=== PATIENT | female | born 1930 | race Caucasian/White ===

== ENCOUNTER 2016-07-14 20:04 | Emergency (ER) | payer OTHER, MEDICARE ==
[~2016-07-14 20:04] MED LIST: ADVIL PM CAPLE1 EACH PO; AMLODIPINE BESY10 M1 PO; ASPIR 8181 MG PO; ATORVASTATIN CA80 M1 PO; CARDIZEM60 MG PO; CARVEDILOL3.125 MG PO; COREG 6.256.25 MG PO; COREG6.25 M1 PO; COZAAR 50MG TAB50 MG PO; DIOVAN 160 MG160 MG PO; FLU VACCINE 0.0.5 ML IM; GABAPENTIN100 M2 PO; HYDRALAZINE HCL25 M1 PO; HYDROCHLOROTHIA25 M1 PO; HYDRODIURIL 2525 MG PO; JANUMET 1000 MG1 TAB PO; JANUMET 50-1,01 EACH PO; JANUMET XR 10001 TE1 PO; LEG CRAMPS PM PO; LEVEMIR FL100 UNIT/1 SC; LEVEMIR FLEX100 U/ML SC; LEVEMIR100 U/ML SC; LEVEMIR100 UNIT/1 SC; LYRICA75 M1 PO; LYRICA75 MG PO; METFORMIN ER500 MG PO; METOPROLOL SUCC25 M1 PO; NEURONTIN100 MG PO; NIFEDIPINE ER30 M2 PO; NIFEDIPINE ER30 MG PO; NORVASC 5MG TAB5 MG PO; NOVOLIN R100 UNIT/1 SC; PLAVIX75 M1 PO; PROCARDIA XL30 MG PO; VICODIN 300 MG-1 TAB PO
[2016-07-14] MEDS ORDERED: LOSARTAN POTASS50 M1 PO (20:13)
[2016-07-14] MEDS ORDERED: AMITIZA8 MC1 PO (20:24)
[2016-07-14] MEDS ORDERED: TAMSULOSIN HCL0.4 M1 PO (20:26)
[2016-07-14] MEDS ORDERED: ELIQUIS2.5 M1 PO (20:26)
[2016-07-14] MEDS ORDERED: ATORVASTATIN CA80 M1 PO (20:27)
[2016-07-14] MEDS ORDERED: HYDRALAZINE HCL50 M1 PO (20:27)
[2016-07-14] MEDS ORDERED: GABAPENTIN100 M2 PO (20:27)
[2016-07-14] MEDS ORDERED: LABETALOL HCL200 M1 PO (20:28)
[2016-07-14] MEDS ORDERED: CHOLESTYRAMINE P4 GM PO (20:29)
[2016-07-14] MEDS ORDERED: PERIOGARD473 ML PO (20:30)
[2016-07-14] MEDS ORDERED: NOVOLOG FL100 UNIT/1 SC (20:30)
[2016-07-14] MEDS ORDERED: LO-DOSE ASPIRIN81 MG PO (20:31)
[2016-07-14] MEDS ORDERED: PREVACID30 M2 PO (20:31)
[2016-07-14] MEDS ORDERED: MULTI-DAY VITA1 EACH PO (20:31)
[2016-07-14 20:32] LABS: ABSOLUTE BASOPHIL COUNT 0 /CUMM (0.0-0.2); ABSOLUTE EOSINOPHIL COUNT 0.4 /CUMM (0.0-0.7); ABSOLUTE GRANULOCYTE CT 4.3 /CUMM (1.4-6.5); ABSOLUTE LYMPH COUNT 2.6 /CUMM (1.2-3.4); ABSOLUTE MONOCYTE COUNT 0.7 /CUMM (0.10-0.60); BASOPHIL % 0.5 % (0.0-2.0); EOSINOPHIL % 4.8 % (0-5); GRANULOCYTE % 53.6 % (42.2-75.2); HEMATOCRIT 27.8 % (37-47); MEAN CORPUSCULAR HGB 29.4 PG (27.0-31.0); MEAN CORPUSCULAR HGB CONC 33.4 G/DL (33.0-37.0); MEAN CORPUSCULAR VOLUME 87.9 FL (81.0-99.0); MEAN PLATELET VOLUME 10.2 FL (7.4-10.4); PLATELET COUNT 230 /CUMM (130-400); RBC DISTRIBUTION WIDTH 15.2 % (11.5-14.5); RED BLOOD CELL CT 3.16 /CUMM (4.20-5.40); WHITE BLOOD CELL COUNT 8.1 /CUMM (4.8-10.8)
[2016-07-14] MEDS ORDERED: MAGNESIUM250 M2 PO (20:32)
[2016-07-14] MEDS ORDERED: GAS-X125 MG PO (20:32)
[2016-07-14] MEDS ORDERED: LEVEMIR FL100 UNIT/1 SC (20:33)
[2016-07-14] MEDS ORDERED: IRON325 M3 PO (20:33)
[2016-07-14 20:40] LABS: PTT 32 SEC (25-37)
--- NOTE | 2016-07-14 20:44 | ED GENERAL ADULT ---
History of Present Illness General Chief Complaint: Altered Mental Status Stated Complaint: BIBA FOR AMS Source: patient, family, old records Exam Limitations: language barrier Vital Signs & Intake/Output Vital Signs & Intake/Output Vital Signs Date Time Temp Pulse Resp B/P B/P Pulse O2 O2 Flow FiO2 Mean Ox Delivery Rate 07/14 2233 97.9 78 18 170/73 96 Room Air 07/14 2030 97 Room Air 07/14 2004 97.6 61 18 135/63 96 Room Air Allergies Coded Allergies: NO KNOWN ALLERGIES (05/29/15) Reconcile Medications Apixaban (Eliquis) 2.5 MG TABLET 0.5 TAB PO BID BLOOD THINNER (Reported) Aspirin (Lo-Dose Aspirin EC) 81 MG TABLET.DR 1 TAB PO DAILY HEART/BLOOD ( Reported) Atorvastatin Calcium 80 MG TABLET 1 TAB PO DAILY CHOLESTEROL (Reported) Bisacodyl (Dulcolax) 10 MG SUPP.RECT 1 SUP RC DAILY PRN STOOL SOFTENER Chlorhexidine Gluconate (Periogard) 0.12 % MOUTHWASH 15 ML PO TID GUMS ( Reported) Cholestyramine (With Sugar) (Cholestyramine Packet) 4 GRAM POWD.PACK 1 PAC PO DAILY UNKNOWN (Reported) Ferrous Sulfate (IRON) 325 MG (65 MG IRON) TABLET 1 TAB PO DAILY SUPPLEMENT ( Reported) Gabapentin 100 MG CAPSULE 2 CAP PO DAILY UNKNOWN (Reported) Hydralazine HCl 50 MG TABLET 1 TAB PO Q8H HEART/BP (Reported) Insulin Aspart, Recombinant (Novolog Flexpen) 100 UNIT/ML INSULN.PEN DM ( Reported) Insulin Detemir (Levemir Flextouch) 100 UNIT/ML (3 ML) INSULN.PEN 20 UNITS SC DAILY DM (Reported) Labetalol HCl 200 MG TABLET 1 TAB PO BID HEART/BP (Reported) Lansoprazole (Prevacid) 30 MG TAB.RAP.DR 1 TAB PO DAILY GI (Reported) Losartan Potassium 50 MG TABLET 1 TAB PO BID HEART/BP (Reported) Lubiprostone (Amitiza) 8 MCG CAPSULE 1 CAP PO BID GI (Reported) Magnesium Oxide (Magnesium) 250 MG TABLET 1 TAB PO BID SUPPLEMENT (Reported) Multivitamin (Multi-Day Vitamins) 1 EACH TABLET 1 TAB PO DAILY SUPPLEMENT ( Reported) Peg 3350/Na Sulf,Bicarb,Cl/KCl (Golytely Packet) 227.1-21.5 POWD.PACK 1 PAC G TUBE ONCE PRN CONSTIPATION MIX WITH 6-8 OZ OF WATER Simethicone (Gas-X) 125 MG CAPSULE 1 CAP PO 4XDAILY GAS (Reported) Tamsulosin HCl 0.4 MG CAP.ER.24H 1 CAP PO DAILY (Reported) Triage Note: BIBA FROM HOME FOR INCREASED LETHARGY AND ?AMS. FAMILY REPORTS TO EMS DECREASED PO INTAKE AND DIARRHEA X3-4 DAYS. FAMILY ALSO STATES PT IS MORE SLOW TO RESPOND THAN USUAL. ALERT, ABLE TO ANSWER QUESTIONS AND FOLLOW COMMANDS. COMPLETE L SIDED PARALYSIS S/P CVA. DENIES PAIN. Triage Nurses Notes Reviewed? 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 Family also state the patient's head generalized weakness and malaise and mumbling of words and confusion. Patient's had decreased by mouth intake. Patient does have a G- tube for feeding due to the past history of stroke. Denies any fevers chills chest pain cough shortness of breath (EDY WANG) Past History Travel History Traveled to [place] past 21 day No Medical History Any Pertinent Medical History? see below for history Neurological: CVA EENT: cataracts, epistaxis Cardiovascular: AFIB, hypertension, hyperlipidemia, varicose veins Respiratory: pulmonary embolism, pulmonary edema Gastrointestinal: ACID REFLUX Hepatic: NONE Renal: RENAL ARTERY STENOSIS Musculoskeletal: chronic back pain, disk herniation, osteoarthritis, Back surgery Psychiatric: NONE Endocrine: DM Blood Disorders: NONE Cancer(s): NONE RN PHYSICIAN OFFICE/Reproductive: fibroid, UTERINE FIBROIDS History of MRSA: No History of VRE: No History of CDIFF: No Surgical History Surgical History: BACK SURGERY Psychosocial History Who do you live with Daughter Services at Home None What is your primary language Lithuanian Tobacco Use: Cognitive Impairment Family History Family History, If Any: BROTHER (unknown). MOTHER ( unknown medical hx). . Hx Contributory? No (EDY WANG) Review of Systems Review of Systems Constitutional: Reports: see HPI, malaise, weakness. Denies: chills, fever. EENTM: Reports: no symptoms. Respiratory: Reports: no symptoms. Cardiovascular: Reports: no symptoms. GI: Reports: see HPI. Genitourinary: Reports: no symptoms. Musculoskeletal: Reports: no symptoms. Skin: Reports: no symptoms. Neurological/Psychological: Reports: no symptoms. Hematologic/Endocrine: Reports: no symptoms. Immunologic/Allergic: Reports: no symptoms. All Other Systems: Reviewed and Negative (EDY WANG) Physical Exam Physical Exam General Appearance: no apparent distress, alert, awake, comfortable Head: atraumatic Eyes: Bilateral: normal appearance, PERRL, EOMI. Ears, Nose, Throat: normal pharynx, normal ENT inspection, hearing grossly normal Neck: normal inspection Respiratory: normal breath sounds, chest non-tender, no respiratory distress Cardiovascular: regular rate/rhythm Peripheral Pulses: 2+ radial (R), 2+ radial (L) Gastrointestinal: soft, G-TUBE PLACEMENT NOTED NORMAL INSPECTION GENERALIZED POINT TENDERNESS NOTED Extremities: normal inspection, normal capillary refill, no edema Skin: intact, normal color, warm/dry Comments: Left upper and lower extremity noted paralysis Right upper extremity and lower extremity myotome's intact Core Measures ACS in differential dx? No CVA/TIA Diagnosis: No Severe Sepsis Present: No Septic Shock Present: No (EDY WANG) Progress Differential Diagnoses I considered the following diagnoses in my evaluation of the patient: [Sepsis, UTI, pneumonia, TIA, CVA, dehydration, electrolyte abnormality,RETA fecal impaction, constipation, obstruction of bowel] Plan of Care: Orders Procedure Date/time Status CULTURE,STOOL 07/14 2045 Active C.DIFFICILE 07/14 2045 Active CULTURE,URINE 07/14 2042 Active Add-on Test (ER Only) 07/14 2040 Active Straight Cath 07/14 2040 Active BLOOD CULTURE 07/15 2039 Active LIPASE 07/15 2019 Complete LACTIC ACID 07/15 2019 Complete AMYLASE 07/15 2019 Complete BLOOD CULTURE 07/14 2018 Active URINALYSIS 07/14 2018 Complete TROPONIN LEVEL 07/14 2018 Complete PARTIAL THROMBOPLASTIN TIME 07/14 2018 Complete PROTHROMBIN TIME 07/14 2018 Complete COMPREHENSIVE METABOLIC PANEL 07/14 2018 Complete CBC WITHOUT DIFFERENTIAL 07/14 2018 Complete EKG 07/14 2014 Active Laboratory Tests 07/14/162114: Urine Color YEL, Urine Clarity CLEAR, Urine pH 5.5, Ur Specific [place] 1.025, Urine Protein NEG, Urine Ketones NEG, Urine Nitrite NEG, Urine Bilirubin NEG, Urine Urobilinogen 0.2, Ur Leukocyte Esterase NEG, Ur Microscopic EXAM NOT REQUIRED, Urine Hemoglobin NEG, Urine Glucose NEG 07/14/162019: Anion Gap 13, Estimated GFR 59 L, BUN/Creatinine Ratio 35.6 H, Glucose 130 H, Lactic Acid 1.3, Calcium 9.6, Total Bilirubin 1.0, AST 35, ALT 38, Alkaline Phosphatase 179 H, Troponin I < 0.01, Total Protein 6.3, Albumin 3.4 L, Globulin 2.9, Albumin/Globulin Ratio 1.2, Amylase 68, Lipase 71, PT 14.0 H, INR 1.34 H, APTT 32, CBC w Diff NO MAN DIFF REQ, RBC 3.16 L, MCV 87.9, MCH 29.4, RDW 15.2 H, MPV 10.2, Gran % 53.6, Lymphocytes % 32.5, Monocytes % 8.6, Eosinophils % 4.8, Basophils % 0.5, Absolute Granulocytes 4.3, Absolute Lymphocytes 2.6, Absolute Monocytes 0.7 H, Absolute Eosinophils 0.4, Absolute Basophils 0, PUBS MCHC 33.4 Microbiology 07/14 2205 BLOOD: Blood Culture - RECD 07/14 2114 URINE ROUT: Urine Culture - RECD 07/14 2114 STOOL: Clostridium difficile Toxin A & B - RECD 07/14 2114 STOOL: Stool Culture - RECD 07/15 2019 BLOOD: Blood Culture - RECD Patient on this examination does follow all commands Patient does know moderate Mongolian and does cooperate Patient was afebrile blood work was unremarkable urine unremarkable blood cultures pending urine culture pending CT scan of chest was unremarkable however CT scan of abdomen shows consideration of fecal impaction. Lying patient left lateral upon digital rectal exam performed by me I was unable to palpate impaction patient also had a side lying Fleet enema placed with no significant bowel movements produced. Bowel is brown in nature negative fecal occult I discussed disposition and plan with family members in which they state that since patient has had a stroke she has not left the residence except via ambulance. Patient does have home care and visiting nurses however when discussing with patient plan of following up that they were unable to follow-up in outpatient service for fecal impaction that I advised patient to return to emergency room if symptoms worsen and if no improvement on Friday to return to emergency room if patient still had presenting complaints as today. Discussed patient with Dr. Felipe who also agrees. Patient will be transported via [facility]. I advice family member and caregiver to begin stool softener and laxative to improve symptoms At this time patient's only option for follow-up is to return to the emergency room if she continues to have symptoms (NICK HUGHES,EDY) Diagnostic Imaging: Viewed by Me: CT Scan. Radiology Impression: SEE COMMENTS Initial ED EKG: sINUS ARRHYTHMIA NOTED AT 61 BPM WITH FIRST-DEGREE av BLOCK Prior EKG: unchanged Comments: PATIENT: CHAMP COBIAN PRESENT AGE: 85 PATIENT ACCOUNT NO: [id number] : 29 LOCATION: ER ORDERING PHYSICIAN: EDY HUGHES SERVICE DATE: 07/14/16 EXAM TYPE: CAT - CT ABD & PELVIS W/O IV CONTRAS; CT CHEST WO IV CONTRAST EXAMINATION: CT CHEST WITHOUT CONTRAST CT ABDOMEN AND PELVIS WITHOUT CONTRAST CLINICAL INFORMATION: Abdominal pain. Malaise. Altered mental status. COMPARISON: CT chest 10/24/2015. CT scan abdomen and pelvis 05/29/2015. TECHNIQUE: Axial images obtained through the chest, abdomen and pelvis without oral or intravenous contrast. DLP: 1162.24 mGy-cm. FINDINGS: CT CHEST: Lungs: The lungs are clear with no evidence of inflammation or nodules. Mediastinum: No mediastinal mass. No significant lymphadenopathy. Small shotty subcentimeter lymph nodes in the mediastinum. There is vascular calcifications of the aorta and coronary arteries. No pericardial effusion. Pleura: There is no pleural effusion. No pleural mass or thickening. Axilla: No lymphadenopathy. CT ABDOMEN AND PELVIS: LIVER, GALLBLADDER, AND BILIARY TREE: The liver is normal in size, shape, and attenuation. No focal hepatic lesion or biliary ductal dilatation is present. The gallbladder is unremarkable with no evidence of radiopaque gallstones, gallbladder wall thickening, or obvious pericholecystic inflammatory changes. PANCREAS: No acute change of the pancreas. No mass. No pancreatic duct dilatation. SPLEEN: Spleen normal in size and contour. No focal lesion. ADRENAL GLANDS: Adrenal glands are normal in size. No focal mass. KIDNEYS AND URETERS: Pedunculated cyst at the mid posterior pole of the left kidney measuring 1.5 cm. Cortical cyst in the midpole of right kidney measuring 1.3 cm. No renal or ureteral calculi. No hydronephrosis. BLADDER: Unremarkable. GASTROINTESTINAL TRACT: Percutaneous gastrotomy catheter in place. There is thickening of the wall of the distal rectum sigmoid measuring 1 cm. Stool is impacted in the rectum sigmoid. There is edema in the surrounding soft tissues extending into the presacral fat. Findings are that of fecal impaction with stercoral colitis. Moderate amount of scattered stool through the remainder of the colon. There is diverticulosis of colon but no diverticulitis. The appendix is not seen. No inflammation of the right lower quadrant mesentery. The small bowel loops are normal. MESENTERY: No free air or free fluid. Edema in the presacral space around the rectum sigmoid related to stercoral colitis. ABDOMINAL WALL: No significant hernia is appreciated. LYMPH NODES: Normal. VASCULAR: Atherosclerotic vascular calcifications of the aorta and major branch vessels of the aorta. PELVIC VISCERA: Uterus is anteverted. Calcified fibroid in the left fundal region. No adnexal abnormality. OSSEOUS STRUCTURES: Multilevel degenerative change of the spine with endplate spurs and facet joint arthrosis. IMPRESSION: CT CHEST: No acute change. CT SCAN ABDOMEN AND PELVIS: Fecal impaction in rectum and sigmoid with bowel wall thickening and surrounding edema in the rectum sigmoid consistent with stercoral colitis. DICTATED BY: ANNA PAGAN MD DATE/TIME DICTATED:07/14/162140 REBAR WORKER:ZOHREH DATE/TIME TRANSCRIBED:07/14/162140 PATIENT: CHAMP COBIAN PRESENT AGE: 85 PATIENT ACCOUNT NO: [id number] : 29 LOCATION: [facility] ORDERING PHYSICIAN: EDY HUGHES SERVICE DATE: 07/14/16 EXAM TYPE: CAT - CT HEAD WO IV CONTRAST EXAMINATION: CT HEAD WITHOUT CONTRAST CLINICAL INFORMATION: History of right CVA COMPARISON: CT of head 12/31/2015 TECHNIQUE: Contiguous axial imaging was performed from the skull base to vertex without intravenous administration of contrast. DLP: 743.8 mGy-cm FINDINGS: There is focal encephalomalacia in the right parietal lobe from old MCA infarct stable since prior exam. There is no evidence of acute intracranial hemorrhage or acute territorial infarction. No abnormal mass effect or midline shift is seen. Francis to white matter differentiation is well preserved. No extra-axial fluid collections are identified. There is atrophy with prominence of the ventricles and the sulci and hypodensity of the periventricular white matter due to chronic small vessel ischemic disease. There is vascular calcifications of the internal carotid arteries bilaterally. The osseous structures and soft tissues are normal. The mastoid air cells and visualized portions of the paranasal sinuses are well aerated. IMPRESSION: 1. No acute intracranial pathology. 2. Old right MCA territory infarct stable since prior CAT scan of 2015 (EDY WANG) Departure Departure Disposition: HOME OR SELF CARE Condition: Stable Clinical Impression Primary Impression: Fecal impaction Referrals: TYLOR ARORA,RAMBO David (PCP/Family) Additional Instructions: As discussed begin the prescription of the DOCULSATE for stool softener and a prescription of GoLYTELY for constipation. If symptoms worsen return to emergency room. If no better on Friday return to emergency room Prescriptions waiting at [facility] Continue home medications Departure Forms: Customer Survey General Discharge Information Prescriptions: Current Visit Scripts Bisacodyl (Dulcolax) 1 SUP RC DAILY PRN STOOL SOFTENER #10 SUP Peg 3350/Na Sulf,Bicarb,Cl/KCl (Golytely Packet) 1 PAC G TUBE ONCE PRN CONSTIPATION #1 PAC Ref 1 MIX WITH 6-8 OZ OF WATER (EDY WANG) PA/REAL ESTATE SPECIALIST Co-Sign Statement Statement: ED Attending supervision documentation- [] I saw and evaluated the patient. I have also reviewed all the pertinent lab results and diagnostic results. I agree with the findings and the plan of care as documented in the PA's/REAL ESTATE SPECIALIST's documentation. [x] I have reviewed the ED Record and agree with the PA's/REAL ESTATE SPECIALIST's documentation. [] Additions or exceptions (if any) to the PAs/REAL ESTATE SPECIALIST's note and plan are summarized below: [] (CARROLL ARORA,LEONOR Sanabria) Critical Care Note Critical Care Note Critical Care Time: non-applicable (EDY WANG)
--- NOTE | 2016-07-14 21:44 | CT SCAN REPORT ---
EXAMINATION: CT HEAD WITHOUT CONTRAST CLINICAL INFORMATION: History of right CVA COMPARISON: CT of head 12/31/2015 TECHNIQUE: Contiguous axial imaging was performed from the skull base to vertex without intravenous administration of contrast. DLP: 743.8 mGy-cm FINDINGS: There is focal encephalomalacia in the right parietal lobe from old MCA infarct stable since prior exam. There is no evidence of acute intracranial hemorrhage or acute territorial infarction. No abnormal mass effect or midline shift is seen. Francis to white matter differentiation is well preserved. No extra-axial fluid collections are identified. There is atrophy with prominence of the ventricles and the sulci and hypodensity of the periventricular white matter due to chronic small vessel ischemic disease. There is vascular calcifications of the internal carotid arteries bilaterally. The osseous structures and soft tissues are normal. The mastoid air cells and visualized portions of the paranasal sinuses are well aerated. IMPRESSION: 1. No acute intracranial pathology. 2. Old right MCA territory infarct stable since prior CAT scan of 2015
--- NOTE | 2016-07-14 22:07 | CT SCAN REPORT ---
EXAMINATION: CT CHEST WITHOUT CONTRAST CT ABDOMEN AND PELVIS WITHOUT CONTRAST CLINICAL INFORMATION: Abdominal pain. Malaise. Altered mental status. COMPARISON: CT chest 10/24/2015. CT scan abdomen and pelvis 05/29/2015. TECHNIQUE: Axial images obtained through the chest, abdomen and pelvis without oral or intravenous contrast. DLP: 1162.24 mGy-cm. FINDINGS: CT CHEST: Lungs: The lungs are clear with no evidence of inflammation or nodules. Mediastinum: No mediastinal mass. No significant lymphadenopathy. Small shotty subcentimeter lymph nodes in the mediastinum. There is vascular calcifications of the aorta and coronary arteries. No pericardial effusion. Pleura: There is no pleural effusion. No pleural mass or thickening. Axilla: No lymphadenopathy. CT ABDOMEN AND PELVIS: LIVER, GALLBLADDER, AND BILIARY TREE: The liver is normal in size, shape, and attenuation. No focal hepatic lesion or biliary ductal dilatation is present. The gallbladder is unremarkable with no evidence of radiopaque gallstones, gallbladder wall thickening, or obvious pericholecystic inflammatory changes. PANCREAS: No acute change of the pancreas. No mass. No pancreatic duct dilatation. SPLEEN: Spleen normal in size and contour. No focal lesion. ADRENAL GLANDS: Adrenal glands are normal in size. No focal mass. KIDNEYS AND URETERS: Pedunculated cyst at the mid posterior pole of the left kidney measuring 1.5 cm. Cortical cyst in the midpole of right kidney measuring 1.3 cm. No renal or ureteral calculi. No hydronephrosis. BLADDER: Unremarkable. GASTROINTESTINAL TRACT: Percutaneous gastrotomy catheter in place. There is thickening of the wall of the distal rectum sigmoid measuring 1 cm. Stool is impacted in the rectum sigmoid. There is edema in the surrounding soft tissues extending into the presacral fat. Findings are that of fecal impaction with stercoral colitis. Moderate amount of scattered stool through the remainder of the colon. There is diverticulosis of colon but no diverticulitis. The appendix is not seen. No inflammation of the right lower quadrant mesentery. The small bowel loops are normal. MESENTERY: No free air or free fluid. Edema in the presacral space around the rectum sigmoid related to stercoral colitis. ABDOMINAL WALL: No significant hernia is appreciated. LYMPH NODES: Normal. VASCULAR: Atherosclerotic vascular calcifications of the aorta and major branch vessels of the aorta. PELVIC VISCERA: Uterus is anteverted. Calcified fibroid in the left fundal region. No adnexal abnormality. OSSEOUS STRUCTURES: Multilevel degenerative change of the spine with endplate spurs and facet joint arthrosis. IMPRESSION: CT CHEST: No acute change. CT SCAN ABDOMEN AND PELVIS: Fecal impaction in rectum and sigmoid with bowel wall thickening and surrounding edema in the rectum sigmoid consistent with stercoral colitis.
[2016-07-14 22:34] VITALS: BP 170/73
[2016-07-14] MEDS ORDERED: DULCOLAX10 M1 RC (23:25)
[2016-07-14] MEDS ORDERED: GOLYTELY PACKE1 EACH G TUBE (23:25)
== END 2016-07-14 23:33 ==
LOC: ERH 20:04
PROVIDERS: Emergency Medicine
DX: K56.41 Fecal impaction (principal); R19.7 Diarrhea, unspecified; R53.1 Weakness; I10 Essential (primary) hypertension; I48.91 Unspecified atrial fibrillation; E11.9 Type 2 diabetes mellitus without complications; Z79.4 Long term (current) use of insulin
CPT/HCPCS: 74176; 81003; 87040; 87045; 87086; 87147; 93005; 93010

== ENCOUNTER 2016-07-19 11:53 | Inpatient (IN) | payer OTHER, MEDICARE ==
[~2016-07-19] VITALS: Ht 157.5 cm; Wt 74.6 kg
[~2016-07-19 11:53] MED LIST changes: +AMITIZA8 MC1 PO; +CHOLESTYRAMINE P4 GM PO; +DULCOLAX10 M1 RC; +ELIQUIS2.5 M1 PO; +GAS-X125 MG PO; +GOLYTELY PACKE1 EACH G TUBE; +HYDRALAZINE HCL50 M1 PO; +IRON325 M3 PO; +LABETALOL HCL200 M1 PO; +LO-DOSE ASPIRIN81 MG PO; +LOSARTAN POTASS50 M1 PO; +MAGNESIUM250 M2 PO; +MULTI-DAY VITA1 EACH PO; +NOVOLOG FL100 UNIT/1 SC; +PERIOGARD473 ML PO; +PREVACID30 M2 PO; +TAMSULOSIN HCL0.4 M1 PO
--- NOTE | 2016-07-19 12:01 | ED AMS/SEIZURE/WEAK/DIZZY ---
History of Present Illness General Chief Complaint: Altered Mental Status Stated Complaint: HYPOGLYCEMIA Source: patient, old records, [employer] Exam Limitations: clinical condition Vital Signs & Intake/Output Vital Signs & Intake/Output Vital Signs Date Time Temp Pulse Resp B/P B/P Pulse O2 O2 Flow FiO2 Mean Ox Delivery Rate 07/19 1400 96.0 59 16 157/67 99 Nasal 2.0L Cannula 07/19 1300 98 Nasal 2.0L Cannula 07/19 1204 97.0 65 20 135/62 97 Room Air Allergies Coded Allergies: NO KNOWN ALLERGIES (05/29/15) Reconcile Medications Apixaban (Eliquis) 5 MG TABLET 5 MG PO BID a fib Aspirin (Lo-Dose Aspirin EC) 81 MG TABLET.DR 1 TAB PO MoTuFr HEART/BLOOD ( Reported) Atorvastatin Calcium 80 MG TABLET 1 TAB PO 1700 HLD (Reported) Chlorhexidine Gluconate (Periogard) 0.12 % MOUTHWASH 15 ML PO MoWeFr GUMS ( Reported) Ferrous Sulfate (IRON) 325 MG (65 MG IRON) TABLET 1 TAB PO DAILY SUPPLEMENT ( Reported) Gabapentin 100 MG CAPSULE 2 CAP PO BID NEUROPATHIC PAIN (Reported) Hydralazine HCl 25 MG TABLET 100 MG PO BID high blood pressure Insulin Aspart (Novolog) 100 UNIT/ML VIAL 0 UNITS SC TIDAC diabetes 80 - 150 0 units 151 - 200 1 unit 201 - 250 2 units 251 - 300 3 units 301 - 350 4 units 351 - 400 6 units > 400 8 units and call Insulin Detemir (Levemir) 100 UNIT/ML VIAL 10 UNITS SC AT BEDTIME diabetes Insulin Detemir (Levemir) 100 UNIT/ML VIAL 10 UNITS SC BID DIABETES Labetalol HCl 100 MG TABLET 50 MG PO BID a fib Lansoprazole (Prevacid) 30 MG TAB.RAP.DR 1 TAB PO DAILY GI (Reported) Losartan Potassium 50 MG TABLET 1 TAB PO BID HEART/BP (Reported) Multivitamin (Multi-Day Vitamins) 1 EACH TABLET 1 TAB PO DAILY SUPPLEMENT ( Reported) Tamsulosin HCl 0.4 MG CAP.ER.24H 1 CAP PO AT BEDTIME (Reported) Triage Nurses Notes Reviewed? yes Onset: Abrupt Timing: single episode today Injury Environment: home Severity: moderate, severe No Modifying Factors: none Associated Symptoms: UNRESPONSIVE HPI: This is an 85-year-old female with history of stroke on Eliquis with left-sided paralysis who presents via EMS from home for chief complaint of unresponsive episode. According to family member and the aid she appeared to have some respiratory distress as she was sleeping. They state that her face got very red. He found her to be hypoglycemic and hypotensive in the field. She was given glucose and IV fluids. Patient arrives awake but lethargic. She appears pale. Patient was seen here on Friday for abdominal pain and she was determined to have fecal impaction and sent home with [employer]. They were unable to get preauthorization for the sairaly so she has been getting lactulose for the last couple days. She's been having good bowel movements with that. No vomiting. She's had some diminished oral intake. She did have some scrambled eggs this morning. Heart rate found to be in the 40s on the monitor. No history of bradycardia. History of A. fib in the past. She is currently on labetalol. No recent changes to her beta blockers. Past History Travel History Traveled to [place] past 21 day No Medical History Any Pertinent Medical History? 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 MOTHER ( unknown medical hx). . Hx Contributory? No Review of Systems Review of Systems Constitutional: Reports: see HPI (PER FAMILY). EENTM: Reports: no symptoms. Respiratory: Denies: short of breath. Cardiovascular: Denies: chest pain. GI: Reports: constipation. Denies: vomiting. Genitourinary: Denies: frequency. Musculoskeletal: Reports: no symptoms. Skin: Reports: no symptoms. Neurological/Psychological: Reports: see HPI (UNRESPONSIVE EPISODE). Hematologic/Endocrine: Denies: bleeding. Immunologic/Allergic: Reports: no symptoms. All Other Systems: Reviewed and Negative Physical Exam Physical Exam General Appearance: alert, awake, mild distress, thin Head: atraumatic, normal appearance Eyes: Bilateral: PERRL, EOMI. Ears, Nose, Throat: normal pharynx Neck: normal inspection, supple, full range of motion Cardiovascular: bradycardia Peripheral Pulses: 2+ radial (R), 2+ radial (L) Gastrointestinal: soft, non-tender Extremities: normal range of motion Neurologic/Psych: awake, oriented x 3 Skin: warm/dry, pallor Core Measures ACS in differential dx? Yes ASA ordered for poss ACS? No-ACS ruled out CVA/TIA Diagnosis: No Severe Sepsis Present: No Septic Shock Present: No Progress Differential Diagnosis: arrythmia, anemia, electrolyte imbalance, sepsis, cva/ tia, MEDICATION SIDE EFFECT, SICK SINUS Plan of Care: Orders Procedure Date/time Status Vital Signs 07/19 143 Active Code Status 07/19 1434 Active Patient Data 07/19 1412 Active Admit to inpatient 07/19 1334 Active Add-on Test (ER Only) 07/19 1321 Active Add-on Test (ER Only) 07/19 1316 Active EKG 07/19 1312 Active Add-on Test (ER Only) 07/19 1228 Active Straight Cath 07/19 1228 Active URINE DRUGS OF ABUSE 07/19 1228 Active URINALYSIS 07/19 1228 Active TROPONIN LEVEL 07/19 1208 Complete PROTHROMBIN TIME 07/19 1208 Complete MAGNESIUM 07/19 1208 Complete LACTIC ACID 07/19 1208 Complete COMPREHENSIVE METABOLIC PANEL 07/19 1204 Complete CBC WITHOUT DIFFERENTIAL 07/19 1204 Complete EKG 07/19 1204 Active Current Medications Sig/Renee Start time Last Medication Dose Stop Time Status Admin Amiodarone HCl/ 150 MG ONCE ONE 07/19 1330 CAN Dextrose 07/19 1339 (Nexterone) N/A 1 UNIT (No Carrier) Magnesium Sulfate 1 GM ONCE ONE 07/19 1330 AC (Mag Sulfate in D5) 07/19 1729 Dextrose/Water 100 ML (D5W) Laboratory Tests 07/19/16 1208: Anion Gap 11, Estimated GFR 59 L, BUN/Creatinine Ratio 22.2, Glucose 145 H, Lactic Acid 0.9, Calcium 8.8, Magnesium 1.9, Total Bilirubin 0.8, AST 36, ALT 51 , Alkaline Phosphatase 194 H, Troponin I < 0.01, Total Protein 5.2 L, Albumin 2.7 L, Globulin 2.5, Albumin/Globulin Ratio 1.1, PT 13.1 H, INR 1.25 H, CBC w Diff NO MAN DIFF REQ, RBC 2.76 L, MCV 87.9, MCH 28.8, RDW 15.0 H, MPV 10.4, Gran % 62.8, Lymphocytes % 25.0, Monocytes % 8.8, Eosinophils % 3.1, Basophils % 0.3, Absolute Granulocytes 3.8, Absolute Lymphocytes 1.5, Absolute Monocytes 0.5 , Absolute Eosinophils 0.2, Absolute Basophils 0, PUBS MCHC 32.8 L EKG, TELE MONITOR, XRAY, LABS ORDERED. PATIETN BRADYCARDIC IN HIGH 40'S. NO HISTORY OF BRADYCARDIA PER FAMILY AT BEDSIDE. PATIENT DOES NOT CONTRIBUTE MUCH TO HISTORY TAKING. - LOW K. IV POTASSIUM ORDERED. D/W DR BOLAND. POSSIBLE NON SUSTAINED VTACH ON MONITOR. COPY OF TRACING ON MONITOR REVIEWED WITH DR. BOLAND. FEELS LIKELY DUE TO ARTIFACT RATHER THAN TRUE DYSRHYTHMMIA. ADVISES AGAINST IV AMIODARONE. PATIENT TO REMAIN ON TELE MONITOR. PACER PADS PLACED. WILL BE ADMITTED TO TELEMETRY UNDER HOSPITALIST SERVICE. DAUGHTER JORDAN: [phone] (IN [place]) (AJ ARORA,DG) Diagnostic Imaging: Viewed by Me: Radiology Read. Discussed w/RAD: Radiology Read. Initial ED EKG: SINUS BRADYCARDIA Rhythm Strip: sinus bradycardia, atrial fibrillation Comments: PATIENT: CHAMP COBIAN PRESENT AGE: 85 PATIENT ACCOUNT NO: [id number] : 29 LOCATION: [facility] ORDERING PHYSICIAN: DG ROCHA MD SERVICE DATE: 07/19/16 EXAM TYPE: RAD - XRY-PORTABLE CHEST XRAY EXAMINATION: XR PORTABLE CHEST CLINICAL INFORMATION: Altered mental status. Evaluate for pneumonia. COMPARISON: Chest x-ray most recent prior dated 01/09/2016. TECHNIQUE: Portable frontal view of the chest was obtained. FINDINGS: Mild cardiomegaly. Central pulmonary vascular congestion. Hazy prominence of the interstitial markings slightly increased over the interval suspicious for mild interstitial edema. Differential possibility includes viral type pneumonia in the appropriate clinical setting. No gross pleural effusion. IMPRESSION: Mild vascular congestion. Mild pulmonary edema or community-acquired/viral pneumonia in the appropriate clinical setting. DICTATED BY: MICHAEL BURKS MD DATE/TIME DICTATED:07/19/161325 ETL CONSULTANT:ZOHREH DATE/TIME TRANSCRIBED:07/19/161325 CONFIDENTIAL, DO NOT COPY WITHOUT APPROPRIATE AUTHORIZATION. <Electronically signed in Other Vendor System> SIGNED BY: MICHAEL BURKS MD 07/19/16 1333 Departure Departure Time of Disposition: 1330 Disposition: STILL A PATIENT Condition: Stable Clinical Impression Primary Impression: Bradycardia Secondary Impressions: CHF (congestive heart failure), Hypokalemia, Non- sustained ventricular tachycardia, Sick sinus syndrome Referrals: TYLOR ARORA,RAMBO David (PCP/Family) Departure Forms: Customer Survey General Discharge Information Prescriptions: Current Visit Scripts Apixaban (Eliquis) 5 MG PO BID #30 Hydralazine HCl 100 MG PO BID #60 Labetalol HCl 50 MG PO BID #60 Insulin Detemir (Levemir) 10 UNITS SC AT BEDTIME 30 Days Insulin Aspart (Novolog) 0 UNITS SC TIDAC 30 Days 80 - 150 0 units 151 - 200 1 unit 201 - 250 2 units 251 - 300 3 units 301 - 350 4 units 351 - 400 6 units > 400 8 units and call Insulin Detemir (Levemir) 10 UNITS SC BID #10 ML Admission Note Spoke With: MANI MONIQUE MD Documentation of Exam: Documentation of any treatments & extenuating circumstances including Concerns Regarding Discharge (functional status, medication knowledge or non-compliance, living conditions, etc.) that warrant an admission rather than observation: [ TELE MONITOR, PACER PADS, CARDIOLOGY EVALUATION DR BOLAND (CONSULTED), HOLD BETA CBLOCKERS, MONITOR RENAL FUNCTION/ELECTROLYTES, ECHOCARDIOGRAM]
--- NOTE | 2016-07-19 12:13 | NUR ---
PT BIBA FOR AN UNRESPONSIVE EPISODE AND LOW BLOOD SUGAR. PER EMS ON ARRIVAL PT HAD AGONAL RESPIRATIONS AND WAS UNRESPONSIVE. PT WAS FOUND TO HAVE A BS OF 41. PT WAS GIVEN AN AMP OF D50 WITH GOOD RESPONSE. PT ARRIVES IN ER ALERT AND ANSWERING QUESTIONS. PT BS ON ARRIVAL IS 167. PT DENIES ANY COMPLAINTS. PT REORIENTED TO WHY SHE ARRIVED IN ER. PT STATES SHE HAS BEEN TAKING HER MEDICATION CORRECTLY. PT HAS A HX OF CVA
--- NOTE | 2016-07-19 12:14 | NUR ---
LABS DRAWN AND SENT
[2016-07-19 12:24] LABS: ABSOLUTE BASOPHIL COUNT 0 /CUMM (0.0-0.2); ABSOLUTE EOSINOPHIL COUNT 0.2 /CUMM (0.0-0.7); ABSOLUTE GRANULOCYTE CT 3.8 /CUMM (1.4-6.5); ABSOLUTE LYMPH COUNT 1.5 /CUMM (1.2-3.4); ABSOLUTE MONOCYTE COUNT 0.5 /CUMM (0.10-0.60); BASOPHIL % 0.3 % (0.0-2.0); EOSINOPHIL % 3.1 % (0-5); GRANULOCYTE % 62.8 % (42.2-75.2); HEMATOCRIT 24.3 % (37-47); MEAN CORPUSCULAR HGB 28.8 PG (27.0-31.0); MEAN CORPUSCULAR HGB CONC 32.8 G/DL (33.0-37.0); MEAN CORPUSCULAR VOLUME 87.9 FL (81.0-99.0); MEAN PLATELET VOLUME 10.4 FL (7.4-10.4); PLATELET COUNT 209 /CUMM (130-400); RED BLOOD CELL CT 2.76 /CUMM (4.20-5.40)
--- NOTE | 2016-07-19 12:31 | NUR ---
PT CLEANED AND CHANGED AND FAMILY AT BEDSIDE DR ROCHA ALSO AT BEDSIDE FOR EVALUATION
--- NOTE | 2016-07-19 13:28 | NUR ---
EVENT STRIP AT 1310 SHOWED A RUN OF VTACH DR ROCHA AWARE AND PACER PADS PLACED ON PT AND EKG DONE STAT
--- NOTE | 2016-07-19 13:33 | RADIOLOGY REPORT ---
EXAMINATION: XR PORTABLE CHEST CLINICAL INFORMATION: Altered mental status. Evaluate for pneumonia. COMPARISON: Chest x-ray most recent prior dated 01/09/2016. TECHNIQUE: Portable frontal view of the chest was obtained. FINDINGS: Mild cardiomegaly. Central pulmonary vascular congestion. Hazy prominence of the interstitial markings slightly increased over the interval suspicious for mild interstitial edema. Differential possibility includes viral type pneumonia in the appropriate clinical setting. No gross pleural effusion. IMPRESSION: Mild vascular congestion. Mild pulmonary edema or community-acquired/viral pneumonia in the appropriate clinical setting.
[2016-07-19 13:54] LABS: PT 13.1 SEC (9.4-12.5)
--- NOTE | 2016-07-19 14:54 | History & Physical ---
FOUZIAJuanaElySKYEASHVIN 07/19/16 1454: General Information and HPI MD Statement: I have seen and personally examined CHAMP LANDAVERDE and documented this H&P. The patient is a 85 year old F who presented with a patient stated chief complaint of unresponsive episode. Source of Information: family, old records, EMS Exam Limitations: clinical condition, poor historian History of Present Illness: Ms Landaverde is an 85-year-old woman who was known to be in her usual state of health until the last 2 weeks. 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 She was brought to [facility] after found to be unresponsive by her soaker meat this a.m. As per the patient's family, Ms. Landaverde was more lethargic and had decreased by mouth intake in the last 2 weeks. She was recently seen in [facility] 1 week ago for a chief concern of abdominal discomfort, secondary to fecal impaction. After the patient had a nap late morning today, she was found to have had difficulty breathing, diaphoretic and was unresponsive subsequently. Blood glucose reading at that time was less than 50 mg/dl. She regained consciousness after she received dextrose IV. She also complained of chest discomfort, with no radiation. Details of chest discomfort could not be obtained from the patient. As per the family, Ms. Landaverde did not have any shortness of breath, cough, fever, abdominal pain, lucia/brbpr, change in urinary habits, palpitations, pedal edema or chest pain recently. Mostly bedbound, and is being taken care of by the family actively. Report medication compliance. Sees primary care physician regularly, and was not seen by a heavy equipment rental manager lately. 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 MOTHER ( unknown medical hx). . Psychosocial History Who Do You Live With? child Services at Home: None Primary Language: Slovenian Functional Ability ADLs Needs Assist: dressing, eating, toileting, bathing. Ambulation: cane, walker IADLs Needs Assist: shopping, housework, finances, food prep, telephone, transportation, medication admin. Review of Systems Review of Systems Constitutional: Reports: see HPI. Denies: chills, fever. EENTM: Denies: blurred vision. Cardiovascular: Reports: chest pain. Denies: edema, orthopena. Respiratory: Denies: cough. GI: Reports: constipation, diarrhea. Denies: abdominal pain, melena. Genitourinary: Denies: dysuria, hematuria. Musculoskeletal: Denies: back pain. Skin: Denies: cysts, dryness. Neurological/Psychological: Denies: anxiety, pre-existing deficit. Hematologic/Endocrine: Denies: bruising. Exam & Diagnostic Data Last 24 Hrs of Vital Signs/I&O Vital Signs Date Time Temp Pulse Resp B/P B/P Pulse O2 O2 Flow FiO2 Mean Ox Delivery Rate 07/19 1944 98.6 68 20 142/60 99 Nasal 2.0L Cannula 07/19 1744 98.4 56 15 164/69 97 Nasal 2.0L Cannula 07/19 1538 97.7 64 15 167/71 98 Nasal 2.0L Cannula 07/19 1400 96.0 59 16 157/67 99 Nasal 2.0L Cannula 07/19 1300 98 Nasal 2.0L Cannula 07/19 1204 97.0 65 20 135/62 97 Room Air Intake & Output 07/19 1600 05 0800 07/19 0000 Intake Total Output Total Balance Patient 180 lb Weight Weight Estimated Measurement Method Physical Exam General Appearance No Acute Distress, AAO x1 Skin No Rashes, No Breakdown Skin Temp/Moisture Exam: Warm/Dry Sepsis Skin Exam (color): Normal for Ethnicity HEENT Atraumatic, PERRLA, EOMI Neck Supple, No JVD, No thryomegaly, +2 Carotid Pulse wo Bruit Lymphatic Cervical nl Cardiovascular Regular Rate, Normal S1, Normal S2 Lungs Normal Air Movement Abdomen Normal Bowel Sounds, Soft, No Tenderness Neurological Reflexes 2+, strengh 2/5 left upper and lower extremity strength 4/ 5 right upper and lower extremity, cranial nerves could not be tested cerebellar tests could not be tested. Extremities No Clubbing, No Cyanosis, No Edema Vascular Pulses Symmetrical Sepsis Peripheral Pulse Location: Dorsalis Pedis Sepsis Peripheral Pulse Exam: Normal Body Front and Back (Adult) 1) left sided weakness Last 24 Hrs of Labs/Klaus: Laboratory Tests 07/19/16 1746: Troponin I < 0.01 07/19/16 1208: Anion Gap 11, Estimated GFR 59 L, BUN/Creatinine Ratio 22.2, Glucose 145 H, Lactic Acid 0.9, Calcium 8.8, Magnesium 1.9, Total Bilirubin 0.8, AST 36, ALT 51 , Alkaline Phosphatase 194 H, Troponin I < 0.01, Total Protein 5.2 L, Albumin 2.7 L, Globulin 2.5, Albumin/Globulin Ratio 1.1, PT 13.1 H, INR 1.25 H, CBC w Diff NO MAN DIFF REQ, RBC 2.76 L, MCV 87.9, MCH 28.8, RDW 15.0 H, MPV 10.4, Gran % 62.8, Lymphocytes % 25.0, Monocytes % 8.8, Eosinophils % 3.1, Basophils % 0.3, Absolute Granulocytes 3.8, Absolute Lymphocytes 1.5, Absolute Monocytes 0.5 , Absolute Eosinophils 0.2, Absolute Basophils 0, PUBS MCHC 32.8 L Diagnostic Data EKG Results NSR, bradycardia CXR Results Mild vascular congestion. Mild pulmonary edema or community-acquired/viral pneumonia in the appropriate clinical setting. Assessment/Plan Assessment: She is an older lady with a past history of CVA, atrial fibrillation, uncontrolled hypertension, he is being evaluated for an unresponsive episode likely due to hypoglycemia. At the time of admission, vitals-temperature 97.0, pulse rate 65, respiratory rate 20, blood pressure 135/62, 97% on room air. Lab findings indicated WBC 6.0 , hemoglobin 8.0 (baseline 9.3 on 06/27/2016), platelets 209, normal electrolytes sodium 139, potassium 3.4, bicarbonate 21, BUN 20, serum creatinine 0.9. Normal AST, ALT. Alkaline phosphatase 194 (slightly elevated), albumin 2.7 (low-likely from nutrition). Urinalysis pending. Chest x-ray revealed mild vascular congestion. No signs of any infiltrate or consolidation was found. Differential diagnosis: 1. Hypoglycemic episode 2. Syncope- likely cardiac Below is the problem list and plan: #1 unresponsiveness-monitor closely on telemetry. Likely because of hypoglycemic episode. Patient was found to be on 20 units of long-acting insulin, and insulin sliding scale as per home medication list. Discontinue long-acting insulin, and continue short-acting till the proper dosage could be calculated. Check HbA1c. Cardiac cause cannot be ruled out completely. Neuro checks, swallow evaluation to be done. Abnormal CT scan findings s/o air in the cavernous sinus. Discussed about the significance of lea in the venous systema nd possible complications w/ Dr. Mckinney(neurosurgery). Recheck CT scan head w/o contrast in the am to ascertain the resolution. #2 atrial fibrillation-currently in normal sinus rhythm. Found to bradycardic. Check thyroid function test. Monitor the patient closely. Continue anticoagulation at this time. Hold beta blockers. Continue alternate medications for blood pressure control such as hydralazine and losartan. Dr. Anthony advising. #3 hypertension-continue antihypertensives, except labetalol. Monitor closely. If the patient becomes hypertensive, may require evaluation of worsening renal artery stenosis. #4 history of CHF-diastolic dysfunction- check echocardiogram. Patient currently on ARB #5 anemia-hemoglobin 8.0. No history of melena. Check stool guaiac, and iron studies. As Ranked By This Provider Problem List: 1. CHF (congestive heart failure) 2. Sinus bradycardia Core Measures/Miscellaneous Acute Coronary Syndrome ACS Diagnosis: No Cerebrovascular Accident CVA/TIA Diagnosis: No Congestive Heart Failure CHF Diagnosis: No Venous Thromboembolism VTE Risk Factors: Acute medical illness, Age > 40 No [facility] VTE prophylaxis d/t: No contraindications No VTE Pharm Prophylaxis d/t: No contraindications VTE Diagnosis: No VTE Type: NONE VTE Confirmed by (Test): NONE Severe Sepsis Severe Sepsis Present: No Septic Shock Septic Shock Present: No Miscellaneous Documentation Attending Case Discussed With: MANI MONIQUE MD Primary Care Physician: RAMBO SNIDER MD Patient sees these Specialists none Level of Patient Care: Telemetry ENID MAURICIO MD 07/19/16 1528: General Information and HPI Allergies/Medications Home Med list Apixaban (Eliquis) 2.5 MG TABLET 0.5 TAB PO BID BLOOD THINNER (Reported) Aspirin (Lo-Dose Aspirin EC) 81 MG TABLET.DR 1 TAB PO MoTuFr HEART/BLOOD ( Reported) Atorvastatin Calcium 80 MG TABLET 1 TAB PO 1700 HLD (Reported) Chlorhexidine Gluconate (Periogard) 0.12 % MOUTHWASH 15 ML PO MoWeFr GUMS ( Reported) Ferrous Sulfate (IRON) 325 MG (65 MG IRON) TABLET 1 TAB PO DAILY SUPPLEMENT ( Reported) Gabapentin 100 MG CAPSULE 2 CAP PO BID NEUROPATHIC PAIN (Reported) Hydralazine HCl 50 MG TABLET 1 TAB PO BID HEART/BP (Reported) Insulin Aspart, Recombinant (Novolog Flexpen) 100 UNIT/ML INSULN.PEN DM ( Reported) Insulin Detemir (Levemir Flextouch) 100 UNIT/ML (3 ML) INSULN.PEN 20 UNITS SC DAILY DM (Reported) Labetalol HCl 200 MG TABLET 1 TAB PO BID HEART/BP (Reported) Lansoprazole (Prevacid) 30 MG TAB.RAP.DR 1 TAB PO DAILY GI (Reported) Losartan Potassium 50 MG TABLET 1 TAB PO BID HEART/BP (Reported) Multivitamin (Multi-Day Vitamins) 1 EACH TABLET 1 TAB PO DAILY SUPPLEMENT ( Reported) Tamsulosin HCl 0.4 MG CAP.ER.24H 1 CAP PO AT BEDTIME (Reported) Resident Review Statement Resident Statement: examined this patient, discussed with graphics intern, agreed with graphics intern, discussed with family, reviewed EMR data (avail), reviewed images, amended to note Other Findings: This is 85-year-old Hungarian female with past medical history of hypertension, hyperlipidemia, renal artery stenosis, insulin-dependent diabetes, paroxysmal A. fib on Eliquis, who had stroke in December 2015 with residual left-sided paralysis S/P PEG tube placement who completed rehabilitation and was recently evaluated in ER a week ago for poor by mouth intake and declining mental status found to have significant fecal impaction require manual disimpaction and was discharged on bowel regimen, who was brought in by family for EMS after patient found unresponsive, diaphoretic. Family was at bedside who provided all the information. Daughter is POA who was at bedside. As per the daughter and patient's soaker meat patient has been declining for past 2 weeks and hasn't been eating much and noted more lethargic. She also has persistent diarrhea. This morning she was lying in bed and taking her nap when her soaker meat noted her being diaphoretic with significant sweating facial flushing, and then she tried to wake her up she noted unresponsive even to painful stimuli. EMS was called and on arrival her blood sugar noted 45 and given 1 amp of dextrose and fluid with significant improvement in mental status. Patient was brought in to ER, and she was found bradycardic up to 40s, and on electronic device monitor there was an event which thought to be torsade (although on detailed review of that event looks like artifact). Patient has significant left-sided weakness. As per the family patient has been eating by mouth and PEG tube was recently used just for medication. Patient also reports mild epigastric/substernal chest pain but denies any shortness of breath, nausea, vomiting, fever, chills, cough. Her vitals on admission were T 97, HR 65, RR 20, BP 135/62, O2 sat 97% on 2 L nasal cannula On physical exam patient is alert oriented 2, able to respond to all the questions appropriately, HEENT PERRLA EOMI, neck supple, no JVD, heart S1-S2 with mild systolic murmur, lungs clear on auscultation, abdomen soft nontender nondistended noted PEG tube in placement without surrounding erythema, no peripheral edema, noted left upper and lower extremity PARESIS, able to move right upper extremity, speech clear. Chest x-ray noted with mild vascular congestion with mild pulmonary edema. Assessment and plan: Patient likely developed diaphoresis in setting of hypoglycemia as patient hasn't been eating appropriately and has been getting usual daily insulin. Her bradycardia could be also contributing to her symptoms but as per the family patient had persistent heart rate in 60s at home. On telemetry bradycardia looks like sinus bradycardia with first-degree AV block. 1. Syncope Likely related with hypoglycemia but cardiac etiology especially high degree AV block needs to be ruled out Admit to telemetry. Monitor for any high degree AV block Cardiology consult Hold labetalol Decrease insulin regimen Monitor blood sugar closely 2. Chest pain Due to patient's history of hyperlipidemia and stroke, patient has high risk factor and underlying ACS needs to be ruled out. First set of troponin noted negative - Monitor serial troponin and EKG - alarm security or surveillance monitor - Continue aspirin 3. Hypertension - Continue home dose losartan and hydralazine - Hold labetalol due to bradycardia 4. Insulin-dependent diabetes/ hypoglycemia in setting of poor by mouth intake - Patient is nothing by mouth due to aspiration precaution - Start Novolin sliding scale npo - Start Levemir 10 units (half dose of home requirement of 20 units) due to concern of hypoglycemia - Monitor fingersticks - If needed consider endocrinology consult 5. History of TIA - Continue aspirin and statin 6. Anemia - Check iron study - Stool guaiac - Monitor H&H 7 Paroxysmal A. fib Currently in normal sinus rhythm - Continue Eliquis - Rate controlled, monitor on telemetry 8. DVT prophylaxis On Eliquis 9. Full code MANI MONIQUE MD 07/20/16 1933: Attending MD Review Statement Attending Statement Attending MD Statement: examined this patient, discuss w/resident/PA/GLASS FITTER, agreed w/resident/PA/GLASS FITTER, reviewed EMR data (avail) Attending Assessment/Plan: 85F PMH HTN, paroxysmal atrial flutter, renal artery stenosis, history of CVA admitted for altered mental status, bradycardia, hypoglycemia, and hypertensive urgency. Family noticed patient became confused and then unresponsive. Fingerstick checked by EMS was 40. Patient was diaphoretic and flushed at that time. Improved with D50 infusion. Bradycardic 40-60 on admission, no evidence of arrythmia. 1. Symptomatic bradycardia 2. Hypoglycemia 3. Hypertensive urgency 4. Renal artery stenosis 5. Paroxysmal atrial flutter Plan - Admit to telemetry - Serial enzyme/EKG - Cardiology consult - Sliding scale insulin - Monitor fingersticks - Hold b-rajiv for now - Increase Hydralazine dose per cardiology - Continue home medications - Continue Eliquis
--- NOTE | 2016-07-19 15:00 | NUR ---
PT MEDICATED PER EMAR WITH POTASSIUM AND MAG
--- NOTE | 2016-07-19 15:21 | NUR ---
SPOKE WITH TRISH FROM LAB, UA WILL BE RUN SINCE URINE TRIO SENT TO LAB PREVIOUSLY.
--- NOTE | 2016-07-19 15:23 | PN- Student ---
Subjective Subjective: CC: AMS, hypoglycemia, difficultly breathing, abd pain Source: medical record, family members, pt unable to give clear history HPI: Pt is an 85yo female with complicated PMH significant for persistent afib on Eliquis, HTN, insulin dependent diabetes, and L-side paralysis s/p CVA (2015) BIBA from home after an episode of AMS, labored breathing, diaphoresis, and hypoglycemia. Pt was seen in the ED with , granddaughter, and cousin at the bedside. Pt remained asleep for much of the encounter, and history was obtained from the family. Pt has been cared for at home by family and home services since CVA. Per family, pt has been in her usual state of health until they noticed a decline in the last two weeks. Pt has been less responsive, decreased PO intake, and sometimes refuses to take medications requiring them to use the PEG tube which was placed in December 2015. Pt was seen in the ED at Friday (07/14/16), evaluated for AMS, fecal impaction, and sent home with Anil. Today, family reports she was alert and responsive this morning, and ate 1.5 eggs before taking a nap. She was asleep for an hour when at 11am her cousin heard her labored breathing and found her asleep, sweating all over her body, and having difficulty breathing. EMS responded to the home and reported blood glucose 41, agonal breathing, and unresponsiveness. D50 and IV fluids administered in the field with good response. Family reports pt's fasting glucose was 94 this morning. Pt endorses chest pain and abdominal pain. ECG in the ED significant for afib, new onset bradycardia, and posssible episode of VT thought most likely to be artifact. Per family, no OP Cardiology, and pt has not seen PCP since before CVA. Pt admitted to telemetry for monitoring and further assessment. When seen again in the ED, pt complained of abdominal pain for the past couple of months. States pain is constant, "sometimes better, sometimes worse." Nothing makes it better. Taking "all the pills" makes it worse. H/H trending down from December 2015. Pt denies colonoscopy. Allergies: NKDA HOME MEDICATIONS: Apixaban (Eliquis) 2.5 MG TABLET 0.5 TAB PO BID BLOOD THINNER (Reported) Aspirin (Lo-Dose Aspirin EC) 81 MG TABLET.DR 1 TAB PO MoTuFr HEART/BLOOD ( Reported) Atorvastatin Calcium 80 MG TABLET 1 TAB PO DAILY CHOLESTEROL (Reported) Chlorhexidine Gluconate (Periogard) 0.12 % MOUTHWASH 15 ML PO MoWeFr GUMS ( Reported) Ferrous Sulfate (IRON) 325 MG (65 MG IRON) TABLET 1 TAB PO DAILY SUPPLEMENT ( Reported) Gabapentin 100 MG CAPSULE 2 CAP PO BID UNKNOWN (Reported) Hydralazine HCl 50 MG TABLET 1 TAB PO BID HEART/BP (Reported) Insulin Aspart, Recombinant (Novolog Flexpen) 100 UNIT/ML INSULN.PEN DM ( Reported) Insulin Detemir (Levemir Flextouch) 100 UNIT/ML (3 ML) INSULN.PEN 20 UNITS SC DAILY DM (Reported) Labetalol HCl 200 MG TABLET 1 TAB PO BID HEART/BP (Reported) Lansoprazole (Prevacid) 30 MG TAB.RAP.DR 1 TAB PO DAILY GI (Reported) Losartan Potassium 50 MG TABLET 1 TAB PO BID HEART/BP (Reported) Lubiprostone (Amitiza) 8 MCG CAPSULE 1 CAP PO BID GI (Reported) Magnesium Oxide (Magnesium) 250 MG TABLET 1 TAB PO BID SUPPLEMENT (Reported) Multivitamin (Multi-Day Vitamins) 1 EACH TABLET 1 TAB PO DAILY SUPPLEMENT ( Reported) Tamsulosin HCl 0.4 MG CAP.ER.24H 1 CAP PO DAILY (Reported) ED Medications Sig/Renee Start time Last Medication Dose Stop Time Status Admin Ferrous Sulfate 325 MG DAILY 07/20 1000 AC (Feosol) Multivitamins 1 TAB DAILY 07/20 1000 AC Therapeutic (Theragran-M Vitamins Tabs) Apixaban 1.25 MG BID 07/19 2199 AC (Eliquis) Gabapentin 200 MG BID 07/19 2199 AC (Neurontin) Hydralazine HCl 50 MG BID 07/19 2199 AC (Apresoline) Insulin Detemir 10 UNITS AT BEDTIME 07/19 2199 AC (Levemir) Losartan Potassium 50 MG BID 07/19 2199 AC (Cozaar) Tamsulosin HCl 0.4 MG AT BEDTIME 07/19 220 AC (Flomax) Insulin Human Regular 0 Q6 05 1800 AC (NovoLIN R) Atorvastatin Calcium 80 MG 1700 07/19 1700 AC (Lipitor) Aspirin Buffered 81 MG MoTuFr 07/19 1530 UNVr (Ecotrin) Chlorhexidine 15 ML MoWeFr 07/19 1530 AC Gluconate (Peridex 0.12% Oral Rinse) Dextrose/Sodium 1,000 ML SEE RATE 07/19 1515 AC Chloride (D5W-1/2 Normal Saline 1000ML) Amiodarone HCl/ 150 MG ONCE ONE 07/19 1330 CAN Dextrose 07/19 1339 (Nexterone) N/A 1 UNIT (No Carrier) Magnesium Sulfate 1 GM ONCE ONE 07/19 1330 AC 07/19 (Mag Sulfate in D5) 07/19 1729 1459 Dextrose/Water 100 ML (D5W) Medical History Neurological: CVA (12/2015) EENT: cataracts (no surgery), epistaxis Cardiovascular: AFIB, hypertension, hyperlipidemia, varicose veins Respiratory: pulmonary embolism, pulmonary edema Gastrointestinal: ACID REFLUX Hepatic: NONE Renal: RENAL ARTERY STENOSIS Musculoskeletal: chronic back pain, disk herniation, osteoarthritis, Back surgery Psychiatric: NONE Endocrine: DM Blood Disorders: NONE Cancer(s): NONE 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 Services at Home cousin testboard operator, senior medical director, visiting nurse, PT in home What is your primary language Belarusian, ESL Family History Family History, If Any: BROTHER (unknown). MOTHER ( unknown medical hx). . ROS: not able to obtain from patient Objective Objective: Physical Exam: Vital Signs Date Time Temp Pulse Resp B/P B/P Pulse O2 O2 Flow FiO2 Mean Ox Delivery Rate 07/19 1538 97.7 64 15 167/71 98 Nasal 2.0L Cannula 07/19 1400 96.0 59 16 157/67 99 Nasal 2.0L Cannula 07/19 1300 98 Nasal 2.0L Cannula 07/19 1204 97.0 65 20 135/62 97 Room Air Gen: elderly female resting in bed CV: S1S2, RRR, no murmur appreciated Lungs: exam limited to anterior lung guzman, CTABL Abd: ND, +bowel sounds, pt states tender to palpation but incongruent with exam Skin: warm, dry, well-perfused Neuro: AAO Psych: tearful Ext: no peripheral edema Results Results: Laboratory Tests 07/19/16 1208: Anion Gap 11, Estimated GFR 59 L, BUN/Creatinine Ratio 22.2, Glucose 145 H, Lactic Acid 0.9, Calcium 8.8, Magnesium 1.9, Total Bilirubin 0.8, AST 36, ALT 51 , Alkaline Phosphatase 194 H, Troponin I < 0.01, Total Protein 5.2 L, Albumin 2.7 L, Globulin 2.5, Albumin/Globulin Ratio 1.1, PT 13.1 H, INR 1.25 H, CBC w Diff NO MAN DIFF REQ, RBC 2.76 L, MCV 87.9, MCH 28.8, RDW 15.0 H, MPV 10.4, Gran % 62.8, Lymphocytes % 25.0, Monocytes % 8.8, Eosinophils % 3.1, Basophils % 0.3, Absolute Granulocytes 3.8, Absolute Lymphocytes 1.5, Absolute Monocytes 0.5 , Absolute Eosinophils 0.2, Absolute Basophils 0, PUBS MCHC 32.8 L DIAGNOSTIC IMAGING EXAM TYPE: RAD - XRY-PORTABLE CHEST XRAY FINDINGS: Mild cardiomegaly. Central pulmonary vascular congestion. Hazy prominence of the interstitial markings slightly increased over the interval suspicious for mild interstitial edema. Differential possibility includes viral type pneumonia in the appropriate clinical setting. No gross pleural effusion. IMPRESSION: Mild vascular congestion. Mild pulmonary edema or community-acquired/viral pneumonia in the appropriate clinical setting. Assessment/Plan Assessment: Pt is an 85yo female with complicated PMH significant for persistent afib on Eliquis, HTN, insulin dependent diabetes, and L-side paralysis s/p CVA (12/2015) BIBA from home after an episode of AMS, labored breathing, diaphoresis, and hypoglycemia. In the field, her blood glucose was 41. D50 and IV fluids administered in the field. Blood glucose 167 on arrival to ED. Pt's episode of hypoglycemia likely due to current insulin regimen in the setting of decreased PO intake. Per family, she has not seen her PCP since before her CVA. She does see Dr. Valenzuela for DM management. It is not clear how often her diabetes regimen is being adjusted. Per the family, she is taking detemir, a long acting insulin when her blood glucose rises to 160, but how often it is administered is also not clear. In the ED, pt was found to have afib, sinus bradycardia on ECG with epidode on tracing suggestive of possible VT, but likely artifact due to tremor. She was also hypertensive to 167/71 in ED. In the ED, pt was treated with KCl, Mag sulfate, and dextrose, and iron. Pt also has low Hg/Hct on this admission which has been steadily decreasing since her IP stay for CVA in December. Pt admitted to telemetry for monitoring of afib, sinus bradycardia, blood sugars, HTN, and further evaluation. Plan: Endo: -followed OP by Dr. Valenzuela -contact Dr. Valenzuela for IP consultation -monitor blood sugars -adjust insulin regimen Cardiac/GI: -Cardiology consultation -Monitory on telemetry for afib, new onset bradycardia, possible VT, HTN -Consider pacemaker -continue medications including Eliquis and BB -continue on iron -monitor H/H -stool guaiac -consider sigmoidoscopy f/u to CT imaging 07/14/16 Other considerations: -Diet as tolerated - encourage PO intake -monitor for swallowing issues -bowel regimen for chronic constipation -continue home medications -PCP: Kim Will MD
--- NOTE | 2016-07-19 15:38 | Admission Certification ---
Admission Certification Certification Statement - As attending physician, I certify that at the time of - admission, based on clinical presentation, severity of - symptoms, need for further diagnostic testing and - therapeutic interventions, and risk of adverse outcomes - without in-hospital treatment, in my clinical assessment, - this patient requires an acute hospital stay for a minimum - of two nights or longer. I have also considered psychsocial - factors such as support system, advanced age, financial - issues, cognitive issues, and failed out-patient treatments, - past re-admission history, safety of patient, and lack of - compliance as applicable. Specific rationale supporting this admission is: Altered mental status with bradycardia and hypoglycemia
--- NOTE | 2016-07-19 15:49 | NUR ---
PT ATTEMPTED TO VOID ON BEDPAN BUT WAS UNSUCCESSFUL. PT CHANGED INTO HOSPITAL GOWN.
--- NOTE | 2016-07-19 16:00 | NUR ---
PT'S FAMILY REPORTS SHE "SOMETIMES EATS THROUGH HER MOUTH BUT THE LAST FOUR-FIVE DAYS SHE'S BEEN USING THE G-TUBE."
--- NOTE | 2016-07-19 16:06 | NUR ---
SPOKE WITH PHARMACY ABOUT PO MEDS BEING CHANGED TO PEG TUBE
--- NOTE | 2016-07-19 16:24 | NUR ---
[facility] AT BEDSIDE FOR MICHAEL
--- NOTE | 2016-07-19 16:39 | NUR ---
AWAITING [facility] TO COLLABERATE WITH PROVIDERS IN TERMS OF PT TAKING MEDS PO OR THROUGH THE PEG TUBE.
--- NOTE | 2016-07-19 16:43 | NUR ---
SPOKE WITH PRATIBHA FROM [facility] WHO REPORTS PATIENT CAN HAVE PUREE AND HONEY FOR COMFORT WHEN PT WANTS IT, AND MEDS CAN BE TAKEN WITH APPLESAUCE LONG THEY ARE CRUSHED. BOTH THIS RN AND PRATIBHA FROM [facility] PAGED #[phone] AND #[phone] WITHOUT RETURN OF PHONE CALLS.
--- NOTE | 2016-07-19 16:49 | NUR ---
[facility]NA PAGED AT #[phone]
--- NOTE | 2016-07-19 16:53 | NUR ---
DR. BOLAND AT BEDSIDE FOR EVAL. POTASSIUM IV COMPLETED AND DISCONNECTED.
--- NOTE | 2016-07-19 16:57 | NUR ---
PHARM CALLED FOR MEDS.
--- NOTE | 2016-07-19 17:18 | NUR ---
[facility] ASSIGNMENT [id number]
--- NOTE | 2016-07-19 17:43 | NUR ---
PT MEDICATED WITH MEDS PER EMAR. TOLERATED WELL CRUSHED UP IN APPLESAUCE. MST AT BEDSIDE FOR REPEAT EKG AND TROP.
--- NOTE | 2016-07-19 17:52 | NUR ---
PT MEDICATED WITH INSULIN PER EMAR.
--- NOTE | 2016-07-19 18:21 | NUR ---
NURSE TO CALL BACK FOR REPORT.
--- NOTE | 2016-07-19 18:42 | NUR ---
REPORT GIVEN TO MIAH SALAZAR.
--- NOTE | 2016-07-19 19:06 | Cons- Cardiology ---
General Information and HPI Consulting Request Date of Consult: 07/19/16 Requested By: MANI MONIQUE MD History of Present Illness: Elaina is an 85 year old female with a history of severe and poorly controlled hypertension, dyslipidemia and renal artery stenosis. She also carries a history of paroxysmal atrial flutter. This past December Elaina suffered a stroke with left sided paralysis. She had some trouble swallowing and therefore has G-tube although lately her swallowing has improved. Most recently she was evaluated in the ER for a fecal impaction. Elaina came to the ER today after an episode of unresponsivement, diaphoresis in the setting of hypoglycemia with a blood glucose of 41 and bradycardia with heart rate in the 40's. Her family was also concerned because the patient did not appear to be breathing and was short of breath. There was a tracing obtained in the ER that was suspicious for VT although on further review it appeared to be artifact. The patient is also anemic. This patient cannot offer a cogent history at this time but she denies chest discomfort, shortness of breath , lightheadedness or palpitations. To review the patient's past history, this patient had a previous episode of hypertensive encephalopathy. Her medications were subsequently adjusted and she was discharged in stable condition. At that time, we strongly recommended more aggressive management of the patient's renal artery stenosis which was noted on her MRA. It should be recalled that in August of 2009, the patient was found to have newly discovered atrial fibrillation with an increased heart rate. At that time, she was anticoagulated, but thereafter, was lost to followup. This patient has undergone a MRA which showed severe focal stenosis of the right renal artery. It was strongly recommended she followup with a renal angiogram. However, the patient opted not to have this procedure, and apparently saw a physician in [place], who said it was not necessary. The patient has remained hypertensive. She did get a followup ultrasound; however, the ultrasound stated the proximal and mid-renal arteries were not visualized bilaterally, although there was normal flow in the intrarenal arteries. It was recommended that a MRA or CT angiogram of the renal arteries be obtained, which was not pursued. This patient had prior complaints of a moderate chest pressure radiating up to the base of her neck and shoulder. It was somewhat typical and exacerbated by movement of her arm. There was no exacerbation with eating or breathing. There was no associated nausea, vomiting, diaphoresis, palpitations or shortness of breath, although she did have some dizziness. In consideration of these symptoms, I did recommend, in the past, cardiac catheterization for an unequivocal diagnosis although this was not pursued by the patient. On previous admissions, the patient was noted to have bilateral pleural effusions and pulmonary vascular congestion consistent with congestive heart failure, which I thought was related to her severe hypertension. An echocardiogram showed mild to moderate left ventricular hypertrophy with a normal EF greater than 65% with impaired LV relaxation. The left atrium was mild to moderately dilated. In terms of cardiac valves, there was some thickening of the mitral valve with mild mitral regurgitation. The tricuspid valve demonstrates mild regurgitation. The aortic valve has some thickening and very mildly aortic stenosis and trace aortic insufficiency. Allergies/Medications Allergies: Coded Allergies: NO KNOWN ALLERGIES (05/29/15) Home Med List: Apixaban (Eliquis) 2.5 MG TABLET 0.5 TAB PO BID BLOOD THINNER (Reported) Aspirin (Lo-Dose Aspirin EC) 81 MG TABLET.DR 1 TAB PO MoTuFr HEART/BLOOD ( Reported) Atorvastatin Calcium 80 MG TABLET 1 TAB PO 1700 HLD (Reported) Chlorhexidine Gluconate (Periogard) 0.12 % MOUTHWASH 15 ML PO MoWeFr GUMS ( Reported) Ferrous Sulfate (IRON) 325 MG (65 MG IRON) TABLET 1 TAB PO DAILY SUPPLEMENT ( Reported) Gabapentin 100 MG CAPSULE 2 CAP PO BID NEUROPATHIC PAIN (Reported) Hydralazine HCl 50 MG TABLET 1 TAB PO BID HEART/BP (Reported) Insulin Aspart, Recombinant (Novolog Flexpen) 100 UNIT/ML INSULN.PEN DM ( Reported) Insulin Detemir (Levemir Flextouch) 100 UNIT/ML (3 ML) INSULN.PEN 20 UNITS SC DAILY DM (Reported) Labetalol HCl 200 MG TABLET 1 TAB PO BID HEART/BP (Reported) Lansoprazole (Prevacid) 30 MG TAB.RAP.DR 1 TAB PO DAILY GI (Reported) Losartan Potassium 50 MG TABLET 1 TAB PO BID HEART/BP (Reported) Multivitamin (Multi-Day Vitamins) 1 EACH TABLET 1 TAB PO DAILY SUPPLEMENT ( Reported) Tamsulosin HCl 0.4 MG CAP.ER.24H 1 CAP PO AT BEDTIME (Reported) Past History Travel History Traveled to [place] past 21 day No Medical History Neurological: CVA EENT: cataracts, epistaxis Cardiovascular: AFIB, hypertension, hyperlipidemia, varicose veins Respiratory: pulmonary embolism, pulmonary edema Gastrointestinal: ACID REFLUX Hepatic: NONE Renal: RENAL ARTERY STENOSIS Musculoskeletal: chronic back pain, disk herniation, osteoarthritis, Back surgery Psychiatric: NONE Endocrine: DM Blood Disorders: NONE Cancer(s): NONE 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 MOTHER ( unknown medical hx). . Psychosocial History Who Do You Live With? child Services at Home: None Primary Language: Egyptian Functional Ability ADLs Needs Assist: dressing, eating, toileting, bathing. Ambulation: cane, walker IADLs Needs Assist: shopping, housework, finances, food prep, telephone, transportation, medication admin. Exam & Diagnostic Data Vital Signs and I&O Vital Signs Date Time Temp Pulse Resp B/P B/P Pulse O2 O2 Flow FiO2 Mean Ox Delivery Rate 07/19 1744 98.4 56 15 164/69 97 Nasal 2.0L Cannula 07/19 1538 97.7 64 15 167/71 98 Nasal 2.0L Cannula 07/19 1400 96.0 59 16 157/67 99 Nasal 2.0L Cannula 07/19 1300 98 Nasal 2.0L Cannula 07/19 1204 97.0 65 20 135/62 97 Room Air Intake & Output 07/19 1600 07/19 0800 07/19 0000 07/18 1600 07/18 0800 07/18 0000 Intake Total Output Total Balance Patient 180 lb Weight Weight Estimated Measurement Method Physical Exam: General: WD/ obese female in NAD; awake and confused HEENT: NC/AT, PERRL, EOMI, clear oropharynx Neck: no JVD, no carotid bruit Heart: RRR with 2/6 systolic murmur Lungs: clear bilaterally Abdomen: soft, obese, NT, +ve bowel sounds Extremities: no edema Neuro: no movement on left side Assessment/Plan Assessment/Plan * This patient has some tremors that resulted in artifact that was suggestive of VT. This is not true ventricular tachycardia but she should be monitored on telemetry. The patient has also been bradycardic. As such, a TSH and free T4 should be obtained. I would restart Labetolol tomorrow at 100mg BID and continue to monitor for symptomatic bradycardia. Increase Hydralazine to 75mg BID and increase as necessary for blood pressure control. If her BP remains elevated then adding Nifedipine 30mg daily is reasonable. * Obtain an echocardiogram * Replete potassium. Consult Acknowledgment - Thank you for your consult request.
[2016-07-19 19:44] VITALS: BP 142/60
[2016-07-20 00:20] VITALS: BP 140/58
[2016-07-20 07:56] VITALS: BP 128/60
[2016-07-20 08:59] LABS: ABSOLUTE BASOPHIL COUNT 0 /CUMM (0.0-0.2); ABSOLUTE EOSINOPHIL COUNT 0.3 /CUMM (0.0-0.7); ABSOLUTE GRANULOCYTE CT 3.6 /CUMM (1.4-6.5); ABSOLUTE LYMPH COUNT 2.3 /CUMM (1.2-3.4); ABSOLUTE MONOCYTE COUNT 0.6 /CUMM (0.10-0.60); BASOPHIL % 0.6 % (0.0-2.0); GRANULOCYTE % 52.7 % (42.2-75.2); HEMATOCRIT 24.3 % (37-47); MEAN CORPUSCULAR HGB 29.5 PG (27.0-31.0); MEAN CORPUSCULAR HGB CONC 33.6 G/DL (33.0-37.0); MEAN CORPUSCULAR VOLUME 87.8 FL (81.0-99.0); MEAN PLATELET VOLUME 10.7 FL (7.4-10.4); PLATELET COUNT 219 /CUMM (130-400); RBC DISTRIBUTION WIDTH 15.5 % (11.5-14.5); RED BLOOD CELL CT 2.77 /CUMM (4.20-5.40); WHITE BLOOD CELL COUNT 6.9 /CUMM (4.8-10.8)
--- NOTE | 2016-07-20 09:00 | PN- Housestaff ---
See Addendum Subjective Follow-up For: syncope 2/2 Bradycardia ( high degree AV block) and or arrhythmia (possible VT) -Hx of HTN Complaints: disoriated X3 No meaningful communication ROS is limited Tele-Events Since Last Visit: Normal sinus rhythm first-degree AV block 66-79 Subjective: Patient was visited and examined this morning. She is disoriented and confused to person place and time. My interview with the patient considering her mentation is very limited. Review of Systems Constitutional: Reports: see HPI. EENTM: Reports: see HPI. Cardiovascular: Reports: see HPI. Respiratory: Reports: see HPI. Gastrointestinal: Reports: see HPI. Objective Last 24 Hrs of Vital Signs/I&O Vital Signs Date Time Temp Pulse Resp B/P B/P Pulse O2 O2 Flow FiO2 Mean Ox Delivery Rate 07/20 0756 98.6 81 16 128/60 95 Room Air 07/20 0020 98.8 85 20 140/58 95 Room Air 07/20 0000 Room Air 07/19 2135 66 152/66 07/19 2135 66 152/60 07/19 2135 66 152/66 05 1944 98.6 68 20 142/60 99 Nasal 2.0L Cannula 07/19 1744 98.4 56 15 164/69 97 Nasal 2.0L Cannula 07/19 1538 97.7 64 15 167/71 98 Nasal 2.0L Cannula 07/19 1400 96.0 59 16 157/67 99 Nasal 2.0L Cannula 07/19 1300 98 Nasal 2.0L Cannula 07/19 1204 97.0 65 20 135/62 97 Room Air Intake & Output 07/20 1600 06 0800 / 0000 Intake Total 0 170 Output Total Balance 0 170 Intake, IV 0 20 Intake, Oral 0 150 Number 0 0 Bowel Movements Patient 165 lb 165 lb Weight Weight Yesica Lift Measurement Method Physical Exam General Appearance: Disoriented and confused X3, arousible with shaking and painful stimuli Skin: No Rashes, No Breakdown, No Significant Lesion HEENT: Atraumatic, PERRLA, EOMI, Mucous Membr. moist/pink Neck: No JVD, No thryomegaly, +2 Carotid Pulse wo Bruit Cardiovascular: Normal S1, Normal S2, No Murmurs Lungs: Clear to Auscultation, Normal Air Movement Abdomen: Soft, No Tenderness Extremities: No Edema Current Medications: Current Medications Sig/Renee Start time Last Medication Dose Route Stop Time Status Admin Amiodarone HCl/ 150 MG ONCE ONE 07/19 1330 CAN Dextrose IV 07/19 1339 N/A 1 UNIT Apixaban 1.25 MG BID 07/19 2200 AC 07/19 PO 2127 Aspirin 0 .STK-MED ONE 07/19 1702 DC PO Aspirin 81 MG ONCE ONE 07/19 1700 DC 07/19 PO 07/19 1701 1742 Aspirin Buffered 81 MG MoTuFr 07/19 1530 DC PO Atorvastatin Calcium 80 MG 1700 07/19 1700 AC 07/19 PO 1742 Chlorhexidine 15 ML MoWeFr 07/19 1530 AC 07/19 Gluconate PO 1742 Dextrose/Sodium 1,000 ML SEE RATE 07/19 1515 AC Chloride IV Ferrous Sulfate 325 MG DAILY 07/20 1000 AC PO Gabapentin 200 MG BID 07/19 2200 AC 07/19 PO 2127 Hydralazine HCl 75 MG BID 07/20 1000 AC PO Hydralazine HCl 50 MG BID 07/19 220 DC 07/19 PO 2135 Insulin Detemir 10 UNITS AT BEDTIME 07/19 2200 AC SC Insulin Detemir 5 UNITS ONCE ONE 07/19 2200 DC 07/19 SC 07/19 220 2228 Insulin Human Regular 0 Q6 07/19 1800 AC 07/20 SC 0635 Labetalol HCl 100 MG BID 07/20 1000 AC PO Losartan Potassium 50 MG BID 07/19 2200 AC 07/19 PO 2135 Magnesium Sulfate 1 GM ONCE ONE 07/19 1330 DC 07/19 Dextrose/Water 100 ML IV 07/19 1729 1459 Multivitamins 1 TAB DAILY 07/20 1000 AC Therapeutic PO Potassium Chloride 40 MEQ ONCE ONE 07/20 0600 DC 07/20 PO 07/20 0601 0635 Potassium Chloride 10 MEQ ONCE ONE 07/19 1330 DC 05 IV 07/19 1331 1459 Tamsulosin HCl 0.4 MG AT BEDTIME 07/19 2200 AC 07/19 PO 2135 Last 24 Hrs of Lab/Klaus Results Last 24 Hrs of Labs/Mics: Laboratory Tests 07/20/16 0635: Anion Gap 11, Estimated GFR 59 L, BUN/Creatinine Ratio 21.1, TSH 1.930, Free T4 1.29, CBC w Diff Pending, WBC Pending, RBC Pending, Hgb Pending, Hct Pending, MCV Pending, MCH Pending, RDW Pending, Plt Count Pending, MPV Pending, PUBS MCHC Pending 07/20/16 0100: Troponin I < 0.01 07/19/16 1746: Troponin I < 0.01 07/19/16 1228: Methadone Screen Cancelled, Barbiturate Screen Cancelled, Ur Phencyclidine Scrn Cancelled, Amphetamines Screen Cancelled, U Benzodiazepines Scrn Cancelled, Urine Cocaine Screen Cancelled, Urine Cannabis Screen Cancelled 07/19/16 1208: Anion Gap 11, Estimated GFR 59 L, BUN/Creatinine Ratio 22.2, Glucose 145 H, Lactic Acid 0.9, Calcium 8.8, Magnesium 1.9, Total Bilirubin 0.8, AST 36, ALT 51 , Alkaline Phosphatase 194 H, Troponin I < 0.01, Total Protein 5.2 L, Albumin 2.7 L, Globulin 2.5, Albumin/Globulin Ratio 1.1, PT 13.1 H, INR 1.25 H, CBC w Diff NO MAN DIFF REQ, RBC 2.76 L, MCV 87.9, MCH 28.8, RDW 15.0 H, MPV 10.4, Gran % 62.8, Lymphocytes % 25.0, Monocytes % 8.8, Eosinophils % 3.1, Basophils % 0.3, Absolute Granulocytes 3.8, Absolute Lymphocytes 1.5, Absolute Monocytes 0.5 , Absolute Eosinophils 0.2, Absolute Basophils 0, PUBS MCHC 32.8 L Assessment/Plan Assessment: 85-year-old woman with significant past medical history and multiple comorbidities was admitted a syncopal episode. CBC for today is pending Biochemistry: Potassium 3.9 the remainder of the by chemistries normal List of active problems 1. Syncope: First-degree AV block and history of chronic atrial fibrillation. Syncopal episodes may be related to beta blockers or hypoglycemia due to insulin or arrhythmia. #1 follow cardiology recommendation for syncopal question regarding possible high degree AV block or medication side effect or arrhythmia #2 follow echo results 2. Chest pain: 3 sets of troponin were negative no EKG changes suggestive of myocardial ischemia. Continue atorvastatin, continue labetalol 3. Hypertension - Continue home dose losartan and hydralazine 4. Insulin-dependent diabetes/ hypoglycemia in setting of poor by mouth intake - Patient is nothing by mouth due to aspiration precaution - Start Novolin sliding scale npo - Start Levemir 10 units (half dose of home requirement of 20 units) due to concern of 5. History of TIA - Patient is not on aspirin ??? -Continue statins 6. Anemia - Check iron study - Stool guaiac - Monitor H&H 7 Paroxysmal A. fib Currently in normal sinus rhythm - Continue Eliquis - Rate controlled, monitor on telemetry 8. DVT prophylaxis On Eliquis 9. Full code Problem List: 1. Atrial fibrillation 2. DVT prophylaxis 3. Full code status 4. Chronic lower back pain Pain Ratin Pain Location: na Pain Goal: Pain 4 or less Pain Plan: Tylenol 650 Tomorrow's Labs & Rationales: CBC and BEP DVT/Prophylaxis: mechanical, pharmacological
[2016-07-20 15:30] VITALS: BP 132/62
--- NOTE | 2016-07-20 15:53 | PN- Cardiology ---
Subjective Subjective: The patient remains mildly confused. No chest pain. No shortness of breath. No palpitations. Objective Vital Signs and I&Os Vital Signs Date Time Temp Pulse Resp B/P B/P Pulse O2 O2 Flow FiO2 Mean Ox Delivery Rate 07/20 1107 81 128/60 / 1106 81 128/60 07/20 1106 81 128/60 / 0756 98.6 81 16 128/60 95 Room Air 07/20 0020 98.8 85 20 140/58 95 Room Air 07/20 0000 Room Air 07/19 213 66 152/66 07/19 213 66 152/60 07/19 213 66 152/66 07/19 1944 98.6 68 20 142/60 99 Nasal 2.0L Cannula 07/19 174 98.4 56 15 164/69 97 Nasal 2.0L Cannula Intake & Output 07/20 1600 07/20 0800 07/20 0000 07/19 1600 07/19 0807/19 0000 Intake Total 0 170 Output Total Balance 0 170 Intake, IV 0 20 Intake, Oral 0 150 Number 0 0 Bowel Movements Patient 165 lb 165 lb 180 lb Weight Weight Yesica Lift Estimated Measurement Method Physical Exam: Gen: NAD HEENT: normal Lungs: clear to auscultation, normal resp. effort Heart: RRR, S1, S2, 2/6 systolic murmur Abdomen: Soft, nontender, no masses Extremities: No clubbing, cyanosis, or edema. Neuro: Alert and oriented x 3, cranial nerves intact Current Medications: Current Medications Sig/Renee Start time Last Medication Dose Route Stop Time Status Admin Apixaban 1.25 MG BID 07/19 2199 AC 07/20 PO 1107 Aspirin 0 .STK-MED ONE 07/19 1701 DC PO Aspirin 81 MG ONCE ONE 07/19 1699 DC 07/19 PO 07/19 1701 1742 Aspirin Buffered 81 MG MoTuFr 07/19 153 DC PO Atorvastatin Calcium 80 MG 1700 07/19 170 AC 07/19 PO 174 Chlorhexidine 15 ML MoWeFr 07/19 153 AC 07/19 Gluconate PO 1742 Dextrose/Sodium 1,000 ML SEE RATE 07/19 1515 AC Chloride IV Ferrous Sulfate 325 MG DAILY 07/20 1000 AC 07/20 PO 1106 Gabapentin 200 MG BID 07/19 220 AC 07/20 PO 1106 Hydralazine HCl 75 MG BID 07/20 1000 AC 07/20 PO 1106 Hydralazine HCl 50 MG BID 07/19 2199 DC 07/19 PO 2135 Insulin Detemir 10 UNITS AT BEDTIME 07/19 2199 AC SC Insulin Detemir 5 UNITS ONCE ONE 07/19 2199 DC 07/19 SC 07/19 220 2228 Insulin Human Regular 0 Q6 07/19 1800 AC 07/20 SC 1346 Labetalol HCl 100 MG BID 07/20 1000 AC 07/20 PO 1107 Losartan Potassium 50 MG BID 07/19 2200 AC 07/20 PO 1106 Magnesium Sulfate 1 GM ONCE ONE 07/19 1330 DC 07/19 Dextrose/Water 100 ML IV 07/19 1729 1459 Multivitamins 1 TAB DAILY 07/20 1000 AC 07/20 Therapeutic PO 1107 Potassium Chloride 40 MEQ ONCE ONE 07/20 0600 DC 07/20 PO 07/20 0601 0635 Tamsulosin HCl 0.4 MG AT BEDTIME 07/19 2199 AC 07/19 PO 2135 Results Last 48 Hrs of Labs/Mics: Laboratory Tests 07/20/16 0635: Anion Gap 11, Estimated GFR 59 L, BUN/Creatinine Ratio 21.1, TSH 1.930, Free T4 1.29, CBC w Diff NO MAN DIFF REQ, RBC 2.77 L, MCV 87.8, MCH 29.5, RDW 15.5 H, MPV 10.7 H, Gran % 52.7, Lymphocytes % 33.1, Monocytes % 8.6, Eosinophils % 5.0 , Basophils % 0.6, Absolute Granulocytes 3.6, Absolute Lymphocytes 2.3, Absolute Monocytes 0.6, Absolute Eosinophils 0.3, Absolute Basophils 0, PUBS MCHC 33.6 07/20/16 0100: Troponin I < 0.01 07/19/16 1746: Troponin I < 0.01 07/19/16 1228: Methadone Screen Cancelled, Barbiturate Screen Cancelled, Ur Phencyclidine Scrn Cancelled, Amphetamines Screen Cancelled, U Benzodiazepines Scrn Cancelled, Urine Cocaine Screen Cancelled, Urine Cannabis Screen Cancelled, Urine Color Cancelled, Urine Clarity Cancelled, Urine pH Cancelled, Ur Specific [place] Cancelled, Urine Protein Cancelled, Urine Ketones Cancelled, Urine Nitrite Cancelled, Urine Bilirubin Cancelled, Urine Urobilinogen Cancelled, Ur Leukocyte Esterase Cancelled, Ur Microscopic Cancelled, Urine Hemoglobin Cancelled, Urine Glucose Cancelled 07/19/16 1208: Anion Gap 11, Estimated GFR 59 L, BUN/Creatinine Ratio 22.2, Glucose 145 H, Lactic Acid 0.9, Calcium 8.8, Magnesium 1.9, Total Bilirubin 0.8, AST 36, ALT 51 , Alkaline Phosphatase 194 H, Troponin I < 0.01, Total Protein 5.2 L, Albumin 2.7 L, Globulin 2.5, Albumin/Globulin Ratio 1.1, PT 13.1 H, INR 1.25 H, CBC w Diff NO MAN DIFF REQ, RBC 2.76 L, MCV 87.9, MCH 28.8, RDW 15.0 H, MPV 10.4, Gran % 62.8, Lymphocytes % 25.0, Monocytes % 8.8, Eosinophils % 3.1, Basophils % 0.3, Absolute Granulocytes 3.8, Absolute Lymphocytes 1.5, Absolute Monocytes 0.5 , Absolute Eosinophils 0.2, Absolute Basophils 0, PUBS MCHC 32.8 L Assessment/Plan Assessment/Plan Assessment: 1. Hypertension 2. Paroxysmal atrial flutter 3. History of CVA 4. Syncope 5. Bradycardia, improved with decrease in the labetalol dose Plan: * Eliquis appears to be dosed incorrectly. The correct dose of Eliquis given the patient's age, weight, and renal function is 5 mg twice a day. * Continue other cardiac medications. * Monitor on telemetry. If evidence of bradycardia, then labetalol dose should be decreased further. Continue telemetry? Yes
[2016-07-21 00:52] VITALS: BP 120/54
[2016-07-21 07:59] VITALS: BP 160/78
--- NOTE | 2016-07-21 08:44 | PN- Housestaff ---
Subjective Follow-up For: 1. Syncope 2. Symptomatic bradycardia 3. Hypoglycemia 4. Hypertensive urgency 5. Renal artery stenosis 6. Paroxysmal atrial flutter Tele-Events Since Last Visit: NSR, 1st degree Av Block, HR between 64 to 72, 49 @ 4:38 am Subjective: The patient stated she feels okay but is not ready to be discharged yet. She slept well, denies chest pain, fever, SOB, N/V/D, palpitations. Her heart rate dropped to 49 at 4:38 am but she comfortably sleeping at that time and did not experience any symptoms. She had a regular nowel movement today. Review of Systems Constitutional: Reports: see HPI. Cardiovascular: Reports: no symptoms. Respiratory: Reports: no symptoms. Gastrointestinal: Reports: no symptoms. Objective Last 24 Hrs of Vital Signs/I&O Vital Signs Date Time Temp Pulse Resp B/P B/P Pulse O2 O2 Flow FiO2 Mean Ox Delivery Rate 07/21 1051 61 160/78 / 1050 61 160/78 / 1050 61 160/78 / 0759 97.7 61 14 160/78 97 Room Air / 0300 98.0 / 0052 99.6 68 20 120/54 96 Room Air 05/06 2143 72 122/68 05/06 2143 72 122/68 05/06 2142 72 122/68 05/06 1530 99.1 72 18 132/62 95 Room Air Intake & Output / 1600 05/07 0800 05/ 0000 Intake Total 340 600 Output Total Balance 340 600 Intake, IV 100 Intake, Oral 240 600 Number 1 Bowel Movements Physical Exam General Appearance: Alert, Oriented X3, Cooperative, No Acute Distress Neck: No JVD Cardiovascular: Regular Rate, Normal S1, Normal S2, No Murmurs Lungs: Clear to Auscultation, Normal Air Movement Abdomen: Normal Bowel Sounds, Soft, No Tenderness, No Hepatospenomegaly Extremities: No Edema, Normal Pulses Assessment/Plan Assessment: 85 year old woman, with a PMH of HTN, paroxysmal atrial flutter, renal artery stenosis, history of CVA admitted for altered mental status, bradycardia, hypoglycemia, and hypertensive urgency. Family noticed patient became confused and then unresponsive. Fingerstick checked by EMS was 40. Patient was diaphoretic and flushed at that time. Improved with D50 infusion. Bradycardic 40-60 on admission, no evidence of arrythmia. Assesment and Plan: 1. Symptomatic Bradycardia/Syncope: - The patient had symptomatic bradycardia leading to syncope and unresponsiveness. - No arrythmia, likely secondary to beta blockers. - The dose of labetalol has been reduced to 100 BID, will reduce further to 50 mg BID per cardiology today due to episode of cindy in 40s at night. 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 She already has visiting nurses twice a week but wanted to talk to a care co- ordinator before discharge and wanted to make sure she has care after discharge. 2. Chest pain: - 3 sets of troponin were negative no EKG changes. - Continue atorvastatin, continue labetalol but at a lower dose 3. Hypertensive Urgency: - The patient has a history of HTN. BP has been high - Will continue losartan - Increasing hydralazine to 100 mg BID per cardio 4. Insulin-dependent diabetes/ hypoglycemia in setting of poor by mouth intake - presented with hypoglycemia, now blood sugars are better controlled, [phone] - ISS - Levemir 10 at bedtime 5. Paroxysmal A. fib - Currently in normal sinus rhythm - Continue Eliquis - Labetalol 6. DVT prophylaxis On Eliquis 7. Full code Problem List: 1. Sinus bradycardia 2. Hypertensive emergency 3. PAROXYSMAL ATRIAL FIBRILLATION Pain Ratin Pain Location: None Pain Goal: Remain pain free Pain Plan: PRN Tylenol Tomorrow's Labs & Rationales: None DVT/Prophylaxis: pharmacological Consulting Request: Consulting Specialty: Cardiology Consulting Physician: Dr. Bradford Reason for Consult: Bradycardia
[2016-07-21 09:30] LABS: ABSOLUTE BASOPHIL COUNT 0 /CUMM (0.0-0.2); ABSOLUTE EOSINOPHIL COUNT 0.3 /CUMM (0.0-0.7); ABSOLUTE GRANULOCYTE CT 4.5 /CUMM (1.4-6.5); ABSOLUTE LYMPH COUNT 2.2 /CUMM (1.2-3.4); ABSOLUTE MONOCYTE COUNT 0.8 /CUMM (0.10-0.60); BASOPHIL % 0.5 % (0.0-2.0); EOSINOPHIL % 3.5 % (0-5); GRANULOCYTE % 57.5 % (42.2-75.2); MEAN CORPUSCULAR HGB 29.7 PG (27.0-31.0); MEAN CORPUSCULAR HGB CONC 33.4 G/DL (33.0-37.0); MEAN CORPUSCULAR VOLUME 88.8 FL (81.0-99.0); MEAN PLATELET VOLUME 10.4 FL (7.4-10.4); PLATELET COUNT 229 /CUMM (130-400); RED BLOOD CELL CT 2.93 /CUMM (4.20-5.40); WHITE BLOOD CELL COUNT 7.8 /CUMM (4.8-10.8)
--- NOTE | 2016-07-21 12:14 | PN- Cardiology ---
Subjective Subjective: The patient is awake and comfortable. Telemetry monitoring reveals sinus bradycardia, with heart rate briefly dropping into the high 40s. No chest pain. No palpitations. No shortness of breath. Objective Vital Signs and I&Os Vital Signs Date Time Temp Pulse Resp B/P B/P Pulse O2 O2 Flow FiO2 Mean Ox Delivery Rate 07/21 1051 61 160/78 05/ 1050 61 160/78 / 1050 61 160/78 / 0759 97.7 61 14 160/78 97 Room Air 07/21 0300 98.0 / 0052 99.6 68 20 120/54 96 Room Air / 2143 72 122/68 05/ 2143 72 122/68 05/ 2142 72 122/68 / 1530 99.1 72 18 132/62 95 Room Air Intake & Output 07/21 1600 07/21 0800 05/ 0000 / 1600 07/20 0800 05/ 0000 Intake Total 340 600 580 0 170 Output Total Balance 340 600 580 0 170 Intake, IV 100 100 0 20 Intake, Oral 240 600 480 0 150 Number 1 0 0 Bowel Movements Patient 165 lb 165 lb Weight Weight Yesica Lift Measurement Method Physical Exam: Gen: NAD HEENT: normal Lungs: clear to auscultation, normal resp. effort Heart: RRR, S1, S2, 2/6 systolic murmur Abdomen: Soft, nontender, no masses Extremities: No clubbing, cyanosis, or edema. Neuro: Alert and oriented x 3, cranial nerves intact Current Medications: Current Medications Sig/Renee Start time Last Medication Dose Route Stop Time Status Admin Acetaminophen 1,000 MG Q6P PRN 07/20 1915 AC 07/20 N/A 1 UNIT IV 2256 Acetaminophen 650 MG Q6 PRN 07/20 1615 AC 05/ PO 1738 Apixaban 5 MG BID 07/20 2200 AC 07/21 PO 1050 Apixaban 1.25 MG BID 07/19 2200 DC 07/20 PO 1107 Atorvastatin Calcium 80 MG 1700 07/19 1700 AC 05/ PO 1738 Chlorhexidine 15 ML MoWeFr 07/19 1530 AC 05 Gluconate PO 1742 Dextrose/Sodium 1,000 ML SEE RATE 07/19 1515 AC Chloride IV Ferrous Sulfate 325 MG DAILY 07/20 1000 AC 07/21 PO 1050 Gabapentin 200 MG BID 07/19 220 AC 07/21 PO 1050 Hydralazine HCl 75 MG BID 07/20 1000 AC 07/21 PO 1050 Insulin Aspart 2 UNITS ONCE ONE 07/21 0230 DC 07/21 SC 07/21 0231 0331 Insulin Aspart 2 UNITS ONCE ONE 07/20 2300 DC 07/20 SC 07/20 2301 2256 Insulin Aspart 0 TIDAC 07/20 1700 AC 07/20 SC 1737 Insulin Detemir 10 UNITS AT BEDTIME 07/19 220 AC 07/20 SC 2144 Insulin Human Regular 0 Q6 07/19 1800 DC 07/20 DC 1346 Labetalol HCl 100 MG BID 07/20 1000 AC 07/21 PO 1051 Losartan Potassium 50 MG BID 07/19 2199 AC 07/21 PO 1050 Multivitamins 1 TAB DAILY 07/20 1000 AC 07/21 Therapeutic PO 1051 Tamsulosin HCl 0.4 MG AT BEDTIME 07/19 2199 AC 07/20 PO 2143 Results Last 48 Hrs of Labs/Mics: Laboratory Tests 07/21/16 0810: Anion Gap 9, Estimated GFR 59 L, BUN/Creatinine Ratio 21.1, CBC w Diff NO MAN DIFF REQ, RBC 2.93 L, MCV 88.8, MCH 29.7, RDW 16.0 H, MPV 10.4, Gran % 57.5, Lymphocytes % 28.4, Monocytes % 10.1 H, Eosinophils % 3.5, Basophils % 0.5, Absolute Granulocytes 4.5, Absolute Lymphocytes 2.2, Absolute Monocytes 0.8 H, Absolute Eosinophils 0.3, Absolute Basophils 0, PUBS MCHC 33.4 07/20/16 0635: Anion Gap 11, Estimated GFR 59 L, BUN/Creatinine Ratio 21.1, TSH 1.930, Free T4 1.29, CBC w Diff NO MAN DIFF REQ, RBC 2.77 L, MCV 87.8, MCH 29.5, RDW 15.5 H, MPV 10.7 H, Gran % 52.7, Lymphocytes % 33.1, Monocytes % 8.6, Eosinophils % 5.0 , Basophils % 0.6, Absolute Granulocytes 3.6, Absolute Lymphocytes 2.3, Absolute Monocytes 0.6, Absolute Eosinophils 0.3, Absolute Basophils 0, PUBS MCHC 33.6 07/20/16 0100: Troponin I < 0.01 07/19/16 1746: Troponin I < 0.01 07/19/16 1228: Methadone Screen Cancelled, Barbiturate Screen Cancelled, Ur Phencyclidine Scrn Cancelled, Amphetamines Screen Cancelled, U Benzodiazepines Scrn Cancelled, Urine Cocaine Screen Cancelled, Urine Cannabis Screen Cancelled, Urine Color Cancelled, Urine Clarity Cancelled, Urine pH Cancelled, Ur Specific [place] Cancelled, Urine Protein Cancelled, Urine Ketones Cancelled, Urine Nitrite Cancelled, Urine Bilirubin Cancelled, Urine Urobilinogen Cancelled, Ur Leukocyte Esterase Cancelled, Ur Microscopic Cancelled, Urine Hemoglobin Cancelled, Urine Glucose Cancelled Assessment/Plan Assessment/Plan Assessment: 1. Hypertension 2. Paroxysmal atrial flutter 3. History of CVA 4. Syncope 5. Sinus bradycardia Plan: * Decrease metoprolol to 50 mrd by mouth twice a day given sinus bradycardia * Increase hydralazine to 100 mg twice a day for blood pressure control * Continue Eliquis * Okay for discharge from cardiac standpoint. * Follow up with Dr. Anthony in one week. Continue telemetry? Yes
--- NOTE | 2016-07-21 12:23 | RADIOLOGY REPORT ---
EXAMINATION: CR LEFT FOREARM. CR LEFT HUMERUS. CR RIGHT TIBIA AND FIBULA. CLINICAL INFORMATION: Pain in the left forearm, left humerus and right tibia and fibula. History of fall. COMPARISON: The right tibia and fibula films dated 06/14/2014. TECHNIQUE: 2 views of the left forearm. FINDINGS: Left forearm: Diffuse osteopenia. No acute fracture or dislocation. Evaluation mildly limited by overlying IV catheter and tubing. Mild degenerative changes seen at the elbow joint and wrist joint. Mild dorsal soft tissue swelling over the distal forearm and wrist. Left humerus: Diffuse osteopenia. No acute fracture or dislocation. Glenohumeral joint intact. Moderate degenerative change at the nonbursal surface of the acromioclavicular joint. Mild enthesopathic changes seen at the medial epicondyle of the distal humerus. Right tibia and fibula: Diffuse osteopenia. Soft tissue swelling seen over the medial aspect of the proximal tibia. No definite acute fracture or dislocation seen. No knee joint effusion noted. Moderate degenerative change of the patellofemoral compartment and mild degenerative change in the medial femoral compartment seen. IMPRESSION: 1. Marked osteopenia. This limits the assessment of the evaluation for subtle fractures. 2. No definite acute fracture seen involving the left forearm, left humerus, right tibia and fibula. However, close clinical correlation is requested. If clinical suspicion remains high or if patient's symptoms persist, repeat radiographs should be obtained to assess for subtle healing changes at sites of occult fractures.
[2016-07-21 15:57] VITALS: BP 148/72
[2016-07-21] MEDS ORDERED: ELIQUIS5 M1 PO (16:55)
[2016-07-21] MEDS ORDERED: LABETALOL HCL100 M1 PO (16:55)
[2016-07-21] MEDS ORDERED: HYDRALAZINE HCL25 M1 PO (16:55)
[2016-07-21] MEDS ORDERED: LEVEMIR100 UNIT/1 SC (16:55)
[2016-07-21] MEDS ORDERED: NOVOLOG100 UNIT/2 SC (16:59)
[2016-07-21 23:51] VITALS: BP 132/60
[2016-07-22 08:03] VITALS: BP 134/60
[2016-07-22 08:05] LABS: ABSOLUTE BASOPHIL COUNT 0 /CUMM (0.0-0.2); ABSOLUTE EOSINOPHIL COUNT 0.3 /CUMM (0.0-0.7); ABSOLUTE GRANULOCYTE CT 3.7 /CUMM (1.4-6.5); ABSOLUTE LYMPH COUNT 2.2 /CUMM (1.2-3.4); ABSOLUTE MONOCYTE COUNT 0.7 /CUMM (0.10-0.60); BASOPHIL % 0.5 % (0.0-2.0); EOSINOPHIL % 3.7 % (0-5); GRANULOCYTE % 53.6 % (42.2-75.2); HEMATOCRIT 23.7 % (37-47); MEAN CORPUSCULAR HGB 29.3 PG (27.0-31.0); MEAN CORPUSCULAR VOLUME 88.9 FL (81.0-99.0); MEAN PLATELET VOLUME 10.1 FL (7.4-10.4); PLATELET COUNT 232 /CUMM (130-400); RBC DISTRIBUTION WIDTH 15.7 % (11.5-14.5); RED BLOOD CELL CT 2.67 /CUMM (4.20-5.40); WHITE BLOOD CELL COUNT 6.9 /CUMM (4.8-10.8)
--- NOTE | 2016-07-22 08:14 | PN- Housestaff ---
Subjective Follow-up For: - altered mental status Complaints: no complaints Tele-Events Since Last Visit: nsr, first deg HB, AR 0.24, HR 72-80, multiple PVCs. Subjective: Pt was comfortbale. No chest pain, shorntess of breath. was tearful that she is bed bound most of time. Vitals stable. Remained afebrile. Review of Systems Constitutional: Reports: see HPI. Objective Last 24 Hrs of Vital Signs/I&O Vital Signs Date Time Temp Pulse Resp B/P B/P Pulse O2 O2 Flow FiO2 Mean Ox Delivery Rate 07/22 802 98.7 73 20 134/60 98 Room Air 07/21 2351 99.1 76 20 132/60 97 Room Air 07/21 2120 90 20 156/82 05 2120 90 20 156/82 07/21 2119 90 20 156/82 07/21 2119 90 20 156/82 07/21 1557 99.2 78 16 148/72 98 Room Air 07/21 1051 61 160/78 07/21 1050 61 160/78 07 1050 61 160/78 Intake & Output 07/22 1600 07/22 0800 07/22 0000 Intake Total Output Total Balance Number 2 Bowel Movements Physical Exam General Appearance: No Acute Distress Other Physical Findings: General Appearance No Acute Distress, AAO x3 Skin No Rashes, No Breakdown Skin Temp/Moisture Exam: Warm/Dry Sepsis Skin Exam (color): Normal for Ethnicity HEENT Atraumatic, PERRLA, EOMI Neck Supple, No JVD, No thryomegaly, +2 Carotid Pulse wo Bruit Lymphatic Cervical nl Cardiovascular Regular Rate, Normal S1, Normal S2 Lungs Normal Air Movement Abdomen Normal Bowel Sounds, Soft, No Tenderness Neurological Reflexes 2+, strengh 2/5 left upper and lower extremity strength 4/ 5 right upper and lower extremity, cranial nerves could not be tested cerebellar tests could not be tested. Extremities No Clubbing, No Cyanosis, No Edema Vascular Pulses Symmetrical Current Medications: Current Medications Sig/Renee Start time Last Medication Dose Route Stop Time Status Admin Acetaminophen 1,000 MG Q6P PRN 05/ 1915 AC 05/06 N/A 1 UNIT IV 2256 Acetaminophen 650 MG Q6 PRN / 1615 AC 05/06 PO 1738 Apixaban 5 MG BID 07/20 220 AC 05/ PO 211 Atorvastatin Calcium 80 MG 1700 07/19 1700 AC 07/21 PO 1702 Chlorhexidine 15 ML MoWeFr 07/19 1530 AC 07/19 Gluconate PO 1742 Dextrose/Sodium 1,000 ML SEE RATE 07/19 1515 AC Chloride IV Ferrous Sulfate 325 MG DAILY 07/20 1000 AC 07/21 PO 1050 Gabapentin 200 MG BID 07/19 220 AC 07/21 PO 211 Hydralazine HCl 100 MG BID 07/21 220 AC 07/21 PO 2120 Hydralazine HCl 75 MG BID 07/20 1000 DC 07/21 PO 1050 Insulin Aspart 0 TIDAC 07/20 170 AC 07/21 SC 170 Insulin Detemir 10 UNITS AT BEDTIME 07/19 2199 AC 07/21 SC 211 Labetalol HCl 50 MG BID 07/21 2199 AC 07/21 PO 211 Labetalol HCl 100 MG BID 07/20 1000 DC 07/21 PO 105 Losartan Potassium 50 MG BID 07/19 2199 AC 07/21 PO 212 Multivitamins 1 TAB DAILY 07/20 1000 AC 07/21 Therapeutic PO 105 Tamsulosin HCl 0.4 MG AT BEDTIME 07/19 2199 AC 07/21 PO 2118 Last 24 Hrs of Lab/Klaus Results Last 24 Hrs of Labs/Mics: Laboratory Tests 07/22/16 06: Sodium Pending, Potassium Pending, Chloride Pending, Carbon Dioxide Pending, Anion Gap Pending, BUN Pending, Creatinine Pending, BUN/Creatinine Ratio Pending , Magnesium Pending, CBC w Diff NO MAN DIFF REQ, RBC 2.67 L, MCV 88.9, MCH 29.3 , RDW 15.7 H, MPV 10.1, Gran % 53.6, Lymphocytes % 32.5, Monocytes % 9.7 H, Eosinophils % 3.7, Basophils % 0.5, Absolute Granulocytes 3.7, Absolute Lymphocytes 2.2, Absolute Monocytes 0.7 H, Absolute Eosinophils 0.3, Absolute Basophils 0, PUBS MCHC 33.0 Assessment/Plan Assessment: 85 year old woman, with a PMH of HTN, paroxysmal atrial flutter, renal artery stenosis, history of CVA admitted for altered mental status, bradycardia, hypoglycemia, and hypertensive urgency. Family noticed patient became confused and then unresponsive. Fingerstick checked by EMS was 40. Patient was diaphoretic and flushed at that time. Improved with D50 infusion. Bradycardic 40-60 on admission, no evidence of arrythmia. Assesment and Plan: 1. Symptomatic Bradycardia/Syncope: - The patient had symptomatic bradycardia leading to syncope and unresponsiveness. - No arrythmia, likely secondary to beta blockers. - The dose of labetalol has been reduced to 100 BID, will reduce further to 50 mg BID per cardiology today due to episode of cindy. Titrate up, if needed. -The patient and her family were not comfortable with her getting discharged today with the changes in the medications that were made today, as there will be no longer be close monitring for her plus it is very hard for her to follow up with doctors due to her residual left sided weakness econdary to stroke. She already has visiting nurses twice a week but wanted to talk to a care co- ordinator before discharge and wanted to make sure she has care after discharge. 2. Chest pain: - 3 sets of troponin were negative no EKG changes. - Continue atorvastatin, continue labetalol but at a lower dose 3. Hypertensive Urgency: - The patient has a history of HTN. BP has been high - Will continue losartan - Increasing hydralazine to 100 mg BID per cardio 4. Insulin-dependent diabetes/ hypoglycemia in setting of poor by mouth intake - presented with hypoglycemia, now blood sugars are better controlled. - ISS - Levemir 10 at bedtime 5. Paroxysmal A. fib - Currently in normal sinus rhythm - Continue Eliquis - Labetalol 6. DVT prophylaxis On Eliquis 7. Full code Problem List: 1. Atrial fibrillation 2. Benign hypertension 3. Diabetes mellitus type 2 4. Dyslipidemia 5. Sinus bradycardia Pain Ratin Pain Location: all over the body. Pain Goal: Pain 4 or less Pain Plan: gabapentin Tomorrow's Labs & Rationales: cbc bep Consulting Request: Consulting Specialty: Cardiology Consulting Physician: Dr. Bradford Reason for Consult: Bradycardia
--- NOTE | 2016-07-22 08:25 | ECHOCARDIOGRAM REPORT ---
CHAMP COBIAN Age: 85 : 1930 Gender: F Exam Date: 07/21/2016 09:41 Exam Location: [address] Ht (in): 62 Wt (lb): 164 BSA: 1.83 BP: 120 / 54 Ordering Physician: JOSE LUIS CALDWELL MD Referring Physician: Michael Anthony MD, PhD Technologist: Cammie Mendes [facility] Room Number: 185-02 Indications: VENTRICULAR TACHYCARDIA Rhythm: Sinus Technical Quality: good FINDINGS Left Ventricle Normal left ventricular size with moderate left ventricular hypertrophy. Normal systolic function with no obvious regional wall motion abnormalities. Diastolic filling pattern is consistent with impaired LV relaxation. The ejection fraction is visually estimated at 85%. Right Ventricle The right ventricle is normal in size and function. Right Atrium The right atrium is normal in size. Left Atrium The left atrium is mildly enlarged. The interatrial septum is intact. Mitral Valve The mitral valve is normal in structure and function. There is no mitral regurgitation. Aortic Valve Structurally normal aortic valve without significant sclerosis or stenosis. There is no aortic regurgitation. Tricuspid Valve The tricuspid valve is normal in structure and function. There is trace tricuspid regurgitation. Pulmonary artery systolic pressure is normal. Pulmonic Valve Structurally normal pulmonic valve. There is no pulmonic regurgitation. Pericardium Normal pericardium without effusion. No pleural effusion. Great Vessels Normal aortic root dimension. The aortic arch and great vessels are well seen and are normal. CONCLUSIONS 1. Hyperdynamic EF of 85% with impaired LV relaxation. 2. Moderate left ventricular hypertrophy. 3. Mild left atrial enlargement. 4. Trace tricuspid regurgitation. Michael Anthony M.D. (Electronically Signed) Final Date: 22 Jul 2016 08:24 MEASUREMENTS (Male / Female) Normal Values 2D ECHO LV Diastolic Diameter PLAX 4.2 cm 4.2 - 5.9 / 3.9 - 5.3 cm LV Systolic Diameter PLAX 1.9 cm 2.1 - 4.0 cm LV Fractional Shortening PLAX 54.8 % 25 - 46 % LV Ejection Fraction 2D Teich 85.8 % IVS Diastolic Thickness 1.5 cm LVPW Diastolic Thickness 1.4 cm LV Relative Wall Thickness 0.7 RV Internal Dim ED PLAX 3.3 cm 1.9 - 3.8 cm LVOT Diameter 1.8 cm Aortic Root Diameter 2.4 cm LA Systolic Diameter LX 4.3 cm 3.0 - 4.0 / 2.7 - 3.8 cm LA Volume 40.0 cm 18 - 58 / 22 - 52 cm Ascending Aorta Diameter 3.0 cm DOPPLER AV Peak Velocity 136.0 cm/s AV Peak Gradient 7.4 mmHg AV Mean Velocity 91.2 cm/s AV Mean Gradient 4.0 mmHg AV Velocity Time Integral 34.6 cm LVOT Peak Velocity 123.0 cm/s LVOT Peak Gradient 6.1 mmHg LVOT Mean Velocity 78.5 cm/s LVOT Mean Gradient 3.0 mmHg LVOT Velocity Time Integral 26.2 cm LVOT Stroke Volume 66.7 cm AV Area Cont Eq vti 1.9 cm AV Area Cont Eq pk 2.3 cm MV Peak Velocity 125.0 cm/s MV Peak Gradient 6.3 mmHg MV Mean Velocity 72.9 cm/s MV Mean Gradient 2.0 mmHg Mitral E Point Velocity 83.9 cm/s Mitral A Point Velocity 87.9 cm/s Mitral E to A Ratio 1.0 MV PHT Velocity 105.0 cm/s MV Deceleration [place] 507.0 cm/s MV Pressure Half Time 62.1 ms MV Area PHT 3.5 cm MV Deceleration Time 240.0 ms TR Peak Velocity 200.0 cm/s TR Peak Gradient 16.0 mmHg Right Atrial Pressure 5.0 mmHg Pulmonary Artery Systolic Pressu 21.0 mmHg Right Ventricular Systolic Press 21.0 mmHg PV Peak Velocity 142.0 cm/s PV Peak Gradient 8.1 mmHg PV Mean Velocity 98.1 cm/s PV Mean Gradient 4.0 mmHg PV Velocity Time Integral 35.2 cm LV E' Lateral Velocity 6.9 cm/s Mitral E to LV E' Lateral Ratio 12.2 LV E' Septal Velocity 4.5 cm/s Mitral E to LV E' Septal Ratio 18.6
--- NOTE | 2016-07-22 10:25 | PN- Cardiology ---
Subjective Subjective: * No complaints * sinus rhythm with no evidence of bradycardia Objective Vital Signs and I&Os Vital Signs Date Time Temp Pulse Resp B/P B/P Pulse O2 O2 Flow FiO2 Mean Ox Delivery Rate 07/22 802 98.7 73 20 134/60 98 Room Air 07/21 2351 99.1 76 20 132/60 97 Room Air 07/21 2120 90 20 156/82 07/21 2120 90 20 156/82 07/21 2119 90 20 156/82 07/21 2119 90 20 156/82 07/21 1557 99.2 78 16 148/72 98 Room Air 07/21 1051 61 160/78 07/21 1050 61 160/78 07/21 1050 61 160/78 Intake & Output 07/22 1600 07/22 0800 07/22 0000 07/21 1600 07/21 0800 07/21 0000 Intake Total 480 340 600 Output Total Balance 480 340 600 Intake, IV 100 Intake, Oral 480 240 600 Number 2 1 Bowel Movements Physical Exam: General: WD/ obese female in NAD; awake and responsive Neck: no JVD, no carotid bruit Heart: RRR with 2/6 systolic murmur Lungs: clear bilaterally Extremities: no edema Neuro: no movement on left side Assessment/Plan Assessment/Plan * Blood pressures were up yesterday. Agree with monitoring for another day to determine if the increase in hydralazine will compensate for a low dose of Labetolol. I suspect she will need at least 100mg BID of this Labetolol but we can monitor of 50mg BID for now. Continue telemetry? Yes
--- NOTE | 2016-07-22 14:56 | NUR ---
Pt. intially c/o bone pain and then c/o headache. Pt. could not state a specific number of pain but did look to be in acute disctress via FLACC. BP 144/72, and patient repositioned. Once patient was repositioned she stated that she "felt better." Will continue to monitor. Primary nurse to be made aware. No need to contact physician at this exact time, but will advise primary nurse to do so if patient continues to c/o pain.
[2016-07-22 15:30] VITALS: BP 142/80
--- NOTE | 2016-07-22 17:42 | PN- Att Addend ---
Attending MD Review Statement Attending Statement Attending MD Statement: examined this patient, discuss w/resident/PA/INTERIOR PLANT CARETAKER, agreed w/resident/PA/INTERIOR PLANT CARETAKER, reviewed EMR data (avail), discussed w/nursing, discussed w/ case mgmt Attending Assessment/Plan: Laboratory Tests 07/22/16 0627: Anion Gap 9, Estimated GFR 59 L, BUN/Creatinine Ratio 17.8, Magnesium 1.9, Iron 30 L, TIBC 230 L, Ferritin 113.0, CBC w Diff NO MAN DIFF REQ, RBC 2.67 L, MCV 88.9, MCH 29.3, RDW 15.7 H, MPV 10.1, Gran % 53.6, Lymphocytes % 32.5, Monocytes % 9.7 H, Eosinophils % 3.7, Basophils % 0.5, Absolute Granulocytes 3.7, Absolute Lymphocytes 2.2, Absolute Monocytes 0.7 H, Absolute Eosinophils 0.3, Absolute Basophils 0, PUBS MCHC 33.0 Vital Signs Date Time Temp Pulse Resp B/P B/P Pulse O2 O2 Flow FiO2 Mean Ox Delivery Rate 07/228 134/60 07/22 1127 134/60 07/22 1127 134/60 07/22 0803 98.7 73 20 134/60 98 Room Air 07/21 2351 99.1 76 20 132/60 97 Room Air 07/21 2120 90 20 156/82 07/21 2120 90 20 156/82 07/21 211 90 20 156/82 07/21 2118 90 20 / Patient seen and examined at bedside. Discussed with patient the care plan. Patient with prior history of CVA recently with the left-sided weakness and mostly bedbound secondary to that. Patient was very tearful today when I talked with her secondary to her recent CVA and inability to move around. Patient admitted with unresponsive episode on this admission and was found by emergency medical services to have low blood sugar. Also found to have some bradycardia on satellite project site monitor on admission. Her hemoglobin was also found to be low today which is actually close to her baseline. We will repeat the hemoglobin tomorrow morning and see if it is stable. If dropping further we will transfuse her 1 unit packed RBC. Also patient appears to be depressed so we will start her on low-dose of antidepressants and have her follow-up with psychiatry as an outpatient.
[2016-07-23 01:00] VITALS: BP 148/72
--- NOTE | 2016-07-23 06:39 | Discharge Summary ---
Visit Information Visit Dates Admission Date: 07/19/16 Discharge Date: 07/23/16 Hospital Course Course Attending Physician: KANDICE DE LA GARZA MD Primary Care Physician: RAMBO SNIDER MD Consulting Request: Consulting Specialty: Cardiology Consulting Physician: Dr. Bradford Reason for Consult: Bradycardia Hospital Course: Ms Landaverde is an 85-year-old woman who has a past medical history of paroxysmal atrial fibrillation (dx 2009 and on NOAC), uncontrolled hypertension likely secondary to renal artery stenosis, CVA (dx'ed 12/2015) which resulted in left sided paralysis w/ residual weakness who was evalutated for an unresponsive event as witnessed by her order processor on the day of admission. After the patient had a nap late morning today, she was found to have had difficulty breathing, diaphoretic and was unresponsive subsequently. Blood glucose reading at that time was less than 50 mg/dl. At the time of admission, vitals-temperature 97.0, pulse rate 65, respiratory rate 20, blood pressure 135/62, 97% on room air. Lab findings indicated WBC 6.0 , hemoglobin 8.0 (baseline 9.3 on 06/27/2016), platelets 209, normal electrolytes sodium 139, potassium 3.4, bicarbonate 21, BUN 20, serum creatinine 0.9. Normal AST, ALT. Alkaline phosphatase 194 (slightly elevated), albumin 2.7 (low-likely from nutrition). MCV 88.9, Fe 30, TIBC 230, Ferritin 113. Chest x-ray revealed mild vascular congestion. No signs of any infiltrate or consolidation was found. Differential diagnosis: 1. Hypoglycemic episode 2. Syncope- likely cardiac Below is the problem list and plan: #1 unresponsiveness-pt was monitored closely on telemetry. The period of unresponsiveness was largely attributed to hypoglycemia, as there was no other clear etiology that was found. Patient was found to be taking 20 units of long- acting insulin at home, and insulin sliding scale which was adjusted accordingly. HbA1c pending.. Cardiac was not ruled out completely, but pt did not havy telemetry events, nor any other findings directly s/o of a vavlular cause(echo finding below). However, pt was found to have bradycardiac during the initial part of the stay in the hospital. #2 atrial fibrillation- found to be in normal sinus rhythm. Found to bradycardic at the time of admission. thyroid function test was wnl. Beta blockers were intially held, but were titrated as the blood pressure allowed. Also continued on alternate medications for blood pressure control such as hydralazine and losartan. Dr. Anthony was consuted for advice. #4 history of CHF-diastolic dysfunction. Echocardiogram revealed diastolic filling pattern is consistent with impaired LV relaxation. The ejection fraction is visually estimated at 85%. #5 anemia-hemoglobin 8.0.(baseline >9) No history of melena. Further investigation as an outpatient. Likely anemia of chronic disease. Allergies: Coded Allergies: NO KNOWN ALLERGIES (05/29/15) Pertinent Lab Results: RAD - XRY-PORTABLE CHEST XRAY Mild vascular congestion. Mild pulmonary edema or community-acquired/viral pneumonia in the appropriate clinical setting. ECHOCARDIOGRAM Michael Anthony M.D. 1. Hyperdynamic EF of 85% with impaired LV relaxation. 2. Moderate left ventricular hypertrophy. 3. Mild left atrial enlargement. 4. Trace tricuspid regurgitation. Disposition Summary Disposition Principal Diagnosis: Hypoglyemia Additional Diagnosis: Bradycardia Discharge Disposition: home or self care Discharge Instructions General Discharge Information Code Status: Full Code Patient's Diet: heart healthy diet Patient's Activity: as tolerated Follow-Up Instructions/Appts: 1. Please follow up with your pcp within one week 2. Please follow up with your industrial locomotive operator within one week. Medications at Discharge Discharge Medications: Stop taking the following medications: Apixaban (Eliquis) 2.5 MG TABLET ORAL TWICE DAILY Qty = 30 Hydralazine HCl (Hydralazine HCl) 50 MG TABLET ORAL TWICE DAILY Qty = 30 Labetalol HCl (Labetalol HCl) 200 MG TABLET ORAL TWICE DAILY Qty = 30 Insulin Aspart, Recombinant (Novolog Flexpen) 100 UNIT/ML INSULN.PEN Inject into fatty tissue BEFORE MEALS AND AT BEDTIME Qty = 15 Insulin Detemir (Levemir Flextouch) 100 UNIT/ML (3 ML) INSULN.PEN Inject into fatty tissue DAILY Qty = 15 Continue taking these medications: Losartan Potassium (Losartan Potassium) 50 MG TABLET 1 Tablet ORAL TWICE DAILY Qty = 60 Comments: GIVEN 07/23/16 @ 10 AM Tamsulosin HCl (Tamsulosin HCl) 0.4 MG CAP.ER.24H 1 Capsule ORAL AT BEDTIME Qty = 30 Comments: GIVEN 07/22/16 @ 10:45 PM Gabapentin (Gabapentin) 100 MG CAPSULE 2 Capsule ORAL TWICE DAILY Qty = 60 Comments: GIVEN 07/23/16 @ 10 AM Atorvastatin Calcium (Atorvastatin Calcium) 80 MG TABLET 1 Tablet ORAL 5 PM Qty = 30 Comments: Last Taken: 07/23/16 Time: 6 PM Chlorhexidine Gluconate (Periogard) 0.12 % MOUTHWASH 15 Milliliters ORAL MoWeFr Qty = 473 Comments: GIVEN 07/19/16 @ 5:45 PM Aspirin (Lo-Dose Aspirin EC) 81 MG TABLET.DR 1 Tablet ORAL MoTuFr Comments: GIVEN 07/19/16 @ 5:45 PM Lansoprazole (Prevacid) 30 MG TAB.RAP.DR 1 Tablet ORAL DAILY Qty = 30 Comments: NOT GIVEN Multivitamin (Multi-Day Vitamins) 1 EACH TABLET 1 Tablet ORAL DAILY Comments: GIVEN 07/23/16 @ 10 AM Ferrous Sulfate (IRON) 325 MG (65 MG IRON) TABLET 1 Tablet ORAL DAILY Comments: GIVEN 07/23/16 @ 10 AM Insulin Detemir (Levemir) 100 UNIT/ML VIAL 10 Units Inject into fatty tissue TWICE DAILY Qty = 10 Comments: GIVEN 07/22/16 @ 10:45 PM This prescription has been renewed Start taking the following new medications: Apixaban (Eliquis) 5 MG TABLET 5 Milligram ORAL TWICE DAILY Qty = 30 No Refills Comments: GIVEN 07/23/16 @ 10 AM Hydralazine HCl (Hydralazine HCl) 25 MG TABLET 100 Milligram ORAL TWICE DAILY Qty = 60 No Refills Comments: GIVEN 07/23/16 @ 10 AM Labetalol HCl (Labetalol HCl) 100 MG TABLET 50 Milligram ORAL TWICE DAILY Qty = 60 No Refills Comments: GIVEN 07/23/16 @ 10 AM Insulin Detemir (Levemir) 100 UNIT/ML VIAL 10 Units Inject into fatty tissue AT BEDTIME Days = 30 No Refills Insulin Aspart (Novolog) 100 UNIT/ML VIAL 0 Units Inject into fatty tissue 3 TIMES DAILY BEFORE MEALS Days = 30 No Refills Instructions: 80 - 150 0 units 151 - 200 1 unit 201 - 250 2 units 251 - 300 3 units 301 - 350 4 units 351 - 400 6 units > 400 8 units and call MD Comments: GIVEN 07/23/16 @ 6 PM Copies To: TYLOR ARORA,RAMBO David Attending MD Review Statement Documenting Attending: OHLLI ARORA,KANDICE
[2016-07-23 08:23] VITALS: BP 132/60
[2016-07-23 08:24] LABS: ABSOLUTE BASOPHIL COUNT 0 /CUMM (0.0-0.2); ABSOLUTE EOSINOPHIL COUNT 0.3 /CUMM (0.0-0.7); ABSOLUTE GRANULOCYTE CT 3.9 /CUMM (1.4-6.5); ABSOLUTE LYMPH COUNT 2.4 /CUMM (1.2-3.4); ABSOLUTE MONOCYTE COUNT 0.7 /CUMM (0.10-0.60); BASOPHIL % 0.5 % (0.0-2.0); EOSINOPHIL % 3.6 % (0-5); GRANULOCYTE % 53.7 % (42.2-75.2); HEMATOCRIT 23.1 % (37-47); MEAN CORPUSCULAR HGB 29.8 PG (27.0-31.0); MEAN CORPUSCULAR HGB CONC 33.6 G/DL (33.0-37.0); MEAN CORPUSCULAR VOLUME 88.8 FL (81.0-99.0); MEAN PLATELET VOLUME 9.9 FL (7.4-10.4); PLATELET COUNT 220 /CUMM (130-400); WHITE BLOOD CELL COUNT 7.3 /CUMM (4.8-10.8)
--- NOTE | 2016-07-23 08:45 | NUR ---
Physical Therapy. PT consult received and chart reviewed. 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 Pt is not appropriate for acute PT at this time. PT will not follow.
--- NOTE | 2016-07-23 09:54 | PN- Housestaff ---
ANSHU ARORA,JORDAN 07/23/16 0953: Subjective Follow-up For: SYNCOPE Subjective: Seen and examined at bedside. Does not endorse any acute complaint include dizzines,chestpain/palpitation,shortness of breath. No acute o/n event reported by nursing staff. Review of Systems Constitutional: Reports: no symptoms. Objective Last 24 Hrs of Vital Signs/I&O Vital Signs Date Time Temp Pulse Resp B/P B/P Pulse O2 O2 Flow FiO2 Mean Ox Delivery Rate 07/23 1600 Room Air 07/23 1530 99.3 81 16 116/60 94 Room Air 07/23 0951 132/60 07/23 0951 132/60 07/23 0951 132/60 07/23 0823 98.9 76 18 132/60 96 Room Air Intake & Output 07/24 0800 07/24 0000 07/23 1600 Intake Total 120 720 Output Total Balance 120 720 Intake, Oral 120 720 Physical Exam General Appearance: Alert, Oriented X3, Cooperative Other Physical Findings: General Appearance Alert, Oriented X3, Cooperative, No Acute Distress Skin No Rashes, No Breakdown, No Significant Lesion Skin Temp/Moisture Exam: Warm/Dry Sepsis Skin Exam (color): Normal for Ethnicity HEENT Atraumatic, PERRLA, EOMI Neck Supple, No JVD, No thryomegaly, +2 Carotid Pulse wo Bruit Lymphatic Cervical nl Cardiovascular Regular Rate, Normal S1, Normal S2 Lungs Normal Air Movement, wheezing b/l Abdomen Normal Bowel Sounds, Soft, No Tenderness, No Hepatospenomegaly Neurological Normal Speech, Strength at 5/5 X4 Ext, Normal Tone, Sensation Intact, Cranial Nerves 3-12 NL, Reflexes 2+ Extremities No Clubbing, No Cyanosis, Normal Pulses, pedal edema Vascular Pulses Symmetrical Current Medications: Current Medications Sig/Renee Start time Last Medication Dose Route Stop Time Status Admin Acetaminophen 1,000 MG Q6P PRN 07/20 1915 DCD 07/22 N/A 1 UNIT IV 1128 Acetaminophen 650 MG Q6 PRN 07/20 1615 DCD 07/22 PO 1859 Apixaban 5 MG BID 07/20 2200 DCD 07/23 PO 0951 Atorvastatin Calcium 80 MG 1700 07/19 1700 DCD 05 PO 1804 Chlorhexidine 15 ML MoWeFr 07/19 1530 DCD 05 Gluconate PO 1742 Dextrose/Sodium 1,000 ML SEE RATE 07/19 1515 DCD Chloride IV Ferrous Sulfate 325 MG DAILY 07/20 1000 DCD 07/23 PO 0951 Gabapentin 200 MG BID 07/19 2200 DCD 07/23 PO 0951 Hydralazine HCl 100 MG BID 07/21 2200 DCD 07/23 PO 0951 Insulin Aspart 0 TIDAC 07/20 1700 DCD 07/23 SC 1801 Insulin Detemir 10 UNITS AT BEDTIME 07/19 2200 DCD 07/22 SC 2245 Labetalol HCl 50 MG BID 07/21 2200 DCD 07/23 PO 0951 Losartan Potassium 50 MG BID 07/19 2200 DCD 07/23 PO 0951 Multivitamins 1 TAB DAILY 07/20 1000 DCD 07/23 Therapeutic PO 0951 Patient Medication 1 ED .STK-MED ONE 07/23 1401 DC Teaching ED 07/23 1402 Tamsulosin HCl 0.4 MG AT BEDTIME 07/190 DCD 07/22 PO 2246 Assessment/Plan Assessment: 85 year old woman, with a PMH of HTN, paroxysmal atrial flutter, renal artery stenosis, history of CVA admitted for altered mental status, bradycardia, hypoglycemia, and hypertensive urgency. Family noticed patient became confused and then unresponsive. Fingerstick checked by EMS was 40. Patient was diaphoretic and flushed at that time. Improved with D50 infusion. Bradycardic 40-60 on admission, no evidence of arrythmia. Assesment and Plan: Pt is stable for discharge today. 1. Symptomatic Bradycardia/Syncope: - The patient had symptomatic bradycardia leading to syncope and unresponsiveness. - No arrythmia, likely secondary to beta blockers. - The dose of labetalol has been firther reduced to 50 mg BID per cardiology today due to episode of cindy. This dose has patient rate controlled. -The patient and her family were not comfortable with her getting discharged today with the changes in the medications that were made today, as there will be no longer be close monitring for her plus it is very hard for her to follow up with doctors due to her residual left sided weakness econdary to stroke. She already has visiting nurses twice a week but wanted to talk to a care co- ordinator before discharge and wanted to make sure she has care after discharge. 2. Chest pain: ACS ruled out. - Continue atorvastatin, continue labetalol but at a lower dose 3. Hypertension - The patient has a history of HTN. - Will continue losartan - Increased hydralazine to 100 mg BID per cardio 4. Insulin-dependent diabetes/ hypoglycemia in setting of poor by mouth intake - presented with hypoglycemia, now blood sugars are better controlled. - ISS - Levemir dose increased to 10 bid 5. Paroxysmal A. fib - Currently in normal sinus rhythm - Continue Eliquis - Labetalol 6. DVT prophylaxis On Eliquis 7. Full code Problem List: 1. Atrial fibrillation 2. Benign hypertension Pain Ratin Pain Location: none Pain Goal: Remain pain free Pain Plan: per pain pathway Tomorrow's Labs & Rationales: none-discharge Consulting Request: Consulting Specialty: Cardiology Consulting Physician: Dr. Bradford Reason for Consult: Bradycardia HOLLI ARORA,[facility] 07/23/16 1531: Attending MD Review Statement Attending Statement Attending MD Statement: examined this patient, discuss w/resident/PA/DIRECTOR PRODUCT MANAGEMENT, agreed w/resident/PA/DIRECTOR PRODUCT MANAGEMENT, reviewed EMR data (avail), discussed with nursing, discussed with case mgmt, reviewed images, amended to note Attending Assessment/Plan: Patient seen and examined, did complain of some pain in her bilateral lower extremities which she states that has been present after her stroke secondary to the neuropathy. She said that kind pain medication helping. Heart rate is at the table so is the H&H. Patient does another bed available at rehabilitation today and she will be discharged to rehabilitation. She will follow-up with pcp , cardiology as outpatient.
[2016-07-23] MEDS ORDERED: LEVEMIR100 UNIT/1 SC (11:09)
--- NOTE | 2016-07-23 11:17 | Patient Discharge Instructions ---
Discharge Instructions General Discharge Information You were seen/treated for: SYNCOPE Special Instructions: Please seek medical attention if you develop increased dizziness Please follow up with your primary care physician within 1 week Please follow up with your retail presentation specialist within 1 week Acute Coronary Syndrome Inclusion Criteria At DC or during hospital stay patient has or had the following: ACS DIAGNOSIS No Discharge Core Measures Meds if any: Prescribed or Continued at Discharge Meds if any: NOT Prescribed or Continued at Discharge Congestive Heart Failure Inclusion Criteria At DC or during hospital stay patient has or had the following: CHF DIAGNOSIS No Discharge Core Measures Meds if any: Prescribed or Continued at Discharge Meds if any: NOT Prescribed or Continued at Discharge Cerebrovascular accident Inclusion Criteria At DC or during hospital stay patient has or had the following: CVA/TIA Diagnosis No Discharge Core Measures Meds if any: Prescribed or Continued at Discharge Meds if any: NOT Prescribed or Continued at Discharge Venous thromboembolism Inclusion Criteria VTE Diagnosis No VTE Type NONE VTE Confirmed by (Test) NONE Discharge Core Measures - Per Current guidelines, there needs to be overlap - treatment for the first 5 days of Warfarin therapy. - If discharged on Warfarin prior to 5 days of - overlap therapy, the patient will need to be - assessed for post discharge needs including - *Post discharge parental anticoagulation - *Warfarin and/or parental anticoagulation education - *Follow up date to check INR post discharge At least 5 days overlap therapy as Inpatient No Meds if any: Prescribed or Continued at Discharge Note: Overlap Therapy is Warfarin and Anticoagulant Meds if any: NOT Prescribed or Continued at Discharge
--- NOTE | 2016-07-23 13:37 | NUR ---
SPEECH THERAPY: PER MST AND RN, PT HAS BEEN TOLERATING PUREE DIET AND HONEY THICK LIQUIDS W/ NO COUGHING/DIFFICULTIES. MST STATES PT WAS EXPRESSING DISLIKE FOR PUREE DIET, BUT ATE 100% OF MEAL. PT CURRENTLY TOLERATING PO INTAKE ORALLY, WITH NO TUBE FEEDS. ST CONTACTED NURSING MANUAL LATHE MACHINIST, [place], AT [facility]. SHE STATES THAT PT WAS TOLERATING MECHANICALLY ALTERED DIET WITH EXTRA GRAVY AND NECTAR THICK LIQUIDS. ST ATTEMPTED TO SEE PT FOR DIET TOLERANCE/ADVANCEMENT, HOWEVER, PT HAD JUST FINISHED 100% OF LUNCH TRAY AND WAS SLEEPING AT BEDSIDE. ST CONTINUE TO FOLLOW FOR DIET TOLERANCE/ADVANCEMENT. D/W RN.
[2016-07-23 15:30] VITALS: BP 116/60
--- NOTE | 2016-07-23 16:26 | PN- Cardiology ---
Subjective Subjective: * No complaints. * sinus rhythm Objective Vital Signs and I&Os Vital Signs Date Time Temp Pulse Resp B/P B/P Pulse O2 O2 Flow FiO2 Mean Ox Delivery Rate 07/23 950 132/60 07/23 0851 132/60 07/23 950 132/60 07/23 822 98.9 76 18 132/60 96 Room Air 07/23 0100 98.1 78 18 148/72 96 Room Air 07/23 0000 Room Air 07/22 2247 81 142/80 07/22 224 81 142/80 07/22 2246 81 142/80 07/22 2245 81 142/80 Intake & Output 07/23 1600 07/23 0000 07/22 1600 07/22 0000 Intake Total 400 200 480 Output Total Balance 400 200 480 Intake, Oral 400 200 480 Number 2 Bowel Movements Physical Exam: General: WD/ obese female in NAD; awake and responsive Neck: no JVD, no carotid bruit Heart: RRR with 2/6 systolic murmur Lungs: clear bilaterally Extremities: no edema Neuro: no movement on left side Assessment/Plan Assessment/Plan * Blood pressures appear well controlled today on her current drug regimen. No changes for now. Okay for discharge from a cardiac standpoint with follow up in the office in one to two weeks. Continue telemetry? Yes
== END 2016-07-23 18:29 | disposition home health service (06) | DRG 638 ==
LOC: ERH 11:53 → 1NO 13:34 → ERHI 13:34 → ENRESERV 17:11 → 1NO 19:07
PROVIDERS: Dermatology; Emergency Medicine; Internal Medicine; Internal Medicine Endocrinology, Diabetes & Metabolism; ADMIT Internal Medicine
DX: E11.649 Type 2 diabetes mellitus with hypoglycemia without coma (principal); I69.854 Hemiplegia and hemiparesis following other cerebrovascular disease affecting left non-dominant side; R00.1 Bradycardia, unspecified; I11.0 Hypertensive heart disease with heart failure; I50.32 Chronic diastolic (congestive) heart failure; I48.0 Paroxysmal atrial fibrillation; I48.2 Chronic atrial fibrillation; Z93.1 Gastrostomy status; D64.9 Anemia, unspecified; I70.1 Atherosclerosis of renal artery; I16.1 Hypertensive emergency; R41.82 Altered mental status, unspecified; I44.0 Atrioventricular block, first degree; E78.5 Hyperlipidemia, unspecified; K21.9 Gastro-esophageal reflux disease without esophagitis; Z79.4 Long term (current) use of insulin; Z79.01 Long term (current) use of anticoagulants
CPT/HCPCS: 1NSP; 36415; 73060-LT; 73090-LT; 73590-RT; 80307; 82436; 93005; 93010; 93306; J0131; J3490

== ENCOUNTER 2016-08-24 20:39 | Inpatient (IN) | payer OTHER, MEDICARE ==
[~2016-08-24] VITALS: Ht 157.5 cm; Wt 79.6 kg
[~2016-08-24 20:39] MED LIST changes: +ELIQUIS5 M1 PO; +LABETALOL HCL100 M1 PO; +NOVOLOG100 UNIT/2 SC
--- NOTE | 2016-08-24 20:56 | NUR ---
PT BIBA FROM HOME AFTER INCREASED LETHARGY AND GENERAL MALAISE AND BODY ACHES. PT'S DAUGHTER REPORTS PT HAS HAD NO PO INTAKE SINCE 08/14, AND HAS TAKEN ALL NOURISHMENT AND FLUIDS THROUGH G-TUBE. PT ARRIVES LETHARGIC BUT APPROPRIATELY RESPONSIVE, TEARFUL AT TIMES. DAUGHTER IS AT BEDSIDE.
--- NOTE | 2016-08-24 20:56 | NUR ---
PT DAUGHTER ADDITIONALLY REPORTS THAT PT HAS HAD DIARRHEA SINCE 08/14, AND THAT BM IS DARK AND FOUL-SMELLING
--- NOTE | 2016-08-24 21:19 | NUR ---
DR GANDHI IN WITH PATIENT
--- NOTE | 2016-08-24 21:33 | ED GI/GU/ABDOMINAL COMPLAINT ---
History of Present Illness General Chief Complaint: General Adult Stated Complaint: INCREASED LETHRAGY X 2 WEEKS,DECRAESE IN PO INTAKE Source: patient, family, old records, EMS Exam Limitations: poor historian Vital Signs & Intake/Output Vital Signs & Intake/Output Vital Signs Date Time Temp Pulse Resp B/P B/P Pulse O2 O2 Flow FiO2 Mean Ox Delivery Rate 08/26 2256 72 210/88 08/26 2255 72 210/88 08/26 2255 72 21008/26 2030 96 Room Air 08/26 0400 95 Room Air 08/26 0000 98.0 71 20 170/80 95 Room Air 08/26 0000 93 Room Air ED Intake and Output 08/26 0000 08/25 1200 Intake Total 2174 564 Output Total 570 490 Balance 1604 74 Intake, Blood 700 Product Intake, IV 874 564 Intake, Oral 0 Intake, Tube 600 Irrigant Number 0 Bowel Movements Output, Urine 570 490 Patient 165 lb Weight Weight Bed scale Measurement Method Allergies Coded Allergies: NO KNOWN ALLERGIES (05/29/15) Reconcile Medications Apixaban (Eliquis) 5 MG TABLET 5 MG PO BID a fib Aspirin (Lo-Dose Aspirin EC) 81 MG TABLET. 1 TAB PO MoTuFr HEART/BLOOD ( Reported) Atorvastatin Calcium 80 MG TABLET 1 TAB PO 1700 HLD (Reported) Chlorhexidine Gluconate (Periogard) 0.12 % MOUTHWASH 15 ML PO MoWeFr GUMS ( Reported) Ferrous Sulfate (IRON) 325 MG (65 MG IRON) TABLET 1 TAB PO DAILY SUPPLEMENT ( Reported) Gabapentin 100 MG CAPSULE 2 CAP PO BID NEUROPATHIC PAIN (Reported) Hydralazine HCl 25 MG TABLET 100 MG PO BID high blood pressure Insulin Aspart (Novolog) 100 UNIT/ML VIAL 0 UNITS SC TIDAC diabetes 80 - 150 0 units 151 - 200 1 unit 201 - 250 2 units 251 - 300 3 units 301 - 350 4 units 351 - 400 6 units > 400 8 units and call Insulin Detemir (Levemir) 100 UNIT/ML VIAL 10 UNITS SC AT BEDTIME diabetes Insulin Detemir (Levemir) 100 UNIT/ML VIAL 10 UNITS SC BID DIABETES Lansoprazole (Prevacid) 30 MG TAB.RAP.DR 1 TAB PO DAILY GI (Reported) Losartan Potassium 50 MG TABLET 1 TAB PO BID HEART/BP (Reported) Multivitamin (Multi-Day Vitamins) 1 EACH TABLET 1 TAB PO DAILY SUPPLEMENT ( Reported) Tamsulosin HCl 0.4 MG CAP.ER.24H 1 CAP PO AT BEDTIME (Reported) Triage Note: PT BIBA FROM HOME AFTER INCREASED LETHARGY AND GENERAL MALAISE AND BODY ACHES. PT'S DAUGHTER REPORTS PT HAS HAD NO PO INTAKE SINCE 08/14, AND HAS TAKEN ALL NOURISHMENT AND FLUIDS THROUGH G-TUBE. PT ARRIVES LETHARGIC BUT APPROPRIATELY RESPONSIVE, TEARFUL AT TIMES. DAUGHTER IS AT BEDSIDE. Triage Nurses Notes Reviewed? yes ? N Is pt currently ? No HPI: Patient presents for evaluation of decreased PO intake headaches abdominal pain and black diarrhea. It is somewhat unclear how long symptoms have been present but the majority have been noted for about 10 days. The patient's daughter states she just returned from a trip to [place] and began noticing the patient's deterioration in condition when she returned. He is being cared for by her and other family members in the meantime. Patient was recently admitted to the [facility] in July for an episode of unresponsiveness. She has not been reevaluated by her primary care physician since then. She is status post debilitating stroke with left sided paralysis and has had a gastrostomy tube placed as a result. Prior to the daughter's trip to [place] the patient seemed to be doing quite well with a good appetite. Past History Travel History Traveled to [place] past 21 day No Medical History Any Pertinent Medical History? 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 MOTHER ( unknown medical hx). . Hx Contributory? No Review of Systems Review of Systems Constitutional: Reports: no symptoms. EENTM: Reports: no symptoms. Respiratory: Reports: no symptoms. Cardiovascular: Reports: no symptoms. GI: Reports: see HPI. Genitourinary: Reports: no symptoms. Musculoskeletal: Reports: no symptoms. Skin: Reports: no symptoms. Neurological/Psychological: Reports: headache. Hematologic/Endocrine: Reports: no symptoms. Immunologic/Allergic: Reports: no symptoms. All Other Systems: Reviewed and Negative Physical Exam Physical Exam Gastrointestinal: see below Comments: Gen.: Well-nourished, well-developed, no acute respiratory distress. Head: Normocephalic, atraumatic. Eyes: Normal inspection bilaterally Ears: Normal inspection bilaterally Nose: Normal inspection Throat/mouth : Moist mucosa Neck: Supple, full range of motion, no goiter Heart: Regular rate and rhythm, no murmurs rubs or gallops Lungs: Clear to auscultation bilaterally with normal air entry Chest: Nontender Back: Normal range of motion Abdomen: Soft, mild diffuse tenderness without rebound or guarding, nondistended , normal bowel sounds, melena present on rectal inspection Extremities: Paralysis of the left upper and lower extremities with no spontaneous movements, equal radial pulses, no cyanosis clubbing or edema Neurologic: Cranial nerves grossly intact, speech is clear Skin: warm and dry, normal color Psychiatric: Calm, cooperative, no apparent delusions or hallucinations Core Measures ACS in differential dx? No Severe Sepsis Present: No Septic Shock Present: No Progress Differential Diagnosis: colitis, GI bleed Plan of Care: Orders Procedure Date/time Status CBC WITHOUT DIFFERENTIAL 08/27 1000 Active ICU LAB BUNDLE 08/27 0500 Active CBC WITHOUT DIFFERENTIAL 08/27 0200 Active CBC WITHOUT DIFFERENTIAL 08/26 1800 Complete PATHOLOGY SPECIMEN 08/26 1520 Active Arredondo, Insertion/Removal/Asses 08/26 0703 Active Arredondo, Insertion/Removal/Asses 08/26 0536 Complete GAMMA GLUTAMYL TRANSFERASE 08/26 0444 Complete SWALLOW EVALUATION 08/26 UNK Active Transfer patient to 08/26 UNK Active Lab Add-on Test 08/26 UNK Active Restraint- Medical 08/26 UNK Complete Nursing Misc 08/26 UNK Active MISSING MEDICATION FORM 08/26 UNK Active EKG 08/26 UNK Active NUTRITIONAL CONSULT 08/26 UNK Active Current Medications Sig/Renee Start time Last Medication Dose Stop Time Status Admin Acetaminophen 650 MG Q6 PRN 08/26 2300 UNVr 08/26 (Tylenol) 2255 Docusate Sodium 100 MG BID 08/26 2200 AC 08/26 (Colace) 2256 Carvedilol 12.5 MG BID 08/26 1455 AC 08/26 (Coreg) 2255 Glycerin 2 SPRAY Q2P PRN 08/26 1045 AC 08/26 ([place] [facility] 1525 Mouth Bracey) Hydralazine HCl 100 MG BID 08/26 1018 AC 08/26 (Apresoline) 2256 Losartan Potassium 50 MG BID 08/26 1000 AC 08/26 (Cozaar) 2255 Pantoprazole Sodium 40 MG DAILY 08/26 1000 AC 08/26 (Protonix) 0939 Metoprolol Tartrate 5 MG ONCE ONE 08/26 0930 CAN (Lopressor) 08/26 0931 Dextrose/Sodium 1,000 ML ONCE ONE 08/26 0900 AC 08/26 Chloride 08/27 0459 0900 (D5-Normal Saline) Insulin Human Regular 0 Q6 08/25 0600 AC 08/26 (NovoLIN R) 1200 Laboratory Tests 08/26/162024: CBC w Diff NO MAN DIFF REQ, RBC 3.16 L, MCV 90.6, MCH 29.8, RDW 15.1 H, MPV 10.3, Gran % 78.8 H, Lymphocytes % 15.7 L, Monocytes % 3.4, Eosinophils % 2.0, Basophils % 0.1, Absolute Granulocytes 9.2 H, Absolute Lymphocytes 1.8, Absolute Monocytes 0.4, Absolute Eosinophils 0.2, Absolute Basophils 0, PUBS MCHC 32.9 L 08/26/16 0600: CBC w Diff Cancelled, WBC Cancelled, RBC Cancelled, Hgb Cancelled, Hct Cancelled , MCV Cancelled, MCH Cancelled, RDW Cancelled, Plt Count Cancelled, MPV Cancelled, PUBS MCHC Cancelled 08/26/16 0444: Anion Gap 10, Estimated GFR > 60, Glucose 74, Calcium 9.1, Phosphorus 3.3, Magnesium 2.0, Total Bilirubin 1.8 H, GGT 169 H, AST 29, ALT 41, Albumin 2.9 L, CBC w Diff NO MAN DIFF REQ, RBC 3.16 L, MCV 90.3, MCH 30.2, RDW 14.9 H, MPV 9.7, Gran % 69.3, Lymphocytes % 21.6, Monocytes % 6.8, Eosinophils % 2.1, Basophils % 0.2, Absolute Granulocytes 7.6 H, Absolute Lymphocytes 2.4, Absolute Monocytes 0.7 H, Absolute Eosinophils 0.2, Absolute Basophils 0, PUBS MCHC 33.5 Initial ED EKG: NSR, rate (63), 1ST HB Prior EKG: unchanged Comments: case d/w dr dsouza and dr valles. Dr. Belcher prefers patient to be in the intensive care unit for monitoring and subsequent endoscopy. He recommends Protonix 40 mg IV twice a day and nothing by mouth after midnight. Departure Departure Disposition: STILL A PATIENT Condition: Stable Clinical Impression Primary Impression: Upper GI bleed Referrals: TYLOR ARORA,RAMBO David (PCP/Family) Departure Forms: Customer Survey General Discharge Information Admission Note Spoke With: BECKI ARORA,[facility] Documentation of Exam: Documentation of any treatments & extenuating circumstances including Concerns Regarding Discharge (functional status, medication knowledge or non-compliance, living conditions, etc.) that warrant an admission rather than observation: Patient has what appears to be an upper GI bleeding as reflected by melena, abdominal pain and increasing lethargy. She is also on an anticoagulant for history of atrial fibrillation placing her at very high risk of worsening bleeding, worsening anemia, dyspnea, chest pain and hypotension. Given this patient's advanced age and multiple medical comorbidities I feel she is at high risk of mortality. I do not feel she is capable of outpatient management and would likely return in worse clinical condition. I feel she requires hospitalization for close clinical monitoring of vital signs H&H and physical examination. GI consultation should be obtained for the possibility of pain and endoscopy. Patient should be transfused as indicated based on H&H or signs and symptoms. She should also be treated with a proton pump inhibitor and investigative for H pylori. I feel she will require a multiple day hospitalization. Critical Care Note Critical Care Note Critical Care Time: 30-74 min
--- NOTE | 2016-08-24 21:44 | NUR ---
PT WITH SMALL AMOUNT DARK LOOSE STOOL, GUIAC POSITIVE
[2016-08-24 22:27] LABS: ABSOLUTE BASOPHIL COUNT 0 /CUMM (0.0-0.2); ABSOLUTE EOSINOPHIL COUNT 0.3 /CUMM (0.0-0.7); ABSOLUTE GRANULOCYTE CT 5.7 /CUMM (1.4-6.5); ABSOLUTE LYMPH COUNT 2.6 /CUMM (1.2-3.4); ABSOLUTE MONOCYTE COUNT 0.7 /CUMM (0.10-0.60); BASOPHIL % 0.4 % (0.0-2.0); EOSINOPHIL % 3.7 % (0-5); MEAN CORPUSCULAR HGB 29.8 PG (27.0-31.0); MEAN CORPUSCULAR HGB CONC 33.5 G/DL (33.0-37.0); MEAN PLATELET VOLUME 10.5 FL (7.4-10.4); RBC DISTRIBUTION WIDTH 14.3 % (11.5-14.5); RED BLOOD CELL CT 2.58 /CUMM (4.20-5.40); WHITE BLOOD CELL COUNT 9.3 /CUMM (4.8-10.8)
[2016-08-24 22:30] LABS: PLATELET COUNT 273 /CUMM (130-400)
[2016-08-24 22:36] LABS: PT 19.6 SEC (9.4-12.5); PTT 34 SEC (25-37)
--- NOTE | 2016-08-24 23:37 | NUR ---
ASSUMED CARE OF THIS PATIENT. INTRODUCED SELF TO PT AND DAUGHTER WHO HAS MANY QUESTIONS REGARDING CARE. EDUCATED ON PROCESS AND PLAN FOR MONITORING OF VITAL SIGNS AND BLOODWORK LEVELS TO DETERMINE CLINICAL INDICATION FOR FURTHER INTERVENTIONS SUCH BLOOD TRANSFUSION. D51/2NS GTT TO #20RF AT 150ML/HOUR PER ORDER. PT REMAINS NORMOTENSIVE, NORMAL SINUS RATE 60'S WITHOUT ECTOPY. REMAINS AAOX3, ABLE TO ANSWER QUESTIONS, THOUGH HAS SLOW ARTICULATION OF THOUGHT. ABO CONFIRMATION DRAWN BY MST PATRIA
--- NOTE | 2016-08-25 00:34 | NUR ---
PT'S ASSIGNMENT 104
--- NOTE | 2016-08-25 00:34 | NUR ---
PT INCONTINENT OF URINE AND SMALL AMOUNT OF LOOSE DARK STOOL. PERICARE PROVIDED AND SKIN APPEARS SLIGHTLY RED BUT INTACT. 16FR METERED JAIME INSERTED FOR INPUT/OUTPUT MONITORING AND 175ML CLEAR YELLOW OUTPUT NOTED ON INSERTION. PT REMAINS STABLE, MENTATING APPROPRIATELY, AND TO CT VIA STRETCHER FOR CT ABD
--- NOTE | 2016-08-25 00:48 | NUR ---
LAB REPORTED TO MARIE PA THAT AN ANTIBODY WAS DETECTED DURING TYPE/SC/CROSSMATCH AND BLOOD TRANSFUSION MAY BE DELAYED. LAB WILL INFORM RN WHEN IT WILL BE READY
--- NOTE | 2016-08-25 00:52 | Admission Certification ---
Admission Certification Certification Statement - As attending physician, I certify that at the time of - admission, based on clinical presentation, severity of - symptoms, need for further diagnostic testing and - therapeutic interventions, and risk of adverse outcomes - without in-hospital treatment, in my clinical assessment, - this patient requires an acute hospital stay for a minimum - of two nights or longer. I have also considered psychsocial - factors such as support system, advanced age, financial - issues, cognitive issues, and failed out-patient treatments, - past re-admission history, safety of patient, and lack of - compliance as applicable. Specific rationale supporting this admission is: Acute blood loss anemia, upper GI bleed requiring ICU level of care.
--- NOTE | 2016-08-25 00:59 | NUR ---
URINE TRIO SENT FROM JAIME
--- NOTE | 2016-08-25 01:06 | NUR ---
REPORT GIVEN TO RECEIVING RN
--- NOTE | 2016-08-25 01:30 | NUR ---
85 YEAR OLD PATIENT ADMITTED TO 104 VIA STRETCHER FROM ER.ALERT AND CONVERSING FREEELY. ORIENTED TO PERSON AND PLACE,UNABLE TO TELL THE DATE. PUPILS EQUAL. PARALYSIS L ARM AND LEG FROM PREVIOUS CVA. MOVES R ARM FREELY,R LEG WEAKLY. MONITOR SINUS RHYTHM WITH 1ST DEGREE BLOCK AT RATE OF 63. WN=494/60. IVF OF D51/2 NS INFUSING AT 150 ML/HR. IVF CHANGED TO NS AT 75 ML/HR.PT HAS PRE-HOSPITAL PEG TUBE.PT STATES SHE DOES EAT,BUT ON INITIAL NOTE FROM ER PATIENT HAD BEEN GETTING HER NUTRITION FROM PEG TUBE.CLEANSED OF SMALL SMEAR OF BLACK STOOL.JAIME CATHETER DRAINING CLEAR YELLOW URINE.H/H FROM ER 7.7 AND 23.LAB WILL NOTIFY WHEN BLOOD IS READY FOR TRANSFUSION. NOTIFIED OF DELAY DUE TO ANTIBOTIES.
--- NOTE | 2016-08-25 01:49 | CT SCAN REPORT ---
EXAMINATION: CT ABDOMEN AND PELVIS WITHOUT CONTRAST CLINICAL INFORMATION: Persistent black tarry diarrhea COMPARISON: 05/29/2015 TECHNIQUE: Multidetector volumetric imaging was performed from the superior aspect of the liver through the pubic symphysis. Sagittal and coronal reformatted images were obtained on the technologist's workstation. DLP: 992.93 mGy-cm FINDINGS: LUNG BASES: The visualized lung bases are unremarkable. LIVER, GALLBLADDER, AND BILIARY TREE: The liver is normal in size, shape, and attenuation. Tiny right hepatic lobe calcification is noted. No biliary ductal dilatation is present. The gallbladder is unremarkable with no evidence of radiopaque gallstones, gallbladder wall thickening, or obvious pericholecystic inflammatory changes. PANCREAS: Partial fatty atrophy is noted. SPLEEN: Unremarkable. ADRENAL GLANDS: Unremarkable. KIDNEYS AND URETERS: The kidneys are normal in size, shape, and attenuation. There is redemonstration of small bilateral hypoattenuating renal lesions, favoring cysts. No hydronephrosis, hydroureter, or calculi seen. No perinephric stranding. BLADDER: Decompressed with a Arredondo catheter. GASTROINTESTINAL TRACT: A percutaneous gastrostomy tube is present. No evidence of bowel obstruction. The rectum is dilated and filled with stool. Associated rectal wall thickening is present with surrounding stranding; overall appearance is suspicious for stercoral colitis. There is moderate stool within the remainder of the colon. Scattered colonic diverticulosis is present without convincing evidence for diverticulitis. The appendix is not well seen and may be collapsed. No free fluid or free air is seen. ABDOMINAL WALL: No significant hernia is appreciated. LYMPH NODES: Normal. VASCULAR: There is atherosclerotic calcification along the aorta and iliac arteries. PELVIC VISCERA: The uterine fundus is enlarged, and the portion contains coarse calcifications. Appearance favors underlying fibroids. OSSEOUS STRUCTURES: Neck or degenerative IMPRESSION: 1. Dilated rectum containing stool with associated wall thickening and surrounding stranding. Overall appearance is suspicious for stercoral colitis. 2. Scattered colonic diverticulosis. 3. Partially calcified uterine fibroids.
--- NOTE | 2016-08-25 02:10 | History & Physical ---
RUBEN STEELE 08/25/16 0157: General Information and HPI MD Statement: I have seen and personally examined CHAMP LANDAVERDE and documented this H&P. The patient is a 85 year old F who presented with a patient's daughter stated chief complaint of decreased oral intake and lethargy. Source of Information: patient, family Exam Limitations: patient's age, clinical condition, confusion, poor historian History of Present Illness: Ms. Landaverde is a 85-year-old woman with past medical history significant for poorly controlled hypertension, dyslipidemia, renal artery stenosis and paroxysmal atrial flutter on Eliquis. In December 2015, patient suffered a stroke with left-sided paralysis, following which she developed difficulty swallowing and hence G-tube was placed. Following that, reportedly patient's swallowing improved and her G-tube use was minimal. Patient then had multiple admissions to [facility] ED, once for fecal impaction and another time for an episode of unresponsiveness. Today, the patient was brought into the ED by her daughter after she found her not having enough oral intake, developing persistent diarrhea which she reported as dark and loose. She reported no fevers or chills. History of ulcers and gastritis, EGD 01/05/16. No recent NSAID intake, although the patient has been complaining of headache for last 2 days. The patient continues to be on Eliquis for her paroxysmal atrial flutter. Of note, patient' s dose of Eliquis was decreased to 2.5 mg twice a day following an episode of vaginal bleeding earlier this year. The dose was readjusted to 5 minutes twice a day during the last admission reportedly. No lightheadedness or dizziness. The patient's primarily bedbound and minimally mobile. No chest pain, shortness of breath or palpitations. Patient's daughter reports well controlled blood pressure readings at home, ranging 130 to 140 systolic and 60-70 diastolic. Reports good compliance. Poor oral intake and lethargy for last several days. Patient lives at home and is taken care by a 24 hour clinical nursing professor. Allergies/Medications Allergies: Coded Allergies: NO KNOWN ALLERGIES (05/29/15) Home Med list Apixaban (Eliquis) 5 MG TABLET 5 MG PO BID a fib Aspirin (Lo-Dose Aspirin EC) 81 MG TABLET. 1 TAB PO MoTuFr HEART/BLOOD ( Reported) Atorvastatin Calcium 80 MG TABLET 1 TAB PO 1700 HLD (Reported) Chlorhexidine Gluconate (Periogard) 0.12 % MOUTHWASH 15 ML PO MoWeFr GUMS ( Reported) Ferrous Sulfate (IRON) 325 MG (65 MG IRON) TABLET 1 TAB PO DAILY SUPPLEMENT ( Reported) Gabapentin 100 MG CAPSULE 2 CAP PO BID NEUROPATHIC PAIN (Reported) Hydralazine HCl 25 MG TABLET 100 MG PO BID high blood pressure Insulin Aspart (Novolog) 100 UNIT/ML VIAL 0 UNITS SC TIDAC diabetes 80 - 150 0 units 151 - 200 1 unit 201 - 250 2 units 251 - 300 3 units 301 - 350 4 units 351 - 400 6 units > 400 8 units and call Insulin Detemir (Levemir) 100 UNIT/ML VIAL 10 UNITS SC AT BEDTIME diabetes Insulin Detemir (Levemir) 100 UNIT/ML VIAL 10 UNITS SC BID DIABETES Lansoprazole (Prevacid) 30 MG TAB.RAP.DR 1 TAB PO DAILY GI (Reported) Losartan Potassium 50 MG TABLET 1 TAB PO BID HEART/BP (Reported) Multivitamin (Multi-Day Vitamins) 1 EACH TABLET 1 TAB PO DAILY SUPPLEMENT ( Reported) Tamsulosin HCl 0.4 MG CAP.ER.24H 1 CAP PO AT BEDTIME (Reported) Past History Travel History Traveled to [place] past 21 day No Medical History Neurological: CVA EENT: cataracts, epistaxis Cardiovascular: AFIB, hypertension, hyperlipidemia, varicose veins Respiratory: pulmonary embolism, pulmonary edema Gastrointestinal: ACID REFLUX Hepatic: NONE Renal: RENAL ARTERY STENOSIS Musculoskeletal: chronic back pain, disk herniation, osteoarthritis, Back surgery Psychiatric: NONE Endocrine: DM Blood Disorders: NONE Cancer(s): NONE ECONOMICS LECTURER/Reproductive: fibroid, UTERINE FIBROIDS History of MRSA: No History of VRE: No History of CDIFF: No Surgical History Surgical History: BACK SURGERY Past Family/Social History Family History Relations & Conditions if any BROTHER (unknown). MOTHER ( unknown medical hx). . Psychosocial History Who Do You Live With? child Services at Home: Home Health Aide, Nursing Primary Language: Georgian ETOH Use: denies use Illicit Drug Use: denies illicit drug use Functional Ability ADLs Needs Assist: dressing, eating, toileting, bathing. Ambulation: cane, walker IADLs Needs Assist: shopping, housework, finances, food prep, telephone, transportation, medication admin. Review of Systems Review of Systems Constitutional: Reports: see HPI. Exam & Diagnostic Data Last 24 Hrs of Vital Signs/I&O Vital Signs Date Time Temp Pulse Resp B/P B/P Pulse O2 O2 Flow FiO2 Mean Ox Delivery Rate 08/25 0033 97.8 66 16 162/66 96 Room Air 08/24 2334 97.2 68 16 145/65 95 Room Air 08/24 2111 99 Room Air 08/24 2046 96.9 63 16 147/66 99 Room Air Intake & Output 08/25 0800 08/25 0000 08/24 1600 Intake Total 150 250 Output Total 175 Balance -25 250 Intake, IV 150 250 Output, Urine 175 Patient 180 lb Weight Physical Exam General Appearance Alert, Cooperative, No Acute Distress HEENT Atraumatic, PERRLA, mucous membranes dry. Neck Supple, No JVD Cardiovascular Regular Rate, Normal S1, Normal S2 Lungs Clear to Auscultation, Normal Air Movement Abdomen Normal Bowel Sounds, Soft, tenderness to deep palpation right lower quadrant. Extremities No Clubbing, No Cyanosis, No Edema Last 24 Hrs of Labs/Klaus: Laboratory Tests 08/25/1657: Urine Color YEL, Urine Clarity CLEAR, Urine pH 6.0, Ur Specific [place] <= 1.005 , Urine Protein NEG, Urine Ketones NEG, Urine Nitrite NEG, Urine Bilirubin NEG, Urine Urobilinogen 0.2, Ur Leukocyte Esterase NEG, Ur Microscopic EXAM NOT REQUIRED, Urine Hemoglobin NEG, Urine Glucose NEG 08/24/16 2210: Anion Gap 11, Estimated GFR 59 L, BUN/Creatinine Ratio 42.2 H, Glucose 75, Calcium 9.7, Total Bilirubin 0.6, AST 30, ALT 42, Alkaline Phosphatase 229 H, Total Protein 6.2 L, Albumin 3.3 L, Globulin 2.9, Albumin/Globulin Ratio 1.1, PT 19.6 H, INR 1.88 H, APTT 34, CBC w Diff NO MAN DIFF REQ, RBC 2.58 L, MCV 89.0, MCH 29.8, RDW 14.3, MPV 10.5 H, Gran % 61.0, Lymphocytes % 27.9, Monocytes % 7.0, Eosinophils % 3.7, Basophils % 0.4, Absolute Granulocytes 5.7, Absolute Lymphocytes 2.6, Absolute Monocytes 0.7 H, Absolute Eosinophils 0.3, Absolute Basophils 0, PUBS MCHC 33.5 Microbiology 08/25 57 URINE ROUT: Urine Culture - RECD 08/25 44 UPPER RESP: Surveillance Culture - ORD 08/25 44 GI: Surveillance Culture - ORD Diagnostic Data Other Results CT abdomen pelvis IMPRESSION: 1. Dilated rectum containing stool with associated wall thickening and surrounding stranding. Overall appearance is suspicious for stercoral colitis. 2. Scattered colonic diverticulosis. 3. Partially calcified uterine fibroids. Assessment/Plan Assessment: 85-year-old woman with past medical history of atrial flutter on anticoagulation with Eliquis presents to [facility] ED with decreased oral intake, worsening lethargy in the setting of persistent black tarry stools of one-week duration. H&H 7.7 and 23, BUN 38. Previous EGD, 01/05/16: * Esophagitis * Erosive gastritis with shallow antral ulcerations * Placement of gastrostomy tube Current admission: Luther-Blatchford score = 11, high risk category needs ICU admission and tranfusion/endoscopy. Rockall score: Intermediate risk. 1. Acute blood loss anemia: Possible upper GI bleed. Hold Eliquis and aspirin. Type and screen. 2 large-bore IVs. Monitor hemodynamics closely. PRBC 1 keep hemoglobin greater than 8. Nothing by mouth, possible upper endoscopic in a.m.. IV Protonix twice a day. GI consult. Hold antihypertensives. *The effect of Eliquis will be present for at least a day after discontinuation. However, discontinuing in the absence of adequate alternative anticoagulation after day will increase the risk of thrombotic events. Notify cardiology while holding Eliquis. 2. Lethargy: Infection unlikely, given absence of fever and leukocytosis. Her lethargy likely represents fluid depletion in the setting of persistent diarrhea and secondary to acute blood loss anemia. Careful hydration normal saline, given impaired LV relaxation and left ventricular hypertrophy. PRBC 1, goal hematocrit 24%. 3. History of Hypertension: Hold all hypertensives. 4. Diabetes mellitus: Accu-Cheks every 6 hours when nothing by mouth. Novolin R nothing by mouth scale while nothing by mouth. Resume Levemir and insulin at home doses went on diet. Full code. Mechanical VTE prophylaxis. Nothing by mouth. As Ranked By This Provider Problem List: 1. Abdominal pain Core Measures/Miscellaneous Acute Coronary Syndrome ACS Diagnosis: No Cerebrovascular Accident CVA/TIA Diagnosis: No Congestive Heart Failure CHF Diagnosis: No VTE (View Protocol) VTE Risk Factors: Acute medical illness, Age > 40, Immobility, paresis [facility] d/t: No contraindications No VTE Pharm Prophylaxis d/t: No contraindications VTE Diagnosis: No VTE Type: NONE VTE Confirmed by (Test): NONE Sepsis (View Protocol) Severe Sepsis Present: No Septic Shock Septic Shock Present: No Miscellaneous Documentation Attending [facility] Primary Care Physician: RAMBO SNIDER MD Patient sees these Specialists Dr. Anthony Level of Patient Care: Telemetry LYNN CONNELL MD 08/25/16 0358: Attending MD Review Statement Attending Statement Attending MD Statement: examined this patient, discuss w/resident/PA/OIL BAY TECHNICIAN, agreed w/resident/PA/OIL BAY TECHNICIAN, discussed with family Attending Assessment/Plan: 85 yo F with h/o paroxysmal atrial flutter on eliquis, HTN, ENEDINA, CVA with residual left sided weakness and dysphagia s/p G-tube but now able to tolerate PO, recently admitted July 2016 for unresponsiveness 2/2 hypoglycemia, is brought in by daughter for c/o poor PO intake, right sided abdominal discomfort and black/dark loose stools. Daughter thought the stools are dark due to iron supplementation. Daughter was away at [place] and returned August 14 and has noticed significant decline in patient's condition since. Last EGD (Dec 2015): esophagitis, erosive gastritis with shallow antral ulcerations, G-tube was placed. Not sure if she has had a colonoscopy. No excessive NSAID use. Patient denies heartburn, nausea, vomiting or BRBPR/hematochezia. She denies CP, palpitations, lightheadedness or dyspnea. VSS. Exam: AAO, dry mucous membranes, Abdo: soft, RLQ tenderness, BS+, G-tube site C/D/I. Rectal exam: melena as per ER physician. Labs: H/H 7.7/23 (-02/10- 35), INR 1.88, bicarb 21, BUN 38, UA clear. 1. Acute blood loss anemia, possible UGIB. ICU admit, vitals Q1, type and crossmatch, transfuse 2 units PRBC, guaiac all stools, hold aspirin and eliquis, IV PPI 40 mg BID, GI consult (Dr. Harris aware), NPO, IV fluids, possible EGD in AM. Avoid NSAIDs. Check CBC BID. Keep Hb > 8.0. Please check an EKG and troponin. Inform Cardiology service since we are holding off Eliquis. Patient's daughter was concerned about bowel obstruction and wished to obtain a CT abdomen. CT shows dilated rectum with associated wall thicking and stranding likely stercoral colitis, scattered diverticulosis, no bowel obstruction. 2. HTN. Resume BP meds as tolerated in AM. DVT ppx Alps. Full code. Please note, we ordered PRBC for the patient, but she has not received it yet, as type and crossmatch is pending due to antibody reaction. TTS > 55 mins
[2016-08-25 05:30] LABS: ABSOLUTE BASOPHIL COUNT 0 /CUMM (0.0-0.2); ABSOLUTE EOSINOPHIL COUNT 0.3 /CUMM (0.0-0.7); ABSOLUTE GRANULOCYTE CT 4.4 /CUMM (1.4-6.5); ABSOLUTE LYMPH COUNT 2.8 /CUMM (1.2-3.4); ABSOLUTE MONOCYTE COUNT 0.6 /CUMM (0.10-0.60); BASOPHIL % 0.6 % (0.0-2.0); EOSINOPHIL % 4.1 % (0-5); GRANULOCYTE % 53.3 % (42.2-75.2); HEMATOCRIT 20.7 % (37-47); MEAN CORPUSCULAR HGB 29.9 PG (27.0-31.0); MEAN CORPUSCULAR HGB CONC 33.3 G/DL (33.0-37.0); MEAN CORPUSCULAR VOLUME 89.9 FL (81.0-99.0); MEAN PLATELET VOLUME 10.2 FL (7.4-10.4); PLATELET COUNT 222 /CUMM (130-400); RBC DISTRIBUTION WIDTH 14.7 % (11.5-14.5); RED BLOOD CELL CT 2.31 /CUMM (4.20-5.40); WHITE BLOOD CELL COUNT 8.2 /CUMM (4.8-10.8)
[2016-08-25 08:00] VITALS: BP 118/50
--- NOTE | 2016-08-25 08:24 | Cons- CRCU ---
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 Reported to have improvement in her dysphagia requiring minimal use of the PEG tube ( No active bleeding or drainage from the PEG tube reported). Last EGD done in 01/05/2016 for PEG tube placement, was only remarkable for esophagitis, and erosive gastritis with shallow antral ulcerations. Pt daughter also reports that her apixaban dose was previously decreased to 2.5 twice a day due to vaginal bleed that was thought to be secondary to uterine fibroids. The dose was later increased back to 5 mg twice a day. Allergies/Medications Allergies: Coded Allergies: NO KNOWN ALLERGIES (05/29/15) Home Med List: Apixaban (Eliquis) 5 MG TABLET 5 MG PO BID a fib Aspirin (Lo-Dose Aspirin EC) 81 MG TABLET. 1 TAB PO MoTuFr HEART/BLOOD ( Reported) Atorvastatin Calcium 80 MG TABLET 1 TAB PO 1700 HLD (Reported) Chlorhexidine Gluconate (Periogard) 0.12 % MOUTHWASH 15 ML PO MoWeFr GUMS ( Reported) Ferrous Sulfate (IRON) 325 MG (65 MG IRON) TABLET 1 TAB PO DAILY SUPPLEMENT ( Reported) Gabapentin 100 MG CAPSULE 2 CAP PO BID NEUROPATHIC PAIN (Reported) Hydralazine HCl 25 MG TABLET 100 MG PO BID high blood pressure Insulin Aspart (Novolog) 100 UNIT/ML VIAL 0 UNITS SC TIDAC diabetes 80 - 150 0 units 151 - 200 1 unit 201 - 250 2 units 251 - 300 3 units 301 - 350 4 units 351 - 400 6 units > 400 8 units and call Insulin Detemir (Levemir) 100 UNIT/ML VIAL 10 UNITS SC AT BEDTIME diabetes Insulin Detemir (Levemir) 100 UNIT/ML VIAL 10 UNITS SC BID DIABETES Lansoprazole (Prevacid) 30 MG TAB.RAP.DR 1 TAB PO DAILY GI (Reported) Losartan Potassium 50 MG TABLET 1 TAB PO BID HEART/BP (Reported) Multivitamin (Multi-Day Vitamins) 1 EACH TABLET 1 TAB PO DAILY SUPPLEMENT ( Reported) Tamsulosin HCl 0.4 MG CAP.ER.24H 1 CAP PO AT BEDTIME (Reported) Current Medications: Current Medications Sig/Renee Start time Last Medication Dose Route Stop Time Status Admin Dextrose/Sodium 1,000 ML Q6H 08/24 2315 DC 08/24 Chloride IV 2330 Insulin Human Regular 0 Q6 08/25 0600 AC 08/25 SC 0617 Pantoprazole Sodium 40 MG BID 08/25 1000 AC 08/25 IV 0852 Pantoprazole Sodium 0 .STK-MED ONE 08/24 2202 DC IV Pantoprazole Sodium 40 MG ONCE ONE 08/24 2145 DC 08/24 Dextrose/Water 100 ML IV 08/24 2214 2210 Potassium Chloride 10 MEQ Q1H 08/25 0945 DC 08/25 IV 08/25 1146 1109 Sodium Chloride 1,000 ML .[id number] 08/25 0030 AC 08/25 IV 08/26 1629 0245 Review of Systems Review of Systems Constitutional: Reports: weakness. EENTM: Reports: no symptoms. Cardiovascular: Reports: no symptoms. Respiratory: Reports: no symptoms. GI: Reports: diarrhea, bloody stool. Genitourinary: Reports: no symptoms. Musculoskeletal: Reports: no symptoms. Skin: Reports: no symptoms. Neurological/Psychological: Denies: anxiety, confusion, depressed. Hematologic/Endocrine: Reports: no symptoms. 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 MOTHER ( unknown medical hx). . Psychosocial History Where Do You Live? Home Who Do You Live With? child Services at Home: Home Health Aide, Nursing Primary Language: Croatian Smoking Status: Never Smoked ETOH Use: denies use Illicit Drug Use: denies illicit drug use Functional Ability ADLs Needs Assist: dressing, eating, toileting, bathing. Ambulation: cane, walker IADLs Needs Assist: shopping, housework, finances, food prep, telephone, transportation, medication admin. Exam & Diagnostic Data Last 24 Hrs of Vital Signs/I&O Vital Signs Date Time Temp Pulse Resp B/P B/P Pulse O2 O2 Flow FiO2 Mean Ox Delivery Rate 08/25 08 97.5 57 20 118/50 98 Room Air 08/25 0400 96 Room Air 08/25 0300 99 Room Air 08/25 0033 97.8 66 16 162/66 96 Room Air 08/24 2334 97.2 68 16 145/65 95 Room Air 08/24 2111 99 Room Air 08/24 2046 96.9 63 16 147/66 99 Room Air Intake & Output 08/25 1600 08/25 0800 08/25 0000 Intake Total 564 250 Output Total 490 Balance 74 250 Intake, IV 564 250 Output, Urine 490 Patient 74.843 kg 81.647 kg Weight Weight Bed scale Measurement Method Physical Exam General Appearance: alert, awake, orineted to place and person Other Physical Findings: HEENT Atraumatic, PERRLA, mucous membranes dry. Neck Supple, No JVD Cardiovascular Regular Rate, Normal S1, Normal S2 Lungs Clear to Auscultation, Normal Air Movement Abdomen Normal Bowel Sounds, Soft, tenderness to deep palpation right lower quadrant. Extremities No Clubbing, No Cyanosis, No Edema Last 48 Hrs of Labs/Klaus: Laboratory Tests 08/25/16 0600: Sodium Cancelled, Potassium Cancelled, Chloride Cancelled, Carbon Dioxide Cancelled, Anion Gap Cancelled, BUN Cancelled, Creatinine Cancelled, Glucose Cancelled, Calcium Cancelled, Phosphorus Cancelled, Magnesium Cancelled, Total Bilirubin Cancelled, AST Cancelled, ALT Cancelled, Albumin Cancelled 08/25/16 0500: Anion Gap 7, Estimated GFR 59 L, Glucose 145 H, Calcium 8.9, Phosphorus 3.7, Magnesium 2.0, Total Bilirubin 0.6, AST 25, ALT 36, Troponin I < 0.01, Albumin 2.6 L, CBC w Diff NO MAN DIFF REQ, RBC 2.31 L, MCV 89.9, MCH 29.9, RDW 14.7 H , MPV 10.2, Gran % 53.3, Lymphocytes % 34.7, Monocytes % 7.3, Eosinophils % 4.1, Basophils % 0.6, Absolute Granulocytes 4.4, Absolute Lymphocytes 2.8, Absolute Monocytes 0.6, Absolute Eosinophils 0.3, Absolute Basophils 0, PUBS MCHC 33.3 08/25/16 0058: Urine Color YEL, Urine Clarity CLEAR, Urine pH 6.0, Ur Specific [place] <= 1.005 , Urine Protein NEG, Urine Ketones NEG, Urine Nitrite NEG, Urine Bilirubin NEG, Urine Urobilinogen 0.2, Ur Leukocyte Esterase NEG, Ur Microscopic EXAM NOT REQUIRED, Urine Hemoglobin NEG, Urine Glucose NEG 08/24/16 2210: Anion Gap 11, Estimated GFR 59 L, BUN/Creatinine Ratio 42.2 H, Glucose 75, Calcium 9.7, Total Bilirubin 0.6, AST 30, ALT 42, Alkaline Phosphatase 229 H, Troponin I < 0.01, Total Protein 6.2 L, Albumin 3.3 L, Globulin 2.9, Albumin/ Globulin Ratio 1.1, PT 19.6 H, INR 1.88 H, APTT 34, CBC w Diff NO MAN DIFF REQ , RBC 2.58 L, MCV 89.0, MCH 29.8, RDW 14.3, MPV 10.5 H, Gran % 61.0, Lymphocytes % 27.9, Monocytes % 7.0, Eosinophils % 3.7, Basophils % 0.4, Absolute Granulocytes 5.7, Absolute Lymphocytes 2.6, Absolute Monocytes 0.7 H, Absolute Eosinophils 0.3, Absolute Basophils 0, PUBS MCHC 33.5 Diagnostic Data EKG Results sinus cindy with 1st degree heart block Assessment/Plan Impression/Plan: This is an 85-year-old lady on apixaban for PAF, aspirin therapy, poorly controlled HTN, renal stenosis presents with a 7-10 history of black stools/with some diarrhea,lethargy, and is found to have a hemoglobin of 6.9 and a Hct of 20.7. Impression * Acute on chronic symptomatic anemia. Most probably secondary to acute blood loss as patient is reported to have episodes of black tarry stool, and ED staff reports episode of melena. Blatchford-Glascow score=11, candidate for upper endoscopy. Aspirin use, episodes of black tarry stool /melena and an elevated BUN is suggestive of upper GI bleed which is precipatated by apixaban use. Patient has history of chronic anemia , most likely secondary to chronic disease anemia as evident by low iron levels, normal ferritin levels decreased total iron binding capacity. * History of hypertension * History of paroxysmal A. fib with a recent right MCA stroke in 2016. Patient has a [id number] of 8 with a 15.2% risk of stroke/TIA, requiring anticoagulation. However, her HASBLED score is 5 with a 9-12.5 % risk of bleed/ per 100 patients. * 1st degree heart block * History of right MCA residual left-sided paralysis and oropharyngeal dysphagia * History of diabetes mellitus Plan Will continue with ICU placement Continue IV NS hydration to keep MAP>65 Status post 1 unit of PRBC, second unit being transfused Will obtain CBC post transfusion with a goal of hemoglobin above 8. Will hold off Apixaban and ASA Will keep nothing by mouth pending upper endoscopy Will maintain potassium levels and magnesium levels above 4 and 2 respectively. Will await cardiology reccomendation on risk/benefit assement of anticoagulation Problem List: 1. Acute blood loss anemia Consult Acknowledgment - Thank you for your consult request. 1. Acute blood loss anemia Consult Acknowledgment - Thank you for your consult request.
--- NOTE | 2016-08-25 09:48 | Cons- Gastroenterology ---
General Information and HPI Consulting Request Date of Consult: 08/25/16 Requested By: BECKI ARORA,SARAH Reason for Consult: I was notified by the ER on behalf of the hospitalist service, 08/24/16 at 11:01 p.m., of a request for an a.m. GI consult, to assess melena & anemia in an elderly female, without active hematemesis (*Eliquis on board, elevated BUN:Cr ratio, PEG contents- clear). Source of Information: family (pt's dtr, Nhi Landaverde call), old records Exam Limitations: clinical condition (post CVA), confusion, poor historian, language barrier, physical impairment History of Present Illness: 85-year-old woman with past medical history significant for poorly controlled hypertension, DM, CVA, dyslipidemia, osteopenia, DJD, chronic back pain, right renal artery stenosis, remote PE, chronic anemia, and paroxysmal atrial flutter, on Eliquis. 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 01/05/16: *EGD with PEG placement (Cook 20 Romanian), per Dr. Rebekah Blue. She had a shallow ulceration in the distal esophagus, erythema at the GE junction, no evident hiatal hernia, linear erythema and erosions in the gastric body, and several shallow ulcerations in the antrum, along with distal antral edema and slight narrowing, with patent pylorus. Duodenum was normal. No biopsies were obtained then. The patient had never been seen as an outpatient by GI. Following the PEG, the patient's swallowing reportedly improved, and her G-tube use was minimal. She has since had multiple admissions to [facility] ED, once for fecal impaction & stercoral colitis, and another time for an episode of unresponsiveness. She has diverticulosis coli & uterine fibroid on imaging studies. There is no mention of any colonoscopy in the [facility] computer & the patient's daughter, Nhi Landaverde (contacted by phone), stated that she never had one. The patient was brought to the [facility] ER 08/24/16, arriving 8:39 p.m., BIBA from home after she was found by her daughter with decreased po intake, lethargy, & loose dark stools, diarrhea, described as melena, OB+, by Dr. Padilla, of the ER. Upon arrival, BP 147/66, P 63, T 96.9, R 16, O2 sat RA 99%. She received IVF & IV Protonix in the ER & remained normotensive. She currently is on Protonix 40 mg IV BID. In addition to the Eliquis, she was on ASA 81 mg daily, without any NSAIDS. *The PEG tubing had clear return, without blood or coffee grounds, however no bile was seen (*does not exclude a bleeding source in the pyloric channel or duodenum ). Of note, patient's dose of Eliquis was decreased to 2.5 mg twice a day following an episode of vaginal bleeding earlier this year. The dose was reportedly readjusted to 5 minutes twice a day during her last admission. There were no definite fevers or chills. The patient lives at home and is taken care of by a 24-hour licensed nursing assistant. The patient's daughter reports well controlled blood pressure readings at home, ranging 130 to 140 systolic and 60-70 diastolic. Apparently, the patient has a history of GERD, but it is difficult to get any further menaingful history from the patient, post CVA. The patient was admitted to the ICU. She is recieving her 2nd unit PRBC on 08/25/16. *The ER was initially told that the patient last took her Eliquis 10 a.m. on Friday, 08/24, but the patient's daughter, Nhi Landaverde, just told me that her last dose of Eliquis was given at 5 p.m. on 08/24/16. The patient's daughter told me that after the CVA, the patient reverted to speaking Hong Konger, but previously spoke Kenyan. *Please note, 07/23/16: WBC 7.3, H/H 7.7/23.1, MCV 88.8, RDW 16, PLT 220, BUN/Cr 18/0.9, GFR 59 08/24/16: WBC 9.3, H/H 7.7/23, MCV 89, RDW 14.3, PLT 273, PT 19.6. INR 1.88, PTT 34 (? utility on Eliquis), glucose 75, *BUN/Cr 38/0.9, GFR 59, Na 140, K 3.9, HCO3 21, AG 11, Ca 9.7. albumin 3.3, globulin 2.9, TBil 0.6, *alk phos 229 (* chronic & intermittent, dating back to 06/01/08), AST 30, ALT 42, troponin < 0.1. 08/25/16: WBC 8.2, H/H 6.9/20.7, PLT 222; glucose 145, BUN/Cr 33/0.9, GFR 59, Na 140, K 3.6, HCO3 22, AG 7, Mg 2.0, Ca 8.9, PO4 3.7, albumin 2.6, TBil 0.6, AST 25, ALT 36 08/25/16: U/A- clear, yellow, < 1.005, 6.0, micro-negative; neg nitrite, neg esterase. 08/25/16: EKG- NSR @ 63, 1st degree AV block with IA .248 (*Hx PAF with CM: afib with stable VR at the time of the 08/25/16: GI consult). 08/25/16: CT ABDOMEN AND PELVIS WITHOUT CONTRAST- 1. Dilated rectum containing stool with associated wall thickening and surrounding stranding. Overall appearance is suspicious for stercoral colitis. 2. Scattered colonic diverticulosis. 3. Partially calcified uterine fibroids. 4. PEG. Allergies/Medications Allergies: Coded Allergies: NO KNOWN ALLERGIES (05/29/15) Home Med List: Apixaban (Eliquis) 5 MG TABLET 5 MG PO BID a fib Aspirin (Lo-Dose Aspirin EC) 81 MG TABLET. 1 TAB PO MoTuFr HEART/BLOOD ( Reported) Atorvastatin Calcium 80 MG TABLET 1 TAB PO 1700 HLD (Reported) Chlorhexidine Gluconate (Periogard) 0.12 % MOUTHWASH 15 ML PO MoWeFr GUMS ( Reported) Ferrous Sulfate (IRON) 325 MG (65 MG IRON) TABLET 1 TAB PO DAILY SUPPLEMENT ( Reported) Gabapentin 100 MG CAPSULE 2 CAP PO BID NEUROPATHIC PAIN (Reported) Hydralazine HCl 25 MG TABLET 100 MG PO BID high blood pressure Insulin Aspart (Novolog) 100 UNIT/ML VIAL 0 UNITS SC TIDAC diabetes 80 - 150 0 units 151 - 200 1 unit 201 - 250 2 units 251 - 300 3 units 301 - 350 4 units 351 - 400 6 units > 400 8 units and call Insulin Detemir (Levemir) 100 UNIT/ML VIAL 10 UNITS SC AT BEDTIME diabetes Insulin Detemir (Levemir) 100 UNIT/ML VIAL 10 UNITS SC BID DIABETES Lansoprazole (Prevacid) 30 MG TAB.RAP.DR 1 TAB PO DAILY GI (Reported) Losartan Potassium 50 MG TABLET 1 TAB PO BID HEART/BP (Reported) Multivitamin (Multi-Day Vitamins) 1 EACH TABLET 1 TAB PO DAILY SUPPLEMENT ( Reported) Tamsulosin HCl 0.4 MG CAP.ER.24H 1 CAP PO AT BEDTIME (Reported) Current Medications: Current Medications Sig/Renee Start time Last Medication Dose Route Stop Time Status Admin Dextrose/Sodium 1,000 ML Q6H 08/24 2315 DC 08/24 Chloride IV 2330 Insulin Human Regular 0 Q6 08/25 0600 AC 08/25 SC 1227 Pantoprazole Sodium 40 MG BID 08/25 1000 AC 08/25 IV 0852 Pantoprazole Sodium 0 .STK-MED ONE 08/24 2202 DC IV Pantoprazole Sodium 40 MG ONCE ONE 08/24 2145 DC 08/24 Dextrose/Water 100 ML IV 08/24 2214 2210 Potassium Chloride 10 MEQ Q1H 08/25 0945 DC 08/25 IV 08/25 1146 1210 Sodium Chloride 1,000 ML .[id number] 08/25 0030 AC 08/25 IV 08/26 1629 0245 Past History Travel History Traveled to [place] past 21 day No Medical History Blood Transfusion Hx: No (not prior to this admission) Neurological: NONE (R MCA with L ben), CVA EENT: cataracts, epistaxis Cardiovascular: AFIB, hypertension, hyperlipidemia, varicose veins Respiratory: pulmonary embolism (remote), pulmonary edema Gastrointestinal: ACID REFLUX Hepatic: NONE Renal: RIGHT RENAL ARTERY STENOSIS Musculoskeletal: chronic back pain, disk herniation, osteoarthritis, Back surgery, osteopenia Psychiatric: depression (post CVA) Endocrine: DM Blood Disorders: anemia, PE (remotely- details unknown) Cancer(s): NONE 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 MOTHER (MVA). , Age 30-40; Cause: MVA (motor vehicle accident). FATHER, , Age 30-40; Cause: MVA (motor vehicle accident). Psychosocial History Where Do You Live? Home Who Do You Live With? spouse ( & dtr), child Services at Home: Home Health Aide, Nursing Primary Language: Kenyan, Hong Konger Smoking Status: Never Smoked ETOH Use: denies use Illicit Drug Use: denies illicit drug use Living Will? no Power of Robotic Technician/HCP? no (but & dtr are closest ) Other Social History: . Lives with and daughter, Nhi Landaverde, although the daughter often is out of the country for extended periods of time. She has a 24-hour health aide. 1 child (dtr- Nhi). No cigarettes, drugs, or alcohol. Born in [facility]. Lives in the [place] for the past 64 years. Completely dependent on others for care, post CVA. 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 Functional Ability ADLs Needs Assist: dressing, eating, toileting, bathing. Ambulation: cane, walker IADLs Needs Assist: shopping, housework, finances, food prep, telephone, transportation, medication admin. 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 Review of Systems Constitutional: Reports: weakness. EENTM: Denies: no symptoms (unobtainable). Cardiovascular: Denies: no symptoms (unobtainable). Respiratory: Denies: no symptoms (unobtainable). GI: Reports: diarrhea, melena. Genitourinary: Denies: no symptoms (unobtainable). Musculoskeletal: Reports: back pain (chronic). Denies: no symptoms (unobtainable). Skin: Denies: no symptoms (unobtainable). Neurological/Psychological: Reports: depressed (post CVA), weakness. Hematologic/Endocrine: Denies: no symptoms (unobtainable). Immunologic/Allergic: Denies: no symptoms (unobtainable). All Other Systems: Reviewed and Negative (otherwise unobtainable) Exam & Diagnostic Data Vital Signs and I&O Vital Signs Date Time Temp Pulse Resp B/P B/P Pulse O2 O2 Flow FiO2 Mean Ox Delivery Rate 08/25 0800 97.5 57 20 118/50 98 Room Air 08/25 0400 96 Room Air 08/25 0300 99 Room Air 08/25 0033 97.8 66 16 162/66 96 Room Air 08/24 2334 97.2 68 16 145/65 95 Room Air 08/24 2111 99 Room Air 08/24 2046 96.9 63 16 147/66 99 Room Air Intake & Output 08/25 1600 08/25 0400 08/24 1600 08/24 0400 08/23 1600 08/23 0400 Intake Total 414 400 Output Total 315 175 Balance 99 225 Intake, IV 414 400 Output, Urine 315 175 Patient 165 lb Weight Weight Bed scale Measurement Method Physical Exam: Well-developed, slightly malnourished, elderly female, in no apparent distress. The patient was trying to talk, but it was very difficult for her to communicate , post CVA (? Hong Konger). Sclera anicteric. Conjunctiva pale. Oropharynx clear. Dry mucus membranes. There is no adenopathy, thyromegaly, or JVD. No peripheral stigmata of inflammatory bowel disease or chronic liver disease on exam. No spiders on the anterior chest wall. No CVA tenderness. Breast & pelvic exams: API. Lungs: clear to A&P. Heart exam: irregularly irregular rate rhythm, S1 and S2, without any murmur. Abdominal exam: normal bowel sounds, soft belly, nontender, without guarding or rebound. PEG site in upper abdomen to the left of the midline, clean without pus or fasciitis. PEG tubing with clear return (no blood or bile). No mass. No organomegaly. No fluid shift. No pulsatile mass. Digital rectal exam: per Dr. Padilla, of [facility] 08/24/16: melena, OB+ stool. Extremities: without C, C, or E. No palpable cords. Distal pulses 1+ bilaterally. DTRs 2+ on right, 3+ on left. Post right MCA CVA with left hemiplegia (LUE flaccid) & mild right gaze preference. Motor intact on right. Somewhat alert, but difficult to assess orientation. Gag reflex present, but slightly diminished. Results Pertinent Lab Results: Laboratory Tests 08/25 08/25 0600 0500 Chemistry Sodium (137 - 145 mmol/L) Cancelled 140 Potassium (3.5 - 5.1 mmol/L) Cancelled 3.6 Chloride (98 - 107 mmol/L) Cancelled 112 H Carbon Dioxide (22 - 30 mmol/L) Cancelled 22 Anion Gap (5 - 16) Cancelled 7 BUN (7 - 17 mg/dL) Cancelled 33 H Creatinine (0.5 - 1.0 mg/dL) Cancelled 0.9 Estimated GFR (>60 ml/min) 59 L Glucose (65 - 99 mg/dL) Cancelled 145 H Calcium (8.4 - 10.2 mg/dL) Cancelled 8.9 Phosphorus (2.5 - 4.5 mg/dL) Cancelled 3.7 Magnesium (1.6 - 2.3 mg/dL) Cancelled 2.0 Total Bilirubin (0.2 - 1.3 mg/dL) Cancelled 0.6 AST (14 - 36 U/L) Cancelled 25 ALT (9 - 52 U/L) Cancelled 36 Troponin I (< 0.11 ng/ml) < 0.01 Albumin (3.5 - 5.0 g/dL) Cancelled 2.6 L Hematology CBC w Diff NO MAN DIFF REQ WBC (4.8 - 10.8 /CUMM) 8.2 RBC (4.20 - 5.40 /CUMM) 2.31 L Hgb (12.0 - 16.0 G/DL) 6.9 *L Hct (37 - 47 %) 20.7 L MCV (81.0 - 99.0 FL) 89.9 MCH (27.0 - 31.0 PG) 29.9 RDW (11.5 - 14.5 %) 14.7 H Plt Count (130 - 400 /CUMM) 222 MPV (7.4 - 10.4 FL) 10.2 Gran % (42.2 - 75.2 %) 53.3 Lymphocytes % (20.5 - 51.1 %) 34.7 Monocytes % (1.7 - 9.3 %) 7.3 Eosinophils % (0 - 5 %) 4.1 Basophils % (0.0 - 2.0 %) 0.6 Absolute Granulocytes (1.4 - 6.5 /CUMM) 4.4 Absolute Lymphocytes (1.2 - 3.4 /CUMM) 2.8 Absolute Monocytes (0.10 - 0.60 /CUMM) 0.6 Absolute Eosinophils (0.0 - 0.7 /CUMM) 0.3 Absolute Basophils (0.0 - 0.2 /CUMM) 0 PUBS MCHC (33.0 - 37.0 G/DL) 33.3 08/25 08/24 0058 2210 Chemistry Sodium (137 - 145 mmol/L) 140 Potassium (3.5 - 5.1 mmol/L) 3.9 Chloride (98 - 107 mmol/L) 108 H Carbon Dioxide (22 - 30 mmol/L) 21 L Anion Gap (5 - 16) 11 BUN (7 - 17 mg/dL) 38 H Creatinine (0.5 - 1.0 mg/dL) 0.9 Estimated GFR (>60 ml/min) 59 L BUN/Creatinine Ratio (7 - 25 %) 42.2 H Glucose (65 - 99 mg/dL) 75 Calcium (8.4 - 10.2 mg/dL) 9.7 Total Bilirubin (0.2 - 1.3 mg/dL) 0.6 AST (14 - 36 U/L) 30 ALT (9 - 52 U/L) 42 Alkaline Phosphatase (<127 U/L) 229 H Troponin I (< 0.11 ng/ml) < 0.01 Total Protein (6.3 - 8.2 g/dL) 6.2 L Albumin (3.5 - 5.0 g/dL) 3.3 L Globulin (1.9 - 4.2 gm/dL) 2.9 Albumin/Globulin Ratio (1.1 - 2.2 %) 1.1 Coagulation PT (9.4 - 12.5 SEC) 19.6 H INR (0.90 - 1.19) 1.88 H APTT (25 - 37 SEC) 34 Hematology CBC w Diff NO MAN DIFF REQ WBC (4.8 - 10.8 /CUMM) 9.3 RBC (4.20 - 5.40 /CUMM) 2.58 L Hgb (12.0 - 16.0 G/DL) 7.7 L Hct (37 - 47 %) 23.0 L MCV (81.0 - 99.0 FL) 89.0 MCH (27.0 - 31.0 PG) 29.8 RDW (11.5 - 14.5 %) 14.3 Plt Count (130 - 400 /CUMM) 273 MPV (7.4 - 10.4 FL) 10.5 H Gran % (42.2 - 75.2 %) 61.0 Lymphocytes % (20.5 - 51.1 %) 27.9 Monocytes % (1.7 - 9.3 %) 7.0 Eosinophils % (0 - 5 %) 3.7 Basophils % (0.0 - 2.0 %) 0.4 Absolute Granulocytes (1.4 - 6.5 /CUMM) 5.7 Absolute Lymphocytes (1.2 - 3.4 /CUMM) 2.6 Absolute Monocytes (0.10 - 0.60 /CUMM) 0.7 H Absolute Eosinophils (0.0 - 0.7 /CUMM) 0.3 Absolute Basophils (0.0 - 0.2 /CUMM) 0 PUBS MCHC (33.0 - 37.0 G/DL) 33.5 Urines Urine Color (YEL,AMB,STR) YEL Urine Clarity (CLEAR) CLEAR Urine pH (5.0 - 8.0) 6.0 Ur Specific [place] (1.001 - 1.035) <= 1.005 Urine Protein (NEG,<30 MG/DL) NEG Urine Ketones (NEG) NEG Urine Nitrite (NEG) NEG Urine Bilirubin (NEG) NEG Urine Urobilinogen (0.1 - 1.0 EU/dl) 0.2 Ur Leukocyte Esterase (NEG) NEG Ur Microscopic EXAM NOT REQUIRED Urine Hemoglobin (NEG) NEG Urine Glucose (N MG/DL) NEG Imaging/Other Studies: 08/25/16: EKG- NSR @ 63, 1st degree AV block with IA .248 (Hx PAF with CM: afib with stable VR at the time of the initial GI consult). 08/25/16: CT ABDOMEN AND PELVIS WITHOUT CONTRAST- 1. Dilated rectum containing stool with associated wall thickening and surrounding stranding. Overall appearance is suspicious for stercoral colitis. 2. Scattered colonic diverticulosis. 3. Partially calcified uterine fibroids. 4. PEG. Assessment/Plan Assessment/Recommendations: 85-year-old woman with past medical history significant for poorly controlled hypertension, DM, CVA, dyslipidemia, osteopenia, DJD, chronic back pain, right renal artery stenosis, remote PE, chronic anemia, and paroxysmal atrial flutter, on Eliquis. 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 01/05/16: *EGD with PEG placement (Cook 20 Romanian), per Dr. Rebekah Blue. She had a shallow ulceration in the distal esophagus, erythema at the GE junction, no evident hiatal hernia, linear erythema and erosions in the gastric body, and several shallow ulcerations in the antrum, along with distal antral edema and slight narrowing, with patent pylorus. Duodenum was normal. No biopsies were obtained then. The patient had never been seen as an outpatient by GI. Following the PEG, the patient's swallowing reportedly improved, and her G-tube use was minimal. She has since had multiple admissions to [facility] ED, once for fecal impaction & stercoral colitis, and another time for an episode of unresponsiveness. She has diverticulosis coli & uterine fibroid on imaging studies. There is no mention of any colonoscopy in the [facility] computer & the patient's daughter, Nhi Landaverde (contacted by phone), stated that she never had one. There is no family history of any definite GI or liver issues. The patient was brought to the [facility] ER 08/24/16, arriving 8:39 p.m.RISHI from home after she was found by her daughter with decreased po intake, lethargy, & loose dark stools, diarrhea, described as melena, OB+, by Dr. Padilla, of the ER. Upon arrival, BP 147/66, P 63, T 96.9, R 16, O2 sat RA 99%. She received IVF & IV Protonix in the ER & remained normotensive. She currently is on Protonix 40 mg IV BID. In addition to the Eliquis, she was on ASA 81 mg daily, without any NSAIDS. There were no reported recent antibiotics. *The PEG tubing had clear return, without blood or coffee grounds, however no bile was seen (*does not exclude a bleeding source in the pyloric channel or duodenum). Of note, patient's dose of Eliquis was decreased to 2.5 mg twice a day following an episode of vaginal bleeding earlier this year. The dose was reportedly readjusted to 5 minutes twice a day during her last admission. There were no definite fevers or chills. The patient lives at home and is taken care of by a 24-hour licensed nursing assistant. The patient's daughter reports well controlled blood pressure readings at home, ranging 130 to 140 systolic and 60-70 diastolic. Apparently, the patient has a history of GERD, but it is difficult to get any further menaingful history from the patient, post CVA. The patient was admitted to the ICU. She is recieving her 2nd unit PRBC on 08/25/16. *The ER was initially told that the patient last took her Eliquis 10 a.m. on 08/24/16, but the patient's daughter, Nhi Landaverde, just told me that her last dose of Eliquis was given at 5 p.m. on 08/24. The patient's daughter told me that after the CVA, the patient reverted to speaking Hong Konger, but previously spoke Kenyan. *Please note, 07/23/16: WBC 7.3, H/H 7.7/23.1, MCV 88.8, RDW 16, PLT 220, BUN/Cr 18/0.9, GFR 59 08/24/16: WBC 9.3, H/H 7.7/23, MCV 89, RDW 14.3, PLT 273, PT 19.6. INR 1.88, PTT 34 (? utility on Eliquis), glucose 75, *BUN/Cr 38/0.9, GFR 59, Na 140, K 3.9, HCO3 21, AG 11, Ca 9.7. albumin 3.3, globulin 2.9, TBil 0.6, *alk phos 229 (* chronic & intermittent, dating back to 06/01/08), AST 30, ALT 42, troponin < 0.1. 08/25/16: WBC 8.2, H/H 6.9/20.7, PLT 222; glucose 145, BUN/Cr 33/0.9, GFR 59, Na 140, K 3.6, HCO3 22, AG 7, Mg 2.0, Ca 8.9, PO4 3.7, albumin 2.6, TBil 0.6, AST 25, ALT 36 08/25/16: U/A- clear, yellow, < 1.005, 6.0, micro-negative; neg nitrite, neg esterase. 08/25/16: EKG- NSR @ 63, 1st degree AV block with IA .248 (*Hx PAF with CM: afib with stable VR at the time of the 08/25/16: GI consult). 08/25/16: CT ABDOMEN AND PELVIS WITHOUT CONTRAST- 1. Dilated rectum containing stool with associated wall thickening and surrounding stranding. Overall appearance is suspicious for stercoral colitis. 2. Scattered colonic diverticulosis. 3. Partially calcified uterine fibroids. 4. PEG. *The patient has numerous comorbidities, as above. The ability to obtain a history from the patient is limited. Her extensive records were reviewed. She had scattered erosions on the 01/05/2016: EGD with PEG. There currently is debate as to when the patient last took Eliquis- either at 10 a.m. or at 5 p.m. on 08/24/16. In any event, a small amount of it is still on board. She has relatively normal GFR. She also was on baby aspirin. She has never had a colonoscopy. There was evidence of fecal impaction/stercoral colitis on admission CT (unsure as to why obtained). Digital rectal exam was as per Dr. Padilla, of the [facility] on the p.m. of , revealing OB-positive melena. No masses were appreciated. Most likely, the above is an UGI bleed, with elevated BUN:Cr ratio, despite clear return from the PEG tube. However, the fact that there was no bile could imply a channel ulcer or duodenal ulcer, with an UGI bleeding site beyond the pylorus. A colonic/ lower small bowel etiology for the bleed (i.e.- beyond the Ligament of Treitz), seems much less likely, clinically. No diarrhea has been observed as an inpatient. Most likely, the patient is having spurious loose stools around the fecal impaction. Incidentally, an elevated alkaline phosphatase was noted, which dates back to 06/01/08. SUGGEST: Eliquis & ASA on hold for now, weighing the current risk:benefit ratio of ongoing GI bleed with CVA (patient's daughter, Nhi Iglesias aware). Advise cardiology consult for eventual A/C & ASA recommendations, depending on EGD results. NPO for EGD later today (Eliquis still somewhat on board, but Hgb dropping). T & C 2 u PRBC. Check CBC Q 8h for now. Supplemental O2. Transfuse to Hgb > 7 (chronic anemia, without documented ASHD, albeit s/p CVA). IV Protonix 40 mg BID for now (will increase IV Protonix to continuous drip, if therapeutics needed at EGD). Strict I/O's. Check stool for C. difficile, C&S, Shiga toxin. Bowel regimen for fecal impaction (i.e.- Colace & alternating tap H20 enemas with Fleets enemas, every other day). Check 5'NTD regarding elevated alk phos (? bone vs. liver). Witnessed telephone informed consent for EGD was obtained from the patient's daughter, Nhi Landaverde, at [phone], after careful examination of the risks and benefits, including the need for potential intubation. My office number was left for Michelle, at the bedside. *Assuming an upper GI bleeding source is found, based on patient's advanced age and numerous comorbidities, I would not entertain a baseline colonoscopy, unless it would change clinical management. Eventual resumption of tube feeds/po intake (may need swallow evaluation), after workup of GI bleed is completed. The above findings and recommendations were discussed with the medical house staff. Further recommendations to follow, depending on clinical course. 1 hour of ICU care was spent on the patient. Problem List: 1. Anemia 2. GI bleed 3. Melena 4. Malnutrition 5. Elevated alkaline phosphatase level 6. Dysphagia 7. Fecal impaction 8. S/P percutaneous endoscopic gastrostomy (PEG) tube placement 9. PAROXYSMAL ATRIAL FIBRILLATION Copies To: TYLOR ARORA,RAMBO David; BECKI ARORA,SARAH; KRYSTIAN ARORA PhD,PJ Raymond Consult Acknowledgment - Thank you for your consult request.
--- NOTE | 2016-08-25 14:22 | PN- Att Addend ---
Attending Addendum Attending Brief Note 85-year-old female with past medical history significant for paroxysmal A. fib on Eliquis, hypertension, COPD a with left-sided residual weakness, dysphagia status post G-tube, has been admitted with poor poor oral intake, abdominal pain and black tarry loose stools. Patient had her last oral daily in December 2015 with diagnosis of esophagitis, erosive gastritis and shallow antral ulcerations. An admission his aspirin and Eliquis has been held, started on IV PPI twice a day, nothing by mouth, IV fluids and GI consult. Patient also had a CT scan of her abdomen that shows dilated rectum with associated wall thickening and stranding likely stercoral colitis, scattered diverticulosis with no bowel obstruction. GI consult awaited for possible upper GI endoscopy, and while we'll transfuse PRBC 2 units and will continue on IV normal saline to keep up with the blood pressure. Please follow-up posttransfusion CBC. Continue to hold his anticoagulants and aspirin. Will consider a cardiology consult for continued anticoagulation therapy.
[2016-08-25 16:00] VITALS: BP 204/90
--- NOTE | 2016-08-25 18:44 | Proc Note Endoscopy ---
See Addendum Endoscopy Procedure Medical History: unchanged Mental Status: confused (hx CVA) Heart/Lung Eval Prior to Sedation: within normal limits (xc PAF) Candidate for Sedation? Yes Procedure Date: 08/25/16 Procedure Type: EGD [employer] Architect: HOLLY MURILLO MD ASA Classification: IV (IV-E) Indications: (*Please refer to my GI consult from earlier today). 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 However, no bile (rule out channel ulcer and/or DU). The patient has required blood transfusions. Instrument: diagnostic gastroscope Meds Received: MAC Patient's Tolerance: good Complications: none Extent Reached: second part of duodenum Procedure: Upper endoscopy to the second portion of the duodenum, was performed with the Olympus high definition videoendoscope, after obtaining witnessed telephone informed consent from the patient's daughter, Nhi Landaverde, with the youth nutritional monitor and pulse oximeter, with the assistance of Dr. Garner, of [facility]. A mouthpiece was placed in the usual fashion to protect the patient's teeth. The patient was placed in the left lateral decubitus position and sedated by [facility]. At this point , the endoscope was advanced from the mouth into the esophagus, using direct visualization technique. I did not get a good look at the vocal cords. The esophageal mucosa appeared normal. There were no esophageal rings, webs, lesions, strictures, or ulcers. There was no monilia or vesicles. There was no esophageal ribbing. The Z line was well demarcated at 38 cm. There was no hiatal hernia pouch. No significant esophageal inflammation was seen. There were no ectopic islands, nor gross Keen's esophagus. There were no esophageal or gastric varices, nor any Anne Rivas tear. The chinchilla of the stomach distended normally with air insufflation. Direct and retroflexed views of the stomach were performed. There was nothing endoscopically to suggest gastroparesis or portal gastropathy. The mucosa of the gastric cardia, fundus, lesser curvature, incisura, body, and antrum appeared normal, without any gastric ulcers or gastric lesions, aside from the internal bumper of the PEG, located in the gastric body. The pylorus was patent, without any gastric outlet obstruction or channel ulcer. The duodenal bulb and duodenal sweep appeared normal, including the ampulla, without any duodenal ulcers, distal ulcerations, or angiodysplasias. The folds of the second portion of the duodenum were normal in caliber, without any flattening, nodularity, scalloping, or mosaic pattern. * Random biopsies were deferred, as Johannyqudeisy was still on board. No active upper GI bleeding was seen. The patient tolerated the procedure well. Documenting photographs were obtained, and placed inside the patient's chart. Impression: 1. Normal esophagus with Z line at 38 cm. 2. Internal bumper of PEG seen in gastric body. 3. Otherwise, normal upper endoscopy to the second portion of the duodenum. [*In retrospect, the elevated BUN:Cr ratio was probably from dehydration, rather than UGI bleed]. Recommendations: Eliquis & ASA on hold for now, weighing the current risk:benefit ratio of ongoing GI bleed with CVA (patient's daughter, Nhi Iglesias aware). Advise cardiology consult for eventual A/C & ASA recommendations, depending on upcoming colonoscopy results ( 08/25/16: EGD without active bleeding). T & C 2 u PRBC. Check CBC Q 8h for now. Supplemental O2. Transfuse to Hgb > 7 (chronic anemia, without documented ASHD, albeit s/p CVA). Can decrease IV Protonix to 40 mg daily for now (stress ulcer prophylaxis). Strict I/O's. Check stool for C. difficile, C&S, Shiga toxin. Bowel regimen for fecal impaction (i.e.- Colace & alternating tap H20 enemas with Fleets enemas, every other day). *Check 5'NTD regarding elevated alk phos (? bone vs. liver). I left a message with the patient's daughter, Nhi Landaverde, at , completely. She later showed up in the ICU. Informed consent for colonoscopy was obtained from Nhi after careful explanation of the risks and benefits. *If colonoscopy is negative, the patient may need outpatient PillCam. Eventual resumption of tube feeds/po intake (*may need swallow evaluation &/or nutrition consult for TF suggestions), after workup of GI bleed is completed. The above findings and recommendations were discussed with the medical house staff. Further recommendations to follow, depending on clinical course. CC: TYLOR ARORA,RAMBO David; BECKI ARORA,DILMA BLOAND MD PhD,PJ Raymond
--- NOTE | 2016-08-25 18:50 | NUR ---
EGD DONE AT THE BEDSIDE. POST PROCEDURE REPORT RECEIVED FROM GI RN. PT DROWSY AND TEARFUL POST PROCEDURE. FAMILY IS NOT PRESENT AND DR. GUEVARA HAS ATTEMPTED UNSUCCESSFULLY TO REACH DAUGHTER BY PHONE. MONITOR NSR, B/P 170/90, JAIME PATENT, ABDOMEN SOFTLY DISTENDED. O2 SAT ON ROOM AIR 95-96. DENIES PAIN.
--- NOTE | 2016-08-25 18:53 | NUR ---
CBC ORDERED FOR 1830 HAS BEEN SENT AND RECEIVED.
[2016-08-25 19:56] LABS: ABSOLUTE BASOPHIL COUNT 0 /CUMM (0.0-0.2); ABSOLUTE EOSINOPHIL COUNT 0.3 /CUMM (0.0-0.7); ABSOLUTE GRANULOCYTE CT 6.3 /CUMM (1.4-6.5); ABSOLUTE LYMPH COUNT 2.1 /CUMM (1.2-3.4); ABSOLUTE MONOCYTE COUNT 0.5 /CUMM (0.10-0.60); BASOPHIL % 0.4 % (0.0-2.0); EOSINOPHIL % 3.2 % (0-5); GRANULOCYTE % 68.3 % (42.2-75.2); MEAN CORPUSCULAR HGB 30.4 PG (27.0-31.0); MEAN CORPUSCULAR HGB CONC 33.5 G/DL (33.0-37.0); MEAN CORPUSCULAR VOLUME 90.6 FL (81.0-99.0); MEAN PLATELET VOLUME 10.7 FL (7.4-10.4); PLATELET COUNT 229 /CUMM (130-400); RBC DISTRIBUTION WIDTH 14.4 % (11.5-14.5); WHITE BLOOD CELL COUNT 9.2 /CUMM (4.8-10.8)
[2016-08-25 20:19] LABS: RED BLOOD CELL CT 3.15 /CUMM (4.20-5.40)
[2016-08-25 20:20] LABS: HEMATOCRIT 28.5 % (37-47)
--- NOTE | 2016-08-25 21:23 | NUR ---
PATIENT ALERT,DAUGHTER AT BEDSIDE. MONITOR SINUS RHYTHM AT RATE OF 68. TS=366/70. LUNG SOUNDS CLEAR.SAT=95% 0N ROOM AIR.PT TO HAVE COLOLONOSCOPY IN AM. FLEETS ENEMA GIVEN ORDERED.SPECIMENS OF DARK BROWN-BLACK STOOL SENT TO LAB FOR CULTURE AND C DIFF.GOLYTELY STARTED VIA G TUBE.
[2016-08-26] VITALS: BP 170/80
--- NOTE | 2016-08-26 05:00 | NUR ---
NALINI COMPLETED. PATIENT HAS HAD NUMEROUS LIQUID BLACK STOOLS.
[2016-08-26 05:12] LABS: ABSOLUTE BASOPHIL COUNT 0 /CUMM (0.0-0.2); ABSOLUTE EOSINOPHIL COUNT 0.2 /CUMM (0.0-0.7); ABSOLUTE GRANULOCYTE CT 7.6 /CUMM (1.4-6.5); ABSOLUTE LYMPH COUNT 2.4 /CUMM (1.2-3.4); ABSOLUTE MONOCYTE COUNT 0.7 /CUMM (0.10-0.60); BASOPHIL % 0.2 % (0.0-2.0); EOSINOPHIL % 2.1 % (0-5); GRANULOCYTE % 69.3 % (42.2-75.2); HEMATOCRIT 28.6 % (37-47); MEAN CORPUSCULAR HGB 30.2 PG (27.0-31.0); MEAN CORPUSCULAR HGB CONC 33.5 G/DL (33.0-37.0); MEAN CORPUSCULAR VOLUME 90.3 FL (81.0-99.0); MEAN PLATELET VOLUME 9.7 FL (7.4-10.4); PLATELET COUNT 241 /CUMM (130-400); RBC DISTRIBUTION WIDTH 14.9 % (11.5-14.5); RED BLOOD CELL CT 3.16 /CUMM (4.20-5.40); WHITE BLOOD CELL COUNT 10.9 /CUMM (4.8-10.8)
--- NOTE | 2016-08-26 06:59 | PN- Gastroenterology ---
Assessment/Plan Assessment/Recommendations: 85-year-old woman with past medical history significant for poorly controlled hypertension, DM, CVA, dyslipidemia, osteopenia, DJD, chronic back pain, right renal artery stenosis, remote PE, chronic anemia, and paroxysmal atrial flutter, on Eliquis. 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 01/05/16: *EGD with PEG placement (Cook [address] [place]), per Dr. Rebekah Blue. She had a shallow ulceration in the distal esophagus, erythema at the GE junction, no evident hiatal hernia, linear erythema and erosions in the gastric body, and several shallow ulcerations in the antrum, along with distal antral edema and slight narrowing, with patent pylorus. Duodenum was normal. No biopsies were obtained then. The patient had never been seen as an outpatient by GI. Following the PEG, the patient's swallowing reportedly improved, and her G-tube use was minimal. She has since had multiple admissions to [facility] ED, once for fecal impaction & stercoral colitis, and another time for an episode of unresponsiveness. She has diverticulosis coli & uterine fibroid on imaging studies. There is no mention of any colonoscopy in the [place] computer & the patient's daughter, Nhi Landaverde (contacted by phone), stated that she never had one. There is no family history of any definite GI or liver issues. The patient was brought to the [place] ER 08/24/16, arriving 8:39 p.m., BIBA from home after she was found by her daughter with decreased po intake, lethargy, & loose dark stools, diarrhea, described as melena, OB+, by Dr. Padilla, of the ER. Upon arrival, BP 147/66, P 63, T 96.9, R 16, O2 sat RA 99%. She received IVF & IV Protonix in the ER & remained normotensive. She currently is on Protonix 40 mg IV BID. In addition to the Eliquis, she was on ASA 81 mg daily, without any NSAIDS. There were no reported recent antibiotics. *The PEG tubing had clear return, without blood or coffee grounds, however no bile was seen (*does not exclude a bleeding source in the pyloric channel or duodenum). Of note, patient's dose of Eliquis was decreased to 2.5 mg twice a day following an episode of vaginal bleeding earlier this year. The dose was reportedly readjusted to 5 minutes twice a day during her last admission. There were no definite fevers or chills. The patient lives at home and is taken care of by a 24-hour instructor of nursing. The patient's daughter reports well controlled blood pressure readings at home, ranging 130 to 140 systolic and 60-70 diastolic. Apparently, the patient has a history of GERD, but it is difficult to get any further menaingful history from the patient, post CVA. The patient was admitted to the ICU. She is recieving her 2nd unit PRBC on 08/25/16. *The ER was initially told that the patient last took her Eliquis 10 a.m. on 08/24/16, but the patient's daughter, Nhi Landaverde, just told me that her last dose of Eliquis was given at 5 p.m. on 08/24. The patient's daughter told me that after the CVA, the patient reverted to speaking Fijian, but previously spoke Australian. 08/06/13: Hep Bs Ag, Hep C Ab, & HIV- all negative. *Please note, 07/23/16: WBC 7.3, H/H 7.7/23.1, MCV 88.8, RDW 16, PLT 220, BUN/Cr 18/0.9, GFR 59 08/24/16: WBC 9.3, H/H 7.7/23, MCV 89, RDW 14.3, PLT 273, PT 19.6. INR 1.88, PTT 34 (? utility on Eliquis), glucose 75, *BUN/Cr 38/0.9, GFR 59, Na 140, K 3.9, HCO3 21, AG 11, Ca 9.7. albumin 3.3, globulin 2.9, TBil 0.6, *alk phos 229 (* chronic & intermittent, dating back to 06/01/08), AST 30, ALT 42, troponin < 0.1. 08/25/16: WBC 8.2, H/H 6.9/20.7, PLT 222; glucose 145, BUN/Cr 33/0.9, GFR 59, Na 140, K 3.6, HCO3 22, AG 7, Mg 2.0, Ca 8.9, PO4 3.7, albumin 2.6, TBil 0.6, AST 25, ALT 36 08/25/16: U/A- clear, yellow, < 1.005, 6.0, micro-negative; neg nitrite, neg esterase. 08/25/16: EKG- NSR @ 63, 1st degree AV block with OR .248 (*Hx PAF with CM: afib with stable VR at the time of the 08/25/16: GI consult). 08/25/16: CT ABDOMEN AND PELVIS WITHOUT CONTRAST- 1. Dilated rectum containing stool with associated wall thickening and surrounding stranding. Overall appearance is suspicious for stercoral colitis. 2. Scattered colonic diverticulosis. 3. Partially calcified uterine fibroids. 4. PEG. *The patient has numerous comorbidities, as above. The ability to obtain a history from the patient is limited. Her extensive records were reviewed. She had scattered erosions on the 01/05/2016: EGD with PEG. There currently is debate as to when the patient last took Eliquis- either at 10 a.m. or at 5 p.m. on 08/24/16. In any event, a small amount of it is still on board. She has relatively normal GFR. She also was on baby aspirin. She has never had a colonoscopy. There was evidence of fecal impaction/stercoral colitis on admission CT (unsure as to why obtained). Digital rectal exam was as per Dr. Padilla, of the [place] ER on the p.m. of , revealing OB-positive melena. No masses were appreciated. Most likely, the above is an UGI bleed, with elevated BUN:Cr ratio, despite clear return from the PEG tube. However, the fact that there was no bile could imply a channel ulcer or duodenal ulcer, with an UGI bleeding site beyond the pylorus. A colonic/ lower small bowel etiology for the bleed (i.e.- beyond the Ligament of Treitz), seems much less likely, clinically. No diarrhea has been observed as an inpatient. Most likely, the patient is having spurious loose stools around the fecal impaction. *Incidentally, an elevated alkaline phosphatase was noted, which dates back to 06/01/08. 08/25/16: EGD to D2- 1. Normal esophagus with Z line at 38 cm. 2. Internal bumper of PEG seen in gastric body. 3. Otherwise, normal upper endoscopy to the second portion of the duodenum. [*In retrospect, the elevated BUN:Cr ratio was probably from dehydration, rather than UGI bleed]. *As of 08/26/16, the patient remained hemodynamically stable (actually HTN) & afebrile in the ICU. She has received a total of 2 units PRBC to date this admission, with 08/26/2016: Hgb 9.6 The patient had 1 gallon of GoLYTELY via PEG, plus enemas, with black liquid effluent per rectum. She is more alert, conversing in some Australian alternating with Fijian. She is still a little confused with some aphasia post CVA, & is not that accurate a historian. She denied any chest pain or shortness of breath. *Eliquis & ASA remain on hold. She is on prophylactic Protonix 40 mg daily for stress ulcer prophylaxis, 2016: EGD- without active bleeding. She is NPO for colonoscopy later today. *SUGGEST: *Eliquis & ASA remain on hold for now, weighing the current risk:benefit ratio of ongoing GI bleed with CVA (patient's daughter, Nhi Iglesias aware). Advise cardiology consult for eventual A/C & ASA recommendations, depending on upcoming colonoscopy results (08/25/16: *EGD to D2- without active bleeding). T & C 2 u PRBC. Check CBC Q 8h for now. Supplemental O2. Transfuse to Hgb > 7 (chronic anemia, without documented ASHD, albeit s/p CVA). Can decrease IV Protonix to 40 mg daily for now (stress ulcer prophylaxis). Strict I/O's. Check stool for C. difficile, C&S, Shiga toxin. Bowel regimen for fecal impaction (i.e.- Colace & alternating tap H20 enemas with Fleets enemas, every other day). *Check 5'NTD regarding elevated alk phos (? bone vs. liver) & fractionate bilirubin. If indirect hyperbilirubinemia, consider getting haptoglobin (doubt hemolysis). NPO for colonoscopy later today, 08/26/16. Informed consent for colonoscopy was obtained from Nhi after careful explanation of the risks and benefits. Perhaps the patient is oozing from her fecal impaction/stercoral colits, but this should not give melena. *If colonoscopy is negative, the patient may need outpatient PillCam. Eventual resumption of tube feeds/po intake (*may need swallow evaluation &/or nutrition consult for TF suggestions), after workup of GI bleed is completed. DVT prophylaxis with mechanical ALPS & treatment of HTN, etc, as per ICU/medical teams. If colonoscopy stable, consider transfer to telemetry. The above findings and recommendations were again discussed with the medical house staff. Further recommendations to follow, depending on clinical course. 1/2 hour of ICU care was spent on the patient. Problem List: 1. Anemia 2. GI bleed 3. Melena 4. Malnutrition 5. Elevated alkaline phosphatase level 6. Dysphagia 7. Fecal impaction 8. S/P percutaneous endoscopic gastrostomy (PEG) tube placement 9. PAROXYSMAL ATRIAL FIBRILLATION Subjective Subjective: *As of 08/26/16, the patient remained hemodynamically stable (actually HTN) & afebrile in the ICU. She has received a total of 2 units PRBC to date this admission, with 08/26/2016: Hgb 9.6 The patient had 1 gallon of GoLYTELY via PEG, plus enemas, with black liquid effluent per rectum. She is more alert, conversing in some Australian alternating with Fijian. She is still a little confused with some aphasia post CVA, & is not that accurate a historian. She denied any chest pain or shortness of breath. Eliquis & ASA remain on hold. She is on prophylactic Protonix 40 mg daily for stress ulcer prophylaxis, 08/25/2016 : EGD- without active bleeding. She is NPO for colonoscopy later today. 08/25/16: EGD to D2- 1. Normal esophagus with Z line at 38 cm. 2. Internal bumper of PEG seen in gastric body. 3. Otherwise, normal upper endoscopy to the second portion of the duodenum. [*In retrospect, the elevated BUN:Cr ratio was probably from dehydration, rather than UGI bleed]. Review of Systems: Full 14 point ROS currently unobtainable from patient (except for what was in computer), due to clinical status. Review of Systems Constitutional: Reports: weakness. EENTM: Denies: no symptoms (unobtainable). Cardiovascular: Denies: no symptoms (unobtainable). Respiratory: Denies: CP or SOB GI: Reports: ? diarrhea vs. spurious loose stool around ? fecal impaction- got enemas, melena. Genitourinary: Denies: no symptoms (unobtainable). Musculoskeletal: Reports: back pain (chronic). Denies: no symptoms (unobtainable). Skin: Denies: no symptoms (unobtainable). Neurological/Psychological: Reports: depressed (post CVA with L ben), weakness. Hematologic/Endocrine: Denies: no symptoms (unobtainable). Immunologic/Allergic: Denies: no symptoms (unobtainable). All Other Systems: Reviewed and Negative (otherwise unobtainable) Objective Vital Signs and I&Os Vital Signs Date Time Temp Pulse Resp B/P B/P Pulse O2 O2 Flow FiO2 Mean Ox Delivery Rate 08/26 0400 95 Room Air 08/26 0000 98.0 71 20 170/80 95 Room Air 08/26 0000 93 Room Air 08/25 2000 95 Room Air 08/25 1600 99.1 62 26 204/90 96 Room Air 08/25 0800 97.5 57 20 118/50 98 Room Air Intake & Output 08/26 1600 08/26 0400 08/25 1600 08/25 0400 08/24 1600 08/24 0400 Intake Total 2400 964 1624 400 Output Total 550 320 565 175 Balance 2175 622 8692 225 Intake, Blood 700 Product Intake, IV 364 924 400 Intake, Oral 0 Intake, Tube 2400 600 Irrigant Number 6 0 Bowel Movements Output, Urine 550 320 565 175 Patient 165 lb Weight Weight Bed scale Measurement Method Physical Exam: Well-developed, slightly malnourished, elderly female, in no apparent distress. The patient was speaking better & more alert, but it was somewhat difficult for her to communicate, post CVA (Australian alternating with Fijian). Sclera anicteric. Conjunctiva pink. Oropharynx clear. Dry mucus membranes. There is no adenopathy, thyromegaly, or JVD. No peripheral stigmata of inflammatory bowel disease or chronic liver disease on exam. No spiders on the anterior chest wall. No CVA tenderness. Breast & pelvic exams: API. Lungs: clear to A&P. Heart exam: currently regular rate rhythmn (hx PAF; CM- currently NSR), S1 and S2, without any murmur. Abdominal exam: normal bowel sounds, soft belly, nontender, without guarding or rebound. PEG site in upper abdomen to the left of the midline, clean without pus or fasciitis. PEG tubing with clear return (no blood or bile). No mass. No organomegaly. No fluid shift. No pulsatile mass. Digital rectal exam: per Dr. Padilla, of [facility] 08/24/16: melena, OB+ stool. Extremities: without C, C, or E. No palpable cords. Distal pulses 1+ bilaterally. DTRs 2+ on right, 3+ on left. Post right MCA CVA with left hemiplegia (LUE flaccid). Motor intact on right. Somewhat alert, but difficult to assess orientation. Gag reflex present, but minimally diminished. Current Medications: Current Medications Sig/Renee Start time Last Medication Dose Route Stop Time Status Admin Insulin Human Regular 0 Q6 08/25 0600 AC 08/26 SC 0626 Lorazepam 2 MG .STK-MED ONE 08/25 1644 DC IM 08/25 1645 Pantoprazole Sodium 40 MG DAILY 08/26 1000 AC IV Pantoprazole Sodium 40 MG BID 08/25 1000 DC 08/25 IV 0852 Polyethylene Glycol 1 GAL ONE TIME ONE 08/25 1945 DC 08/25 PO 08/25 1946 2134 Polyethylene Glycol 1 GAL ONE TIME ONE 08/25 1930 CAN PO 08/25 1931 Potassium Chloride 10 MEQ Q1H 08/26 0715 AC IV 08/26 0816 Potassium Chloride 10 MEQ Q1H 08/25 0945 DC 08/25 IV 08/25 1146 1210 Sodium Chloride 1,000 ML .[id number] 08/25 0030 AC 08/25 IV 08/26 1629 2042 Sodium Phosphate 1 UNIT ONCE ONE 08/25 2014 DC 08/25 OR 08/25 Results Pertinent Lab Results: Laboratory Tests 08/26 08/26 0600 0444 Chemistry Sodium (137 - 145 mmol/L) 144 Potassium (3.5 - 5.1 mmol/L) 3.8 Chloride (98 - 107 mmol/L) 114 H Carbon Dioxide (22 - 30 mmol/L) 21 L Anion Gap (5 - 16) 10 BUN (7 - 17 mg/dL) 22 H Creatinine (0.5 - 1.0 mg/dL) 0.8 Estimated GFR (>60 ml/min) > 60 Glucose (65 - 99 mg/dL) 74 Calcium (8.4 - 10.2 mg/dL) 9.1 Phosphorus (2.5 - 4.5 mg/dL) 3.3 Magnesium (1.6 - 2.3 mg/dL) 2.0 Total Bilirubin (0.2 - 1.3 mg/dL) 1.8 H AST (14 - 36 U/L) 29 ALT (9 - 52 U/L) 41 Albumin (3.5 - 5.0 g/dL) 2.9 L Hematology CBC w Diff Cancelled NO MAN DIFF REQ WBC (4.8 - 10.8 /CUMM) Cancelled 10.9 H RBC (4.20 - 5.40 /CUMM) Cancelled 3.16 L Hgb (12.0 - 16.0 G/DL) Cancelled 9.6 L Hct (37 - 47 %) Cancelled 28.6 L MCV (81.0 - 99.0 FL) Cancelled 90.3 MCH (27.0 - 31.0 PG) Cancelled 30.2 RDW (11.5 - 14.5 %) Cancelled 14.9 H Plt Count (130 - 400 /CUMM) Cancelled 241 MPV (7.4 - 10.4 FL) Cancelled 9.7 Gran % (42.2 - 75.2 %) 69.3 Lymphocytes % (20.5 - 51.1 %) 21.6 Monocytes % (1.7 - 9.3 %) 6.8 Eosinophils % (0 - 5 %) 2.1 Basophils % (0.0 - 2.0 %) 0.2 Absolute Granulocytes (1.4 - 6.5 /CUMM) 7.6 H Absolute Lymphocytes (1.2 - 3.4 /CUMM) 2.4 Absolute Monocytes (0.10 - 0.60 /CUMM) 0.7 H Absolute Eosinophils (0.0 - 0.7 /CUMM) 0.2 Absolute Basophils (0.0 - 0.2 /CUMM) 0 PUBS MCHC (33.0 - 37.0 G/DL) Cancelled 33.5 08/25 08/25 08/25 1835 1456 0600 Chemistry Sodium Cancelled Potassium Cancelled Chloride Cancelled Carbon Dioxide Cancelled Anion Gap Cancelled BUN Cancelled Creatinine Cancelled Glucose Cancelled Calcium Cancelled Phosphorus Cancelled Magnesium Cancelled Total Bilirubin Cancelled AST Cancelled ALT Cancelled Albumin Cancelled Hematology CBC w Diff NO MAN DIFF REQ Cancelled WBC (4.8 - 10.8 /CUMM) 9.2 Cancelled RBC (4.20 - 5.40 /CUMM) 3.15 L Cancelled Hgb (12.0 - 16.0 G/DL) 9.6 L Cancelled Hct (37 - 47 %) 28.5 L Cancelled MCV (81.0 - 99.0 FL) 90.6 Cancelled MCH (27.0 - 31.0 PG) 30.4 Cancelled RDW (11.5 - 14.5 %) 14.4 Cancelled Plt Count (130 - 400 /CUMM) 229 Cancelled MPV (7.4 - 10.4 FL) 10.7 H Cancelled Gran % (42.2 - 75.2 %) 68.3 Lymphocytes % (20.5 - 51.1 %) 22.7 Monocytes % (1.7 - 9.3 %) 5.4 Eosinophils % (0 - 5 %) 3.2 Basophils % (0.0 - 2.0 %) 0.4 Absolute Granulocytes (1.4 - 6.5 /CUMM) 6.3 Absolute Lymphocytes (1.2 - 3.4 /CUMM) 2.1 Absolute Monocytes (0.10 - 0.60 /CUMM) 0.5 Absolute Eosinophils (0.0 - 0.7 /CUMM) 0.3 Absolute Basophils (0.0 - 0.2 /CUMM) 0 PUBS MCHC (33.0 - 37.0 G/DL) 33.5 Cancelled 08/25 08/25 0500 0058 Chemistry Sodium (137 - 145 mmol/L) 140 Potassium (3.5 - 5.1 mmol/L) 3.6 Chloride (98 - 107 mmol/L) 112 H Carbon Dioxide (22 - 30 mmol/L) 22 Anion Gap (5 - 16) 7 BUN (7 - 17 mg/dL) 33 H Creatinine (0.5 - 1.0 mg/dL) 0.9 Estimated GFR (>60 ml/min) 59 L Glucose (65 - 99 mg/dL) 145 H Calcium (8.4 - 10.2 mg/dL) 8.9 Phosphorus (2.5 - 4.5 mg/dL) 3.7 Magnesium (1.6 - 2.3 mg/dL) 2.0 Total Bilirubin (0.2 - 1.3 mg/dL) 0.6 AST (14 - 36 U/L) 25 ALT (9 - 52 U/L) 36 Troponin I (< 0.11 ng/ml) < 0.01 Albumin (3.5 - 5.0 g/dL) 2.6 L Hematology CBC w Diff NO MAN DIFF REQ WBC (4.8 - 10.8 /CUMM) 8.2 RBC (4.20 - 5.40 /CUMM) 2.31 L Hgb (12.0 - 16.0 G/DL) 6.9 *L Hct (37 - 47 %) 20.7 L MCV (81.0 - 99.0 FL) 89.9 MCH (27.0 - 31.0 PG) 29.9 RDW (11.5 - 14.5 %) 14.7 H Plt Count (130 - 400 /CUMM) 222 MPV (7.4 - 10.4 FL) 10.2 Gran % (42.2 - 75.2 %) 53.3 Lymphocytes % (20.5 - 51.1 %) 34.7 Monocytes % (1.7 - 9.3 %) 7.3 Eosinophils % (0 - 5 %) 4.1 Basophils % (0.0 - 2.0 %) 0.6 Absolute Granulocytes (1.4 - 6.5 /CUMM) 4.4 Absolute Lymphocytes (1.2 - 3.4 /CUMM) 2.8 Absolute Monocytes (0.10 - 0.60 /CUMM) 0.6 Absolute Eosinophils (0.0 - 0.7 /CUMM) 0.3 Absolute Basophils (0.0 - 0.2 /CUMM) 0 PUBS MCHC (33.0 - 37.0 G/DL) 33.3 Urines Urine Color (YEL,AMB,STR) YEL Urine Clarity (CLEAR) CLEAR Urine pH (5.0 - 8.0) 6.0 Ur Specific [place] (1.001 - 1.035) <= 1.005 Urine Protein (NEG,<30 MG/DL) NEG Urine Ketones (NEG) NEG Urine Nitrite (NEG) NEG Urine Bilirubin (NEG) NEG Urine Urobilinogen (0.1 - 1.0 EU/dl) 0.2 Ur Leukocyte Esterase (NEG) NEG Ur Microscopic EXAM NOT REQUIRED Urine Hemoglobin (NEG) NEG Urine Glucose (N MG/DL) NEG 08/24 2210 Chemistry Sodium (137 - 145 mmol/L) 140 Potassium (3.5 - 5.1 mmol/L) 3.9 Chloride (98 - 107 mmol/L) 108 H Carbon Dioxide (22 - 30 mmol/L) 21 L Anion Gap (5 - 16) 11 BUN (7 - 17 mg/dL) 38 H Creatinine (0.5 - 1.0 mg/dL) 0.9 Estimated GFR (>60 ml/min) 59 L BUN/Creatinine Ratio (7 - 25 %) 42.2 H Glucose (65 - 99 mg/dL) 75 Calcium (8.4 - 10.2 mg/dL) 9.7 Total Bilirubin (0.2 - 1.3 mg/dL) 0.6 AST (14 - 36 U/L) 30 ALT (9 - 52 U/L) 42 Alkaline Phosphatase (<127 U/L) 229 H Troponin I (< 0.11 ng/ml) < 0.01 Total Protein (6.3 - 8.2 g/dL) 6.2 L Albumin (3.5 - 5.0 g/dL) 3.3 L Globulin (1.9 - 4.2 gm/dL) 2.9 Albumin/Globulin Ratio (1.1 - 2.2 %) 1.1 Coagulation PT (9.4 - 12.5 SEC) 19.6 H INR (0.90 - 1.19) 1.88 H APTT (25 - 37 SEC) 34 Hematology CBC w Diff NO MAN DIFF REQ WBC (4.8 - 10.8 /CUMM) 9.3 RBC (4.20 - 5.40 /CUMM) 2.58 L Hgb (12.0 - 16.0 G/DL) 7.7 L Hct (37 - 47 %) 23.0 L MCV (81.0 - 99.0 FL) 89.0 MCH (27.0 - 31.0 PG) 29.8 RDW (11.5 - 14.5 %) 14.3 Plt Count (130 - 400 /CUMM) 273 MPV (7.4 - 10.4 FL) 10.5 H Gran % (42.2 - 75.2 %) 61.0 Lymphocytes % (20.5 - 51.1 %) 27.9 Monocytes % (1.7 - 9.3 %) 7.0 Eosinophils % (0 - 5 %) 3.7 Basophils % (0.0 - 2.0 %) 0.4 Absolute Granulocytes (1.4 - 6.5 /CUMM) 5.7 Absolute Lymphocytes (1.2 - 3.4 /CUMM) 2.6 Absolute Monocytes (0.10 - 0.60 /CUMM) 0.7 H Absolute Eosinophils (0.0 - 0.7 /CUMM) 0.3 Absolute Basophils (0.0 - 0.2 /CUMM) 0 PUBS MCHC (33.0 - 37.0 G/DL) 33.5 Imaging/Other Studies: 08/25/16: EKG- NSR @ 63, 1st degree AV block with OR .248 (Hx PAF with CM: afib with stable VR at the time of the initial 08/25/16: GI consult). 08/25/16: CT ABDOMEN AND PELVIS WITHOUT CONTRAST- 1. Dilated rectum containing stool with associated wall thickening and surrounding stranding. Overall appearance is suspicious for stercoral colitis. 2. Scattered colonic diverticulosis. 3. Partially calcified uterine fibroids. 4. PEG. 08/25/16: EGD to D2- 1. Normal esophagus with Z line at 38 cm. 2. Internal bumper of PEG seen in gastric body. 3. Otherwise, normal upper endoscopy to the second portion of the duodenum. [*In retrospect, the elevated BUN:Cr ratio was probably from dehydration, rather than UGI bleed].
--- NOTE | 2016-08-26 07:06 | PN- Resident CRCU ---
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 24 Hour Events: Patient is seen and examined at bedside. She appears confused and states that she is at a basement and out of the hospital, she does seem to have intermittent episodes of confusion. Patient received bowel prep of GoLYTELY last night via NG tube and Fleet enema. Scheduled to have a colonoscopy, upper endoscopy yesterday with no remarkable findings. Does not endorse any acute complaints and no nursing overnight events or telemetry events reported. Objective Vital Signs & I&O Last 8 Hrs of Vitals and I&O: Laboratory Tests 08/26/16 0600: CBC w Diff Cancelled, WBC Cancelled, RBC Cancelled, Hgb Cancelled, Hct Cancelled , MCV Cancelled, MCH Cancelled, RDW Cancelled, Plt Count Cancelled, MPV Cancelled, PUBS MCHC Cancelled 08/26/16 0444: Anion Gap 10, Estimated GFR > 60, Glucose 74, Calcium 9.1, Phosphorus 3.3, Magnesium 2.0, Total Bilirubin 1.8 H, GGT Pending, AST 29, ALT 41, Albumin 2.9 L, CBC w Diff NO MAN DIFF REQ, RBC 3.16 L, MCV 90.3, MCH 30.2, RDW 14.9 H, MPV 9.7, Gran % 69.3, Lymphocytes % 21.6, Monocytes % 6.8, Eosinophils % 2.1, Basophils % 0.2, Absolute Granulocytes 7.6 H, Absolute Lymphocytes 2.4, Absolute Monocytes 0.7 H, Absolute Eosinophils 0.2, Absolute Basophils 0, PUBS MCHC 33.5 08/25/16 1835: CBC w Diff NO MAN DIFF REQ, RBC 3.15 L, MCV 90.6, MCH 30.4, RDW 14.4, MPV 10.7 H, Gran % 68.3, Lymphocytes % 22.7, Monocytes % 5.4, Eosinophils % 3.2, Basophils % 0.4, Absolute Granulocytes 6.3, Absolute Lymphocytes 2.1, Absolute Monocytes 0.5, Absolute Eosinophils 0.3, Absolute Basophils 0, PUBS MCHC 33.5 08/25/16 1456: CBC w Diff Cancelled, WBC Cancelled, RBC Cancelled, Hgb Cancelled, Hct Cancelled , MCV Cancelled, MCH Cancelled, RDW Cancelled, Plt Count Cancelled, MPV Cancelled, PUBS MCHC Cancelled Vital Signs Date Time Temp Pulse Resp B/P B/P Pulse O2 O2 Flow FiO2 Mean Ox Delivery Rate 08/26 0400 95 Room Air 08/26 0000 98.0 71 20 170/80 95 Room Air 08/26 0000 93 Room Air 08/25 2000 95 Room Air 08/25 1600 99.1 62 26 204/90 96 Room Air Intake & Output 08/26 1600 08/26 0800 08/26 0000 Intake Total 2400 964 Output Total 550 320 Balance 1850 644 Intake, IV 364 Intake, Tube 2400 600 Irrigant Number 6 Bowel Movements Output, Urine 550 320 Exam General Appearance: alert, awake, oriented to person but not place and time Head: atraumatic, normal appearance Ears, Nose, Throat: normal pharynx, normal ENT inspection Neck: normal inspection, supple, full range of motion Respiratory: normal breath sounds, chest non-tender Cardiovascular: irregular rythm Gastrointestinal: normal bowel sounds, soft, non-tender Extremities: normal inspection, normal capillary refill, normal range of motion, no edema Current Medications: Current Medications Sig/Renee Start time Last Medication Dose Route Stop Time Status Admin Acetaminophen 650 MG Q6 PRN 08/26 2300 AC 08/27 PO 0759 Carvedilol 12.5 MG BID 08/26 1455 AC 08/27 PO 0825 Chlorhexidine 1 GM .STK-MED ONE 08/26 1515 DC Gluconate TOP 08/26 1516 Dextrose/Sodium 1,000 ML ONCE ONE 08/26 0900 DC 08/26 Chloride IV 08/27 0459 0900 Docusate Sodium 100 MG BID 08/26 2200 AC 08/26 PO 2256 Docusate Sodium 100 MG BID 08/26 1501 DC 08/26 PO 1626 Glycerin 2 SPRAY Q2P PRN 08/26 1045 AC 08/26 PO 1525 Hydralazine HCl 100 MG BID 08/26 1018 AC 08/27 PO 0825 Hydralazine HCl 5 MG ONCE ONE 08/26 0930 DC 08/26 IV 08/26 0931 0930 Insulin Human Regular 0 Q6 08/25 0600 AC 08/27 SC 0602 Lorazepam 1 MG ONCE PRN 08/26 0845 DC IV 08/26 1445 Losartan Potassium 50 MG BID 08/26 1000 AC 08/27 PO 0826 Magnesium Sulfate 1 GM ONCE ONE 08/27 0700 AC Dextrose/Water 100 ML IV 08/27 1059 Metoprolol Tartrate 5 MG ONCE ONE 08/26 0930 CAN IV 08/26 0931 Pantoprazole Sodium 40 MG DAILY 08/26 1000 AC 08/27 IV 0819 Potassium Chloride 10 MEQ Q1H 08/27 0715 DC 08/27 IV 08/27 0816 0818 Sodium Chloride 1,000 ML .[id number] 08/25 0030 DC 08/25 IV 08/26 1629 2042 Impression/Plan Impression/Problem List Impression: This is an 85-year-old lady on apixaban for PAF, aspirin therapy, poorly controlled HTN, renal stenosis presents with a 7-10 history of black stools/with some diarrhea,lethargy, and is found to have a hemoglobin of 6.9 and a Hct of 20.7. Impression * Acute on chronic symptomatic anemia. s/p 2 units PRBC with today's Hgb 9.6. Most probably secondary to acute blood loss as patient is reported to have episodes of black tarry stool, and ED staff reports episode of melena. Aspirin use, episodes of black tarry stool /melena and an elevated BUN is suggestive of upper GI bleed which is precipatated by apixaban use, however EGD was unremarkable. Schedule for colonoscopy today, and if negative, patient might need outpatient Pill CAM study. Patient has history of chronic anemia , most likely secondary to chronic disease anemia as evident by low iron levels, normal ferritin levels decreased total iron binding capacity. * History of hypertension, BP elevated but asymptomatic. Given Hydarlazine 5mg and restarted cozaar 50 mg bid for now and will add home oral hydralazine if BP still persistent.. * History of paroxysmal A. fib with a recent right MCA stroke in 2016. Patient has a [id number] of 8 with a 15.2% risk of stroke/TIA, requiring anticoagulation. However, her HASBLED score is 5 with a 9-12.5 % risk of bleed/ per 100 patients. * 1st degree heart block * History of right MCA residual left-sided paralysis and oropharyngeal dysphagia * History of diabetes mellitus * Elevated alk phosphate Plan NPO awaiting colonoscopy Will hold off Apixaban and ASA pending GI clearance Will maintain potassium levels and magnesium levels above 4 and 2 respectively. Will await cardiology reccomendation on risk/benefit assement of anticoagulation Will obtain formal swallow eval once done with colonoscopy Problem List: 1. Elevated alkaline phosphatase level 2. Melena 3. GI bleed 4. Acute blood loss anemia Pain Ratin Tomorrow's Labs & Rationales: ICU BUNDLE CBC Plan DVT/Prophylaxis: mechanical JOSEROBERT 08/26/16 1020: Attending MD Review Statement Attending Sign Off Attending Cosign Statement: I have: examined this patient, reviewed avalbl EMR data, personally reviewd images, discussd w/resident/PA/SOUND PERSON, discussed mgmt plan w/kathie, discussed mgmt plan w/CM, discussed mgmt plan w/pt, agreed w/resident/PA/SOUND PERSON. Other Findings: "85-year-old female with past medical history significant for paroxysmal A. fib on Eliquis, hypertension, COPD a with left-sided residual weakness, dysphagia status post G-tube, has been admitted with poor poor oral intake, abdominal pain and black tarry loose stools. Patient had her last oral daily in December 2015 with diagnosis of esophagitis, erosive gastritis and shallow antral ulcerations. An admission his aspirin and Eliquis has been held, started on IV PPI twice a day, nothing by mouth, IV fluids and GI consult." Patient also had a CT scan of her abdomen that shows dilated rectum with associated wall thickening and stranding likely stercoral colitis, scattered diverticulosis with no bowel obstruction. ASSESSMENT 1. GI bleed 2. Negative EGD 3. H/O CVA 4. AFIB on eliquis 5. acute blood loss anemia 6. dysphagia s/p PEG 7. diverticulosis 8. hypertension uncontrolled. 9. Melena. PLAN GI consulted possible colonoscopy today, patient prep, and s/p transfused PRBC 2 units. Continue to hold his anticoagulants and aspirin resume as per cards. post transfusion cbc stable. follow GI and cards, gi/dvt prophyalxis
--- NOTE | 2016-08-26 10:02 | NUR ---
SPEECH THERAPY: SWALLOW EVALUATION ORDERS RECEIVED, CHART REVIEWED. PT CURRENTLY NPO FOR COLONOSCOPY TO BE SCHEDULED LATER TODAY. ST CONTINUE TO FOLLOW FOR SWALLOW EVALUATION. D/W RN AND .
--- NOTE | 2016-08-26 13:28 | Proc Note Colonoscopy ---
Colonoscopy Procedure Medical History: unchanged Mental Status: confused (hx CVA) Heart/Lung Eval Prior to Sedation: within normal limits (xc PAF) Candidate for Sedation? Yes Date of Last Colonoscopy: Never Procedure Date: 08/26/16 Procedure Type: colonoscopy w/biopsy Traffic Control Signaler: HOLLY MURILLO MD ASA Classification: III Indications: (*Please refer to my GI consult from 08/25/16). INDX: 85 y/o female with numerous co-morbidities (i.e.- poorly controlled HTN, DM, right MCA CVA with left-sided paralysis & dysphagia post 01/05/16: *PEG, dyslipidemia, osteopenia, DJD, chronic back pain, right renal artery stenosis, remote PE, chronic anemia, paroxysmal atrial flutter, *on outpatient Eliquis & ASA 81 mg daily), admitted 08/24/2016, with *subacute on chronic anemia and melena, with elevated BUN:Cr ratio, albeit with clear return from PEG tube. However, no bile was seen via PEG (rule out channel ulcer and/or DU). The patient has required 2u PRBC to date. There is no family history of GI Ca, GI disease, or inherited liver disease. The patient has never had a baseline colonoscopy, which is being done, as 08/25/16: EGD was negative for bleeding. 08/25/16: EGD to D2- 1. Normal esophagus with Z line at 38 cm. 2. Internal bumper of PEG seen in gastric body. 3. Otherwise, normal upper endoscopy to the second portion of the duodenum. [*In retrospect, the elevated BUN:Cr ratio was probably from dehydration, rather than UGI bleed]. Instrument (Colonoscope): single channel Meds Received: MAC Patient's Tolerance: good Complications: none Extent Reached: terminal ileum Prep: poor Procedure: Baseline colonoscopy to the terminal ileum with biopsies, was performed with the Olympus high-definition videocolonoscope, after obtaining informed consent from the patient's dauughterNhi, with the cardiac rehabilitation specialist and pulse oximeter, after 1 gallon of GoLytely via PEG, plus enemas, with the assistance of Dr. Gottlieb, of [facility]. The prep was poor, predominantly in the rectosigmoid region, which had solid stool. The patient was in the left lateral decubitus position throughout the procedure. Direct views of the rectum failed to reveal any external hemorrhoids, fissures or perianal disease. Digital rectal exam was unremarkable, without any masses, aside from the stool, which was partially disimpacted digitally. Sphincter tone was normal. I did not attempt to retroflex in the rectum, due to the stool, & therefore it is difficult to adequately comment on the rectum The colonic mucosa was otherwise carefully inspected as best as possible, within the limits of the prep, both upon insertion and upon withdrawal of the colonoscope. Withdrawal time was certainly adequate. The prep improved above the rectum. Although there was some scattered stool throughout, I was able to clear the vast majority of it above the rectum, via a combination of water jet and disposable brush. The visibility in the right colon was improved. There was moderate pandiverticulosis coli, left side greater than right, from the sigmoid to the cecum. The cecum, base of the appendix, and ileocecal valve were all identified. The last 2 cm of the terminal ileum were entered, and appeared normal. Confirmatory photographs were obtained. Findings of note included a thickened fold in the distal transverse colon at 70 cm, which was equivocal by NBI. As Eliquis was still on board to a small extent, along with the fact that the prep was poor, a decision was made to only biopsy this: (Specimen A). It was otherwise left intact. The biopsy site was irrigated with the water jet, observed for several minutes postoperatively, and was stable, without any significant bleeding. A decision regarding this will be made after reviewing the pathology. However, the patient will have to be restudied anyway, after an extended cleaned out, along with maintenance enemas. Within the limits of the prep, aside from the thickened fold in the distal transverse colon at 70 cm, and the inability to adequately visualize the rectum due to retained solid stool, the colonic mucosa otherwise appeared intact and within normal limits to the terminal ileum, without any additional mucosal abnormalities, polyps, lesions, gross colitis, ileitis, or angiodysplasias. No active lower GI bleeding was seen. The patient tolerated the procedure well. Documenting photographs were obtained and placed inside the patient's chart. *At the conclusion of the procedure, while the patient was in the recovery room of the GI Suite, the cardiac rehabilitation specialist showed either SVT @ 230 vs. artifact, as the patient was anxious and shaking. It was hard to get a history from the patient, but there was no definite chest pain or shortness of breath. Her blood pressure remained stable throughout, without any hypotension. I contacted the ICU, as well as Dr. Anthony, was saw the patient in the GI suite. He felt that the rhythm strip was consistent with artifact rather than SVT, & then she went back into her baseline aflutter. Dr. Anthony gave her Lopressor 5 mg IV and she was transferred back to the ICU. Impression: 1. Pandiverticulosis coli, left sided greater than right, from the sigmoid colon to the cecum. 2. *Poor prep, especially in the rectum, which contained solid stool, prohibiting retroflexion. The prep improved proximal to this, and the majority of the proximal stool was washed and suctioned clear, using the water jet and disposable brush. Additionally, the patient was manually disimpacted. The colonoscope was advanced to the terminal ileum, however I cannot comment on the last 10 cm of the rectum, due to poor visibility. 3. Thickened fold in distal transverse colon at 70 cm, equivocal by NBI, biopsied: (Specimen A), but otherwise left intact, as Eliquis was still on board to a small extent, along with the fact that the prep was poor. Recommendations: Await biopsies of thickened fold in distal transverse colon at 70 cm: (Specimen A). The patient's daughter, Nhi Landaverde, was contacted at postoperatively, & the above findings and events were discussed with her, as well as with Dr. Anthony & the ICU team. Nhi was told to contact me within the next 2 weeks regarding the colon biopsy results. *She was also made aware that today's colonoscopy was not sufficient to definitively rule out a colon lesion. The patient will stay in the ICU for further monitoring of her artifact > SVT & paroxysmal aflutter, as per cardiology. As per my discussion with Dr. Anthony, I will defer to him regarding resumption of anticoagulation therapy and /or aspirin (previously on Eliquis & ASA 81 mg daily). T & C 2 u PRBC. Check CBC Q 8h for now. Supplemental O2. Transfuse to Hgb > 7 (chronic anemia, without documented ASHD, albeit s/p CVA). Continue Protonix 40 mg daily purely for stress ulcer prophylaxis, as 08/25/16: EGD was negative. Strict I/O's. Check stool for C. difficile, C&S, Shiga toxin, although I feel the so-called "diarrhea" is probably overflow incontinence around the fecal impaction. *Bowel regimen for fecal impaction (i.e.- Colace & alternating tap H20 enemas with Fleets enemas, every other day). *Check 5'NTD regarding elevated alk phos (? bone vs. liver), and fractionate bilirubin. [*Note- 08/26/16: *elevated GGT 169; 08/06/13: Hep Bs Ag, Hep C Ab, & HIV- all negative. Her ferritin was normal. * Patient should have additional liver serologies sent- (i.e. BLANCA, AMA, etc). If there is evidence of indirect hyperbilirubinemia, consider checking haptoglobin (doubt hemolysis). *Once the patient is cleared by cardiology, I would advise a repeat attempt at outpatient colonoscopy after an extended 2 day prep via the PEG (possibly wth 2 gallons of GoLytely), after she has been on an enema regimen to clear her rectum for at least 2 weeks. Additionally, the thickened fold in the in the distal transverse colon at 70 cm which was biopsied but otherwise left intact: (Specimen A), may have to be readdressed, depending on the pathology results. Perhaps the patient is oozing from her fecal impaction/ stercoral colits, but this should not give melena. If the follow-up colonoscopy after an extended prep is unrevealing, the patient may need an outpatient PillCam, to complete her workup. May resume tube feeds/po intake (*may need swallow evaluation &/or nutrition consult for TF suggestions), as the rest of the GI workup will be completed as an outpatient. DVT prophylaxis with mechanical ALPS & treatment of HTN, etc, as per ICU/medical teams. *Further inpatient GI follow up as needed. The patient's daughter, Nhi Landaverde, has my office number. ADDENDUM: 08/27/2016- A. THICKENED FOLD, DISTAL TRANSVERSE COLON AT 70 CM, MULTIPLE BIOPSIES, BUT OTHERWISE LEFT INTACT, DUE TO POOR PREP & ELIQUIS STILL ON BOARD: TUBULAR ADENOMA. NEGATIVE FOR INVASIVE CARCINOMA. Dictated by: YOUSIF ANDERSON MD I called the pt's dtr, Nhi Landaverde, at [phone], regarding the adenomatous fold on baseline colonoscopy to TI (otherwise left intact in the distal transverse colon at 70 cm, as poor prep & Eliquis still on board). I also mentioned the +GGT regarding the chronic alk phos elevation. *She was also again made aware that the 08/26/16: colonoscopy was not sufficient to definitively rule out a colon lesion. The patient will stay in the ICU for further monitoring of her artifact > SVT & paroxysmal aflutter, as per cardiology. As per my discussion with Dr. Anthony, I will defer to him regarding resumption of anticoagulation therapy and /or aspirin (previously on Eliquis & ASA 81 mg daily). T & C 2 u PRBC. Check CBC Q 8h for now. Supplemental O2. Transfuse to Hgb > 7 (chronic anemia, without documented ASHD, albeit s/p CVA). Continue Protonix 40 mg daily purely for stress ulcer prophylaxis, as 08/25/16: EGD was negative. Strict I/O's. Check stool for C. difficile, C&S, Shiga toxin, although I feel the so-called "diarrhea" is probably overflow incontinence around the fecal impaction. *Bowel regimen for fecal impaction (i.e.- Colace & alternating tap H20 enemas with Fleets enemas, every other day). *Check 5'NTD regarding elevated alk phos (? bone vs. liver), and fractionate bilirubin. [*Note- 08/26/16: *elevated GGT 169; 08/06/13: Hep Bs Ag, Hep C Ab, & HIV- all negative. Her ferritin was normal. * Patient should have additional liver serologies sent- (i.e. BLANCA, AMA, etc). If there is evidence of indirect hyperbilirubinemia, consider checking haptoglobin (doubt hemolysis). *Once the patient is cleared by cardiology, I would advise a repeat attempt at outpatient colonoscopy after an extended 2 day prep via the PEG (possibly wth 2 gallons of GoLytely), after she has been on an enema regimen to clear her rectum for at least 2 weeks. *The thickened fold in the in the distal transverse colon at 70 cm which was biopsied but otherwise left intact: ( Specimen A), will have to be readdressed & removed as an outpatient. Perhaps the patient is oozing from her fecal impaction/stercoral colits, but this should not give melena. *If the follow-up outpatient colonoscopy after an extended prep is otherwise unrevealing, the patient may need an outpatient PillCam, to complete her workup. May resume tube feeds/po intake (*may need swallow evaluation &/or nutrition consult for TF suggestions), as the rest of the GI workup will be completed as an outpatient. DVT prophylaxis with mechanical ALPS & treatment of HTN, etc, as per ICU/medical teams. *Further inpatient GI follow up as needed. The patient's daughter, Nhi Landaverde, has my office number. *As of 08/27/16, I left it with the pt's dtr, Nhi Landaverde, to contact my office after the pt is discharged, to coordinate the above repeat outpatient colonoscopy with an extended prep via the PEG, with cleansing enemas (after Eliquis is held preop by Dr. Anthony, of cardiology), & liver serologies, re: elevated alk phos/+GGT. Followup Colonscopy Screen In: in 2-3 weeks after an extended 2 day bowel prep & enema regimen CC: TYLOR ARORA,RAMBO David; BECKI ARORA,SARAH; KRYSTIAN ARORA PhD,PJ Raymond
--- NOTE | 2016-08-26 14:00 | Cons- Cardiology ---
General Information and HPI Consulting Request Date of Consult: 08/26/16 Requested By: BECKI ARORA,SARAH History of Present Illness: Elaina is an 85-year-old female with a history of severe and poorly controlled hypertension, dyslipidemia and renal artery stenosis. She also carries a history of paroxysmal atrial flutter. More recently Elaina suffered a stroke. Elaina was most recently admitted to [facility] for evaluation of bleeding and has undergone an endoscopy and colonoscopy with biopsy. She was noted post procedure to have what appeared to be an SVT although on further review it was artifact related to a tremor. The patient denies any chest discomfort, shortness of breath, lightheadedness or palpitations. This patient is a very difficult historian. Elaina has a long history of non-compliance with both medications and hospital follow up. Elaina's daughter felt that her mother's blood pressure is well controlled with the exception of our office measurements and was very cautious about following my recommendations for drug therapy due to concern of side effects. This was expecially true for Norvas. To review the patient's past history, this patient had a previous episode of hypertensive encephalopathy. Her medications were subsequently adjusted and she was discharged in stable condition. At that time, we strongly recommended more aggressive management of the patient's renal artery stenosis which was noted on her MRA. It should be recalled that in August of 2009, the patient was found to have newly discovered atrial fibrillation with an increased heart rate. At that time, she was anticoagulated, but thereafter, was lost to followup. This patient has undergone a MRA which showed severe focal stenosis of the right renal artery. It was strongly recommended she followup with a renal angiogram. However, the patient opted not to have this procedure, and apparently saw a physician in [place], who said it was not necessary. The patient has remained hypertensive. She did get a followup ultrasound; however, the ultrasound stated the proximal and mid-renal arteries were not visualized bilaterally, although there was normal flow in the intrarenal arteries. It was recommended that a MRA or CT angiogram of the renal arteries be obtained, which was not pursued. This patient has also had moderate complaints of chest pressure radiating up to the base of her neck and shoulder. It was somewhat typical and exacerbated by movement of her arm. There was no exacerbation with eating or breathing. There is no associated nausea, vomiting, diaphoresis, palpitations or shortness of breath, although she did have some dizziness. In consideration of these symptoms, I did recommend, in the past, cardiac catheterization for an unequivocal diagnosis although this was not pursued by the patient. On previous admissions, the patient was noted to have bilateral pleural effusions and pulmonary vascular congestion consistent with congestive heart failure, which I thought was related to her severe hypertension. An echocardiogram showed mild to moderate left ventricular hypertrophy with a normal EF greater than 65% with impaired LV relaxation. The left atrium was mild to moderately dilated. In terms of cardiac valves, there was some thickening of the mitral valve with mild mitral regurgitation. The tricuspid valve demonstrates mild regurgitation. The aortic valve has some thickening and very mildly aortic stenosis and trace aortic insufficiency Allergies/Medications Allergies: Coded Allergies: NO KNOWN ALLERGIES (05/29/15) Home Med List: Apixaban (Eliquis) 5 MG TABLET 5 MG PO BID a fib Aspirin (Lo-Dose Aspirin EC) 81 MG TABLET.DR 1 TAB PO MoTuFr HEART/BLOOD ( Reported) Atorvastatin Calcium 80 MG TABLET 1 TAB PO 1700 HLD (Reported) Chlorhexidine Gluconate (Periogard) 0.12 % MOUTHWASH 15 ML PO MoWeFr GUMS ( Reported) Ferrous Sulfate (IRON) 325 MG (65 MG IRON) TABLET 1 TAB PO DAILY SUPPLEMENT ( Reported) Gabapentin 100 MG CAPSULE 2 CAP PO BID NEUROPATHIC PAIN (Reported) Hydralazine HCl 25 MG TABLET 100 MG PO BID high blood pressure Insulin Aspart (Novolog) 100 UNIT/ML VIAL 0 UNITS SC TIDAC diabetes 80 - 150 0 units 151 - 200 1 unit 201 - 250 2 units 251 - 300 3 units 301 - 350 4 units 351 - 400 6 units > 400 8 units and call Insulin Detemir (Levemir) 100 UNIT/ML VIAL 10 UNITS SC AT BEDTIME diabetes Insulin Detemir (Levemir) 100 UNIT/ML VIAL 10 UNITS SC BID DIABETES Lansoprazole (Prevacid) 30 MG TAB.RAP.DR 1 TAB PO DAILY GI (Reported) Losartan Potassium 50 MG TABLET 1 TAB PO BID HEART/BP (Reported) Multivitamin (Multi-Day Vitamins) 1 EACH TABLET 1 TAB PO DAILY SUPPLEMENT ( Reported) Tamsulosin HCl 0.4 MG CAP.ER.24H 1 CAP PO AT BEDTIME (Reported) Past History Travel History Traveled to [place] past 21 day No Medical History Blood Transfusion Hx: No (not prior to this admission) Neurological: NONE (R MCA with L ben), CVA EENT: cataracts, epistaxis Cardiovascular: AFIB, hypertension, hyperlipidemia, varicose veins Respiratory: pulmonary embolism (remote), pulmonary edema Gastrointestinal: ACID REFLUX Hepatic: NONE Renal: RIGHT RENAL ARTERY STENOSIS Musculoskeletal: chronic back pain, disk herniation, osteoarthritis, Back surgery osteopenia Psychiatric: depression (post CVA) Endocrine: DM Blood Disorders: anemia, PE (remotely- details unknown) Cancer(s): NONE 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 MOTHER (MVA). , Age 30-40; Cause: MVA (motor vehicle accident). FATHER, , Age 30-40; Cause: MVA (motor vehicle accident). Psychosocial History Where Do You Live? Home Who Do You Live With? spouse ( & dtr), child Services at Home: Home Health Aide, Nursing Primary Language: [place] Citizen, Portuguese Smoking Status: Never Smoked ETOH Use: denies use Illicit Drug Use: denies illicit drug use Living Will? no Power of Supervisor Sewer System/HCP? no (but & dtr are closest ) Other Social History: . Lives with and daughter, Nhi Landaverde, although the daughter often is out of the country for extended periods of time. She has a 24-hour health aide. 1 child (dtr- Nhi). No cigarettes, drugs, or alcohol. Born in [facility]. Lives in the for the past 64 years. Completely dependent on others for care, post CVA. 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 Functional Ability ADLs Needs Assist: dressing, eating, toileting, bathing. Ambulation: cane, walker IADLs Needs Assist: shopping, housework, finances, food prep, telephone, transportation, medication admin. 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 ECHO Results (as available) Date of last Echo 07/21/16 EF% 85 Exam & Diagnostic Data Vital Signs and I&O Vital Signs Date Time Temp Pulse Resp B/P B/P Pulse O2 O2 Flow FiO2 Mean Ox Delivery Rate 08/26 0400 95 Room Air 08/26 0000 98.0 71 20 170/80 95 Room Air 08/26 0000 93 Room Air 08/25 2000 95 Room Air 08/25 1600 99.1 62 26 204/90 96 Room Air Intake & Output 08/26 1600 08/26 0800 08/26 0000 08/25 1600 08/25 0800 08/25 0000 Intake Total 2400 964 1210 564 250 Output Total 550 320 250 490 Balance 1850 644 960 74 250 Intake, Blood 700 Product Intake, IV 364 510 564 250 Intake, Oral 0 Intake, Tube 2400 600 Irrigant Number 6 0 Bowel Movements Output, Urine 550 320 250 490 Patient 165 lb 180 lb Weight Weight Bed scale Measurement Method Physical Exam: General: WD/ overweight female in NAD; alert and oriented x 3 HEENT: NC/AT, PERRL, EOMI Neck: no JVD, no carotid bruit Heart: irregularly irregular with 2/6 systolic murmur Lungs: clear bilaterally Abdomen: soft, obese, NT, +ve bowel sounds, PEG noted Extremities: no edema Assessment/Plan Assessment/Plan * This patient has some degree of artifact that appears to be an SVT but is more likely the effects of lead artifact from the patient's shaking. Nevertheless, this patient needs better control of her blood pressure and heart rate. Begin Coreg 12.5mg BID. Continue hydralazine and Losartan. * Anticoagulation can be restarted tomorrow. Consult Acknowledgment - Thank you for your consult request.
[2016-08-26 21:44] LABS: ABSOLUTE BASOPHIL COUNT 0 /CUMM (0.0-0.2); ABSOLUTE EOSINOPHIL COUNT 0.2 /CUMM (0.0-0.7); ABSOLUTE GRANULOCYTE CT 9.2 /CUMM (1.4-6.5); ABSOLUTE LYMPH COUNT 1.8 /CUMM (1.2-3.4); ABSOLUTE MONOCYTE COUNT 0.4 /CUMM (0.10-0.60); BASOPHIL % 0.1 % (0.0-2.0); GRANULOCYTE % 78.8 % (42.2-75.2); HEMATOCRIT 28.6 % (37-47); MEAN CORPUSCULAR HGB 29.8 PG (27.0-31.0); MEAN CORPUSCULAR HGB CONC 32.9 G/DL (33.0-37.0); MEAN CORPUSCULAR VOLUME 90.6 FL (81.0-99.0); MEAN PLATELET VOLUME 10.3 FL (7.4-10.4); PLATELET COUNT 232 /CUMM (130-400); RBC DISTRIBUTION WIDTH 15.1 % (11.5-14.5); RED BLOOD CELL CT 3.16 /CUMM (4.20-5.40); WHITE BLOOD CELL COUNT 11.7 /CUMM (4.8-10.8)
--- NOTE | 2016-08-26 22:30 | NUR ---
PT C/O HEADACHE AND WRIST PAIN. BP AT THIS TIME 210/88, HR 72. DR. GOMEZ NOTIFIED. 2200 PM CARDIAC MEDS GIVEN. TYLENOL GIVEN FOR WRIST PAIN. WILL CONTINUE TO MONITOR BP.
[2016-08-27] VITALS: BP 130/60
[2016-08-27 02:53] LABS: ABSOLUTE BASOPHIL COUNT 0.1 /CUMM (0.0-0.2); ABSOLUTE EOSINOPHIL COUNT 0.3 /CUMM (0.0-0.7); ABSOLUTE GRANULOCYTE CT 7.4 /CUMM (1.4-6.5); ABSOLUTE MONOCYTE COUNT 0.5 /CUMM (0.10-0.60); BASOPHIL % 0.5 % (0.0-2.0); EOSINOPHIL % 2.5 % (0-5); GRANULOCYTE % 72.7 % (42.2-75.2); HEMATOCRIT 26.2 % (37-47); MEAN CORPUSCULAR HGB 29.8 PG (27.0-31.0); MEAN CORPUSCULAR HGB CONC 33.3 G/DL (33.0-37.0); MEAN CORPUSCULAR VOLUME 89.5 FL (81.0-99.0); MEAN PLATELET VOLUME 9.9 FL (7.4-10.4); PLATELET COUNT 217 /CUMM (130-400); RBC DISTRIBUTION WIDTH 14.6 % (11.5-14.5); RED BLOOD CELL CT 2.93 /CUMM (4.20-5.40); WHITE BLOOD CELL COUNT 10.1 /CUMM (4.8-10.8)
--- NOTE | 2016-08-27 04:12 | NUR ---
PT ALERT, DISORIENTED TO TIME. DENIES PAIN. MANUAL BP 130/80, AFIB 60'S. SATURATION ON RA 97%, LUNGS SOUND CLEAR. PT HAS A PEG WHICH WAS PUT IN PREHOSPITAL, CLAMPED.JAIME IN PLACE, ADEQUATE UO. D5NS @ 50ML/H INFUSING.
--- NOTE | 2016-08-27 07:03 | PN- Housestaff ---
ANSHU ARORA,JORDAN 08/27/16 0702: Subjective Follow-up For: Symptomatic Anemia Subjective: Seen and examined at bedside. Max swallow maite yesterday, currently using PEG tube for medication and on dextrose IV. Patient is alert and oriented to person but has intermittent episodes of confusion which has been her baseline. No overnight report of melena or BRBPR. Patient was noted yesterday after procedure to have a increased HR rate of 200, require metoprolol IV 5 mg. Review of Systems Constitutional: Reports: no symptoms. Objective Last 24 Hrs of Vital Signs/I&O Vital Signs Date Time Temp Pulse Resp B/P B/P Pulse O2 O2 Flow FiO2 Mean Ox Delivery Rate 08/27 0826 60 176/64 08/27 0800 Room Air 08/27 0800 98.8 60 18 176/64 98 Room Air 08/27 0000 97 Room Air 08/27 0000 99.3 62 20 130/60 97 Room Air 08/26 2256 72 210/88 08/26 2255 72 210/88 08/26 2255 72 210/88 08/26 2030 96 Room Air Intake & Output 08/27 1600 08/27 0800 08/27 0000 Intake Total 400 677 Output Total 300 500 Balance 100 177 Intake, IV 400 527 Intake, Oral 0 Intake, Tube 150 Irrigant Number 0 Bowel Movements Output, Urine 300 500 Patient 74.843 kg Weight Physical Exam General Appearance: Alert, Cooperative, oriented to person Current Medications: Current Medications Sig/Renee Start time Last Medication Dose Route Stop Time Status Admin Acetaminophen 650 MG Q6 PRN 08/26 2300 AC 08/27 PO 0759 Apixaban 5 MG BID 08/27 1000 AC PO Carvedilol 12.5 MG BID 08/26 1455 AC 08/27 PO 0825 Chlorhexidine 1 GM .STK-MED ONE 08/26 1515 DC Gluconate TOP 08/26 1516 Dextrose/Sodium 1,000 ML ONCE ONE 08/26 0900 DC 08/26 Chloride IV 08/27 0459 0900 Docusate Sodium 100 MG BID 08/26 2200 AC 08/26 PO 2256 Docusate Sodium 100 MG BID 08/26 1501 DC 08/26 PO 1626 Glycerin 2 SPRAY Q2P PRN 08/26 1045 AC 08/26 PO 1525 Hydralazine HCl 100 MG BID 08/26 1018 AC 08/27 PO 0825 Insulin Human Regular 0 Q6 08/25 0600 AC 08/27 SC 0602 Lorazepam 1 MG ONCE PRN 08/26 0845 DC IV 08/26 1445 Losartan Potassium 50 MG BID 08/26 1000 AC 08/27 PO 0826 Magnesium Sulfate 1 GM ONCE ONE 08/27 0700 DC 08/27 Dextrose/Water 100 ML IV 08/27 1059 1005 Pantoprazole Sodium 40 MG DAILY 08/26 1000 AC 08/27 IV 0819 Potassium Chloride 10 MEQ Q1H 08/27 0715 DC 08/27 IV 08/27 0816 0818 Sodium Chloride 1,000 ML .[id number] 08/25 0030 DC 08/25 IV 08/26 1629 2042 Last 24 Hrs of Lab/Klaus Results Last 24 Hrs of Labs/Mics: Laboratory Tests 08/27/16 1000: CBC w Diff NO MAN DIFF REQ, RBC 3.17 L, MCV 90.6, MCH 30.0, RDW 14.8 H, MPV 10.9 H, Gran % 73.2, Lymphocytes % 19.2 L, Monocytes % 3.8, Eosinophils % 3.3, Basophils % 0.5, Absolute Granulocytes 7.3 H, Absolute Lymphocytes 1.9, Absolute Monocytes 0.4, Absolute Eosinophils 0.3, Absolute Basophils 0, PUBS MCHC 33.1 08/27/16 0230: Anion Gap 7, Estimated GFR > 60, Glucose 154 H, Calcium 8.6, Phosphorus 2.7, Magnesium 1.7, Total Bilirubin 1.8 H, AST 27, ALT 32, Albumin 2.5 L, CBC w Diff NO MAN DIFF REQ, RBC 2.93 L, MCV 89.5, MCH 29.8, RDW 14.6 H, MPV 9.9, Gran % 72.7, Lymphocytes % 19.6 L, Monocytes % 4.7, Eosinophils % 2.5, Basophils % 0.5, Absolute Granulocytes 7.4 H, Absolute Lymphocytes 2.0, Absolute Monocytes 0.5, Absolute Eosinophils 0.3, Absolute Basophils 0.1, PUBS MCHC 33.3 08/26/162024: CBC w Diff NO MAN DIFF REQ, RBC 3.16 L, MCV 90.6, MCH 29.8, RDW 15.1 H, MPV 10.3, Gran % 78.8 H, Lymphocytes % 15.7 L, Monocytes % 3.4, Eosinophils % 2.0, Basophils % 0.1, Absolute Granulocytes 9.2 H, Absolute Lymphocytes 1.8, Absolute Monocytes 0.4, Absolute Eosinophils 0.2, Absolute Basophils 0, PUBS MCHC 32.9 L Assessment/Plan Assessment: This is an 85-year-old lady on apixaban for PAF, aspirin therapy, poorly controlled HTN, renal stenosis presents with a 7-10 history of black stools/with some diarrhea,lethargy, and is found to have a hemoglobin of 6.9 and a Hct of 20.7. Impression * Acute on chronic symptomatic anemia. s/p 2 units PRBC with today's Hgb 9.6. Most probably secondary to acute blood loss as patient is reported to have episodes of black tarry stool, and ED staff reports episode of melena. Aspirin use, episodes of black tarry stool /melena and an elevated BUN is suggestive of upper GI bleed which is precipatated by apixaban use, however EGD was unremarkable. Schedule for colonoscopy today, and if negative, patient might need outpatient Pill CAM study. Patient has history of chronic anemia , most likely secondary to chronic disease anemia as evident by low iron levels, normal ferritin levels decreased total iron binding capacity. * History of hypertension, BP elevated but asymptomatic. Given Hydarlazine 5mg and restarted cozaar 50 mg bid and hydralazine. Coreg started. Will add nifedipine xl 30 mg if HTN persits. * History of paroxysmal A. fib with a recent right MCA stroke in 2016. Patient has a [id number] of 8 with a 15.2% risk of stroke/TIA, requiring anticoagulation. However, her HASBLED score is 5 with a 9-12.5 % risk of bleed/ per 100 patients. Will restart apixaban per cadiology since h/h stable. 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 formal swallow evaluation again Will closely monitor BP, if persistently elevated, will consider adding felodipine (per cardio) Problem List: 1. Elevated alkaline phosphatase level 2. Acute blood loss anemia Pain Ratin Pain Location: headache Pain Goal: Remain pain free Pain Plan: per pathway Tomorrow's Labs & Rationales: icu bundle ROBERT GARCIA 08/27/16 0958: Attending MD Review Statement Attending Statement Attending MD Statement: examined this patient, discuss w/resident/PA/DRAW BENCH OPERATOR HELPER, agreed w/resident/PA/DRAW BENCH OPERATOR HELPER, discussed with family, reviewed EMR data (avail), discussed with nursing, discussed with case mgmt, reviewed images, amended to note Attending Assessment/Plan: ASSESSMENT 1. GI bleed 2. Negative EGD and colonoscopy 3. H/O CVA 4. AFIB on eliquis 5. acute blood loss anemia 6. dysphagia s/p PEG 7. diverticulosis 8. hypertension uncontrolled. 9. Melena. PLAN GI consulted s/p EGD and colonoscopy, s/p transfused PRBC 2 units post transfusion cbc stable. resume his anticoagulants and aspirin as per cards. resumed BP meds, on coreg titrate as needed, follow on tele, follow GI and cards , gi/dvt prophyalxis.
--- NOTE | 2016-08-27 07:53 | PN- Cardiology ---
Subjective Subjective: * Patient complains of a headache. * sinus rhythm with artifact on rhythm strips * WBC, H/H and platelets all a bit lower on last CBC with no definite bleeding issues * BP is better today Objective Vital Signs and I&Os Vital Signs Date Time Temp Pulse Resp B/P B/P Pulse O2 O2 Flow FiO2 Mean Ox Delivery Rate 08/27 0000 97 Room Air 08/27 0000 99.3 62 20 130/60 97 Room Air 08/26 2256 72 21008/26 2255 72 21008/26 2255 72 21008/26 2030 96 Room Air Intake & Output 08/27 0800 08/27 0000 08/26 1600 08/26 0800 08/26 0000 08/25 1600 Intake Total 400 717 418 9915 964 1210 Output Total 300 500 700 550 320 250 Balance 100 177 -100 1850 644 960 Intake, Blood 700 Product Intake, IV 400 527 600 364 510 Intake, Oral 0 0 0 Intake, Tube 150 2400 600 Irrigant Number 0 3 6 0 Bowel Movements Output, Urine 300 500 700 550 320 250 Patient 165 lb Weight Physical Exam: General: WD/ overweight female in NAD; alert and oriented x 3 Neck: no JVD, no carotid bruit Heart: RRR with 2/6 systolic murmur Lungs: clear bilaterally Extremities: no edema Assessment/Plan Assessment/Plan * Patient is in a sinus rhythm. * improved blood pressure on Coreg. If her pressure rises again I would begin Nifedipine ER 30mg daily. * Follow H/H and if stable it is reasonable to restart Eliquis. Continue telemetry? Yes
[2016-08-27 08:00] VITALS: BP 176/64
[2016-08-27 11:21] LABS: ABSOLUTE BASOPHIL COUNT 0 /CUMM (0.0-0.2); ABSOLUTE EOSINOPHIL COUNT 0.3 /CUMM (0.0-0.7); ABSOLUTE GRANULOCYTE CT 7.3 /CUMM (1.4-6.5); ABSOLUTE LYMPH COUNT 1.9 /CUMM (1.2-3.4); ABSOLUTE MONOCYTE COUNT 0.4 /CUMM (0.10-0.60); BASOPHIL % 0.5 % (0.0-2.0); EOSINOPHIL % 3.3 % (0-5); GRANULOCYTE % 73.2 % (42.2-75.2); HEMATOCRIT 28.7 % (37-47); MEAN CORPUSCULAR HGB CONC 33.1 G/DL (33.0-37.0); MEAN CORPUSCULAR VOLUME 90.6 FL (81.0-99.0); MEAN PLATELET VOLUME 10.9 FL (7.4-10.4); PLATELET COUNT 139 /CUMM (130-400); RBC DISTRIBUTION WIDTH 14.8 % (11.5-14.5); RED BLOOD CELL CT 3.17 /CUMM (4.20-5.40)
[2016-08-27 11:30] VITALS: BP 134/52
--- NOTE | 2016-08-27 12:30 | NUR ---
TAP WATER EMEMA GIVEN WITH SCANT FLEXS OF DARK BLACK STOOL. PATIENT TOLERATED WELL. PERICARE GIVEN.
[2016-08-27 16:00] VITALS: BP 144/60
[2016-08-28 05:08] LABS: ABSOLUTE BASOPHIL COUNT 0 /CUMM (0.0-0.2); ABSOLUTE EOSINOPHIL COUNT 0.3 /CUMM (0.0-0.7); ABSOLUTE GRANULOCYTE CT 6.9 /CUMM (1.4-6.5); ABSOLUTE LYMPH COUNT 2.1 /CUMM (1.2-3.4); ABSOLUTE MONOCYTE COUNT 0.6 /CUMM (0.10-0.60); BASOPHIL % 0.1 % (0.0-2.0); EOSINOPHIL % 3.4 % (0-5); GRANULOCYTE % 69.6 % (42.2-75.2); HEMATOCRIT 26.2 % (37-47); MEAN CORPUSCULAR HGB 29.6 PG (27.0-31.0); MEAN CORPUSCULAR HGB CONC 32.9 G/DL (33.0-37.0); RBC DISTRIBUTION WIDTH 14.9 % (11.5-14.5); RED BLOOD CELL CT 2.91 /CUMM (4.20-5.40); WHITE BLOOD CELL COUNT 9.9 /CUMM (4.8-10.8)
[2016-08-28 05:22] LABS: PLATELET COUNT 221 /CUMM (130-400)
[2016-08-28 08:00] VITALS: BP 152/62
--- NOTE | 2016-08-28 09:48 | PN- Housestaff ---
ANSHU ARORA,[facility] 08/28/16 0948: Subjective Follow-up For: Acute anemia Subjective: Seen and examined at bedside. No overnight report of black tarry stool, melena or any kind of GI bleed. Patient is alert awake and oriented to place, denies any acute complaints of chest pain, palpitations, shortness of breath, any new focal neurological deficit, fever, chills, nausea, vomiting, abdominal pain or dysuria. Continues to be on alternating enema and tap H2O. No acute overnight telemetry event reported and no acute overnight nursing report. Review of Systems Constitutional: Reports: see HPI. Objective Last 24 Hrs of Vital Signs/I&O Vital Signs Date Time Temp Pulse Resp B/P B/P Pulse O2 O2 Flow FiO2 Mean Ox Delivery Rate 08/28 08 98.7 67 18 152/62 96 Room Air 08/28 0000 Room Air 08/27 2322 99.4 74 18 94 Room Air 08/27 2138 65 158/74 08/27 2137 65 158/75 08/27 2137 65 158/74 08/27 1600 99.3 57 20 144/60 95 Room Air 08/27 1130 60 134/52 Intake & Output 08/28 1600 08/28 0800 08/28 0000 Intake Total 340 480 Output Total 300 225 Balance 40 255 Intake, IV 100 Intake, Oral 240 480 Number 1 1 Bowel Movements Output, Urine 300 225 Physical Exam General Appearance: Alert, Cooperative Cardiovascular: Normal S1, Normal S2 Lungs: Clear to Auscultation, Normal Air Movement Abdomen: Normal Bowel Sounds, Soft, No Tenderness, peg tube intact Neurological: Normal Speech Extremities: No Edema Assessment/Plan Assessment: This is an 85-year-old lady on apixaban for PAF, aspirin therapy, poorly controlled HTN, renal stenosis presents with a 7-10 history of black stools/with some diarrhea,lethargy, and is found to have a hemoglobin of 6.9 and a Hct of 20.7. Impression * Acute on chronic symptomatic anemia. s/p 2units with hemoglobin stable. Today . pt hgb droppes by 1 unit but no report of melena or rectal bleed,guaic positive. Will recheck CBC and discharge tomorrow with GI outpatient f/u. Most probably secondary to acute blood loss as patient is reported to have episodes of black tarry stool, and ED staff reports episode of melena. Aspirin use, episodes of black tarry stool /melena and an elevated BUN is suggestive of upper GI bleed which is precipatated by apixaban use, however EGD was unremarkable. colonoscopy was not conlcusive due to significant fecal material. patient will need another scope after atleast 2 weeks of aggresive bowel regimen of fleet and tap h20 alternating qod. might need outpatient Pill CAM study. Patient has history of chronic anemia , most likely secondary to chronic disease anemia as evident by low iron levels, normal ferritin levels decreased total iron binding capacity. * History of hypertension, BP better controlled today. Given Hydarlazine 5mg and restarted cozaar 50 mg bid and hydralazine and coreg bid. Will add nifedipine xl 30 mg if HTN persits. * History of paroxysmal A. fib with a recent right MCA stroke in 2016. Patient has a [id number] of 8 with a 15.2% risk of stroke/TIA, requiring anticoagulation. However, her HASBLED score is 5 with a 9-12.5 % risk of bleed/ per 100 patients. restarted apixaban per cadiology since h/h stable. 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 formal swallow evaluation again Will closely monitor BP, if persistently elevated, will consider adding felodipine (per cardio) Problem List: 1. Melena 2. Acute blood loss anemia 3. Elevated alkaline phosphatase level Pain Ratin Pain Location: none Pain Goal: Remain pain free Pain Plan: per pain pathway Tomorrow's Labs & Rationales: icu bundle cbc JOSEROBERT Kan 08/28/16 1032: Attending MD Review Statement Attending Statement Attending MD Statement: examined this patient, discuss w/resident/PA/CUSTOMER ADVOCACY MANAGER, agreed w/resident/PA/CUSTOMER ADVOCACY MANAGER, discussed with family, reviewed EMR data (avail), discussed with nursing, discussed with case mgmt, reviewed images, amended to note Attending Assessment/Plan: ASSESSMENT 1. GI bleed 2. Negative EGD and colonoscopy 3. H/O CVA 4. AFIB on eliquis 5. acute blood loss anemia 6. dysphagia s/p PEG 7. diverticulosis 8. hypertension uncontrolled. 9. Melena. PLAN GI consulted s/p EGD and colonoscopy, s/p transfused PRBC 2 units post transfusion cbc stable. resumed his anticoagulants and aspirin as per cards. resumed BP meds, on coreg titrate as needed, anticipate d/c, follow GI and cards , gi/dvt prophyalxis, consult case management.
--- NOTE | 2016-08-28 10:29 | NUR ---
Physical therapy: Orders for PT eval and treat recieved, chart reviewed. 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 No skilled PT needs at this time. PT will not be following. Thank you.
[2016-08-28 12:07] VITALS: BP 120/58
--- NOTE | 2016-08-28 12:27 | NUR ---
NOTIFIED ENVIRONMENTAL FIELD TEAM MEMBER DR BRASHER OF PATIENT DOES NOT WANT LUNCH, "I STOMACH DOESN'T WANT IT". IV ZOFRAN GIVEN PER ENVIRONMENTAL FIELD TEAM MEMBER. WILL CONTINUE CALORIE COUNT PER NUTRITION. WILL CONTINUE TO MONITOR.
[2016-08-28] MEDS ORDERED: DOCUSATE SODIU100 M3 PO (15:38)
[2016-08-28] MEDS ORDERED: COREG12.5 M1 PO (15:38)
--- NOTE | 2016-08-28 15:42 | Patient Discharge Instructions ---
Discharge Instructions General Discharge Information You were seen/treated for: ANEMIA Special Instructions: PLEASE SEEK MEDICAL ATTENTION IF YOU NOTICE ANY BLOOD IN STOOL PLEASE CONTACT DR MURILLO OFFICE (STOMACH DOCTOR), TO ARRANGE PLANS FOR A COLONOSCOPY. PRIOR TO RHE COLONOSCOPY, YOU WILL NEED AN EXTENDED BOWEL CLEANSING, AND 2-3 DAYS OF CLEAR LIQUIDS BEFORE THE PROCEDURE (PLEASE CONTACT DR MURILLO OFFICE ON THE DETAILS). PLEASE FOLLOW UP WITH YOUR PCP WITHIN 1 WEEK YOUR LEVEMIR (LONG ACTING) HAS BEEN TEMPORARY STOPPED, PLEASE CONTACT YOUR PCP AND BULK SUGAR HANDLER ON WHEN TO RESTART Acute Coronary Syndrome Inclusion Criteria At DC or during hospital stay patient has or had the following: ACS DIAGNOSIS No Discharge Core Measures Meds if any: Prescribed or Continued at Discharge ASHISH/ARB if EF <40% No Meds if any: NOT Prescribed or Continued at Discharge Congestive Heart Failure Inclusion Criteria At DC or during hospital stay patient has or had the following: CHF DIAGNOSIS No Discharge Core Measures Meds if any: Prescribed or Continued at Discharge Meds if any: NOT Prescribed or Continued at Discharge Cerebrovascular accident Inclusion Criteria At DC or during hospital stay patient has or had the following: CVA/TIA Diagnosis No Discharge Core Measures Meds if any: Prescribed or Continued at Discharge Meds if any: NOT Prescribed or Continued at Discharge Venous thromboembolism Inclusion Criteria VTE Diagnosis No VTE Type NONE VTE Confirmed by (Test) NONE Discharge Core Measures - Per Current guidelines, there needs to be overlap - treatment for the first 5 days of Warfarin therapy. - If discharged on Warfarin prior to 5 days of - overlap therapy, the patient will need to be - assessed for post discharge needs including - *Post discharge parental anticoagulation - *Warfarin and/or parental anticoagulation education - *Follow up date to check INR post discharge At least 5 days overlap therapy as Inpatient No Meds if any: Prescribed or Continued at Discharge Note: Overlap Therapy is Warfarin and Anticoagulant Meds if any: NOT Prescribed or Continued at Discharge
[2016-08-28 16:00] LABS: ABSOLUTE BASOPHIL COUNT 0 /CUMM (0.0-0.2); ABSOLUTE EOSINOPHIL COUNT 0.2 /CUMM (0.0-0.7); ABSOLUTE GRANULOCYTE CT 6.7 /CUMM (1.4-6.5); ABSOLUTE LYMPH COUNT 1.5 /CUMM (1.2-3.4); ABSOLUTE MONOCYTE COUNT 0.5 /CUMM (0.10-0.60); BASOPHIL % 0.2 % (0.0-2.0); EOSINOPHIL % 2.2 % (0-5); GRANULOCYTE % 75.2 % (42.2-75.2); HEMATOCRIT 25.5 % (37-47); MEAN CORPUSCULAR HGB CONC 33.2 G/DL (33.0-37.0); MEAN CORPUSCULAR VOLUME 90.3 FL (81.0-99.0); MEAN PLATELET VOLUME 9.1 FL (7.4-10.4); PLATELET COUNT 206 /CUMM (130-400); RBC DISTRIBUTION WIDTH 15.5 % (11.5-14.5); RED BLOOD CELL CT 2.83 /CUMM (4.20-5.40)
[2016-08-28 19:04] VITALS: BP 110/56
--- NOTE | 2016-08-28 20:01 | PN- Cardiology ---
Subjective Subjective: * No complaints. * sinus rhythm * BP improved. * persistent anemia Objective Vital Signs and I&Os Vital Signs Date Time Temp Pulse Resp B/P B/P Pulse O2 O2 Flow FiO2 Mean Ox Delivery Rate 08/28 1904 Room Air 08/28 1904 99.3 75 18 110/56 94 Room Air 08/28 1207 98.5 73 18 120/58 97 Room Air 08/28 0800 98.7 67 18 152/62 96 Room Air 08/28 0000 Room Air 08/27 2322 99.4 74 18 94 Room Air 08/27 2138 65 158/74 08/27 213 65 158/75 08/27 2136 65 158/74 Intake & Output 08/28 1600 08/28 0800 08/28 0000 08/27 1600 08/27 0800 08/27 0000 Intake Total 700 340 480 860 400 677 Output Total 150 300 225 550 300 500 Balance 550 40 255 310 100 177 Intake, IV 400 100 500 400 527 Intake, Oral 300 240 480 180 0 Intake, Tube 180 150 Irrigant Number 2 1 1 0 Bowel Movements Output, Urine 150 300 225 550 300 500 Patient 176 lb 165 lb Weight Weight Bed scale Measurement Method Physical Exam: General: WD/ overweight female in NAD; alert and oriented x 3 Neck: no JVD, no carotid bruit Heart: RRR with 2/6 systolic murmur Lungs: clear bilaterally Extremities: no edema Assessment/Plan Assessment/Plan * Patient is in a sinus rhythm. * improved blood pressure on Coreg. Continue current medications * Follow H/H and if stable it is reasonable to continue Eliquis. Continue telemetry? Yes
[2016-08-29] VITALS: BP 130/60
[2016-08-29 06:45] LABS: ABSOLUTE BASOPHIL COUNT 0 /CUMM (0.0-0.2); ABSOLUTE EOSINOPHIL COUNT 0.4 /CUMM (0.0-0.7); ABSOLUTE LYMPH COUNT 2.4 /CUMM (1.2-3.4); ABSOLUTE MONOCYTE COUNT 0.5 /CUMM (0.10-0.60); BASOPHIL % 0.4 % (0.0-2.0); EOSINOPHIL % 4.3 % (0-5); GRANULOCYTE % 60.2 % (42.2-75.2); HEMATOCRIT 25.7 % (37-47); MEAN CORPUSCULAR HGB 29.9 PG (27.0-31.0); MEAN CORPUSCULAR HGB CONC 32.8 G/DL (33.0-37.0); MEAN PLATELET VOLUME 10.2 FL (7.4-10.4); PLATELET COUNT 194 /CUMM (130-400); RBC DISTRIBUTION WIDTH 15.4 % (11.5-14.5); RED BLOOD CELL CT 2.82 /CUMM (4.20-5.40); WHITE BLOOD CELL COUNT 8.3 /CUMM (4.8-10.8)
--- NOTE | 2016-08-29 07:35 | PN- Housestaff ---
ANSHU ARORA,JORDAN 08/29/16 0734: Subjective Follow-up For: Acute ANemia Subjective: Seen and examined at bedside. No overnight report of black tarry stool, melena or any kind of GI bleed. Patient is alert awake and oriented to place, denies any acute complaints of chest pain, palpitations, shortness of breath, any new focal neurological deficit, fever, chills, nausea, vomiting, abdominal pain or dysuria. No acute overnight telemetry event reported and no acute overnight nursing report. Review of Systems Constitutional: Reports: no symptoms. Objective Last 24 Hrs of Vital Signs/I&O Vital Signs Date Time Temp Pulse Resp B/P B/P Pulse O2 O2 Flow FiO2 Mean Ox Delivery Rate 08/30 0019 100.2 67 18 170/68 97 08/29 2135 67 120/70 08/29 2135 67 120/70 08/29 2134 67 120/70 08/29 1935 98.7 73 20 132/78 95 Room Air 08/29 1600 98.5 88 18 136/70 98 Room Air 08/29 1058 99.7 73 23 150/70 08/29 1058 99.7 73 23 150/70 08/29 1058 99.7 73 23 150/70 08/29 0822 99.7 73 23 150/70 96 Room Air Room Air Intake & Output 08/30 0800 08/30 0000 08/29 1600 Intake Total 300 490 Output Total 200 Balance 300 290 Intake, IV 200 250 Intake, Oral 100 240 Output, Urine 200 Physical Exam General Appearance: Alert, Cooperative, ORIENTED TO PLACE AND PERSON Cardiovascular: Normal S1, Normal S2 Lungs: Clear to Auscultation, Normal Air Movement Abdomen: Soft, No Tenderness Extremities: No Clubbing, No Cyanosis, No Edema Assessment/Plan Assessment: This is an 85-year-old lady on apixaban for PAF, aspirin therapy, poorly controlled HTN, renal stenosis presents with a 7-10 history of black stools/with some diarrhea,lethargy, and is found to have a hemoglobin of 6.9 and a Hct of 20.7. Impression * Acute on chronic symptomatic anemia. s/p 2units with hemoglobin almost stable, but gave 1 unit today to attain goal of 10 , will discharge tomorrow with GI outpatient f/u. Most probably secondary to acute blood loss as patient is reported to have episodes of black tarry stool, and ED staff reports episode of melena. Aspirin use, episodes of black tarry stool /melena and an elevated BUN is suggestive of upper GI bleed which is precipatated by apixaban use, however EGD was unremarkable. colonoscopy was not conlcusive due to significant fecal material. patient will need another scope after atleast 2 weeks of aggresive bowel regimen of fleet and tap h20 alternating qod. might need outpatient Pill CAM study. Patient has history of chronic anemia , most likely secondary to chronic disease anemia as evident by low iron levels, normal ferritin levels decreased total iron binding capacity. * History of hypertension, BP better controlled today. Given Hydarlazine 5mg and restarted cozaar 50 mg bid and hydralazine and coreg bid. Will add nifedipine xl 30 mg if HTN persits. * History of paroxysmal A. fib with a recent right MCA stroke in 2016. Patient has a [id number] of 8 with a 15.2% risk of stroke/TIA, requiring anticoagulation. However, her HASBLED score is 5 with a 9-12.5 % risk of bleed/ per 100 patients. restarted apixaban per cadiology since h/h stable. 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 Will closely monitor BP, if persistently elevated, will consider adding felodipine (per cardio) Problem List: 1. Elevated alkaline phosphatase level 2. 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 Agree with plan for transfusion today and follow-up H/H in morning. PT evaluation regarding home care. Continue to monitor for GI bleeding.
[2016-08-29 08:22] VITALS: BP 150/70
[2016-08-29 16:00] VITALS: BP 136/70
[2016-08-29 19:35] VITALS: BP 132/78
[2016-08-29 22:43] LABS: ABSOLUTE BASOPHIL COUNT 0 /CUMM (0.0-0.2); ABSOLUTE EOSINOPHIL COUNT 0.3 /CUMM (0.0-0.7); ABSOLUTE GRANULOCYTE CT 5.8 /CUMM (1.4-6.5); ABSOLUTE LYMPH COUNT 2.2 /CUMM (1.2-3.4); ABSOLUTE MONOCYTE COUNT 0.6 /CUMM (0.10-0.60); BASOPHIL % 0.2 % (0.0-2.0); EOSINOPHIL % 3.8 % (0-5); GRANULOCYTE % 65.2 % (42.2-75.2); HEMATOCRIT 29.2 % (37-47); MEAN CORPUSCULAR HGB 29.9 PG (27.0-31.0); MEAN CORPUSCULAR HGB CONC 33.3 G/DL (33.0-37.0); MEAN CORPUSCULAR VOLUME 89.5 FL (81.0-99.0); MEAN PLATELET VOLUME 10.1 FL (7.4-10.4); PLATELET COUNT 198 /CUMM (130-400); RED BLOOD CELL CT 3.26 /CUMM (4.20-5.40); WHITE BLOOD CELL COUNT 8.9 /CUMM (4.8-10.8)
[2016-08-30 00:19] VITALS: BP 170/68
--- NOTE | 2016-08-30 07:08 | PN- Housestaff ---
See Addendum Subjective Follow-up For: Anemia secondary to GI bleeding Stercoralis colitis Complaints: no complaints Tele-Events Since Last Visit: No any overnight events Subjective: Patient is seen and examined at the bedside. She was complaining of pain in his back. Review of Systems Constitutional: Reports: no symptoms. Musculoskeletal: Reports: back pain, joint pain. Neurological/Psychological: Reports: headache. Objective Last 24 Hrs of Vital Signs/I&O Vital Signs Date Time Temp Pulse Resp B/P B/P Pulse O2 O2 Flow FiO2 Mean Ox Delivery Rate 08/30 1646 99.0 68 20 136/72 97 Room Air 08/30 1254 Room Air Room Air 08/30 1247 62 148/64 08/30 0919 98.1 62 20 190/70 08/30 0918 62 190/70 08/30 0918 98.1 62 20 190/70 08/30 0824 98.1 62 20 176/78 97 Room Air 08/30 0019 100.2 67 18 170/68 97 08/29 2135 67 120/70 08/29 2135 67 120/70 08/29 2134 67 120/70 08/29 1935 98.7 73 20 132/78 95 Room Air Intake & Output 08/30 1600 08/30 0800 08/30 0000 Intake Total 480 300 Output Total Balance 480 300 Intake, IV 200 Intake, Oral 480 100 Physical Exam General Appearance: Alert, Oriented X3, Cooperative, No Acute Distress Cardiovascular: Normal S1, Normal S2 Lungs: Clear to Auscultation, Normal Air Movement Abdomen: G-tube in place Neurological: Normal Speech, eakness in left side of the upper and lower limb, 2 /5 Extremities: No Clubbing, No Cyanosis, No Edema Current Medications: Current Medications Sig/Renee Start time Last Medication Dose Route Stop Time Status Admin Acetaminophen 650 MG Q6 PRN 08/26 2300 AC 08/29 PO 0241 Apixaban 5 MG BID 08/27 1000 AC 08/30 PO 0950 Carvedilol 12.5 MG BID 08/26 1455 AC 08/30 PO 0918 Docusate Sodium 100 MG BID 08/26 2200 AC 08/30 PO 0918 Glycerin 2 SPRAY Q2P PRN 08/26 1045 AC 08/26 PO 1525 Hydralazine HCl 100 MG BID 08/26 1018 AC 08/30 PO 0918 Insulin Aspart 0 TIDAC 08/27 1700 AC 08/30 SC 1645 Losartan Potassium 50 MG BID 08/26 1000 AC 08/30 PO 0919 Pantoprazole Sodium 40 MG DAILY 08/26 1000 AC 08/30 IV 0919 Patient Medication 1 ED .STK-MED ONE 08/30 1431 DC Teaching ED 08/30 1432 Sodium Phosphate 1 UNIT ONCE ONE 08/30 1645 DC 08/30 ND 08/30 1646 1646 Last 24 Hrs of Lab/Klaus Results Last 24 Hrs of Labs/Mics: Laboratory Tests 08/30/16 0635: Anion Gap 10, Estimated GFR > 60, Glucose 104 H, Calcium 8.9, Phosphorus 3.5, Magnesium 1.8, Total Bilirubin 1.4 H, AST 32, ALT 48, Albumin 2.6 L, CBC w Diff NO MAN DIFF REQ, RBC 3.33 L, MCV 89.3, MCH 29.8, RDW 16.3 H, MPV 10.6 H, Gran % 60.3, Lymphocytes % 28.4, Monocytes % 6.4, Eosinophils % 4.5, Basophils % 0.4, Absolute Granulocytes 5.2, Absolute Lymphocytes 2.4, Absolute Monocytes 0.5 , Absolute Eosinophils 0.4, Absolute Basophils 0, PUBS MCHC 33.4 08/29/16 2203: CBC w Diff NO MAN DIFF REQ, RBC 3.26 L, MCV 89.5, MCH 29.9, RDW 16.0 H, MPV 10.1, Gran % 65.2, Lymphocytes % 24.3, Monocytes % 6.5, Eosinophils % 3.8, Basophils % 0.2, Absolute Granulocytes 5.8, Absolute Lymphocytes 2.2, Absolute Monocytes 0.6, Absolute Eosinophils 0.3, Absolute Basophils 0, PUBS MCHC 33.3 Assessment/Plan Assessment: This is an 85-year-old lady on apixaban for PAF, aspirin therapy, poorly controlled HTN, renal stenosis presents with a 7-10 history of black stools/with some diarrhea,lethargy, and is found to have a hemoglobin of 6.9 and a Hct of 20.7. Plan Possible discharge tomorrow to short-term rehabilitation Acute on chronic symptomatic anemia * We will discharge tomorrow with GI outpatient f/u. * Most probably secondary to acute blood loss as patient is reported to have episodes of black tarry stool, and ED staff reports episode of melena. Aspirin use, episodes of black tarry stool /melena and an elevated BUN is suggestive of upper GI bleed which is precipatated by apixaban use, however EGD was unremarkable. colonoscopy was not conlcusive due to significant fecal material. * Patient will need another scope after atleast 2 weeks of aggresive bowel regimen of fleet and tap h20 alternating qod. * might need outpatient Pill CAM study. * Patient has history of chronic anemia , most likely secondary to chronic disease anemia as evident by low iron levels, normal ferritin levels decreased total iron binding capacity. * We'll regularly monitor CBC History of hypertension, * BP better controlled today. * Continue Hydarlazine 5mg, cozaar 50 mg bid, coreg 12.5mg bid. Will add nifedipine xl 30 mg if HTN persits. History of paroxysmal A. fib with a recent right MCA stroke in 2016 * Patient has a [id number] of 8 with a 15.2% risk of stroke/TIA, requiring anticoagulation. However, her HASBLED score is 5 with a 9-12.5 % risk of bleed/ per 100 patients. * Continue apixaban per cadiology since h/h stable. Will reconsider for aspirin. * 1st degree heart block History of diabetes mellitus * Regular monitoring of blood sugar level and NovoLog according to the sliding scale Elevated alk phosphate -we will follow it Diet-regular -Puree and nector DVT prophylaxis-ALP S/Apixaban CODE STATUS-full code Problem List: 1. GI bleed 2. Anemia 3. Diabetes mellitus type 2 4. PAROXYSMAL ATRIAL FIBRILLATION 5. Renal artery stenosis Pain Ratin Pain Location: Lower Back Pain Goal: Remain pain free Pain Plan: Avoid NSAIDs Tomorrow's Labs & Rationales: CBC and BEP for follow-up DVT/Prophylaxis: mechanical, pharmacological
[2016-08-30 08:05] LABS: ABSOLUTE BASOPHIL COUNT 0 /CUMM (0.0-0.2); ABSOLUTE EOSINOPHIL COUNT 0.4 /CUMM (0.0-0.7); ABSOLUTE GRANULOCYTE CT 5.2 /CUMM (1.4-6.5); ABSOLUTE LYMPH COUNT 2.4 /CUMM (1.2-3.4); ABSOLUTE MONOCYTE COUNT 0.5 /CUMM (0.10-0.60); BASOPHIL % 0.4 % (0.0-2.0); EOSINOPHIL % 4.5 % (0-5); GRANULOCYTE % 60.3 % (42.2-75.2); HEMATOCRIT 29.7 % (37-47); MEAN CORPUSCULAR HGB 29.8 PG (27.0-31.0); MEAN CORPUSCULAR HGB CONC 33.4 G/DL (33.0-37.0); MEAN CORPUSCULAR VOLUME 89.3 FL (81.0-99.0); MEAN PLATELET VOLUME 10.6 FL (7.4-10.4); PLATELET COUNT 212 /CUMM (130-400); RBC DISTRIBUTION WIDTH 16.3 % (11.5-14.5); RED BLOOD CELL CT 3.33 /CUMM (4.20-5.40); WHITE BLOOD CELL COUNT 8.6 /CUMM (4.8-10.8)
[2016-08-30 08:24] VITALS: BP 176/78
[2016-08-30 12:47] VITALS: BP 148/64
[2016-08-30 16:46] VITALS: BP 136/72
--- NOTE | 2016-08-30 18:42 | Discharge Summary ---
Visit Information Visit Dates Admission Date: 08/24/16 Discharge Date: 08/31/2016 Hospital Course Course Attending Physician: TRU PAYNE MD Allergies: Coded Allergies: NO KNOWN ALLERGIES (05/29/15) Discharge Instructions Medications at Discharge Discharge Medications: Stop taking the following medications: Insulin Detemir (Levemir) 100 UNIT/ML VIAL Inject into fatty tissue AT BEDTIME Days = 30 Insulin Detemir (Levemir) 100 UNIT/ML VIAL Inject into fatty tissue TWICE DAILY Qty = 10 Continue taking these medications: Losartan Potassium (Losartan Potassium) 50 MG TABLET 1 Tablet ORAL TWICE DAILY Qty = 60 Comments: GIVEN 07/23/16 @ 10 AM Tamsulosin HCl (Tamsulosin HCl) 0.4 MG CAP.ER.24H 1 Capsule ORAL AT BEDTIME Qty = 30 Comments: GIVEN 07/22/16 @ 10:45 PM Gabapentin (Gabapentin) 100 MG CAPSULE 2 Capsule ORAL TWICE DAILY Qty = 60 Comments: GIVEN 07/23/16 @ 10 AM Atorvastatin Calcium (Atorvastatin Calcium) 80 MG TABLET 1 Tablet ORAL 5 PM Qty = 30 Comments: Last Taken: 07/23/16 Time: 6 PM Chlorhexidine Gluconate (Periogard) 0.12 % MOUTHWASH 15 Milliliters ORAL MoWeFr Qty = 473 Comments: GIVEN 07/19/16 @ 5:45 PM Aspirin (Lo-Dose Aspirin EC) 81 MG TABLET.DR 1 Tablet ORAL MoTuFr Comments: GIVEN 07/19/16 @ 5:45 PM Lansoprazole (Prevacid) 30 MG TAB.RAP.DR 1 Tablet ORAL DAILY Qty = 30 Comments: NOT GIVEN Multivitamin (Multi-Day Vitamins) 1 EACH TABLET 1 Tablet ORAL DAILY Comments: GIVEN 07/23/16 @ 10 AM Ferrous Sulfate (IRON) 325 MG (65 MG IRON) TABLET 1 Tablet ORAL DAILY Comments: GIVEN 07/23/16 @ 10 AM Apixaban (Eliquis) 5 MG TABLET 5 Milligram ORAL TWICE DAILY Qty = 30 Comments: GIVEN 07/23/16 @ 10 AM Hydralazine HCl (Hydralazine HCl) 25 MG TABLET 100 Milligram ORAL TWICE DAILY Qty = 60 Comments: GIVEN 07/23/16 @ 10 AM Insulin Aspart (Novolog) 100 UNIT/ML VIAL 0 Units Inject into fatty tissue 3 TIMES DAILY BEFORE MEALS Days = 30 Instructions: 80 - 150 0 units 151 - 200 1 unit 201 - 250 2 units 251 - 300 3 units 301 - 350 4 units 351 - 400 6 units > 400 8 units and call MD Comments: GIVEN 07/23/16 @ 6 PM Start taking the following new medications: Carvedilol (Coreg) 12.5 MG TABLET 12.5 Milligram ORAL TWICE DAILY Qty = 60 No Refills Docusate Sodium (Docusate Sodium) 100 MG CAPSULE 100 Milligram ORAL TWICE DAILY Qty = 60 No Refills
--- NOTE | 2016-08-30 20:28 | PN- Cardiology ---
Subjective Subjective: * Patient states that she feels "no good" * sinus rhythm * H/H is remaining stable * blood pressure is better controlled Objective Vital Signs and I&Os Vital Signs Date Time Temp Pulse Resp B/P B/P Pulse O2 O2 Flow FiO2 Mean Ox Delivery Rate 08/30 1646 99.0 68 20 136/72 97 Room Air 08/30 1254 Room Air Room Air 08/30 1247 62 148/64 08/30 0919 98.1 62 20 190/70 08/30 0918 62 190/70 08/30 0918 98.1 62 20 190/70 08/30 0824 98.1 62 20 176/78 97 Room Air 08/30 0019 100.2 67 18 170/68 97 08/29 2135 67 120/70 08/29 2135 67 120/70 08/29 2134 67 120/70 Intake & Output 08/30 1600 16 0800 08/30 0000 08/29 1600 08/29 0800 08/29 0000 Intake Total 480 300 490 400 880 Output Total 200 500 325 Balance 480 300 290 -100 555 Intake, IV 200 250 400 400 Intake, Oral 480 100 240 480 Output, Urine 200 500 325 Physical Exam: General: WD/ overweight female in NAD; alert and oriented x 3 Neck: no JVD, no carotid bruit Heart: RRR with 2/6 systolic murmur Lungs: clear bilaterally Extremities: no edema Assessment/Plan Assessment/Plan * Patient is in a sinus rhythm. * improved blood pressure on Coreg. Continue current medications * Follow H/H and if stable it is reasonable to continue Eliquis. Continue telemetry? No
[2016-08-30 22:00] VITALS: BP 130/79
--- NOTE | 2016-08-31 07:52 | Transfer of Care Summary ---
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 No report of BRBPR or hematemesis. Reported to have improvement in her dysphagia requiring minimal use of the PEG tube ( No active bleeding or drainage from the PEG tube reported). Last EGD done in for PEG tube placement, was only remarkable for esophagitis, and erosive gastritis with shallow antral ulcerations. Pt daughter also reports that her apixaban dose was previously decreased to 2.5 twice a day due to vaginal bleed that was thought to be secondary to uterine fibroids. The dose was later increased back to 5 mg twice a day. On admission VS stable. Exam: AAO, dry mucous membranes, Abdo: soft, RLQ tenderness, BS+, G-tube site C/D/I. Rectal exam: melena as per ER physician. Labs: H/H 7.7/23 (9-/-35), INR 1.88, bicarb 21, BUN 38, UA clear. Pt was then admitted to ICU for Symptomatic acute anemia most probably 2/2 to acute blood loss. Patient was downgraded to gen med on the third day of ICU stay after being deemed stable (Please refer to Assesment and Plan section for treatment and management). Significant Procedures: EGD: Instrument: diagnostic gastroscope Meds Received: MAC Patient's Tolerance: good Complications: none Extent Reached: second part of duodenum Procedure: Upper endoscopy to the second portion of the duodenum, was performed with the Olympus high definition videoendoscope, after obtaining witnessed telephone informed consent from the patient's daughter, Nhi Landaverde, with the panel monitor and pulse oximeter, with the assistance of Dr. Garner, of [facility]. A mouthpiece was placed in the usual fashion to protect the patient's teeth. The patient was placed in the left lateral decubitus position and sedated by [facility]. At this point , the endoscope was advanced from the mouth into the esophagus, using direct visualization technique. I did not get a good look at the vocal cords. The esophageal mucosa appeared normal. There were no esophageal rings, webs, lesions, strictures, or ulcers. There was no monilia or vesicles. There was no esophageal ribbing. The Z line was well demarcated at 38 cm. There was no hiatal hernia pouch. No significant esophageal inflammation was seen. There were no ectopic islands, nor gross Keen's esophagus. There were no esophageal or gastric varices, nor any Anne Rivas tear. The chinchilla of the stomach distended normally with air insufflation. Direct and retroflexed views of the stomach were performed. There was nothing endoscopically to suggest gastroparesis or portal gastropathy. The mucosa of the gastric cardia, fundus, lesser curvature, incisura, body, and antrum appeared normal, without any gastric ulcers or gastric lesions, aside from the internal bumper of the PEG, located in the gastric body. The pylorus was patent, without any gastric outlet obstruction or channel ulcer. The duodenal bulb and duodenal sweep appeared normal, including the ampulla, without any duodenal ulcers, distal ulcerations, or angiodysplasias. The folds of the second portion of the duodenum were normal in caliber, without any flattening, nodularity, scalloping, or mosaic pattern. * Random biopsies were deferred, as Samuel was still on board. No active upper GI bleeding was seen. The patient tolerated the procedure well. Documenting photographs were obtained, and placed inside the patient's chart. Impression: 1. Normal esophagus with Z line at 38 cm. 2. Internal bumper of PEG seen in gastric body. 3. Otherwise, normal upper endoscopy to the second portion of the duodenum. Colonoscopy: Procedure Date: 08/26/16 Procedure Type: colonoscopy w/biopsy Boxing Instructor: CHIDI ARORA,HOLLY Beckford ASA Classification: III Indications: (*Please refer to my GI consult from 08/25/16). INDX: 85 y/o female with numerous co-morbidities (i.e.- poorly controlled HTN, DM, right MCA CVA with left-sided paralysis & dysphagia post 01/05/16: *PEG, dyslipidemia, osteopenia, DJD, chronic back pain, right renal artery stenosis, remote PE, chronic anemia, paroxysmal atrial flutter, *on outpatient Eliquis & ASA 81 mg daily), admitted 08/24/2016, with *subacute on chronic anemia and melena, with elevated BUN:Cr ratio, albeit with clear return from PEG tube. However, no bile was seen via PEG (rule out channel ulcer and/or DU). The patient has required 2u PRBC to date. There is no family history of GI Ca, GI disease, or inherited liver disease. The patient has never had a baseline colonoscopy, which is being done, as 08/25/16: EGD was negative for bleeding. 08/25/16: EGD to D2- 1. Normal esophagus with Z line at 38 cm. 2. Internal bumper of PEG seen in gastric body. 3. Otherwise, normal upper endoscopy to the second portion of the duodenum. [*In retrospect, the elevated BUN:Cr ratio was probably from dehydration, rather than UGI bleed]. Instrument (Colonoscope): single channel Meds Received: MAC Patient's Tolerance: good Complications: none Extent Reached: terminal ileum Prep: poor Procedure: Baseline colonoscopy to the terminal ileum with biopsies, was performed with the Olympus high-definition videocolonoscope, after obtaining informed consent from the patient's dauughter, Nhi Landaverde, with the panel monitor and pulse oximeter, after 1 gallon of GoLytely via PEG, plus enemas, with the assistance of Dr. Gottlieb, of [facility]. The prep was poor, predominantly in the rectosigmoid region, which had solid stool. The patient was in the left lateral decubitus position throughout the procedure. Direct views of the rectum failed to reveal any external hemorrhoids, fissures or perianal disease. Digital rectal exam was unremarkable, without any masses, aside from the stool, which was partially disimpacted digitally. Sphincter tone was normal. I did not attempt to retroflex in the rectum, due to the stool, & therefore it is difficult to adequately comment on the rectum The colonic mucosa was otherwise carefully inspected as best as possible, within the limits of the prep, both upon insertion and upon withdrawal of the colonoscope. Withdrawal time was certainly adequate. The prep improved above the rectum. Although there was some scattered stool throughout, I was able to clear the vast majority of it above the rectum, via a combination of water jet and disposable brush. The visibility in the right colon was improved. There was moderate pandiverticulosis coli, left side greater than right, from the sigmoid to the cecum. The cecum, base of the appendix, and ileocecal valve were all identified. The last 2 cm of the terminal ileum were entered, and appeared normal. Confirmatory photographs were obtained. Findings of note included a thickened fold in the distal transverse colon at 70 cm, which was equivocal by NBI. As Johannyyola was still on board to a small extent, along with the fact that the prep was poor, a decision was made to only biopsy this: (Specimen A). It was otherwise left intact. The biopsy site was irrigated with the water jet, observed for several minutes postoperatively, and was stable, without any significant bleeding. A decision regarding this will be made after reviewing the pathology. However, the patient will have to be restudied anyway, after an extended cleaned out, along with maintenance enemas. Within the limits of the prep, aside from the thickened fold in the distal transverse colon at 70 cm, and the inability to adequately visualize the rectum due to retained solid stool, the colonic mucosa otherwise appeared intact and within normal limits to the terminal ileum, without any additional mucosal abnormalities, polyps, lesions, gross colitis, ileitis, or angiodysplasias. No active lower GI bleeding was seen. The patient tolerated the procedure well. Documenting photographs were obtained and placed inside the patient's chart. *At the conclusion of the procedure, while the patient was in the recovery room of the GI Suite, the panel monitor showed either SVT @ 230 vs. artifact, as the patient was anxious and shaking. It was hard to get a history from the patient, but there was no definite chest pain or shortness of breath. Her blood pressure remained stable throughout, without any hypotension. I contacted the ICU, as well as Dr. Anthony, was saw the patient in the GI suite. He felt that the rhythm strip was consistent with artifact rather than SVT, & then she went back into her baseline aflutter. Dr. Anthony gave her Lopressor 5 mg IV and she was transferred back to the ICU. Impression: 1. Pandiverticulosis coli, left sided greater than right, from the sigmoid colon to the cecum. 2. *Poor prep, especially in the rectum, which contained solid stool, prohibiting retroflexion. The prep improved proximal to this, and the majority of the proximal stool was washed and suctioned clear, using the water jet and disposable brush. Additionally, the patient was manually disimpacted. The colonoscope was advanced to the terminal ileum, however I cannot comment on the last 10 cm of the rectum, due to poor visibility. 3. Thickened fold in distal transverse colon at 70 cm, equivocal by NBI, biopsied: (Specimen A), but otherwise left intact, as Eliquis was still on board to a small extent, along with the fact that the prep was poor. 4.. THICKENED FOLD, DISTAL TRANSVERSE COLON AT 70 CM, MULTIPLE BIOPSIES, BUT OTHERWISE LEFT INTACT, DUE TO POOR PREP & ELIQUIS STILL ON BOARD: TUBULAR ADENOMA. NEGATIVE FOR INVASIVE CARCINOMA. Assessment/Plan: This is an 85-year-old lady on apixaban for PAF, aspirin therapy, poorly controlled HTN, renal stenosis presents with a 7-10 history of black stools/with some diarrhea,lethargy, and is found to have a hemoglobin of 6.9 and a Hct of 20.7. Impression and Plan * Acute on chronic symptomatic anemia. Required 2units of PRBC on admission with Hgb appropriately responding and stabilizing (from 6.9 to 9.6), additional 1 unit was then given on 08/29 prior to discharge to target a Hgb of 10. Etiology of Acute Anemia was thought to be secondary to acute blood loss as patient is reported to have episodes of black tarry stool, and ED staff reports an episode of melena. Aspirin use, episodes of black tarry stool /melena and an elevated BUN is suggestive of upper GI bleed which is precipatated by apixaban use, however EGD was unremarkable. Colonoscopy was not conclusive for source of bleed due to significant fecal material. There was a thickened fold in distal transverse colon at 70 cm, equivocal by NBI, biopsied and was remarkable for a "tubular adenoma", these findings were discussed with patient's daughter by GI team. Patient will need another scope after atleast 2 weeks of aggresive bowel regimen of fleet and tap h20 alternating qod. She was started on the extend prep while in the hospital (fleet enema alternating with tap h20 qod). It was also reccomended for patient to have 3 days of clear liquids prior to the f/u colonoscopy. GI team reiterated to patient's daughter that she will have to cordinate the pre-procedure planning which including cordinating with Dr Anthony on when to stop anticoagulation/antiplatelet and Boowel Prep. * History of hypertension, BP meds initially held due blood loss. Where then restarted after EGD was unremarkable and patient BP started increasing. Hydarlazine 100 mg bid and cozaar 50 mg bid. In addition, per cardiology reccomendation, coreg 12.5mg po bid was started. It was also reccomended to add nifedipine xl 30 mg if elevated Bp readings persit.. * History of paroxysmal A. fib with a recent right MCA stroke in 2016. Patient has a [id number] of 8 with a 15.2% risk of stroke/TIA, requiring anticoagulation. However, her HASBLED score is 5 with a 9-12.5 % risk of bleed/ per 100 patients. Apixaban and Aspirin were held and after EGD and colonoscopy, GI were ok with restarting the meds, once cleared by Cardiology. Restarted the meds on 08/27 per cadiology since h/h was stable. Post Colonoscopy, while at the GI suite, cardiac monitoring suggested SVT (HR ~200s), Cardiology and ICU team was contacted, pt was found to be asymptomatic. Caridology assesment was that it was Artifact (Lopressor 5 mg IV was administered which lowered HR) * 1st degree heart block * History of right MCA residual left-sided paralysis and oropharyngeal dysphagia. Swallow eval performed with patient being put on Puree diet with [place] liquid consistency. initial Concern of wether patient should need PEG tube feeds. Nutrition consult was obtained, and after observing patient having adequate oral intake, it was determined that pt can continue oral intake with encouragement by home nusring aide and family. * History of diabetes mellitus. * Elevated alk phosphate:Hep Bs Ag, Hep C Ab, & HIV- all negative. GGT was sent out (pending), outpatient serology BLANCA and AMA. Results were discussed with patient's daughter by GI team. F/u reccomended.
[2016-08-31 08:09] LABS: ABSOLUTE BASOPHIL COUNT 0 /CUMM (0.0-0.2); ABSOLUTE EOSINOPHIL COUNT 0.3 /CUMM (0.0-0.7); ABSOLUTE GRANULOCYTE CT 5.5 /CUMM (1.4-6.5); ABSOLUTE LYMPH COUNT 2.6 /CUMM (1.2-3.4); ABSOLUTE MONOCYTE COUNT 0.7 /CUMM (0.10-0.60); BASOPHIL % 0.3 % (0.0-2.0); EOSINOPHIL % 3.7 % (0-5); GRANULOCYTE % 60.2 % (42.2-75.2); HEMATOCRIT 30.1 % (37-47); MEAN CORPUSCULAR HGB 29.9 PG (27.0-31.0); MEAN CORPUSCULAR HGB CONC 33.3 G/DL (33.0-37.0); MEAN CORPUSCULAR VOLUME 89.9 FL (81.0-99.0); MEAN PLATELET VOLUME 10.7 FL (7.4-10.4); PLATELET COUNT 207 /CUMM (130-400); RBC DISTRIBUTION WIDTH 16.1 % (11.5-14.5); RED BLOOD CELL CT 3.35 /CUMM (4.20-5.40); WHITE BLOOD CELL COUNT 9.2 /CUMM (4.8-10.8)
[2016-08-31 09:07] VITALS: BP 174/80
--- NOTE | 2016-08-31 12:28 | PN- Att Addend ---
Attending Addendum Attending Brief Note Patient seen and examined. Resting comfortably and not in any acute distress. No issues overnight on telemetry. He remains afebrile. She offers no complaints this morning. Denies chest or shortness of breath. Denies palpitations. Denies dysuria. Last transfusion was 2 days ago. Hemoglobin level is stable. Gen. appearance: Not in acute distress Heart: S1-S2 regular Lungs: Clear to auscultation bilaterally Abdomen: Soft and nontender Extremity is: No pedal edema. Recommendations: - She is medically stable to be discharged today as earlier planned. - She'll be following up with the gastroenterology service as an outpatient for colonoscopy. - She is continued on anticoagulation therapy with Eliquis as recommended by the geothermal production manager service
--- NOTE | 2016-08-31 12:57 | Discharge Summary ---
Visit Information Visit Dates Admission Date: 08/24/16 Discharge Date: 08/31/2016 Hospital Course Course Attending Physician: KERRY ARORA,TRU Raymond Primary Care Physician: TYLOR ARORA,RAMBO David Consulting Request: Consulting Specialty: Gastroenterology Consulting Physician: Dr. 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 No report of BRBPR or hematemesis. Reported to have improvement in her dysphagia requiring minimal use of the PEG tube ( No active bleeding or drainage from the PEG tube reported). Last EGD done in for PEG tube placement, was only remarkable for esophagitis, and erosive gastritis with shallow antral ulcerations. Pt daughter also reports that her apixaban dose was previously decreased to 2.5 twice a day due to vaginal bleed that was thought to be secondary to uterine fibroids. The dose was later increased back to 5 mg twice a day. On admission VS stable. Exam: AAO, dry mucous membranes, Abdo: soft, RLQ tenderness, BS+, G-tube site C/D/I. Rectal exam: melena as per ER physician. Labs: H/H 7.7/23 (9-11/27-35), INR 1.88, bicarb 21, BUN 38, UA clear. Pt was then admitted to ICU for Symptomatic acute anemia most probably 2/2 to acute blood loss. Patient was downgraded to gen med on the third day of ICU stay after being deemed stable. Significant Procedures: EGD: Instrument: diagnostic gastroscope Meds Received: MAC Patient's Tolerance: good Complications: none Extent Reached: second part of duodenum Procedure: Upper endoscopy to the second portion of the duodenum, was performed with the Olympus high definition videoendoscope, after obtaining witnessed telephone informed consent from the patient's daughter, Nhi Landaverde, with the power press tender and pulse oximeter, with the assistance of Dr. Garner, of [facility]. A mouthpiece was placed in the usual fashion to protect the patient's teeth. The patient was placed in the left lateral decubitus position and sedated by [facility]. At this point , the endoscope was advanced from the mouth into the esophagus, using direct visualization technique. I did not get a good look at the vocal cords. The esophageal mucosa appeared normal. There were no esophageal rings, webs, lesions, strictures, or ulcers. There was no monilia or vesicles. There was no esophageal ribbing. The Z line was well demarcated at 38 cm. There was no hiatal hernia pouch. No significant esophageal inflammation was seen. There were no ectopic islands, nor gross Keen's esophagus. There were no esophageal or gastric varices, nor any Anne Rivas tear. The chinchilla of the stomach distended normally with air insufflation. Direct and retroflexed views of the stomach were performed. There was nothing endoscopically to suggest gastroparesis or portal gastropathy. The mucosa of the gastric cardia, fundus, lesser curvature, incisura, body, and antrum appeared normal, without any gastric ulcers or gastric lesions, aside from the internal bumper of the PEG, located in the gastric body. The pylorus was patent, without any gastric outlet obstruction or channel ulcer. The duodenal bulb and duodenal sweep appeared normal, including the ampulla, without any duodenal ulcers, distal ulcerations, or angiodysplasias. The folds of the second portion of the duodenum were normal in caliber, without any flattening, nodularity, scalloping, or mosaic pattern. * Random biopsies were deferred, as Samuel was still on board. No active upper GI bleeding was seen. The patient tolerated the procedure well. Documenting photographs were obtained, and placed inside the patient's chart. Impression: 1. Normal esophagus with Z line at 38 cm. 2. Internal bumper of PEG seen in gastric body. 3. Otherwise, normal upper endoscopy to the second portion of the duodenum. Colonoscopy: Procedure Date: 08/26/16 Procedure Type: colonoscopy w/biopsy Interlocking Tower Operator: CHIDI ARORA,HOLLY Beckford ASA Classification: III Indications: (*Please refer to my GI consult from 08/25/16). INDX: 85 y/o female with numerous co-morbidities (i.e.- poorly controlled HTN, DM, right MCA CVA with left-sided paralysis & dysphagia post 01/05/16: *PEG, dyslipidemia, osteopenia, DJD, chronic back pain, right renal artery stenosis, remote PE, chronic anemia, paroxysmal atrial flutter, *on outpatient Eliquis & ASA 81 mg daily), admitted 08/24/2016, with *subacute on chronic anemia and melena, with elevated BUN:Cr ratio, albeit with clear return from PEG tube. However, no bile was seen via PEG (rule out channel ulcer and/or DU). The patient has required 2u PRBC to date. There is no family history of GI Ca, GI disease, or inherited liver disease. The patient has never had a baseline colonoscopy, which is being done, as 08/25/16: EGD was negative for bleeding. 08/25/16: EGD to D2- 1. Normal esophagus with Z line at 38 cm. 2. Internal bumper of PEG seen in gastric body. 3. Otherwise, normal upper endoscopy to the second portion of the duodenum. [*In retrospect, the elevated BUN:Cr ratio was probably from dehydration, rather than UGI bleed]. Instrument (Colonoscope): single channel Meds Received: MAC Patient's Tolerance: good Complications: none Extent Reached: terminal ileum Prep: poor Procedure: Baseline colonoscopy to the terminal ileum with biopsies, was performed with the Olympus high-definition videocolonoscope, after obtaining informed consent from the patient's dauughter, Nhi Landaverde, with the power press tender and pulse oximeter, after 1 gallon of GoLytely via PEG, plus enemas, with the assistance of Dr. Gottlieb, of [facility]. The prep was poor, predominantly in the rectosigmoid region, which had solid stool. The patient was in the left lateral decubitus position throughout the procedure. Direct views of the rectum failed to reveal any external hemorrhoids, fissures or perianal disease. Digital rectal exam was unremarkable, without any masses, aside from the stool, which was partially disimpacted digitally. Sphincter tone was normal. I did not attempt to retroflex in the rectum, due to the stool, & therefore it is difficult to adequately comment on the rectum The colonic mucosa was otherwise carefully inspected as best as possible, within the limits of the prep, both upon insertion and upon withdrawal of the colonoscope. Withdrawal time was certainly adequate. The prep improved above the rectum. Although there was some scattered stool throughout, I was able to clear the vast majority of it above the rectum, via a combination of water jet and disposable brush. The visibility in the right colon was improved. There was moderate pandiverticulosis coli, left side greater than right, from the sigmoid to the cecum. The cecum, base of the appendix, and ileocecal valve were all identified. The last 2 cm of the terminal ileum were entered, and appeared normal. Confirmatory photographs were obtained. Findings of note included a thickened fold in the distal transverse colon at 70 cm, which was equivocal by NBI. As Eliquis was still on board to a small extent, along with the fact that the prep was poor, a decision was made to only biopsy this: (Specimen A). It was otherwise left intact. The biopsy site was irrigated with the water jet, observed for several minutes postoperatively, and was stable, without any significant bleeding. A decision regarding this will be made after reviewing the pathology. However, the patient will have to be restudied anyway, after an extended cleaned out, along with maintenance enemas. Within the limits of the prep, aside from the thickened fold in the distal transverse colon at 70 cm, and the inability to adequately visualize the rectum due to retained solid stool, the colonic mucosa otherwise appeared intact and within normal limits to the terminal ileum, without any additional mucosal abnormalities, polyps, lesions, gross colitis, ileitis, or angiodysplasias. No active lower GI bleeding was seen. The patient tolerated the procedure well. Documenting photographs were obtained and placed inside the patient's chart. *At the conclusion of the procedure, while the patient was in the recovery room of the GI Suite, the power press tender showed either SVT @ 230 vs. artifact, as the patient was anxious and shaking. It was hard to get a history from the patient, but there was no definite chest pain or shortness of breath. Her blood pressure remained stable throughout, without any hypotension. I contacted the ICU, as well as Dr. Anthony, was saw the patient in the GI suite. He felt that the rhythm strip was consistent with artifact rather than SVT, & then she went back into her baseline aflutter. Dr. Anthony gave her Lopressor 5 mg IV and she was transferred back to the ICU. Impression: 1. Pandiverticulosis coli, left sided greater than right, from the sigmoid colon to the cecum. 2. *Poor prep, especially in the rectum, which contained solid stool, prohibiting retroflexion. The prep improved proximal to this, and the majority of the proximal stool was washed and suctioned clear, using the water jet and disposable brush. Additionally, the patient was manually disimpacted. The colonoscope was advanced to the terminal ileum, however I cannot comment on the last 10 cm of the rectum, due to poor visibility. 3. Thickened fold in distal transverse colon at 70 cm, equivocal by NBI, biopsied: (Specimen A), but otherwise left intact, as Eliquis was still on board to a small extent, along with the fact that the prep was poor. 4.. THICKENED FOLD, DISTAL TRANSVERSE COLON AT 70 CM, MULTIPLE BIOPSIES, BUT OTHERWISE LEFT INTACT, DUE TO POOR PREP & ELIQUIS STILL ON BOARD: TUBULAR ADENOMA. NEGATIVE FOR INVASIVE CARCINOMA. Hospital course 1. Acute on chronic symptomatic anemia. Required 2units of PRBC on admission with Hgb appropriately responding and stabilizing (from 6.9 to 9.6), additional 1 unit was then given on 08/29 prior to discharge to target a Hgb of 10. Etiology of Acute Anemia was thought to be secondary to acute blood loss as patient is reported to have episodes of black tarry stool, and ED staff reports an episode of melena. Aspirin use, episodes of black tarry stool /melena and an elevated BUN is suggestive of upper GI bleed which is precipatated by apixaban use, however EGD was unremarkable. Colonoscopy was not conclusive for source of bleed due to significant fecal material. There was a thickened fold in distal transverse colon at 70 cm, equivocal by NBI, biopsied and was remarkable for a "tubular adenoma", these findings were discussed with patient's daughter by GI team. Patient will need another scope after atleast 2 weeks of aggresive bowel regimen of fleet and tap h20 alternating qod. She was started on the extend prep while in the hospital (fleet enema alternating with tap h20 qod). It was also reccomended for patient to have 3 days of clear liquids prior to the f/u colonoscopy. GI team reiterated to patient's daughter that she will have to cordinate the pre-procedure planning which including cordinating with Dr Anthony on when to stop anticoagulation/antiplatelet and Boowel Prep. 2. History of hypertension, BP meds initially held due blood loss. Where then restarted after EGD was unremarkable and patient BP started increasing. Hydarlazine 100 mg bid and cozaar 50 mg bid. In addition, per cardiology reccomendation, coreg 12.5mg po bid was started. It was also reccomended to add nifedipine xl 30 mg if elevated Bp readings persit.. 3. History of paroxysmal A. fib with a recent right MCA stroke in 2016. Patient has a [id number] of 8 with a 15.2% risk of stroke/TIA, requiring anticoagulation. However, her HASBLED score is 5 with a 9-12.5 % risk of bleed/ per 100 patients. Apixaban and Aspirin were held and after EGD and colonoscopy, GI were ok with restarting the meds, once cleared by Cardiology. Restarted the meds on 08/27 per cadiology since h/h was stable. Post Colonoscopy, while at the GI suite, cardiac monitoring suggested SVT (HR ~200s), Cardiology and ICU team was contacted, pt was found to be asymptomatic. Caridology assesment was that it was Artifact (Lopressor 5 mg IV was administered which lowered HR) 3. 1st degree heart block 4. History of right MCA residual left-sided paralysis and oropharyngeal dysphagia. Swallow eval performed with patient being put on Puree diet with [place] liquid consistency. initial Concern of wether patient should need PEG tube feeds. Nutrition consult was obtained, and after observing patient having adequate oral intake, it was determined that pt can continue oral intake with encouragement by home nusring aide and family. 5. History of diabetes mellitus. 6. Elevated alk phosphate:Hep Bs Ag, Hep C Ab, & HIV- all negative. GGT was sent out (pending), outpatient serology BLANCA and AMA. Results were discussed with patient's daughter by GI team. F/u reccomended. Complications: Aspiration pneumonia Allergies: Coded Allergies: NO KNOWN ALLERGIES (05/29/15) Significant Procedures: EGD Disposition Summary Disposition Principal Diagnosis: Acute blood loss anemia secondary to GI bleed Additional Diagnosis: History of hypertension History of paroxysmal A. fib History of right MCA stroke History of diabetes mellitus Discharge Disposition: SNF Discharge Instructions General Discharge Information Code Status: Full Code Patient's Diet: Regular diet Patient's Activity: With assistance Follow-Up Instructions/Appts: PLEASE SEEK MEDICAL ATTENTION IF YOU NOTICE ANY BLOOD IN STOOL PLEASE CONTACT DR HARRIS OFFICE (STOMACH DOCTOR), TO ARRANGE PLANS FOR A COLONOSCOPY. PRIOR TO RHE COLONOSCOPY, YOU WILL NEED AN EXTENDED BOWEL CLEANSING, AND 2-3 DAYS OF CLEAR LIQUIDS BEFORE THE PROCEDURE (PLEASE CONTACT DR HARRIS OFFICE ON THE DETAILS). PLEASE FOLLOW UP WITH YOUR PCP WITHIN 1 WEEK YOUR LEVEMIR (LONG ACTING) HAS BEEN TEMPORARY STOPPED, PLEASE CONTACT YOUR PCP AND PESTICIDE APPLICATOR ON WHEN TO RESTART Medications at Discharge Discharge Medications: Stop taking the following medications: Insulin Detemir (Levemir) 100 UNIT/ML VIAL Inject into fatty tissue AT BEDTIME Days = 30 Insulin Detemir (Levemir) 100 UNIT/ML VIAL Inject into fatty tissue TWICE DAILY Qty = 10 Continue taking these medications: Losartan Potassium (Losartan Potassium) 50 MG TABLET 1 Tablet ORAL TWICE DAILY Qty = 60 Comments: GIVEN 07/23/16 @ 10 AM Tamsulosin HCl (Tamsulosin HCl) 0.4 MG CAP.ER.24H 1 Capsule ORAL AT BEDTIME Qty = 30 Comments: GIVEN 07/22/16 @ 10:45 PM Gabapentin (Gabapentin) 100 MG CAPSULE 2 Capsule ORAL TWICE DAILY Qty = 60 Comments: GIVEN 07/23/16 @ 10 AM Atorvastatin Calcium (Atorvastatin Calcium) 80 MG TABLET 1 Tablet ORAL 5 PM Qty = 30 Comments: Last Taken: 07/23/16 Time: 6 PM Chlorhexidine Gluconate (Periogard) 0.12 % MOUTHWASH 15 Milliliters ORAL MoWeFr Qty = 473 Comments: GIVEN 07/19/16 @ 5:45 PM Aspirin (Lo-Dose Aspirin EC) 81 MG TABLET. 1 Tablet ORAL MoTuFr Comments: GIVEN 07/19/16 @ 5:45 PM Lansoprazole (Prevacid) 30 MG TAB.RAP. 1 Tablet ORAL DAILY Qty = 30 Comments: NOT GIVEN Multivitamin (Multi-Day Vitamins) 1 EACH TABLET 1 Tablet ORAL DAILY Comments: GIVEN 07/23/16 @ 10 AM Ferrous Sulfate (IRON) 325 MG (65 MG IRON) TABLET 1 Tablet ORAL DAILY Comments: GIVEN 07/23/16 @ 10 AM Apixaban (Eliquis) 5 MG TABLET 5 Milligram ORAL TWICE DAILY Qty = 30 Comments: GIVEN 07/23/16 @ 10 AM Hydralazine HCl (Hydralazine HCl) 25 MG TABLET 100 Milligram ORAL TWICE DAILY Qty = 60 Comments: GIVEN 07/23/16 @ 10 AM Insulin Aspart (Novolog) 100 UNIT/ML VIAL 0 Units Inject into fatty tissue 3 TIMES DAILY BEFORE MEALS Days = 30 Instructions: 80 - 150 0 units 151 - 200 1 unit 201 - 250 2 units 251 - 300 3 units 301 - 350 4 units 351 - 400 6 units > 400 8 units and call MD Comments: GIVEN 07/23/16 @ 6 PM Start taking the following new medications: Carvedilol (Coreg) 12.5 MG TABLET 12.5 Milligram ORAL TWICE DAILY Qty = 60 No Refills Docusate Sodium (Docusate Sodium) 100 MG CAPSULE 100 Milligram ORAL TWICE DAILY Qty = 60 No Refills Copies To: TYLOR ARORA,RAMBO David
[2016-08-31 13:44] VITALS: BP 150/84
== END 2016-08-31 15:30 | DRG 378 ==
LOC: ERH 20:39 → ERHI 23:13 → CRI 23:13 → ENRESERV 08-25 00:15 → CRI 08-25 01:35 → 1NO 08-29 19:34 → ENPENDDIS 08-31 11:02 → 1NO 08-31 15:30
PROVIDERS: Emergency Medicine; Internal Medicine; Student in an Organized Health Care Education/Training Program; ADMIT Student in an Organized Health Care Education/Training Program
PROC: 30233N1 Transfusion of Nonautologous Red Blood Cells into Peripheral Vein, Percutaneous Approach (ICD-10-PCS; principal; 2016-08-25)
PROC: 0DJ08ZZ Inspection of Upper Intestinal Tract, Via Natural or Artificial Opening Endoscopic (ICD-10-PCS; 2016-08-25)
PROC: 0DBL8ZX Excision of Transverse Colon, Via Natural or Artificial Opening Endoscopic, Diagnostic (ICD-10-PCS; 2016-08-26)
PROC: 30233N1 Transfusion of Nonautologous Red Blood Cells into Peripheral Vein, Percutaneous Approach (ICD-10-PCS; 2016-08-29)
DX: K92.2 Gastrointestinal hemorrhage, unspecified (principal); D62 Acute posthemorrhagic anemia; E46 Unspecified protein-calorie malnutrition; I48.92 Unspecified atrial flutter; I69.354 Hemiplegia and hemiparesis following cerebral infarction affecting left non-dominant side; I70.1 Atherosclerosis of renal artery; Z79.01 Long term (current) use of anticoagulants; Z68.30 Body mass index [BMI] 30.0-30.9, adult; I44.0 Atrioventricular block, first degree; E78.5 Hyperlipidemia, unspecified; Z79.82 Long term (current) use of aspirin; K57.90 Diverticulosis of intestine, part unspecified, without perforation or abscess without bleeding; E11.9 Type 2 diabetes mellitus without complications; Z79.4 Long term (current) use of insulin; I69.391 Dysphagia following cerebral infarction; I10 Essential (primary) hypertension; D12.3 Benign neoplasm of transverse colon
CPT/HCPCS: 1NP; CCU; ERO; 36415; 74176; 81003; 82436; 86902; 86920; 86922; 87045; 87086; 87088; 87147; 88305; 93005; 93010; 96374; J0360; J2405; J7042; J7060; P9016

== ENCOUNTER 2017-05-08 12:25 | Inpatient (IN) | payer OTHER, MEDICARE ==
[~2017-05-08] VITALS: Ht 157.5 cm; Wt 63.5 kg
[~2017-05-08 12:25] MED LIST changes: +CEFUROXIME500 MG PO; +COREG12.5 M1 PO; +DOCUSATE SODIU100 M3 PO; +DULCOLAX10 M1 PR; +FLEET ENEMA133 ML RC; +LACTULOSE10 GM/153 PO; +MIRALAX119 GM PO; +MULTIVITAMINS1 EAC8 PO; +PANTOPRAZOLE SO40 M1 PO; +PROBIOTIC1 EACH PO; +RENAL CAPS SOFTG1 MG PO; +SENNA PLUS TAB1 EACH PO; +SERTRALINE HCL25 MG PO; +SUPER B-50 COM1 EACH PO; +TRAMADOL HCL50 M1 PO; +TRAZODONE HCL50 M1 PO; +VITAMIN B-121000 MC3 PO; +VITAMIN D250000 UNIT PO
--- NOTE | 2017-05-08 12:47 | ED GENERAL ADULT ---
History of Present Illness General Chief Complaint: General Adult Stated Complaint: HYPOGLYCEMIA Source: family Exam Limitations: not alert/orientated Allergies Coded Allergies: NO KNOWN ALLERGIES (05/29/15) Reconcile Medications Apixaban (Eliquis) 2.5 MG TABLET 1 TAB PO BID BLOOD THINNR (Reported) Atorvastatin Calcium 80 MG TABLET 1 TAB PO 1700 HLD (Reported) Carvedilol 3.125 MG TABLET 1 TAB PO BID HEART (Reported) Ergocalciferol (Vitamin D2) (Vitamin D2) 50,000 UNIT CAPSULE 1 CAP PO QFRI SUPPLEMENT (Reported) Ferrous Sulfate (IRON) 325 MG (65 MG IRON) TABLET 1 TAB PO DAILY SUPPLEMENT ( Reported) Gabapentin 100 MG CAPSULE 2 CAP PO BID NEUROPATHIC PAIN (Reported) Hydralazine HCl 50 MG TABLET 1 TAB PO TID HEART (Reported) Lactobacillus Acidophilus (Probiotic) 10 BILLION CELL CAPSULE 1 CAP PO DAILY PROBIOTIC (Reported) Losartan Potassium 50 MG TABLET 1 TAB PO BID HEART/BP (Reported) Multivitamin (Multivitamins) 1 EACH CAPSULE 1 TAB PO DAILY SUPPLEMENT ( Reported) Pantoprazole Sodium 40 MG TABLET.DR 1 TAB PO DAILY GI (Reported) Sertraline HCl 25 MG TABLET 1 TAB PO DAILY MENTAL HEALTH (Reported) Vitamin B Complex (Super B-50 Complex) 1 EACH CAPSULE 1 CAP PO DAILY SUPPLEMENT (Reported) Triage Note: PT BIBA FROM HOME. FAMILY FOUND PT UNRESPONSIVE THIS MORNING AND CALLED [facility] WHO WENT TO THE HOUSE AND CHECK VITALS AND BLOOD SUGAR AND CALLED 911. EMS ARRIVED AND BLOOD SUGAR WAS 25, PT WAS ADMINISTERED 25GRAMS OF D10. 1 MG GLUCAGON. IV EST #20 LAC. INSULIN DEPENDENT DM. PER EMS NORMAL TO BASELINE MENTATION Triage Nurses Notes Reviewed? yes Onset: Abrupt Duration: minute(s): Timing: single episode today Injury Environment: home Severity: severe HPI: 86yo female with hx of prior CVA, a fib on eliquis, Type 2 DM, BIBA for hypoglycemic event prior to arrival. Patient's reports that patient has had diarrhea 3 days and vomiting beginning this morning. Patient was found unresponsive and called EMS, when they arrived on scene patient's blood glucose was 25. Patient medicated with 25 g D10 and 1MG glucagon with repeat blood sugar in 120s. HPI is obtained from patient's and EMS due to patient's current mental status. Patient is not answering questions, states that she typically can answer some questions however not oriented to time. reports the patient has been complaining of a headache intermittently since yesterday and abdominal pain. (Lisa HUGHES,Lisa Burger) Vital Signs & Intake/Output Vital Signs & Intake/Output Vital Signs Date Time Temp Pulse Resp B/P B/P Pulse O2 O2 Flow FiO2 Mean Ox Delivery Rate 05/09 1402 98.5 64 15 124/60 98 Room Air 05/09 1354 64 124/60 05/09 1231 Room Air 05/09 1231 Room Air 05/09 1216 Room Air 05/09 1132 58 152/54 05/09 0728 98.9 59 18 150/68 96 Room Air 05/08 2315 66 124/60 05/08 2216 99.0 66 20 124/60 95 Room Air 05/08 1951 99.0 67 20 122/60 95 Room Air 05/08 1948 Room Air 05/08 1851 Room Air 05/08 1739 98.1 76 16 158/69 99 Room Air ED Intake and Output 05/09 0000 05/08 1200 Intake Total Output Total 300 Balance -300 Number 1 Bowel Movements Output, Urine 300 Patient 140 lb Weight Weight Bed scale Measurement Method (Valerie ARORA,Jovany David) Past History Travel History Traveled to [place] past 21 day No Medical History Any Pertinent Medical History? see below for history Neurological: NONE (R MCA with L ben), CVA, dementia EENT: cataracts, epistaxis Cardiovascular: AFIB, hypertension, hyperlipidemia, varicose veins Respiratory: pulmonary embolism (remote), pulmonary edema Gastrointestinal: constipation, ACID REFLUX Post PEG pandiverticulosis coli, L> R Hx colon adenoma Hepatic: NONE Renal: RIGHT RENAL ARTERY STENOSIS Musculoskeletal: chronic back pain, disk herniation, osteoarthritis, Back surgery osteopenia Psychiatric: depression (post CVA) Endocrine: obesity, vitamin D deficiency, DM Blood Disorders: anemia, PE (remotely- details unknown) Cancer(s): NONE 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 MOTHER (MVA). , Age 30-40; Cause: MVA (motor vehicle accident). FATHER, , Age 30-40; Cause: MVA (motor vehicle accident). Hx Contributory? No (Lisa HUGHES,Lisa Burger) Review of Systems Review of Systems Constitutional: Reports: see HPI. EENTM: Reports: no symptoms. Respiratory: Reports: no symptoms. Cardiovascular: Reports: no symptoms. GI: Reports: see HPI. Genitourinary: Reports: no symptoms. Musculoskeletal: Reports: no symptoms. Skin: Reports: no symptoms. Neurological/Psychological: Reports: see HPI. Hematologic/Endocrine: Reports: see HPI. Immunologic/Allergic: Reports: no symptoms. All Other Systems: Reviewed and Negative (Lisa HUGHES,Lisa Burger) Physical Exam Physical Exam General Appearance: well developed/nourished, awake Head: atraumatic, normal appearance Eyes: Bilateral: normal appearance, PERRL (patient uncooperative). Ears, Nose, Throat: hearing grossly normal Neck: normal inspection, supple, full range of motion, no midline tenderness Respiratory: normal breath sounds, no respiratory distress, lungs clear Cardiovascular: regular rate/rhythm Peripheral Pulses: 2+ radial (R), 2+ radial (L) Gastrointestinal: normal bowel sounds, soft, G tube in place, obese, generalized abdominal tenderness Back: normal inspection, normal range of motion Neurologic/Psych: awake, patient currently nonverbal but awake, does not participate in neuro exam Skin: intact, normal color, warm/dry Core Measures ACS in differential dx? Yes CVA/TIA Diagnosis: No Sepsis Present: No Sepsis Focused Exam Completed? No (Lisa HUGHES,Lisa Burger) Progress Differential Diagnoses I considered the following diagnoses in my evaluation of the patient: [Colitis, SBO, hypoglycemia, sepsis, ICH/CVA, UTI, dehydration, electrolyte abnormality] Diagnostic Imaging: Viewed by Me: CT Scan. Discussed w/RAD: CT Scan. Radiology Impression: PATIENT: CHAMP COBIAN PRESENT AGE: 86 PATIENT ACCOUNT NO: [id number] : 29 LOCATION: [facility] ORDERING PHYSICIAN: Lisa HUGHES SERVICE DATE: 05/08/17-2219 EXAM TYPE: CAT - CT HEAD WO IV CONTRAST EXAMINATION: CT HEAD WITHOUT CONTRAST CLINICAL INFORMATION: 86-year-old patient with prior CVA presenting with headache. COMPARISON: CT the brain on 11/20/2016. TECHNIQUE: Contiguous axial imaging was performed from the skull base to vertex without intravenous administration of contrast. DLP: 614 mGy-cm FINDINGS: There is no evidence of acute intracranial hemorrhage or territorial infarction. No abnormal mass effect or midline shift is seen. Francis to white matter differentiation is well preserved. No extra-axial fluid collections are identified. There is ex vacuo enlargement of the right lateral ventricle secondary to the old cerebral infarction in the right frontoparietal region. The encephalomalacia secondary to the old right MCA infarct is unchanged. A punctate calcification is seen within this region. The ventricles and sulci are concordant. No additional abnormal attenuation is seen within the brain parenchyma. The osseous structures and soft tissues are normal. The mastoid air cells and visualized portions of the paranasal sinuses are well aerated. The supraclinoid portions of both internal carotid arteries are heavily calcified. IMPRESSION: Area of encephalomalacia involving the right frontoparietal region in the distribution of the right MCA. No interval change. Age-related cerebral atrophy. No acute intracranial process. DICTATED BY: Weston Alexandre MD DATE/TIME DICTATED:05/08/171508 DYE WORKER:ZOHREH DATE /TIME TRANSCRIBED:05/08/171508 CONFIDENTIAL, DO NOT COPY WITHOUT APPROPRIATE AUTHORIZATION. <Electronically signed in Other Vendor System> SIGNED BY: Weston Alexandre MD 05/08/17 1523, PATIENT: CHAMP COBIAN PRESENT AGE: 86 PATIENT ACCOUNT NO: [id number] : 29 LOCATION: [facility] ORDERING PHYSICIAN: Lisa HUGHES SERVICE DATE: 05/08/17-1301 EXAM TYPE: CAT - CT ABD & PELVIS W IV CONTRAST EXAMINATION: CT ABDOMEN AND PELVIS WITH CONTRAST CLINICAL INFORMATION: Diarrhea, vomiting, abdominal pain. COMPARISON: 02/01/2017 TECHNIQUE: Multidetector volumetric imaging was performed of the abdomen and pelvis following IV administration of 95 mL of Optiray 320 intravenous contrast. Sagittal and coronal reformatted images were obtained on the technologist's workstation. DLP: 544 mGy-cm FINDINGS: LUNG BASES: The visualized lung bases are unremarkable. LIVER, GALLBLADDER, AND BILIARY TREE: The liver is normal in size, shape, and attenuation. No focal hepatic lesion or biliary ductal dilatation is present. The gallbladder is unremarkable with no evidence of radiopaque gallstones, gallbladder wall thickening, or obvious pericholecystic inflammatory changes. PANCREAS: Unremarkable. SPLEEN: Unremarkable. ADRENAL GLANDS: Unremarkable. KIDNEYS AND URETERS: Bilateral renal cysts. Nephrograms are symmetric. No hydronephrosis. BLADDER: Decompressed. Unremarkable. GASTROINTESTINAL TRACT: Prominent formed stool distends the rectum with perirectal stranding and edema in the presacral fat which has slightly decreased. A PEG tube remains in place. Small and large bowel loops appear otherwise unremarkable. ABDOMINAL WALL: No significant hernia is appreciated. LYMPH NODES: Normal. VASCULAR: Atherosclerotic calcifications. PELVIC VISCERA: Enlarged fibroid uterus, similar to previous. OSSEOUS STRUCTURES: No suspicious lesions. IMPRESSION: The rectum remains distended with stool with presacral edema and inflammatory stranding suggesting stercoral colitis. The edema/ stranding has slightly improved. No additional new or significant finding. DICTATED BY: Manuel Santos MD DATE/TIME DICTATED:05/08/171506 DYE WORKER:ZOHREH DATE/TIME TRANSCRIBED:05/08/171506 CONFIDENTIAL, DO NOT COPY WITHOUT APPROPRIATE AUTHORIZATION. <Electronically signed in Other Vendor System> SIGNED BY: Manuel Santos MD 05/08/17 1540 Initial ED EKG: atrial fibrillation, rate 65, nonspecific ST changes Prior EKG: unchanged (02/07/17) (Lisa HUGHES,Lisa Burger) Plan of Care: Orders Procedure Date/time Status Consistent Carbohydrate 3 05/09 B Active MISSING MEDICATION FORM 05/09 1211 Active GLUCOSE 05/09 0755 Complete CORTISOL AM 05/09 0755 Complete PRE-ALBUMIN 05/09 0655 Complete INSULIN,SERUM 05/09 0617 Complete C-PEPTIDE Ref$ 05/09 0617 Active CBC WITHOUT DIFFERENTIAL 05/09 0600 Complete BASIC ELECTROLYTES PLUS BUN&CR 05/09 0600 Complete SWALLOW EVALUATION 05/09 UNK Active Lab Add-on Test 05/09 UNK Active MISTAKE 05/09 UNK Active Nursing Misc 05/09 UNK Active Saline Lock 05/08 2112 Active Pathway - chart 05/08 2112 Active House Staff 05/08 2112 Active NUTRITIONAL CONSULT 05/08 2112 Active Code Status 05/08 2112 Active Drains/Tubes 05/08 2020 Active Turn and Reposition 05/08 2019 Active Skin Integrity Protocol 05/08 2019 Active Vital Signs 05/08 1946 Active Teach/Educate 05/08 1946 Active Pain Treatment and Response 05/08 1946 Active Nutritional Intake, Monitor 05/08 1946 Active Isolation 05/08 1946 Active Intake & Output 05/08 1946 Active Patient Care Conference 05/08 1946 Active Activity/Ambulation 05/08 1946 Active Patient Data 05/08 1835 Active Misc Message 05/08 1744 Active ED Holding Orders 05/08 1744 Active Admit to inpatient 05/08 1744 Active Vital Signs 05/08 1744 Active Code Status 05/08 1744 Complete ED- NURSING MISC 05/08 1734 Active FingerStick- Glucose 05/08 1650 Complete Intake & Output 05/08 1348 Active VTE Mechanical Prophylaxis 05/08 UNK Active Vital Signs 05/08 UNK Complete Intake & Output 05/08 UNK Complete FingerStick- Glucose 05/08 UNK Active Current Medications Sig/Renee Start time Last Medication Dose Stop Time Status Admin Atorvastatin Calcium 80 MG 1700 05/09 1700 AC (Lipitor) Losartan Potassium 25 MG DAILY 05/09 1207 AC 05/09 (Cozaar) 1354 Sertraline HCl 25 MG DAILY 05/09 1207 AC 05/09 (Zoloft) 1348 Omeprazole 40 MG DAILY AC 05/09 0700 AC (Prilosec) Apixaban 2.5 MG BID 05/08 2199 AC 05/09 (Eliquis) 1132 Carvedilol 3.125 MG BID 05/08 220 AC 05/09 (Coreg) 1132 Acetaminophen 650 MG Q6P PRN 05/08 2114 AC (Tylenol) Acetaminophen 1,000 MG Q6P PRN 05/08 2114 AC (Ofirmev) Dextrose/Sodium 1,000 ML .Q20H 05/08 2114 AC 05/08 Chloride 2315 (D5W-1/2 Normal Saline 1000ML) Laboratory Tests 05/09/17 0755: Glucose 108 H, Insulin Level 19.8, Cortisol AM Sample 14.5 05/09/17 0755: C-Peptide Pending 05/09/17 0655: Anion Gap 8, Estimated GFR 59 L, BUN/Creatinine Ratio 38.9 H, Prealbumin 15.8 L, CBC w Diff NO MAN DIFF REQ, RBC 3.10 L, MCV 91.5, MCH 30.5, MCHC 33.4, RDW 14.8 H, MPV 11.7 H, Gran % 59.2, Lymphocytes % 29.9, Monocytes % 7.6, Eosinophils % 2.8, Basophils % 0.5, Absolute Granulocytes 5.8, Absolute Lymphocytes 2.9, Absolute Monocytes 0.7 H, Absolute Eosinophils 0.3, Absolute Basophils 0 CT scan with stercoral colitis. Will discuss these findings with GI. Repeat exam patient is now speaking however difficult to understand given her thick accent. Patient reports she has abdominal pain and right knee pain. Patient is oriented to place and person, not oriented to time. 5:06 - blood glucose <50. Patient medicated with dextrose. Given patient's persistent hypoglycemia will admit to general medicine for further take control of blood sugar and evaluation. This patient requires repeat labs, frequent fingerstick glucose levels, GI consult given stercoral colitis. Discussed this patient with Dr. White regarding general medicine admission. Dr. Padilla present to see and evaluate patient. (Lisa Merlos) (Valerie ARORA,Jovany David) Departure Departure Disposition: STILL A PATIENT Condition: Stable Clinical Impression Primary Impression: Hypoglycemia Secondary Impressions: Colitis, Vomiting and diarrhea Referrals: Unknown (PCP/Family) Departure Forms: Customer Survey General Discharge Information Admission Note Spoke With: Malissa White MD Documentation of Exam: Documentation of any treatments & extenuating circumstances including Concerns Regarding Discharge (functional status, medication knowledge or non-compliance, living conditions, etc.) that warrant an admission rather than observation: [ Persistent hypoglycemia requiring tight glucose control, frequent finger stick glucose checks, IV dextrose, repeat labs, possible GI consult given oral colitis , premature discharge would be medically unsafe] (Lisa Merlos) PA/BALANCE WHEEL SCREW HOLE TAPPER Co-Sign Statement Statement: ED Attending supervision documentation- [x] I saw and evaluated the patient. I have also reviewed all the pertinent lab results and diagnostic results. I agree with the findings and the plan of care as documented in the PA's/BALANCE WHEEL SCREW HOLE TAPPER's documentation. pt presents for eval of hypoglycemia and unresponsiveness. exam reveals a nonfocal exam and mild right sided tenderness. [] I have reviewed the ED Record and agree with the PA's/BALANCE WHEEL SCREW HOLE TAPPER's documentation. [] Additions or exceptions (if any) to the PAs/BALANCE WHEEL SCREW HOLE TAPPER's note and plan are summarized below: [] (Valerie ARORA,Jovany David) Critical Care Note Critical Care Note Critical Care Time: 30-74 min (Lisa HUGHES,Lisa Burger)
[2017-05-08 13:30] LABS: ABSOLUTE BASOPHIL COUNT 0 /CUMM (0.0-0.2); ABSOLUTE EOSINOPHIL COUNT 0 /CUMM (0.0-0.7); ABSOLUTE GRANULOCYTE CT 11.3 /CUMM (1.4-6.5); ABSOLUTE LYMPH COUNT 1.4 /CUMM (1.2-3.4); ABSOLUTE MONOCYTE COUNT 0.8 /CUMM (0.10-0.60); BASOPHIL % 0.3 % (0.0-2.0); EOSINOPHIL % 0.1 % (0-5); GRANULOCYTE % 82.9 % (42.2-75.2); MEAN CORPUSCULAR HGB 30.4 PG (27.0-31.0); MEAN CORPUSCULAR HGB CONC 33.3 G/DL (33.0-37.0); MEAN CORPUSCULAR VOLUME 91.3 FL (81.0-99.0); MEAN PLATELET VOLUME 10.8 FL (7.4-10.4); PLATELET COUNT 203 /CUMM (130-400); RBC DISTRIBUTION WIDTH 14.8 % (11.5-14.5); RED BLOOD CELL CT 3.39 /CUMM (4.20-5.40); WHITE BLOOD CELL COUNT 13.6 /CUMM (4.8-10.8)
[2017-05-08] MEDS ORDERED: CARVEDILOL3.125 M1 PO (14:34)
--- NOTE | 2017-05-08 15:23 | CT SCAN REPORT ---
EXAMINATION: CT HEAD WITHOUT CONTRAST CLINICAL INFORMATION: 86-year-old patient with prior CVA presenting with headache. COMPARISON: CT the brain on 11/20/2016. TECHNIQUE: Contiguous axial imaging was performed from the skull base to vertex without intravenous administration of contrast. DLP: 614 mGy-cm FINDINGS: There is no evidence of acute intracranial hemorrhage or territorial infarction. No abnormal mass effect or midline shift is seen. Francis to white matter differentiation is well preserved. No extra-axial fluid collections are identified. There is ex vacuo enlargement of the right lateral ventricle secondary to the old cerebral infarction in the right frontoparietal region. The encephalomalacia secondary to the old right MCA infarct is unchanged. A punctate calcification is seen within this region. The ventricles and sulci are concordant. No additional abnormal attenuation is seen within the brain parenchyma. The osseous structures and soft tissues are normal. The mastoid air cells and visualized portions of the paranasal sinuses are well aerated. The supraclinoid portions of both internal carotid arteries are heavily calcified. IMPRESSION: Area of encephalomalacia involving the right frontoparietal region in the distribution of the right MCA. No interval change. Age-related cerebral atrophy. No acute intracranial process.
--- NOTE | 2017-05-08 15:40 | CT SCAN REPORT ---
EXAMINATION: CT ABDOMEN AND PELVIS WITH CONTRAST CLINICAL INFORMATION: Diarrhea, vomiting, abdominal pain. COMPARISON: 02/01/2017 TECHNIQUE: Multidetector volumetric imaging was performed of the abdomen and pelvis following IV administration of 95 mL of Optiray 320 intravenous contrast. Sagittal and coronal reformatted images were obtained on the technologist's workstation. DLP: 544 mGy-cm FINDINGS: LUNG BASES: The visualized lung bases are unremarkable. LIVER, GALLBLADDER, AND BILIARY TREE: The liver is normal in size, shape, and attenuation. No focal hepatic lesion or biliary ductal dilatation is present. The gallbladder is unremarkable with no evidence of radiopaque gallstones, gallbladder wall thickening, or obvious pericholecystic inflammatory changes. PANCREAS: Unremarkable. SPLEEN: Unremarkable. ADRENAL GLANDS: Unremarkable. KIDNEYS AND URETERS: Bilateral renal cysts. Nephrograms are symmetric. No hydronephrosis. BLADDER: Decompressed. Unremarkable. GASTROINTESTINAL TRACT: Prominent formed stool distends the rectum with perirectal stranding and edema in the presacral fat which has slightly decreased. A PEG tube remains in place. Small and large bowel loops appear otherwise unremarkable. ABDOMINAL WALL: No significant hernia is appreciated. LYMPH NODES: Normal. VASCULAR: Atherosclerotic calcifications. PELVIC VISCERA: Enlarged fibroid uterus, similar to previous. OSSEOUS STRUCTURES: No suspicious lesions. IMPRESSION: The rectum remains distended with stool with presacral edema and inflammatory stranding suggesting stercoral colitis. The edema/stranding has slightly improved. No additional new or significant finding.
[2017-05-08 19:51] VITALS: BP 122/60
--- NOTE | 2017-05-08 20:20 | History & Physical ---
Anais Le MD 05/08/17 2019: General Information and HPI MD Statement: I have seen and personally examined CHAMP LANDAVERDE and documented this H&P. The patient is a 86 year old F who presented with a patient stated chief complaint of [hypoglycemia and unresponsiveness]. Source of Information: patient, family, old records Exam Limitations: poor historian History of Present Illness: 86 yo F with PMH of A.fib, hypertension, hyperlipidemia, GERD, right CVA with left hemiplegia, DM, Anemia, renal artery stenosis, chronic back pain, constipation was brought in to the ED by ambulance. The patient is confused and most of the history was obtained from her and her daughter over the phone. Her checked her blood sugar this morning around 7 AM which was 94, and blood pressure was in the 200. He remeasured blood sugar at 8:30 was 64 and the patient was unresponsive with labored breathing. Again at 10:30 blood sugar was 40, still was unresponsive however her breathing improved. He called home care, vital signs were checked, blood sugar was found to be very low they called 911, and the patient was mainly EIB to the hospital. The patient reports chest pain, headache, diarrhea, vomiting, left-sided paralysis Patient denies fever, chills, cough, dysuria, Of note the patient was admitted to [facility] last February for same complaints of weakness and unresponsiveness and was found to have UTI which was treated with antibiotics for 10 days, and her insulin was held on discharge, the patient was discharged to [facility], was recently discharged home. Patient has history of CVA with left hemiplegia, has PEG tube, she receives nutrition by mouth and through the PEG tube which was placed in 2014, her diet is ground fluid plus thin liquid Patient lives home and has 24-hour AID ED course: In the ED blood sugar on admission was 25, she was administered 25 gm Dextrose, 1 mg glucagon Vital signs on admission: Blood pressure 122/60, pulse 67, temperature 90.9, pulse ox 95 on room air Labs on admission: WBC 13.6, hemoglobin 10.3, platelets is 203, sodium 147, potassium 3.7, BUN 43, creatinine 1.1, glucose 95, urine analysis was normal, her U tox was negative Allergies/Medications Allergies: Coded Allergies: NO KNOWN ALLERGIES (05/29/15) Home Med list Apixaban (Eliquis) 2.5 MG TABLET 1 TAB PO BID BLOOD THINNR (Reported) Atorvastatin Calcium 80 MG TABLET 1 TAB PO 1700 HLD (Reported) Carvedilol 3.125 MG TABLET 1 TAB PO BID HEART (Reported) Ergocalciferol (Vitamin D2) (Vitamin D2) 50,000 UNIT CAPSULE 1 CAP PO QFRI SUPPLEMENT (Reported) Ferrous Sulfate (IRON) 325 MG (65 MG IRON) TABLET 1 TAB PO DAILY SUPPLEMENT ( Reported) Gabapentin 100 MG CAPSULE 2 CAP PO BID NEUROPATHIC PAIN (Reported) Hydralazine HCl 50 MG TABLET 1 TAB PO TID HEART (Reported) Lactobacillus Acidophilus (Probiotic) 10 BILLION CELL CAPSULE 1 CAP PO DAILY PROBIOTIC (Reported) Losartan Potassium 50 MG TABLET 1 TAB PO BID HEART/BP (Reported) Multivitamin (Multivitamins) 1 EACH CAPSULE 1 TAB PO DAILY SUPPLEMENT ( Reported) Pantoprazole Sodium 40 MG TABLET.DR 1 TAB PO DAILY GI (Reported) Sertraline HCl 25 MG TABLET 1 TAB PO DAILY MENTAL HEALTH (Reported) Vitamin B Complex (Super B-50 Complex) 1 EACH CAPSULE 1 CAP PO DAILY SUPPLEMENT (Reported) Past History Travel History Traveled to [place] past 21 day No Medical History Blood Transfusion Hx: No Neurological: CVA, dementia EENT: cataracts, epistaxis Cardiovascular: AFIB, hypertension, hyperlipidemia, varicose veins Respiratory: pulmonary embolism (remote), pulmonary edema Gastrointestinal: constipation, ACID REFLUX Post PEG pandiverticulosis coli, L> R Hx colon adenoma Hepatic: NONE Renal: RIGHT RENAL ARTERY STENOSIS Musculoskeletal: chronic back pain, disk herniation, osteoarthritis, Back surgery osteopenia Psychiatric: depression (post CVA) Endocrine: obesity, vitamin D deficiency, DM Blood Disorders: anemia Cancer(s): NONE 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 MOTHER (MVA). , Age 30-40; Cause: MVA (motor vehicle accident). FATHER, , Age 30-40; Cause: MVA (motor vehicle accident). Psychosocial History Where do you live? Home Who Do You Live With? spouse ( & dtr, Nhi Landaverde), child Services at Home: Home Health Aide, Nursing Primary Language: German, Pashto Smoking Status: Never Smoked ETOH Use: denies use Illicit Drug Use: denies illicit drug use Living Will? no Power of Oyster Unloader/HCP? no Functional Ability ADLs Needs Assist: dressing, eating, toileting, bathing. Ambulation: cane, walker IADLs Needs Assist: shopping, housework, finances, food prep, telephone, transportation, medication admin. Review of Systems Review of Systems Constitutional: Reports: see HPI, malaise, weakness. Denies: chills, diaphoresis, fever. Cardiovascular: Reports: chest pain. Denies: edema, orthopena, palpitations, peripheral edema. Respiratory: Denies: cough, short of breath, sputum production. GI: Reports: diarrhea, nausea, vomiting. Genitourinary: Denies: dysuria, frequency, hematuria, hesitation, nocturia. Skin: Denies: no symptoms. Exam & Diagnostic Data Last 24 Hrs of Vital Signs/I&O Vital Signs Date Time Temp Pulse Resp B/P B/P Pulse O2 O2 Flow FiO2 Mean Ox Delivery Rate 05/08 2315 66 124/60 05/08 2216 99.0 66 20 124/60 95 Room Air 05/08 1951 99.0 67 20 122/60 95 Room Air 05/08 1948 Room Air 05/08 1851 Room Air 05/08 1739 98.1 76 16 158/69 99 Room Air 05/08 1517 98.8 78 18 167/73 100 Room Air 05/08 1350 96 Room Air 05/08 1244 98.6 70 20 152/67 98 Room Air Intake & Output 05/09 0800 05/09 0000 05/08 1600 Intake Total Output Total 300 Balance -300 Number 1 Bowel Movements Output, Urine 300 Patient 140 lb 160 lb Weight Weight Bed scale Estimated Measurement Method Physical Exam General Appearance Alert, Cooperative, Oriented X2 Skin No Rashes, No Breakdown, No Significant Lesion HEENT Atraumatic, PERRLA, EOMI, Mucous Membr. moist/pink Neck Supple, No JVD Cardiovascular Normal S1, Normal S2, No Murmurs Lungs Clear to Auscultation Abdomen Normal Bowel Sounds, Soft, No Tenderness, PEG tune in place , skin around intact Neurological Normal Speech, Left hemiplegia Extremities No Clubbing, No Cyanosis, No Edema Last 24 Hrs of Labs/Klaus: Laboratory Tests 05/08/17 1330: Urine Opiates Screen < 100.00, Methadone Screen < 40, Barbiturate Screen < 60, Ur Phencyclidine Scrn < 6.00, Amphetamines Screen < 100, U Benzodiazepines Scrn < 85, Urine Cocaine Screen < 50, Urine Cannabis Screen < 5.00, Urine Color YEL, Urine Clarity CLEAR, Urine pH 6.0, Ur Specific [place] 1.025, Urine Protein NEG, Urine Ketones NEG, Urine Nitrite NEG, Urine Bilirubin NEG, Urine Urobilinogen 0.2, Ur Leukocyte Esterase NEG, Ur Microscopic EXAM NOT REQUIRED, Urine Hemoglobin NEG, Urine Glucose NEG 05/08/17 1315: Anion Gap 11, Estimated GFR 47 L, BUN/Creatinine Ratio 39.1 H, Glucose 94, Calcium 9.5, Total Bilirubin 0.6, AST 17, ALT 15, Alkaline Phosphatase 92, Troponin I 0.02, Total Protein 5.5 L, Albumin 3.0 L, Globulin 2.5, Albumin/ Globulin Ratio 1.2, CBC w Diff NO MAN DIFF REQ, RBC 3.39 L, MCV 91.3, MCH 30.4, MCHC 33.3, RDW 14.8 H, MPV 10.8 H, Gran % 82.9 H, Lymphocytes % 10.5 L, Monocytes % 6.2, Eosinophils % 0.1, Basophils % 0.3, Absolute Granulocytes 11.3 H, Absolute Lymphocytes 1.4, Absolute Monocytes 0.8 H, Absolute Eosinophils 0, Absolute Basophils 0, Serum Alcohol < 10.0 Microbiology 05/08 1455 NASOPHARYN: Influenza Virus A & B Rapid Smear - COMP Diagnostic Data EKG Results Normal sinus rhythm, heart rate 65, QTC [address]: Area of encephalomalacia involving the right frontoparietal region in the distribution of the right MCA. No interval change. Age-related cerebral atrophy. No acute intracranial process. Abdomen CT: The rectum remains distended with stool with presacral edema and inflammatory stranding suggesting stercoral colitis. The edema/stranding has slightly improved. No additional new or significant finding. Assessment/Plan Assessment: 86 yo F with PMH of A.fib, hypertension, hyperlipidemia, GERD, right CVA with left hemiplegia, DM, Anemia, renal artery stenosis, chronic back pain, constipation was brought in to the ED by ambulance. 911 was called by her family and the patient was found this morning unresponsive and her blood sugar was low .Patient was found to be severely hypoglycemic in the ED with blood sugar 25, the patient has previous admission to [facility] for the same complaints and after which she was discharged to or after discontinuing her home insulin. Her last echo was in July/2016 and showed Ejection Fraction of 85 (Hyperdynamic), Moderate Left Ventricular Hypertrophy, Left Atrial Enlargement, Mild Tricuspid Regurg #Hypoglycemia with history of diabetes mellitus Differential diagnosis includes insulinoma, however it might be due to insulin intake by mistake by her Aid or her with poor oral intake. Resolved Admitted to general medicine floor Vital every shift Gentle IV fluid hydration with D5 half-normal saline at a rate of 50 mL/h Accu-Chek Check insulin level, C-peptide level Endocrinology consult appreciated Hold antidiabetic medications for now #Leukocytosis Might be stress induced Close monitoring of BOW MAKER and vital signs #Chronic medical conditions including A. fib, hypertension, hyperlipidemia, CVA Continue home meds including Apixiban, carvedilol, gabapentin Hold losartan, hydralazine and check orthostatic blood pressure in the a.m. and continue if blood pressure allows Full code. DVT prophylaxis with Abixiban Consistent carbohydrate diet As Ranked By This Provider Problem List: 1. Hypoglycemia Core Measures/Misc (12/01) Acute Coronary Syndrome ACS Diagnosis: No Congestive Heart Failure Congestive Heart Failure Diagnosis No Cerebrovascular Accident CVA/TIA Diagnosis: No VTE (View Protocol) VTE Risk Factors Acute Medical Illness No Mechanical VTE Prophylaxis d/t N/A MechProphylax Ordered No VTE Pharm Prophylaxis d/t NA PharmProphylax ordered Sepsis (View protocol) Sepsis Present: No Tom Yao 05/09/17 0430: Resident Review Statement Resident Statement: examined this patient, discussed with architect internship, agreed with architect internship, discussed with family, reviewed EMR data (avail), discussed with nursing , discussed with case mgmt, reviewed images, amended to note Other Findings: This is 86 year-old Female with medical history of of A.fib on Eliquis, hypertension, hyperlipidemia, GERD, right CVA with left hemiplegia, DM not currently on treatment, Anemia, renal artery stenosis, chronic back pain. Patient presented to the emergency department via EMS with her with a chief complain off low blood sugar and unresponsiveness. We spoke with the and the daughter over the phone, her stated that around 7 AM her blood sugar was 94 that dropped to 64 around 8:30 and the patient become unresponsive but she was breathing around 10:30 the blood sugar was 40 and he called EMS. He stated for the past couple days after she came from the short- term rehabilitation where she spent one month after she was discharged from [facility] due to similar symptoms her oral intake was low with low appetite despite she used the G-tube and oral feeding the same time. He states she IS on the mechanical soft food with thin liquid. Her daughter stated that after the patient was discharged from [place] both sliding scale insulin and long-acting insulin that she was on discontinued and the patient currently not on any medication for her diabetes. Physical examination, lab and imaging as above. Problem list: -Hypoglycemia -RETA/Dehydration -Borderline blood pressure -Hypernatremia -Leukocytosis Plan: -Admit patient to general medicine floor -Vitals every shift -Accu-Chek every 4 hours -D5 half-normal saline at 50 mL per hour -Obtain insulin serum level, C-peptide -Endocrinology consultation in a.m. -We'll hold off hydralazine, losartan will check orthostatic restart in a.m. for blood pressure allow -Continue carvedilol, Eliquis -Nutrition consultation in a.m. -Recheck CBC and basic electrolyte in a.m. -Carbohydrate consistent diet -Pain pathway -DVT prophylaxis on Eliquis. -Full code Jasper ARORA, [facility] 05/09/17 0902: Attending MD Review Statement Attending Statement Attending MD Statement: examined this patient, discuss w/resident/PA/GARBAGE MAN, agreed w/resident/PA/GARBAGE MAN, reviewed images, amended to note Attending Assessment/Plan: 86 yo F with h/o paroxysmal aflutter on eliquis, HTN, ENEDINA, 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 s/p G-tube now able to tolerate PO, recurrent hypoglycemia, diabetes now off insulin, is brought in after an unresponsive episode noted to have accuchek of 25. Patient was recently at [facility] for similar symptoms and was discharged to [facility]. Patient has been off insulin since this last admission. Vitals stable. Examination as above. Labs: WBC 13.6, Na 147, BUN 43, creat 1.1 ( baseline 0.9), trop neg. UA Utox neg. Alcohol <10. CT abd/pelvis: stercoral colitis. Head CT: Area of encephalomalacia involving the right frontoparietal region in the distribution of the right MCA. No interval change. EKG: sinus rhythm, nonspecific T wave changes. Assessment and plan: 1. Recurrent hypoglycemia 2. Unresponsive episode 3. RETA 4. Hypernatremia 5. H/o CVA and paroxysmal Aflutter/Afib on eliquis - Admit to general medicine - Neurochecks Q4 - Accucheks Q4 - D5-1/2 NS - gentle hydration - Endo consult - check Insulin and C-peptide levels - Hold losartan, can resume once renal functions improve DVT ppx Eliquis. Full code.
--- NOTE | 2017-05-08 20:54 | Admission Certification ---
Admission Certification Certification Statement - As attending physician, I certify that at the time of - admission, based on clinical presentation, severity of - symptoms, need for further diagnostic testing and - therapeutic interventions, and risk of adverse outcomes - without in-hospital treatment, in my clinical assessment, - this patient requires an acute hospital stay for a minimum - of two nights or longer. I have also considered psychsocial - factors such as support system, advanced age, financial - issues, cognitive issues, and failed out-patient treatments, - past re-admission history, safety of patient, and lack of - compliance as applicable. Specific rationale supporting this admission is: Hypoglycemia, unresponsive episode.
[2017-05-08 22:16] VITALS: BP 124/60
--- NOTE | 2017-05-09 07:26 | PN- Housestaff ---
See Addendum Subjective Follow-up For: hypoglycemia altered mental status Subjective: pt is citizen of [place] speaking lethargic, residual left hemiplegia Review of Systems Constitutional: Reports: see HPI. Objective Last 24 Hrs of Vital Signs/I&O Vital Signs Date Time Temp Pulse Resp B/P B/P Pulse O2 O2 Flow FiO2 Mean Ox Delivery Rate 05/09 1132 58 152/54 05/09 0728 98.9 59 18 150/68 96 Room Air 05/08 2315 66 124/60 05/08 2216 99.0 66 20 124/60 95 Room Air 05/08 1951 99.0 67 20 122/60 95 Room Air 05/08 1948 Room Air 05/08 1851 Room Air 05/08 1739 98.1 76 16 158/69 99 Room Air 05/08 1517 98.8 78 18 167/73 100 Room Air 05/08 1350 96 Room Air 05/08 1244 98.6 70 20 152/67 98 Room Air Intake & Output 05/09 1600 05/09 0800 05/09 0000 Intake Total 470 Output Total Balance 470 Intake, IV 350 Intake, Oral 120 Number 1 Bowel Movements Patient 63.503 kg Weight Weight Bed scale Measurement Method Physical Exam General Appearance: Alert, Oriented X3, Cooperative, No Acute Distress Cardiovascular: Regular Rate, Normal S1, Normal S2, No Murmurs Lungs: Clear to Auscultation, Normal Air Movement Abdomen: Normal Bowel Sounds, Soft, No Tenderness, No Masses, +PEG Extremities: No Clubbing, No Cyanosis, No Edema, Normal Pulses Current Medications: Current Medications Sig/Renee Start time Last Medication Dose Route Stop Time Status Admin Acetaminophen 650 MG Q6P PRN 05/08 2114 AC PO Acetaminophen 1,000 MG Q6P PRN 05/08 2114 AC IV Apixaban 2.5 MG BID 05/08 2199 AC 05/09 PO 1132 Atorvastatin Calcium 80 MG 1700 05/09 170 AC PO Carvedilol 3.125 MG BID 05/08 2199 AC 05/09 PO 1132 Dextrose 25 GM ONCE ONE 05/08 1714 DC 05/08 IV 05/08 171 1713 Dextrose/Sodium 1,000 ML .Q20H 05/08 2114 AC 05/08 Chloride IV 2315 Gabapentin 200 MG BID 05/08 2199 DC 05/08 PO 2315 Losartan Potassium 25 MG DAILY 05/09 1207 AC PO Omeprazole 40 MG DAILY AC 05/09 0700 AC PO Sertraline HCl 25 MG DAILY 05/09 1207 AC PO Sodium Chloride 1,000 ML BOLUS ONE 05/08 1530 DC 05/08 IV 05/08 1729 1543 Last 24 Hrs of Lab/Klaus Results Last 24 Hrs of Labs/Mics: Laboratory Tests 05/09/17 0755: Glucose 108 H, Insulin Level 19.8, Cortisol AM Sample 14.5 05/09/17 0755: C-Peptide Pending 05/09/17 0655: Anion Gap 8, Estimated GFR 59 L, BUN/Creatinine Ratio 38.9 H, Prealbumin Pending, CBC w Diff NO MAN DIFF REQ, RBC 3.10 L, MCV 91.5, MCH 30.5, MCHC 33.4, RDW 14.8 H, MPV 11.7 H, Gran % 59.2, Lymphocytes % 29.9, Monocytes % 7.6, Eosinophils % 2.8, Basophils % 0.5, Absolute Granulocytes 5.8, Absolute Lymphocytes 2.9, Absolute Monocytes 0.7 H, Absolute Eosinophils 0.3, Absolute Basophils 0 05/08/17 1330: Urine Opiates Screen < 100.00, Methadone Screen < 40, Barbiturate Screen < 60, Ur Phencyclidine Scrn < 6.00, Amphetamines Screen < 100, U Benzodiazepines Scrn < 85, Urine Cocaine Screen < 50, Urine Cannabis Screen < 5.00, Urine Color YEL, Urine Clarity CLEAR, Urine pH 6.0, Ur Specific [place] 1.025, Urine Protein NEG, Urine Ketones NEG, Urine Nitrite NEG, Urine Bilirubin NEG, Urine Urobilinogen 0.2, Ur Leukocyte Esterase NEG, Ur Microscopic EXAM NOT REQUIRED, Urine Hemoglobin NEG, Urine Glucose NEG 05/08/17 1315: Anion Gap 11, Estimated GFR 47 L, BUN/Creatinine Ratio 39.1 H, Glucose 94, Calcium 9.5, Total Bilirubin 0.6, AST 17, ALT 15, Alkaline Phosphatase 92, Troponin I 0.02, Total Protein 5.5 L, Albumin 3.0 L, Globulin 2.5, Albumin/ Globulin Ratio 1.2, CBC w Diff NO MAN DIFF REQ, RBC 3.39 L, MCV 91.3, MCH 30.4, MCHC 33.3, RDW 14.8 H, MPV 10.8 H, Gran % 82.9 H, Lymphocytes % 10.5 L, Monocytes % 6.2, Eosinophils % 0.1, Basophils % 0.3, Absolute Granulocytes 11.3 H, Absolute Lymphocytes 1.4, Absolute Monocytes 0.8 H, Absolute Eosinophils 0, Absolute Basophils 0, Serum Alcohol < 10.0 Microbiology 05/08 1455 NASOPHARYN: Influenza Virus A & B Rapid Smear - COMP Assessment/Plan Assessment: 86 year old female with past medical history of atrial fibrillation, hypertension, hyperlipidemia, GERD, 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 Altered mental status with hypoglycemia: Secondary to severe hypoglycemia, 25 in the ED Previously treated at [facility] and insulin discontinued, no oral agents on discharge Follow up insulin and C peptide Follow up endocrinology consultation Continue D5-1/2NS @ 50cc/hr Encourage oral intake Accuchecks TIDAC/HS Atrial fibrillation: Continue carvedilol and eliquis Chronic pain: Hold gabapentin and WARRANTY MANAGER depressants HTN: Resume losartan at lower dose Monitor blood pressures h/o CVA: Continue high dose statin therapy Swallow evaluation pending, nutrition consult, check prealbumin DVT ppx-on eliquis Full code Problem List: 1. Dysphagia 2. Stercoral ulcer of rectum 3. Hypoglycemia 4. CVA (cerebral vascular accident) 5. Renal artery stenosis 6. Hypertension Pain Ratin Pain Location: n/a Pain Goal: Pain 4 or less Pain Plan: prn Tomorrow's Labs & Rationales: bep n/a Pain Goal: Pain 4 or less Pain Plan: prn
[2017-05-09 07:28] VITALS: BP 150/68
[2017-05-09 08:22] LABS: ABSOLUTE BASOPHIL COUNT 0 /CUMM (0.0-0.2); ABSOLUTE EOSINOPHIL COUNT 0.3 /CUMM (0.0-0.7); ABSOLUTE GRANULOCYTE CT 5.8 /CUMM (1.4-6.5); ABSOLUTE LYMPH COUNT 2.9 /CUMM (1.2-3.4); ABSOLUTE MONOCYTE COUNT 0.7 /CUMM (0.10-0.60); BASOPHIL % 0.5 % (0.0-2.0); EOSINOPHIL % 2.8 % (0-5); GRANULOCYTE % 59.2 % (42.2-75.2); HEMATOCRIT 28.4 % (37-47); MEAN CORPUSCULAR HGB 30.5 PG (27.0-31.0); MEAN CORPUSCULAR HGB CONC 33.4 G/DL (33.0-37.0); MEAN CORPUSCULAR VOLUME 91.5 FL (81.0-99.0); MEAN PLATELET VOLUME 11.7 FL (7.4-10.4); RBC DISTRIBUTION WIDTH 14.8 % (11.5-14.5); WHITE BLOOD CELL COUNT 9.8 /CUMM (4.8-10.8)
[2017-05-09 09:38] LABS: PLATELET COUNT 182 /CUMM (130-400)
--- NOTE | 2017-05-09 13:08 | Cons- Endocrinology ---
General Information and HPI Consulting Request Date of Consult: 05/09/17 Requested By: medical team Reason for Consult: evaluation of hypoglycemia. Source of Information: family, old records Exam Limitations: unable to give history History of Present Illness: 86 yo F with PMH of A.fib, hypertension, hyperlipidemia, GERD, right CVA with left hemiplegia, DM type 2, Anemia,chronic back pain, was brought in to the ED by ambulance after she was found to be unresponsive and her glucose level was low. She used to be on Levemir 8 units daily and Novolog coverage before meals which was discontinued several months ago as per her daughter. Patient shouldn't have taken any insulin or diabetes medication over the past several months. In ER, her glucose level was < 50 and she received D50w and then she was put on D51/2 NS at 50 ml/hour. Her FSGs were 157, 118, 109 and 120. Am lab showed glucose 108, insulin 19.8 and cortisol 14.5; c-peptide level is still pending. Allergies/Medications Allergies: Coded Allergies: NO KNOWN ALLERGIES (05/29/15) Home Med List: Apixaban (Eliquis) 2.5 MG TABLET 1 TAB PO BID BLOOD THINNR (Reported) Atorvastatin Calcium 80 MG TABLET 1 TAB PO 1700 HLD (Reported) Carvedilol 3.125 MG TABLET 1 TAB PO BID HEART (Reported) Ergocalciferol (Vitamin D2) (Vitamin D2) 50,000 UNIT CAPSULE 1 CAP PO QFRI SUPPLEMENT (Reported) Ferrous Sulfate (IRON) 325 MG (65 MG IRON) TABLET 1 TAB PO DAILY SUPPLEMENT ( Reported) Gabapentin 100 MG CAPSULE 2 CAP PO BID NEUROPATHIC PAIN (Reported) Hydralazine HCl 50 MG TABLET 1 TAB PO TID HEART (Reported) Lactobacillus Acidophilus (Probiotic) 10 BILLION CELL CAPSULE 1 CAP PO DAILY PROBIOTIC (Reported) Losartan Potassium 50 MG TABLET 1 TAB PO BID HEART/BP (Reported) Multivitamin (Multivitamins) 1 EACH CAPSULE 1 TAB PO DAILY SUPPLEMENT ( Reported) Pantoprazole Sodium 40 MG TABLET.DR 1 TAB PO DAILY GI (Reported) Sertraline HCl 25 MG TABLET 1 TAB PO DAILY MENTAL HEALTH (Reported) Vitamin B Complex (Super B-50 Complex) 1 EACH CAPSULE 1 CAP PO DAILY SUPPLEMENT (Reported) Review of Systems Review of Systems Constitutional: Reports: see HPI (unable to provide information.). Past History Travel History Traveled to [place] past 21 day No Medical History Blood Transfusion Hx: No Neurological: CVA, dementia EENT: cataracts, epistaxis Cardiovascular: AFIB, hypertension, hyperlipidemia, varicose veins Respiratory: pulmonary embolism (remote), pulmonary edema Gastrointestinal: constipation, ACID REFLUX Post PEG pandiverticulosis coli, L> R Hx colon adenoma Hepatic: NONE Renal: RIGHT RENAL ARTERY STENOSIS Musculoskeletal: chronic back pain, disk herniation, osteoarthritis, Back surgery osteopenia Psychiatric: depression (post CVA) Endocrine: obesity, vitamin D deficiency, DM Blood Disorders: anemia Cancer(s): NONE 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 MOTHER (MVA). , Age 30-40; Cause: MVA (motor vehicle accident). FATHER, , Age 30-40; Cause: MVA (motor vehicle accident). Psychosocial History Where Do You Live? Home Who Do You Live With? 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 no Power of Esol Teacher/HCP? no Functional Ability ADLs Needs Assist: dressing, eating, toileting, bathing. Ambulation: cane, walker IADLs Needs Assist: shopping, housework, finances, food prep, telephone, transportation, medication admin. Exam & Diagnostic Data Last 24 Hrs of Vital Signs/I&O Vital Signs Date Time Temp Pulse Resp B/P B/P Pulse O2 O2 Flow FiO2 Mean Ox Delivery Rate 05/09 1231 Room Air 05/09 1231 Room Air 05/09 1216 Room Air 05/09 1132 58 152/54 05/09 0728 98.9 59 18 150/68 96 Room Air 05/08 2315 66 124/60 05/08 2216 99.0 66 20 124/60 95 Room Air 05/08 1951 99.0 67 20 122/60 95 Room Air 05/08 1948 Room Air 05/08 1851 Room Air 05/08 1739 98.1 76 16 158/69 99 Room Air 05/08 1517 98.8 78 18 167/73 100 Room Air 05/08 1350 96 Room Air Intake & Output 05/09 1600 05/09 0800 05/09 0000 Intake Total 470 Output Total Balance 470 Intake, IV 350 Intake, Oral 120 Number 1 Bowel Movements Patient 140 lb Weight Weight Bed scale Measurement Method Physical Exam General Appearance: no apparent distress Neck: normal inspection Respiratory: decreased breath sounds Cardiovascular: irregularly irregular Gastrointestinal: soft Extremities: no edema Labs/Klaus Results: Laboratory Tests 05/09 05/09 05/09 2435 0755 0630 Chemistry Sodium (137 - 145 mmol/L) 142 Potassium (3.5 - 5.1 mmol/L) 3.8 Chloride (98 - 107 mmol/L) 114 H Carbon Dioxide (22 - 30 mmol/L) 20 L Anion Gap (5 - 16) 8 BUN (7 - 17 mg/dL) 35 H Creatinine (0.5 - 1.0 mg/dL) 0.9 Estimated GFR (>60 ml/min) 59 L BUN/Creatinine Ratio (7 - 25 %) 38.9 H Glucose (65 - 99 mg/dL) 108 H Insulin Level (3.0 - 25.0 mIU/mL) 19.8 C-Peptide Pending Prealbumin (17.6 - 36.0 mg/dL) 15.8 L Cortisol AM Sample (4.46 - 22.7 ug/dL) 14.5 Hematology CBC w Diff NO MAN DIFF REQ WBC (4.8 - 10.8 /CUMM) 9.8 RBC (4.20 - 5.40 /CUMM) 3.10 L Hgb (12.0 - 16.0 G/DL) 9.5 L Hct (37 - 47 %) 28.4 L MCV (81.0 - 99.0 FL) 91.5 MCH (27.0 - 31.0 PG) 30.5 MCHC (33.0 - 37.0 G/DL) 33.4 RDW (11.5 - 14.5 %) 14.8 H Plt Count (130 - 400 /CUMM) 182 MPV (7.4 - 10.4 FL) 11.7 H Gran % (42.2 - 75.2 %) 59.2 Lymphocytes % (20.5 - 51.1 %) 29.9 Monocytes % (1.7 - 9.3 %) 7.6 Eosinophils % (0 - 5 %) 2.8 Basophils % (0.0 - 2.0 %) 0.5 Absolute Granulocytes (1.4 - 6.5 /CUMM) 5.8 Absolute Lymphocytes (1.2 - 3.4 /CUMM) 2.9 Absolute Monocytes (0.10 - 0.60 /CUMM) 0.7 H Absolute Eosinophils (0.0 - 0.7 /CUMM) 0.3 Absolute Basophils (0.0 - 0.2 /CUMM) 0 05/08 05/08 1330 1315 Chemistry Sodium (137 - 145 mmol/L) 147 H Potassium (3.5 - 5.1 mmol/L) 3.7 Chloride (98 - 107 mmol/L) 113 H Carbon Dioxide (22 - 30 mmol/L) 23 Anion Gap (5 - 16) 11 BUN (7 - 17 mg/dL) 43 H Creatinine (0.5 - 1.0 mg/dL) 1.1 H Estimated GFR (>60 ml/min) 47 L BUN/Creatinine Ratio (7 - 25 %) 39.1 H Glucose (65 - 99 mg/dL) 94 Calcium (8.4 - 10.2 mg/dL) 9.5 Total Bilirubin (0.2 - 1.3 mg/dL) 0.6 AST (14 - 36 U/L) 17 ALT (9 - 52 U/L) 15 Alkaline Phosphatase (<127 U/L) 92 Troponin I (< 0.11 ng/ml) 0.02 Total Protein (6.3 - 8.2 g/dL) 5.5 L Albumin (3.5 - 5.0 g/dL) 3.0 L Globulin (1.9 - 4.2 gm/dL) 2.5 Albumin/Globulin Ratio (1.1 - 2.2 %) 1.2 Hematology CBC w Diff NO MAN DIFF REQ WBC (4.8 - 10.8 /CUMM) 13.6 H RBC (4.20 - 5.40 /CUMM) 3.39 L Hgb (12.0 - 16.0 G/DL) 10.3 L Hct (37 - 47 %) 31.0 L MCV (81.0 - 99.0 FL) 91.3 MCH (27.0 - 31.0 PG) 30.4 MCHC (33.0 - 37.0 G/DL) 33.3 RDW (11.5 - 14.5 %) 14.8 H Plt Count (130 - 400 /CUMM) 203 MPV (7.4 - 10.4 FL) 10.8 H Gran % (42.2 - 75.2 %) 82.9 H Lymphocytes % (20.5 - 51.1 %) 10.5 L Monocytes % (1.7 - 9.3 %) 6.2 Eosinophils % (0 - 5 %) 0.1 Basophils % (0.0 - 2.0 %) 0.3 Absolute Granulocytes (1.4 - 6.5 /CUMM) 11.3 H Absolute Lymphocytes (1.2 - 3.4 /CUMM) 1.4 Absolute Monocytes (0.10 - 0.60 /CUMM) 0.8 H Absolute Eosinophils (0.0 - 0.7 /CUMM) 0 Absolute Basophils (0.0 - 0.2 /CUMM) 0 Toxicology Urine Opiates Screen (>2000 NG/ML) < 100.00 Methadone Screen (>300 NG/ML) < 40 Barbiturate Screen (>200 NG/ML) < 60 Ur Phencyclidine Scrn (>25 NG/ML) < 6.00 Amphetamines Screen (>1000 NG/ML) < 100 U Benzodiazepines Scrn (>200 NG/ML) < 85 Urine Cocaine Screen (>300 NG/ML) < 50 Urine Cannabis Screen (>50 NG/ML) < 5.00 Serum Alcohol (<10 MG/DL) < 10.0 Urines Urine Color (YEL,AMB,STR) YEL Urine Clarity (CLEAR) CLEAR Urine pH (5.0 - 8.0) 6.0 Ur Specific [place] (1.001 - 1.035) 1.025 Urine Protein (NEG,<30 MG/DL) NEG Urine Ketones (NEG) NEG Urine Nitrite (NEG) NEG Urine Bilirubin (NEG) NEG Urine Urobilinogen (0.1 - 1.0 EU/dl) 0.2 Ur Leukocyte Esterase (NEG) NEG Ur Microscopic EXAM NOT REQUIRED Urine Hemoglobin (NEG) NEG Urine Glucose (N MG/DL) NEG Assessment/Plan Assessment/Plan 86 yo F with PMH of A.fib, hypertension, hyperlipidemia, GERD, right CVA with left hemiplegia, DM type 2, Anemia,chronic back pain, was brought in to the ED by ambulance after she was found to be unresponsive and her glucose level was low. She used to be on Levemir 8 units daily and Novolog coverage before meals which was discontinued several months ago as per her daughter. Patient shouldn't have taken any insulin or diabetes medication over the past several months. This morning, her glucose level was 108 and her insulin level was 19.8. Hypoglycemia-- etiology unclear: 1. add insulin level to the blood sample collected to ER 2. repeat glucose and insulin level tomorrow morning to look for a trend. 3. continue the current IVF; 4. monitor FSGs every 4 hours; will follow. Consult Acknowledgment - Thank you for your consult request.
[2017-05-09 14:02] VITALS: BP 124/60
--- NOTE | 2017-05-09 16:03 | Discharge Summary ---
Visit Information Visit Dates Admission Date: 05/08/17 Discharge Date: 05/13/17 Hospital Course Course Attending Physician: Blanka Horton MD Primary Care Physician: Unknown Hospital Course: 86 year old female with past medical history of atrial fibrillation, hypertension, hyperlipidemia, GERD, old right CVA with residual left hemiplegia, diabetes wasn't insulin but stopped months ago, renal artery stenosis, and chronic pain was brought in by ambulance for hypoglycemia and altered mental status. In ER, her glucose level was < 50 and she received D50w and then she was put on D51/2 NS at 50 ml/hour after which her blood glucose improved. On admission her insulin level was 19, C-peptide 0.49 and cortisol was 14.5. #Altered mental status with hypoglycemia: Given the elevated insulin and low C-peptide level, the patient hypoglycemia most likely secondary to exogenous insulin. Post admission her insulin trended down without intervention. The patient altered mental status improved with improvement in the blood glucose level. The patient was instructed to discard all antihyperglycemic medication. #Feeding and nutrition Swallow evaluation was done and the patient was started on puree/honey thick diet. She has PEG tube that was used only for medications. It is recommended to continue with puree/honey until repeated swallow evaluation, however, after extensive discussion with the daughter about the risks of aspiration and potential infection and worsening condition, even potential , the daughter is requesting thin liquids for the patient. She showed full understanding of the potential risks. #For chronic stable conditions including A. fib, Chronic pain, HTN, h/o CVA We continued * Carvedilol * Eliquis * Gabapentin * Zoloft * High dose statin * Losartan but dose Increased from 25 to 50mg daily Allergies: Coded Allergies: NO KNOWN ALLERGIES (05/29/15) Disposition Summary Disposition Principal Diagnosis: hypoglycemia most likely secondary to exogenous insulin Additional Diagnosis: A.fib Discharge Disposition: SNF Discharge Instructions General Discharge Information Code Status: Full Code Patient's Diet: puree/honey thick diet Patient's Activity: as tolerated Follow-Up Instructions/Appts: Please follow up with your primary care physician within 1 week of discharge. Follow-up with Dr. Valenzuela within 1 week of discharge. Do not take any insulin products upon discharge. Medications at Discharge Discharge Medications: Stop taking the following medications: Gabapentin (Gabapentin) 100 MG CAPSULE ORAL TWICE DAILY Qty = 60 Continue taking these medications: Losartan Potassium (Losartan Potassium) 50 MG TABLET 1 Tablet ORAL TWICE DAILY Qty = 60 Comments: Last Taken: 02/09/17 Time: 1150 Atorvastatin Calcium (Atorvastatin Calcium) 80 MG TABLET 1 Tablet ORAL 5 PM Qty = 30 Comments: Last Taken: 02/08/17 Time: 600 PM Ferrous Sulfate (IRON) 325 MG (65 MG IRON) TABLET 1 Tablet ORAL DAILY Comments: Last Taken: 02/09/17 Time: 1150 Pantoprazole Sodium (Pantoprazole Sodium) 40 MG TABLET.DR 1 Tablet ORAL DAILY Qty = 60 Comments: NOT GIVEN IN HOSPITAL OMEPRAZOLE GIVEN 02/09 @ 700 AM Sertraline HCl (Sertraline HCl) 25 MG TABLET 1 Tablet ORAL DAILY Qty = 30 Comments: Last Taken: 02/09/17 Time: 1150 Multivitamin (Multivitamins) 1 EACH CAPSULE 1 Tablet ORAL DAILY Comments: Last Taken: 02/09/17 Time: 1150 Ergocalciferol (Vitamin D2) (Vitamin D2) 50,000 UNIT CAPSULE 1 Capsule ORAL EVERY FRIDAY Qty = 12 Comments: NOT GIVEN IN HOSPITAL Apixaban (Eliquis) 2.5 MG TABLET 1 Tablet ORAL TWICE DAILY Comments: Last Taken: 02/09/17 Time: 1150 Vitamin B Complex (Super B-50 Complex) 1 EACH CAPSULE 1 Capsule ORAL DAILY Comments: NOT GIVEN IN HOSPITAL Lactobacillus Acidophilus (Probiotic) 10 BILLION CELL CAPSULE 1 Capsule ORAL DAILY Comments: Last Taken: 02/09/17 Time: 1150 Hydralazine HCl (Hydralazine HCl) 50 MG TABLET 1 Tablet ORAL THREE TIMES DAILY Comments: Last Taken: 02/09/17 Time: 1150 Carvedilol (Carvedilol) 3.125 MG TABLET 1 Tablet ORAL TWICE DAILY Qty = 160 Copies To: Nicolas ARORA,Mary
[2017-05-09 22:53] VITALS: BP 170/80
[2017-05-10 01:24] VITALS: BP 138/80
[2017-05-10 07:29] VITALS: BP 130/80
--- NOTE | 2017-05-10 11:09 | PN- Housestaff ---
See Addendum Subjective Follow-up For: Hypoglycemia Subjective: No overtnight events. She is not speaking micronesian this morning, sleepy. No complaints. Review of Systems Constitutional: Reports: see HPI. EENTM: Reports: no symptoms. Cardiovascular: Reports: no symptoms. Respiratory: Reports: no symptoms. Gastrointestinal: Reports: no symptoms. Genitourinary: Reports: no symptoms. Musculoskeletal: Reports: no symptoms. Skin: Reports: no symptoms. Neurological/Psychological: Reports: no symptoms. Hematologic/Endocrine: Reports: no symptoms. Immunologic/Allergic: Reports: no symptoms. Objective Last 24 Hrs of Vital Signs/I&O Vital Signs Date Time Temp Pulse Resp B/P B/P Pulse O2 O2 Flow FiO2 Mean Ox Delivery Rate 05/10 0729 98.1 62 18 130/80 97 Room Air 05/10 0124 67 20 138/80 98 Room Air 05/09 2253 98.1 52 20 170/80 98 Room Air 05/09 1402 98.5 64 15 124/60 98 Room Air 05/09 1354 64 124/60 05/09 1231 Room Air 05/09 1231 Room Air 05/09 1216 Room Air 05/09 1132 58 152/54 Intake & Output 05/10 1600 05/10 0800 05/10 0000 Intake Total 400 270 Output Total Balance 400 270 Intake, IV 400 150 Intake, Oral 120 Patient 63.503 kg Weight Physical Exam General Appearance: Cooperative, No Acute Distress Cardiovascular: Regular Rate, Normal S1, Normal S2 Lungs: Clear to Auscultation Abdomen: No Tenderness, No Hepatospenomegaly, No Masses, PEG tube Extremities: No Edema, Normal Pulses, No Tenderness/Swelling Current Medications: Current Medications Sig/Renee Start time Last Medication Dose Route Stop Time Status Admin Acetaminophen 650 MG Q6P PRN 05/08 2114 AC PO Acetaminophen 1,000 MG Q6P PRN 05/08 2114 AC IV Apixaban 2.5 MG BID 05/08 2199 AC 05/09 PO 213 Atorvastatin Calcium 80 MG 1700 05/09 170 AC PO Carvedilol 3.125 MG BID 05/08 2199 AC 05/09 PO 213 Dextrose/Sodium 1,000 ML .Q20H 05/08 2114 AC 05/09 Chloride IV 2138 Gabapentin 200 MG BID 05/08 2199 DC 02/22 PO 2315 Losartan Potassium 25 MG DAILY 05/09 1207 AC 05/09 PO 1354 Omeprazole 40 MG DAILY AC 05/09 0700 AC PO Potassium Chloride 40 MEQ ONCE ONE 05/10 1045 DC PO 05/10 1046 Quetiapine Fumarate 25 MG ONCE ONE 05/10 0115 DC 05/10 PO 05/10 0116 0133 Sertraline HCl 25 MG DAILY 05/09 1207 AC 05/09 PO 1348 Last 24 Hrs of Lab/Klaus Results Last 24 Hrs of Labs/Mics: Laboratory Tests 05/10/17 0716: Anion Gap 6, Estimated GFR > 60, BUN/Creatinine Ratio 33.8 H, Glucose 138 H, Insulin Level Pending Assessment/Plan Assessment: 86 year old female with past medical history of atrial fibrillation, hypertension, hyperlipidemia, GERD, 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 Altered mental status with hypoglycemia: Still sleepy, glucose more normal. Secondary to severe hypoglycemia, 25 in the ED Previously treated at [facility] and insulin discontinued, no oral agents on discharge Follow up insulin and C peptide Follow up endocrinology consultation Continue D5-1/2NS @ 50cc/hr Encourage oral intake Accuchecks TIDAC/HS K low, replete. 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 Hypoglycemia Pain Ratin Pain Location: no Pain Goal: Remain pain free Pain Plan: no Tomorrow's Labs & Rationales: no
--- NOTE | 2017-05-10 14:04 | PN- Endocrinology ---
Assessment/Plan Endoscopy Assessment: 86 yo F with PMH of Magi.fib, hypertension, hyperlipidemia, GERD, right CVA with left hemiplegia, DM type 2, Anemia,chronic back pain, was brought in to the ED by ambulance after she was found to be unresponsive and her glucose level was low. She used to be on Levemir 8 units daily and Novolog coverage before meals which was discontinued several months ago as per her daughter. Patient shouldn't have taken any insulin or diabetes medication over the past several months. In ER, her glucose level was < 50 and she received D50w and then she was put on D51/2 NS at 50 ml/hour. Since then, her glucose level has been stable-- 120, 145, 181, 160 and 145. On 05/08/2017, her glucose level 94, insulin level 93.9. On 05/09/2017, her glucose 108, insulin 19.8 and cortisol 14.5; c-peptide level is still pending. On 05/10/2017, her glucose level 138 and insulin level 6.2 At this point, the above work up demnstrated that patient 's hypoglycemia on admission most likely is due to exogeneous insulin. However, we will follow c- peptide level just to be sure. By tomorrow morning,, most likely we can discontinue D5 1/2 NS. Plan: detail see the above. Subjective Subjective: She is sleepy. Objective Last 24 Hrs of Vital Signs/I&O Vital Signs Date Time Temp Pulse Resp B/P B/P Pulse O2 O2 Flow FiO2 Mean Ox Delivery Rate 05/10 1250 46 130/66 05/10 1248 63 130/66 05/10 0729 98.1 62 18 130/80 97 Room Air 05/10 0124 67 20 138/80 98 Room Air 05/09 2253 98.1 52 20 170/80 98 Room Air 05/09 1402 98.5 64 15 124/60 98 Room Air Intake & Output 05/10 1600 05/10 0800 05/10 0000 Intake Total 400 270 Output Total Balance 400 270 Intake, IV 400 150 Intake, Oral 120 Patient 140 lb Weight Results Pertinent Lab/Klaus Results: Laboratory Tests 05/10 05/09 05/09 0716 0755 0755 Chemistry Sodium (137 - 145 mmol/L) 140 Potassium (3.5 - 5.1 mmol/L) 3.2 L Chloride (98 - 107 mmol/L) 112 H Carbon Dioxide (22 - 30 mmol/L) 22 Anion Gap (5 - 16) 6 BUN (7 - 17 mg/dL) 27 H Creatinine (0.5 - 1.0 mg/dL) 0.8 Estimated GFR (>60 ml/min) > 60 BUN/Creatinine Ratio (7 - 25 %) 33.8 H Glucose (65 - 99 mg/dL) 138 H 108 H Insulin Level (3.0 - 25.0 mIU/mL) 6.2 19.8 C-Peptide Pending Cortisol AM Sample (4.46 - 22.7 ug/dL) 14.5 0205/08 0655 1330 Chemistry Sodium (137 - 145 mmol/L) 142 Potassium (3.5 - 5.1 mmol/L) 3.8 Chloride (98 - 107 mmol/L) 114 H Carbon Dioxide (22 - 30 mmol/L) 20 L Anion Gap (5 - 16) 8 BUN (7 - 17 mg/dL) 35 H Creatinine (0.5 - 1.0 mg/dL) 0.9 Estimated GFR (>60 ml/min) 59 L BUN/Creatinine Ratio (7 - 25 %) 38.9 H Prealbumin (17.6 - 36.0 mg/dL) 15.8 L Hematology CBC w Diff NO MAN DIFF REQ WBC (4.8 - 10.8 /CUMM) 9.8 RBC (4.20 - 5.40 /CUMM) 3.10 L Hgb (12.0 - 16.0 G/DL) 9.5 L Hct (37 - 47 %) 28.4 L MCV (81.0 - 99.0 FL) 91.5 MCH (27.0 - 31.0 PG) 30.5 MCHC (33.0 - 37.0 G/DL) 33.4 RDW (11.5 - 14.5 %) 14.8 H Plt Count (130 - 400 /CUMM) 182 MPV (7.4 - 10.4 FL) 11.7 H Gran % (42.2 - 75.2 %) 59.2 Lymphocytes % (20.5 - 51.1 %) 29.9 Monocytes % (1.7 - 9.3 %) 7.6 Eosinophils % (0 - 5 %) 2.8 Basophils % (0.0 - 2.0 %) 0.5 Absolute Granulocytes (1.4 - 6.5 /CUMM) 5.8 Absolute Lymphocytes (1.2 - 3.4 /CUMM) 2.9 Absolute Monocytes (0.10 - 0.60 /CUMM) 0.7 H Absolute Eosinophils (0.0 - 0.7 /CUMM) 0.3 Absolute Basophils (0.0 - 0.2 /CUMM) 0 Toxicology Urine Opiates Screen (>2000 NG/ML) < 100.00 Methadone Screen (>300 NG/ML) < 40 Barbiturate Screen (>200 NG/ML) < 60 Ur Phencyclidine Scrn (>25 NG/ML) < 6.00 Amphetamines Screen (>1000 NG/ML) < 100 U Benzodiazepines Scrn (>200 NG/ML) < 85 Urine Cocaine Screen (>300 NG/ML) < 50 Urine Cannabis Screen (>50 NG/ML) < 5.00 Urines Urine Color (YEL,AMB,STR) YEL Urine Clarity (CLEAR) CLEAR Urine pH (5.0 - 8.0) 6.0 Ur Specific [place] (1.001 - 1.035) 1.025 Urine Protein (NEG,<30 MG/DL) NEG Urine Ketones (NEG) NEG Urine Nitrite (NEG) NEG Urine Bilirubin (NEG) NEG Urine Urobilinogen (0.1 - 1.0 EU/dl) 0.2 Ur Leukocyte Esterase (NEG) NEG Ur Microscopic EXAM NOT REQUIRED Urine Hemoglobin (NEG) NEG Urine Glucose (N MG/DL) NEG 05/08 1315 Chemistry Sodium (137 - 145 mmol/L) 147 H Potassium (3.5 - 5.1 mmol/L) 3.7 Chloride (98 - 107 mmol/L) 113 H Carbon Dioxide (22 - 30 mmol/L) 23 Anion Gap (5 - 16) 11 BUN (7 - 17 mg/dL) 43 H Creatinine (0.5 - 1.0 mg/dL) 1.1 H Estimated GFR (>60 ml/min) 47 L BUN/Creatinine Ratio (7 - 25 %) 39.1 H Glucose (65 - 99 mg/dL) 94 Insulin Level (3.0 - 25.0 mIU/mL) 93.9 H Calcium (8.4 - 10.2 mg/dL) 9.5 Total Bilirubin (0.2 - 1.3 mg/dL) 0.6 AST (14 - 36 U/L) 17 ALT (9 - 52 U/L) 15 Alkaline Phosphatase (<127 U/L) 92 Troponin I (< 0.11 ng/ml) 0.02 Total Protein (6.3 - 8.2 g/dL) 5.5 L Albumin (3.5 - 5.0 g/dL) 3.0 L Globulin (1.9 - 4.2 gm/dL) 2.5 Albumin/Globulin Ratio (1.1 - 2.2 %) 1.2 Hematology CBC w Diff NO MAN DIFF REQ WBC (4.8 - 10.8 /CUMM) 13.6 H RBC (4.20 - 5.40 /CUMM) 3.39 L Hgb (12.0 - 16.0 G/DL) 10.3 L Hct (37 - 47 %) 31.0 L MCV (81.0 - 99.0 FL) 91.3 MCH (27.0 - 31.0 PG) 30.4 MCHC (33.0 - 37.0 G/DL) 33.3 RDW (11.5 - 14.5 %) 14.8 H Plt Count (130 - 400 /CUMM) 203 MPV (7.4 - 10.4 FL) 10.8 H Gran % (42.2 - 75.2 %) 82.9 H Lymphocytes % (20.5 - 51.1 %) 10.5 L Monocytes % (1.7 - 9.3 %) 6.2 Eosinophils % (0 - 5 %) 0.1 Basophils % (0.0 - 2.0 %) 0.3 Absolute Granulocytes (1.4 - 6.5 /CUMM) 11.3 H Absolute Lymphocytes (1.2 - 3.4 /CUMM) 1.4 Absolute Monocytes (0.10 - 0.60 /CUMM) 0.8 H Absolute Eosinophils (0.0 - 0.7 /CUMM) 0 Absolute Basophils (0.0 - 0.2 /CUMM) 0 Toxicology Serum Alcohol (<10 MG/DL) < 10.0
[2017-05-10 14:50] VITALS: BP 132/78
[2017-05-10 21:44] VITALS: BP 128/82
[2017-05-11 07:01] VITALS: BP 146/78
--- NOTE | 2017-05-11 14:42 | PN- Endocrinology ---
Assessment/Plan Endoscopy Assessment: 86 yo F with PMH of Magi.fib, hypertension, hyperlipidemia, GERD, right CVA with left hemiplegia, DM type 2, Anemia,chronic back pain, was brought in to the ED by ambulance after she was found to be unresponsive and her glucose level was low. She used to be on Levemir 8 units daily and Novolog coverage before meals which was discontinued several months ago as per her daughter. Patient shouldn't have taken any insulin or diabetes medication over the past several months. In ER, her glucose level was < 50 and she received D50w and then she was put on D51/2 NS at 50 ml/hour. Since then, her glucose level has been stable On 05/08/2017, her glucose level 94, insulin level 93.9. On 05/09/2017, her glucose 108, insulin 19.8 and cortisol 14.5; c-peptide level is still pending. On 05/10/2017, her glucose level 138 and insulin level 6.2 At this point, the above work up demnstrated that patient 's hypoglycemia on admission most likely is due to exogeneous insulin. However, we will follow c- peptide level just to be sure. As her po intake has been poor, she is still on D5 1/2 NS. The above findings have been touched base with Dr. Domingo and patient's daughter. Plan: detail see the above note. Subjective Subjective: She is still sleepy. Objective Last 24 Hrs of Vital Signs/I&O Vital Signs Date Time Temp Pulse Resp B/P B/P Pulse O2 O2 Flow FiO2 Mean Ox Delivery Rate 05/11 1112 55 142/78 05/11 1112 55 142/78 05/11 0701 98.2 57 18 146/78 100 Room Air 05/10 2144 97.9 67 18 128/82 98 05/10 2139 67 128/82 05/10 1450 98.9 54 18 132/78 97 Room Air Intake & Output 05/11 1600 05/11 0800 05/11 0000 Intake Total 400 270 Output Total Balance 400 270 Intake, IV 400 150 Intake, Oral 120 Results Pertinent Lab/Klaus Results: Laboratory Tests 05/11 0652 Chemistry Sodium (137 - 145 mmol/L) 140 Potassium (3.5 - 5.1 mmol/L) 3.6 Chloride (98 - 107 mmol/L) 113 H Carbon Dioxide (22 - 30 mmol/L) 20 L Anion Gap (5 - 16) 7 BUN (7 - 17 mg/dL) 21 H Creatinine (0.5 - 1.0 mg/dL) 0.8 Estimated GFR (>60 ml/min) > 60 BUN/Creatinine Ratio (7 - 25 %) 26.3 H
[2017-05-11 15:27] VITALS: BP 164/66
--- NOTE | 2017-05-11 16:37 | PN- Gen Med ---
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 Altered mental status with hypoglycemia: this is her second episode of severe hypoglycemia. Pt was supposed to be off her insulin but her insulin level at time of admission was high and has trended down indicating that there is a possibility that pt was still getting insulin at home . d/w pts daughter Nhi over the phone and d/w Dr Valenzuela. Pt is eating better this morning and if cont to eat good will dc her D5W iv fluids. f/u on c peptide levels which are still pending. No more hypoglycemic episodes. Problem List: 1. Hypoglycemia Subjective Review of Systems Constitutional: Denies: chills, fever. Respiratory: Denies: cough, short of breath. Gastrointestinal: Denies: abdominal pain. Genitourinary: Denies: dysuria. Objective Last 24 Hrs of Vital Signs/I&O Vital Signs Date Time Temp Pulse Resp B/P B/P Pulse O2 O2 Flow FiO2 Mean Ox Delivery Rate 05/11 1527 98.1 60 20 164/66 96 Room Air 05/11 1112 55 142/78 05/11 1112 55 142/78 05/11 0701 98.2 57 18 146/78 100 Room Air 05/10 2144 97.9 67 18 128/82 98 05/10 2139 67 128/82 Intake & Output 05/11 1600 05/11 0800 05/11 0000 Intake Total 400 270 Output Total Balance 400 270 Intake, IV 400 150 Intake, Oral 120 Physical Exam General Appearance: Alert, when woken up by stimulus and answering questions appropriately Skin: No Rashes HEENT: EOMI Cardiovascular: Regular Rate Lungs: Clear to Auscultation Abdomen: Soft, No Tenderness Extremities: No Cyanosis Current Medications: Current Medications Sig/Renee Start time Last Medication Dose Route Stop Time Status Admin Acetaminophen 650 MG Q6P PRN 05/08 2114 AC PO Acetaminophen 1,000 MG Q6P PRN 05/08 2114 AC IV Apixaban 2.5 MG BID 05/08 2199 AC 05/11 PO 1112 Atorvastatin Calcium 80 MG 1700 05/09 1700 AC 05/10 PO 1828 Carvedilol 3.125 MG BID 05/08 2199 AC 05/10 PO 2139 Dextrose/Sodium 1,000 ML .Q20H 05/08 2114 AC 05/11 Chloride IV 1110 Losartan Potassium 25 MG DAILY 05/09 1207 AC 05/11 PO 111 Omeprazole 40 MG DAILY AC 05/09 0700 AC PO Polyethylene Glycol 17 GM DAILY 05/11 1154 AC PO Quetiapine Fumarate 25 MG ONCE PRN 05/10 2199 DC 05/10 PO 2208 Sertraline HCl 25 MG DAILY 05/09 1207 AC 05/11 PO 1112 Last 24 Hrs of Labs/Mics: Laboratory Tests 05/11/17 0652: Anion Gap 7, Estimated GFR > 60, BUN/Creatinine Ratio 26.3 H
[2017-05-11 22:35] VITALS: BP 152/80
[2017-05-12 07:12] VITALS: BP 142/78
--- NOTE | 2017-05-12 07:34 | PN- Housestaff ---
See Addendum Subjective Follow-up For: hypoglycemia Subjective: patient continues to have poor po intake, currently on puree/honey diet was agitated over the wknd and receiveed several one time doses of seroquel no further episodes of hypoglycemia, remains on d5-1/2ns Review of Systems Constitutional: Reports: see HPI. Objective Last 24 Hrs of Vital Signs/I&O Vital Signs Date Time Temp Pulse Resp B/P B/P Pulse O2 O2 Flow FiO2 Mean Ox Delivery Rate 05/12 0712 98.2 55 19 142/78 97 05/11 2342 67 152/80 05/11 2235 98.3 59 20 152/80 93 Room Air 05/11 1527 98.1 60 20 164/66 96 Room Air 05/11 1112 55 142/78 05/11 1112 55 14278 Intake & Output 05/12 1600 05/12 0800 05/12 0000 Intake Total 500 0 Output Total Balance 500 0 Intake, IV 500 Intake, Oral 0 0 Number 0 0 Bowel Movements Physical Exam General Appearance: Alert, Cooperative, No Acute Distress Cardiovascular: Regular Rate, Normal S1, Normal S2, No Murmurs Lungs: Clear to Auscultation, Normal Air Movement Abdomen: Normal Bowel Sounds, Soft, No Tenderness, No Masses, + PEG Extremities: No Clubbing, No Cyanosis, No Edema, Normal Pulses Current Medications: Current Medications Sig/Renee Start time Last Medication Dose Route Stop Time Status Admin Acetaminophen 650 MG .STK-MED ONE 05/11 2344 DC PO 05/11 234 Acetaminophen 650 MG Q6P PRN 05/08 2114 AC 05/11 PO 2349 Acetaminophen 1,000 MG Q6P PRN 05/08 2114 AC IV Apixaban 2.5 MG BID 05/08 2199 AC 05/11 PO 2342 Atorvastatin Calcium 80 MG 1700 05/09 1700 AC 05/11 PO 1755 Carvedilol 3.125 MG BID 05/08 2199 AC 05/11 PO 2342 Dextrose/Sodium 1,000 ML .Q20H 05/08 2114 AC 05/11 Chloride IV 1110 Gabapentin 100 MG BID 05/12 1000 UNVr PO Losartan Potassium 50 MG DAILY 05/12 1000 UNVr PO Losartan Potassium 25 MG DAILY 05/09 1207 DC 05/11 PO 1112 Omeprazole 40 MG DAILY AC 05/09 0700 AC PO Polyethylene Glycol 17 GM DAILY 05/11 1154 AC PO Potassium Chloride 20 MEQ ONCE ONE 05/12 0745 DC PO 05/12 0746 Quetiapine Fumarate 25 MG ONCE PRN 05/11 2330 DC 05/11 PO 05/12 0700 2342 Quetiapine Fumarate 25 MG ONCE ONE 05/11 1730 DC 05/11 PO 05/11 1731 1744 Sertraline HCl 25 MG DAILY 05/09 1207 AC 05/11 PO 1112 Last 24 Hrs of Lab/Klaus Results Last 24 Hrs of Labs/Mics: Laboratory Tests 05/12/17 0800: Sodium Pending, Potassium Pending, Chloride Pending, Carbon Dioxide Pending, Anion Gap Pending, BUN Pending, Creatinine Pending, BUN/Creatinine Ratio Pending , CBC w Diff Pending, WBC Pending, RBC Pending, Hgb Pending, Hct Pending, MCV Pending, MCH Pending, MCHC Pending, RDW Pending, Plt Count Pending, MPV Pending Assessment/Plan Assessment: 86 year old female with past medical history of atrial fibrillation, hypertension, hyperlipidemia, GERD, 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 Altered mental status with hypoglycemia: Secondary to severe hypoglycemia, 25 in the ED Previously treated at [facility] and insulin discontinued, no oral agents on discharge Suspected exogenous insulin, insulin levels high on arrival, awaiting C peptide Follow up endocrinology consultation, appreciate recommendations Patient remains on D5-1/2NS @ 50cc/hr, PO intake remains poor Accuchecks Q4H, blood sugars 115-185 last 24 hours Swallow evaluation, patient is on puree/honey thick diet currently Replete electrolytes prn Atrial fibrillation: Continue carvedilol and eliquis Chronic pain: Resumed gabapentin 100mg PO BID, 200 at home and zoloft 25mg PO daily HTN: Increased losartan from 25 to 50mg daily Monitor blood pressures h/o CVA: Continue high dose statin therapy Diabetic diet-puree/honey DVT ppx-on eliquis Full code Problem List: 1. Hypoglycemia Pain Ratin Pain Location: n/a Pain Goal: Pain 4 or less Pain Plan: prn Tomorrow's Labs & Rationales: bep
[2017-05-12 09:06] LABS: ABSOLUTE BASOPHIL COUNT 0 /CUMM (0.0-0.2); ABSOLUTE EOSINOPHIL COUNT 0.2 /CUMM (0.0-0.7); ABSOLUTE GRANULOCYTE CT 3.1 /CUMM (1.4-6.5); ABSOLUTE LYMPH COUNT 2.6 /CUMM (1.2-3.4); ABSOLUTE MONOCYTE COUNT 0.4 /CUMM (0.10-0.60); BASOPHIL % 0.4 % (0.0-2.0); EOSINOPHIL % 3.4 % (0-5); HEMATOCRIT 30.1 % (37-47); MEAN CORPUSCULAR HGB 30.5 PG (27.0-31.0); MEAN CORPUSCULAR HGB CONC 33.7 G/DL (33.0-37.0); MEAN CORPUSCULAR VOLUME 90.5 FL (81.0-99.0); MEAN PLATELET VOLUME 10.7 FL (7.4-10.4); PLATELET COUNT 193 /CUMM (130-400); RBC DISTRIBUTION WIDTH 14.4 % (11.5-14.5); RED BLOOD CELL CT 3.33 /CUMM (4.20-5.40); WHITE BLOOD CELL COUNT 6.3 /CUMM (4.8-10.8)
--- NOTE | 2017-05-12 09:46 | PN- Endocrinology ---
Assessment/Plan Endoscopy Assessment: 86 yo F with PMH of A.fib, hypertension, hyperlipidemia, GERD, right CVA with left hemiplegia, DM type 2, Anemia,chronic back pain, was brought in to the ED by ambulance after she was found to be unresponsive and her glucose level was low. She used to be on Levemir 8 units daily and Novolog coverage before meals which was discontinued several months ago as per her daughter. Patient shouldn't have taken any insulin or diabetes medication over the past several months. In ER, her glucose level was < 50 and she received D50w and then she was put on D51/2 NS at 50 ml/hour. Since then, her glucose level has been stable On 05/08/2017, her glucose level 94, insulin level 93.9. On 05/09/2017, her glucose 108, insulin 19.8 and cortisol 14.5; c-peptide level is still pending. On 05/10/2017, her glucose level 138 and insulin level 6.2 At this point, the above work up demnstrated that patient 's hypoglycemia on admission most likely is due to exogeneous insulin. However, we will follow c- peptide level just to be sure. As her po intake has been poor, she is still on D5 1/2 NS. The above findings have been touched base with Dr. Domingo and patient's daughter. Plan: stop IVF if her po intake improves. continue monitoring her glucose level. Subjective Subjective: She appears more alert this morning. Her FSGs were 134, 186, 107, 114, 128, 134 and 138. Objective Last 24 Hrs of Vital Signs/I&O Vital Signs Date Time Temp Pulse Resp B/P B/P Pulse O2 O2 Flow FiO2 Mean Ox Delivery Rate 05/12 0712 98.2 55 19 142/78 97 05/11 2342 67 152/80 05/11 2235 98.3 59 20 152/80 93 Room Air 05/11 1527 98.1 60 20 164/66 96 Room Air 05/11 1112 55 142/78 05/11 1112 55 14278 Intake & Output 05/12 1600 05/12 0800 05/12 0000 Intake Total 500 0 Output Total Balance 500 0 Intake, IV 500 Intake, Oral 0 0 Number 0 0 Bowel Movements
[2017-05-12 15:40] VITALS: BP 130/60
[2017-05-12 22:55] VITALS: BP 130/64
[2017-05-13 06:28] VITALS: BP 150/70
--- NOTE | 2017-05-13 07:04 | PN- Housestaff ---
Raman ARORA,Kike 05/13/17 0704: Subjective Follow-up For: Hypoglycemia Altered mental status Subjective: Patient seen and examined at bedside. She is resting comfortably. She had no acute events overnight. She is currently complaining of mild chronic joint pain of her wrists and ankles. She speaks softly but answers appropriately and responds to commands. She currently denies any shortness of breath, chest pain, lightheadedness, dizziness, diarrhea, nausea, vomiting, fever, chills. Review of Systems Constitutional: Denies: chills, diaphoresis, fever. EENTM: Reports: no symptoms. Cardiovascular: Reports: no symptoms. Respiratory: Reports: no symptoms. Gastrointestinal: Reports: no symptoms. Genitourinary: Reports: no symptoms. Musculoskeletal: Reports: joint pain (mild joint pain, chronic). Skin: Reports: no symptoms. Neurological/Psychological: Reports: pre-existing deficit. Objective Last 24 Hrs of Vital Signs/I&O Vital Signs Date Time Temp Pulse Resp B/P B/P Pulse O2 O2 Flow FiO2 Mean Ox Delivery Rate 05/13 0628 98.9 60 20 150/70 98 Room Air 05/12 2255 98.8 67 18 130/64 97 05/12 2111 64 148/84 05/12 1540 98.0 70 20 130/60 99 Room Air 05/12 1137 60 138/98 05/12 1137 60 138/98 05/12 0712 98.2 55 19 142/78 97 Intake & Output 05/13 0800 05/13 0000 05/12 1600 Intake Total 10 70 Output Total Balance 10 70 Intake, IV 10 10 Intake, Oral 0 0 Intake, Tube 60 Irrigant Number 2 0 3 Bowel Movements Physical Exam General Appearance: Alert, Cooperative, No Acute Distress, oriented only to person Skin Temp/Moisture Exam: Warm/Dry Cardiovascular: Regular Rate, Normal S1, Normal S2 Lungs: Clear to Auscultation, Normal Air Movement Abdomen: Normal Bowel Sounds, Soft, No Tenderness, PEG tube in place Neurological: L sided hemiplegia Extremities: No Clubbing, No Cyanosis, No Edema Current Medications: Current Medications Sig/Renee Start time Last Medication Dose Route Stop Time Status Admin Acetaminophen 650 MG .STK-MED ONE 05/12 1823 DC PO 05/12 1824 Acetaminophen 650 MG Q6P PRN 05/08 2114 AC 05/12 PO 1835 Acetaminophen 1,000 MG Q6P PRN 05/08 2114 AC IV Apixaban 2.5 MG BID 05/08 2199 AC 05/13 PO 1016 Atorvastatin Calcium 80 MG 1700 05/09 1700 AC 05/12 PO 1753 Carvedilol 3.125 MG BID 05/08 2199 AC 05/13 PO 1017 Gabapentin 100 MG BID 05/12 1000 AC 05/13 PO 1016 Losartan Potassium 50 MG DAILY 05/12 1000 AC 05/13 PO 1017 Melatonin 5 MG ONE TIME ONE 05/120 DC 05/12 PO 05/12 Omeprazole 40 MG DAILY AC 05/09 0700 AC PO Polyethylene Glycol 17 GM DAILY 05/11 1154 AC 05/12 PO 1134 Sertraline HCl 25 MG DAILY 05/09 1207 AC 05/13 PO 1016 Last 24 Hrs of Lab/Klaus Results Last 24 Hrs of Labs/Mics: Laboratory Tests 05/12/17 0800: Anion Gap 8, Estimated GFR > 60, BUN/Creatinine Ratio 20.0, CBC w Diff NO MAN DIFF REQ, RBC 3.33 L, MCV 90.5, MCH 30.5, MCHC 33.7, RDW 14.4, MPV 10.7 H, Gran % 49.0, Lymphocytes % 40.6, Monocytes % 6.6, Eosinophils % 3.4, Basophils % 0.4, Absolute Granulocytes 3.1, Absolute Lymphocytes 2.6, Absolute Monocytes 0.4 , Absolute Eosinophils 0.2, Absolute Basophils 0 Assessment/Plan Assessment: Patient is an 86-year-old female with a PMH significant for A. fib, HTN, HLD, GERD, CVA with residual left extremity hemiplegia, DM, ENEDINA, chronic pain who presented with altered mental status secondary to hypoglycemia #AMS She patient's daughter on this admission she has been significantly below her baseline mental function despite improvement of hypoglycemia. She reportedly did not recognize her and was answering his questions inappropriately. While this could represent hospital delerium it would be prudent to check UA and Uculture prior to DC -UA and urine culture -Based on lengthy discussion with the patients daughter about the risks of aspiration and potential decline of condition and possible , despite speech path recommendation for honey thick liquids we will DCing her on thin liquid diet at daughter's request. #Hypoglycemia Patient's glucose was 25 in the ED. Per discussion with patient's daughter she had an episode of hyperglycemia on last hospital admission at but has been off of insulin medication for the past several months. She admits that at one point several weeks ago she saw her home health aide giving insulin and that she does not believe the patient has received informed consent. C-peptide is low, making exogenous insulin administration most likely cause of this episode of hypoglycemia -continue to monitor FSGs -DC to STR Today #chronic medical problems including A.fiib, HTN, chronic pain, CVA -continue home medications diabetic diet DVT prophylaxis with KAYLEE smith Code Status: full code Problem List: 1. Hypoglycemia 2. 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 Had been on insulin previously, but stopped after having episodes of hypoglycemia. Currently not on any diabetic medications. Doing well today, fingersticks holding steady off fluids. Ate a small amount this morning. Confused today and yesterday, did not recognize her family. Per family she is far below her baseline mentally. Plan - Continue to general medicine - Send UA and urine culture - Discontinue Gabapentin - Follow endocrine recommendations - Continue home medications - DVT PPx - Anticipated discharge tomorrow
--- NOTE | 2017-05-13 09:40 | PN- Diabetes ---
Assessment/Plan Diabetes Assessment: 86 yo F with PMH of A.fib, hypertension, hyperlipidemia, GERD, right CVA with left hemiplegia, DM type 2, Anemia,chronic back pain, was brought in to the ED by ambulance after she was found to be unresponsive and her glucose level was low. She used to be on Levemir 8 units daily and Novolog coverage before meals which was discontinued several months ago as per her daughter. Patient shouldn't have taken any insulin or diabetes medication over the past several months. In ER, her glucose level was < 50 and she received D50w and then she was put on D51/2 NS at 50 ml/hour. Since then, her glucose level has been stable On 05/08/2017, her glucose level 94, insulin level 93.9. On 05/09/2017, her glucose 108, insulin 19.8 and cortisol 14.5; c-peptide level is still pending. On 05/10/2017, her glucose level 138 and insulin level 6.2 At this point, the above work up demnstrated that patient 's hypoglycemia on admission most likely is due to exogeneous insulin. However, we will follow c- peptide level just to be sure. The above findings have been touched base with Dr. Domingo and patient's daughter. Patient is alert and awake. IVF was discontinued. Her FSGs were 138, 159, 129, 107 and 89. Plan: continue monitor FSGs. Patient doesn't need any antidiabetic medications at thie point. Subjective Subjective: She stated that she feels well this morning. Objective Last 24 Hrs of Vital Signs/I&O Vital Signs Date Time Temp Pulse Resp B/P B/P Pulse O2 O2 Flow FiO2 Mean Ox Delivery Rate 05/13 0628 98.9 60 20 150/70 98 Room Air 05/12 2255 98.8 67 18 130/64 97 05/12 2111 64 148/84 05/12 1540 98.0 70 20 130/60 99 Room Air 05/12 1137 60 138/98 05/12 1137 60 138/98 Intake & Output 05/13 1600 05/13 0800 05/13 0000 Intake Total 10 70 Output Total Balance 10 70 Intake, IV 10 10 Intake, Oral 0 0 Intake, Tube 60 Irrigant Number 2 0 Bowel Movements Findings Pertinent Lab/Klaus Results: Laboratory Tests 05/13 0643 Chemistry Sodium (137 - 145 mmol/L) 140 Potassium (3.5 - 5.1 mmol/L) 3.9 Chloride (98 - 107 mmol/L) 113 H Carbon Dioxide (22 - 30 mmol/L) 20 L Anion Gap (5 - 16) 7 BUN (7 - 17 mg/dL) 12 Creatinine (0.5 - 1.0 mg/dL) 0.7 Estimated GFR (>60 ml/min) > 60 BUN/Creatinine Ratio (7 - 25 %) 17.1
--- NOTE | 2017-05-13 09:58 | Patient Discharge Instructions ---
Discharge Instructions General Discharge Information You were seen/treated for: hypoglycemia Special Instructions: Please follow up with your primary care physician within 1 week of discharge. Follow-up with Dr. Valenzuela within 1 week of discharge. Do not take any insulin products upon discharge. We recommend holding gabapentin for now given altered mental status. If neuropathic pain worsens, may restart with caution. Acute Coronary Syndrome Inclusion Criteria At DC or during hospital stay patient has or had the following: ACS DIAGNOSIS No Discharge Core Measures Meds if any: Prescribed or Continued at Discharge Meds if any: NOT Prescribed or Continued at Discharge Congestive Heart Failure Inclusion Criteria At DC or during hospital stay patient has or had the following: CHF DIAGNOSIS No Discharge Core Measures Meds if any: Prescribed or Continued at Discharge Meds if any: NOT Prescribed or Continued at Discharge Cerebrovascular accident Inclusion Criteria At DC or during hospital stay patient has or had the following: CVA/TIA Diagnosis No Discharge Core Measures Meds if any: Prescribed or Continued at Discharge Meds if any: NOT Prescribed or Continued at Discharge Venous thromboembolism Inclusion Criteria VTE Diagnosis No VTE Type NONE VTE Confirmed by (Test) NONE Discharge Core Measures - Per Current guidelines, there needs to be overlap - treatment for the first 5 days of Warfarin therapy. - If discharged on Warfarin prior to 5 days of - overlap therapy, the patient will need to be - assessed for post discharge needs including - *Post discharge parental anticoagulation - *Warfarin and/or parental anticoagulation education - *Follow up date to check INR post discharge At least 5 days overlap therapy as Inpatient No Meds if any: Prescribed or Continued at Discharge Note: Overlap Therapy is Warfarin and Anticoagulant Meds if any: NOT Prescribed or Continued at Discharge
[2017-05-13 14:17] VITALS: BP 150/78
[2017-05-13 16:48] VITALS: BP 150/78
== END 2017-05-13 18:40 | DRG 638 ==
LOC: ERH 12:25 → 2NB 17:44 → ERHI 17:44 → ENRESERV 18:47 → ENTRNSPT 19:04 → EDTRNSPT 19:18 → EDTRNSPTSTS 19:18 → 2NB 19:20 → CMPTRNSPT 19:33 → 2NB 05-12 08:56
PROVIDERS: Internal Medicine Hematology & Oncology; Physician Assistant; Radiology Vascular & Interventional Radiology
DX: E11.649 Type 2 diabetes mellitus with hypoglycemia without coma (principal); I69.354 Hemiplegia and hemiparesis following cerebral infarction affecting left non-dominant side; N17.9 Acute kidney failure, unspecified; E87.0 Hyperosmolality and hypernatremia; I48.2 Chronic atrial fibrillation; K62.6 Ulcer of anus and rectum; E86.0 Dehydration; E11.21 Type 2 diabetes mellitus with diabetic nephropathy; I70.1 Atherosclerosis of renal artery; R13.10 Dysphagia, unspecified; Z93.1 Gastrostomy status; D72.829 Elevated white blood cell count, unspecified; Z79.01 Long term (current) use of anticoagulants; K21.9 Gastro-esophageal reflux disease without esophagitis; I69.391 Dysphagia following cerebral infarction; F03.90 Unspecified dementia, unspecified severity, without behavioral disturbance, psychotic disturbance, mood disturbance, and anxiety; I12.9 Hypertensive chronic kidney disease with stage 1 through stage 4 chronic kidney disease, or unspecified chronic kidney disease; M54.9 Dorsalgia, unspecified; K59.00 Constipation, unspecified; K31.9 Disease of stomach and duodenum, unspecified; H26.9 Unspecified cataract; I83.90 Asymptomatic varicose veins of unspecified lower extremity; D25.9 Leiomyoma of uterus, unspecified; F32.9 Major depressive disorder, single episode, unspecified; D64.9 Anemia, unspecified; E78.5 Hyperlipidemia, unspecified; R41.82 Altered mental status, unspecified
CPT/HCPCS: 2NBSP; 36415; 36592; 74177; 80307; 81003; 82436; 83525; 87086; 87804; 87804-59; 93005; 93010; 96374; 99291; G0480; J7042

== ENCOUNTER 2017-07-03 12:51 | Inpatient (IN) | payer OTHER, MEDICARE ==
[~2017-07-03] VITALS: Ht 157.5 cm; Wt 78.0 kg
[~2017-07-03 12:51] MED LIST changes: +CARVEDILOL3.125 M1 PO
--- NOTE | 2017-07-03 13:13 | ED GENERAL ADULT ---
History of Present Illness General Chief Complaint: Altered Mental Status Stated Complaint: ALTERED MENTAL STATUS Source: patient, family, old records, EMS Exam Limitations: clinical condition Vital Signs & Intake/Output Vital Signs & Intake/Output Vital Signs Date Time Temp Pulse Resp B/P B/P Pulse O2 O2 Flow FiO2 Mean Ox Delivery Rate 07/05 1604 48 173/75 07/05 1600 98.6 50 10 154/70 97 Room Air Room Air 07/05 0950 200/68 07/05 0800 98.2 50 18 156/60 96 Room Air Room Air 07/05 0400 94 Room Air 07/05 0000 95 Room Air 07/04 2300 98.8 52 17 140/60 97 Room Air 07/04 2200 95 Room Air ED Intake and Output 07/05 0000 07/04 1200 Intake Total 2020 1049 Output Total 365 100 Balance 1655 949 Intake, Blood 350 Product Intake, IV 1850 699 Intake, Oral 0 Intake, Tube 170 Irrigant Number 5 1 Bowel Movements Output, Stool 50 Output, Urine 315 100 Allergies Coded Allergies: NO KNOWN ALLERGIES (05/29/15) Reconcile Medications Acetaminophen 325 MG TABLET 2 TAB PO TID PAIN (Reported) Apixaban (Eliquis) 2.5 MG TABLET 1 TAB PO BID BLOOD THINNR (Reported) Atorvastatin Calcium 80 MG TABLET 1 TAB PO 1700 HLD (Reported) Carvedilol 3.125 MG TABLET 1 TAB PO BID HEART (Reported) Ergocalciferol (Vitamin D2) (Vitamin D2) 50,000 UNIT CAPSULE 1 CAP PO QFRI SUPPLEMENT (Reported) Ferrous Sulfate (IRON) 325 MG (65 MG IRON) TABLET 1 TAB PO DAILY SUPPLEMENT ( Reported) Ferrous Sulfate 300 MG (60 MG IRON)/5 ML LIQUID 7.5 ML PO QAM SUPPLEMENT ( Reported) Hydralazine HCl 50 MG TABLET 1 TAB PO TID HEART (Reported) Lactobacillus Acidophilus (Probiotic) 10 BILLION CELL CAPSULE 1 CAP PO DAILY PROBIOTIC (Reported) Losartan Potassium 50 MG TABLET 1 TAB PO QPM HEART/BP (Reported) Multivitamin (Multivitamins) 1 EACH CAPSULE 1 TAB PO DAILY SUPPLEMENT ( Reported) Pantoprazole Sodium 40 MG TABLET.DR 1 TAB PO DAILY GI (Reported) Sertraline HCl 25 MG TABLET 2 TAB PO DAILY MENTAL HEALTH (Reported) Vitamin B Complex (Super B-50 Complex) 1 EACH CAPSULE 1 CAP PO DAILY SUPPLEMENT (Reported) Triage Note: PT BIBA FROM HOME WITH C/O ALTERED MENTAL STATUS WITH INCREASED LETHARGY AND CONFUSION, REPORTED ABNORMAL LABS, HYPOTENSION AND BRADYCARDIA, DIARRHEA SINCE LAST NIGHT. PT ARRIVES WITH IVF OPEN, BP EN ROUTE IMPROVED TO 84/44, BLOOD GLUCOSE 75. ON ARRIVAL, PT PLACED ON TELE AND PACING PADS R/T HR OF 40. BLOOD GLUCOSE 53. PT RESPONSIVE TO PAINFUL STIMULI Triage Nurses Notes Reviewed? yes Onset: Gradual Duration: worse persistent since (2 days) Timing: recent history Injury Environment: home Severity: severe No Modifying Factors: none Associated Symptoms: cough HPI: Patient is an 86-year-old female with history of atrial fibrillation, CVA, dementia, hypertension and hyperlipidemia presenting to the emergency department via EMS with family with chief complaint of generalized malaise increasing weakness, diarrhea thing getting worse over the past 2 days. Family reports that she was just discharged from another facility last Friday where she was admitted for dehydration. No fevers at home. Patient has been coughing with intermittent sputum production according to family members. Family reports that she is not good about drinking, unable to tolerate anything by mouth and they have been trying to use the feeding tube itself was fluids without success. The visiting nurse came this morning and felt the patient did not look well, wasn't as arousable as usual so they decided to bring her in for evaluation. Patient also has history of diabetes, history of hypoglycemia in the past. Patient reports diffuse abdominal pain "from coughing". Patient is wheelchair-bound. She has left upper and lower extremity deficits secondary to the CVA with garbled speech intermittently. According to EMS arrival patient was hypotensive, minimally responsive and hypoglycemic. they started IV fluids to help with the pressure. Her heart rate was also in the 40s on arrival. Family reports that they recently decreased her dose of blood pressure medication. Patient also has history of anemia, hemoglobin most recent level was 10 according to family member. (Althea Elaine) Past History Travel History Traveled to [place] past 21 day No Medical History Any Pertinent Medical History? 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 MOTHER (MVA). , Age 30-40; Cause: MVA (motor vehicle accident). FATHER, , Age 30-40; Cause: MVA (motor vehicle accident). Hx Contributory? No (Althea Elaine) Review of Systems Review of Systems Constitutional: Reports: see HPI, malaise, weakness. Comments Review of systems: See HPI, All other systems negative. His systems provided by patient, EMS and family Constitutional, no chills fever or weight loss HEENT: No visual changes no sore throat Cardiovascular: No chest pain ,palpitation , orthopnea or ankle swelling Skin, no jaundice no rashes Respiratory: No dyspnea, no hemoptysis GI: no vomiting : No hematuria Muscle skeletal: no back pain, no neck pain, Neurologic: No numbness Psych: No stress anxiety or depression,. Heme/endocrine: No bruising no bleeding no polyuria or polydipsia Immunology: No splenectomy or history of AIDS (Althea Elaine) Physical Exam Physical Exam General Appearance: no apparent distress, arousable to tactile and verbal stimuli Comments: Well-developed well-nourished person in no acute distress, lethargic HEENT: Pupils equally round and reactive to light and accommodation. Pupils are approximately 2 mm bilaterally. Nose is atraumatic. External auditory canal and Tympanic membranes clear. Pharynx normal. No swelling or edema. dry oral mucosa, dry lips. Pallor noted to ocular conjunctiva bilaterally. Neck: Supple, no lymphadenopathy Back: Nontender Cardiovascular: Irregular rate and rhythms, unable to auscultate any murmurs rubs or gallops Respiratory: Chest nontender. No respiratory distress.breath sounds diminished to auscultation bilaterally at the bases Abdomen: Soft, diffusely tender without rebound or guarding, nondistended, no appreciable organomegaly. Normal bowel sounds. No ascites rectal: Extensive soft stool noted in the rectal canal. Greenish brown stool, guaiac positive. Extremity: No edema, no calf tenderness to palpation, normal and equal pulses. Babinski reflex present on the right lower extremity, unable to elicit reflexes in left lower extremities. Neuro: fatigued,arousable to physical stimuli, oriented to person and place, confused about time and situation, private sector executive strength is strong on the right upper extremity, unable to private sector executive with left hand secondary to deficit from previous CVA. Unable to perform straight leg raise bilaterally. Patient is able to smile and lift both sides of her mouth, able to stick her tongue out, no uvula deviation or tongue deviation noted. Patient able to raise eyebrows without difficulty. Skin: No appreciable rash on exposed skin, skin is warm and dry. Patient appears pale. Psych: Lethargic, takes several attempts to redirect during exam, poor memory Core Measures ACS in differential dx? Yes CVA/TIA Diagnosis: No Sepsis Present: No Sepsis Focused Exam Completed? No (Vince HUGHES,Althea) Progress Differential Diagnoses I considered the following diagnoses in my evaluation of the patient: CVA, TIA, dehydration, electrolyte abnormality, UTI, pneumonia, bronchitis, worsening renal function, GI bleed with symptomatic anemia Plan of Care: Orders Procedure Date/time Status Nothing by Mouth 07/07 B Active ICU LAB BUNDLE 07/06 0500 Active CBC WITHOUT DIFFERENTIAL 07/06 0500 Active Tube Feeding 07/05 D Active BASIC ELECTROLYTES PLUS BUN&CR 07/05 1800 Active Arredondo, Insertion/Removal/Asses 07/05 1132 Active Lab Add-on Test 07/05 UNK Active EKG 07/04 2117 Active EKG 07/04 UNK Active Current Medications Sig/Reene Start time Last Medication Dose Stop Time Status Admin Hydralazine HCl 100 MG TID 07/05 2100 AC (Apresoline) Sertraline HCl 50 MG DAILY 07/05 1753 AC 07/05 (Zoloft) 1834 Ampicillin 1,000 MG Q8 07/05 1400 AC 07/05 (Omnipen) 1605 Famotidine 20 MG DAILY 07/05 1100 AC 07/05 (Pepcid) 1603 Sodium Bicarbonate 100 MEQ Q13H 07/05 1045 CAN (Sodium Bicarbonate 07/05 2344 8.4%) Dextrose/Sodium 1,000 ML Chloride (D5W-1/2 Normal Saline 1000ML) Sodium Bicarbonate 75 MEQ Q10H 07/05 1045 AC 07/05 (Sodium Bicarbonate 07/054 1315 8.4%) Dextrose/Sodium 1,000 ML Chloride (D5W-1/2 Normal Saline 1000ML) Dextrose/Sodium 1,000 ML Q13H 07/05 1030 CAN Chloride 07/05 2329 (D5W-1/2 Normal Saline 1000ML) Sodium Bicarbonate 75 MEQ CONTINOUS INFUSION 07/05 1030 CAN (Sodium Bicarbonate 07/05 2349 8.4%) Sodium Chloride 1,000 ML (Half Normal Saline) Gabapentin 100 MG Q8 07/04 1245 AC 07/05 (Neurontin) 1604 Laboratory Tests 07/05/17 0351: Anion Gap 8, Estimated GFR 59 L, Glucose 124 H, Calcium 7.8 L, Phosphorus 2.7 , Magnesium 2.1, Total Bilirubin 0.6, AST 14, ALT 21, Albumin 2.0 L, CBC w Diff MAN DIFF ORDERED, RBC 3.21 L, MCV 89.6, MCH 30.3, MCHC 33.8, RDW 15.8 H, MPV 10.8 H, Gran % 52.0, Lymphocytes % 36.7, Monocytes % 10.0 H, Eosinophils % 0.9 , Basophils % 0.4, Absolute Granulocytes 2.7, Segmented Neutrophils 68, Band Neutrophils 1, Absolute Lymphocytes 1.9, Lymphocytes 30, Monocytes 1 L, Absolute Monocytes 0.5, Absolute Eosinophils 0, Absolute Basophils 0, Platelet Estimate DECREASED, Poikilocytosis 1+, Ovalocytes 1+ Microbiology 07/05 1044 STOOL: Stool Culture - CAN Cancelled: Cancelled via OE: Per MD Decision Spoke with Dr. Buckner covering for GI, recommending that housestaff consult them formally to see the patient is requested. Patient receiving blood transfusion at this time. Consent obtained by granddaughter Diagnostic Imaging: Viewed by Me: Radiology Read, CT Scan. Discussed w/RAD: Radiology Read, CT Scan. Radiology Impression: PATIENT: CHAMP COBIAN PRESENT AGE: 86 PATIENT ACCOUNT NO: [id number] : 29 LOCATION: [facility] ORDERING PHYSICIAN: Althea HUGHES SERVICE DATE: 07/03/17 EXAM TYPE: RAD - XRY-PORTABLE CHEST XRAY EXAMINATION: XR PORTABLE CHEST CLINICAL INFORMATION: 86- year-old female with acute mental status change. Presumptive diagnosis: Pneumonia. COMPARISON: None TECHNIQUE: Portable AP semierect view of the chest was obtained. FINDINGS: Reexamination shows the heart to be abnormally enlarged. Pulmonary vascularity is normal. There is no evidence of acute pulmonary parenchymal or pleural disease. An odd artifact is superimposed upon the patient 's right lower chest. IMPRESSION: Cardiomegaly as before. DICTATED BY: Weston Alexandre MD DATE/TIME DICTATED:07/03/171412 HEARING AID ASSISTANT:ZOHREH DATE/ TIME TRANSCRIBED:07/03/171412 CONFIDENTIAL, DO NOT COPY WITHOUT APPROPRIATE AUTHORIZATION. <Electronically signed in Other Vendor System> SIGNED BY: Weston Alexandre MD 07/03/171419, PATIENT: CHAMP COBIAN PRESENT AGE: 86 PATIENT ACCOUNT NO: [id number] : 29 LOCATION: [facility] ORDERING PHYSICIAN: Althea HUGHES SERVICE DATE: 07/03/17 EXAM TYPE: CAT - CT ABD & PELVIS W/O IV CONTRAS EXAMINATION: CT ABDOMEN AND PELVIS WITHOUT CONTRAST CLINICAL INFORMATION: Abdominal pain. Evaluate for abdominal process. COMPARISON: CT abdomen and pelvis 05/08/2017. TECHNIQUE: Multidetector volumetric imaging was performed from the superior aspect of the liver through the pubic symphysis. Sagittal and coronal reformatted images were obtained on the technologist's workstation. DLP: 676.8 mGy-cm FINDINGS: LUNG BASES: There are small bilateral pleural effusions with associated bibasilar subsegmental atelectasis. Trace pericardial effusion. The density of blood within the cardiac chambers and aorta is relatively low indicating the likelihood of underlying anemia. LIVER, GALLBLADDER, AND BILIARY TREE: The unenhanced liver attenuation is homogeneous with no evidence of a discrete hepatic parenchymal mass. The gallbladder is unremarkable with no evidence of radiopaque gallstones, gallbladder wall thickening, or obvious pericholecystic inflammatory changes. PANCREAS: Unremarkable. SPLEEN: Unremarkable. ADRENAL GLANDS: Unremarkable. KIDNEYS AND URETERS: Kidneys are symmetric in size. There is a well marginated exophytic lesion arising from the interpolar left kidney that is consistent with a renal cyst that was better demonstrated on the CT scan of abdomen and pelvis from 05/08/2017. No nephrolithiasis or hydronephrosis. No worrisome mass or calcifications visualized along the expected course the right or left ureter. BLADDER: Unremarkable. GASTROINTESTINAL TRACT: A gastrostomy tube is in place. Stomach and small bowel are otherwise unremarkable. No evidence to suggest obstruction. No free intraperitoneal air or fluid. The appendix is not definitively visualized however there are no abnormal inflammatory changes at the base of cecum to suggest acute appendicitis. The colon is unremarkable. There is a relatively large volume of stool within the rectum and circumferential mucosal thickening within the rectal mucosa as well as mild inflammatory stranding within the perirectal fat. These findings indicate the likelihood of underlying stercoral colitis. ABDOMINAL WALL: No significant hernia is appreciated. LYMPH NODES: No pathologically enlarged mesenteric or retroperitoneal lymph nodes. VASCULAR: Heavily calcified atherosclerotic plaque involves the abdominal aorta and iliac vessels. The unenhanced inferior vena cava is grossly unremarkable. PELVIC VISCERA: There is a fibroid uterus. The dominant fibroid located at the uterine fundus measures 6.7 cm in maximal transaxial dimension which represents no substantial change from the recently obtained examination from 05/08/2017. No worrisome adnexal mass. OSSEOUS STRUCTURES: There is no acute osseous finding. Specifically no worrisome lytic or blastic osseous lesion. No evidence of acute fracture. Slight anterolisthesis of L4 on L5 that appears to be related to advanced facet degenerative changes at this level. IMPRESSION: There is a relatively large volume of stool within the rectum and circumferential thickening within the rectal mucosa indicating the likelihood of underlying stercoral colitis. Otherwise no abnormal finding to provide a definitive explanation for the patient's abdominal pain. Of note the density of blood within the cardiac chambers and aorta is relatively low indicating likelihood of underlying anemia therefore correlation with the patient's hematocrit is recommended. There are small bilateral pleural effusions with associated bibasilar subsegmental atelectasis and a trace pericardial effusion. Mild edema within the subcutaneous tissues indicates the possibility of volume overload or third space redistribution of fluid. There is a fibroid uterus that remains grossly unchanged when compared to the recently obtained CT scan of the abdomen and pelvis from 05/08/2017. DICTATED BY: Kalani ARORA,Noam Hercules DATE/TIME DICTATED:07/03/171508 HEARING AID ASSISTANT:ZOHREH DATE/TIME TRANSCRIBED:07/03/171508 CONFIDENTIAL, DO NOT COPY WITHOUT APPROPRIATE AUTHORIZATION. <Electronically signed in Other Vendor System> SIGNED BY: Noam Uriarte MD 07/03/17 1531, PATIENT: CHAMP COBIAN PRESENT AGE: 86 PATIENT ACCOUNT NO: [id number] : 29 LOCATION: [facility] ORDERING PHYSICIAN: Althea HUGHES SERVICE DATE: 07/03/17 EXAM TYPE: CAT - CT HEAD WO IV CONTRAST EXAMINATION: CT HEAD WITHOUT CONTRAST CLINICAL INFORMATION: Right-sided facial droop and altered mental status. COMPARISON: Head CT 05/08/2017. TECHNIQUE: Contiguous axial imaging was performed from the skull base to vertex without intravenous administration of contrast. FINDINGS: There is a chronic right MCA territory infarct exhibiting a punctate calcification. There is associated ex vacuo dilatation of the right lateral ventricle. There is chronic right-sided wallerian degeneration. There is mild background chronic microangiopathy. Atherosclerotic calcification throughout the intracranial arterial vasculature. There is no intracranial hemorrhage, hydrocephalus, extra-axial surface collection, midline shift, or other herniation pattern. Francis to white matter differentiation is diffusely maintained without evidence of an evolved acute territorial infarct. The basilar cisterns are preserved. No significant soft tissue abnormality. No acute osseous abnormality. There is mild mucosal thickening throughout the ethmoid air cells bilaterally. Mastoid air cells are clear. IMPRESSION: - No acute intracranial findings. - Chronic right MCA territory infarct associated with chronic right- sided wallerian degeneration. Global cerebral volume loss and chronic microangiopathy. - Extensive atherosclerotic calcification throughout the intracranial arterial vasculature. DICTATED BY: Jovany Naik MD DATE/TIME DICTATED:07/03/171442 HEARING AID ASSISTANT:ZOHREH DATE/TIME TRANSCRIBED:1442 CONFIDENTIAL, DO NOT COPY WITHOUT APPROPRIATE AUTHORIZATION. < Electronically signed in Other Vendor System> SIGNED BY: Jovany Naik MD 07/03/17 1456 Initial ED EKG: afib, 52 bpm Prior EKG: unchanged (Vince HUGHES,Althea) Departure Departure Time of Disposition: 1658 Disposition: STILL A PATIENT Condition: Stable Clinical Impression Primary Impression: Symptomatic anemia Secondary Impressions: Colitis, Dehydration, Hypoglycemia, Hypokalemia, Thrombocytopenia Referrals: Patient Has No Primary Care Dr (PCP/Family) Departure Forms: Customer Survey General Discharge Information Admission Note Spoke With: Eulalio ARORA,Estella Documentation of Exam: Documentation of any treatments & extenuating circumstances including Concerns Regarding Discharge (functional status, medication knowledge or non-compliance, living conditions, etc.) that warrant an admission rather than observation: Patient requiring slow blood transfusion, GI consultation secondary to anemia and positive guaiac, patient may need scope, stool cultures need to return, close monitoring of blood glucose level as it continues to keep dropping. (Althea Elaine) PA/PIANO ACCOMPANIST Co-Sign Statement Statement: ED Attending supervision documentation- x I saw and evaluated the patient. I have also reviewed all the pertinent lab results and diagnostic results. I agree with the findings and the plan of care as documented in the PA's/PIANO ACCOMPANIST's documentation. Weak, dizzy orthostatic, diarrhea with heme + stools for symptomatic anemia [] I have reviewed the ED Record and agree with the PA's/PIANO ACCOMPANIST's documentation. [] Additions or exceptions (if any) to the PAs/PIANO ACCOMPANIST's note and plan are summarized below: [] (Swetha ARORA,Giuseppe) Critical Care Note Critical Care Note Critical Care Time: 30-74 min (Althea Elaine) Critical Care Note Critical Care Time: 30-74 min
[2017-07-03 13:28] LABS: ABSOLUTE BASOPHIL COUNT 0 /CUMM (0.0-0.2); ABSOLUTE EOSINOPHIL COUNT 0 /CUMM (0.0-0.7); ABSOLUTE LYMPH COUNT 1.7 /CUMM (1.2-3.4); ABSOLUTE MONOCYTE COUNT 0.2 /CUMM (0.10-0.60); BASOPHIL % 0.2 % (0.0-2.0); EOSINOPHIL % 0.1 % (0-5); GRANULOCYTE % 61.3 % (42.2-75.2); MEAN CORPUSCULAR HGB 30.9 PG (27.0-31.0); MEAN CORPUSCULAR HGB CONC 33.8 G/DL (33.0-37.0); MEAN CORPUSCULAR VOLUME 91.4 FL (81.0-99.0); MEAN PLATELET VOLUME 11.8 FL (7.4-10.4); PLATELET COUNT 120 /CUMM (130-400); RBC DISTRIBUTION WIDTH 15.9 % (11.5-14.5); RED BLOOD CELL CT 2.36 /CUMM (4.20-5.40); WHITE BLOOD CELL COUNT 4.8 /CUMM (4.8-10.8)
[2017-07-03 13:32] LABS: HEMATOCRIT 21.5 % (37-47)
[2017-07-03 13:34] LABS: PT 15.1 SEC (9.4-12.5); PTT 31 SEC (25-37)
--- NOTE | 2017-07-03 14:20 | RADIOLOGY REPORT ---
EXAMINATION: XR PORTABLE CHEST CLINICAL INFORMATION: 86-year-old female with acute mental status change. Presumptive diagnosis: Pneumonia. COMPARISON: None TECHNIQUE: Portable AP semierect view of the chest was obtained. FINDINGS: Reexamination shows the heart to be abnormally enlarged. Pulmonary vascularity is normal. There is no evidence of acute pulmonary parenchymal or pleural disease. An odd artifact is superimposed upon the patient's right lower chest. IMPRESSION: Cardiomegaly as before.
--- NOTE | 2017-07-03 14:56 | CT SCAN REPORT ---
EXAMINATION: CT HEAD WITHOUT CONTRAST CLINICAL INFORMATION: Right-sided facial droop and altered mental status. COMPARISON: Head CT 05/08/2017. TECHNIQUE: Contiguous axial imaging was performed from the skull base to vertex without intravenous administration of contrast. FINDINGS: There is a chronic right MCA territory infarct exhibiting a punctate calcification. There is associated ex vacuo dilatation of the right lateral ventricle. There is chronic right-sided wallerian degeneration. There is mild background chronic microangiopathy. Atherosclerotic calcification throughout the intracranial arterial vasculature. There is no intracranial hemorrhage, hydrocephalus, extra-axial surface collection, midline shift, or other herniation pattern. Francis to white matter differentiation is diffusely maintained without evidence of an evolved acute territorial infarct. The basilar cisterns are preserved. No significant soft tissue abnormality. No acute osseous abnormality. There is mild mucosal thickening throughout the ethmoid air cells bilaterally. Mastoid air cells are clear. IMPRESSION: - No acute intracranial findings. - Chronic right MCA territory infarct associated with chronic right-sided wallerian degeneration. Global cerebral volume loss and chronic microangiopathy. - Extensive atherosclerotic calcification throughout the intracranial arterial vasculature.
--- NOTE | 2017-07-03 15:31 | CT SCAN REPORT ---
EXAMINATION: CT ABDOMEN AND PELVIS WITHOUT CONTRAST CLINICAL INFORMATION: Abdominal pain. Evaluate for abdominal process. COMPARISON: CT abdomen and pelvis 05/08/2017. TECHNIQUE: Multidetector volumetric imaging was performed from the superior aspect of the liver through the pubic symphysis. Sagittal and coronal reformatted images were obtained on the technologist's workstation. DLP: 676.8 mGy-cm FINDINGS: LUNG BASES: There are small bilateral pleural effusions with associated bibasilar subsegmental atelectasis. Trace pericardial effusion. The density of blood within the cardiac chambers and aorta is relatively low indicating the likelihood of underlying anemia. LIVER, GALLBLADDER, AND BILIARY TREE: The unenhanced liver attenuation is homogeneous with no evidence of a discrete hepatic parenchymal mass. The gallbladder is unremarkable with no evidence of radiopaque gallstones, gallbladder wall thickening, or obvious pericholecystic inflammatory changes. PANCREAS: Unremarkable. SPLEEN: Unremarkable. ADRENAL GLANDS: Unremarkable. KIDNEYS AND URETERS: Kidneys are symmetric in size. There is a well marginated exophytic lesion arising from the interpolar left kidney that is consistent with a renal cyst that was better demonstrated on the CT scan of abdomen and pelvis from 05/08/2017. No nephrolithiasis or hydronephrosis. No worrisome mass or calcifications visualized along the expected course the right or left ureter. BLADDER: Unremarkable. GASTROINTESTINAL TRACT: A gastrostomy tube is in place. Stomach and small bowel are otherwise unremarkable. No evidence to suggest obstruction. No free intraperitoneal air or fluid. The appendix is not definitively visualized however there are no abnormal inflammatory changes at the base of cecum to suggest acute appendicitis. The colon is unremarkable. There is a relatively large volume of stool within the rectum and circumferential mucosal thickening within the rectal mucosa as well as mild inflammatory stranding within the perirectal fat. These findings indicate the likelihood of underlying stercoral colitis. ABDOMINAL WALL: No significant hernia is appreciated. LYMPH NODES: No pathologically enlarged mesenteric or retroperitoneal lymph nodes. VASCULAR: Heavily calcified atherosclerotic plaque involves the abdominal aorta and iliac vessels. The unenhanced inferior vena cava is grossly unremarkable. PELVIC VISCERA: There is a fibroid uterus. The dominant fibroid located at the uterine fundus measures 6.7 cm in maximal transaxial dimension which represents no substantial change from the recently obtained examination from 05/08/2017. No worrisome adnexal mass. OSSEOUS STRUCTURES: There is no acute osseous finding. Specifically no worrisome lytic or blastic osseous lesion. No evidence of acute fracture. Slight anterolisthesis of L4 on L5 that appears to be related to advanced facet degenerative changes at this level. IMPRESSION: There is a relatively large volume of stool within the rectum and circumferential thickening within the rectal mucosa indicating the likelihood of underlying stercoral colitis. Otherwise no abnormal finding to provide a definitive explanation for the patient's abdominal pain. Of note the density of blood within the cardiac chambers and aorta is relatively low indicating likelihood of underlying anemia therefore correlation with the patient's hematocrit is recommended. There are small bilateral pleural effusions with associated bibasilar subsegmental atelectasis and a trace pericardial effusion. Mild edema within the subcutaneous tissues indicates the possibility of volume overload or third space redistribution of fluid. There is a fibroid uterus that remains grossly unchanged when compared to the recently obtained CT scan of the abdomen and pelvis from 05/08/2017.
--- NOTE | 2017-07-03 17:08 | History & Physical ---
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 Eosinophils (0.0 - 0.7 /CUMM) 0 Absolute Basophils (0.0 - 0.2 /CUMM) 0 Miscellaneous Phlebotomy Draw Site RIGHT RADIAL CT abd/pelvis. IMPRESSION: There is a relatively large volume of stool within the rectum and circumferential thickening within the rectal mucosa indicating the likelihood of underlying stercoral colitis. Otherwise no abnormal finding to provide a definitive explanation for the patient's abdominal pain. Of note the density of blood within the cardiac chambers and aorta is relatively low indicating likelihood of underlying anemia therefore correlation with the patient's hematocrit is recommended. There are small bilateral pleural effusions with associated bibasilar subsegmental atelectasis and a trace pericardial effusion. Mild edema within the subcutaneous tissues indicates the possibility of volume overload or third space redistribution of fluid. There is a fibroid uterus that remains grossly unchanged when compared to the recently obtained CT scan of the abdomen and pelvis from 05/08/2017. CT head: IMPRESSION: - No acute intracranial findings. - Chronic right MCA territory infarct associated with chronic right-sided wallerian degeneration. Global cerebral volume loss and chronic microangiopathy. - Extensive atherosclerotic calcification throughout the intracranial arterial vasculature. CXR: IMPRESSION: Cardiomegaly as before. A/P; 86-year-old female with past medical history significant for a fibrillation , hypertension, DM, Anemia hyperlipidemia, GERD, chronic diastolic dysfunction, history of CVA, was recently admitted to [facility] with the diarrhea and lethargy. Discharged 2 days ago and since then continued to have diarrhea, abd pain. Patient admitted to ICU with lethargy, unable to arouse, significant bradycardia , hypotension, diarrhea with CT scan showing large volume of stool and Stercoral colitis with probably seeping of the stool, acute renal failure, episodes of hypoglycemia requiring D 50 and now on dextrose IV fluids, acute blood loss anemia on chronic anemia with GI bleed and guaiac stool positive. Patient receiving RBC transfusion in the emergency room. She received fluids and will continue to receive fluids. She might need triple-lumen and pressors. ABG shows metabolic acidosis. Patient might need to be intubated because she is lethargic and will not be able to secure her airways. [employer] has been called and I spoke with Dr. Menjivar. Stat cardiology consult will be obtained for significant bradycardia. Patient has temporary pacer pads on. Monitor H&H and creatinine. GI should be called for consult. Would recommend holding her eliquis for now. Please replete her potassium and monitor BEP. Please check stool studies including stool for C. difficile due to her recent hospitalization , stool cultures. DVT px; ALPS. Full code. Discussed with family at length. DVT px; ALPS. Full code. Discussed with family at length.
[2017-07-03] MEDS ORDERED: ACETAMINOPHEN325 M2 PO (17:59)
[2017-07-03] MEDS ORDERED: FERROUS SU300 MG/51 PO (18:03)
[2017-07-03 20:00] VITALS: BP 132/68
--- NOTE | 2017-07-03 22:54 | Acceptance Note - Resident/Int ---
Subjective Living Situation: home self care Review of Systems Constitutional: Reports: see HPI. Objective Last 24 Hrs of Vital Signs/I&O Vital Signs Date Time Temp Pulse Resp B/P B/P Pulse O2 O2 Flow FiO2 Mean Ox Delivery Rate 07/03 1926 138/62 07/04 1915 97.3 45 12 136/72 100 Nasal 2.0L Cannula 07/03 1745 97.2 36 12 84/50 100 Nasal 2.0L Cannula 07/03 1608 97.4 43 16 139/66 100 Nasal 2.0L Cannula 07/03 1407 97.1 07/03 1308 91 Room Air 07/03 1301 94.1 41 14 107/53 92 Room Air Physical Exam General Appearance: Alert, Oriented X3, Cooperative
[2017-07-04 02:33] LABS: ABSOLUTE BASOPHIL COUNT 0 /CUMM (0.0-0.2); ABSOLUTE EOSINOPHIL COUNT 0 /CUMM (0.0-0.7); ABSOLUTE GRANULOCYTE CT 4.4 /CUMM (1.4-6.5); ABSOLUTE MONOCYTE COUNT 0.8 /CUMM (0.10-0.60); BASOPHIL % 0.3 % (0.0-2.0); EOSINOPHIL % 0.1 % (0-5); GRANULOCYTE % 60.7 % (42.2-75.2); MEAN CORPUSCULAR HGB 30.7 PG (27.0-31.0); MEAN CORPUSCULAR HGB CONC 33.8 G/DL (33.0-37.0); MEAN CORPUSCULAR VOLUME 90.8 FL (81.0-99.0); MEAN PLATELET VOLUME 11.2 FL (7.4-10.4); PLATELET COUNT 113 /CUMM (130-400); RBC DISTRIBUTION WIDTH 14.9 % (11.5-14.5); WHITE BLOOD CELL COUNT 7.2 /CUMM (4.8-10.8)
[2017-07-04 02:39] LABS: HEMATOCRIT 31.9 % (37-47); RED BLOOD CELL CT 3.51 /CUMM (4.20-5.40)
[2017-07-04 06:32] LABS: ABSOLUTE BASOPHIL COUNT 0 /CUMM (0.0-0.2); ABSOLUTE EOSINOPHIL COUNT 0 /CUMM (0.0-0.7); ABSOLUTE GRANULOCYTE CT 3.4 /CUMM (1.4-6.5); ABSOLUTE LYMPH COUNT 1.8 /CUMM (1.2-3.4); ABSOLUTE MONOCYTE COUNT 0.5 /CUMM (0.10-0.60); BASOPHIL % 0 % (0.0-2.0); EOSINOPHIL % 0.3 % (0-5); GRANULOCYTE % 59.1 % (42.2-75.2); HEMATOCRIT 30.9 % (37-47); MEAN CORPUSCULAR HGB 30.7 PG (27.0-31.0); MEAN CORPUSCULAR HGB CONC 33.9 G/DL (33.0-37.0); MEAN CORPUSCULAR VOLUME 90.6 FL (81.0-99.0); PLATELET COUNT 125 /CUMM (130-400); RBC DISTRIBUTION WIDTH 15.9 % (11.5-14.5); RED BLOOD CELL CT 3.41 /CUMM (4.20-5.40); WHITE BLOOD CELL COUNT 5.7 /CUMM (4.8-10.8)
[2017-07-04 08:00] VITALS: BP 134/44
--- NOTE | 2017-07-04 08:03 | Cons- CRCU ---
Jose Juan Bocanegra 07/04/17 0802: General Information and HPI Consulting Request Date of Consult: 07/04/17 Requested By: Dr. Peter Reason for Consult: Altered mental status Lethargy Hypotension Bradycardia Hypoglycemia Source of Information: family, old records Exam Limitations: unable to give history, patient's age, not alert/orientated, clinical condition, confusion, poor historian History of Present Illness: This is a 86-year-old female with past medical history significant for right- sided MCA infarct, status post CVA, dementia since 2016, left-sided deficits, bedbound and wheelchair bound, atrial fibrillation on anticoagulation ELIQUS 2.5 twice daily, hypertension, hyperlipidemia, history of varicose veins, remote history of pulmonary embolism, stop Coumadin 3 years ago, GERD, parsons diverticulosis coli left more than right, status post PEG tube placement in 2016 after CVA,TUBULAR ADENOMA, right renal artery stenosis, back pain, osteoarthritis, osteopenia, depression, anxiety, obesity, remote history of diabetes mellitus not on insulin, recurrent admissions to the hospital for diarrhea, dehydration was brought in by ambulance after she was found altered, unresponsive on 07/03/2017. According to the daughter, she was recently admitted to [facility] for lethargy, altered mental status, hypotension, diarrhea. She was given no antibiotics during her hospital stay. She was discharged from [facility] on 07/01 and since then she continued to have diarrhea/dehydration. Patient was found to be very lethargic yesterday, unable to arouse, therefore brought into the emergency room for further evaluation. When she was in the emergency room she has 4 more episodes of diarrhea which are guaiac-positive. Patient blood pressure was around 80/40. She was found to have hypoglycemic, required 2A of D50 and she was started on D5 fluids. She was also bradycardic up to 30s. She was unarousable and she has pinpoint pupils. As per daughter patient is very lethargic since discharge from [facility] , found to have failure to thrive, persistent diarrhea, dehydration. Denies any nausea, vomiting. However patient reports abdominal pain. Denies any changes in urinary habits. She continues to have persistent diarrhea, no blood in stool. Patient has long-standing history of gastrointestinal issues, worked up by Dr. Belcher and Dr. Buckner in the past. Patient underwent upper endoscopy in August 2016 which was normal. she also underwent colonoscopy in now but 2017 which showed pandiverticulosis, internal and external hemorrhoids. Patient has a cardiac history of A. fib, hypertension, hyperlipidemia and pulmonary embolism, most recent echocardiogram in 2017 showed moderate left ventricular hypertrophy, some degree of impaired LV relaxation and ejection fraction of 65%. Allergies/Medications Allergies: Coded Allergies: NO KNOWN ALLERGIES (05/29/15) Home Med List: Acetaminophen 325 MG TABLET 2 TAB PO TID PAIN (Reported) Apixaban (Eliquis) 2.5 MG TABLET 1 TAB PO BID BLOOD THINNR (Reported) Atorvastatin Calcium 80 MG TABLET 1 TAB PO 1700 HLD (Reported) Carvedilol 3.125 MG TABLET 1 TAB PO BID HEART (Reported) Ergocalciferol (Vitamin D2) (Vitamin D2) 50,000 UNIT CAPSULE 1 CAP PO QFRI SUPPLEMENT (Reported) Ferrous Sulfate (IRON) 325 MG (65 MG IRON) TABLET 1 TAB PO DAILY SUPPLEMENT ( Reported) Ferrous Sulfate 300 MG (60 MG IRON)/5 ML LIQUID 7.5 ML PO QAM SUPPLEMENT ( Reported) Hydralazine HCl 50 MG TABLET 1 TAB PO TID HEART (Reported) Lactobacillus Acidophilus (Probiotic) 10 BILLION CELL CAPSULE 1 CAP PO DAILY PROBIOTIC (Reported) Losartan Potassium 50 MG TABLET 1 TAB PO QPM HEART/BP (Reported) Multivitamin (Multivitamins) 1 EACH CAPSULE 1 TAB PO DAILY SUPPLEMENT ( Reported) Pantoprazole Sodium 40 MG TABLET.DR 1 TAB PO DAILY GI (Reported) Sertraline HCl 25 MG TABLET 2 TAB PO DAILY MENTAL HEALTH (Reported) Vitamin B Complex (Super B-50 Complex) 1 EACH CAPSULE 1 CAP PO DAILY SUPPLEMENT (Reported) Current Medications: Current Medications Sig/Renee Start time Last Medication Dose Route Stop Time Status Admin Apixaban 2.5 MG BID 07/04 0900 CAN PO Atorvastatin Calcium 80 MG 1700 07/04 1700 CAN PO Dextrose 25 GM ONCE ONE 07/03 2030 DC 07/03 IV 07/03 Dextrose 25 GM ONCE ONE 07/03 1700 DC 07/03 IV 07/03 170 1703 Dextrose 25 GM ONCE ONE 07/03 1600 DC 07/03 IV 07/03 1601 1600 Dextrose 25 GM ONCE ONE 07/03 1315 DC 07/03 IV 07/03 1316 1259 Dextrose 0 .STK-MED ONE 07/03 1305 DC IV Dextrose 0 .STK-MED ONE 07/03 1303 DC IV Dextrose/Sodium 1,000 ML Q10H 07/03 2100 AC 07/04 Chloride IV 0449 Dextrose/Sodium 1,000 ML ONCE ONE 07/03 1600 DC 07/03 Chloride IV 07/04 0519 1703 Magnesium Sulfate 1 GM .STK-MED ONE 07/03 2021 DC IM 07/03 2022 Magnesium Sulfate 1 GM Q2H 07/03 1830 DC 07/03 Dextrose/Water 100 ML IV 07/03 2229 2130 Naloxone HCl 0 .STK-MED ONE 07/03 1800 DC .ROUTE Naloxone HCl 0.4 MG ONCE ONE 07/03 1745 DC 07/03 SC 07/03 1746 1757 Pantoprazole Sodium 40 MG BID 07/04 0900 AC 07/04 IV 0855 Potassium Chloride 10 MEQ Q1H 07/04 0830 DC 07/04 IV 07/04 0931 0933 Potassium Chloride 10 MEQ Q1H 07/03 1715 DC 07/03 IV 07/03 1816 2022 Sodium Chloride 1,000 ML BOLUS ONE 07/03 1815 DC 07/03 IV 07/03 1914 1825 Sodium Chloride 1,000 ML BOLUS ONE 07/03 1315 DC 07/03 IV 07/03 1414 1356 Review of Systems Review of Systems Constitutional: Reports: see HPI. EENTM: Denies: blurred vision, double vision. Cardiovascular: Denies: chest pain, edema, orthopena, palpitations, peripheral edema, syncope. Respiratory: Reports: short of breath. Denies: cough, hemoptysis, orthopnea. GI: Reports: abdominal pain, diarrhea, changes in stool. Denies: melena, nausea, vomiting, steatorrhea. Genitourinary: Denies: discharge, dysuria, frequency. Past History Travel History Traveled to [place] past 21 day No Medical History Blood Transfusion Hx: Yes Neurological: CVA, dementia EENT: cataracts, epistaxis Cardiovascular: AFIB, hypertension, hyperlipidemia, varicose veins Respiratory: pulmonary embolism (remote), pulmonary edema Gastrointestinal: constipation, ACID REFLUX Post PEG pandiverticulosis coli, L> R Hx colon adenoma Hepatic: NONE Renal: RIGHT RENAL ARTERY STENOSIS Musculoskeletal: chronic back pain, disk herniation, osteoarthritis, Back surgery osteopenia Psychiatric: depression (post CVA) Endocrine: obesity, vitamin D deficiency, DM Blood Disorders: anemia Cancer(s): NONE MANAGER GAS/Reproductive: fibroid, UTERINE FIBROIDS Surgical History Surgical History: BACK SURGERY Family History Relations & Conditions If Any: BROTHER (unknown). MOTHER (MVA). , Age 30-40; Cause: MVA (motor vehicle accident). FATHER, , Age 30-40; Cause: MVA (motor vehicle accident). Psychosocial History Where Do You Live? Home Who Do You Live With? spouse ( & dtr, Nhi Landaverde), child Services at Home: Home Health Aide, Nursing Primary Language: Arabic, Maltese Smoking Status: Never Smoked ETOH Use: denies use Illicit Drug Use: denies illicit drug use Living Will? no Power of Ranger Aide/HCP? no Functional Ability ADLs Needs Assist: dressing, eating, toileting, bathing. Ambulation: non-ambulatory IADLs Needs Assist: shopping, housework, finances, food prep, telephone, transportation, medication admin. Exam & Diagnostic Data Last 24 Hrs of Vital Signs/I&O Vital Signs Date Time Temp Pulse Resp B/P B/P Pulse O2 O2 Flow FiO2 Mean Ox Delivery Rate 07/04 1209 94 Room Air 07/04 0800 98 Nasal 2.0L Cannula 07/04 0800 97.8 50 18 134/44 98 Nasal 2.0L Cannula 07/04 0400 100 Nasal 2.0L Cannula 07/04 0000 99 Nasal 2.0L Cannula 07/04 1999 99 Nasal 2.0L Cannula 07/04 1999 97.5 45 12 132/68 99 Nasal 2.0L Cannula 07/03 1927 138/62 07/03 1916 97.3 45 12 136/72 100 Nasal 2.0L Cannula 07/03 1745 97.2 36 12 84/50 100 Nasal 2.0L Cannula 07/03 1608 97.4 43 16 139/66 100 Nasal 2.0L Cannula 07/03 1407 97.1 07/03 1308 91 Room Air 07/03 1301 94.1 41 14 107/53 92 Room Air Intake & Output 07/04 1600 07/04 0800 07/04 0000 Intake Total 1049 3441 Output Total 100 50 Balance 949 3391 Intake, Blood 350 Product Intake, IV 699 3441 Number 1 2 Bowel Movements Output, Urine 100 50 Patient 69.116 kg Weight Weight Bed scale Measurement Method Physical Exam General Appearance: well developed/nourished, no apparent distress, alert, awake , mild distress Other Physical Findings: Skin No Rashes, No Breakdown, No Significant Lesion HEENT Atraumatic, PERRLA, EOMI, Mucous Membr dry/dehydrated Neck Supple, No JVD Cardiovascular Regular Rate, Normal S1, Normal S2, No Murmurs Lungs Clear to Auscultation, Normal Air Movement Abdomen Normal Bowel Sounds, Soft, mid abd Tenderness, No Hepatospenomegaly, No Masses, PEG tube in place, clean Neurological unable to assess other than complete inability to move left arm, good strength right side Extremities No Clubbing, No Cyanosis, No Edema, Normal Pulses, No Tenderness/ Swelling Vascular Normal Pulses, Pulses Symmetrical Last 48 Hrs of Labs/Klaus: Laboratory Tests 07/04/17 0600: Anion Gap 8, Estimated GFR 52 L, Glucose 149 H, Calcium 7.8 L, Phosphorus 2.9 , Magnesium 2.2, Total Bilirubin 1.0, AST 17, ALT 24, Albumin 2.2 L, CBC w Diff MAN DIFF ORDERED, RBC 3.41 L, MCV 90.6, MCH 30.7, MCHC 33.9, RDW 15.9 H, MPV 11.0 H, Gran % 59.1, Lymphocytes % 31.1, Monocytes % 9.5 H, Eosinophils % 0.3, Basophils % 0, Absolute Granulocytes 3.4, Segmented Neutrophils 55, Band Neutrophils 1, Absolute Lymphocytes 1.8, Lymphocytes 40, Monocytes 4, Absolute Monocytes 0.5, Absolute Eosinophils 0, Absolute Basophils 0, Platelet Estimate ADEQUATE, Polychromasia 1+, Poikilocytosis 3+, Ovalocytes 1+, Jenkins Cells 2+, Elliptocytes FEW, Fld Total RBCs Counted 100 07/04/17 0210: CBC w Diff NO MAN DIFF REQ, RBC 3.51 L, MCV 90.8, MCH 30.7, MCHC 33.8, RDW 14.9 H, MPV 11.2 H, Gran % 60.7, Lymphocytes % 27.5, Monocytes % 11.4 H, Eosinophils % 0.1, Basophils % 0.3, Absolute Granulocytes 4.4, Absolute Lymphocytes 2.0, Absolute Monocytes 0.8 H, Absolute Eosinophils 0, Absolute Basophils 0 07/04/17 0200: Hemoglobin A1c 5.6 07/03/17 2330: Anion Gap 10, Estimated GFR 47 L, Glucose 130 H, Calcium 7.8 L, Phosphorus 3.0, Magnesium 2.2, Total Bilirubin 1.2, AST 20, ALT 23, Troponin I < 0.01, Albumin 2.2 L 07/03/17 2200: Sodium Cancelled, Potassium Cancelled, Chloride Cancelled, Carbon Dioxide Cancelled, Anion Gap Cancelled, BUN Cancelled, Creatinine Cancelled, Glucose Cancelled, Calcium Cancelled, Phosphorus Cancelled, Magnesium Cancelled, Total Bilirubin Cancelled, AST Cancelled, ALT Cancelled, Albumin Cancelled, CBC w Diff Cancelled, WBC Cancelled, RBC Cancelled, Hgb Cancelled, Hct Cancelled, MCV Cancelled, MCH Cancelled, MCHC Cancelled, RDW Cancelled, Plt Count Cancelled, MPV Cancelled 07/03/17 1602: Lactic Acid Cancelled 07/03/17 1555: Urine Color YEL, Urine Clarity CLDY H, Urine pH 8.5 H, Ur Specific [place] 1.020, Urine Protein 100 H, Urine Ketones NEG, Urine Nitrite NEG, Urine Bilirubin NEG, Urine Urobilinogen 0.2, Ur Leukocyte Esterase MOD H, Ur Microscopic SEDIMENT EXAMINED, Urine RBC 1-3, Urine WBC > 75 H, Ur Epithelial Cells RARE, Urine Bacteria PACKD H, Urine Hemoglobin TRACE-INTACT, Urine Glucose NEG 07/03/17 1550: pH 7.30 *L, pCO2 32 L, pO2 107 H, HCO3 15 L, ABG O2 Sat (Measured) 97.0, P-50 (Temp Corrected) N, Carboxyhemoglobin 0.2 L, O2 Concentration % 2.5L, Temperature 97.1, O2 Delivery Method NC, Phlebotomy Draw Site RIGHT RADIAL 07/03/17 1355: Urine Opiates Screen < 100, Methadone Screen < 40, Barbiturate Screen < 60, Ur Phencyclidine Scrn < 6.00, Amphetamines Screen 232, U Benzodiazepines Scrn < 85, Urine Cocaine Screen < 50, Urine Cannabis Screen < 5.00 07/03/17 1315: Anion Gap 7, Estimated GFR 42 L, BUN/Creatinine Ratio 22.5, Glucose 185 H, Lactic Acid 1.5, Calcium 7.8 L, Phosphorus 3.0, Magnesium 1.8, Total Bilirubin 0.6, AST 17, ALT 18, Alkaline Phosphatase 65, Troponin I < 0.01, Pro-B- Natriuretic Pept 1900 H, Total Protein 4.1 L, Albumin 1.9 L, Globulin 2.2, Albumin/Globulin Ratio 0.9 L, Free T4 1.62, Total T3 0.71 L, TSH &T3 &Free T4 Intrp 2.410, PT 15.1 H, INR 1.38 H, APTT 31, CBC w Diff NO MAN DIFF REQ, RBC 2.36 L, MCV 91.4, MCH 30.9, MCHC 33.8, RDW 15.9 H, MPV 11.8 H, Gran % 61.3, Lymphocytes % 34.2, Monocytes % 4.2, Eosinophils % 0.1, Basophils % 0.2, Absolute Granulocytes 3.0, Absolute Lymphocytes 1.7, Absolute Monocytes 0.2, Absolute Eosinophils 0, Absolute Basophils 0 07/03/17 1302: Lyme Disease Antibody Pending Assessment/Plan CRCU Impression/Plan: This is a 86-year-old female with past medical history significant for right- sided MCA infarct, status post CVA, dementia since 2016, left-sided deficits, bedbound and wheelchair bound, atrial fibrillation on anticoagulation ELIQUS 2.5 twice daily, hypertension, hyperlipidemia, history of varicose veins, remote history of pulmonary embolism, stop Coumadin 3 years ago, GERD, parsons diverticulosis coli left more than right, status post PEG tube placement in 2016 after CVA,TUBULAR ADENOMA, right renal artery stenosis, back pain, osteoarthritis, osteopenia, depression, anxiety, obesity, remote history of diabetes mellitus not on insulin, recurrent admissions to the hospital for diarrhea, dehydration was brought in by ambulance after she was found altered, unresponsive on 07/03/2017. Vitals at the time of presentation Afebrile, heart rate varying between 36-46, blood pressure 84/50 improved to 107 /53 after normal saline bolus, saturating at 100 on 2 L. Pertinent labs WBC 5.7, hemoglobin 10.5, hematocrit 30, platelets 125 Sodium 143, potassium 3.5, BUN 22 and creatinine 1, glucose 149 ABG 7.30, 15, 32 urinalysis showed moderate leukocyte esterase, protein 100, packed bacteria. CT head showed evidence of her old right MCA infarct,urinalysis showed moderate leukocyte esterase, protein 100, packed bacteria. CT abdomen and pelvis showed a large volume of stool with stercoral colitis chest x-ray showed cardiomegaly. Altered mental status She was brought in by ambulance to the ED for altered mental status, unresponsiveness, failure to thrive, dehydration, persistent black diarrhea. According to the daughter, she was recently admitted to [facility] for lethargy, altered mental status, hypotension, diarrhea. She was given no antibiotics during her hospital stay. She was discharged from [place] on 07/01 and since then she continued to have diarrhea/dehydration. * Altered Mental status most likely from diarrhea/dehydration versus bradycardia versus hypoglycemia versus hypotension from hypovolemia versus urinary tract infection versus abdominal infection. * ICU admit for close monitoring * Monitor vitals every shift * Maintain SBP above 90-100 * Avoid adequate hydration * Patient was found to be hypoglycemic at the time of admission, received 2 amp pulse of D50 after which blood sugars improved * Monitor blood sugars closely * Patient was bradycardic heart rate ranging between 40-45, pacer pads at bedside. Sinus Bradycardia Patient was in bradycardia at the time of admission, heart rate ranging in between 35-45. Troponin was negative. Overnight telemetry tracings showed sinus bradycardia. Off note patient has history of paroxysmal atrial fibrillation taking eliqus at home. * Troponin was negative. * Continuous telemetry monitoring for now * Patient is in sinus bradycardia RATE 40-47 * held her home medication carvedilol given bradycardia * Patient doesn't need permanent pacemaker * We'll get an echocardiogram Hypotension Patient blood pressure was 80/50 at the time of admission. Improved with 2 L of normal saline bolus. SBP varying between 90-100 * Hypotension most likely from diarrhea and hypovolemia, dehydration * Will hold her outpatient antihypertensives hydralazine, losartan, carvedilol * Adequate hydration * Follow-up echocardiogram * Dry Cell Battery Assembler on board * Head Of Partner Development on board Acute kidney injury Creatinine 1.2 at the time of admission. Most likely prerenal from diarrhea and dehydration Received gentle hydration Creatinine improved to 1 Asymptomatic UTI urinalysis showed moderate leukocyte esterase, protein 100, packed bacteria. Patient couldn't provide any complaints. However urine cultures positive for gram-negative rods. her positive urine culture likely represents asymptomatic bacteriuria, but she is unable to provide a reliable history and, as she was hypothermic and hypotensive on admission, can continue empiric treatment for this for now. * Continue to monitor for fever, leukocytosis * Started IV ceftriaxone 1000mg day 1 * Follow-up FINAL urine cultures/sensitivities Nonionic anionic gap metabolic acidosis Patient has metabolic acidosis, pH 7.30, bicarbonate 15, no anionic gap Most likely from diarrhea upper GI bleed/melena Patient presented with persistent ongoing diarrhea, black colored stools. She has 4 more episodes of diarrhea in the emergency room which are guaiac-positive. patient has long-standing history of gastrointestinal issues, worked up by Dr. Belcher and Dr. Buckner in the past. Patient underwent upper endoscopy in August 2016 which was normal. she also underwent colonoscopy in now but 2016 which showed pandiverticulosis, internal and external hemorrhoids. * Upper GI bleed with dark stools-unknown source * ICU admit * Monitor vitals every shift * Type and screen done * 2 large IV bore needles of the time * Gentle hydration * Received 2 units of blood transfusion * Hemoglobin improved from 7.3-10.5 after 2 units of transfusion * Goal hemoglobin greater than 7 * Monitor CBC every 12hrs * Continue IV Protonix 40 twice a day * Please hold eliqus given GI bleed * Guaiac all the stools * Avoid NSAIDs * Press Machine Feeder on board * Planning to get the pill cam scan study as outpatient to check for the source of GI bleed as endoscopy and colonoscopy were unrevealing profuse diarrhea and Stercoral colitis she has been having profuse diarrhea ongoing for months, on and off. CT abdomen showed large volume of stool within the rectum and circumferential thickening within the rectal mucosa indicating the likelihood of underlying stercoral colitis. Multiple admissions in the past for constipation, stercoral colitis, fecal impaction. * Patient is oozing from her fecal impaction/Stercoral colitis * f/u stool Cultures/sensitivities * stool C. difficile f/u * Follow-up gastroenterology recommendations Blood cultures one bottle positive for gram-positive cocci in clusters The significance of the positive blood culture is unclear. This may represent a contaminant, as it is only in 1 bottle and however, as it grew within 24 hours and she was recently hospitalized, the possibility that this represents a true infection, for example Staph aureus, must be considered, though she has no obvious focus of infection. * Patient was given 1 dose of vancomycin 07/04/2017 * Follow up final blood cultures and urine cultures * Further dosing of vancomycin based on above blood culture results * If the blood culture proves to be coag negative Staph she should not require further treatment for this. Hypokalemia Potassium 3.3, replete to 4.0 Keep magnesium at 2.0 atrial fibrillation now in sinus rhythm hold eliqus given GI bleed Hypertensioncarvedilol, hydralazine, losartan please hold them given hypotension Hyperlipidemia patient takes Lipitor at home however patient family refused to continue Lipitor GERD continue IV Protonix DVT prophylaxis alps given GI bleed Patient is full code Patient failed swallow evaluation 07/04/2017 -Nothing by mouth PEG tube in place Consult Acknowledgment - Thank you for your consult request. Ruy Menjivar MD 07/04/17 1156: Assessment/Plan CRCU Other Findings/Comments: Ruy José M.D. have examined this patient, reviewed available EMR data, personally reviewed images, discussed with resident/PA/AUTOMOTIVE AIRCONDITIONING MECHANIC, discussed management plan with housestaff and nursing staff, discussed managment plan all of healthcare providers, discussed management plan with patient and/or family, agreed with resident/PA/AUTOMOTIVE AIRCONDITIONING MECHANIC. The past history and parts of the chart have been autopopulated. Impression 86 year old woman * sinus bradycardia - recently started on coreg * anemia * hypotension likely secondary to hypovolemia due to diarrhea/colitis * gram positive cocci in clusters in blood culture 07/03 Plan -f/u all cultures -obtain echocardiogram -begin vancomycin, ID consultation will be obtained -hold beta blockade -anemia workup and monitoring, hold eliquis for now, GI consultation is appreciated -cardiology consultation is appreciated DVT prophylaxis at all times TTS 40 min Consult Acknowledgment - Thank you for your consult request.
--- NOTE | 2017-07-04 11:09 | Cons- Cardiology ---
General Information and HPI Consulting Request Date of Consult: 07/04/17 Requested By: Estella Tsai MD Reason for Consult: Bradycardia Source of Information: old records Exam Limitations: dementia, poor historian History of Present Illness: This is an 86-year-old female with a past medical history of paroxysmal atrial fibrillation on Eliquis, prior CVA, dementia, hypertension, hyperlipidemia, remote pulmonary emboli, diverticulosis, diabetes, anemia, and uterine fibroids. The patient is a limited historian in the HPI was obtained from the medical record. Per the medical record she was brought to the ER after the visiting nurses found her poorly responsive. She apparently had a recent admission to [facility] for diarrhea and dehydration. Per EMS she was hypotensive upon initial evaluation. Per the record she has been continuing to have diarrhea since discharge. She was also found to be very anemic on presentation and did receive transfusion. She was also noted to be bradycardic. Allergies/Medications Allergies: Coded Allergies: NO KNOWN ALLERGIES (05/29/15) Home Med List: Acetaminophen 325 MG TABLET 2 TAB PO TID PAIN (Reported) Apixaban (Eliquis) 2.5 MG TABLET 1 TAB PO BID BLOOD THINNR (Reported) Atorvastatin Calcium 80 MG TABLET 1 TAB PO 1700 HLD (Reported) Carvedilol 3.125 MG TABLET 1 TAB PO BID HEART (Reported) Ergocalciferol (Vitamin D2) (Vitamin D2) 50,000 UNIT CAPSULE 1 CAP PO QFRI SUPPLEMENT (Reported) Ferrous Sulfate (IRON) 325 MG (65 MG IRON) TABLET 1 TAB PO DAILY SUPPLEMENT ( Reported) Ferrous Sulfate 300 MG (60 MG IRON)/5 ML LIQUID 7.5 ML PO QAM SUPPLEMENT ( Reported) Hydralazine HCl 50 MG TABLET 1 TAB PO TID HEART (Reported) Lactobacillus Acidophilus (Probiotic) 10 BILLION CELL CAPSULE 1 CAP PO DAILY PROBIOTIC (Reported) Losartan Potassium 50 MG TABLET 1 TAB PO QPM HEART/BP (Reported) Multivitamin (Multivitamins) 1 EACH CAPSULE 1 TAB PO DAILY SUPPLEMENT ( Reported) Pantoprazole Sodium 40 MG TABLET.DR 1 TAB PO DAILY GI (Reported) Sertraline HCl 25 MG TABLET 2 TAB PO DAILY MENTAL HEALTH (Reported) Vitamin B Complex (Super B-50 Complex) 1 EACH CAPSULE 1 CAP PO DAILY SUPPLEMENT (Reported) Current Medications: Current Medications Sig/Renee Start time Last Medication Dose Route Stop Time Status Admin Apixaban 2.5 MG BID 07/04 0900 CAN PO Atorvastatin Calcium 80 MG 1700 07/04 1700 AC PO Dextrose 25 GM ONCE ONE 07/03 2030 DC 07/03 IV 07/03 203 2015 Dextrose 25 GM ONCE ONE 07/03 1700 DC 07/03 IV 07/03 1701 1703 Dextrose 25 GM ONCE ONE 07/03 1600 DC 07/03 IV 07/03 1601 1600 Dextrose 25 GM ONCE ONE 07/03 1315 DC 07/03 IV 07/03 1316 1259 Dextrose 0 .STK-MED ONE 07/03 1305 DC IV Dextrose 0 .STK-MED ONE 07/03 1303 DC IV Dextrose/Sodium 1,000 ML Q10H 07/03 2100 AC 07/04 Chloride IV 0449 Dextrose/Sodium 1,000 ML ONCE ONE 07/03 1600 DC 07/03 Chloride IV 07/04 0519 1703 Magnesium Sulfate 1 GM .STK-MED ONE 07/03 2021 DC IM 07/03 2022 Magnesium Sulfate 1 GM Q2H 07/03 1830 DC 07/03 Dextrose/Water 100 ML IV 07/03 2229 2130 Naloxone HCl 0 .STK-MED ONE 07/03 1800 DC .ROUTE Naloxone HCl 0.4 MG ONCE ONE 07/03 1745 DC 07/03 SC 07/03 1746 1757 Pantoprazole Sodium 40 MG BID 07/04 0900 AC 07/04 IV 0855 Potassium Chloride 10 MEQ Q1H 07/04 0830 DC 07/04 IV 07/04 0931 0933 Potassium Chloride 10 MEQ Q1H 07/03 1715 DC 07/03 IV 07/03 1816 2022 Sodium Chloride 1,000 ML BOLUS ONE 07/03 1815 DC 07/03 IV 07/03 1914 1825 Sodium Chloride 1,000 ML BOLUS ONE 07/03 1315 DC 07/03 IV 07/03 1414 1356 Review of Systems Review of Systems: Unable to obtain as the patient is a limited historian Past History Travel History Traveled to [place] past 21 day No Medical History Blood Transfusion Hx: Yes Neurological: CVA, dementia EENT: cataracts, epistaxis Cardiovascular: AFIB, hypertension, hyperlipidemia, varicose veins Respiratory: pulmonary embolism (remote), pulmonary edema Gastrointestinal: constipation, ACID REFLUX Post PEG pandiverticulosis coli, L> R Hx colon adenoma Hepatic: NONE Renal: RIGHT RENAL ARTERY STENOSIS Musculoskeletal: chronic back pain, disk herniation, osteoarthritis, Back surgery osteopenia Psychiatric: depression (post CVA) Endocrine: obesity, vitamin D deficiency, DM Blood Disorders: anemia Cancer(s): NONE CLUB CONCIERGE/Reproductive: fibroid, UTERINE FIBROIDS Surgical History Surgical History: BACK SURGERY Family History Relations & Conditions If Any: BROTHER (unknown). MOTHER (MVA). , Age 30-40; Cause: MVA (motor vehicle accident). FATHER, , Age 30-40; Cause: MVA (motor vehicle accident). Psychosocial History Where Do You Live? Home Who Do You Live With? spouse ( & dtr, Nhi Landaverde), child Services at Home: Home Health Aide, Nursing Primary Language: Portuguese, Polish Smoking Status: Never Smoked ETOH Use: denies use Illicit Drug Use: denies illicit drug use Living Will? no Power of Ecosystem Ecology Professor/HCP? no Functional Ability ADLs Needs Assist: dressing, eating, toileting, bathing. Ambulation: non-ambulatory IADLs Needs Assist: shopping, housework, finances, food prep, telephone, transportation, medication admin. Exam & Diagnostic Data Vital Signs and I&O Vital Signs Date Time Temp Pulse Resp B/P B/P Pulse O2 O2 Flow FiO2 Mean Ox Delivery Rate 07/04 0800 98 Nasal 2.0L Cannula 07/04 0800 97.8 50 18 134/44 98 Nasal 2.0L Cannula 07/04 0400 100 Nasal 2.0L Cannula 07/04 0000 99 Nasal 2.0L Cannula 07/04 1999 99 Nasal 2.0L Cannula 07/04 1999 97.5 45 12 132/68 99 Nasal 2.0L Cannula 07/03 1927 138/62 07/03 1916 97.3 45 12 136/72 100 Nasal 2.0L Cannula 07/03 1745 97.2 36 12 84/50 100 Nasal 2.0L Cannula 07/03 1608 97.4 43 16 139/66 100 Nasal 2.0L Cannula 07/03 1407 97.1 07/03 1308 91 Room Air 07/03 1301 94.1 41 14 107/53 92 Room Air Intake & Output 07/04 1600 07/04 0800 07/04 0000 07/03 1600 07/03 0800 07/03 0000 Intake Total 1049 3441 Output Total 100 50 Balance 949 3391 Intake, Blood 350 Product Intake, IV 699 4027 Number 1 2 Bowel Movements Output, Urine 100 50 Patient 152 lb Weight Weight Bed scale Measurement Method Physical Exam: General: no apparent distress. Confused. Eyes: No obvious scleral icterus. HEENT: No jugular venous distention or abnormal jugular venous pulsations. Cardiovascular: Normal intensity S1/S2. Regular bradycardia Respiratory: Lungs clear to auscultation bilaterally. Abdomen: no guarding or rebound tenderness. Musculoskeletal: No clubbing or cyanosis noted; no edema Skin: Warm Lymph: No gross lymphadenopathy. Labs/Klaus Results: Laboratory Tests 07/04 07/04 0600 0210 Chemistry Sodium (137 - 145 mmol/L) 143 Potassium (3.5 - 5.1 mmol/L) 3.5 Chloride (98 - 107 mmol/L) 120 H Carbon Dioxide (22 - 30 mmol/L) 16 L Anion Gap (5 - 16) 8 BUN (7 - 17 mg/dL) 22 H Creatinine (0.5 - 1.0 mg/dL) 1.0 Estimated GFR (>60 ml/min) 52 L Glucose (65 - 99 mg/dL) 149 H Calcium (8.4 - 10.2 mg/dL) 7.8 L Phosphorus (2.5 - 4.5 mg/dL) 2.9 Magnesium (1.6 - 2.3 mg/dL) 2.2 Total Bilirubin (0.2 - 1.3 mg/dL) 1.0 AST (14 - 36 U/L) 17 ALT (9 - 52 U/L) 24 Albumin (3.5 - 5.0 g/dL) 2.2 L Hematology CBC w Diff MAN DIFF ORDERED NO MAN DIFF REQ WBC (4.8 - 10.8 /CUMM) 5.7 7.2 RBC (4.20 - 5.40 /CUMM) 3.41 L 3.51 L Hgb (12.0 - 16.0 G/DL) 10.5 L 10.8 L Hct (37 - 47 %) 30.9 L 31.9 L MCV (81.0 - 99.0 FL) 90.6 90.8 MCH (27.0 - 31.0 PG) 30.7 30.7 MCHC (33.0 - 37.0 G/DL) 33.9 33.8 RDW (11.5 - 14.5 %) 15.9 H 14.9 H Plt Count (130 - 400 /CUMM) 125 L 113 L MPV (7.4 - 10.4 FL) 11.0 H 11.2 H Gran % (42.2 - 75.2 %) 59.1 60.7 Lymphocytes % (20.5 - 51.1 %) 31.1 27.5 Monocytes % (1.7 - 9.3 %) 9.5 H 11.4 H Eosinophils % (0 - 5 %) 0.3 0.1 Basophils % (0.0 - 2.0 %) 0 0.3 Absolute Granulocytes (1.4 - 6.5 /CUMM) 3.4 4.4 Segmented Neutrophils (42.2 - 75.2 %) 55 Band Neutrophils (0.0 - 5.0 %) 1 Absolute Lymphocytes (1.2 - 3.4 /CUMM) 1.8 2.0 Lymphocytes (20.5 - 51.1 %) 40 Monocytes (1.7 - 9.3 %) 4 Absolute Monocytes (0.10 - 0.60 /CUMM) 0.5 0.8 H Absolute Eosinophils (0.0 - 0.7 /CUMM) 0 0 Absolute Basophils (0.0 - 0.2 /CUMM) 0 0 Platelet Estimate (ADEQUATE) ADEQUATE Polychromasia 1+ Poikilocytosis 3+ Ovalocytes 1+ Sofia Cells 2+ Elliptocytes FEW Other Body Source Fld Total RBCs Counted (%) 100 07/04 07/03 07/03 07/03 0200 2330 2200 1602 Chemistry Sodium (137 - 145 mmol/L) 144 Cancelled Potassium (3.5 - 5.1 mmol/L) 4.0 Cancelled Chloride (98 - 107 mmol/L) 119 H Cancelled Carbon Dioxide (22 - 30 mmol/L) 16 L Cancelled Anion Gap (5 - 16) 10 Cancelled BUN (7 - 17 mg/dL) 25 H Cancelled Creatinine (0.5 - 1.0 mg/dL) 1.1 H Cancelled Estimated GFR (>60 ml/min) 47 L Glucose (65 - 99 mg/dL) 130 H Cancelled Hemoglobin A1c (4.2 - 5.8 %) 5.6 Lactic Acid Cancelled Calcium (8.4 - 10.2 mg/dL) 7.8 L Cancelled Phosphorus (2.5 - 4.5 mg/dL) 3.0 Cancelled Magnesium (1.6 - 2.3 mg/dL) 2.2 Cancelled Total Bilirubin (0.2 - 1.3 mg/dL) 1.2 Cancelled AST (14 - 36 U/L) 20 Cancelled ALT (9 - 52 U/L) 23 Cancelled Troponin I (< 0.11 ng/ml) < 0.01 Albumin (3.5 - 5.0 g/dL) 2.2 L Cancelled Hematology CBC w Diff Cancelled WBC Cancelled RBC Cancelled Hgb Cancelled Hct Cancelled MCV Cancelled MCH Cancelled MCHC Cancelled RDW Cancelled Plt Count Cancelled MPV Cancelled 07/03 07/03 1555 1550 Blood Gas pH (7.35 - 7.45 PH) 7.30 *L pCO2 (35 - 45 TORR) 32 L pO2 (80 - 100 TORR) 107 H HCO3 (21 - 28 MEQ/L) 15 L ABG O2 Sat (Measured) (>96.0 %) 97.0 P-50 (Temp Corrected) N Carboxyhemoglobin (1.5 - 5.0 %) 0.2 L O2 Concentration % 2.5L Temperature (97.0 - 100.0 FARH) 97.1 O2 Delivery Method NC Miscellaneous Phlebotomy Draw Site RIGHT RADIAL Urines Urine Color (YEL,AMB,STR) YEL Urine Clarity (CLEAR) CLDY H Urine pH (5.0 - 8.0) 8.5 H Ur Specific [place] (1.001 - 1.035) 1.020 Urine Protein (NEG,<30 MG/DL) 100 H Urine Ketones (NEG) NEG Urine Nitrite (NEG) NEG Urine Bilirubin (NEG) NEG Urine Urobilinogen (0.1 - 1.0 EU/dl) 0.2 Ur Leukocyte Esterase (NEG) MOD H Ur Microscopic SEDIMENT EXAMINED Urine RBC (0 - 5 /HPF) 1-3 Urine WBC (0 - 2 /HPF) > 75 H Ur Epithelial Cells (NONE,FEW) RARE Urine Bacteria (NEG/NONE) PACKD H Urine Hemoglobin (NEG) TRACE-INTACT Urine Glucose (N MG/DL) NEG 07/03 07/03 07/03 1355 1315 1302 Chemistry Sodium (137 - 145 mmol/L) 140 Potassium (3.5 - 5.1 mmol/L) 3.1 L Chloride (98 - 107 mmol/L) 115 H Carbon Dioxide (22 - 30 mmol/L) 18 L Anion Gap (5 - 16) 7 BUN (7 - 17 mg/dL) 27 H Creatinine (0.5 - 1.0 mg/dL) 1.2 H Estimated GFR (>60 ml/min) 42 L BUN/Creatinine Ratio (7 - 25 %) 22.5 Glucose (65 - 99 mg/dL) 185 H Lactic Acid (0.7 - 2.1 mmol/L) 1.5 Calcium (8.4 - 10.2 mg/dL) 7.8 L Phosphorus (2.5 - 4.5 mg/dL) 3.0 Magnesium (1.6 - 2.3 mg/dL) 1.8 Total Bilirubin (0.2 - 1.3 mg/dL) 0.6 AST (14 - 36 U/L) 17 ALT (9 - 52 U/L) 18 Alkaline Phosphatase (<127 U/L) 65 Troponin I (< 0.11 ng/ml) < 0.01 Eju-T-Kzjtvfjoflo Pept (<125 pg/mL) 1900 H Total Protein (6.3 - 8.2 g/dL) 4.1 L Albumin (3.5 - 5.0 g/dL) 1.9 L Globulin (1.9 - 4.2 gm/dL) 2.2 Albumin/Globulin Ratio (1.1 - 2.2 %) 0.9 L Free T4 (0.85 - 1.93 ng/dL) 1.62 Total T3 (0.97 - 1.69 ng/mL) 0.71 L TSH &T3 &Free T4 Intrp (0.270 - 4.20 uIU/mL) 2.410 Coagulation PT (9.4 - 12.5 SEC) 15.1 H INR (0.90 - 1.19) 1.38 H APTT (25 - 37 SEC) 31 Hematology CBC w Diff NO MAN DIFF REQ WBC (4.8 - 10.8 /CUMM) 4.8 RBC (4.20 - 5.40 /CUMM) 2.36 L Hgb (12.0 - 16.0 G/DL) 7.3 *L Hct (37 - 47 %) 21.5 L MCV (81.0 - 99.0 FL) 91.4 MCH (27.0 - 31.0 PG) 30.9 MCHC (33.0 - 37.0 G/DL) 33.8 RDW (11.5 - 14.5 %) 15.9 H Plt Count (130 - 400 /CUMM) 120 L MPV (7.4 - 10.4 FL) 11.8 H Gran % (42.2 - 75.2 %) 61.3 Lymphocytes % (20.5 - 51.1 %) 34.2 Monocytes % (1.7 - 9.3 %) 4.2 Eosinophils % (0 - 5 %) 0.1 Basophils % (0.0 - 2.0 %) 0.2 Absolute Granulocytes (1.4 - 6.5 /CUMM) 3.0 Absolute Lymphocytes (1.2 - 3.4 /CUMM) 1.7 Absolute Monocytes (0.10 - 0.60 /CUMM) 0.2 Absolute Eosinophils (0.0 - 0.7 /CUMM) 0 Absolute Basophils (0.0 - 0.2 /CUMM) 0 Serology Lyme Disease Antibody Pending Toxicology Urine Opiates Screen (>2000 NG/ML) < 100 Methadone Screen (>300 NG/ML) < 40 Barbiturate Screen (>200 NG/ML) < 60 Ur Phencyclidine Scrn (>25 NG/ML) < 6.00 Amphetamines Screen (>1000 NG/ML) 232 U Benzodiazepines Scrn (>200 NG/ML) < 85 Urine Cocaine Screen (>300 NG/ML) < 50 Urine Cannabis Screen (>50 NG/ML) < 5.00 Diagnostic Data EKG Results Tracing was personally reviewed and shows sinus bradycardia at 52 bpm with normal R-wave progression CXR Results Cardiomegaly as before. Other Results Telemetry tracings were personally reviewed and shows sinus bradycardia Assessment/Plan Assessment/Plan 1. Hypotension/hypovolemia due to diarrhea 2. Sinus bradycardia 3. Anemia requiring transfusion 4. History of paroxysmal atrial fibrillation on outpatient Eliquis 5. Prior CVA 6. History of dementia/hypertension/hyperlipidemia/remote pulmonary emboli 7. History of diabetes/uterine fibroids The patient is noted to have a sinus bradycardia although the hypotension appears to have been due to hypovolemia. Would continue to hold the beta-rajiv but no indication for permanent pacemaker at this time. Eliquis is being held given the significant anemia with concern for possible GI bleeding. Recommend obtaining an echocardiogram. Would continue to hold her outpatient antihypertensives for the time being. Keep on telemetry. Rolly Abreu MD [facility] Consult Acknowledgment - Thank you for your consult request.
--- NOTE | 2017-07-04 14:30 | Cons- Gastroenterology ---
General Information and HPI Consulting Request Date of Consult: 07/04/17 Requested By: Estella Tsai MD Reason for Consult: Anemia, guaiac positive stool. Source of Information: family, old records Exam Limitations: unable to give history, dementia History of Present Illness: is an 86 year old female with multiple medical problems including but not limited to afib/PE on Eliquis, s/p CVA with a feeding tube, dementia, anemia and hypertension who was rodrigo in to last night after being discharged from [place] a few days ago with complaints of persistent diarrhea and alterations of her mental status. Apparently she was found fby her visiting nurse unresponsive and an ambulance was called. According to her family since she was discharged from [facility] she has been having profuse watery black stools. There are no reports of any abdominal pain, vomiting or BRBPR. In the ER on arrival she was mildly hypotensive at 107/53, but she was not tachycardic. She was noted to have occult blood in her stool on a rectal exam, but she didn't have any brbpr, or overt melena. She was noted to have a hgb of 7.3 which was down from 10.1 when it was last checked here in late April. She was transfused with 2 units of PRBCs overnight with appropriate correction of her hgb to 10.5 this morning. Since admission she has remained hemodynamically stable and she has not had any overt bleeding or any diarrhea. Allergies/Medications Allergies: Coded Allergies: NO KNOWN ALLERGIES (05/29/15) Home Med List: Acetaminophen 325 MG TABLET 2 TAB PO TID PAIN (Reported) Apixaban (Eliquis) 2.5 MG TABLET 1 TAB PO BID BLOOD THINNR (Reported) Atorvastatin Calcium 80 MG TABLET 1 TAB PO 1700 HLD (Reported) Carvedilol 3.125 MG TABLET 1 TAB PO BID HEART (Reported) Ergocalciferol (Vitamin D2) (Vitamin D2) 50,000 UNIT CAPSULE 1 CAP PO QFRI SUPPLEMENT (Reported) Ferrous Sulfate (IRON) 325 MG (65 MG IRON) TABLET 1 TAB PO DAILY SUPPLEMENT ( Reported) Ferrous Sulfate 300 MG (60 MG IRON)/5 ML LIQUID 7.5 ML PO QAM SUPPLEMENT ( Reported) Gabapentin 100 MG CAPSULE 1 CAP PO DAILY NEUROPATHY (Reported) Hydralazine HCl 50 MG TABLET 1 TAB PO TID HEART (Reported) Lactobacillus Acidophilus (Probiotic) 10 BILLION CELL CAPSULE 1 CAP PO DAILY PROBIOTIC (Reported) Losartan Potassium 50 MG TABLET 1 TAB PO QPM HEART/BP (Reported) Multivitamin (Multivitamins) 1 EACH CAPSULE 1 TAB PO DAILY SUPPLEMENT ( Reported) Pantoprazole Sodium 40 MG TABLET.DR 1 TAB PO DAILY GI (Reported) Sertraline HCl 25 MG TABLET 2 TAB PO DAILY MENTAL HEALTH (Reported) Vitamin B Complex (Super B-50 Complex) 1 EACH CAPSULE 1 CAP PO DAILY SUPPLEMENT (Reported) Current Medications: Current Medications Sig/Renee Start time Last Medication Dose Route Stop Time Status Admin Dextrose 25 GM ONCE ONE 07/03 2030 DC 07/03 IV 07/03 Dextrose 25 GM ONCE ONE 07/03 1700 DC 07/03 IV 07/03 1701 1703 Dextrose 25 GM ONCE ONE 07/03 1600 DC 07/03 IV 07/03 1601 1600 Dextrose 25 GM ONCE ONE 07/03 1315 DC 07/03 IV 07/03 1316 1259 Dextrose 0 .STK-MED ONE 07/03 1305 DC IV Dextrose 0 .STK-MED ONE 07/03 1303 DC IV Dextrose/Sodium 1,000 ML Q10H 07/03 2100 AC 07/04 Chloride IV 0449 Dextrose/Sodium 1,000 ML ONCE ONE 07/03 1600 DC 07/03 Chloride IV 07/04 0519 1703 Magnesium Sulfate 1 GM .STK-MED ONE 07/03 2021 DC IM 07/03 202 Magnesium Sulfate 1 GM Q2H 07/03 1830 DC 07/03 Dextrose/Water 100 ML IV 07/03 2229 2130 Naloxone HCl 0 .STK-MED ONE 07/03 1800 DC .ROUTE Naloxone HCl 0.4 MG ONCE ONE 07/03 1745 DC 07/03 SC 07/03 1746 1757 Potassium Chloride 10 MEQ Q1H 07/03 1715 DC 07/03 IV 07/03 1816 2022 Sodium Chloride 1,000 ML BOLUS ONE 07/03 1815 DC 07/03 IV 07/03 1914 1825 Sodium Chloride 1,000 ML BOLUS ONE 07/03 1315 DC 07/03 IV 07/03 1414 1356 Past History Travel History Traveled to [place] past 21 day No Medical History Blood Transfusion Hx: Yes Neurological: CVA, dementia EENT: cataracts, epistaxis Cardiovascular: AFIB, hypertension, hyperlipidemia, varicose veins Respiratory: pulmonary embolism (remote), pulmonary edema Gastrointestinal: constipation, ACID REFLUX Post PEG pandiverticulosis coli, L> R Hx colon adenoma Hepatic: NONE Renal: RIGHT RENAL ARTERY STENOSIS Musculoskeletal: chronic back pain, disk herniation, osteoarthritis, Back surgery osteopenia Psychiatric: depression (post CVA) Endocrine: obesity, vitamin D deficiency, DM Blood Disorders: anemia Cancer(s): 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 MOTHER (MVA). , Age 30-40; Cause: MVA (motor vehicle accident). FATHER, , Age 30-40; Cause: MVA (motor vehicle accident). Psychosocial History Where Do You Live? Home Who Do You Live With? 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 no Power of Composite Bond Worker/HCP? no Functional Ability ADLs Needs Assist: dressing, eating, toileting, bathing. Ambulation: non-ambulatory IADLs Needs Assist: shopping, housework, finances, food prep, telephone, transportation, medication admin. Review of Systems Review of Systems: A full 12 point review of systems was unobtainable secondary to her dementia. Exam & Diagnostic Data Vital Signs and I&O Vital Signs Date Time Temp Pulse Resp B/P B/P Pulse O2 O2 Flow FiO2 Mean Ox Delivery Rate 07/04 040 100 Nasal 2.0L Cannula 07/04 0000 99 Nasal 2.0L Cannula 07/04 1999 99 Nasal 2.0L Cannula 07/04 1999 97.5 45 12 132/68 99 Nasal 2.0L Cannula 07/03 1927 138/62 07/03 1916 97.3 45 12 136/72 100 Nasal 2.0L Cannula 07/03 1745 97.2 36 12 84/50 100 Nasal 2.0L Cannula 07/03 1608 97.4 43 16 139/66 100 Nasal 2.0L Cannula 07/03 1407 97.1 07/03 1308 91 Room Air 07/03 1301 94.1 41 14 107/53 92 Room Air Intake & Output 07/04 07/04 0400 Intake Total 1049 3441 Output Total 100 50 Balance 949 3391 Intake, Blood 350 Product Intake, IV 699 3441 Number 1 2 Bowel Movements Output, Urine 100 50 Patient 152 lb Weight Weight Bed scale Measurement Method Physical Exam General Appearance: well developed/nourished, no apparent distress, comfortable Head: atraumatic, normal appearance Eyes: Bilateral: normal appearance. Neck: normal inspection, supple, full range of motion Respiratory: normal breath sounds, chest non-tender, no respiratory distress Cardiovascular: irregularly irregular Gastrointestinal: normal bowel sounds, soft, non-tender, PEG c/d/i Rectal: deferred, guaiac positive per ED Extremities: normal inspection, no edema Neurologic/Psych: no motor/sensory deficits, awake Skin: intact, normal color Results Pertinent Lab Results: Laboratory Tests 07/04 07/04 0600 0210 Chemistry Sodium (137 - 145 mmol/L) 143 Potassium (3.5 - 5.1 mmol/L) 3.5 Chloride (98 - 107 mmol/L) 120 H Carbon Dioxide (22 - 30 mmol/L) 16 L Anion Gap (5 - 16) 8 BUN (7 - 17 mg/dL) 22 H Creatinine (0.5 - 1.0 mg/dL) 1.0 Estimated GFR (>60 ml/min) 52 L Glucose (65 - 99 mg/dL) 149 H Calcium (8.4 - 10.2 mg/dL) 7.8 L Phosphorus (2.5 - 4.5 mg/dL) 2.9 Magnesium (1.6 - 2.3 mg/dL) 2.2 Total Bilirubin (0.2 - 1.3 mg/dL) 1.0 AST (14 - 36 U/L) 17 ALT (9 - 52 U/L) 24 Albumin (3.5 - 5.0 g/dL) 2.2 L Hematology CBC w Diff MAN DIFF ORDERED NO MAN DIFF REQ WBC (4.8 - 10.8 /CUMM) 5.7 7.2 RBC (4.20 - 5.40 /CUMM) 3.41 L 3.51 L Hgb (12.0 - 16.0 G/DL) 10.5 L 10.8 L Hct (37 - 47 %) 30.9 L 31.9 L MCV (81.0 - 99.0 FL) 90.6 90.8 MCH (27.0 - 31.0 PG) 30.7 30.7 MCHC (33.0 - 37.0 G/DL) 33.9 33.8 RDW (11.5 - 14.5 %) 15.9 H 14.9 H Plt Count (130 - 400 /CUMM) 125 L 113 L MPV (7.4 - 10.4 FL) 11.0 H 11.2 H Gran % (42.2 - 75.2 %) 59.1 60.7 Lymphocytes % (20.5 - 51.1 %) 31.1 27.5 Monocytes % (1.7 - 9.3 %) 9.5 H 11.4 H Eosinophils % (0 - 5 %) 0.3 0.1 Basophils % (0.0 - 2.0 %) 0 0.3 Absolute Granulocytes (1.4 - 6.5 /CUMM) 3.4 4.4 Segmented Neutrophils (42.2 - 75.2 %) 55 Band Neutrophils (0.0 - 5.0 %) 1 Absolute Lymphocytes (1.2 - 3.4 /CUMM) 1.8 2.0 Lymphocytes (20.5 - 51.1 %) 40 Monocytes (1.7 - 9.3 %) 4 Absolute Monocytes (0.10 - 0.60 /CUMM) 0.5 0.8 H Absolute Eosinophils (0.0 - 0.7 /CUMM) 0 0 Absolute Basophils (0.0 - 0.2 /CUMM) 0 0 Platelet Estimate (ADEQUATE) ADEQUATE Polychromasia 1+ Poikilocytosis 3+ Ovalocytes 1+ [place] Cells 2+ Elliptocytes FEW Other Body Source Fld Total RBCs Counted (%) 100 07/03 07/03 07/03 2330 2200 1602 Chemistry Sodium (137 - 145 mmol/L) 144 Cancelled Potassium (3.5 - 5.1 mmol/L) 4.0 Cancelled Chloride (98 - 107 mmol/L) 119 H Cancelled Carbon Dioxide (22 - 30 mmol/L) 16 L Cancelled Anion Gap (5 - 16) 10 Cancelled BUN (7 - 17 mg/dL) 25 H Cancelled Creatinine (0.5 - 1.0 mg/dL) 1.1 H Cancelled Estimated GFR (>60 ml/min) 47 L Glucose (65 - 99 mg/dL) 130 H Cancelled Lactic Acid Cancelled Calcium (8.4 - 10.2 mg/dL) 7.8 L Cancelled Phosphorus (2.5 - 4.5 mg/dL) 3.0 Cancelled Magnesium (1.6 - 2.3 mg/dL) 2.2 Cancelled Total Bilirubin (0.2 - 1.3 mg/dL) 1.2 Cancelled AST (14 - 36 U/L) 20 Cancelled ALT (9 - 52 U/L) 23 Cancelled Troponin I (< 0.11 ng/ml) < 0.01 Albumin (3.5 - 5.0 g/dL) 2.2 L Cancelled Hematology CBC w Diff Cancelled WBC Cancelled RBC Cancelled Hgb Cancelled Hct Cancelled MCV Cancelled MCH Cancelled MCHC Cancelled RDW Cancelled Plt Count Cancelled MPV Cancelled 07/03 07/03 1555 1550 Blood Gas pH (7.35 - 7.45 PH) 7.30 *L pCO2 (35 - 45 TORR) 32 L pO2 (80 - 100 TORR) 107 H HCO3 (21 - 28 MEQ/L) 15 L ABG O2 Sat (Measured) (>96.0 %) 97.0 P-50 (Temp Corrected) N Carboxyhemoglobin (1.5 - 5.0 %) 0.2 L O2 Concentration % 2.5L Temperature (97.0 - 100.0 FARH) 97.1 O2 Delivery Method NC Miscellaneous Phlebotomy Draw Site RIGHT RADIAL Urines Urine Color (YEL,AMB,STR) YEL Urine Clarity (CLEAR) CLDY H Urine pH (5.0 - 8.0) 8.5 H Ur Specific [place] (1.001 - 1.035) 1.020 Urine Protein (NEG,<30 MG/DL) 100 H Urine Ketones (NEG) NEG Urine Nitrite (NEG) NEG Urine Bilirubin (NEG) NEG Urine Urobilinogen (0.1 - 1.0 EU/dl) 0.2 Ur Leukocyte Esterase (NEG) MOD H Ur Microscopic SEDIMENT EXAMINED Urine RBC (0 - 5 /HPF) 1-3 Urine WBC (0 - 2 /HPF) > 75 H Ur Epithelial Cells (NONE,FEW) RARE Urine Bacteria (NEG/NONE) PACKD H Urine Hemoglobin (NEG) TRACE-INTACT Urine Glucose (N MG/DL) NEG 07/03 07/03 07/03 1355 1315 1302 Chemistry Sodium (137 - 145 mmol/L) 140 Potassium (3.5 - 5.1 mmol/L) 3.1 L Chloride (98 - 107 mmol/L) 115 H Carbon Dioxide (22 - 30 mmol/L) 18 L Anion Gap (5 - 16) 7 BUN (7 - 17 mg/dL) 27 H Creatinine (0.5 - 1.0 mg/dL) 1.2 H Estimated GFR (>60 ml/min) 42 L BUN/Creatinine Ratio (7 - 25 %) 22.5 Glucose (65 - 99 mg/dL) 185 H Lactic Acid (0.7 - 2.1 mmol/L) 1.5 Calcium (8.4 - 10.2 mg/dL) 7.8 L Phosphorus (2.5 - 4.5 mg/dL) 3.0 Magnesium (1.6 - 2.3 mg/dL) 1.8 Total Bilirubin (0.2 - 1.3 mg/dL) 0.6 AST (14 - 36 U/L) 17 ALT (9 - 52 U/L) 18 Alkaline Phosphatase (<127 U/L) 65 Troponin I (< 0.11 ng/ml) < 0.01 [facility] Pept (<125 pg/mL) 1900 H Total Protein (6.3 - 8.2 g/dL) 4.1 L Albumin (3.5 - 5.0 g/dL) 1.9 L Globulin (1.9 - 4.2 gm/dL) 2.2 Albumin/Globulin Ratio (1.1 - 2.2 %) 0.9 L Free T4 (0.85 - 1.93 ng/dL) 1.62 Total T3 (0.97 - 1.69 ng/mL) 0.71 L TSH &T3 &Free T4 Intrp (0.270 - 4.20 uIU/mL) 2.410 Coagulation PT (9.4 - 12.5 SEC) 15.1 H INR (0.90 - 1.19) 1.38 H APTT (25 - 37 SEC) 31 Hematology CBC w Diff NO MAN DIFF REQ WBC (4.8 - 10.8 /CUMM) 4.8 RBC (4.20 - 5.40 /CUMM) 2.36 L Hgb (12.0 - 16.0 G/DL) 7.3 *L Hct (37 - 47 %) 21.5 L MCV (81.0 - 99.0 FL) 91.4 MCH (27.0 - 31.0 PG) 30.9 MCHC (33.0 - 37.0 G/DL) 33.8 RDW (11.5 - 14.5 %) 15.9 H Plt Count (130 - 400 /CUMM) 120 L MPV (7.4 - 10.4 FL) 11.8 H Gran % (42.2 - 75.2 %) 61.3 Lymphocytes % (20.5 - 51.1 %) 34.2 Monocytes % (1.7 - 9.3 %) 4.2 Eosinophils % (0 - 5 %) 0.1 Basophils % (0.0 - 2.0 %) 0.2 Absolute Granulocytes (1.4 - 6.5 /CUMM) 3.0 Absolute Lymphocytes (1.2 - 3.4 /CUMM) 1.7 Absolute Monocytes (0.10 - 0.60 /CUMM) 0.2 Absolute Eosinophils (0.0 - 0.7 /CUMM) 0 Absolute Basophils (0.0 - 0.2 /CUMM) 0 Serology Lyme Disease Antibody Pending Toxicology Urine Opiates Screen (>2000 NG/ML) < 100 Methadone Screen (>300 NG/ML) < 40 Barbiturate Screen (>200 NG/ML) < 60 Ur Phencyclidine Scrn (>25 NG/ML) < 6.00 Amphetamines Screen (>1000 NG/ML) 232 U Benzodiazepines Scrn (>200 NG/ML) < 85 Urine Cocaine Screen (>300 NG/ML) < 50 Urine Cannabis Screen (>50 NG/ML) < 5.00 Imaging/Other Studies: Endoscopy 08/24/16 1. Normal esophagus with Z line at 38 cm. 2. Internal bumper of PEG seen in gastric body. 3. Otherwise, normal upper endoscopy to the second portion of the duodenum. Colonoscopy Procedure Medical History: unchanged Mental Status: confused Heart/Lung Eval Prior to Sedation: within normal limits Candidate for Sedation? Yes Date of Last Colonoscopy: 2014 Procedure Date: 02/07/17 Procedure Type: colonoscopy [employer]: MD Keyonna, Luciana Torres ASA Classification: III Indications: 1. Blood in Stool 2. Anemia Instrument (Colonoscope): single channel Meds Received: MAC Patient's Tolerance: good Complications: none Extent Reached: cecum Prep: poor Procedure: The patient took a split dose colonic preparation after which they were NPO for an appropriate time prior to procedure. Note: Informed consent was obtained prior to procedure. Risks and benefits of procedure were discussed with patient. Potential complications discussed included perforation, bleeding, abdominal pain, and adverse reaction to medications. It was explained that iany or all of these complications could result in the need for extended hospitalization, emergency surgery, transfusion of packed red blood cells (with the risk of HIV or hepatitis virus), intubation with mechanical ventilation, and possible need for antibiotics. It was further explained that an existing tumor polyp or mucosal abnormality might not be identified at the time of the procedure thus resulting in a missed opportunity for early diagnosis and treatment of a gastrointestinal malignancy or disease with possible interval development of a gastrointestinal cancer or other disease with possible worsening of clinical condition in the interval between endoscopies. It was also discussed that complications are not limited to those listed above. Possible alternatives to endoscopic treatment or evaluation were discussed. All questions were answered. Continuous EKG and blood pressure monitors were attached. Supplemental oxygen was provided with O2 Sat monitoring. Patient was placed in the left lateral decubitus position. A surgical timeout was performed. All persons in the room were identified. All concerns were expressed and answered. Sedation was administered by anesthesia and titrated to comfort prior to starting procdedure. A digital rectal exam was performed. There was normal tone and no masses. The Olympus CHF 180AL video colonoscope was advanced under direct vision to the level of the cecum. The cecum was easily identified by internal landmarks. The cecum, ileocecal valve and appendiceal orifice were easily identified and photo documented. With colonoscope in the forward-viewing position it was slowly withdrawn and all areas were reinspected. The cecum, ascending colon, hepatic flexure, transverse colon, splenic flexure, descending colon, sigmoid colon, rectosigmoid junction, rectum and retroflexed view of the rectum all fully examined. The preparation was extremely poor there was liquid and formed stool extending from the rectum throughout the sigmoid colon. This was washed and stool could be cleared from all but the rectum and distal sigmoid colon. There were multiple diverticuli throughout the sigmoid and descending colon. Diverticulosis was mild. There were also scattered diverticuli that were less numerous in the ascending and transverse colon. Retroflexed view of the rectum revealed a normal mucosal and vascular pattern with the exception of scattered small erosions and erythema. There were alsoNonbleeding, Grade 2 Internal and External hemorrhoids. However given the presence of large amounts of formed stool in the rectal vault a large stercoral ulcer might have been missed. The stool in the rectum was washed multiple times however it was soft and tenacious and clogged the scope. The scope was brushed multiple times. The stool could not be adequately cleared in the rectum so both large and small lesions may have been missed. There was a normal mucosal and vascular pattern throughout the colon. Air was suctioned as the scope was withdrawn from the colon. Patient tolerated the procedure well. Cecal withdrawal time: 16 minutes Colonic preparation: Right Colon: 3; Transverse Colon: 3; Left Colon: 1; Gibson Prep Scale Total: 7. Difficulty of Colonoscopy: Not difficult EBL: None Specimens Removed: None Findings: 1. Diverticulosis 2. Stool throughout left side of the colon 3. Nonbleeding, Grade 2 Internal and External hemorrhoids SERVICE DATE: 07/03/17 EXAM TYPE: CAT - CT ABD & PELVIS W/O IV CONTRAS EXAMINATION: CT ABDOMEN AND PELVIS WITHOUT CONTRAST CLINICAL INFORMATION: Abdominal pain. Evaluate for abdominal process. COMPARISON: CT abdomen and pelvis 05/08/2017. TECHNIQUE: Multidetector volumetric imaging was performed from the superior aspect of the liver through the pubic symphysis. Sagittal and coronal reformatted images were obtained on the technologist's workstation. DLP: 676.8 mGy-cm FINDINGS: LUNG BASES: There are small bilateral pleural effusions with associated bibasilar subsegmental atelectasis. Trace pericardial effusion. The density of blood within the cardiac chambers and aorta is relatively low indicating the likelihood of underlying anemia. LIVER, GALLBLADDER, AND BILIARY TREE: The unenhanced liver attenuation is homogeneous with no evidence of a discrete hepatic parenchymal mass. The gallbladder is unremarkable with no evidence of radiopaque gallstones, gallbladder wall thickening, or obvious pericholecystic inflammatory changes. PANCREAS: Unremarkable. SPLEEN: Unremarkable. ADRENAL GLANDS: Unremarkable. KIDNEYS AND URETERS: Kidneys are symmetric in size. There is a well marginated exophytic lesion arising from the interpolar left kidney that is consistent with a renal cyst that was better demonstrated on the CT scan of abdomen and pelvis from 05/08/2017. No nephrolithiasis or hydronephrosis. No worrisome mass or calcifications visualized along the expected course the right or left ureter. BLADDER: Unremarkable. GASTROINTESTINAL TRACT: A gastrostomy tube is in place. Stomach and small bowel are otherwise unremarkable. No evidence to suggest obstruction. No free intraperitoneal air or fluid. The appendix is not definitively visualized however there are no abnormal inflammatory changes at the base of cecum to suggest acute appendicitis. The colon is unremarkable. There is a relatively large volume of stool within the rectum and circumferential mucosal thickening within the rectal mucosa as well as mild inflammatory stranding within the perirectal fat. These findings indicate the likelihood of underlying stercoral colitis. ABDOMINAL WALL: No significant hernia is appreciated. LYMPH NODES: No pathologically enlarged mesenteric or retroperitoneal lymph nodes. VASCULAR: Heavily calcified atherosclerotic plaque involves the abdominal aorta and iliac vessels. The unenhanced inferior vena cava is grossly unremarkable. PELVIC VISCERA: There is a fibroid uterus. The dominant fibroid located at the uterine fundus measures 6.7 cm in maximal transaxial dimension which represents no substantial change from the recently obtained examination from 05/08/2017. No worrisome adnexal mass. OSSEOUS STRUCTURES: There is no acute osseous finding. Specifically no worrisome lytic or blastic osseous lesion. No evidence of acute fracture. Slight anterolisthesis of L4 on L5 that appears to be related to advanced facet degenerative changes at this level. IMPRESSION: There is a relatively large volume of stool within the rectum and circumferential thickening within the rectal mucosa indicating the likelihood of underlying stercoral colitis. Otherwise no abnormal finding to provide a definitive explanation for the patient's abdominal pain. Of note the density of blood within the cardiac chambers and aorta is relatively low indicating likelihood of underlying anemia therefore correlation with the patient's hematocrit is recommended. There are small bilateral pleural effusions with associated bibasilar subsegmental atelectasis and a trace pericardial effusion. Mild edema within the subcutaneous tissues indicates the possibility of volume overload or third space redistribution of fluid. There is a fibroid uterus that remains grossly unchanged when compared to the recently obtained CT scan of the abdomen and pelvis from 05/08/2017. Assessment/Plan Assessment/Recommendations: Assessment: Ms. Landaverde is an 86 year old female with multiple medical problems who was readmitted to last night with changes in her mental status and recurrent anemia. She has had a fall in her hgb of a few grams from when she was last here in late and she is guaiac positive, but she is without overt bleeding so I feel the blood loss likely took place over a period of time. She had a negative EGD and colonsocopy last year and unless she develops overt GI bleeding I don't feel that either needs to be repeated now. She may benefit from a pill cam to evaluate for a small bowel source of anemia, but the pill cam would need to be placed endoscopically and unfortunately we are not currently equipped as an institution to perform inpatient pill cams. Even though it will need to be placed endosocpically it can still be done as an outpatient. At further issue is whether or not to continue her anticoagulation as I feel that her recurrent anemia would likely improve if this can be discontinued and while I understand she is at high risk for a recurrent CVA this risk needs to be weighed against the risk of continuing to lose blood which may ultimately lead to a cardiac event. Recommendations: 1. Ok to use feeding tube for meds and tube feeds. 2. Follow daily cbc and transfuse as needed to maintain hgb > 8 or as per cardiology recommednations. 3. No absolute contraindications to continuing her Elliquis for now, but would contact cardiology to see if this can potentially be changed to a full dose aspirin considering her recurrent anemia 4. I have checked with the 'brendan mendoza' a pill cam is currently not able to be done as an inpatient due to various institutional factors so will tentatively plan to do this as an outpatient with the pill being placed endoscopically, but this may not be absolutely necessary if her anti-coagulation can be held and if that results in resolution of her anemia. 5. If she has any diarrhea in house would send stool studies to check c diff, culture and o and p. Will sign off at this time and ask that GI be recontacted for any overt GI bleeding or any new GI issues which may arise while she is an inpatient. Problem List: 1. Atrial fibrillation 2. Anemia 3. GI bleed 4. Melena 5. S/P percutaneous endoscopic gastrostomy (PEG) tube placement Consult Acknowledgment - Thank you for your consult request.
--- NOTE | 2017-07-04 15:26 | Cons- Infect Disease ---
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, hypertension, hyperlipidemia, renal artery stenosis, atrial fibrillation, maintained on Eliquis, diabetes, osteoarthritis, with chronic back pain, with a PEG tube in place since her CVA, hospitalized 5 months prior to admission with a fecal impaction and 2 months prior to admission with hypoglycemia, recently hospitalized at [facility] with hypotension and diarrhea and discharged just 2 days prior to admission, with no antibiotics reportedly given on that hospitalization, admitted on July 03 after she was brought to the emergency room from home with increased lethargy and confusion, decreased oral intake and diarrhea. On admission her temperature was 94, blood pressure 84/44 and heart rate of 40. She was noted to have liquid, guaiac positive stools. Laboratory data revealed a white blood cell count of 5000, H&H 7 and 22, platelets 120,000, BUN/ creatinine 27 and 1.2, potassium 3.1, with normal liver enzymes, INR 1.38. ABG 7.30/32/107. Urinalysis 1-3 RBC/greater than 75 WBCs. Chest x-ray revealed cardiomegaly. CT of the head was negative for any acute process. CT of the abdomen and pelvis revealed a large volume of stool within the rectum with circumferential thickening within the rectal mucosa, indicating likely stercoral colitis; small bilateral pleural effusions with associated bibasilar atelectasis. She was transfused 2 units of blood, given 3 L of fluid and admitted to the ICU. She has remained afebrile since admission. This afternoon one blood culture was reported positive for gram-positive cocci in clusters and her urine culture is positive for greater than 100,000 findings of gram-negative rods. She has been given 1 dose of Vancomycin and 1 dose of Ceftriaxone. She is unable to provide a reliable history, likely secondary to her underlying dementia. Allergies/Medications Allergies: Coded Allergies: NO KNOWN ALLERGIES (05/29/15) Home Med List: Acetaminophen 325 MG TABLET 2 TAB PO TID PAIN (Reported) Apixaban (Eliquis) 2.5 MG TABLET 1 TAB PO BID BLOOD THINNR (Reported) Atorvastatin Calcium 80 MG TABLET 1 TAB PO 1700 HLD (Reported) Carvedilol 3.125 MG TABLET 1 TAB PO BID HEART (Reported) Ergocalciferol (Vitamin D2) (Vitamin D2) 50,000 UNIT CAPSULE 1 CAP PO QFRI SUPPLEMENT (Reported) Ferrous Sulfate (IRON) 325 MG (65 MG IRON) TABLET 1 TAB PO DAILY SUPPLEMENT ( Reported) Ferrous Sulfate 300 MG (60 MG IRON)/5 ML LIQUID 7.5 ML PO QAM SUPPLEMENT ( Reported) Hydralazine HCl 50 MG TABLET 1 TAB PO TID HEART (Reported) Lactobacillus Acidophilus (Probiotic) 10 BILLION CELL CAPSULE 1 CAP PO DAILY PROBIOTIC (Reported) Losartan Potassium 50 MG TABLET 1 TAB PO QPM HEART/BP (Reported) Multivitamin (Multivitamins) 1 EACH CAPSULE 1 TAB PO DAILY SUPPLEMENT ( Reported) Pantoprazole Sodium 40 MG TABLET.DR 1 TAB PO DAILY GI (Reported) Sertraline HCl 25 MG TABLET 2 TAB PO DAILY MENTAL HEALTH (Reported) Vitamin B Complex (Super B-50 Complex) 1 EACH CAPSULE 1 CAP PO DAILY SUPPLEMENT (Reported) Past History Travel History Traveled to [place] past 21 day No Medical History Blood Transfusion Hx: Yes Neurological: CVA, dementia EENT: cataracts, epistaxis Cardiovascular: AFIB, hypertension, hyperlipidemia, varicose veins Respiratory: pulmonary embolism (remote), pulmonary edema Gastrointestinal: constipation, ACID REFLUX Post PEG pandiverticulosis coli, L> R Hx colon adenoma Hepatic: NONE Renal: RIGHT RENAL ARTERY STENOSIS Musculoskeletal: chronic back pain, disk herniation, osteoarthritis, osteopenia Psychiatric: depression (post CVA) Endocrine: diabetes, obesity, vitamin D deficiency Blood Disorders: anemia Cancer(s): NONE 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 MOTHER (MVA). , Age 30-40; Cause: MVA (motor vehicle accident). FATHER, , Age 30-40; Cause: MVA (motor vehicle accident). Psychosocial History Where Do You Live? Home Who Do You Live With? spouse ( & dtr, Nhi Akhil), child Services at Home: Home Health Aide, Nursing Primary Language: German, Argentine Smoking Status: Never Smoked ETOH Use: denies use Illicit Drug Use: denies illicit drug use Living Will? no Power of Landcare Officer/HCP? no Functional Ability ADLs Needs Assist: dressing, eating, toileting, bathing. Ambulation: non-ambulatory IADLs Needs Assist: shopping, housework, finances, food prep, telephone, transportation, medication admin. Review of Systems Comments Unable to obtain Exam & Diagnostic Data Last 24 Hrs of Vital Signs/I&O Vital Signs Date Time Temp Pulse Resp B/P B/P Pulse O2 O2 Flow FiO2 Mean Ox Delivery Rate 07/04 1209 94 Room Air 07/04 0800 98 Nasal 2.0L Cannula 07/04 0800 97.8 50 18 134/44 98 Nasal 2.0L Cannula 07/04 0400 100 Nasal 2.0L Cannula 07/04 0000 99 Nasal 2.0L Cannula 07/04 1999 99 Nasal 2.0L Cannula 07/04 1999 97.5 45 12 132/68 99 Nasal 2.0L Cannula 07/03 1927 138/62 07/03 1916 97.3 45 12 136/72 100 Nasal 2.0L Cannula 07/03 1745 97.2 36 12 84/50 100 Nasal 2.0L Cannula 07/03 1608 97.4 43 16 139/66 100 Nasal 2.0L Cannula Intake & Output 07/04 1600 07/04 0800 07/04 0000 Intake Total 800 1049 3441 Output Total 150 100 50 Balance 108 253 3546 Intake, Blood 350 Product Intake, IV 739 360 1563 Intake, Oral 0 Number 4 1 2 Bowel Movements Output, Stool 50 Output, Urine 100 100 50 Patient 152 lb Weight Weight Bed scale Measurement Method Physical Exam Other Physical Findings: She is awake and alert, crying out, but in no acute distress. Afebrile, with a temperature 94.1 in the ER yesterday. Skin reveals no rash. HEENT exam is negative. Neck is supple with no adenopathy. Lungs are clear. Heart regular rhythm with no murmur. Abdomen is soft, nontender with positive bowel sounds. Back no definite CVA tenderness. Extremities no cyanosis, clubbing or edema. Neuro left hemiparesis. Arredondo catheter is in place. Last 24 Hours of Lab Results: Laboratory Tests 07/04 07/04 0600 0210 Chemistry Sodium (137 - 145 mmol/L) 143 Potassium (3.5 - 5.1 mmol/L) 3.5 Chloride (98 - 107 mmol/L) 120 H Carbon Dioxide (22 - 30 mmol/L) 16 L Anion Gap (5 - 16) 8 BUN (7 - 17 mg/dL) 22 H Creatinine (0.5 - 1.0 mg/dL) 1.0 Estimated GFR (>60 ml/min) 52 L Glucose (65 - 99 mg/dL) 149 H Calcium (8.4 - 10.2 mg/dL) 7.8 L Phosphorus (2.5 - 4.5 mg/dL) 2.9 Magnesium (1.6 - 2.3 mg/dL) 2.2 Total Bilirubin (0.2 - 1.3 mg/dL) 1.0 AST (14 - 36 U/L) 17 ALT (9 - 52 U/L) 24 Albumin (3.5 - 5.0 g/dL) 2.2 L Hematology CBC w Diff MAN DIFF ORDERED NO MAN DIFF REQ WBC (4.8 - 10.8 /CUMM) 5.7 7.2 RBC (4.20 - 5.40 /CUMM) 3.41 L 3.51 L Hgb (12.0 - 16.0 G/DL) 10.5 L 10.8 L Hct (37 - 47 %) 30.9 L 31.9 L MCV (81.0 - 99.0 FL) 90.6 90.8 MCH (27.0 - 31.0 PG) 30.7 30.7 MCHC (33.0 - 37.0 G/DL) 33.9 33.8 RDW (11.5 - 14.5 %) 15.9 H 14.9 H Plt Count (130 - 400 /CUMM) 125 L 113 L MPV (7.4 - 10.4 FL) 11.0 H 11.2 H Gran % (42.2 - 75.2 %) 59.1 60.7 Lymphocytes % (20.5 - 51.1 %) 31.1 27.5 Monocytes % (1.7 - 9.3 %) 9.5 H 11.4 H Eosinophils % (0 - 5 %) 0.3 0.1 Basophils % (0.0 - 2.0 %) 0 0.3 Absolute Granulocytes (1.4 - 6.5 /CUMM) 3.4 4.4 Segmented Neutrophils (42.2 - 75.2 %) 55 Band Neutrophils (0.0 - 5.0 %) 1 Absolute Lymphocytes (1.2 - 3.4 /CUMM) 1.8 2.0 Lymphocytes (20.5 - 51.1 %) 40 Monocytes (1.7 - 9.3 %) 4 Absolute Monocytes (0.10 - 0.60 /CUMM) 0.5 0.8 H Absolute Eosinophils (0.0 - 0.7 /CUMM) 0 0 Absolute Basophils (0.0 - 0.2 /CUMM) 0 0 Platelet Estimate (ADEQUATE) ADEQUATE Polychromasia 1+ Poikilocytosis 3+ Ovalocytes 1+ [place] Cells 2+ Elliptocytes FEW Other Body Source Fld Total RBCs Counted (%) 100 07/04 07/03 07/03 07/03 0200 2330 2200 1602 Chemistry Sodium (137 - 145 mmol/L) 144 Cancelled Potassium (3.5 - 5.1 mmol/L) 4.0 Cancelled Chloride (98 - 107 mmol/L) 119 H Cancelled Carbon Dioxide (22 - 30 mmol/L) 16 L Cancelled Anion Gap (5 - 16) 10 Cancelled BUN (7 - 17 mg/dL) 25 H Cancelled Creatinine (0.5 - 1.0 mg/dL) 1.1 H Cancelled Estimated GFR (>60 ml/min) 47 L Glucose (65 - 99 mg/dL) 130 H Cancelled Hemoglobin A1c (4.2 - 5.8 %) 5.6 Lactic Acid Cancelled Calcium (8.4 - 10.2 mg/dL) 7.8 L Cancelled Phosphorus (2.5 - 4.5 mg/dL) 3.0 Cancelled Magnesium (1.6 - 2.3 mg/dL) 2.2 Cancelled Total Bilirubin (0.2 - 1.3 mg/dL) 1.2 Cancelled AST (14 - 36 U/L) 20 Cancelled ALT (9 - 52 U/L) 23 Cancelled Troponin I (< 0.11 ng/ml) < 0.01 Albumin (3.5 - 5.0 g/dL) 2.2 L Cancelled Hematology CBC w Diff Cancelled WBC Cancelled RBC Cancelled Hgb Cancelled Hct Cancelled MCV Cancelled MCH Cancelled MCHC Cancelled RDW Cancelled Plt Count Cancelled MPV Cancelled 07/03 07/03 1555 1550 Blood Gas pH (7.35 - 7.45 PH) 7.30 *L pCO2 (35 - 45 TORR) 32 L pO2 (80 - 100 TORR) 107 H HCO3 (21 - 28 MEQ/L) 15 L ABG O2 Sat (Measured) (>96.0 %) 97.0 P-50 (Temp Corrected) N Carboxyhemoglobin (1.5 - 5.0 %) 0.2 L O2 Concentration % 2.5L Temperature (97.0 - 100.0 FARH) 97.1 O2 Delivery Method NC Miscellaneous Phlebotomy Draw Site RIGHT RADIAL Urines Urine Color (YEL,AMB,STR) YEL Urine Clarity (CLEAR) CLDY H Urine pH (5.0 - 8.0) 8.5 H Ur Specific Brandon (1.001 - 1.035) 1.020 Urine Protein (NEG,<30 MG/DL) 100 H Urine Ketones (NEG) NEG Urine Nitrite (NEG) NEG Urine Bilirubin (NEG) NEG Urine Urobilinogen (0.1 - 1.0 EU/dl) 0.2 Ur Leukocyte Esterase (NEG) MOD H Ur Microscopic SEDIMENT EXAMINED Urine RBC (0 - 5 /HPF) 1-3 Urine WBC (0 - 2 /HPF) > 75 H Ur Epithelial Cells (NONE,FEW) RARE Urine Bacteria (NEG/NONE) PACKD H Urine Hemoglobin (NEG) TRACE-INTACT Urine Glucose (N MG/DL) NEG Last 24 Hours of Klaus Results: Blood cultures July 03 1 bottle positive for gram-positive cocci in clusters Urine culture July 03 greater than 100,000 colonies of gram-negative rods Stool C. difficile July 03 negative Stool C. difficile July 04 negative Stool culture July 03 mixed fabiano Diagnostic Data Recent Imaging Findings: Chest x-ray revealed cardiomegaly. CT of the head was negative for any acute process. CT of the abdomen and pelvis revealed a large volume of stool within the rectum with circumferential thickening within the rectal mucosa indicating likely stercoral colitis; small bilateral pleural effusions with associated bibasilar atelectasis. Assessment/Plan Assessment/Plan Impression: This is an 86-year-old woman with dementia, status post right CVA, atrial fibrillation, maintained on Eliquis, diabetes, osteoarthritis, with chronic back pain, recently hospitalized at [facility] with hypotension and diarrhea and discharged just 2 days prior to admission, admitted on July 03 with increased lethargy and confusion, decreased oral intake and diarrhea, found to be hypothermic, hypotensive and bradycardic, with guaiac positive stools, anemia and mild thrombocytopenia, with a normal white blood cell count, and found to have 1 positive blood culture for gram-positive cocci in clusters and a positive urine culture. The significance of the positive blood culture is unclear. This may represent a contaminant, as it is only in 1 bottle and she is apparently a difficult stick; however, as it grew within 24 hours and she was recently hospitalized, the possibility that this represents a true infection, for example Staph aureus, must be considered, though she has no obvious focus of infection. If the blood culture proves to be coag negative Staph she should not require further treatment for this. The positive urine culture likely represents asymptomatic bacteriuria, but she is unable to provide a reliable history and, as she was hypothermic and hypotensive on admission, can continue empiric treatment for this for now. Her hypotension was likely secondary to decreased oral intake or the GI bleed, which likely explains her anemia. Her bradycardia is felt to be medication related. The CT scan does reveal evidence of stercoral colitis, which has been noted in the past, and a fecal impaction should be ruled out. Suggestion: 1. Further evaluation and management of a possible fecal impaction per Medicine 2. Further evaluation/management of her GI bleed per GI 3. Follow-up final blood and urine cultures 4. Further doses of Vancomycin based on above 5. Continue Ceftriaxone pending above Consult Acknowledgment - Thank you for your consult request.
[2017-07-04 17:02] VITALS: BP 123/93
--- NOTE | 2017-07-04 19:45 | Transfer of Care Summary ---
Hospital Course Course Hospital Course: This is a 86-year-old female with past medical history significant for right- sided MCA infarct, status post CVA, dementia since 2016, left-sided deficits, bedbound and wheelchair bound, atrial fibrillation on anticoagulation ELIQUS 2.5 twice daily, hypertension, hyperlipidemia, history of varicose veins, remote history of pulmonary embolism, stop Coumadin 3 years ago, GERD, parsons diverticulosis coli left more than right, status post PEG tube placement in 2016 after CVA,TUBULAR ADENOMA, right renal artery stenosis, back pain, osteoarthritis, osteopenia, depression, anxiety, obesity, remote history of diabetes mellitus not on insulin, recurrent admissions to the hospital for diarrhea, dehydration was brought in by ambulance after she was found altered, unresponsive on 07/03/2017. Vitals at the time of presentation Afebrile, heart rate varying between 36-46, blood pressure 84/50 improved to 107 /53 after normal saline bolus, saturating at 100 on 2 L. Pertinent labs WBC 5.7, hemoglobin 10.5, hematocrit 30, platelets 125 Sodium 143, potassium 3.5, BUN 22 and creatinine 1, glucose 149 ABG 7.30, 15, 32 urinalysis showed moderate leukocyte esterase, protein 100, packed bacteria. CT head showed evidence of her old right MCA infarct,urinalysis showed moderate leukocyte esterase, protein 100, packed bacteria. CT abdomen and pelvis showed a large volume of stool with stercoral colitis chest x-ray showed cardiomegaly. Altered mental status She was brought in by ambulance to the ED for altered mental status, unresponsiveness, failure to thrive, dehydration, persistent black diarrhea. According to the daughter, she was recently admitted to [facility] for lethargy, altered mental status, hypotension, diarrhea. She was given no antibiotics during her hospital stay. She was discharged from [facility] on 07/01 and since then she continued to have diarrhea/dehydration. Mental status improved progressively and currently she is at her baseline. Sinus Bradycardia Patient was in bradycardia at the time of admission, heart rate ranging in between 35-45. Troponin was negative. Telemetry tracings showed sinus bradycardia. Initially she was kept on pacer pads but as her home dose of carvedilol was stopped she remained in sinus bradycardia heart rate ranges from 50-60. She remained completely asymptomatic. Cardiology is fine to transfer this patient to general medical floor. No need to restart beta rajiv on discharge. 160 Hypotension Patient blood pressure was 80/50 at the time of admission. Improved with 2 L of normal saline bolus. SBP varying between 90-100. Hypotension most likely from diarrhea and hypovolemia, dehydration. We held her outpatient antihypertensives hydralazine, losartan, carvedilol initially. However after 48 hours her blood pressure went up to 170, restarted hydralazine 100 3 times a day and losartan. Carvedilol was held given sinus bradycardia. Patient was given 1 dose of amlodipine 10 mg today for high blood pressure. Her antihypertensives were discussed with banking supervisor and he is not planning to make any changes for now as he is thinking losartan will take some time to start affecting her blood pressure meanwhile she can have when necessary hydralazine. Acute kidney injury Creatinine 1.2 at the time of admission. Most likely prerenal from diarrhea and dehydration Received gentle hydration Creatinine improved to 1 UTI urinalysis showed moderate leukocyte esterase, protein 100, packed bacteria. Patient couldn't provide any complaints. However urine cultures positive for gram-negative rods- proteus. her positive urine culture likely represents asymptomatic bacteriuria, but she is unable to provide a reliable history and, as she was hypothermic and hypotensive on admission-she was started on IV ceftriaxone. On final culture and sensitivity results she was started on amoxicillin and she received 5 days of amoxicillin 500 mg 3 times a day. She will continue amoxicillin to complete 7 days on July 11. Nonionic anionic gap metabolic acidosis Patient has metabolic acidosis, pH 7.30, bicarbonate 15, no anionic gap Most likely from diarrhea upper GI bleed/melena Patient presented with persistent ongoing diarrhea, black colored stools. She has 4 more episodes of diarrhea in the emergency room which are guaiac-positive. patient has long-standing history of gastrointestinal issues, worked up by Dr. Belcher and Dr. Buckner in the past. Patient underwent upper endoscopy in August 2016 which was normal. she also underwent colonoscopy in now but 2016 which showed pandiverticulosis, internal and external hemorrhoids. Push enteroscopy was done during ICU admission which does not reveal any active source of bleeding. She was restarted on her home dose of Eliquis 2.5 mg twice a day. No active bleeding was noted during ICU stay. diarrhea and Stercoral colitis she has been having profuse diarrhea ongoing for months, on and off. CT abdomen showed large volume of stool within the rectum and circumferential thickening within the rectal mucosa indicating the likelihood of underlying stercoral colitis. Patient was given multiple enemas resulted in relieved of her fecal impaction. Currently her diarrhea is resolved. atrial fibrillation now in sinus rhythm eliqus restarted based on cardio nad gastro recommendtaions on 07/07/2017 Hyperlipidemia patient takes Lipitor at home however patient family refused to continue Lipitor GERD continued IV Protonix DVT prophylaxis alps/eliqus Patient is full code Tube feeds and patient is also getting oral diet and she is able to take almost 25%. Machine Tender are on board and they will calculate calorie intake. PEG tube in place Assessment/Plan: as above. C. difficile was negative. f/u stool Cultures/sensitivities were neg. Blood cultures one bottle positive for gram-positive cocci in clusters Initially was given vancomycin but later on her her blood culture was suggestive of staph coagulase and her vancomycin was discontinued. Hypokalemia Potassium 3.3, replete to 4.0 Keep magnesium at 2.0 atrial fibrillation now in sinus rhythm eliqus restarted based on cardio nad gastro recommendtaions on 07/07/2017 Hyperlipidemia patient takes Lipitor at home however patient family refused to continue Lipitor GERD continued IV Protonix DVT prophylaxis alps/eliqus Patient is full code Tube feeds PEG tube in place Assessment/Plan: .
[2017-07-04 23:00] VITALS: BP 140/60
[2017-07-05 04:36] LABS: ABSOLUTE BASOPHIL COUNT 0 /CUMM (0.0-0.2); ABSOLUTE EOSINOPHIL COUNT 0 /CUMM (0.0-0.7); ABSOLUTE GRANULOCYTE CT 2.7 /CUMM (1.4-6.5); ABSOLUTE LYMPH COUNT 1.9 /CUMM (1.2-3.4); ABSOLUTE MONOCYTE COUNT 0.5 /CUMM (0.10-0.60); BASOPHIL % 0.4 % (0.0-2.0); EOSINOPHIL % 0.9 % (0-5); HEMATOCRIT 28.7 % (37-47); MEAN CORPUSCULAR HGB 30.3 PG (27.0-31.0); MEAN CORPUSCULAR HGB CONC 33.8 G/DL (33.0-37.0); MEAN CORPUSCULAR VOLUME 89.6 FL (81.0-99.0); MEAN PLATELET VOLUME 10.8 FL (7.4-10.4); PLATELET COUNT 117 /CUMM (130-400); RBC DISTRIBUTION WIDTH 15.8 % (11.5-14.5); RED BLOOD CELL CT 3.21 /CUMM (4.20-5.40); WHITE BLOOD CELL COUNT 5.2 /CUMM (4.8-10.8)
[2017-07-05 08:00] VITALS: BP 156/60
--- NOTE | 2017-07-05 08:35 | PN- CRCU ---
Subjective HPI/Critical Care Issues: -Altered mental status -Lethargy -Hypotension -Bradycardia -Hypoglycemia -Sepsis for urological origin -Diarrhea/ stercoral colitis/fecal impaction 24 hour events Patient was seen and examined this morning. She remained lethargic but arousable without any significant complaints. Her vital signs remained stable, she remained afebrile, blood pressure ranges from 140 to 170s systolic and this morning she had her pressure of 200/68 around 10 AM. She had rectal tube having fecal matter in it no gross bleeding or melena noted. Her white cell count remained normal to 5.2, hemoglobin stable at 9.7, hematocrit at 28.7, platelet at 117. Objective Current Medications: Current Medications Sig/Renee Start time Last Medication Dose Route Stop Time Status Admin Ampicillin 1,000 MG Q8 07/05 1400 UNVr PO Ceftriaxone Sodium 1,000 MG DAILY 07/04 1300 DC 07/05 IV 1000 Dextrose/Sodium 1,000 ML Q13H 07/05 1030 CAN Chloride IV 07/05 2329 Dextrose/Sodium 1,000 ML Q10H 07/03 2100 DC 07/05 Chloride IV 0309 Famotidine 20 MG DAILY 07/05 1100 AC PO Gabapentin 100 MG Q8 07/04 1245 AC 07/05 PO 0514 Hydralazine HCl 50 MG TID 07/05 1400 AC PO Hydralazine HCl 25 MG TID 07/05 1049 DC PO Hydralazine HCl 50 MG TID 07/05 0945 DC 07/05 PO 0950 Omeprazole 40 MG DAILY AC 07/05 1030 DC PO Pantoprazole Sodium 40 MG BID 07/04 0900 DC 07/04 IV 2106 Potassium Chloride 40 MEQ ONCE ONE 07/05 0515 DC 07/05 PO 07/05 0516 0514 Sodium Bicarbonate 75 MEQ Q13H 07/05 1045 DC Dextrose/Sodium 1,000 ML IV 07/05 2344 Chloride Sodium Bicarbonate 100 MEQ Q13H 07/05 1045 CAN Dextrose/Sodium 1,000 ML IV 07/05 2344 Chloride Sodium Bicarbonate 75 MEQ Q10H 07/05 1045 AC Dextrose/Sodium 1,000 ML IV 07/05 2044 Chloride Sodium Bicarbonate 75 MEQ CONTINOUS INFUSION 07/05 1030 CAN Sodium Chloride 1,000 ML IV 07/05 2349 Sodium Phosphate 1 UNIT ONCE ONE 07/05 1045 DC MN 07/05 1046 Vancomycin HCl 1,000 MG DAILY 07/05 0900 DC 07/05 Dextrose/Water 250 ML IV 1000 Vancomycin HCl 1,000 MG ONCE ONE 07/04 1400 DC 07/04 Sodium Chloride 250 ML IV 07/04 1459 1654 Vital Signs & I&O Last 24 Hrs of Vitals and I&O: Vital Signs Date Time Temp Pulse Resp B/P B/P Pulse O2 O2 Flow FiO2 Mean Ox Delivery Rate 07/05 0950 200/68 07/05 0400 94 Room Air 07/05 0000 95 Room Air 07/04 2300 98.8 52 17 140/60 97 Room Air 07/04 2200 95 Room Air 07/04 1819 Room Air 2.0L 07/04 1702 98.3 50 23 123/93 97 Room Air Intake & Output 07/05 1600 07/05 0800 07/05 0000 Intake Total 833 1220 Output Total 185 215 Balance 648 1005 Intake, IV 743 1050 Intake, Oral 0 0 Intake, Tube 90 170 Irrigant Number 2 1 Bowel Movements Output, Urine 185 215 Patient 152 lb Weight Exam General Appearance: well developed/nourished, no apparent distress, sedated, lethargic Head: atraumatic, normal appearance Neck: normal inspection, supple Respiratory: normal breath sounds, chest non-tender Cardiovascular: edema, bradycardia Abdomen: soft, non-tender Extremities: normal inspection Results Last 24 Hrs of Lab Results: Laboratory Tests 07/05/17 0351: Anion Gap 8, Estimated GFR 59 L, Glucose 124 H, Calcium 7.8 L, Phosphorus 2.7 , Magnesium 2.1, Total Bilirubin 0.6, AST 14, ALT 21, Albumin 2.0 L, CBC w Diff MAN DIFF ORDERED, RBC 3.21 L, MCV 89.6, MCH 30.3, MCHC 33.8, RDW 15.8 H, MPV 10.8 H, Gran % 52.0, Lymphocytes % 36.7, Monocytes % 10.0 H, Eosinophils % 0.9 , Basophils % 0.4, Absolute Granulocytes 2.7, Segmented Neutrophils 68, Band Neutrophils 1, Absolute Lymphocytes 1.9, Lymphocytes 30, Monocytes 1 L, Absolute Monocytes 0.5, Absolute Eosinophils 0, Absolute Basophils 0, Platelet Estimate DECREASED, Poikilocytosis 1+, Ovalocytes 1+ Impression/Plan Impression/Plan Impression/Plan: This is a 86-year-old female with past medical history significant for right- sided MCA infarct, status post CVA, dementia since 2016, left-sided deficits, bedbound and wheelchair bound, atrial fibrillation on anticoagulation ELIQUS 2.5 twice daily, hypertension, hyperlipidemia, history of varicose veins, remote history of pulmonary embolism, stop Coumadin 3 years ago, GERD, parsons diverticulosis coli left more than right, status post PEG tube placement in 2016 after CVA,TUBULAR ADENOMA, right renal artery stenosis, back pain, osteoarthritis, osteopenia, depression, anxiety, obesity, remote history of diabetes mellitus not on insulin, recurrent admissions to the hospital for diarrhea, dehydration was brought in by ambulance after she was found altered, unresponsive on 07/03/2017. Vitals at the time of presentation Afebrile, heart rate varying between 36-46, blood pressure 84/50 improved to 107 /53 after normal saline bolus, saturating at 100 on 2 L. Pertinent labs WBC 5.7, hemoglobin 10.5, hematocrit 30, platelets 125 Sodium 143, potassium 3.5, BUN 22 and creatinine 1, glucose 149 ABG 7.30, 15, 32 urinalysis showed moderate leukocyte esterase, protein 100, packed bacteria. CT head showed evidence of her old right MCA infarct,urinalysis showed moderate leukocyte esterase, protein 100, packed bacteria. CT abdomen and pelvis showed a large volume of stool with stercoral colitis chest x-ray showed cardiomegaly. Altered mental status She was brought in by ambulance to the ED for altered mental status, unresponsiveness, failure to thrive, dehydration, persistent black diarrhea. According to the daughter, she was recently admitted to [facility] for lethargy, altered mental status, hypotension, diarrhea. She was given no antibiotics during her hospital stay. She was discharged from [facility] on 07/01 and since then she continued to have diarrhea/dehydration. * Altered Mental status most likely from diarrhea/dehydration versus bradycardia versus hypoglycemia versus hypotension from hypovolemia versus urinary tract infection versus abdominal infection. * ICU admit for close monitoring * Monitor vitals every shift * Maintain SBP above 90-100 * Avoid adequate hydration * Patient was found to be hypoglycemic at the time of admission, received 2 amp pulse of D50 after which blood sugars improved * Monitor blood sugars closely * Patient was bradycardic heart rate ranging between 40-45, pacer pads at bedside. Sinus Bradycardia Patient was in bradycardia at the time of admission, heart rate ranging in between 35-45. Troponin was negative. Overnight telemetry tracings showed sinus bradycardia. Off note patient has history of paroxysmal atrial fibrillation taking eliqus at home. Which we will still hold in anticipation of push enteroscopy on Friday. * Troponin was negative. * Continuous telemetry monitoring for now * Patient is in sinus bradycardia RATE 40-47 * At home medication carvedilol is on hold * Patient doesn't need permanent pacemaker per cardiology * Echocardiogram is still pending. Hypotension Patient blood pressure was 80/50 at the time of admission. Improved with 2 L of normal saline bolus. SBP varying between 90-100 * Hypotension most likely from diarrhea and hypovolemia, dehydration * Her blood pressure improved and now her systolic remained in the 140s to 170s with elevated blood pressure reading at 200 systolic this morning. We will restart her hydralazine with holding parameters. * Adequate hydration * Follow-up echocardiogram * Tire Cord Weaver on board * Clinical Appeals Specialist on board Acute kidney injury Resoled with IV hydration and her creatinine is 0.9 today. Sepsis of urological origin urinalysis showed moderate leukocyte esterase, protein 100, packed bacteria. Patient couldn't provide any complaints of note she had underlying dementia. However urine cultures positive for Proteus mirabilis sensitive to penicillin. We will start patient on ampicillin thousand milligrams daily 8 hours for total of 2 weeks. Patient was discussed with Jerry Whitman MD Nonionic anionic gap metabolic acidosis Patient has metabolic acidosis, pH 7.30, bicarbonate 15, no anionic gap Most likely from diarrhea -She developed hyperchloremic hypernatremia most likely due to her diarrhea and also repletion of fluids with normal saline. We will change her fluids to D5 half-normal saline with an ampule of bicarbonate and we will recheck her labs this afternoon. upper GI bleed/melena Patient presented with persistent ongoing diarrhea, black colored stools. She has 4 more episodes of diarrhea in the emergency room which are guaiac-positive. patient has long-standing history of gastrointestinal issues, worked up by Dr. Belcher and Dr. Buckner in the past. Patient underwent upper endoscopy in August 2016 which was normal. she also underwent colonoscopy in now but 2016 which showed pandiverticulosis, internal and external hemorrhoids. * Upper GI bleed with dark stools-unknown source * ICU admit * Monitor vitals every shift * Type and screen done * 2 large IV bore needles of the time * Gentle hydration * Received 2 units of blood transfusion, her H&H is stable at 9.7/28.7. We will check her CBCs daily. * Goal hemoglobin greater than 7 * Continue proton pump inhibitors but we will change it to oral. * We will hold Eliquis for now as patient would go for post endoscopy on Friday. * Guaiac all the stools * Avoid NSAIDs * Shift Manager on board * Patient would have PillCam study as outpatient if her push enteroscopy would be unrevealing. profuse diarrhea and Stercoral colitis she has been having profuse diarrhea ongoing for months, on and off. CT abdomen showed large volume of stool within the rectum and circumferential thickening within the rectal mucosa indicating the likelihood of underlying stercoral colitis. Multiple admissions in the past for constipation, stercoral colitis, fecal impaction. * Patient is oozing from her fecal impaction/Stercoral colitis and fever given her Fleet enema and if that does not improve her fecal impaction we might consider digital fecal impaction. * f/u stool Cultures/sensitivities * stool C. difficile f/u Blood cultures one bottle positive for gram-positive cocci in clusters Initially was given vancomycin but later on her her blood culture was suggestive of staph coagulase and her vancomycin was discontinued. Hypokalemia Potassium 3.5, replete to 4.0 Keep magnesium at 2.0 Tube feedings Patient was intially kept NPO and as we are not anticipating ant GI procedure till friday morning, we will start her on tube feeds per lithographic photographer apprentice recommendations and will maker her NPO tomorrow night atrial fibrillation now in sinus rhythm hold eliqus given GI bleed Hypertensionwe will restart home antihypertensives except beta blockers as her blood pressure would allow. Hyperlipidemia patient takes Lipitor at home however patient family refused to continue Lipitor GERD continue Protonix DVT prophylaxis alps given GI bleed Patient is full code Patient failed swallow evaluation 07/04/2017 -Nothing by mouth PEG tube in place
--- NOTE | 2017-07-05 08:46 | PN- Gastroenterology ---
Assessment/Plan GI Assessment/Recommendations: Assessment: Ms. Landaverde is an 86 year old female s/p CVA, afib on eliquis admitted with changes in her mental status, failure to thrive and recurrent anemia who is currentl doing relatively well from a GI perspective after receiving 2 units of PRBCs with appropriate correction of her hgb. Her hgb is down from yesterday which I suspect is secondary to equilibration rather then active bleeding as she is without any overt GI bleeding. As she has had a recent colonoscopy and endoscopy the next step in evaluation of her anemia would be a small bowel pill cam, however, due to institutional restraints that is not able to be performed as an inpatient here. It can still be pursued as an outpatient with the pill cam being placed endoscopically, but if the family is insistent on it occuring as an inpatient it may be reasonable to transfer her to a facility where it could be done. Alternatively a push enteroscopy could be performed, but this will not evaluate the entire small bowel. It may also be reasonable to consider stopping her anticoagulation which I feel the family is unlikely to be agreeable to. In any case, as she is without overt GI bleeding I don't feel she requires the ICU from a GI perspective. Recommendations: 1. Tube feeds as tolerated. 2. Follow daily cbc and transfuse as needed to maintain her hgb > 8 or as per cardiology recommendations. 3. Would discuss with cardiology about possibly discontinuing her anti- coagulation, but there are currently no absolute contraindications to this from a GI perspective considering the work up to date. 4. D/C IV protonix and put on a po ppi for gi prophylaxis 5. Discuss with family about possibly transfering her to a facility where an inpatient pill cam can be performed vs performing a diagnostic/therapeutic push enteroscopy here. Would relay to the family though that regardless of the results of a push enteroscopy a complete examination of the small bowel would still be indicated (ie a pill cam), especially if continuing the anticoagulation is desired. 6. Notify GI for signs of active bleeding 7. D/C rectal tube and considering the fecal impacation on her ct scan consideration should be given to using enemas or manual disempaction. 8. Ok to transfer the patient to the medical floor and if so desired by the family a push enteroscopy could be arranged for early next week. I will continue to follow this patient and make further recommendations based on her clinical course, results of repeat blood work, and the families wishes. Problem List: 1. Atrial fibrillation 2. GI bleed 3. Constipation 4. Stercoral ulcer of rectum 5. Symptomatic anemia 6. Altered mental status Subjective Subjective: no acute events overnight. pt without any significant diarrhea, or vomiting per nursing. Objective Vital Signs and I&Os Vital Signs Date Time Temp Pulse Resp B/P B/P Pulse O2 O2 Flow FiO2 Mean Ox Delivery Rate 07/05 0400 94 Room Air 07/05 0000 95 Room Air 07/04 2300 98.8 52 17 140/60 97 Room Air 07/04 2200 95 Room Air 07/04 1819 Room Air 2.0L 07/04 1702 98.3 50 23 123/93 97 Room Air 07/04 1209 94 Room Air Intake & Output 07/05 1600 07/05 0400 07/04 1600 07/04 0400 07/03 1600 07/03 0400 Intake Total 833 1220 1849 3441 Output Total 185 215 250 50 Balance 648 1005 1599 3391 Intake, Blood 350 Product Intake, IV 743 1050 1499 3441 Intake, Oral 0 0 0 Intake, Tube 90 170 Irrigant Number 2 1 5 2 Bowel Movements Output, Stool 50 Output, Urine 185 215 200 50 Patient 152 lb Weight Weight Bed scale Measurement Method Physical Exam General Appearance: well developed/nourished, no apparent distress, comfortable Head: atraumatic Neck: normal inspection, supple Respiratory: normal breath sounds, no respiratory distress Cardiovascular: irregularly irregular Abdomen: normal bowel sounds, soft, non-tender, PEG c/d/i Rectal: deferred Extremities: normal inspection Current Medications: Current Medications Sig/Renee Start time Last Medication Dose Route Stop Time Status Admin Atorvastatin Calcium 80 MG 1700 07/04 1700 CAN PO Ceftriaxone Sodium 1,000 MG DAILY 07/04 1300 AC 07/04 IV 1432 Dextrose/Sodium 1,000 ML Q10H 07/03 2100 AC 07/05 Chloride IV 0309 Gabapentin 100 MG Q8 07/04 1245 AC 07/05 PO 0514 Pantoprazole Sodium 40 MG BID 07/04 0900 AC 07/04 IV 2106 Potassium Chloride 40 MEQ ONCE ONE 07/05 0515 DC 07/05 PO 07/05 0516 0514 Potassium Chloride 10 MEQ Q1H 07/04 0830 DC 07/04 IV 07/04 0931 0933 Vancomycin HCl 1,000 MG ONCE ONE 07/04 1400 DC 07/04 Sodium Chloride 250 ML IV 07/04 5147 8346 Results Pertinent Lab Results: Laboratory Tests 07/05 07/04 0351 0600 Chemistry Sodium (137 - 145 mmol/L) 146 H 143 Potassium (3.5 - 5.1 mmol/L) 3.5 3.5 Chloride (98 - 107 mmol/L) 123 H 120 H Carbon Dioxide (22 - 30 mmol/L) 15 L 16 L Anion Gap (5 - 16) 8 8 BUN (7 - 17 mg/dL) 17 22 H Creatinine (0.5 - 1.0 mg/dL) 0.9 1.0 Estimated GFR (>60 ml/min) 59 L 52 L Glucose (65 - 99 mg/dL) 124 H 149 H Calcium (8.4 - 10.2 mg/dL) 7.8 L 7.8 L Phosphorus (2.5 - 4.5 mg/dL) 2.7 2.9 Magnesium (1.6 - 2.3 mg/dL) 2.1 2.2 Total Bilirubin (0.2 - 1.3 mg/dL) 0.6 1.0 AST (14 - 36 U/L) 14 17 ALT (9 - 52 U/L) 21 24 Albumin (3.5 - 5.0 g/dL) 2.0 L 2.2 L Hematology CBC w Diff MAN DIFF ORDERED MAN DIFF ORDERED WBC (4.8 - 10.8 /CUMM) 5.2 5.7 RBC (4.20 - 5.40 /CUMM) 3.21 L 3.41 L Hgb (12.0 - 16.0 G/DL) 9.7 L 10.5 L Hct (37 - 47 %) 28.7 L 30.9 L MCV (81.0 - 99.0 FL) 89.6 90.6 MCH (27.0 - 31.0 PG) 30.3 30.7 MCHC (33.0 - 37.0 G/DL) 33.8 33.9 RDW (11.5 - 14.5 %) 15.8 H 15.9 H Plt Count (130 - 400 /CUMM) 117 L 125 L MPV (7.4 - 10.4 FL) 10.8 H 11.0 H Gran % (42.2 - 75.2 %) 52.0 59.1 Lymphocytes % (20.5 - 51.1 %) 36.7 31.1 Monocytes % (1.7 - 9.3 %) 10.0 H 9.5 H Eosinophils % (0 - 5 %) 0.9 0.3 Basophils % (0.0 - 2.0 %) 0.4 0 Absolute Granulocytes (1.4 - 6.5 /CUMM) 2.7 3.4 Segmented Neutrophils (42.2 - 75.2 %) 68 55 Band Neutrophils (0.0 - 5.0 %) 1 1 Absolute Lymphocytes (1.2 - 3.4 /CUMM) 1.9 1.8 Lymphocytes (20.5 - 51.1 %) 30 40 Monocytes (1.7 - 9.3 %) 1 L 4 Absolute Monocytes (0.10 - 0.60 /CUMM) 0.5 0.5 Absolute Eosinophils (0.0 - 0.7 /CUMM) 0 0 Absolute Basophils (0.0 - 0.2 /CUMM) 0 0 Platelet Estimate (ADEQUATE) DECREASED ADEQUATE Polychromasia 1+ Poikilocytosis 1+ 3+ Ovalocytes 1+ 1+ [place] Cells 2+ Elliptocytes FEW Other Body Source Fld Total RBCs Counted (%) 100 07/04 07/04 07/03 0210 0200 2330 Chemistry Sodium (137 - 145 mmol/L) 144 Potassium (3.5 - 5.1 mmol/L) 4.0 Chloride (98 - 107 mmol/L) 119 H Carbon Dioxide (22 - 30 mmol/L) 16 L Anion Gap (5 - 16) 10 BUN (7 - 17 mg/dL) 25 H Creatinine (0.5 - 1.0 mg/dL) 1.1 H Estimated GFR (>60 ml/min) 47 L Glucose (65 - 99 mg/dL) 130 H Hemoglobin A1c (4.2 - 5.8 %) 5.6 Calcium (8.4 - 10.2 mg/dL) 7.8 L Phosphorus (2.5 - 4.5 mg/dL) 3.0 Magnesium (1.6 - 2.3 mg/dL) 2.2 Total Bilirubin (0.2 - 1.3 mg/dL) 1.2 AST (14 - 36 U/L) 20 ALT (9 - 52 U/L) 23 Troponin I (< 0.11 ng/ml) < 0.01 Albumin (3.5 - 5.0 g/dL) 2.2 L Hematology CBC w Diff NO MAN DIFF REQ WBC (4.8 - 10.8 /CUMM) 7.2 RBC (4.20 - 5.40 /CUMM) 3.51 L Hgb (12.0 - 16.0 G/DL) 10.8 L Hct (37 - 47 %) 31.9 L MCV (81.0 - 99.0 FL) 90.8 MCH (27.0 - 31.0 PG) 30.7 MCHC (33.0 - 37.0 G/DL) 33.8 RDW (11.5 - 14.5 %) 14.9 H Plt Count (130 - 400 /CUMM) 113 L MPV (7.4 - 10.4 FL) 11.2 H Gran % (42.2 - 75.2 %) 60.7 Lymphocytes % (20.5 - 51.1 %) 27.5 Monocytes % (1.7 - 9.3 %) 11.4 H Eosinophils % (0 - 5 %) 0.1 Basophils % (0.0 - 2.0 %) 0.3 Absolute Granulocytes (1.4 - 6.5 /CUMM) 4.4 Absolute Lymphocytes (1.2 - 3.4 /CUMM) 2.0 Absolute Monocytes (0.10 - 0.60 /CUMM) 0.8 H Absolute Eosinophils (0.0 - 0.7 /CUMM) 0 Absolute Basophils (0.0 - 0.2 /CUMM) 0 07/03 07/03 2200 1602 Chemistry Sodium Cancelled Potassium Cancelled Chloride Cancelled Carbon Dioxide Cancelled Anion Gap Cancelled BUN Cancelled Creatinine Cancelled Glucose Cancelled Lactic Acid Cancelled Calcium Cancelled Phosphorus Cancelled Magnesium Cancelled Total Bilirubin Cancelled AST Cancelled ALT Cancelled Albumin Cancelled Hematology CBC w Diff Cancelled WBC Cancelled RBC Cancelled Hgb Cancelled Hct Cancelled MCV Cancelled MCH Cancelled MCHC Cancelled RDW Cancelled Plt Count Cancelled MPV Cancelled 07/03 07/03 1555 1550 Blood Gas pH (7.35 - 7.45 PH) 7.30 *L pCO2 (35 - 45 TORR) 32 L pO2 (80 - 100 TORR) 107 H HCO3 (21 - 28 MEQ/L) 15 L ABG O2 Sat (Measured) (>96.0 %) 97.0 P-50 (Temp Corrected) N Carboxyhemoglobin (1.5 - 5.0 %) 0.2 L O2 Concentration % 2.5L Temperature (97.0 - 100.0 FARH) 97.1 O2 Delivery Method NC Miscellaneous Phlebotomy Draw Site RIGHT RADIAL Urines Urine Color (YEL,AMB,STR) YEL Urine Clarity (CLEAR) CLDY H Urine pH (5.0 - 8.0) 8.5 H Ur Specific Anita (1.001 - 1.035) 1.020 Urine Protein (NEG,<30 MG/DL) 100 H Urine Ketones (NEG) NEG Urine Nitrite (NEG) NEG Urine Bilirubin (NEG) NEG Urine Urobilinogen (0.1 - 1.0 EU/dl) 0.2 Ur Leukocyte Esterase (NEG) MOD H Ur Microscopic SEDIMENT EXAMINED Urine RBC (0 - 5 /HPF) 1-3 Urine WBC (0 - 2 /HPF) > 75 H Ur Epithelial Cells (NONE,FEW) RARE Urine Bacteria (NEG/NONE) PACKD H Urine Hemoglobin (NEG) TRACE-INTACT Urine Glucose (N MG/DL) NEG 07/03 07/03 07/03 1355 1315 1302 Chemistry Sodium (137 - 145 mmol/L) 140 Potassium (3.5 - 5.1 mmol/L) 3.1 L Chloride (98 - 107 mmol/L) 115 H Carbon Dioxide (22 - 30 mmol/L) 18 L Anion Gap (5 - 16) 7 BUN (7 - 17 mg/dL) 27 H Creatinine (0.5 - 1.0 mg/dL) 1.2 H Estimated GFR (>60 ml/min) 42 L BUN/Creatinine Ratio (7 - 25 %) 22.5 Glucose (65 - 99 mg/dL) 185 H Lactic Acid (0.7 - 2.1 mmol/L) 1.5 Calcium (8.4 - 10.2 mg/dL) 7.8 L Phosphorus (2.5 - 4.5 mg/dL) 3.0 Magnesium (1.6 - 2.3 mg/dL) 1.8 Total Bilirubin (0.2 - 1.3 mg/dL) 0.6 AST (14 - 36 U/L) 17 ALT (9 - 52 U/L) 18 Alkaline Phosphatase (<127 U/L) 65 Troponin I (< 0.11 ng/ml) < 0.01 Pmc-S-Xniuazfhtph Pept (<125 pg/mL) 1900 H Total Protein (6.3 - 8.2 g/dL) 4.1 L Albumin (3.5 - 5.0 g/dL) 1.9 L Globulin (1.9 - 4.2 gm/dL) 2.2 Albumin/Globulin Ratio (1.1 - 2.2 %) 0.9 L Free T4 (0.85 - 1.93 ng/dL) 1.62 Total T3 (0.97 - 1.69 ng/mL) 0.71 L TSH &T3 &Free T4 Intrp (0.270 - 4.20 uIU/mL) 2.410 Coagulation PT (9.4 - 12.5 SEC) 15.1 H INR (0.90 - 1.19) 1.38 H APTT (25 - 37 SEC) 31 Hematology CBC w Diff NO MAN DIFF REQ WBC (4.8 - 10.8 /CUMM) 4.8 RBC (4.20 - 5.40 /CUMM) 2.36 L Hgb (12.0 - 16.0 G/DL) 7.3 *L Hct (37 - 47 %) 21.5 L MCV (81.0 - 99.0 FL) 91.4 MCH (27.0 - 31.0 PG) 30.9 MCHC (33.0 - 37.0 G/DL) 33.8 RDW (11.5 - 14.5 %) 15.9 H Plt Count (130 - 400 /CUMM) 120 L MPV (7.4 - 10.4 FL) 11.8 H Gran % (42.2 - 75.2 %) 61.3 Lymphocytes % (20.5 - 51.1 %) 34.2 Monocytes % (1.7 - 9.3 %) 4.2 Eosinophils % (0 - 5 %) 0.1 Basophils % (0.0 - 2.0 %) 0.2 Absolute Granulocytes (1.4 - 6.5 /CUMM) 3.0 Absolute Lymphocytes (1.2 - 3.4 /CUMM) 1.7 Absolute Monocytes (0.10 - 0.60 /CUMM) 0.2 Absolute Eosinophils (0.0 - 0.7 /CUMM) 0 Absolute Basophils (0.0 - 0.2 /CUMM) 0 Serology Lyme Disease Antibody (RATIO) 0.09 Toxicology Urine Opiates Screen (>2000 NG/ML) < 100 Methadone Screen (>300 NG/ML) < 40 Barbiturate Screen (>200 NG/ML) < 60 Ur Phencyclidine Scrn (>25 NG/ML) < 6.00 Amphetamines Screen (>1000 NG/ML) 232 U Benzodiazepines Scrn (>200 NG/ML) < 85 Urine Cocaine Screen (>300 NG/ML) < 50 Urine Cannabis Screen (>50 NG/ML) < 5.00
--- NOTE | 2017-07-05 10:27 | PN- Pulmonary ---
Subjective HPI/Critical Care Issues: She is awake alert comfortable on room air she continues to have copious diarrhea hemodynamics are improved she is developing hypernatremia hyperchloremia secondary to diarrhea and normal saline. On cultures positive for Proteus blood cultures are positive for GPC is likely coag-negative staph Objective Current Medications: Current Medications Sig/Renee Start time Last Medication Dose Route Stop Time Status Admin Atorvastatin Calcium 80 MG 1700 07/04 1700 CAN PO Ceftriaxone Sodium 1,000 MG DAILY 07/04 1300 AC 07/04 IV 1432 Dextrose/Sodium 1,000 ML Q10H 07/03 2100 AC 07/05 Chloride IV 0309 Gabapentin 100 MG Q8 07/04 1245 AC 07/05 PO 0514 Hydralazine HCl 50 MG TID 07/05 0945 AC PO Pantoprazole Sodium 40 MG BID 07/04 0900 AC 07/04 IV 2106 Potassium Chloride 40 MEQ ONCE ONE 07/05 0515 DC 07/05 PO 07/05 0516 0514 Vancomycin HCl 1,000 MG DAILY 07/05 0900 AC Dextrose/Water 250 ML IV Vancomycin HCl 1,000 MG ONCE ONE 07/04 1400 DC 07/04 Sodium Chloride 250 ML IV 07/04 1459 1654 Vital Signs & I&O Last 24 Hrs of Vitals and I&O: Vital Signs Date Time Temp Pulse Resp B/P B/P Pulse O2 O2 Flow FiO2 Mean Ox Delivery Rate 07/05 0400 94 Room Air 07/05 0000 95 Room Air 07/04 2300 98.8 52 17 140/60 97 Room Air 07/04 2200 95 Room Air 07/04 1819 Room Air 2.0L 07/04 1702 98.3 50 23 123/93 97 Room Air 07/04 1209 94 Room Air Intake & Output 07/05 1600 07/05 0800 07/05 0000 Intake Total 833 1220 Output Total 185 215 Balance 648 1005 Intake, IV 743 1050 Intake, Oral 0 0 Intake, Tube 90 170 Irrigant Number 2 1 Bowel Movements Output, Urine 185 215 Air oxygen saturation 94% exam for chest shows diminished breath sounds cardiac exam shows regular S1 and S2 abdomen is soft nontender Impression/Plan Impression/Plan Impression/Plan: 86-year-old presenting with stercoral colitis bacteremia and GI acute blood loss. She is developed hyperchloremia hypernatremia secondary to volume repletion with normal saline and diarrhea. antibiotics per infectious disease. Recommendations: Continue antibiotics per infectious disease follow-up GI recommendations. Change IV fluids to D5 1 half normal with 1 amp of bicarbonate at 100 mL an hour and repeat labs after 1 L. Continue close monitoring of laboratory data
[2017-07-05 16:00] VITALS: BP 154/70
--- NOTE | 2017-07-05 16:37 | PN- Cardiology ---
Subjective Subjective: * No complaints. * sinus rhythm * severe hypertension Objective Vital Signs and I&Os Vital Signs Date Time Temp Pulse Resp B/P B/P Pulse O2 O2 Flow FiO2 Mean Ox Delivery Rate 07/05 1604 48 173/75 07/05 0950 200/68 07/05 0400 94 Room Air 07/05 0000 95 Room Air 07/04 2300 98.8 52 17 140/60 97 Room Air 07/04 2200 95 Room Air 07/04 1819 Room Air 2.0L 07/04 1702 98.3 50 23 123/93 97 Room Air Intake & Output 07/05 1600 07/05 0800 07/05 0000 07/04 1600 07/04 0800 07/04 0000 Intake Total 833 6541 972 8074 3441 Output Total 185 215 150 100 50 Balance 648 1005 837 752 7747 Intake, Blood 350 Product Intake, IV 743 1050 770 047 8789 Intake, Oral 0 0 0 Intake, Tube 90 170 Irrigant Number 2 1 4 1 2 Bowel Movements Output, Stool 50 Output, Urine 185 215 100 100 50 Patient 152 lb 152 lb Weight Weight Bed scale Measurement Method Physical Exam: General: WD/ overweight female in NAD; alert and oriented x 3 Neck: no JVD, no carotid bruit Heart: RRR with 2/6 systolic murmur Lungs: clear bilaterally Extremities: no edema Assessment/Plan Assessment/Plan * Patient is hypertensive with borderline low heart rate. Increase hydralazine to 100mg TID Continue telemetry? Yes
[2017-07-06 00:05] VITALS: BP 124/54
[2017-07-06 04:36] LABS: ABSOLUTE BASOPHIL COUNT 0 /CUMM (0.0-0.2); ABSOLUTE EOSINOPHIL COUNT 0.1 /CUMM (0.0-0.7); ABSOLUTE GRANULOCYTE CT 2.8 /CUMM (1.4-6.5); ABSOLUTE LYMPH COUNT 1.9 /CUMM (1.2-3.4); ABSOLUTE MONOCYTE COUNT 0.5 /CUMM (0.10-0.60); BASOPHIL % 0.4 % (0.0-2.0); EOSINOPHIL % 1.9 % (0-5); GRANULOCYTE % 53.1 % (42.2-75.2); MEAN CORPUSCULAR HGB 30.2 PG (27.0-31.0); MEAN CORPUSCULAR HGB CONC 33.6 G/DL (33.0-37.0); MEAN CORPUSCULAR VOLUME 89.9 FL (81.0-99.0); MEAN PLATELET VOLUME 11.2 FL (7.4-10.4); PLATELET COUNT 133 /CUMM (130-400); RBC DISTRIBUTION WIDTH 15.9 % (11.5-14.5); RED BLOOD CELL CT 3.34 /CUMM (4.20-5.40); WHITE BLOOD CELL COUNT 5.3 /CUMM (4.8-10.8)
--- NOTE | 2017-07-06 06:54 | PN- Resident CRCU ---
Subjective HPI/CRCU Issues: She was more awake this morning. Did not have any new concerns. Did not have any chest pain, shortness of breath. She was concerned about her back pain. Contiunes to have diarrhea, but reduced in frequency. Possible enteroscopy as per medical notes from 07/05/17. ICU issues: -Altered mental status -Lethargy -Hypotension -Bradycardia -Hypoglycemia -Sepsis for urological origin -Diarrhea/ stercoral colitis/fecal impaction 24 Hour Events: MAXIMUM TEMPERATURE 99.2, heart rate in the range of 50-66, normal sinus rhythm, first-degree AV block, respiratory rate in the urine of 13-16 B SBP 117-167 DBP 53-76 Pulse ox 96-99% on room air. Received D5 half normal saline with 75 mEq sodium bicarbonate Urine output stayed in the range of 30-40 mL an hour. Total input in the last 24 hr- 3117 mL, output 795 mL Total balance to date 7500 mL, output 1495 mL. Objective Vital Signs & I&O Last 8 Hrs of Vitals and I&O: Vital Signs Date Time Temp Pulse Resp B/P B/P Pulse O2 O2 Flow FiO2 Mean Ox Delivery Rate 07/06 0800 96 Room Air Room Air 07/06 0800 97.8 51 18 182/68 96 Room Air Room Air 07/06 0746 51 182/68 Exam General Appearance: alert Other Physical Findings: General Exam: AAOx1, No acute distress, Skin: No rashes, no breakdown; HEENT: PERRLA, EOMI;Neck: Supple, No JVD; No cervical lymphadenopathy;CVS: Reg Rate, Normal S1,S2, No MGR;Resp: Normal air entry, b/l rales, and ronchi; Abdomen: Soft, No tenderness, Normal Bowel Sounds, PEG tube in place, catheter in place; Neuro: Normal Speech, Strength 5/5 b/l x 4 extremities, Sensation intact, CN III-XII NL, Reflexes 2+;Extremities: No cyanosis, no pedal edema 1+ Current Medications: Current Medications Sig/Renee Start time Last Medication Dose Route Stop Time Status Admin Amoxicillin 500 MG TID 07/06 1400 AC 07/06 PO 1320 Ampicillin 1,000 MG Q8 07/05 1400 DC 07/06 PO 0538 Dextrose/Sodium 1,000 ML Q13H 07/06 0130 DC 07/06 Chloride IV 0126 Famotidine 20 MG DAILY 07/05 1100 AC 07/06 PO 0746 Gabapentin 100 MG Q8 07/04 1245 AC 07/06 PO 1544 Hydralazine HCl 100 MG TID 07/05 2100 AC 07/06 PO 1316 Hydralazine HCl 50 MG TID 07/05 1400 DC 07/05 PO 1604 Melatonin 5 MG AT BEDTIME 07/05 2100 AC 07/05 PO 2149 Potassium Chloride 40 MEQ ONCE ONE 07/06 0800 DC 07/06 PO 07/06 0801 0758 Potassium Chloride 40 MEQ ONCE ONE 07/06 0645 CAN PO 07/06 0646 Sertraline HCl 50 MG DAILY 07/05 1753 AC 07/06 PO 0747 Sodium Bicarbonate 50 MEQ ONCE ONE 07/06 1200 AC 07/06 Sodium Chloride 1,000 ML IV 07/07 0119 1352 Sodium Bicarbonate 75 MEQ Q10H 07/05 1045 DC 07/05 Dextrose/Sodium 1,000 ML IV 07/05 2044 1315 Chloride Impression/Plan Impression/Problem List Impression: Ms Landaverde is a 86-year-old woman with PMHx of significant for right-sided MCA infarct, status post CVA, dementia since 2015, left-sided deficits, bedbound and wheelchair bound, atrial fibrillation on anticoagulation ELIQUS 2.5 twice daily, hypertension, hyperlipidemia, history of varicose veins, remote history of pulmonary embolism, stoped Coumadin 3 years ago, GERD, parsons diverticulosis coli left more than right, status post PEG tube placement in 2015 after CVA,TUBULAR ADENOMA, right renal artery stenosis, back pain, osteoarthritis, osteopenia, depression, anxiety, obesity, remote history of diabetes mellitus not on insulin , recurrent admissions to the hospital for diarrhea, dehydration was brought in by ambulance after she was found altered, unresponsive on 07/03/2017. Pertinent labs in the last 24 hrs: WBC 7.2 (07/03/17)-->5.3 (07/06/17) Hemoglobin 7.3(07/03/17)-->10.1(07/06/17) platelets 120(07/03/17)-->133(07/06/17) Sodium 145, Potassium 3.8 (07/03/17)-->3.8(07/06/17) Sr Ceatinine 1.0(07/03/17)-->0.8(07/06/17) ABG 7.30, pCO2 32, pO2 107 UA revealed moderate leukocyte esterase, protein 100, packed bacteria. UC (07/03/17) revealed growth of Proteus. Sensitive to Ampi, Cefazolin, Augmentin,Cipro, Gent. UC (07/05/17) revealed growth of GNR. CT head showed evidence of her old right MCA infarct,urinalysis showed moderate leukocyte esterase, protein 100, packed bacteria. CT abdomen and pelvis showed a large volume of stool with stercoral colitis chest x-ray showed cardiomegaly. Below is the plan: #1 Altered mental status- She was brought in by ambulance to the ED for altered mental status, unresponsiveness, failure to thrive, dehydration, persistent black diarrhea. According to the daughter, she was recently admitted to [facility] for lethargy, altered mental status, hypotension, diarrhea. She was given no antibiotics during her hospital stay. She was discharged from [facility] on 07/01/2017 and since then she continued to have diarrhea/dehydration. * Altered Mental status most likely from diarrhea/dehydration versus bradycardia versus hypoglycemia versus hypotension from hypovolemia versus urinary tract infection versus abdominal infection. * Continue to monitor in ICU, and can downgrade to telemetry. Would check with the attending int he am. * Monitor vitals every shift * Patient was found to be hypoglycemic at the time of admission, received 2 amp pulse of D50 after which blood sugars improved * Monitor blood sugars closely * Patient was bradycardic heart rate ranging between 40-45, pacer pads at bedside. #2 Sinus Bradycardia- Patient was in bradycardia at the time of admission, heart rate ranging in between 35-45. Troponin was negative. Overnight telemetry tracings showed sinus bradycardia. Off note patient has history of paroxysmal atrial fibrillation taking eliqus at home. Which we will still hold in anticipation of push enteroscopy on Friday, as per the primary team. * Troponin was negative. * Continuous telemetry monitoring for now * At home medication carvedilol is on hold * Patient doesn't need permanent pacemaker per cardiology * Echocardiogram is still pending. #3 Hypotension-Patient blood pressure was 80/50 at the time of admission. Improved with 2 L of normal saline bolus. SBP varying between 90-100 * Hypotension most likely from diarrhea and hypovolemia, dehydration * Her blood pressure improved and now her systolic remained elevated. We will restart her hydralazine 100 mg TID. * Adequate hydration * Follow-up echocardiogram * Pigskin Trimmer, Dr Anthony advising. * Science Job Titles on board #3 Acute kidney injury- Resoled with IV hydration and her creatinine is 0.9 today. #4 Sepsis of urological origin- urinalysis showed moderate leukocyte esterase, protein 100, packed bacteria. Patient couldn't provide any complaints of note she had underlying dementia. However urine cultures positive for Proteus mirabilis sensitive to penicillin. We will start patient on Amoxicillin 500mg q8. #5 metabolic acidosis- Patient has metabolic acidosis, pH 7.30, bicarbonate 15, no anionic gap Most likely from diarrhea.She developed hyperchloremic hypernatremia most likely due to her diarrhea and also repletion of fluids with normal saline. We will change her fluids to D5 half-normal saline with an ampule of bicarbonate, as per Dr. Brady. #6 upper GI bleed/melena- Patient presented with persistent ongoing diarrhea, black colored stools. She has 4 more episodes of diarrhea in the emergency room which are guaiac-positive. patient has long-standing history of gastrointestinal issues, worked up by Dr. Belcher and Dr. Buckner in the past. Patient underwent upper endoscopy in August 2016 which was normal. she also underwent colonoscopy in now but 2016 which showed pandiverticulosis, internal and external hemorrhoids. * Upper GI bleed with dark stools-unknown source * Monitor vitals every shift * Type and screen done * 2 large IV bore needles of the time * Gentle hydration * Received 2 units of blood transfusion, her H&H is stable at 10.1. We will check her CBCs daily. * Goal hemoglobin greater than 7 * Continue proton pump inhibitors but we will change it to oral. * We will hold Eliquis for now as patient would go for post endoscopy on Friday. * Guaiac all the stools * Avoid NSAIDs * Pool Table Operator on board * Patient would have PillCam study as outpatient if her push enteroscopy would be unrevealing. #7 profuse diarrhea and Stercoral colitis- she has been having profuse diarrhea ongoing for months, on and off. CT abdomen showed large volume of stool within the rectum and circumferential thickening within the rectal mucosa indicating the likelihood of underlying stercoral colitis. Multiple admissions in the past for constipation, stercoral colitis, fecal impaction. * Patient is oozing from her fecal impaction/Stercoral colitis and fever given her Fleet enema and if that does not improve her fecal impaction we might consider digital fecal impaction. * f/u stool Cultures/sensitivities * stool C. difficile f/u. #8 Blood cultures one bottle positive for gram-positive cocci in clusters Initially was given vancomycin but later on her her blood culture was suggestive of staph coagulase and her vancomycin was discontinued. #9Hypokalemia Potassium 3.5, replete to 4.0 Keep magnesium at 2.0 #10Tube feedings - Patient was intially kept NPO and as we are not anticipating ant GI procedure till friday morning, we will start her on tube feeds per log processor operator recommendations and will maker her NPO tonight for push enteroscopy. #11atrial fibrillation now in sinus rhythm hold eliqus given GI bleed Hypertensionwe will restart home antihypertensives except beta blockers as her blood pressure would allow. Hyperlipidemia patient takes Lipitor at home however patient family refused to continue Lipitor GERD continue Famtidine. DVT prophylaxis alps given GI bleed Patient is full code Patient failed swallow evaluation 07/04/2017 -Nothing by mouth Tube feeds. PEG tube in place Problem List: 1. Hypotension 2. S/P percutaneous endoscopic gastrostomy (PEG) tube placement 3. Thrombocytopenia 4. Symptomatic anemia 5. Altered mental status 6. Stercoral ulcer of rectum 7. Colitis Pain Ratin Tomorrow's Labs & Rationales: cbc icu bundle. Plan DVT/Prophylaxis: mechanical
[2017-07-06 08:00] VITALS: BP 182/68
--- NOTE | 2017-07-06 09:27 | PN- Infect Dx ---
Subjective Subjective: Afebrile without complaints Objective Last 24 Hrs of Vital Signs/I&O Vital Signs Date Time Temp Pulse Resp B/P B/P Pulse O2 O2 Flow FiO2 Mean Ox Delivery Rate 07/06 0746 51 182/68 07/06 0005 98.7 55 18 124/54 98 Room Air 07/05 2149 62 162/67 07/05 1604 48 173/75 07/05 1600 98.6 50 10 154/70 97 Room Air Room Air 07/05 1600 95 Room Air Room Air 07/05 1200 95 Room Air Room Air 07/05 0950 200/68 Intake & Output 07/06 1600 07/06 0800 07/06 0000 Intake Total 1075 1075 Output Total 250 245 Balance 825 830 Intake, IV 650 800 Intake, Other 30 Intake, Tube 195 75 Feeding Intake, Tube 200 200 Irrigant Number 2 Bowel Movements Output, Urine 250 245 Physical Exam Other Physical Findings: She appears comfortable in no acute distress Lungs are clear Heart regular rhythm with no murmur Abdomen is soft, nontender with positive bowel sounds Back questionable CVA tenderness Extremities no cyanosis, clubbing or edema Arredondo catheter remains in place Results Last 24 Hours of Lab Results: Laboratory Tests 07/06 07/05 0350 1845 Chemistry Sodium (137 - 145 mmol/L) 145 144 Potassium (3.5 - 5.1 mmol/L) 3.8 3.9 Chloride (98 - 107 mmol/L) 120 H 118 H Carbon Dioxide (22 - 30 mmol/L) 17 L 19 L Anion Gap (5 - 16) 9 7 BUN (7 - 17 mg/dL) 15 15 Creatinine (0.5 - 1.0 mg/dL) 0.8 0.9 Estimated GFR (>60 ml/min) > 60 59 L BUN/Creatinine Ratio (7 - 25 %) 16.7 Glucose (65 - 99 mg/dL) 130 H Calcium (8.4 - 10.2 mg/dL) 7.8 L Phosphorus (2.5 - 4.5 mg/dL) 2.6 Magnesium (1.6 - 2.3 mg/dL) 1.9 Total Bilirubin (0.2 - 1.3 mg/dL) 0.8 AST (14 - 36 U/L) 16 ALT (9 - 52 U/L) 18 Albumin (3.5 - 5.0 g/dL) 2.0 L Hematology CBC w Diff NO MAN DIFF REQ WBC (4.8 - 10.8 /CUMM) 5.3 RBC (4.20 - 5.40 /CUMM) 3.34 L Hgb (12.0 - 16.0 G/DL) 10.1 L Hct (37 - 47 %) 30.0 L MCV (81.0 - 99.0 FL) 89.9 MCH (27.0 - 31.0 PG) 30.2 MCHC (33.0 - 37.0 G/DL) 33.6 RDW (11.5 - 14.5 %) 15.9 H Plt Count (130 - 400 /CUMM) 133 MPV (7.4 - 10.4 FL) 11.2 H Gran % (42.2 - 75.2 %) 53.1 Lymphocytes % (20.5 - 51.1 %) 35.2 Monocytes % (1.7 - 9.3 %) 9.4 H Eosinophils % (0 - 5 %) 1.9 Basophils % (0.0 - 2.0 %) 0.4 Absolute Granulocytes (1.4 - 6.5 /CUMM) 2.8 Absolute Lymphocytes (1.2 - 3.4 /CUMM) 1.9 Absolute Monocytes (0.10 - 0.60 /CUMM) 0.5 Absolute Eosinophils (0.0 - 0.7 /CUMM) 0.1 Absolute Basophils (0.0 - 0.2 /CUMM) 0 Last 24 Hours of Klaus Results: Blood cultures 2 July 03 positive for coag negative Staph Urine culture July 03 greater than 100,000 colonies of Proteus resistant to Nitrofurantoin Stool culture July 03 mixed fabiano Assessment/Plan ID Impression: Stable, with temperatures and white blood cell count remaining normal, on oral Ampicillin for a Proteus UTI in the setting of initial hypothermic and transient hypotension, though suspect that the positive urine culture may just represent asymptomatic bacteriuria. Her positive blood culture was identified as coag negative Staph, with a second set also positive, but, as she is a difficult stick and has no obvious source for the coag-negative Staph, suspect these represent contaminants. She continues to have loose, guaiac positive stool, but her H&H has remained stable since her blood transfusions. The CT scan did suggest stercoral colitis, suggesting a fecal impaction. Suggestion: 1. Ensure that she does not have a fecal impaction 2. Further evaluation of her GI bleed per GI 3. Change Ampicillin to Amoxicillin 500 mg p.o. every 8 hours
--- NOTE | 2017-07-06 09:53 | PN- Cardiology ---
Subjective Subjective: * Patient is awake and does not express any complaints. * BP remains elevated but is coming down * sinus rhythm Objective Vital Signs and I&Os Vital Signs Date Time Temp Pulse Resp B/P B/P Pulse O2 O2 Flow FiO2 Mean Ox Delivery Rate 07/06 0800 96 Room Air Room Air 07/06 0800 97.8 51 18 182/68 96 Room Air Room Air 07/06 0746 51 182/68 07/06 0005 98.7 55 18 124/54 98 Room Air 07/05 2149 62 162/67 07/05 1604 48 173/75 07/05 1600 98.6 50 10 154/70 97 Room Air Room Air 07/05 1600 95 Room Air Room Air 07/05 1200 95 Room Air Room Air Intake & Output 07/06 1600 07/06 0800 07/06 0000 07/05 1600 07/05 0800 07/05 0000 Intake Total 1075 1075 874 806 0551 Output Total 250 245 300 185 215 Balance 825 830 804 968 8023 Intake, IV 650 800 408 674 8438 Intake, Oral 0 0 Intake, Other 30 Intake, Tube 195 75 Feeding Intake, Tube 200 200 100 90 170 Irrigant Number 2 2 1 Bowel Movements Output, Stool 25 Output, Urine 250 245 275 185 215 Patient 152 lb Weight Physical Exam: General: WD/ overweight female in NAD; alert and oriented x 3 Neck: no JVD, no carotid bruit Heart: RRR with 2/6 systolic murmur Lungs: clear bilaterally Extremities: no edema Assessment/Plan Assessment/Plan * Patient is hypertensive with borderline low heart rate. Continue hydralazine at 100mg TID. Continue telemetry? Yes
--- NOTE | 2017-07-06 10:34 | PN- Pulmonary ---
Subjective HPI/Critical Care Issues: Patient has no complaints remains hemodynamically stable without need for further transfusion she continues to have diarrhea Objective Current Medications: Current Medications Sig/Renee Start time Last Medication Dose Route Stop Time Status Admin Amoxicillin 500 MG TID 07/06 1400 AC PO Ampicillin 1,000 MG Q8 07/05 1400 DC 07/06 PO 0538 Ceftriaxone Sodium 1,000 MG DAILY 07/04 1300 DC 07/05 IV 1000 Dextrose/Sodium 1,000 ML Q13H 07/06 0130 AC 07/06 Chloride IV 0126 Dextrose/Sodium 1,000 ML Q10H 07/03 2100 DC 07/05 Chloride IV 0309 Famotidine 20 MG DAILY 07/05 1100 AC 07/06 PO 0746 Gabapentin 100 MG Q8 07/04 1245 AC 07/06 PO 0538 Hydralazine HCl 100 MG TID 07/05 2100 AC 07/06 PO 0746 Hydralazine HCl 50 MG TID 07/05 1400 DC 07/05 PO 1604 Hydralazine HCl 25 MG TID 07/05 1049 DC PO Hydralazine HCl 50 MG TID 07/05 0945 DC 07/05 PO 0950 Melatonin 5 MG AT BEDTIME 07/05 2100 AC 07/05 PO 2149 Omeprazole 40 MG DAILY AC 07/05 1030 DC PO Potassium Chloride 40 MEQ ONCE ONE 07/06 0800 DC 07/06 PO 07/06 0801 0758 Potassium Chloride 40 MEQ ONCE ONE 07/06 0645 CAN PO 07/06 0646 Sertraline HCl 50 MG DAILY 07/05 1753 AC 07/06 PO 0747 Sodium Bicarbonate 75 MEQ Q13H 07/05 1045 DC Dextrose/Sodium 1,000 ML IV 07/05 2344 Chloride Sodium Bicarbonate 100 MEQ Q13H 07/05 1045 CAN Dextrose/Sodium 1,000 ML IV 07/05 2344 Chloride Sodium Bicarbonate 75 MEQ Q10H 07/05 1045 DC 07/05 Dextrose/Sodium 1,000 ML IV 07/05 2044 1315 Chloride Sodium Bicarbonate 75 MEQ CONTINOUS INFUSION 07/05 1030 CAN Sodium Chloride 1,000 ML IV 07/05 2349 Sodium Phosphate 1 UNIT ONCE ONE 07/05 1045 DC 07/05 LA 07/05 1046 1355 Vancomycin HCl 1,000 MG DAILY 07/05 0900 DC 07/05 Dextrose/Water 250 ML IV 1000 Vital Signs & I&O Last 24 Hrs of Vitals and I&O: Vital Signs Date Time Temp Pulse Resp B/P B/P Pulse O2 O2 Flow FiO2 Mean Ox Delivery Rate 07/06 0800 96 Room Air Room Air 07/06 0800 97.8 51 18 182/68 96 Room Air Room Air 07/06 0746 51 182/68 07/06 0005 98.7 55 18 124/54 98 Room Air 07/05 2149 62 162/67 07/05 1604 48 173/75 07/05 1600 98.6 50 10 154/70 97 Room Air Room Air 07/05 1600 95 Room Air Room Air 07/05 1200 95 Room Air Room Air Intake & Output 07/06 1600 07/06 0800 07/06 0000 Intake Total 1075 1075 Output Total 250 245 Balance 825 830 Intake, IV 650 800 Intake, Other 30 Intake, Tube 195 75 Feeding Intake, Tube 200 200 Irrigant Number 2 Bowel Movements Output, Urine 250 245 Her oxygen saturation is normal temperature shows clear lung guzman abdomen is soft nontender Impression/Plan Impression/Plan Impression/Plan: 86-year-old with fecal impaction GI bleed is starting to have some formed stool remains hemodynamically stable without need for further transfusion. The abnormalities or slowly correcting Recommendations: Continue antibiotics per infectious disease f Change IV fluids to D5 1 half normal with 1 amp of bicarbonate at 100 mL an hour for 1 L GI reevaluation regarding persistent diarrhea.
[2017-07-06 16:00] VITALS: BP 156/70
[2017-07-06 23:56] VITALS: BP 165/73
[2017-07-07 06:40] LABS: ABSOLUTE BASOPHIL COUNT 0 /CUMM (0.0-0.2); ABSOLUTE EOSINOPHIL COUNT 0.2 /CUMM (0.0-0.7); ABSOLUTE GRANULOCYTE CT 4.2 /CUMM (1.4-6.5); ABSOLUTE LYMPH COUNT 1.6 /CUMM (1.2-3.4); ABSOLUTE MONOCYTE COUNT 0.5 /CUMM (0.10-0.60); BASOPHIL % 0.2 % (0.0-2.0); EOSINOPHIL % 2.5 % (0-5); GRANULOCYTE % 64.4 % (42.2-75.2); HEMATOCRIT 30.4 % (37-47); MEAN CORPUSCULAR HGB 30.2 PG (27.0-31.0); MEAN CORPUSCULAR HGB CONC 33.7 G/DL (33.0-37.0); MEAN CORPUSCULAR VOLUME 89.6 FL (81.0-99.0); MEAN PLATELET VOLUME 10.5 FL (7.4-10.4); PLATELET COUNT 150 /CUMM (130-400); RBC DISTRIBUTION WIDTH 15.6 % (11.5-14.5); WHITE BLOOD CELL COUNT 6.5 /CUMM (4.8-10.8)
--- NOTE | 2017-07-07 07:20 | PN- CRCU ---
Gi Perez 07/07/17 0719: Subjective HPI/Critical Care Issues: Altered mental status -Lethargy -Hypotension -Bradycardia -Hypoglycemia -Sepsis for urological origin -Diarrhea/ stercoral colitis/fecal impaction 24 hour events Patient was seen and examined this morning. She was lying comfortably in bed without any complaints. She had received IV antihypertensives overnight due to high blood pressure systolic in the 180s. She still had persistent diarrhea and was given Fleet enema on Friday but didn't eat her disimpaction. Patient is scheduled for postarthroscopy today. Objective Current Medications: Current Medications Sig/Renee Start time Last Medication Dose Route Stop Time Status Admin Amoxicillin 500 MG TID 07/06 1400 AC 07/07 PO 0802 Ampicillin 1,000 MG Q8 07/05 1400 DC 07/06 PO 0538 Dextrose/Sodium 1,000 ML Q13H 07/07 0130 AC 07/07 Chloride IV 0516 Dextrose/Sodium 1,000 ML Q13H 07/06 0130 DC 07/06 Chloride IV 0126 Famotidine 20 MG DAILY 07/05 1100 AC 07/07 PO 0802 Gabapentin 100 MG Q8 07/04 1245 AC 07/07 PO 0515 Hydralazine HCl 10 MG ONCE ONE 07/07 0415 DC 07/07 IV 07/07 0416 0418 Hydralazine HCl 5 MG ONCE ONE 07/07 0215 DC 07/07 IV 07/07 0216 0234 Hydralazine HCl 100 MG TID 07/05 2100 AC 07/07 PO 0802 Melatonin 5 MG AT BEDTIME 07/05 2100 AC 07/06 PO 2128 Sertraline HCl 50 MG DAILY 07/05 1753 AC 07/07 PO 0802 Sodium Bicarbonate 50 MEQ ONCE ONE 07/06 1200 DC 07/06 Sodium Chloride 1,000 ML IV 07/07 0119 1352 Sodium Phosphate 1 UNIT ONCE ONE 07/07 0800 DC 07/07 [place] 07/07 0801 0807 Sodium Phosphate 1 UNIT ONCE ONE 07/07 0800 DC [place] 07/07 0801 Vital Signs & I&O Last 24 Hrs of Vitals and I&O: Vital Signs Date Time Temp Pulse Resp B/P B/P Pulse O2 O2 Flow FiO2 Mean Ox Delivery Rate 07/07 08 50 170/90 07/07 0800 97 07/07 0800 98.7 62 16 160/70 96 Room Air 07/07 0418 62 192/78 07/07 0234 61 180/87 07/06 2356 98.2 61 16 165/73 97 Room Air 07/06 2129 60 197/90 07/06 1600 96 Room Air Room Air 07/06 1600 98.4 52 13 156/70 96 Room Air Room Air 07/06 1316 54 199/116 07/06 1200 97 Room Air Room Air Intake & Output 07/07 1600 07/07 0800 07/07 0000 Intake Total 630 1405 Output Total 320 320 Balance 310 1085 Intake, IV 600 600 Intake, Tube 435 Feeding Intake, Tube 30 370 Irrigant Number 2 Bowel Movements Output, Urine 320 320 Exam General Appearance: no apparent distress, alert, awake Head: atraumatic, normal appearance Neck: normal inspection, supple Respiratory: chest non-tender, no respiratory distress Cardiovascular: regular rate/rhythm Abdomen: normal bowel sounds, soft, non-tender Extremities: normal inspection, no edema Results Last 24 Hrs of Lab Results: Laboratory Tests 07/07/17 0550: Anion Gap 6, Estimated GFR > 60, Glucose 101 H, Calcium 7.9 L, Phosphorus 2.7, Magnesium 1.7, Total Bilirubin 0.9, AST 15, ALT 26, Albumin 2.1 L, CBC w Diff NO MAN DIFF REQ, RBC 3.40 L, MCV 89.6, MCH 30.2, MCHC 33.7, RDW 15.6 H, MPV 10.5 H, Gran % 64.4, Lymphocytes % 25.1, Monocytes % 7.8, Eosinophils % 2.5, Basophils % 0.2, Absolute Granulocytes 4.2, Absolute Lymphocytes 1.6, Absolute Monocytes 0.5, Absolute Eosinophils 0.2, Absolute Basophils 0 Impression/Plan Impression/Plan Impression/Plan: Ms Landaverde is a 86-year-old woman with PMHx of significant for right-sided MCA infarct, status post CVA, dementia since 2016, left-sided deficits, bedbound and wheelchair bound, atrial fibrillation on anticoagulation ELIQUS 2.5 twice daily, hypertension, hyperlipidemia, history of varicose veins, remote history of pulmonary embolism, stoped Coumadin 3 years ago, GERD, parsons diverticulosis coli left more than right, status post PEG tube placement in 2016 after CVA,TUBULAR ADENOMA, right renal artery stenosis, back pain, osteoarthritis, osteopenia, depression, anxiety, obesity, remote history of diabetes mellitus not on insulin , recurrent admissions to the hospital for diarrhea, dehydration was brought in by ambulance after she was found altered, unresponsive on 07/03/2017. Pertinent labs in the last 24 hrs: WBC 7.2 (07/03/17)-->5.3 (07/06/17) Hemoglobin 7.3(07/03/17)-->10.1(07/06/17) platelets 120(07/03/17)-->133(07/06/17) Sodium 145, Potassium 3.8 (07/03/17)-->3.8(07/06/17) Sr Ceatinine 1.0(07/03/17)-->0.8(07/06/17) ABG 7.30, pCO2 32, pO2 107 UA revealed moderate leukocyte esterase, protein 100, packed bacteria. UC (07/03/17) revealed growth of Proteus. Sensitive to Ampi, Cefazolin, Augmentin,Cipro, Gent. UC (07/05/17) revealed growth of GNR. CT head showed evidence of her old right MCA infarct,urinalysis showed moderate leukocyte esterase, protein 100, packed bacteria. CT abdomen and pelvis showed a large volume of stool with stercoral colitis chest x-ray showed cardiomegaly. Below is the plan: #1 Altered mental status- She was brought in by ambulance to the ED for altered mental status, unresponsiveness, failure to thrive, dehydration, persistent black diarrhea. According to the daughter, she was recently admitted to [facility] for lethargy, altered mental status, hypotension, diarrhea. She was given no antibiotics during her hospital stay. She was discharged from [facility] on 07/01/2017 and since then she continued to have diarrhea/dehydration. * Altered Mental status most likely from diarrhea/dehydration versus bradycardia versus hypoglycemia versus hypotension from hypovolemia versus urinary tract infection versus abdominal infection. * Continue to monitor in ICU, and can downgrade to telemetry after pushing just completed today. * Monitor vitals every shift * Patient was found to be hypoglycemic at the time of admission, received 2 amp pulse of D50 after which blood sugars improved * Monitor blood sugars closely * Patient was bradycardic heart rate ranging between 40-45, heart rate remained in the 60s last 24 hours without any significant events overnight. #2 Sinus Bradycardia- Patient was in bradycardia at the time of admission, heart rate ranging in between 35-45. Troponin was negative. Overnight telemetry tracings showed sinus bradycardia. Off note patient has history of paroxysmal atrial fibrillation taking eliqus at home. Which we will still hold in anticipation of push enteroscopy * Troponin was negative. * Continuous telemetry monitoring for now * At home medication carvedilol is on hold * Patient doesn't need permanent pacemaker per cardiology * Echocardiogram is still pending. #3 Hypotension-Patient blood pressure was 80/50 at the time of admission. Improved with 2 L of normal saline bolus. SBP varying between 90-100 * Hypotension most likely from diarrhea and hypovolemia, dehydration * Her blood pressure improved and now her systolic remained elevated. We will restart her hydralazine 100 mg TID. She received his first IV hydralazine overnight. Given asked cardiology to add another antihypertensive in her regimen most likely nifedipine taking the antibiotic daily preventive pelvic pressure control. * Adequate hydration * Follow-up echocardiogram #3 Acute kidney injury- Resolved with IV hydration and her creatinine is 0.7 today. #4 Sepsis of urological origin- urinalysis showed moderate leukocyte esterase, protein 100, packed bacteria. Patient couldn't provide any complaints of note she had underlying dementia. However urine cultures positive for Proteus mirabilis sensitive to penicillin. Patient is chronically on the second 500 mg 3 times a day. #5 metabolic acidosis- Patient has metabolic acidosis, pH 7.30, bicarbonate 15, no anionic gap Most likely from diarrhea.She developed hyperchloremic hypernatremia most likely due to her diarrhea and also repletion of fluids with normal saline. She received D5 half, stating that it off bicarbonate for the last 2 days. #6 upper GI bleed/melena- Patient presented with persistent ongoing diarrhea, black colored stools. She has 4 more episodes of diarrhea in the emergency room which are guaiac-positive. patient has long-standing history of gastrointestinal issues, worked up by Dr. Belcher and Dr. Buckner in the past. Patient underwent upper endoscopy in August 2016 which was normal. she also underwent colonoscopy in now but 2016 which showed pandiverticulosis, internal and external hemorrhoids. * Upper GI bleed with dark stools-unknown source * Monitor vitals every shift * Type and screen done * 2 large IV bore needles of the time * Gentle hydration * Received 2 units of blood transfusion, her H&H is stable at 10.1. We will check her CBCs daily. * Goal hemoglobin greater than 7 * Continue proton pump inhibitors but we will change it to oral. * We will hold Eliquis for now as patient would go for post endoscopy on Friday. * Guaiac all the stools * Avoid NSAIDs * Long Chain Quiller Tender on board * Patient would have PillCam study as outpatient if her push enteroscopy would be unrevealing. #7 profuse diarrhea and Stercoral colitis- she has been having profuse diarrhea ongoing for months, on and off. CT abdomen showed large volume of stool within the rectum and circumferential thickening within the rectal mucosa indicating the likelihood of underlying stercoral colitis. Multiple admissions in the past for constipation, stercoral colitis, fecal impaction. * Patient is oozing from her fecal impaction/Stercoral colitis and fever given her Fleet enema and if that does not improve her fecal impaction we might consider digital fecal impaction. * f/u stool Cultures/sensitivities * stool C. difficile f/u. #8 Blood cultures one bottle positive for gram-positive cocci in clusters Initially was given vancomycin but later on her her blood culture was suggestive of staph coagulase and her vancomycin was discontinued. #10Tube feedings - keep the feedings are on hold due to procedure today and. Restart usually give feedings after procedure. #11atrial fibrillation now in sinus rhythm hold eliqus given GI bleed Hypertensionwe will restart home antihypertensives except beta blockers as her blood pressure would allow. Hyperlipidemia patient takes Lipitor at home however patient family refused to continue Lipitor GERD continue Famtidine. DVT prophylaxis alps given GI bleed Patient is full code Patient failed swallow evaluation 07/04/2017 -Nothing by mouth push and tenderness of the schedule today PEG tube in place, tube feeding on hold Ruy Menjivar MD 07/07/17 1401: Impression/Plan Impression/Plan Impression/Plan: Ruy José M.D. have examined this patient, reviewed available EMR data, personally reviewed images, discussed with resident/PA/DISTRIBUTION ENGINEER, discussed management plan with housestaff and nursing staff, discussed managment plan all of healthcare providers, discussed management plan with patient and/or family, agreed with resident/PA/DISTRIBUTION ENGINEER. The past history and parts of the chart have been autopopulated. TTS 35 min
[2017-07-07 08:00] VITALS: BP 160/70
--- NOTE | 2017-07-07 10:55 | PN- Cardiology ---
Subjective Subjective: Patient is resting comfortably. Follows commands. Remains a limited historian. Objective Vital Signs and I&Os Vital Signs Date Time Temp Pulse Resp B/P B/P Pulse O2 O2 Flow FiO2 Mean Ox Delivery Rate 07/07 0802 50 170/90 07/07 0800 97 07/07 0800 98.7 62 16 160/70 96 Room Air 07/07 0418 62 192/78 07/07 0234 61 180/87 07/06 2356 98.2 61 16 165/73 97 Room Air 07/06 2129 60 197/90 07/06 1600 96 Room Air Room Air 07/06 1600 98.4 52 13 156/70 96 Room Air Room Air 07/06 1316 54 199/116 07/06 1200 97 Room Air Room Air Intake & Output 07/07 1600 07/07 0800 07/07 0000 07/06 1600 07/06 0800 07/06 0000 Intake Total 630 1405 1212 1075 1075 Output Total 320 320 200 250 245 Balance 310 1085 1012 825 830 Intake, IV 600 600 486 650 800 Intake, Other 30 Intake, Tube 435 501 195 75 Feeding Intake, Tube 30 370 225 200 200 Irrigant Number 2 2 2 Bowel Movements Output, Urine 320 320 200 250 245 Physical Exam: General: no apparent distress. Eyes: No obvious scleral icterus. HEENT: No jugular venous distention or abnormal jugular venous pulsations. Cardiovascular: Normal intensity S1/S2. Regular bradycardia Respiratory: Lungs clear to auscultation bilaterally. Abdomen: no guarding or rebound tenderness. Musculoskeletal: No clubbing or cyanosis noted; no edema Skin: Warm Lymph: No gross lymphadenopathy. Current Medications: Current Medications Sig/Renee Start time Last Medication Dose Route Stop Time Status Admin Amoxicillin 500 MG TID 07/06 1400 AC 07/07 PO 0802 Dextrose/Sodium 1,000 ML Q13H 07/07 0130 AC 07/07 Chloride IV 0516 Dextrose/Sodium 1,000 ML Q13H 07/06 0130 DC 07/06 Chloride IV 0126 Famotidine 20 MG DAILY 07/05 1100 AC 07/07 PO 0802 Gabapentin 100 MG Q8 07/04 1245 AC 07/07 PO 0515 Hydralazine HCl 10 MG ONCE ONE 07/07 0415 DC 07/07 IV 07/07 0416 0418 Hydralazine HCl 5 MG ONCE ONE 07/07 0215 DC 07/07 IV 07/07 0216 0234 Hydralazine HCl 100 MG TID 07/05 2099 AC 07/07 PO 0802 Melatonin 5 MG AT BEDTIME 07/05 2099 AC 07/06 PO 2128 Sertraline HCl 50 MG DAILY 07/05 1753 AC 07/07 PO 0802 Sodium Bicarbonate 50 MEQ ONCE ONE 07/06 1200 DC 07/06 Sodium Chloride 1,000 ML IV 07/07 0119 1352 Sodium Phosphate 1 UNIT ONCE ONE 07/07 0800 DC 07/07 DE 07/07 0801 0807 Sodium Phosphate 1 UNIT ONCE ONE 07/07 0800 DC DE 07/07 0801 Results Last 48 Hrs of Labs/Mics: Laboratory Tests 07/07/17 0550: Anion Gap 6, Estimated GFR > 60, Glucose 101 H, Calcium 7.9 L, Phosphorus 2.7, Magnesium 1.7, Total Bilirubin 0.9, AST 15, ALT 26, Albumin 2.1 L, CBC w Diff NO MAN DIFF REQ, RBC 3.40 L, MCV 89.6, MCH 30.2, MCHC 33.7, RDW 15.6 H, MPV 10.5 H, Gran % 64.4, Lymphocytes % 25.1, Monocytes % 7.8, Eosinophils % 2.5, Basophils % 0.2, Absolute Granulocytes 4.2, Absolute Lymphocytes 1.6, Absolute Monocytes 0.5, Absolute Eosinophils 0.2, Absolute Basophils 0 07/06/17 0350: Anion Gap 9, Estimated GFR > 60, Glucose 130 H, Calcium 7.8 L, Phosphorus 2.6, Magnesium 1.9, Total Bilirubin 0.8, AST 16, ALT 18, Albumin 2.0 L, CBC w Diff NO MAN DIFF REQ, RBC 3.34 L, MCV 89.9, MCH 30.2, MCHC 33.6, RDW 15.9 H, MPV 11.2 H, Gran % 53.1, Lymphocytes % 35.2, Monocytes % 9.4 H, Eosinophils % 1.9, Basophils % 0.4, Absolute Granulocytes 2.8, Absolute Lymphocytes 1.9, Absolute Monocytes 0.5, Absolute Eosinophils 0.1, Absolute Basophils 0 07/05/17 1845: Anion Gap 7, Estimated GFR 59 L, BUN/Creatinine Ratio 16.7 Recent Imaging Studies: Telemetry tracings shows sinus rhythm and sinus bradycardia with no evidence of prolonged pauses or advanced heart block Echocardiogram which has not crossed into [employer] showed normal biventricular function with no focal regional wall motion abnormalities Assessment/Plan Assessment/Plan 1. Hypotension/hypovolemia due to diarrhea 2. Sinus bradycardia 3. Anemia requiring transfusion 4. History of paroxysmal atrial fibrillation on outpatient Eliquis 5. Prior CVA 6. History of dementia/hypertension/hyperlipidemia/remote pulmonary emboli 7. History of diabetes/uterine fibroids Patient remains in sinus rhythm with a low-level bradycardia but no evidence of advanced heart block or prolonged pauses. Blood pressure now remains elevated and would resume her outpatient ARB but would not resume her outpatient beta- rajiv. Resume outpatient Eliquis when able. Her echocardiogram which has not crossed into [email or web address]) showed normal biventricular function. Rolly Abreu MD [facility] Continue telemetry? Yes
--- NOTE | 2017-07-07 11:18 | PN- Infect Dx ---
Subjective Subjective: Afebrile. She complains of a headache and, when asked, also complains of pain in her abdomen and extremities. Objective Last 24 Hrs of Vital Signs/I&O Vital Signs Date Time Temp Pulse Resp B/P B/P Pulse O2 O2 Flow FiO2 Mean Ox Delivery Rate 07/07 0802 50 170/90 07/07 0800 97 07/07 0800 98.7 62 16 160/70 96 Room Air 07/07 0418 62 192/78 07/07 0234 61 180/87 07/06 2356 98.2 61 16 165/73 97 Room Air 07/06 2129 60 197/90 07/06 1600 96 Room Air Room Air 07/06 1600 98.4 52 13 156/70 96 Room Air Room Air 07/06 1316 54 199/116 07/06 1200 97 Room Air Room Air Intake & Output 07/07 1600 07/07 0800 07/07 0000 Intake Total 630 1405 Output Total 320 320 Balance 310 1085 Intake, IV 600 600 Intake, Tube 435 Feeding Intake, Tube 30 370 Irrigant Number 2 Bowel Movements Output, Urine 320 320 Physical Exam Other Physical Findings: She appears comfortable in no acute distress Lungs are clear Heart regular rhythm with no murmur Abdomen is soft, with no obvious tenderness, positive bowel sounds Back no obvious CVA tenderness Extremities no cyanosis, clubbing or edema Arredondo catheter remains in place Results Last 24 Hours of Lab Results: Laboratory Tests 07/07 0550 Chemistry Sodium (137 - 145 mmol/L) 141 Potassium (3.5 - 5.1 mmol/L) 4.0 Chloride (98 - 107 mmol/L) 117 H Carbon Dioxide (22 - 30 mmol/L) 18 L Anion Gap (5 - 16) 6 BUN (7 - 17 mg/dL) 13 Creatinine (0.5 - 1.0 mg/dL) 0.7 Estimated GFR (>60 ml/min) > 60 Glucose (65 - 99 mg/dL) 101 H Calcium (8.4 - 10.2 mg/dL) 7.9 L Phosphorus (2.5 - 4.5 mg/dL) 2.7 Magnesium (1.6 - 2.3 mg/dL) 1.7 Total Bilirubin (0.2 - 1.3 mg/dL) 0.9 AST (14 - 36 U/L) 15 ALT (9 - 52 U/L) 26 Albumin (3.5 - 5.0 g/dL) 2.1 L Hematology CBC w Diff NO MAN DIFF REQ WBC (4.8 - 10.8 /CUMM) 6.5 RBC (4.20 - 5.40 /CUMM) 3.40 L Hgb (12.0 - 16.0 G/DL) 10.3 L Hct (37 - 47 %) 30.4 L MCV (81.0 - 99.0 FL) 89.6 MCH (27.0 - 31.0 PG) 30.2 MCHC (33.0 - 37.0 G/DL) 33.7 RDW (11.5 - 14.5 %) 15.6 H Plt Count (130 - 400 /CUMM) 150 MPV (7.4 - 10.4 FL) 10.5 H Gran % (42.2 - 75.2 %) 64.4 Lymphocytes % (20.5 - 51.1 %) 25.1 Monocytes % (1.7 - 9.3 %) 7.8 Eosinophils % (0 - 5 %) 2.5 Basophils % (0.0 - 2.0 %) 0.2 Absolute Granulocytes (1.4 - 6.5 /CUMM) 4.2 Absolute Lymphocytes (1.2 - 3.4 /CUMM) 1.6 Absolute Monocytes (0.10 - 0.60 /CUMM) 0.5 Absolute Eosinophils (0.0 - 0.7 /CUMM) 0.2 Absolute Basophils (0.0 - 0.2 /CUMM) 0 Last 24 Hours of Klaus Results: No recent cultures Assessment/Plan ID Impression: Stable, with temperatures and white blood cell count remaining normal, now on Amoxicillin, Day 3 of treatment for a Proteus UTI in the setting of initial hypothermic and transient hypotension, which was likely secondary to a GI bleed, with a significant anemia noted on admission, and suspect that the positive urine culture may just represent asymptomatic bacteriuria. She continues to have loose, guaiac positive stools, but her H&H has remained stable since the 2 blood transfusions, and she is scheduled for a push enteroscopy later today. Her initial CT scan did suggest stercoral colitis, suggesting a fecal impaction, and she may still require fecal disimpaction. Suggestion: 1. Remove Arredondo catheter 2. Consider need for fecal disimpaction 3. Continue Amoxicillin
--- NOTE | 2017-07-07 14:29 | Proc Note Endoscopy ---
Endoscopy Procedure Medical History: unchanged (see [facility]) Mental Status: alert/oriented Heart/Lung Eval Prior to Sedation: within normal limits Candidate for Sedation? Yes Procedure Date: 07/07/17 Procedure Type: push enteroscopy Brick And Block Mason: Evens Buckner MD ASA Classification: IV Indications: Recurrent anemia. Instrument: pediatric colonoscope Meds Received: MAC Patient's Tolerance: good Complications: none Extent Reached: proximal to mid jejunum Procedure: After getting written informed consent the patient was placed in the left lateral decubitus position with pulse oximetry, cardiac monitoring, and supplemental oxygen given. A bite block was inserted and IV sedation was given until the desired effect was achieved. A high definition upper Olympus endoscope was then inserted into the mouth and advanced to the proximal to mid jejunum with little difficulty. Retroflexed views and photodocumentation was obtained. Findings: Esophagus: The esophageal mucosa was grossly normal appearance and there was a normal appearing Z line at 40 cm from the incisors. Stomach: The gastric mucosa was grossly normal in appearance. The feeding tube bumper was appreciated in the body and was normal in appearance. There were no ulcers, erosions, or masses appreciated. Distention and peristalsis of the stomach appeared normal. Retroflexed views were normal did not reveal significant hiatal hernia. Duodenum: The duodenal bulb, sweep, and folds were grossly normal in appearance. Jejunum: The jejunal mucosa to the mid jejunum was normal in appearance with normal-appearing villi. There were no AVMs, ulcers, polyps, or erosions appreciated. There was bile appreciated throughout to the mid jejunum without any active bleeding appreciated. Impression: 1. Grossly normal push enteroscopy to the mid jejunum without active bleeding or a source of anemia appreciated. Recommendations: 1. Resume tube feeds as tolerated. 2. Follow CBC and transfuse as needed to maintain hemoglobin greater than 8. 3. There are no absolute contraindications to resuming anticoagulation if it is medically indicated, however the risks of anticoagulation needs to be weighed against its benefits. 4. Notify GI for signs of overt hemodynamically significant GI bleeding.
[2017-07-07 16:00] VITALS: BP 170/80
[2017-07-08] VITALS: BP 140/80
[2017-07-08 05:25] LABS: ABSOLUTE BASOPHIL COUNT 0 /CUMM (0.0-0.2); ABSOLUTE EOSINOPHIL COUNT 0.3 /CUMM (0.0-0.7); ABSOLUTE GRANULOCYTE CT 4.7 /CUMM (1.4-6.5); ABSOLUTE LYMPH COUNT 1.7 /CUMM (1.2-3.4); ABSOLUTE MONOCYTE COUNT 0.7 /CUMM (0.10-0.60); BASOPHIL % 0.3 % (0.0-2.0); EOSINOPHIL % 3.9 % (0-5); GRANULOCYTE % 63.8 % (42.2-75.2); HEMATOCRIT 28.9 % (37-47); MEAN CORPUSCULAR HGB 30.5 PG (27.0-31.0); MEAN CORPUSCULAR HGB CONC 33.6 G/DL (33.0-37.0); MEAN CORPUSCULAR VOLUME 90.8 FL (81.0-99.0); MEAN PLATELET VOLUME 10.7 FL (7.4-10.4); PLATELET COUNT 151 /CUMM (130-400); RBC DISTRIBUTION WIDTH 16.2 % (11.5-14.5); RED BLOOD CELL CT 3.19 /CUMM (4.20-5.40); WHITE BLOOD CELL COUNT 7.4 /CUMM (4.8-10.8)
--- NOTE | 2017-07-08 07:33 | PN- CRCU ---
Gi Perez 07/08/17 0732: Subjective HPI/Critical Care Issues: Altered mental status -Lethargy -Hypotension -Bradycardia -Hypoglycemia -Sepsis for urological origin -Diarrhea/ stercoral colitis/fecal impaction 24 hour events Patient was seen and examined this morning. She was lying comfortably on bed without any significant complaints. Her vital signs remained stable. She remained afebrile, pulse rate ranges in 50-60, blood pressure ranges from 1:30 to 170s systolic. She saturating fine on room air. She was given multiple enemas and last 3 days with pasty stool coming out without any obvious hard fecal matter. Her WBC count is 7.4, hemoglobin 9.7 with normal platelets. The sodium is 139, potassium 3.8, BUN 11, creatinine 0.7. Objective Current Medications: Current Medications Sig/Renee Start time Last Medication Dose Route Stop Time Status Admin Amoxicillin 500 MG TID 07/06 1400 AC 07/08 PO 0943 Apixaban 2.5 MG BID 07/07 2100 AC 07/08 PO 0941 Chlorhexidine 1 GM .STK-MED ONE 07/07 1440 DC Gluconate TOP 07/07 1441 Dextrose/Sodium 1,000 ML Q13H 07/07 0130 DC 07/07 Chloride IV 2256 Famotidine 20 MG DAILY 07/05 1100 AC 07/08 PO 0941 Gabapentin 100 MG Q8 07/04 1245 AC 07/08 PO 0629 Hydralazine HCl 100 MG TID 07/05 2100 AC 07/08 PO 0942 Losartan Potassium 50 MG QPM 07/07 2100 AC 07/07 PO 2057 Magnesium Chloride 64 MG ONCE ONE 07/08 0845 DC PO 07/08 0846 Magnesium Oxide 400 MG ONE ONE 07/08 0930 DC 07/08 PO 07/08 0931 0941 Melatonin 5 MG AT BEDTIME 07/05 2100 AC 07/07 PO 2057 Polyethylene Glycol 17 GM DAILY 07/08 1200 AC PO Potassium Chloride 20 MEQ 0930 07/08 0930 DC 07/08 PO 07/08 0931 0940 Potassium Chloride 20 MEQ ONCE ONE 07/08 0830 DC PO 07/08 0831 Senna/Docusate Sodium 2 TAB DAILY 07/08 1015 AC 07/08 PO 1134 Sertraline HCl 50 MG DAILY 07/05 1753 AC 07/08 PO 0942 Vital Signs & I&O Last 24 Hrs of Vitals and I&O: Vital Signs Date Time Temp Pulse Resp B/P B/P Pulse O2 O2 Flow FiO2 Mean Ox Delivery Rate 07/08 0942 60 132/70 07/08 0800 96 Room Air 07/08 0800 99.0 55 30 132/70 96 Room Air 07/08 0000 96 Room Air 07/08 0000 97.2 59 20 140/80 96 Room Air 07/077 97.5 57 39 190/60 07/08 2055 97.5 57 39 190/60 07/07 2000 Room Air Room Air 07/07 1600 98.8 50 18 170/80 98 Room Air 07/07 1500 60 170/90 Intake & Output 07/08 1600 07/08 0800 07/08 0000 Intake Total 1040 804 Output Total 40 Balance 1040 764 Intake, IV 600 484 Intake, Tube 240 120 Feeding Intake, Tube 200 200 Irrigant Number 0 Bowel Movements Output, Urine 40 Patient 172 lb Weight Weight Bed scale Measurement Method Exam General Appearance: alert, awake, forgetful, underlying dementia Head: atraumatic Respiratory: chest non-tender, no respiratory distress Cardiovascular: regular rate/rhythm, edema, murmur Abdomen: soft, non-tender, no organomegaly Extremities: normal inspection Results Last 24 Hrs of Lab Results: Laboratory Tests 07/08/17 0420: Anion Gap 8, Estimated GFR > 60, Glucose 131 H, Calcium 8.1 L, Phosphorus 3.0, Magnesium 1.8, Total Bilirubin 0.9, AST 15, ALT 21, Albumin 2.0 L, CBC w Diff NO MAN DIFF REQ, RBC 3.19 L, MCV 90.8, MCH 30.5, MCHC 33.6, RDW 16.2 H, MPV 10.7 H, Gran % 63.8, Lymphocytes % 22.4, Monocytes % 9.6 H, Eosinophils % 3.9, Basophils % 0.3, Absolute Granulocytes 4.7, Absolute Lymphocytes 1.7, Absolute Monocytes 0.7 H, Absolute Eosinophils 0.3, Absolute Basophils 0 Impression/Plan Impression/Plan Impression/Plan: Ms Landaverde is a 86-year-old woman with PMHx of significant for right-sided MCA infarct, status post CVA, dementia since 2016, left-sided deficits, bedbound and wheelchair bound, atrial fibrillation on anticoagulation ELIQUS 2.5 twice daily, hypertension, hyperlipidemia, history of varicose veins, remote history of pulmonary embolism, stoped Coumadin 3 years ago, GERD, parsons diverticulosis coli left more than right, status post PEG tube placement in 2016 after CVA,TUBULAR ADENOMA, right renal artery stenosis, back pain, osteoarthritis, osteopenia, depression, anxiety, obesity, remote history of diabetes mellitus not on insulin , recurrent admissions to the hospital for diarrhea, dehydration was brought in by ambulance after she was found altered, unresponsive on 07/03/2017. Pertinent labs in the last 24 hrs: WBC 7.2 (07/03/17)-->5.3 (07/06/17) Hemoglobin 7.3(07/03/17)-->10.1(07/06/17) platelets 120(07/03/17)-->133(07/06/17) Sodium 145, Potassium 3.8 (07/03/17)-->3.8(07/06/17) Sr Ceatinine 1.0(07/03/17)-->0.8(07/06/17) ABG 7.30, pCO2 32, pO2 107 UA revealed moderate leukocyte esterase, protein 100, packed bacteria. UC (07/03/17) revealed growth of Proteus. Sensitive to Ampi, Cefazolin, Augmentin,Cipro, Gent. UC (07/05/17) revealed growth of GNR. CT head showed evidence of her old right MCA infarct,urinalysis showed moderate leukocyte esterase, protein 100, packed bacteria. CT abdomen and pelvis showed a large volume of stool with stercoral colitis chest x-ray showed cardiomegaly. Below is the plan: #1 Altered mental status- She was brought in by ambulance to the ED for altered mental status, unresponsiveness, failure to thrive, dehydration, persistent black diarrhea. According to the daughter, she was recently admitted to [facility] for lethargy, altered mental status, hypotension, diarrhea. She was given no antibiotics during her hospital stay. She was discharged from [facility] on 07/01/2017 and since then she continued to have diarrhea/dehydration. * Altered Mental status most likely from diarrhea/dehydration versus bradycardia versus hypoglycemia versus hypotension from hypovolemia versus urinary tract infection versus abdominal infection. * She is currently at her baseline. #2 Sinus Bradycardia- Her heart rate is ranging from 50-60. She has stable asymptomatic sinus bradycardia. Her home dose of carvedilol was stopped and will not restart it on discharge #3 Hypotension-resolved and currently we treating her hypertension with her home medication regimen including losartan but her hydralazine was increased to 100 mg 3 times a day #3 Acute kidney injury- Resolved with IV hydration and her creatinine is 0.7 today. #4 Sepsis of urological origin- Urine culture grew Proteus mirabilis and was started on amoxicillin after sensitivity results. Today is her seventh day of antibiotic but fourth day of amoxicillin most likely we will continue amoxicillin for total of 7 days. ID recommendations appreciated. #6 upper GI bleed/melena- She had push enteroscope yesterday did not reveal any evidence of GI bleed. Patient might have follow-up with Study as outpatient if needed. Her H&H remained stable at this point. GI already signed off until less any overt GI bleed. #7 profuse diarrhea and Stercoral colitis- Patient was given multiple enemas for last 3 days. Every time after receiving enema she was having semiliquid/pasty stools. No hard fecal matter was noted in her bowel movements. They were still concerned that if she can have fecal impaction at higher level as digital disimpaction was tried prior ICU nurse Reta yesterday and she was not able to reach any hard fecal stool. Patient was discussed with Dr. Buckner again on phone regarding any surgical intervention for stool impaction or any follow-up imaging study to look for higher level of stool impaction and underlying stercoral colitis. Dr. Buckner is not convinced but not against involving surgery. He was recommending that if she is having pasty stools she might not have any intestinal obstruction which can be ruled out. Abdominal x-ray and as far as she doesn't have intestinal obstruction we could give her good bowel regimen including MiraLAX and senna for good motility. We will start her on MiraLAX and Senokot for now and will order x-ray abdomen to rule out any intestinal objection. #8 Blood cultures one bottle positive for gram-positive cocci in clusters Initially was given vancomycin but later on her her blood culture was suggestive of staph coagulase and her vancomycin was discontinued. #10Tube feedings - she is receiving Glucerna at rate of 60 mils per hour with 100 mL of water flushes every 4 hours. #11atrial fibrillation now in sinus rhythm Eliquis was restarted yesterday after ruling out GI bleed Hypertensioncurrently reasonably controlled with losartan and hydralazine. We will continue losartan 50 mg daily and hydralazine 100 mg 3 times a day. If her blood pressure remained elevated we might go up on the started. Hyperlipidemia patient takes Lipitor at home however patient family refused to continue Lipitor GERD continue Famtidine. DVT prophylaxis pharmacological with Eliquis Patient is full code PEG tube in place, tube feeding ordered Ruy Menjivar MD 07/08/17 1321: Impression/Plan Impression/Plan Impression/Plan: Ruy José M.D. have examined this patient, reviewed available EMR data, personally reviewed images, discussed with resident/PA/NICKER, discussed management plan with housestaff and nursing staff, discussed managment plan all of healthcare providers, discussed management plan with patient and/or family, agreed with resident/PA/NICKER. The past history and parts of the chart have been autopopulated. Impression 86 year old woman * diarrhea - improved, likely related to fecal impaction * Proteus UTI Plan -f/u with GI regarding stool impaction regarding any further recommendations such as imaging or procedures -complete course of amoxicillin per ID -cardiology follow up - stable bradycardia -downgrade to telemetry DVT prophylaxis at all times
[2017-07-08 08:00] VITALS: BP 132/70
--- NOTE | 2017-07-08 08:54 | PN- Cardiology ---
Subjective Subjective: Patient is a poor historian but complains of generalized body pain. Review of Systems: Unreliable patient is a poor historian Objective Vital Signs and I&Os Vital Signs Date Time Temp Pulse Resp B/P B/P Pulse O2 O2 Flow FiO2 Mean Ox Delivery Rate 07/08 0000 96 Room Air 07/08 0000 97.2 59 20 140/80 96 Room Air 07/07 2056 97.5 57 39 190/60 07/08 2055 97.5 57 39 190/60 07/07 2000 Room Air Room Air 07/07 1600 98.8 50 18 170/80 98 Room Air 07/07 1500 60 170/90 Intake & Output 07/08 1600 07/08 0800 07/08 0000 07/07 1600 07/07 0800 07/07 0000 Intake Total 1040 804 694 877 6775 Output Total 40 420 320 320 Balance 1040 764 203 838 7585 Intake, IV 600 484 525 600 600 Intake, Tube 240 120 435 Feeding Intake, Tube 200 200 30 370 Irrigant Number 0 2 2 Bowel Movements Output, Urine 40 420 320 320 Physical Exam: Patient is a well-developed well-nourished female appearing in no acute distress HEENT is unremarkable Neck is supple there is no JVD Lungs are clear Heart regular rhythm S1 and S2 are normal no murmurs gallops or rubs Abdomen bowel sounds positive Extremities without edema Current Medications: Current Medications Sig/Renee Start time Last Medication Dose Route Stop Time Status Admin Amoxicillin 500 MG TID 07/06 1400 AC 07/07 PO 2054 Apixaban 2.5 MG BID 07/07 2099 AC 07/07 PO 2056 Chlorhexidine 1 GM .STK-MED ONE 07/07 1440 DC Gluconate TOP 07/07 1441 Dextrose/Sodium 1,000 ML Q13H 07/07 0130 AC 07/07 Chloride IV 2256 Famotidine 20 MG DAILY 07/05 1100 AC 07/07 PO 08 Gabapentin 100 MG Q8 07/04 1245 AC 07/08 PO 06 Hydralazine HCl 100 MG TID 07/05 2099 AC 07/07 PO 2055 Losartan Potassium 50 MG QPM 07/07 2100 AC 07/07 PO 2056 Magnesium Chloride 64 MG ONCE ONE 07/08 0845 DC PO 07/08 0846 Melatonin 5 MG AT BEDTIME 07/05 2099 AC 07/07 PO 2056 Potassium Chloride 20 MEQ ONCE ONE 07/08 0830 DC PO 07/08 0831 Sertraline HCl 50 MG DAILY 07/05 1753 AC 07/07 PO 0802 Results Last 48 Hrs of Labs/Mics: Laboratory Tests 07/08/17 0420: Anion Gap 8, Estimated GFR > 60, Glucose 131 H, Calcium 8.1 L, Phosphorus 3.0, Magnesium 1.8, Total Bilirubin 0.9, AST 15, ALT 21, Albumin 2.0 L, CBC w Diff NO MAN DIFF REQ, RBC 3.19 L, MCV 90.8, MCH 30.5, MCHC 33.6, RDW 16.2 H, MPV 10.7 H, Gran % 63.8, Lymphocytes % 22.4, Monocytes % 9.6 H, Eosinophils % 3.9, Basophils % 0.3, Absolute Granulocytes 4.7, Absolute Lymphocytes 1.7, Absolute Monocytes 0.7 H, Absolute Eosinophils 0.3, Absolute Basophils 0 07/07/17 0550: Anion Gap 6, Estimated GFR > 60, Glucose 101 H, Calcium 7.9 L, Phosphorus 2.7, Magnesium 1.7, Total Bilirubin 0.9, AST 15, ALT 26, Albumin 2.1 L, CBC w Diff NO MAN DIFF REQ, RBC 3.40 L, MCV 89.6, MCH 30.2, MCHC 33.7, RDW 15.6 H, MPV 10.5 H, Gran % 64.4, Lymphocytes % 25.1, Monocytes % 7.8, Eosinophils % 2.5, Basophils % 0.2, Absolute Granulocytes 4.2, Absolute Lymphocytes 1.6, Absolute Monocytes 0.5, Absolute Eosinophils 0.2, Absolute Basophils 0 Telemetry personally reviewed sinus rhythm with sinus bradycardia Recent Imaging Studies: Echocardiogram has been reviewed but has not crossed over into Live[employer] it demonstrated normal biventricular function Assessment/Plan Assessment/Plan 1. Hypotension/hypovolemia due to diarrhea resolved 2. Sinus bradycardia 3. Anemia requiring transfusion 4. History of paroxysmal atrial fibrillation on outpatient Eliquis 5. Prior CVA 6. History of dementia/hypertension/hyperlipidemia/remote pulmonary emboli 7. History of diabetes/uterine fibroids Recommendations 1. Would continue to hold beta rajiv secondary to bradycardia 2. Continue losartan for hypertension titrate as needed 3. Elevated crest has resumed for stroke prevention Continue telemetry? Yes
--- NOTE | 2017-07-08 11:49 | PN- Infect Dx ---
Subjective Subjective: Afebrile. She complains of pain in multiple sites. Objective Last 24 Hrs of Vital Signs/I&O Vital Signs Date Time Temp Pulse Resp B/P B/P Pulse O2 O2 Flow FiO2 Mean Ox Delivery Rate 07/08 0942 60 132/70 07/08 0800 96 Room Air 07/08 0800 99.0 55 30 132/70 96 Room Air 07/08 0000 96 Room Air 07/08 0000 97.2 59 20 140/80 96 Room Air 07/07 2056 97.5 57 39 190/60 07/08 2055 97.5 57 39 190/60 07/07 2000 Room Air Room Air 07/07 1600 98.8 50 18 170/80 98 Room Air 07/07 1500 60 170/90 Intake & Output 07/08 1600 07/08 0800 07/08 0000 Intake Total 1040 804 Output Total 40 Balance 1040 764 Intake, IV 600 484 Intake, Tube 240 120 Feeding Intake, Tube 200 200 Irrigant Number 0 Bowel Movements Output, Urine 40 Patient 172 lb Weight Weight Bed scale Measurement Method Physical Exam Other Physical Findings: She appears comfortable in no acute distress Lungs are clear Heart regular rhythm with no murmur Abdomen is soft, nontender with positive bowel sounds Back no CVA tenderness Extremities no cyanosis, clubbing or edema Results Last 24 Hours of Lab Results: Laboratory Tests 07/08 0420 Chemistry Sodium (137 - 145 mmol/L) 139 Potassium (3.5 - 5.1 mmol/L) 3.8 Chloride (98 - 107 mmol/L) 114 H Carbon Dioxide (22 - 30 mmol/L) 18 L Anion Gap (5 - 16) 8 BUN (7 - 17 mg/dL) 11 Creatinine (0.5 - 1.0 mg/dL) 0.7 Estimated GFR (>60 ml/min) > 60 Glucose (65 - 99 mg/dL) 131 H Calcium (8.4 - 10.2 mg/dL) 8.1 L Phosphorus (2.5 - 4.5 mg/dL) 3.0 Magnesium (1.6 - 2.3 mg/dL) 1.8 Total Bilirubin (0.2 - 1.3 mg/dL) 0.9 AST (14 - 36 U/L) 15 ALT (9 - 52 U/L) 21 Albumin (3.5 - 5.0 g/dL) 2.0 L Hematology CBC w Diff NO MAN DIFF REQ WBC (4.8 - 10.8 /CUMM) 7.4 RBC (4.20 - 5.40 /CUMM) 3.19 L Hgb (12.0 - 16.0 G/DL) 9.7 L Hct (37 - 47 %) 28.9 L MCV (81.0 - 99.0 FL) 90.8 MCH (27.0 - 31.0 PG) 30.5 MCHC (33.0 - 37.0 G/DL) 33.6 RDW (11.5 - 14.5 %) 16.2 H Plt Count (130 - 400 /CUMM) 151 MPV (7.4 - 10.4 FL) 10.7 H Gran % (42.2 - 75.2 %) 63.8 Lymphocytes % (20.5 - 51.1 %) 22.4 Monocytes % (1.7 - 9.3 %) 9.6 H Eosinophils % (0 - 5 %) 3.9 Basophils % (0.0 - 2.0 %) 0.3 Absolute Granulocytes (1.4 - 6.5 /CUMM) 4.7 Absolute Lymphocytes (1.2 - 3.4 /CUMM) 1.7 Absolute Monocytes (0.10 - 0.60 /CUMM) 0.7 H Absolute Eosinophils (0.0 - 0.7 /CUMM) 0.3 Absolute Basophils (0.0 - 0.2 /CUMM) 0 Last 24 Hours of Klaus Results: No recent cultures Assessment/Plan ID Impression: Stable, with temperatures and white blood cell count remaining normal, now on Amoxicillin, Day 4 of treatment for a Proteus UTI in the setting of initial hypothermic and transient hypotension, though suspect it may just represent asymptomatic bacteriuria. She underwent a push enteroscopy yesterday, which was essentially normal. Suggestion: 1. Further management of her stools/impaction per GI/Medicine 2. Continue Amoxicillin
--- NOTE | 2017-07-08 14:19 | RADIOLOGY REPORT ---
EXAMINATION: XR PORTABLE ABDOMEN CLINICAL INFORMATION: Fecal impaction. Rule out intestinal obstruction COMPARISON: CT abdomen pelvis 07/03/2017 TECHNIQUE: AP view of the abdomen, 2 films. Examination limited secondary to portable nature and patient motion. FINDINGS: No dilated air-filled loops of small bowel visualized. No significant stool burden throughout the colon. A gastrostomy tube is partially visualized. Calcified density projecting over the pelvis is consistent with a fibroid. Diffuse osteopenia with degenerative changes of the spine and hips. IMPRESSION: Nonobstructed bowel gas pattern. No significant colonic stool burden.
[2017-07-08 16:00] VITALS: BP 142/58
[2017-07-08 22:43] VITALS: BP 190/62
[2017-07-09 01:00] VITALS: BP 140/60
[2017-07-09 05:00] LABS: ABSOLUTE BASOPHIL COUNT 0 /CUMM (0.0-0.2); ABSOLUTE EOSINOPHIL COUNT 0.4 /CUMM (0.0-0.7); ABSOLUTE GRANULOCYTE CT 3.6 /CUMM (1.4-6.5); ABSOLUTE LYMPH COUNT 1.5 /CUMM (1.2-3.4); ABSOLUTE MONOCYTE COUNT 0.7 /CUMM (0.10-0.60); BASOPHIL % 0.4 % (0.0-2.0); EOSINOPHIL % 6.4 % (0-5); GRANULOCYTE % 57.3 % (42.2-75.2); HEMATOCRIT 29.6 % (37-47); MEAN CORPUSCULAR HGB 30.9 PG (27.0-31.0); MEAN CORPUSCULAR HGB CONC 34.1 G/DL (33.0-37.0); MEAN CORPUSCULAR VOLUME 90.6 FL (81.0-99.0); MEAN PLATELET VOLUME 10.2 FL (7.4-10.4); PLATELET COUNT 158 /CUMM (130-400); RBC DISTRIBUTION WIDTH 15.4 % (11.5-14.5); RED BLOOD CELL CT 3.27 /CUMM (4.20-5.40); WHITE BLOOD CELL COUNT 6.2 /CUMM (4.8-10.8)
--- NOTE | 2017-07-09 07:27 | PN- CRCU ---
Gi Perez 07/09/17 0727: Subjective HPI/Critical Care Issues: Altered mental status -Lethargy -Hypotension -Bradycardia -Hypoglycemia -Sepsis for urological origin -Diarrhea/ stercoral colitis/fecal impaction 24 hour events Patient was seen and examined this morning. She was lying comfortably on bed without any significant complaints. Her vital signs remained stable. She remained afebrile, pulse rate ranges in 50-60, blood pressure ranges from 140- 200 systolic. She saturating fine on room air. Her diarrhea is mostly resolved. Objective Current Medications: Current Medications Sig/Renee Start time Last Medication Dose Route Stop Time Status Admin Acetaminophen 650 MG ONCE ONE 07/08 2030 DC 07/08 PO 07/08 Amoxicillin 500 MG TID 07/06 1400 AC 07/09 PO 0841 Apixaban 2.5 MG BID 07/07 2100 AC 07/09 PO 0841 Dextrose/Sodium 1,000 ML Q13H 07/07 0130 DC 07/07 Chloride IV 2256 Famotidine 20 MG DAILY 07/05 1100 AC 07/09 PO 0842 Gabapentin 100 MG Q8 07/04 1245 AC 07/09 PO 0515 Hydralazine HCl 100 MG TID 07/05 2100 AC 07/09 PO 0842 Losartan Potassium 50 MG QPM 07/07 2100 AC 07/08 PO 2134 Magnesium Oxide 400 MG ONE ONE 07/08 0930 DC 07/08 PO 07/08 0931 0941 Melatonin 5 MG AT BEDTIME 07/05 2100 AC 07/08 PO 2136 Polyethylene Glycol 17 GM DAILY 07/08 1200 AC 07/09 PO 0842 Potassium Chloride 20 MEQ 0930 07/08 0930 DC 07/08 PO 07/08 0931 0940 Senna/Docusate Sodium 2 TAB DAILY 07/08 1015 AC 07/09 PO 0842 Sertraline HCl 50 MG DAILY 07/05 1753 AC 07/09 PO 0841 Vital Signs & I&O Last 24 Hrs of Vitals and I&O: Vital Signs Date Time Temp Pulse Resp B/P B/P Pulse O2 O2 Flow FiO2 Mean Ox Delivery Rate 07/09 0844 97.6 62 18 140/60 98 Room Air 07/09 0100 66 140/60 07/09 0000 96 Room Air 07/083 99.0 73 17 190/62 96 Room Air 07/08 2133 64 200/70 04/24 2134 64 200/70 07/08 1600 99.4 63 15 142/58 96 Room Air 07/08 1448 62 190/60 07/08 0942 60 132/70 Intake & Output 07/09 1600 07/09 0800 07/09 0000 Intake Total 689 627 Output Total Balance 689 627 Intake, IV 0 0 Intake, Oral 0 Intake, Tube 439 377 Feeding Intake, Tube 250 250 Irrigant Number 1 0 Bowel Movements Exam General Appearance: sedated, lethargic Head: normal appearance Neck: supple Respiratory: normal breath sounds, chest non-tender, no respiratory distress Cardiovascular: regular rate/rhythm, edema Abdomen: soft, non-tender, COLOSTOMY BAG AND THE OTHER BACK FOR GASTRIC FLUID IN PLACE, NO ERYTHEMA NOTICED AROUND Back: normal inspection, normal range of motion Extremities: normal inspection, no edema Results Last 24 Hrs of Lab Results: Laboratory Tests 07/09/17 0420: Anion Gap 6, Estimated GFR > 60, BUN/Creatinine Ratio 17.1, Magnesium 1.9, CBC w Diff NO MAN DIFF REQ, RBC 3.27 L, MCV 90.6, MCH 30.9, MCHC 34.1, RDW 15.4 H, MPV 10.2, Gran % 57.3, Lymphocytes % 24.5, Monocytes % 11.4 H, Eosinophils % 6.4 H, Basophils % 0.4, Absolute Granulocytes 3.6, Absolute Lymphocytes 1.5, Absolute Monocytes 0.7 H, Absolute Eosinophils 0.4, Absolute Basophils 0 Impression/Plan Impression/Plan Impression/Plan: Ms Landaverde is a 86-year-old woman with PMHx of significant for right-sided MCA infarct, status post CVA, dementia since 2016, left-sided deficits, bedbound and wheelchair bound, atrial fibrillation on anticoagulation ELIQUS 2.5 twice daily, hypertension, hyperlipidemia, history of varicose veins, remote history of pulmonary embolism, stoped Coumadin 3 years ago, GERD, parsons diverticulosis coli left more than right, status post PEG tube placement in 2016 after CVA,TUBULAR ADENOMA, right renal artery stenosis, back pain, osteoarthritis, osteopenia, depression, anxiety, obesity, remote history of diabetes mellitus not on insulin , recurrent admissions to the hospital for diarrhea, dehydration was brought in by ambulance after she was found altered, unresponsive on 07/03/2017. Pertinent labs in the last 24 hrs: WBC 7.2 (07/03/17)-->5.3 (07/06/17) Hemoglobin 7.3(07/03/17)-->10.1(07/06/17) platelets 120(07/03/17)-->133(07/06/17) Sodium 145, Potassium 3.8 (07/03/17)-->3.8(07/06/17) Sr Ceatinine 1.0(07/03/17)-->0.8(07/06/17) ABG 7.30, pCO2 32, pO2 107 UA revealed moderate leukocyte esterase, protein 100, packed bacteria. UC (07/03/17) revealed growth of Proteus. Sensitive to Ampi, Cefazolin, Augmentin,Cipro, Gent. UC (07/05/17) revealed growth of GNR. CT head showed evidence of her old right MCA infarct,urinalysis showed moderate leukocyte esterase, protein 100, packed bacteria. CT abdomen and pelvis showed a large volume of stool with stercoral colitis chest x-ray showed cardiomegaly. Below is the plan: #1 Altered mental status- She was brought in by ambulance to the ED for altered mental status, unresponsiveness, failure to thrive, dehydration, persistent black diarrhea. According to the daughter, she was recently admitted to [facility] for lethargy, altered mental status, hypotension, diarrhea. She was given no antibiotics during her hospital stay. She was discharged from [place] on 07/01/2017 and since then she continued to have diarrhea/dehydration. * Altered Mental status most likely from diarrhea/dehydration versus bradycardia versus hypoglycemia versus hypotension from hypovolemia versus urinary tract infection versus abdominal infection. * She is currently at her baseline. #2 Sinus Bradycardia- Her heart rate is ranging from 50-60. She has stable asymptomatic sinus bradycardia. Her home dose of carvedilol was stopped and will not restart it on discharge #3 Hypotension-resolved and currently we treating her hypertension with her home medication regimen including losartan but her hydralazine was increased to 100 mg 3 times a day. Yesterday her blood pressure went into 200s we might increase her valsartan 200 mg after asking cardiology. #3 Acute kidney injury- Resolved with IV hydration and her creatinine is 0.7 today. #4 Sepsis of urological origin- on amoxicillin day 5 Urine culture grew Proteus mirabilis and was started on amoxicillin after sensitivity results. Today is her seventh day of antibiotic but fourth day of amoxicillin most likely we will continue amoxicillin for total of 7 days. We will repeat urinalysis and culture. ID recommendations appreciated. #6 upper GI bleed/melena- She had push enteroscope yesterday did not reveal any evidence of GI bleed. Patient might have follow-up with Study as outpatient if needed. Her H&H remained stable at this point. GI already signed off until less any overt GI bleed. #7 profuse diarrhea and Stercoral colitis- Resolving and follow-up x-ray abdomen doesn't show any significant colonic Fecal burden. #8Tube feedings - she is receiving Glucerna at rate of 60 mils per hour with 100 mL of water flushes every 4 hours. She is also on heart healthy diet and able to eat almost 25% of her diet. # 9 atrial fibrillation now in sinus rhythm Eliquis was restarted yesterday after ruling out GI bleed Hypertensioncurrently reasonably controlled with losartan and hydralazine. We will continue losartan 50 mg daily and hydralazine 100 mg 3 times a day. If her blood pressure remained elevated we might go up on the started. Hyperlipidemia patient takes Lipitor at home however patient family refused to continue Lipitor GERD continue Famtidine. DVT prophylaxis pharmacological with Eliquis Patient is full code PEG tube in place, tube feeding ordered Ruy Menjivar MD 07/09/17 1414: Impression/Plan Impression/Plan Recommendations: Ruy José M.D. have examined this patient, reviewed available EMR data, personally reviewed images, discussed with resident/PA/PAYROLL REPRESENTATIVE, discussed management plan with housestaff and nursing staff, discussed managment plan all of healthcare providers, discussed management plan with patient and/or family, agreed with resident/PA/PAYROLL REPRESENTATIVE. The past history and parts of the chart have been autopopulated. Impression 86 year old woman * diarrhea - improved, likely related to fecal impaction * Proteus UTI Plan -stool impaction seems to have subsided -complete course of amoxicillin per ID -cardiology follow up - stable bradycardia Telemetry hold, will ask cardiology if appropriate for gen med DVT prophylaxis at all times
[2017-07-09 08:44] VITALS: BP 140/60
--- NOTE | 2017-07-09 11:19 | PN- Infect Dx ---
Subjective Subjective: Afebrile. She complains of abdominal pain and, when questioned, she complains of pain in multiple areas. Objective Last 24 Hrs of Vital Signs/I&O Vital Signs Date Time Temp Pulse Resp B/P B/P Pulse O2 O2 Flow FiO2 Mean Ox Delivery Rate 07/09 0844 97.6 62 18 140/60 98 Room Air 07/09 0100 66 140/60 07/09 0000 96 Room Air 07/08 2243 99.0 73 17 190/62 96 Room Air 07/08 2134 64 200/70 07/08 2134 64 200/70 07/08 1600 99.4 63 15 142/58 96 Room Air 07/08 1448 62 190/60 Intake & Output 07/09 1600 07/09 0800 07/09 0000 Intake Total 689 627 Output Total Balance 689 627 Intake, IV 0 0 Intake, Oral 0 Intake, Tube 439 377 Feeding Intake, Tube 250 250 Irrigant Number 1 0 Bowel Movements Physical Exam Other Physical Findings: She appears comfortable in no acute distress Lungs are clear Heart regular rhythm with no murmur Abdomen is obese, soft, nontender with positive bowel sounds Extremities left upper extremity swelling persists Results Last 24 Hours of Lab Results: Laboratory Tests 07/09 07/09 0900 0420 Chemistry Sodium (137 - 145 mmol/L) 138 Potassium (3.5 - 5.1 mmol/L) 4.3 Chloride (98 - 107 mmol/L) 111 H Carbon Dioxide (22 - 30 mmol/L) 21 L Anion Gap (5 - 16) 6 BUN (7 - 17 mg/dL) 12 Creatinine (0.5 - 1.0 mg/dL) 0.7 Estimated GFR (>60 ml/min) > 60 BUN/Creatinine Ratio (7 - 25 %) 17.1 Magnesium (1.6 - 2.3 mg/dL) 1.9 Hematology CBC w Diff NO MAN DIFF REQ WBC (4.8 - 10.8 /CUMM) 6.2 RBC (4.20 - 5.40 /CUMM) 3.27 L Hgb (12.0 - 16.0 G/DL) 10.1 L Hct (37 - 47 %) 29.6 L MCV (81.0 - 99.0 FL) 90.6 MCH (27.0 - 31.0 PG) 30.9 MCHC (33.0 - 37.0 G/DL) 34.1 RDW (11.5 - 14.5 %) 15.4 H Plt Count (130 - 400 /CUMM) 158 MPV (7.4 - 10.4 FL) 10.2 Gran % (42.2 - 75.2 %) 57.3 Lymphocytes % (20.5 - 51.1 %) 24.5 Monocytes % (1.7 - 9.3 %) 11.4 H Eosinophils % (0 - 5 %) 6.4 H Basophils % (0.0 - 2.0 %) 0.4 Absolute Granulocytes (1.4 - 6.5 /CUMM) 3.6 Absolute Lymphocytes (1.2 - 3.4 /CUMM) 1.5 Absolute Monocytes (0.10 - 0.60 /CUMM) 0.7 H Absolute Eosinophils (0.0 - 0.7 /CUMM) 0.4 Absolute Basophils (0.0 - 0.2 /CUMM) 0 Urines Urine Color (YEL,AMB,STR) YEL Urine Clarity (CLEAR) CLEAR Urine pH (5.0 - 8.0) 6.0 Ur Specific [place] (1.001 - 1.035) 1.010 Urine Protein (NEG,<30 MG/DL) NEG Urine Ketones (NEG) NEG Urine Nitrite (NEG) NEG Urine Bilirubin (NEG) NEG Urine Urobilinogen (0.1 - 1.0 EU/dl) 0.2 Ur Leukocyte Esterase (NEG) NEG Ur Microscopic EXAM NOT REQUIRED Urine Hemoglobin (NEG) NEG Urine Glucose (N MG/DL) NEG Last 24 Hours of Klaus Results: Urine culture July 09 pending Recent Imaging Studies: Abdominal x-ray July 08 nonobstructed bowel gas pattern with no significant colonic stool burden Assessment/Plan ID Impression: Stable, with temperatures and white blood cell count remaining normal, on Amoxicillin, Day 5 of treatment for a Proteus UTI in the setting of initial hypothermic and transient hypotension, though suspect it may just represent asymptomatic bacteriuria. Suggestion: 1. Continue Amoxicillin
[2017-07-09] MEDS ORDERED: GABAPENTIN100 M2 PO (13:20)
--- NOTE | 2017-07-09 14:52 | Event Note ---
Event Note Event Note: I spoke with life insurance sales agent Shahzad Abreu MD regarding high systolic blood pressure if we have to make any changes in her antihypertensive medications and transferring Ms Elaina Landaverde to general medical floor. He wants to give her oral hydralazine for high systolic blood pressure as needed and he is okay to transfer her to general medical floor.
[2017-07-09 15:35] VITALS: BP 188/90
[2017-07-09 18:40] VITALS: BP 160/88
[2017-07-09 19:44] VITALS: BP 180/64
[2017-07-09 22:21] VITALS: BP 170/62
[2017-07-10 00:26] VITALS: BP 156/70
[2017-07-10 06:50] VITALS: BP 170/73
--- NOTE | 2017-07-10 07:12 | PN- Housestaff ---
Opal Carbajal MD,[facility] 07/10/17 0711: Subjective Follow-up For: - Altered mental status -Hypotension -Bradycardia -Hypoglycemia -Sepsis for urological origin -Diarrhea/ stercoral colitis/fecal impaction Subjective: Patient visited today, pleasantly was sleeping in bed comfortably in no acute distress, was arousable but not oriented. No fever or chills, no shortness of breathing, no chest pain, no other events. Swallow evaluation was done, puree and honey, but patient refused oral intake. Review of Systems Constitutional: Reports: see HPI. Objective Last 24 Hrs of Vital Signs/I&O Vital Signs Date Time Temp Pulse Resp B/P B/P Pulse O2 O2 Flow FiO2 Mean Ox Delivery Rate 07/10 1421 Nasal 2.0L Cannula 07/10 1407 98.2 75 18 160/90 95 Room Air 07/10 1353 75 160/90 07/10 0837 150/75 07/10 0829 Room Air 2.0L 07/10 0822 Room Air 2.0L 07/10 0800 96 Room Air 07/10 0650 99.0 82 18 170/73 96 Room Air 07/10 0521 82 170/73 07/10 0026 99.9 92 20 156/70 95 Room Air 07/10 0000 99.9 07/09 2235 100.9 07/09 2221 100.9 96 18 170/62 90 07/09 2000 87 180/64 07/09 1944 98.6 87 20 180/64 95 07/09 1840 160/88 07/09 1640 192/78 07/09 1535 99.6 68 18 188/90 98 Room Air 07/09 1533 188/90 Intake & Output 07/10 1600 07/10 0800 07/10 0000 Intake Total 034 517 5316 Output Total 2 Balance 249 342 3861 Intake, IV 0 Intake, Oral 0 25 Intake, Tube 480 480 450 Feeding Intake, Tube 200 200 800 Irrigant Number 2 1 2 Bowel Movements Output, Urine 2 Physical Exam General Appearance: Cooperative, No Acute Distress, arousable, not oriented Skin Temp/Moisture Exam: Warm/Dry Sepsis Skin Exam (color): Normal for Ethnicity HEENT: Atraumatic Cardiovascular: Normal S1, Normal S2 Lungs: Normal Air Movement Abdomen: Soft, No Tenderness Extremities: No Edema Current Medications: Current Medications Sig/Renee Start time Last Medication Dose Route Stop Time Status Admin Acetaminophen 650 MG ONCE ONE 07/09 2230 DC 07/09 PO 07/09 2231 2235 Amlodipine Besylate 10 MG ONCE ONE 07/09 1645 DC 07/09 PO 07/09 1646 1640 Amlodipine Besylate 10 MG .STK-MED ONE 07/09 1635 DC PO 07/09 1636 Amoxicillin 500 MG TID 07/06 1400 AC 07/10 PO 1354 Apixaban 2.5 MG BID 07/07 2100 AC 07/10 PO 0830 Famotidine 20 MG DAILY 07/05 1100 AC 07/10 PO 0830 Gabapentin 100 MG DAILY 07/09 1320 AC 07/10 PO 0830 Gabapentin 100 MG Q8 07/04 1245 DC 07/09 PO 1327 Hydralazine HCl 100 MG TID 07/05 2100 AC 07/10 PO 1353 Lorazepam 1 MG ONE ONE 07/09 1800 DC 07/09 PO 07/09 1801 1752 Losartan Potassium 50 MG QPM 07/07 2100 AC 07/09 PO 1533 Melatonin 5 MG AT BEDTIME 07/05 2100 AC 07/09 PO 1952 Polyethylene Glycol 17 GM DAILY 07/08 1200 AC 07/09 PO 0842 Senna/Docusate Sodium 2 TAB DAILY 07/08 1015 AC 07/09 PO 0842 Sertraline HCl 50 MG DAILY 07/05 1753 AC 07/10 PO 0830 Last 24 Hrs of Lab/Klaus Results Last 24 Hrs of Labs/Mics: Microbiology 07/10 2239 BLOOD: Blood Culture - RES 07/10 2239 BLOOD: Blood Culture - RES Assessment/Plan Assessment: Ms Landaverde is a 86-year-old woman with PMHx of significant for right-sided MCA infarct, status post CVA, dementia since 2015, left-sided deficits, bedbound and wheelchair bound, atrial fibrillation on anticoagulation ELIQUS 2.5 twice daily, hypertension, hyperlipidemia, history of varicose veins, remote history of pulmonary embolism, stoped Coumadin 3 years ago, GERD, parsons diverticulosis coli left more than right, status post PEG tube placement in 2016 after CVA,TUBULAR ADENOMA, right renal artery stenosis, back pain, osteoarthritis, osteopenia, depression, anxiety, obesity, remote history of diabetes mellitus not on insulin , recurrent admissions to the hospital for diarrhea, dehydration was brought in by ambulance after she was found altered, unresponsive on 07/03/2017. Pertinent labs in the last 24 hrs: WBC 7.2 (07/03/17)-->5.3 (07/06/17) Hemoglobin 7.3(07/03/17)-->10.1(07/06/17) platelets 120(07/03/17)-->133(07/06/17) Sodium 145, Potassium 3.8 (07/03/17)-->3.8(07/06/17) Sr Ceatinine 1.0(07/03/17)-->0.8(07/06/17) ABG 7.30, pCO2 32, pO2 107 UA revealed moderate leukocyte esterase, protein 100, packed bacteria. UC (07/03/17) revealed growth of Proteus. Sensitive to Ampi, Cefazolin, Augmentin,Cipro, Gent. UC (07/05/17) revealed growth of GNR. CT head showed evidence of her old right MCA infarct,urinalysis showed moderate leukocyte esterase, protein 100, packed bacteria. CT abdomen and pelvis showed a large volume of stool with stercoral colitis chest x-ray showed cardiomegaly. Patient was initially admitted to ICU, with stabilization was transferred to general medicine floor. Altered mental status She was brought in by ambulance to the ED for altered mental status, unresponsiveness, failure to thrive, dehydration, persistent black diarrhea. According to the daughter, she was recently admitted to [facility] for lethargy, altered mental status, hypotension, diarrhea. She was given no antibiotics during her hospital stay. She was discharged from [place] on 07/01 and since then she continued to have diarrhea/dehydration. * Altered Mental status most likely from diarrhea/dehydration versus bradycardia versus hypoglycemia versus hypotension from hypovolemia versus urinary tract infection versus abdominal infection. * She is currently at her baseline. * Continue to monitor #2 Sinus Bradycardia- Her heart rate is ranging from 50-60. She has stable asymptomatic sinus bradycardia. Her home dose of carvedilol was stopped and will not restart it on discharge - follow cardiology #3 Hypotension-resolved and currently we treating her hypertension with her home medication regimen including losartan but her hydralazine was increased to 100 mg 3 times a day. Blood Pressures were high lately -Started on hydralazine 100 mg 3 times a day -we will follow #3 Acute kidney injury- Resolved with IV hydration #4 Sepsis of urological origin- on amoxicillin day 6 Urine culture grew Proteus mirabilis and was started on amoxicillin after sensitivity results. - Follow ID consult #6 upper GI bleed/melena- She had push enteroscope yesterday did not reveal any evidence of GI bleed. Patient might have follow-up with Study as outpatient if needed. Her H&H remained stable at this point. GI already signed off until less any overt GI bleed. #7 profuse diarrhea and Stercoral colitis- Resolving and follow-up x-ray abdomen doesn't show any significant colonic Fecal burden. #8Tube feedings - she is receiving Glucerna at rate of 60 mils per hour with 100 mL of water flushes every 4 hours. She is also on heart healthy diet and able to eat almost 25% of her diet. # 9 atrial fibrillation now in sinus rhythm Eliquis was restarted after ruling out GI bleed Hypertensioncurrently reasonably controlled with losartan and hydralazine. We will continue losartan 50 mg daily and hydralazine 100 mg 3 times a day. If her blood pressure remained elevated we might go up on the started. Puree and honey per nutrition consult, patient refused taking po intake DVT prophylaxis pharmacological with Eliquis Patient is full code PEG tube in place, tube feeding ordered Problem List: 1. Altered mental status Pain Ratin Pain Location: None Pain Goal: Pain 4 or less Pain Plan: continue current plan Tomorrow's Labs & Rationales: CBC BEP Christopher AROAR,Malissa 07/10/17 1701: Attending MD Review Statement Attending Statement Attending MD Statement: examined this patient, discuss w/resident/PA/ASSISTANT NURSE MANAGER, agreed w/resident/PA/ASSISTANT NURSE MANAGER, discussed with family, reviewed EMR data (avail), discussed with nursing, discussed with case mgmt, amended to note Attending Assessment/Plan: Patient seen and examined. Transferred out of the ICU overnight. Currently resting comfortably and not in acute distress. Afebrile hemodynamically stable. Blood pressure is controlled. Nursing staff with concerns about patient taking meals orally. Patient was noted to be drooling saliva on examination. Swallow evaluation was obtained however patient declined to participate in therapy. Although lethargic she is awake and able to answer simple questions. She reports some groin pain. On exam she has what appears to be fungal rash in the groin area. Abdomen is otherwise soft and nontender with normal bowel sounds. She denies any difficulty breathing. She denies any chest pain. I had an extensive conversation with the patient's daughter. She is quite frustrated with her mother's condition. She reports repeated hospitalizations for various conditions ever since she suffered her stroke a few years ago. Currently at home patient requires a 24-hour caregiver. Daughter however reports that even with the care unit in case you are having challenges caring for the patient. She is a [employer] lift. Patient does have feeding tube in place however daughter reports that at home feeding tube is used mainly to provide additional hydration. She reports that patient takes all her meals orally. But as of the impression that patient has adequate intake orally however she has had hospitalizations in the past for hypoglycemia. Her hypoglycemic medications were stopped in the past on account of this. On admission for this hospitalization as well patient was again found to be hypoglycemic. She is unclear if she is sustaining adequate oral intake. Daughter states that the PEG tube is not being used for feeding at home. Problems: 1. Altered mental status; resolved. 2. Sinus bradycardia; resolved. 3. Hypertension; patient initially presented with hypotension. Blood pressure has been on the right but is currently under control. 4. Sepsis of urologic origin. 5. Stecoral colitis with diarrhea 6. atrial fibrillation; now in sinus rhythm. Patient on anticoagulation with Eliquis. 7. Dysphagia Plan: -Cardiology follow-up appreciated. Blood pressure currently stable. Continue current regimen. -Continue antibiotic course as recommended by the ID service. -Patient is declining oral intake. Continue tube feeding. Repeat swallow evaluation can be done at a later date. -If her blood pressure remains stable on the current regimen we may begin discharge planning.
[2017-07-10 08:37] VITALS: BP 150/75
--- NOTE | 2017-07-10 12:51 | PN- Cardiology ---
Subjective Subjective: Patient is resting comfortably. Mental status appears at baseline. Objective Vital Signs and I&Os Vital Signs Date Time Temp Pulse Resp B/P B/P Pulse O2 O2 Flow FiO2 Mean Ox Delivery Rate 07/10 0837 150/75 07/10 0829 Room Air 2.0L 07/10 0822 Room Air 2.0L 07/10 0800 96 Room Air 07/10 0650 99.0 82 18 170/73 96 Room Air 07/10 0521 82 170/73 07/10 0026 99.9 92 20 156/70 95 Room Air 07/10 0000 99.9 07/09 2235 100.9 07/09 2221 100.9 96 18 170/62 90 07/09 2000 87 180/64 07/09 1944 98.6 87 20 180/64 95 07/09 1840 160/88 07/09 1640 192/78 07/09 1535 99.6 68 18 188/90 98 Room Air 07/09 1533 188/90 Intake & Output 07/10 1600 07/10 0800 07/10 0000 07/09 1600 07/09 0800 07/09 0000 Intake Total 680 1275 830 689 627 Output Total 2 200 Balance 678 1275 630 689 627 Intake, IV 0 0 Intake, Oral 25 50 0 Intake, Tube 480 450 480 439 377 Feeding Intake, Tube 200 800 300 250 250 Irrigant Number 1 1 2 1 1 0 Bowel Movements Output, Urine 2 200 Physical Exam: General: no apparent distress. Eyes: No obvious scleral icterus. HEENT: No jugular venous distention or abnormal jugular venous pulsations. Cardiovascular: Normal intensity S1/S2. Regular bradycardia Respiratory: Lungs clear to auscultation bilaterally. Abdomen: no guarding or rebound tenderness. Musculoskeletal: No clubbing or cyanosis noted; no edema Skin: Warm Lymph: No gross lymphadenopathy. Current Medications: Current Medications Sig/Renee Start time Last Medication Dose Route Stop Time Status Admin Acetaminophen 650 MG ONCE ONE 07/09 2229 DC 07/09 PO 07/09 Amlodipine Besylate 10 MG ONCE ONE 07/09 1645 DC 07/09 PO 07/09 164 1640 Amlodipine Besylate 10 MG .STK-MED ONE 07/09 1635 DC PO 07/09 1636 Amoxicillin 500 MG TID 07/06 1400 AC 07/10 PO 0830 Apixaban 2.5 MG BID 07/07 2100 AC 07/10 PO 0830 Famotidine 20 MG DAILY 07/05 1100 AC 07/10 PO 0830 Gabapentin 100 MG DAILY 07/09 1320 AC 07/10 PO 0830 Gabapentin 100 MG Q8 07/04 1245 DC 07/09 PO 1327 Hydralazine HCl 100 MG TID 07/05 2100 AC 07/10 PO 0521 Lorazepam 1 MG ONE ONE 07/09 1800 DC 07/09 PO 07/09 1801 1752 Losartan Potassium 50 MG QPM 07/07 2100 AC 07/09 PO 1533 Melatonin 5 MG AT BEDTIME 07/05 2100 AC 07/09 PO 1952 Polyethylene Glycol 17 GM DAILY 07/08 1200 AC 07/09 PO 0842 Senna/Docusate Sodium 2 TAB DAILY 07/08 1015 AC 07/09 PO 0842 Sertraline HCl 50 MG DAILY 07/05 175 AC 07/10 PO 0830 Results Last 48 Hrs of Labs/Mics: Laboratory Tests 07/09/17 0900: Urine Color YEL, Urine Clarity CLEAR, Urine pH 6.0, Ur Specific [place] 1.010, Urine Protein NEG, Urine Ketones NEG, Urine Nitrite NEG, Urine Bilirubin NEG, Urine Urobilinogen 0.2, Ur Leukocyte Esterase NEG, Ur Microscopic EXAM NOT REQUIRED, Urine Hemoglobin NEG, Urine Glucose NEG 07/09/17 0420: Anion Gap 6, Estimated GFR > 60, BUN/Creatinine Ratio 17.1, Magnesium 1.9, CBC w Diff NO MAN DIFF REQ, RBC 3.27 L, MCV 90.6, MCH 30.9, MCHC 34.1, RDW 15.4 H, MPV 10.2, Gran % 57.3, Lymphocytes % 24.5, Monocytes % 11.4 H, Eosinophils % 6.4 H, Basophils % 0.4, Absolute Granulocytes 3.6, Absolute Lymphocytes 1.5, Absolute Monocytes 0.7 H, Absolute Eosinophils 0.4, Absolute Basophils 0 Assessment/Plan Assessment/Plan 1. Hypotension/hypovolemia due to diarrhea resolved 2. Sinus bradycardia 3. Anemia requiring transfusion 4. History of paroxysmal atrial fibrillation on outpatient Eliquis 5. Prior CVA 6. History of dementia/hypertension/hyperlipidemia/remote pulmonary emboli 7. History of diabetes/uterine fibroids Patient's blood pressure is improving. Would hold off on further up titration for now to avoid overcorrection. Heart rate now appears within normal limits. Rolly Abreu MD [facility] Continue telemetry? Not applicable
[2017-07-10 14:07] VITALS: BP 160/90
--- NOTE | 2017-07-10 16:37 | PN- Infect Dx ---
Subjective Subjective: T-max 100.9. She has no complaints. She did have one loose stool reported yesterday. Objective Last 24 Hrs of Vital Signs/I&O Vital Signs Date Time Temp Pulse Resp B/P B/P Pulse O2 O2 Flow FiO2 Mean Ox Delivery Rate 07/10 1421 Nasal 2.0L Cannula 07/10 1407 98.2 75 18 160/90 95 Room Air 07/10 1353 75 160/90 07/10 0837 150/75 07/10 0829 Room Air 2.0L 07/10 0822 Room Air 2.0L 07/10 0800 96 Room Air 07/10 0650 99.0 82 18 170/73 96 Room Air 07/10 0521 82 170/73 07/10 0026 99.9 92 20 156/70 95 Room Air 07/10 0000 99.9 07/09 2235 100.9 07/09 2221 100.9 96 18 170/62 90 07/09 2000 87 180/64 07/09 1944 98.6 87 20 180/64 95 07/09 1840 160/88 07/09 1640 192/78 Intake & Output 07/10 1600 07/10 0800 07/10 0000 Intake Total 297 929 8027 Output Total 2 Balance 142 726 7800 Intake, IV 0 Intake, Oral 0 25 Intake, Tube 480 480 450 Feeding Intake, Tube 200 200 800 Irrigant Number 2 1 2 Bowel Movements Output, Urine 2 Physical Exam Other Physical Findings: She appears comfortable in no acute distress Lungs are clear anteriorly Heart regular rhythm with no murmur Abdomen is obese, soft, nontender with positive bowel sounds Extremities no cyanosis, clubbing or edema Results Last 24 Hours of Lab Results: Laboratory Tests 07/10 1545 Other Body Source Fluid WBC Pending Fld Total RBCs Counted Pending Last 24 Hours of Klaus Results: Blood cultures 2 July 09 negative Urine culture July 09 negative Assessment/Plan ID Impression: Low-grade fever last night, with her white blood cell count yesterday remaining normal, on Amoxicillin, Day 6 of treatment for a Proteus UTI in the setting of initial hypothermic and transient hypotension. She did have one loose stool yesterday and, if diarrhea persists, would rule out C. difficile. Suggestion: 1. Stool for C. difficile if diarrhea persists 2. Repeat CBC in the a.m. 3. Continue Amoxicillin
[2017-07-10 21:19] VITALS: BP 128/58
[2017-07-11 05:56] VITALS: BP 142/60
[2017-07-11 08:22] LABS: ABSOLUTE BASOPHIL COUNT 0 /CUMM (0.0-0.2); ABSOLUTE EOSINOPHIL COUNT 0.2 /CUMM (0.0-0.7); ABSOLUTE GRANULOCYTE CT 6.4 /CUMM (1.4-6.5); ABSOLUTE LYMPH COUNT 1.8 /CUMM (1.2-3.4); ABSOLUTE MONOCYTE COUNT 1.2 /CUMM (0.10-0.60); BASOPHIL % 0.4 % (0.0-2.0); EOSINOPHIL % 2.4 % (0-5); GRANULOCYTE % 66.2 % (42.2-75.2); MEAN CORPUSCULAR HGB 30.7 PG (27.0-31.0); MEAN CORPUSCULAR HGB CONC 33.6 G/DL (33.0-37.0); MEAN CORPUSCULAR VOLUME 91.3 FL (81.0-99.0); MEAN PLATELET VOLUME 10.5 FL (7.4-10.4); PLATELET COUNT 182 /CUMM (130-400); RBC DISTRIBUTION WIDTH 16.2 % (11.5-14.5); RED BLOOD CELL CT 2.69 /CUMM (4.20-5.40)
--- NOTE | 2017-07-11 08:32 | PN- Housestaff ---
Opal Carbajal MD,[facility] 07/11/17 0832: Subjective Follow-up For: - Altered mental status -Hypotension -Bradycardia -Hypoglycemia -Sepsis for urological origin -Diarrhea/ stercoral colitis/fecal impaction Subjective: Patient visited today, pleasantly was sleeping in bed comfortably in no acute distress, was arousable but not oriented. No fever or chills, no shortness of breathing, no chest pain, no other events. Swallow evaluation was done yesterday, puree and honey, but patient refused oral intake.. Had high T of 100.9 overnight, bowel movements 3-4/day and is on amoxicilline. Review of Systems Constitutional: Reports: see HPI. Objective Last 24 Hrs of Vital Signs/I&O Vital Signs Date Time Temp Pulse Resp B/P B/P Pulse O2 O2 Flow FiO2 Mean Ox Delivery Rate 07/11 1121 98.8 07/11 0800 96 Room Air 07/11 0646 99.4 07/11 0609 99.6 07/11 0556 100.9 90 22 142/60 95 Room Air 07/11 0554 100.9 07/10 2119 99.1 85 18 128/58 96 Room Air 07/10 2037 85 128/60 07/10 2037 85 128/60 07/10 1421 Nasal 2.0L Cannula 07/10 1407 98.2 75 18 160/90 95 Room Air 07/10 1353 75 160/90 Intake & Output 07/11 1600 07/11 0800 07/11 0000 Intake Total 680 280 Output Total Balance 680 280 Intake, Tube 480 180 Feeding Intake, Tube 200 100 Irrigant Number 1 2 Bowel Movements Physical Exam General Appearance: Alert, No Acute Distress Skin: skin rash in groins Skin Temp/Moisture Exam: Warm/Dry HEENT: Atraumatic Cardiovascular: Normal S1, Normal S2 Lungs: Normal Air Movement Current Medications: Current Medications Sig/Renee Start time Last Medication Dose Route Stop Time Status Admin Acetaminophen 1,000 MG ONCE ONE 07/11 0545 DC 07/11 N/A 1 UNIT IV 07/11 0559 0554 Amoxicillin 500 MG TID 07/06 1400 AC 07/11 PO 0857 Apixaban 2.5 MG BID 07/07 2100 AC 07/11 PO 0858 Famotidine 20 MG DAILY 07/05 1100 AC 07/11 PO 0859 Gabapentin 100 MG DAILY 07/09 1320 AC 07/11 PO 0858 Hydralazine HCl 100 MG TID 07/05 2100 AC 07/11 PO 0857 Losartan Potassium 50 MG QPM 07/07 2099 AC 07/10 PO 2036 Melatonin 5 MG AT BEDTIME 07/05 2099 AC 07/10 PO 2036 Nystatin 1 RU TID 07/11 0919 07/11 TOP 1052 Polyethylene Glycol 17 GM DAILY 07/08 1200 AC 07/09 PO 0842 Senna/Docusate Sodium 2 TAB DAILY 07/08 1015 AC 07/09 PO 0842 Sertraline HCl 50 MG DAILY 07/05 1753 AC 07/11 PO 0859 Last 24 Hrs of Lab/Klaus Results Last 24 Hrs of Labs/Mics: Laboratory Tests 07/11/17 0620: CBC w Diff NO MAN DIFF REQ, RBC 2.69 L, MCV 91.3, MCH 30.7, MCHC 33.6, RDW 16.2 H, MPV 10.5 H, Gran % 66.2, Lymphocytes % 18.2 L, Monocytes % 12.8 H, Eosinophils % 2.4, Basophils % 0.4, Absolute Granulocytes 6.4, Absolute Lymphocytes 1.8, Absolute Monocytes 1.2 H, Absolute Eosinophils 0.2, Absolute Basophils 0 07/10/17 1545: Fluid WBC Cancelled, Fld Total RBCs Counted Cancelled 07/10/17 1450: Fluid Glucose Cancelled, Fluid Total Protein Cancelled, Fluid Albumin Cancelled, Fluid LDH Cancelled, Fluid Amylase Cancelled Microbiology 07/11 1022 STOOL: Clostridium difficile Toxin A & B - RECD 07/11 1005 URINE ROUT: Urine Culture - COLB 07/11 916 URINE ROUT: Urine Culture - CAN Cancelled: Cancelled via OE: Per MD Decision 07/11 916 LOWER RESP: Respiratory Culture - COLB 07/11 916 LOWER RESP: Gram Stain - COLB 07/11 916 BLOOD: Blood Culture - COLB 07/11 916 BLOOD: Blood Culture - COLB 07/10 1450 BODY FLUID: Body Fluid Culture - CAN Cancelled: ORDERED ON WRONG PATIENT PER CHUCK.CULI 07/10 1450 BODY FLUID: Gram Stain - CAN Cancelled: ORDERED ON WRONG PATIENT PER CHUCK.CULI Assessment/Plan Assessment: Ms Landaverde is a 86-year-old woman with PMHx of significant for right-sided MCA infarct, status post CVA, dementia since 2016, left-sided deficits, bedbound and wheelchair bound, atrial fibrillation on anticoagulation ELIQUS 2.5 twice daily, hypertension, hyperlipidemia, history of varicose veins, remote history of pulmonary embolism, stoped Coumadin 3 years ago, GERD, parsons diverticulosis coli left more than right, status post PEG tube placement in 2016 after CVA,TUBULAR ADENOMA, right renal artery stenosis, back pain, osteoarthritis, osteopenia, depression, anxiety, obesity, remote history of diabetes mellitus not on insulin , recurrent admissions to the hospital for diarrhea, dehydration was brought in by ambulance after she was found altered, unresponsive on 07/03/2017. Pertinent labs in the last 24 hrs: WBC 7.2 (07/03/17)-->5.3 (07/06/17) Hemoglobin 7.3(07/03/17)-->10.1(07/06/17) platelets 120(07/03/17)-->133(07/06/17) Sodium 145, Potassium 3.8 (07/03/17)-->3.8(07/06/17) Sr Ceatinine 1.0(07/03/17)-->0.8(07/06/17) ABG 7.30, pCO2 32, pO2 107 UA revealed moderate leukocyte esterase, protein 100, packed bacteria. UC (07/03/17) revealed growth of Proteus. Sensitive to Ampi, Cefazolin, Augmentin,Cipro, Gent. UC (07/05/17) revealed growth of GNR. CT head showed evidence of her old right MCA infarct,urinalysis showed moderate leukocyte esterase, protein 100, packed bacteria. CT abdomen and pelvis showed a large volume of stool with stercoral colitis chest x-ray showed cardiomegaly. Patient was initially admitted to ICU, with stabilization was transferred to general medicine floor. #1Altered mental status She was brought in by ambulance to the ED for altered mental status, unresponsiveness, failure to thrive, dehydration, persistent black diarrhea. According to the daughter, she was recently admitted to [facility] for lethargy, altered mental status, hypotension, diarrhea. She was given no antibiotics during her hospital stay. She was discharged from [facility] on 07/01 and since then she continued to have diarrhea/dehydration. * Altered Mental status most likely from diarrhea/dehydration versus bradycardia versus hypoglycemia versus hypotension from hypovolemia versus urinary tract infection versus abdominal infection. * She is currently at her baseline. * Continue to monitor #2 Sinus Bradycardia- Her heart rate is ranging from 50-60. She has stable asymptomatic sinus bradycardia. Her home dose of carvedilol was stopped and will not restart it on discharge - follow cardiology #3 Hypotension-resolved and currently we treating her hypertension with her home medication regimen including losartan but her hydralazine was increased to 100 mg 3 times a day. Blood Pressures were high lately -Started on hydralazine 100 mg 3 times a day -we will follow #3 Acute kidney injury- Resolved with IV hydration #4 Sepsis of urological origin- on amoxicillin day 6 Urine culture grew Proteus mirabilis and was started on amoxicillin after sensitivity results. - Follow ID consult #6 upper GI bleed/melena- She had push enteroscope yesterday did not reveal any evidence of GI bleed. Patient might have follow-up with Study as outpatient if needed. Her H&H remained stable at this point. GI already signed off until less any overt GI bleed. #7 profuse diarrhea and Stercoral colitis- Resolving and follow-up x-ray abdomen doesn't show any significant colonic Fecal burden. #8Tube feedings - she is receiving Glucerna at rate of 60 mils per hour with 100 mL of water flushes every 4 hours. She is also on heart healthy diet and able to eat almost 25% of her diet. # 9 atrial fibrillation now in sinus rhythm Eliquis was restarted after ruling out GI bleed Hypertensioncurrently reasonably controlled with losartan and hydralazine. We will continue losartan 50 mg daily and hydralazine 100 mg 3 times a day. If her blood pressure remained elevated we might go up on the started. #10 Low grade fever Patient had low grade fever last night - parsons culture - Bilateral LE doppler - CXR - C diff Puree and honey per nutrition consult, patient refused taking po intake DVT prophylaxis pharmacological with Eliquis Patient is full code PEG tube in place, tube feeding ordered Problem List: 1. Atrial fibrillation 2. Altered mental status Pain Ratin Pain Location: None Pain Goal: Pain 4 or less Pain Plan: Continue current plan Tomorrow's Labs & Rationales: CBC BEP Christopher ARORA,Malissa 07/11/17 1143: Attending MD Review Statement Attending Statement Attending MD Statement: examined this patient, discuss w/resident/PA/STAFFING RECRUITER, agreed w/resident/PA/STAFFING RECRUITER, reviewed EMR data (avail), discussed with nursing, discussed with case mgmt, amended to note Attending Assessment/Plan: Patient seen and examined. she had a temperature 100.9 earlier this morning. She is hemodynamically stable. Is lethargic but awake and oriented. Denies any cough. Denies shortness of breath. Denies abdominal pain. Also staff reports several loose bowel movement yesterday. She complains of right lower extremity swelling pain. On examination she has right lower extremity with no tenderness. Distal pulses weakly palpable. No cyanosis. Problems: 1. Fever Recommendations: -Obtain pancultures. -Obtain chest x-ray. -Doppler bilateral lower extremities to rule out DVT. Patient was off anticoagulation due to GI bleed concern on admission. -Continue anticoagulant therapy. -Continue current antibiotic course. Follow-up with the ID service.
--- NOTE | 2017-07-11 08:37 | Discharge Summary ---
Visit Information Visit Dates Admission Date: 07/03/17 Discharge Date: 07/14/17 Hospital Course Course Attending Physician: Malissa White MD Primary Care Physician: Patient Has No Primary Care Dr Hospital Course: This is a 86-year-old female with past medical history significant for right- sided MCA infarct, status post CVA, dementia since 2016, left-sided deficits, bedbound and wheelchair bound, atrial fibrillation on anticoagulation ELIQUS 2.5 twice daily, hypertension, hyperlipidemia, history of varicose veins, remote history of pulmonary embolism, stop Coumadin 3 years ago, GERD, parsons diverticulosis coli left more than right, status post PEG tube placement in 2016 after CVA,TUBULAR ADENOMA, right renal artery stenosis, back pain, osteoarthritis, osteopenia, depression, anxiety, obesity, remote history of diabetes mellitus not on insulin, recurrent admissions to the hospital for diarrhea, dehydration was brought in by ambulance after she was found altered, unresponsive on 07/03/2017. Vitals at the time of presentation Afebrile, heart rate varying between 36-46, blood pressure 84/50 improved to 107 /53 after normal saline bolus, saturating at 100 on 2 L. Pertinent labs WBC 5.7, hemoglobin 10.5, hematocrit 30, platelets 125 Sodium 143, potassium 3.5, BUN 22 and creatinine 1, glucose 149 ABG 7.30, 15, 32 urinalysis showed moderate leukocyte esterase, protein 100, packed bacteria. CT head showed evidence of her old right MCA infarct,urinalysis showed moderate leukocyte esterase, protein 100, packed bacteria. CT abdomen and pelvis showed a large volume of stool with stercoral colitis chest x-ray showed cardiomegaly. Following orders were addressed while patient was in ICU Metabolic encephalopathy/ Altered mental status in the setting of severe dehydration from diarrhea: She was brought in by ambulance to the ED for altered mental status, unresponsiveness, failure to thrive, dehydration, persistent black diarrhea. According to the daughter, she was recently admitted to [facility] for lethargy, altered mental status, hypotension, diarrhea, she continued to have diarrhea after the discharge. During the stay in the ICU in [place] patient received IV hydration mental status improved gradually Asymptomatic Sinus Bradycardia Patient was in bradycardia at the time of admission, heart rate ranging in between 35-45. ACS was ruled out with negative sets of troponin and EKG.Telemetry tracings showed sinus bradycardia. Initially she was kept on pacer pads, and home dose of carvedilol was stopped. Patient remained symptom-free, she was evaluated by cardiology recommended to keep her off the beta rajiv for now. Severe Hypotension Patient was hypotensive on admission (80/50 ), likely from severe diarrhea and dehydration .blood pressure improved with aggressive IV hydration, without any pressors. Antihypertensives were held, after 48 hours blood pressure was stable and home dose of hydralazine and losartan restarted. Carvedilol was kept on hold in the setting of sinus bradycardia. Echocardiogram was done that showed normal EF > 55 %, without any wall motion abnormalities. Prerenal RETA: Creatinine 1.2 at the time of admission, improved with IV hydration. Sepsis of urological origin urinalysis showed moderate leukocyte esterase, protein 100, packed bacteria. Patient couldn't provide any complaints. However urine cultures positive for gram-negative rods- proteus. her positive urine culture likely represents asymptomatic bacteriuria, but she is unable to provide a reliable history and, as she was hypothermic and hypotensive on admission-she was started on IV ceftriaxone. On final culture and sensitivity results she was started on amoxicillin (for a total of 5 days) finished on July 11. Nonionic anionic gap metabolic acidosis Patient had metabolic acidosis, pH 7.30, bicarbonate 15, no anionic gap, Most likely from diarrhea, resolved on discharge upper GI bleed/melena Patient presented with persistent ongoing diarrhea, black colored stools. She had 4 more episodes of diarrhea in the emergency room which are guaiac-positive. patient had long-standing history of gastrointestinal issues, worked up by Dr. Belcher and Dr. Buckner in the past. Patient underwent upper endoscopy in August 2016 which was normal. she also underwent colonoscopy in 2017 which showed pandiverticulosis, internal and external hemorrhoids. Push enteroscopy was done during ICU admission which did not reveal any active source of bleeding. She was restarted on her home dose of Eliquis 2.5 mg twice a day. No active bleeding was noted during ICU stay. diarrhea and Stercoral colitis she had been having profuse diarrhea ongoing for months, on and off. CT abdomen showed large volume of stool within the rectum and circumferential thickening within the rectal mucosa indicating the likelihood of underlying stercoral colitis. Patient was given multiple enemas resulted in resolution of her fecal impaction. Currently her diarrhea has been resolved. Atrial fibrillation now in sinus rhythm eliqus restarted based on cardio nad gastro recommendtaions on 07/07/2017 Hyperlipidemia patient takes Lipitor at home however patient family refused to continue Lipitor GERD continued IV Protonix DVT prophylaxis alps/eliqus Patient is full code Tube feeds and patient is also getting oral diet and she is able to take almost 25%. Database Management System Specialist are on board and they will calculate calorie intake. PEG tube in place Allergies: Coded Allergies: NO KNOWN ALLERGIES (05/29/15) Disposition Summary Disposition Principal Diagnosis: Metabolic encephalopathy/ Altered mental status in the setting of severe dehydration from diarrhea: Additional Diagnosis: Asymptomatic Sinus Bradycardia and hypotension Discharge Disposition: SNF Discharge Instructions General Discharge Information Code Status: Full Code Patient's Diet: TUBE feed Patient's Activity: As tolerated Follow-Up Instructions/Appts: Please follow-up with the primary care physician within 1-2 weeks after discharge Medications at Discharge Discharge Medications: Stop taking the following medications: Hydralazine HCl (Hydralazine HCl) 50 MG TABLET ORAL THREE TIMES DAILY Carvedilol (Carvedilol) 3.125 MG TABLET ORAL TWICE DAILY Qty = 160 Continue taking these medications: Losartan Potassium (Losartan Potassium) 50 MG TABLET 1 Tablet ORAL Every night Qty = 60 Comments: LAST GIVEN 05/13/17 @ 1015 Atorvastatin Calcium (Atorvastatin Calcium) 80 MG TABLET 1 Tablet ORAL 5 PM Qty = 30 Comments: LAST GIVEN 05/12/17 @ 1730 Ferrous Sulfate (IRON) 325 MG (65 MG IRON) TABLET 1 Tablet ORAL DAILY Comments: NOT GIVEN IN HOSPITAL Pantoprazole Sodium (Pantoprazole Sodium) 40 MG TABLET.DR 1 Tablet ORAL DAILY Qty = 60 Comments: NOT GIVEN IN HOSPITAL OMEPRAZOLE GIVEN 02/09 @ 700 AM Sertraline HCl (Sertraline HCl) 25 MG TABLET 2 Tablet ORAL DAILY Qty = 30 Comments: Last Taken: 07/14/17 Time: 0900AM Multivitamin (Multivitamins) 1 EACH CAPSULE 1 Tablet ORAL DAILY Comments: NOT GIVEN IN HOSPITAL Ergocalciferol (Vitamin D2) (Vitamin D2) 50,000 UNIT CAPSULE 1 Capsule ORAL EVERY FRIDAY Qty = 12 Comments: NOT GIVEN IN HOSPITAL Apixaban (Eliquis) 2.5 MG TABLET 1 Tablet ORAL TWICE DAILY Comments: Last Taken: 07/14/17 Time: 0900AM Vitamin B Complex (Super B-50 Complex) 1 EACH CAPSULE 1 Capsule ORAL DAILY Comments: NOT GIVEN IN HOSPITAL Lactobacillus Acidophilus (Probiotic) 10 BILLION CELL CAPSULE 1 Capsule ORAL DAILY Comments: NOT GIVEN IN HOSPITAL Acetaminophen (Acetaminophen) 325 MG TABLET 2 Tablet ORAL THREE TIMES DAILY Comments: NOT GIVEN IN HOSPITAL Gabapentin (Gabapentin) 100 MG CAPSULE 1 Capsule ORAL DAILY Comments: Last Taken: 07/14/17 Time: 0900AM Start taking the following new medications: Polyethylene Glycol 3350 (Miralax) 17 GRAM/DOSE POWDER 17 Gram ORAL DAILY Qty = 30 No Refills Instructions: pLEASE HOLD IF LOOSE STOOL Comments: Last Taken: 07/13/17 Time: 0900AM Sennosides/Docusate Sodium (Senna Plus Tablet) 8.6 MG-50 MG TABLET 2 Tablet ORAL DAILY Qty = 60 No Refills Instructions: PLEASE HOLD IF LOOSE STOOL Comments: Last Taken: 07/09/17 Time: 0900AM Furosemide (Lasix) 20 MG TABLET 1 Tablet ORAL DAILY Qty = 3 No Refills Instructions: FOLLOW WITH CXR AND PCP REGARDING CONTINUATION Comments: LASIX IV 20MG GIVEN 07/14/17 @0900AM Hydralazine HCl (Hydralazine HCl) 50 MG TABLET 100 Milligram ORAL THREE TIMES DAILY Qty = 60 No Refills Copies To: Malissa White MD Attending Review Statement Documenting Attending: Malissa White MD Other Findings: Discharged in stable condition.
[2017-07-11 09:54] LABS: HEMATOCRIT 24.6 % (37-47); WHITE BLOOD CELL COUNT 9.7 /CUMM (4.8-10.8)
--- NOTE | 2017-07-11 12:15 | RADIOLOGY REPORT ---
EXAMINATION: XR PORTABLE CHEST CLINICAL INFORMATION: Fever and cough COMPARISON: CXR from 07/03/[address] from 07/03/2017. TECHNIQUE: Portable frontal view of the chest was obtained. FINDINGS: Cardiomegaly without interstitial pulmonary edema. The persistent subtle, hazy opacity in the lung bases appears to corresponds to small pleural effusions and compressive atelectasis -- as seen on the recent abdominal CT. No new pulmonary abnormality. IMPRESSION: 1. Cardiomegaly without interstitial pulmonary edema. 2. Persistent hazy opacities in the bases likely reflect presence of small pleural effusions with bibasilar atelectasis (as observed on the abdomen CT of 07/03/2017.
--- NOTE | 2017-07-11 12:42 | PN- Infect Dx ---
Subjective Subjective: T-max 100.9. She offers no complaints Objective Last 24 Hrs of Vital Signs/I&O Vital Signs Date Time Temp Pulse Resp B/P B/P Pulse O2 O2 Flow FiO2 Mean Ox Delivery Rate 07/11 1121 98.8 07/11 0800 96 Room Air 07/11 0646 99.4 07/11 0609 99.6 07/11 0556 100.9 90 22 142/60 95 Room Air 07/11 0554 100.9 07/10 2119 99.1 85 18 128/58 96 Room Air 07/10 2037 85 128/60 07/10 2037 85 128/60 07/10 1421 Nasal 2.0L Cannula 07/10 1407 98.2 75 18 160/90 95 Room Air 07/10 1353 75 160/90 Intake & Output 07/11 1600 07/11 0800 07/11 0000 Intake Total 680 280 Output Total Balance 680 280 Intake, Tube 480 180 Feeding Intake, Tube 200 100 Irrigant Number 1 2 Bowel Movements Physical Exam Other Physical Findings: She appears comfortable in no acute distress Skin no rash Lungs decreased breath sounds at both bases Heart regular rhythm with no murmur Abdomen is obese, soft, nontender with positive bowel sounds Extremities no cyanosis, clubbing or edema Results Last 24 Hours of Lab Results: Laboratory Tests 07/11 07/10 07/10 0620 1545 1450 Hematology CBC w Diff NO MAN DIFF REQ WBC (4.8 - 10.8 /CUMM) 9.7 RBC (4.20 - 5.40 /CUMM) 2.69 L Hgb (12.0 - 16.0 G/DL) 8.3 L Hct (37 - 47 %) 24.6 L MCV (81.0 - 99.0 FL) 91.3 MCH (27.0 - 31.0 PG) 30.7 MCHC (33.0 - 37.0 G/DL) 33.6 RDW (11.5 - 14.5 %) 16.2 H Plt Count (130 - 400 /CUMM) 182 MPV (7.4 - 10.4 FL) 10.5 H Gran % (42.2 - 75.2 %) 66.2 Lymphocytes % (20.5 - 51.1 %) 18.2 L Monocytes % (1.7 - 9.3 %) 12.8 H Eosinophils % (0 - 5 %) 2.4 Basophils % (0.0 - 2.0 %) 0.4 Absolute Granulocytes (1.4 - 6.5 /CUMM) 6.4 Absolute Lymphocytes (1.2 - 3.4 /CUMM) 1.8 Absolute Monocytes (0.10 - 0.60 /CUMM) 1.2 H Absolute Eosinophils (0.0 - 0.7 /CUMM) 0.2 Absolute Basophils (0.0 - 0.2 /CUMM) 0 Other Body Source Fluid WBC Cancelled Fld Total RBCs Counted Cancelled Fluid Glucose Cancelled Fluid Total Protein Cancelled Fluid Albumin Cancelled Fluid LDH Cancelled Fluid Amylase Cancelled Last 24 Hours of Klaus Results: Blood cultures 2 July 09 negative Urine culture July 09 negative Stool C. difficile July 11 pending Recent Imaging Studies: Chest x-ray July 11 persistent hazy opacities in the bases with bibasilar atelectasis and probable small pleural effusions Assessment/Plan ID Impression: Low-grade fevers persist, with her white blood cell count remaining normal, though increased from yesterday, on Amoxicillin, Day 7 of treatment for a Proteus UTI in the setting of initial hypothermic and transient hypotension. Possible sources of her fever include C. difficile, with intermittent loose stools, drug fever, for example secondary to the Amoxicillin, with increased eos noted on her differential yesterday, and atelectasis. Suggestion: 1. Follow-up stool for C. difficile 2. Follow-up recent cultures 3. Discontinue Amoxicillin and follow off antibiotics Juanita Post MD will be covering over the weekend
[2017-07-11 14:00] VITALS: BP 152/55
--- NOTE | 2017-07-11 15:53 | ULTRASOUND REPORT ---
EXAMINATION: US TRIPLEX OF LOWER EXTREMITIES, BILATERAL CLINICAL INFORMATION: Bilateral lower extremity edema and swelling COMPARISON: None TECHNIQUE: Color-flow triplex imaging with spectral analysis and compression Doppler were performed on the lower extremities. FINDINGS: Respiratory variation, normal compression and augmented flow are noted throughout the lower extremities. The visualized common femoral vein, superficial femoral vein, profunda femoral vein, popliteal vein and midcalf peroneal and posterior tibial venous segments show no evidence of deep venous thrombosis. There is a 7.4 x 1.0 x 3.1 cm Lucas's cyst in the left popliteal fossa. The right popliteal fossa appears normal. IMPRESSION: No evidence of deep venous thrombosis involving the lower extremities.
[2017-07-11 21:45] VITALS: BP 160/68
[2017-07-12 06:07] VITALS: BP 172/64
--- NOTE | 2017-07-12 06:17 | ECHOCARDIOGRAM REPORT ---
CHAMP COBIAN Age: 86 : 1930 Gender: F Exam Date: 07/06/2017 09:12 Exam Location: [facility] Ht (in): 62 Wt (lb): 152 BSA: 1.76 BP: 129 / 54 Ordering Physician: Chantell Bocanegra MD Referring Physician: Shahzad Abreu M.D. Technologist: ANDI DUPREE RDCS Room Number: 110 Indications: ARRHYTHMIAS Rhythm: Technical Quality: Fair FINDINGS Left Ventricle Normal global left ventricular size, wall thickness, systolic function with no obvious regional wall motion abnormalities. Left ventricular ejection fraction is estimated at > 55 %. Right Ventricle Normal right ventricular size and function. Right Atrium Normal right atrial size. Left Atrium Normal left atrial size. Mitral Valve Structurally normal mitral valve. Trace to mild mitral regurgitation. Aortic Valve No aortic stenosis. Trileaflet aortic valve. Mild aortic regurgitation. Tricuspid Valve Structurally normal tricuspid valve. Mild tricuspid regurgitation. Unable to estimate the right ventricular systolic pressure. Pulmonic Valve Pulmonic valve not well visualized, grossly normal. Pericardium Minimal pericardial effusion . Great Vessels Normal size aortic root. CONCLUSIONS Normal global left ventricular size, wall thickness, systolic function with no obvious regional wall motion abnormalities. Left ventricular ejection fraction is estimated at > 55 %. Normal right ventricular size and function. Unable to estimate the right ventricular systolic pressure. Minimal pericardial effusion . Shahzad Abreu M.D. (Electronically Signed) Final Date: 07 July 2017 09:37 Amended: 10 July 2017 22:16 MEASUREMENTS (Male / Female) Normal Values 2D ECHO LV Diastolic Diameter PLAX 4.6 cm 4.2 - 5.9 / 3.9 - 5.3 cm LV Systolic Diameter PLAX 2.7 cm 2.1 - 4.0 cm LV Fractional Shortening PLAX 41.3 % 25 - 46 % LV Ejection Fraction 2D Teich 72.2 % IVS Diastolic Thickness 1.2 cm LVPW Diastolic Thickness 0.9 cm LV Relative Wall Thickness 0.5 LVOT Diameter 1.7 cm Aortic Root Diameter 2.6 cm LA Systolic Diameter LX 3.8 cm 3.0 - 4.0 / 2.7 - 3.8 cm LA Volume 74.0 cm 18 - 58 / 22 - 52 cm Ascending Aorta Diameter 2.5 cm DOPPLER AV Peak Velocity 190.0 cm/s AV Peak Gradient 14.4 mmHg AV Mean Velocity 121.0 cm/s AV Mean Gradient 7.0 mmHg AV Velocity Time Integral 45.5 cm AI Deceleration [place] 164.3 cm/s AI Peak Velocity 310.7 cm/s AI Pressure Half Time 560.0 ms AI Peak Gradient 38.6 mmHg LVOT Peak Velocity 77.5 cm/s LVOT Peak Gradient 2.4 mmHg LVOT Mean Velocity 54.9 cm/s LVOT Mean Gradient 1.0 mmHg LVOT Velocity Time Integral 20.8 cm LVOT Stroke Volume 47.2 cm AV Area Cont Eq vti 1.0 cm AV Area Cont Eq pk 0.9 cm MV Peak Velocity 112.0 cm/s MV Peak Gradient 5.0 mmHg MV Mean Velocity 70.9 cm/s MV Mean Gradient 2.0 mmHg Mitral E Point Velocity 108.0 cm/s Mitral A Point Velocity 112.0 cm/s Mitral E to A Ratio 1.0 MV Deceleration Time 268.0 ms TR Peak Velocity 264.0 cm/s TR Peak Gradient 27.9 mmHg Right Atrial Pressure 5.0 mmHg Pulmonary Artery Systolic Pressu 32.9 mmHg Right Ventricular Systolic Press 32.9 mmHg PV Peak Velocity 148.0 cm/s PV Peak Gradient 8.8 mmHg PV Mean Velocity 107.0 cm/s PV Mean Gradient 5.0 mmHg PV Velocity Time Integral 39.3 cm LV E' Lateral Velocity 7.4 cm/s Mitral E to LV E' Lateral Ratio 14.6 LV E' Septal Velocity 8.1 cm/s Mitral E to LV E' Septal Ratio 13.3
--- NOTE | 2017-07-12 07:57 | PN- Att Addend ---
Attending Addendum Attending Brief Note Patient seen and examined. Resting comfortably and not in any acute distress. No issues overnight. She remains afebrile hemodynamically stable. She is alert this morning and denies any shortness of breath, cough or pain. Is tolerating her tube feeding. Vital Signs Date Time Temp Pulse Resp B/P B/P Pulse O2 O2 Flow FiO2 Mean Ox Delivery Rate 07/12 0607 99.1 86 20 172/64 96 07/11 2145 98.1 80 19 160/68 97 Room Air 07/11 2143 80 160/68 07/11 2143 80 160/68 07/11 1656 Room Air 07/11 1600 Room Air 07/11 1400 98.7 75 20 152/55 96 Room Air 07/11 1322 98.7 75 20 152/55 07/11 1121 98.8 07/11 0800 96 Room Air Gen. appearance: Not in acute distress HEENT anicteric, no pallor Heart: S1-S2 regular. Lungs: Clear to auscultation bilaterally Abdomen: Soft and nontender with normal bowel sounds. Extremities: Trace pedal edema Microbiology 07/11 1234 BLOOD: Blood Culture - RECD 07/11 1133 BLOOD: Blood Culture - RECD 07/11 1022 STOOL: Clostridium difficile Toxin A & B - COMP 07/11 1005 URINE ROUT: Urine Culture - COLB 07/11 916 URINE ROUT: Urine Culture - CAN Cancelled: Cancelled via OE: Per MD Decision 07/11 916 LOWER RESP: Respiratory Culture - COLB 07/11 916 LOWER RESP: Gram Stain - COLB Problems: 1. Fever 2. Altered mental status; likely secondary to metabolic encephalopathy; now resolved. 3. Diarrhea 4. Patient presented with hypotension then became hypertensive. 5. Sepsis secondary to urinary tract infection; resolved. 6. Upper GI bleed. 7. Atrial fibrillation on anticoagulation: currently in sinus rhythm Plan: -Her fever appears to have abated. Clostridium difficile testing is negative. Blood cultures are pending. -Chest x-ray suggestive of atelectasis. Begin patient on incentive spirometry. -She is still having loose bowel movements. Problems related to her tube feeding. No abdominal pain on exam. If she does develop abdominal pain or fever we'll consider CT abdomen to rule out colitis. -She has completed a course of antibiotic for UTI. ID follow-up appreciated. Antibiotics have been discontinued. Drug-induced fever has been considered in the differential. -Hemoglobin level is stable. Patient to follow-up with the GI service as an outpatient for consideration of PillCam study. -Continue current antihypertensive regimen. -If she remains afebrile over the weekend she may be discharged to [facility] facility on Friday. -Follow-up a.m. labs.
--- NOTE | 2017-07-12 09:03 | PN- Housestaff ---
Subjective Follow-up For: UTI, altered mental status Subjective: No overnight events. Patient remained afebrile denies shortness of breath, cough, or other complaints. Review of Systems Constitutional: Reports: no symptoms. EENTM: Reports: no symptoms. Cardiovascular: Reports: no symptoms. Respiratory: Reports: no symptoms. Gastrointestinal: Reports: no symptoms. Genitourinary: Reports: no symptoms. Musculoskeletal: Reports: no symptoms. Skin: Reports: no symptoms. Neurological/Psychological: Reports: no symptoms. Hematologic/Endocrine: Reports: no symptoms. Immunologic/Allergic: Reports: no symptoms. Objective Last 24 Hrs of Vital Signs/I&O Vital Signs Date Time Temp Pulse Resp B/P B/P Pulse O2 O2 Flow FiO2 Mean Ox Delivery Rate 07/12 0804 86 172/64 07/12 0607 99.1 86 20 172/64 96 07/11 2145 98.1 80 19 160/68 97 Room Air 07/11 2143 80 160/68 07/11 2143 80 160/68 07/11 1656 Room Air 07/11 1600 Room Air 07/11 1400 98.7 75 20 152/55 96 Room Air 07/11 1322 98.7 75 20 152/55 07/11 1121 98.8 Intake & Output 07/12 1600 07/12 0800 07/12 0000 Intake Total 680 280 Output Total Balance 680 280 Intake, Oral 30 Intake, Tube 480 Feeding Intake, Tube 200 250 Irrigant Physical Exam General Appearance: Alert, Oriented X3, Cooperative, No Acute Distress Cardiovascular: Regular Rate Lungs: Clear to Auscultation Abdomen: Normal Bowel Sounds, Soft Extremities: edema Current Medications: Current Medications Sig/Renee Start time Last Medication Dose Route Stop Time Status Admin Amoxicillin 500 MG TID 07/06 1400 DC 07/11 PO 0857 Apixaban 2.5 MG BID 07/07 2100 AC 07/12 PO 0804 Famotidine 20 MG DAILY 07/05 1100 AC 07/12 PO 0804 Gabapentin 100 MG DAILY 07/09 1320 AC 07/12 PO 0804 Hydralazine HCl 100 MG TID 07/05 2100 AC 07/12 PO 0804 Losartan Potassium 50 MG QPM 07/07 2100 AC 07/11 PO 2143 Melatonin 5 MG AT BEDTIME 07/05 2099 AC 07/11 PO 214 Nystatin 1 RU TID 07/11 0919 AC 07/12 TOP 0805 Polyethylene Glycol 17 GM DAILY 07/08 1200 AC 07/09 PO 0842 Senna/Docusate Sodium 2 TAB DAILY 07/08 1015 AC 07/09 PO 0842 Sertraline HCl 50 MG DAILY 07/05 1753 AC 07/12 PO 0804 Last 24 Hrs of Lab/Klaus Results Last 24 Hrs of Labs/Mics: Microbiology 07/11 1234 BLOOD: Blood Culture - RECD 07/11 1133 BLOOD: Blood Culture - RECD 07/11 1022 STOOL: Clostridium difficile Toxin A & B - COMP 07/11 1005 URINE ROUT: Urine Culture - COLB 07/11 916 URINE ROUT: Urine Culture - CAN Cancelled: Cancelled via OE: Per MD Decision 07/11 916 LOWER RESP: Respiratory Culture - COLB 07/11 916 LOWER RESP: Gram Stain - COLB Assessment/Plan Assessment: Ms Landaverde is a 86-year-old woman with PMHx of significant for right-sided MCA infarct, status post CVA, dementia since 2016, left-sided deficits, bedbound and wheelchair bound, atrial fibrillation on anticoagulation ELIQUS 2.5 twice daily, hypertension, hyperlipidemia, history of varicose veins, remote history of pulmonary embolism, stoped Coumadin 3 years ago, GERD, parsons diverticulosis coli left more than right, status post PEG tube placement in 2015 after CVA,TUBULAR ADENOMA, right renal artery stenosis, back pain, osteoarthritis, osteopenia, depression, anxiety, obesity, remote history of diabetes mellitus not on insulin , recurrent admissions to the hospital for diarrhea, dehydration was brought in by ambulance after she was found altered, unresponsive on 07/03/2017. Patient was initially admitted to ICU, with stabilization was transferred to general medicine floor. #1Altered mental status She was brought in by ambulance to the ED for altered mental status, unresponsiveness, failure to thrive, dehydration, persistent black diarrhea. According to the daughter, she was recently admitted to [facility] for lethargy, altered mental status, hypotension, diarrhea. She was given no antibiotics during her hospital stay. She was discharged from [place] on 07/01 and since then she continued to have diarrhea/dehydration. * Altered Mental status most likely from diarrhea/dehydration versus bradycardia versus hypoglycemia versus hypotension from hypovolemia versus urinary tract infection versus abdominal infection. * She is currently at her baseline. * Continue to monitor #2 Sinus Bradycardia- Her heart rate is ranging from 50-60. She has stable asymptomatic sinus bradycardia. Her home dose of carvedilol was stopped and will not restart it on discharge - follow cardiology #3 Hypotension-resolved and currently we treating her hypertension with her home medication regimen including losartan but her hydralazine was increased to 100 mg 3 times a day. Blood Pressures were high lately -Started on hydralazine 100 mg 3 times a day -we will follow #3 Acute kidney injury- Resolved with IV hydration #4 Sepsis of urological origin- She received a full course of amoxicillin. Further fevers may be drug-induced. Continue to monitor cultures. C. difficile was negative. Urine culture grew Proteus mirabilis and was started on amoxicillin after sensitivity results. - Follow ID consult #6 upper GI bleed/melena- She had push enteroscope yesterday did not reveal any evidence of GI bleed. Patient might have follow-up with Study as outpatient if needed. Her H&H remained stable at this point. GI already signed off until less any overt GI bleed. #7 profuse diarrhea and Stercoral colitis- Resolving and follow-up x-ray abdomen doesn't show any significant colonic Fecal burden. C. difficile negative #8Tube feedings - she is receiving Glucerna at rate of 60 mils per hour with 100 mL of water flushes every 4 hours. She is also on heart healthy diet and able to eat almost 25% of her diet. # 9 atrial fibrillation now in sinus rhythm Eliquis was restarted after ruling out GI bleed Hypertensioncurrently reasonably controlled with losartan and hydralazine. We will continue losartan 50 mg daily and hydralazine 100 mg 3 times a day. If her blood pressure remained elevated we might go up on the started. puree and honey per nutrition consult, patient refused taking po intake DVT prophylaxis pharmacological with Eliquis Patient is full code PEG tube in place, tube feeding ordered Problem List: 1. Urinary tract infection Pain Ratin Pain Location: no Pain Goal: Remain pain free Pain Plan: see a/p Tomorrow's Labs & Rationales: cbc, bep
[2017-07-12 10:42] LABS: ABSOLUTE BASOPHIL COUNT 0 /CUMM (0.0-0.2); ABSOLUTE EOSINOPHIL COUNT 0.2 /CUMM (0.0-0.7); ABSOLUTE GRANULOCYTE CT 5.9 /CUMM (1.4-6.5); ABSOLUTE LYMPH COUNT 1.7 /CUMM (1.2-3.4); ABSOLUTE MONOCYTE COUNT 0.9 /CUMM (0.10-0.60); BASOPHIL % 0.2 % (0.0-2.0); EOSINOPHIL % 2.2 % (0-5); GRANULOCYTE % 68.1 % (42.2-75.2); HEMATOCRIT 23.7 % (37-47); MEAN CORPUSCULAR HGB 30.4 PG (27.0-31.0); MEAN CORPUSCULAR HGB CONC 33.2 G/DL (33.0-37.0); MEAN CORPUSCULAR VOLUME 91.6 FL (81.0-99.0); PLATELET COUNT 201 /CUMM (130-400); RBC DISTRIBUTION WIDTH 15.9 % (11.5-14.5); RED BLOOD CELL CT 2.59 /CUMM (4.20-5.40); WHITE BLOOD CELL COUNT 8.7 /CUMM (4.8-10.8)
--- NOTE | 2017-07-12 13:36 | PN- Infect Dx ---
Subjective Subjective: No fever; denies shortness of breath, cough, or other complaints. Review of Systems Comments: 12 points reviewed a noted, otherwise neg. Objective Last 24 Hrs of Vital Signs/I&O Vital Signs Date Time Temp Pulse Resp B/P B/P Pulse O2 O2 Flow FiO2 Mean Ox Delivery Rate 07/12 0804 86 172/64 07/12 0800 96 Room Air 07/12 0607 99.1 86 20 172/64 96 07/11 2145 98.1 80 19 160/68 97 Room Air 07/11 2143 80 160/68 07/11 2143 80 160/68 07/11 1656 Room Air 07/11 1600 Room Air 07/11 1400 98.7 75 20 152/55 96 Room Air Intake & Output 07/12 1600 07/12 0800 07/12 0000 Intake Total 680 280 Output Total Balance 680 280 Intake, Oral 30 Intake, Tube 480 Feeding Intake, Tube 200 250 Irrigant Physical Exam Other Physical Findings: She appears comfortable in no acute distress Skin no rash Lungs decreased breath sounds at both bases Heart regular rhythm with no murmur Abdomen is obese, soft, nontender with positive bowel sounds Extremities no cyanosis, clubbing or edema Results Last 24 Hours of Lab Results: Laboratory Tests 07/12 0815 Chemistry Sodium (137 - 145 mmol/L) 137 Potassium (3.5 - 5.1 mmol/L) 4.6 Chloride (98 - 107 mmol/L) 106 Carbon Dioxide (22 - 30 mmol/L) 23 Anion Gap (5 - 16) 8 BUN (7 - 17 mg/dL) 19 H Creatinine (0.5 - 1.0 mg/dL) 0.7 Estimated GFR (>60 ml/min) > 60 BUN/Creatinine Ratio (7 - 25 %) 27.1 H Hematology CBC w Diff NO MAN DIFF REQ WBC (4.8 - 10.8 /CUMM) 8.7 RBC (4.20 - 5.40 /CUMM) 2.59 L Hgb (12.0 - 16.0 G/DL) 7.9 L Hct (37 - 47 %) 23.7 L MCV (81.0 - 99.0 FL) 91.6 MCH (27.0 - 31.0 PG) 30.4 MCHC (33.0 - 37.0 G/DL) 33.2 RDW (11.5 - 14.5 %) 15.9 H Plt Count (130 - 400 /CUMM) 201 MPV (7.4 - 10.4 FL) 10.0 Gran % (42.2 - 75.2 %) 68.1 Lymphocytes % (20.5 - 51.1 %) 19.4 L Monocytes % (1.7 - 9.3 %) 10.1 H Eosinophils % (0 - 5 %) 2.2 Basophils % (0.0 - 2.0 %) 0.2 Absolute Granulocytes (1.4 - 6.5 /CUMM) 5.9 Absolute Lymphocytes (1.2 - 3.4 /CUMM) 1.7 Absolute Monocytes (0.10 - 0.60 /CUMM) 0.9 H Absolute Eosinophils (0.0 - 0.7 /CUMM) 0.2 Absolute Basophils (0.0 - 0.2 /CUMM) 0 Last 24 Hours of Klaus Results: SPEC #: [id number] MAYLIN: 07/11/17 STATUS: RES RECD: 07/11/[address]: Rafat Bowie MD SOURCE: BLOOD ENTR: 07/11/[address]: Malissa White MD SPDESC: 2ND/VENOUS Estella Tsai MD Patient Has No Primary Care Dr ORDERED: BLOOD CULTURE Procedure Result > BLOOD CULTURE REPORT Preliminary 07/12/17 No growth after 1 day incubation. Specimen is examined continuously for 5 days before final report unless culture becomes positive. SPEC #: [id number] MAYLIN: 07/11/17 STATUS: COMP RECD: 07/11/[address]: Rafat Bowie MD SOURCE: STOOL ENTR: 07/11/[address]: Malissa White MDC: Estella Tsai MD Patient Has No Primary Care Dr ORDERED: C.DIFFICILE EIA COMMENT: Has pt had antimicrobial/antineoplastic rx in past 4-6wks? Y Has pt had abd pain, fever, or constipation? Y Procedure Result > C. DIFFICILE TOXIN A & B EIA Final 07/11/17 NEGATIVE FOR CLOSTRIDIUM DIFFICILE TOXINS A & B BY EIA Recent Imaging Studies: CXR IMPRESSION: 1. Cardiomegaly without interstitial pulmonary edema. 2. Persistent hazy opacities in the bases likely reflect presence of small pleural effusions with bibasilar atelectasis (as observed on the abdomen CT of 07/03/2017. DICTATED BY: Bladimir Hernandez MD DATE/TIME DICTATED:07/11/171202 JOURNAL ENTRY AUDIT CLERK:ZOHREH DATE/TIME TRANSCRIBED:07/11/171202 Assessment/Plan ID Impression: 86-year-old woman with PMHx of significant for right-sided MCA infarct, status post CVA, dementia since 2016, left-sided deficits, bedbound and wheelchair bound, atrial fibrillation on anticoagulation ELIQUS 2.5 twice daily, hypertension, hyperlipidemia, history of varicose veins, remote history of pulmonary embolism, stoped Coumadin 3 years ago, GERD, parsons diverticulosis coli left more than right, status post PEG tube placement in 2016 after CVA,TUBULAR ADENOMA, right renal artery stenosis, back pain, osteoarthritis, osteopenia, depression, anxiety, obesity, remote history of diabetes mellitus not on insulin , recurrent admissions to the hospital for diarrhea, dehydration was brought in by ambulance after she was found altered, unresponsive on 07/03/2017. Low grade fever (resolved) Proteus UTI (treated w/ amoxicillin for 7 d) Of note C. difficile stool assay by EIA neg; WBC wnl. Suggestion: 1. Repeat BC/UC off abx if recurrent fever. 2. Follow off antibiotics. 3. If diarrhea stool for C. difficile (by PCR).
[2017-07-12 14:57] VITALS: BP 180/70
[2017-07-12 17:36] VITALS: BP 148/78
[2017-07-12 21:34] VITALS: BP 142/60
--- NOTE | 2017-07-12 21:55 | CT SCAN REPORT ---
EXAMINATION: CT ABDOMEN AND PELVIS WITHOUT CONTRAST CLINICAL INFORMATION: Abdominal pain. COMPARISON: CT scan abdomen and pelvis 07/03/2017. CT scan abdomen and pelvis 11/03/2010. TECHNIQUE: Multidetector volumetric imaging was performed from the superior aspect of the liver through the pubic symphysis. Sagittal and coronal reformatted images were obtained on the technologist's workstation. DLP: 1020.43 mGy-cm FINDINGS: LUNG BASES: There are layering moderate volume bilateral pleural effusions with compressive atelectasis at both lung bases. There is a small pericardial effusion. LIVER, GALLBLADDER, AND BILIARY TREE: The liver is normal in size, shape, and attenuation. No focal hepatic lesion or biliary ductal dilatation is present. The gallbladder is unremarkable with no evidence of radiopaque gallstones, gallbladder wall thickening, or obvious pericholecystic inflammatory changes. PANCREAS: Unremarkable SPLEEN: Unremarkable ADRENAL GLANDS: Unremarkable KIDNEYS AND URETERS: There is a pedunculated 2 cm lesion at the midpole of the left kidney with density measurement of 38 Hounsfield units. This was present on CT scan 11/03/2010. This previously measured 1.7 cm. BLADDER: Unremarkable GASTROINTESTINAL TRACT: Percutaneous gastrotomy tube in the stomach. There is no acute change of the bowel. There is no bowel obstruction. No bowel wall thickening or edema. Scattered stool in the colon. The appendix is not identified. MESENTERY: There is a small volume of abdominal ascites. Most of the fluid is in the upper abdomen and the liver and the spleen. No inflammation of the mesentery. No mesenteric mass. ABDOMINAL WALL: No significant hernia is appreciated. There is generalized anasarca. LYMPH NODES: Normal VASCULAR: There are atherosclerotic vascular wall calcifications throughout the abdomen and pelvis. There is no aneurysm. PELVIC VISCERA: The uterus is anteverted. There are multiple and noncalcified calcified fibroids. There is no adnexal abnormality. OSSEOUS STRUCTURES: Multilevel degenerative spondylosis spine with disc height narrowing and endplate spurring of the vertebrae. IMPRESSION: 1. Bilateral pleural effusions with bibasilar compressive atelectasis. Small pericardial effusion. 2. Small volume of abdominal ascites. 3. Generalized anasarca. 4. Fibroid uterus. 5. Percutaneous gastrotomy tube. No acute change of the bowel. 6. Diffuse atherosclerotic vascular wall calcifications throughout the abdomen and pelvis. No aneurysm of the aorta.
[2017-07-13 06:08] VITALS: BP 172/67
[2017-07-13 08:49] LABS: ABSOLUTE BASOPHIL COUNT 0 /CUMM (0.0-0.2); ABSOLUTE EOSINOPHIL COUNT 0.1 /CUMM (0.0-0.7); ABSOLUTE LYMPH COUNT 1.4 /CUMM (1.2-3.4); ABSOLUTE MONOCYTE COUNT 0.7 /CUMM (0.10-0.60); BASOPHIL % 0.3 % (0.0-2.0); EOSINOPHIL % 1.8 % (0-5); GRANULOCYTE % 72.4 % (42.2-75.2); MEAN CORPUSCULAR HGB 30.9 PG (27.0-31.0); MEAN CORPUSCULAR HGB CONC 33.6 G/DL (33.0-37.0); PLATELET COUNT 202 /CUMM (130-400); RBC DISTRIBUTION WIDTH 15.7 % (11.5-14.5); RED BLOOD CELL CT 2.61 /CUMM (4.20-5.40); WHITE BLOOD CELL COUNT 8.3 /CUMM (4.8-10.8)
--- NOTE | 2017-07-13 09:22 | PN- Housestaff ---
Opal Carbajal MD,[facility] 07/13/17 0921: Subjective Follow-up For: - Altered mental status -Hypotension - resolved -Bradycardia - resolved -Hypoglycemia -Sepsis for urological origin - treated off AB -Diarrhea/ stercoral colitis/fecal impaction Subjective: Patient visited today, was lying in bed comfortably in no acute distress, was arousable, not oriented, doest not follow command. No fever or chills, no shortness of breathing, no chest pain, no other events. Currently off antibiotics, BP high, added IV lasix 20mg, ordered CXR. Review of Systems Constitutional: Reports: see HPI. Objective Last 24 Hrs of Vital Signs/I&O Vital Signs Date Time Temp Pulse Resp B/P B/P Pulse O2 O2 Flow FiO2 Mean Ox Delivery Rate 07/13 0831 87 172/67 07/13 0608 99.2 87 20 172/67 93 07/12 2134 99.2 91 18 142/60 95 Room Air 07/12 2117 90 142/60 07/12 2116 90 142/60 07/12 1736 99.0 148/78 07/12 1600 94 Room Air 07/12 1457 98.6 84 20 180/70 94 Room Air 07/12 1427 84 180/70 Intake & Output 07/13 1600 07/13 0800 07/13 0000 Intake Total 680 340 Output Total Balance 680 340 Intake, IV 0 0 Intake, Oral 0 0 Intake, Tube 480 240 Feeding Intake, Tube 200 100 Irrigant Physical Exam General Appearance: No Acute Distress Skin Temp/Moisture Exam: Warm/Dry Sepsis Skin Exam (color): Normal for Ethnicity HEENT: Atraumatic Cardiovascular: Normal S1, Normal S2 Lungs: Normal Air Movement Abdomen: Soft, No Tenderness Current Medications: Current Medications Sig/Renee Start time Last Medication Dose Route Stop Time Status Admin Acetaminophen 650 MG Q6-PRN PRN 07/12 1500 AC 07/12 PO 1520 Apixaban 2.5 MG BID 07/07 2100 07/13 PO 0831 Famotidine 20 MG DAILY 07/05 1100 AC 07/13 PO 0831 Furosemide 20 MG DAILY 07/13 1330 UNVr IV Gabapentin 100 MG DAILY 07/09 1320 AC 07/13 PO 0831 Hydralazine HCl 100 MG TID 07/05 2100 07/13 PO 0831 Losartan Potassium 50 MG QPM 07/07 2100 AC 07/12 PO 2116 Melatonin 5 MG AT BEDTIME 07/05 2100 AC 07/12 PO 2116 Nystatin 1 RU TID 07/11 0919 AC 07/13 TOP 0832 Polyethylene Glycol 17 GM DAILY 07/08 1200 AC 07/09 PO 0842 Senna/Docusate Sodium 2 TAB DAILY 07/08 1015 AC 07/09 PO 0842 Sertraline HCl 50 MG DAILY 07/05 1753 AC 07/13 PO 0831 Last 24 Hrs of Lab/Klaus Results Last 24 Hrs of Labs/Mics: Laboratory Tests 07/13/17 0740: Anion Gap 7, Estimated GFR > 60, BUN/Creatinine Ratio 33.3 H, Mby-Y-Waaspibvzid Pept Pending, CBC w Diff NO MAN DIFF REQ, RBC 2.61 L, MCV 92.0, MCH 30.9, MCHC 33.6, RDW 15.7 H, MPV 10.0, Gran % 72.4, Lymphocytes % 17.5 L, Monocytes % 8.0 , Eosinophils % 1.8, Basophils % 0.3, Absolute Granulocytes 6.0, Absolute Lymphocytes 1.4, Absolute Monocytes 0.7 H, Absolute Eosinophils 0.1, Absolute Basophils 0 Assessment/Plan Assessment: Ms Landaverde is a 86-year-old woman with PMHx of significant for right-sided MCA infarct, status post CVA, dementia since 2015, left-sided deficits, bedbound and wheelchair bound, atrial fibrillation on anticoagulation ELIQUS 2.5 twice daily, hypertension, hyperlipidemia, history of varicose veins, remote history of pulmonary embolism, stoped Coumadin 3 years ago, GERD, parsons diverticulosis coli left more than right, status post PEG tube placement in 2015 after CVA,TUBULAR ADENOMA, right renal artery stenosis, back pain, osteoarthritis, osteopenia, depression, anxiety, obesity, remote history of diabetes mellitus not on insulin , recurrent admissions to the hospital for diarrhea, dehydration was brought in by ambulance after she was found altered, unresponsive on 07/03/2017. Pertinent labs in the last 24 hrs: WBC 7.2 (07/03/17)-->5.3 (07/06/17) Hemoglobin 7.3(07/03/17)-->10.1(07/06/17) platelets 120(07/03/17)-->133(07/06/17) Sodium 145, Potassium 3.8 (07/03/17)-->3.8(07/06/17) Sr Ceatinine 1.0(07/03/17)-->0.8(07/06/17) ABG 7.30, pCO2 32, pO2 107 UA revealed moderate leukocyte esterase, protein 100, packed bacteria. UC (07/03/17) revealed growth of Proteus. Sensitive to Ampi, Cefazolin, Augmentin,Cipro, Gent. UC (07/05/17) revealed growth of GNR. CT head showed evidence of her old right MCA infarct,urinalysis showed moderate leukocyte esterase, protein 100, packed bacteria. CT abdomen and pelvis showed a large volume of stool with stercoral colitis chest x-ray showed cardiomegaly. Patient was initially admitted to ICU, with stabilization was transferred to general medicine floor. #1Altered mental status She was brought in by ambulance to the ED for altered mental status, unresponsiveness, failure to thrive, dehydration, persistent black diarrhea. According to the daughter, she was recently admitted to [facility] for lethargy, altered mental status, hypotension, diarrhea. She was given no antibiotics during her hospital stay. She was discharged from [facility] on 07/01 and since then she continued to have diarrhea/dehydration. * Altered Mental status most likely from diarrhea/dehydration versus bradycardia versus hypoglycemia versus hypotension from hypovolemia versus urinary tract infection versus abdominal infection. * She is currently at her baseline. * Continue to monitor #2 Sinus Bradycardia- Her heart rate is ranging from 50-60. She has stable asymptomatic sinus bradycardia. Her home dose of carvedilol was stopped and will not restart it on discharge - follow cardiology #3 Hypotension/hypertansion-resolved and currently we treating her hypertension with her home medication regimen including losartan but her hydralazine was increased to 100 mg 3 times a day. Blood Pressures were high lately -Started on hydralazine 100 mg 3 times a day -we will follow #3 Acute kidney injury- Resolved with IV hydration #4 Sepsis of urological origin- on amoxicillin day 6 Urine culture grew Proteus mirabilis and was started on amoxicillin after sensitivity results. - Follow ID consult - off antibiotics for now #6 upper GI bleed/melena- She had push enteroscope yesterday did not reveal any evidence of GI bleed. Patient might have follow-up with Study as outpatient if needed. Her H&H remained stable at this point. GI already signed off until less any overt GI bleed. #7 profuse diarrhea and Stercoral colitis- Resolving and follow-up x-ray abdomen doesn't show any significant colonic Fecal burden. #8Tube feedings - she is receiving Glucerna at rate of 60 mils per hour with 100 mL of water flushes every 4 hours. She is also on heart healthy diet and able to eat almost 25% of her diet. # 9 atrial fibrillation now in sinus rhythm Eliquis was restarted after ruling out GI bleed Hypertensioncurrently reasonably controlled with losartan and hydralazine. We will continue losartan 50 mg daily and hydralazine 100 mg 3 times a day. If her blood pressure remained elevated we might go up on the started. - started IV lasix 20mg considering hazy opacities, and increased blood pressure #10 Low grade fever Patient had low grade fever last night - parsons culture, negative so far - Bilateral LE doppler, negative - CXR, hazy opacities - C diff, negative - follow off antibiotics - repeat CXR today Puree and honey per nutrition consult, patient refused taking po intake DVT prophylaxis pharmacological with Eliquis Patient is full code PEG tube in place, tube feeding ordered Problem List: 1. Altered mental status Pain Ratin Pain Location: None Pain Goal: Pain 4 or less Pain Plan: Continue current plan Tomorrow's Labs & Rationales: CBC BEP Christopher ARORA,Malissa 07/13/17 1159: Attending MD Review Statement Attending Statement Attending MD Statement: examined this patient, discuss w/resident/PA/HUMAN CAPITAL MANAGER, agreed w/resident/PA/HUMAN CAPITAL MANAGER, reviewed EMR data (avail), discussed with nursing, discussed with case mgmt, amended to note Attending Assessment/Plan: Patient seen and examined. Resting comfortably. Hemodynamically stable. Afebrile. She complained of abdominal pain overnight and the CT abdomen was done. No evidence of an acute intra-abdominal pathology was noted. Nursing staff reports few loose stools overnight. Incidentally noted on the CT scan small pericardial effusion. Echocardiogram done earlier this morning showed minimal pericardial effusion. Also noted incidentally on the CT abdomen and pelvis was moderate size layering bilateral pleural effusion. Patient is currently asymptomatic from a pulmonary standpoint denies shortness of breath cough or chest pain. On examination she has diminished breath sounds bilaterally with no added sounds. Fever has abated. Antibiotic therapy remains on hold. Recommendations: -Obtain chest x-ray further evaluate pleural effusions. -Recommend starting patient on Lasix 20 mg IV daily. Monitor blood pressure and renal function closely. -Continue to hold off antibiotic therapy for now. -Continue current antihypertensive regimen.
[2017-07-13 13:30] VITALS: BP 160/76
--- NOTE | 2017-07-13 16:17 | PN- Infect Dx ---
Subjective Subjective: No fever/chgills. Comfortable. Review of Systems Comments: 12 points reviewed as noted, otherwise negative. Objective Last 24 Hrs of Vital Signs/I&O Vital Signs Date Time Temp Pulse Resp B/P B/P Pulse O2 O2 Flow FiO2 Mean Ox Delivery Rate 07/13 1359 85 160/76 07/13 1330 98.6 85 18 160/76 95 Room Air 07/13 0831 87 172/67 07/13 0608 99.2 87 20 172/67 93 07/12 2134 99.2 91 18 142/60 95 Room Air 07/12 2117 90 142/60 07/12 2116 90 142/60 07/12 1736 99.0 148/78 Intake & Output 07/13 1600 07/13 0800 07/13 0000 Intake Total 852 680 340 Output Total Balance 852 680 340 Intake, IV 22 0 0 Intake, Oral 0 0 0 Intake, Tube 480 480 240 Feeding Intake, Tube 350 200 100 Irrigant Number 1 Bowel Movements Physical Exam Other Physical Findings: She appears comfortable in no acute distress Skin no rash Lungs decreased breath sounds at both bases Heart regular rhythm with no murmur Abdomen is obese, soft, nontender with positive bowel sounds Extremities no cyanosis, clubbing or mao Results Last 24 Hours of Lab Results: Laboratory Tests 07/13 0740 Chemistry Sodium (137 - 145 mmol/L) 137 Potassium (3.5 - 5.1 mmol/L) 4.6 Chloride (98 - 107 mmol/L) 104 Carbon Dioxide (22 - 30 mmol/L) 26 Anion Gap (5 - 16) 7 BUN (7 - 17 mg/dL) 20 H Creatinine (0.5 - 1.0 mg/dL) 0.6 Estimated GFR (>60 ml/min) > 60 BUN/Creatinine Ratio (7 - 25 %) 33.3 H [id number] Pept (<125 pg/mL) 3070 H Hematology CBC w Diff NO MAN DIFF REQ WBC (4.8 - 10.8 /CUMM) 8.3 RBC (4.20 - 5.40 /CUMM) 2.61 L Hgb (12.0 - 16.0 G/DL) 8.1 L Hct (37 - 47 %) 24.0 L MCV (81.0 - 99.0 FL) 92.0 MCH (27.0 - 31.0 PG) 30.9 MCHC (33.0 - 37.0 G/DL) 33.6 RDW (11.5 - 14.5 %) 15.7 H Plt Count (130 - 400 /CUMM) 202 MPV (7.4 - 10.4 FL) 10.0 Gran % (42.2 - 75.2 %) 72.4 Lymphocytes % (20.5 - 51.1 %) 17.5 L Monocytes % (1.7 - 9.3 %) 8.0 Eosinophils % (0 - 5 %) 1.8 Basophils % (0.0 - 2.0 %) 0.3 Absolute Granulocytes (1.4 - 6.5 /CUMM) 6.0 Absolute Lymphocytes (1.2 - 3.4 /CUMM) 1.4 Absolute Monocytes (0.10 - 0.60 /CUMM) 0.7 H Absolute Eosinophils (0.0 - 0.7 /CUMM) 0.1 Absolute Basophils (0.0 - 0.2 /CUMM) 0 Last 24 Hours of Klaus Results: SPEC #: [id number] MAYLIN: 07/11/17 STATUS: RES RECD: 07/11/[address]: Opal Carbajal MD, Rafat Olmstead SOURCE: BLOOD ENTR: 07/11/17 [facility] DR: Christopher ARORA,Malissa SPDESC: 2ND/VENOUS Eulalio ARORA,Estella Patient Has No Primary Care Dr ORDERED: BLOOD CULTURE Procedure Result > BLOOD CULTURE REPORT Preliminary 07/12/17 No growth after 1 day incubation. Specimen is examined continuously for 5 days before final report unless culture becomes positive. Recent Imaging Studies: Reviewed Assessment/Plan ID Impression: Impression: 86-year-old woman with PMHx of significant for right-sided MCA infarct, status post CVA, dementia since 2016, left-sided deficits, bedbound and wheelchair bound, atrial fibrillation on anticoagulation ELIQUS 2.5 twice daily, hypertension, hyperlipidemia, history of varicose veins, remote history of pulmonary embolism, stoped Coumadin 3 years ago, GERD, parsons diverticulosis coli left more than right, status post PEG tube placement in 2016 after CVA,TUBULAR ADENOMA, right renal artery stenosis, back pain, osteoarthritis, osteopenia, depression, anxiety, obesity, remote history of diabetes mellitus not on insulin , recurrent admissions to the hospital for diarrhea, dehydration was brought in by ambulance after she was found altered, unresponsive on 07/03/2017. Low grade fever (resolved) Proteus UTI (treated) Of note C. difficile stool assay by EIA neg; WBC remains wnl. Suggestion: 1. Will f/u prn. 2. Followed off antibiotics. 3. Please call if febrile again.
--- NOTE | 2017-07-13 20:26 | RADIOLOGY REPORT ---
EXAMINATION: XR PORTABLE CHEST CLINICAL INFORMATION: Fever and cough. COMPARISON: Chest x-ray 07/11/2017. TECHNIQUE: Portable frontal view of the chest was obtained. FINDINGS: There is dense left retrocardiac opacity with blunting of the left costophrenic angle. Pulmonary vasculature is mildly prominent. Cardiac silhouette is normal. There are atherosclerotic changes of the thoracic aorta. No acute osseous finding. IMPRESSION: Prominence of the pulmonary vasculature suggesting mild volume overload. Left retrocardiac opacity with a small left pleural effusion. This opacity may represent sequela of atelectasis or pneumonia.
[2017-07-13 22:03] VITALS: BP 142/58
[2017-07-14 06:12] VITALS: BP 132/48
--- NOTE | 2017-07-14 07:10 | PN- Housestaff ---
Opal Carbajal MD,[facility] 07/14/17 0710: Subjective Follow-up For: - Altered mental status -Hypotension - resolved -Bradycardia - resolved -Hypoglycemia -Sepsis for urological origin - treated off AB -Diarrhea/ stercoral colitis/fecal impaction Subjective: Patient visited today, was lying in bed comfortably in no acute distress, was arousable, not oriented, doest not follow command. No fever or chills, no shortness of breathing, no chest pain, no other events. Plan to discharge patient, on increased dose of hydralazine and continue Lasix for 3 days, 3. Chest x-ray after that. Patient was stable to be discharged. Review of Systems Constitutional: Reports: see HPI. Objective Last 24 Hrs of Vital Signs/I&O Vital Signs Date Time Temp Pulse Resp B/P B/P Pulse O2 O2 Flow FiO2 Mean Ox Delivery Rate 07/14 1055 99.2 80 20 160/78 07/14 1013 80 160/78 07/14 0853 184/60 07/14 0800 93 Room Air 07/14 0612 99.2 74 20 132/48 93 07/13 2203 99.3 80 16 142/58 96 Room Air 07/13 2109 80 142/58 07/13 2108 80 142/58 07/13 1600 95 Room Air Intake & Output 07/14 1600 07/14 0800 07/14 0000 Intake Total 1020 155 Output Total 0 Balance 1020 155 Intake, IV 0 10 Intake, Oral 0 120 Intake, Tube 720 Feeding Intake, Tube 300 25 Irrigant Number 2 1 3 Bowel Movements Output, 0 Gastric Drainage Physical Exam General Appearance: No Acute Distress, drowsy Skin: No Significant Lesion Skin Temp/Moisture Exam: Warm/Dry Sepsis Skin Exam (color): Normal for Ethnicity HEENT: Atraumatic, EOMI Cardiovascular: Normal S1, Normal S2 Lungs: Normal Air Movement Abdomen: Soft, No Tenderness, PEG tube in place Current Medications: Current Medications Sig/Renee Start time Last Medication Dose Route Stop Time Status Admin Acetaminophen 650 MG Q6-PRN PRN 07/12 1500 DCD 07/12 PO 1520 Apixaban 2.5 MG BID 07/07 2100 DCD 07/14 PO 0854 Famotidine 20 MG DAILY 07/05 1100 DCD 07/14 PO 0854 Furosemide 20 MG ONCE ONE 07/14 0845 CAN IV 07/14 0846 Furosemide 20 MG DAILY 07/13 1330 DCD 07/14 IV 0845 Gabapentin 100 MG DAILY 07/09 1320 DCD 07/14 PO 0854 Hydralazine HCl 100 MG TID 07/05 2100 DCD 07/14 PO 0853 Losartan Potassium 50 MG QPM 07/07 2100 DCD 07/13 PO 2108 Melatonin 5 MG AT BEDTIME 07/05 2099 DCD 07/13 PO 2108 Nystatin 1 RU TID 07/11 0919 DCD 07/14 TOP 0854 Polyethylene Glycol 17 GM DAILY 07/08 1200 DCD 07/09 PO 0842 Senna/Docusate Sodium 2 TAB DAILY 07/08 1015 DCD 07/09 PO 0842 Sertraline HCl 50 MG DAILY 07/05 1753 DCD 07/14 PO 0854 Assessment/Plan Assessment: Ms Landaverde is a 86-year-old woman with PMHx of significant for right-sided MCA infarct, status post CVA, dementia since 2015, left-sided deficits, bedbound and wheelchair bound, atrial fibrillation on anticoagulation ELIQUS 2.5 twice daily, hypertension, hyperlipidemia, history of varicose veins, remote history of pulmonary embolism, stoped Coumadin 3 years ago, GERD, parsons diverticulosis coli left more than right, status post PEG tube placement in 2015 after CVA,TUBULAR ADENOMA, right renal artery stenosis, back pain, osteoarthritis, osteopenia, depression, anxiety, obesity, remote history of diabetes mellitus not on insulin , recurrent admissions to the hospital for diarrhea, dehydration was brought in by ambulance after she was found altered, unresponsive on 07/03/2017. Pertinent labs in the last 24 hrs: WBC 7.2 (07/03/17)-->5.3 (07/06/17) Hemoglobin 7.3(07/03/17)-->10.1(07/06/17) platelets 120(07/03/17)-->133(07/06/17) Sodium 145, Potassium 3.8 (07/03/17)-->3.8(07/06/17) Sr Ceatinine 1.0(07/03/17)-->0.8(07/06/17) ABG 7.30, pCO2 32, pO2 107 UA revealed moderate leukocyte esterase, protein 100, packed bacteria. UC (07/03/17) revealed growth of Proteus. Sensitive to Ampi, Cefazolin, Augmentin,Cipro, Gent. UC (07/05/17) revealed growth of GNR. CT head showed evidence of her old right MCA infarct,urinalysis showed moderate leukocyte esterase, protein 100, packed bacteria. CT abdomen and pelvis showed a large volume of stool with stercoral colitis chest x-ray showed cardiomegaly. Patient was initially admitted to ICU, with stabilization was transferred to general medicine floor. #1Altered mental status She was brought in by ambulance to the ED for altered mental status, unresponsiveness, failure to thrive, dehydration, persistent black diarrhea. According to the daughter, she was recently admitted to [facility] for lethargy, altered mental status, hypotension, diarrhea. She was given no antibiotics during her hospital stay. She was discharged from [place] on 07/01 and since then she continued to have diarrhea/dehydration. * Altered Mental status most likely from diarrhea/dehydration versus bradycardia versus hypoglycemia versus hypotension from hypovolemia versus urinary tract infection versus abdominal infection. * She is currently at her baseline. * stable to be discharged #2 Sinus Bradycardia- Her heart rate is ranging from 50-60. She has stable asymptomatic sinus bradycardia. Her home dose of carvedilol was stopped and will not restart it on discharge - follow cardiology #3 Hypotension/hypertansion-resolved and currently we treating her hypertension with her home medication regimen including losartan but her hydralazine was increased to 100 mg 3 times a day. Blood Pressures were high lately -Started on hydralazine 100 mg 3 times a day - held carvedilol - to follow in outpatient with baker #3 Acute kidney injury- Resolved with IV hydration #4 Sepsis of urological origin- on amoxicillin day 6 Urine culture grew Proteus mirabilis and was started on amoxicillin after sensitivity results. - Follow ID consult - off antibiotics for now #6 upper GI bleed/melena- She had push enteroscope yesterday did not reveal any evidence of GI bleed. Patient might have follow-up with Study as outpatient if needed. Her H&H remained stable at this point. GI already signed off until less any overt GI bleed. #7 profuse diarrhea and Stercoral colitis- Resolving and follow-up x-ray abdomen doesn't show any significant colonic Fecal burden. - DC on bowel regimen #8Tube feedings - she is receiving Glucerna at rate of 60 mils per hour with 100 mL of water flushes every 4 hours. She is also on heart healthy diet and able to eat almost 25% of her diet. # 9 atrial fibrillation now in sinus rhythm Eliquis was restarted after ruling out GI bleed Hypertensioncurrently reasonably controlled with losartan and hydralazine. We will continue losartan 50 mg daily and hydralazine 100 mg 3 times a day. If her blood pressure remained elevated we might go up on the started. - started IV lasix 20mg considering hazy opacities, and increased blood pressure - DC on lasix PO for 3 days #10 Low grade fever Patient had low grade fever, work up was negative, continue to monitor Puree and honey per nutrition consult, patient refused taking po intake DVT prophylaxis pharmacological with Eliquis Patient is full code PEG tube in place, tube feeding ordered Problem List: 1. Altered mental status 2. Hypotension 3. Afib 4. Hypertension Pain Ratin Pain Location: none Pain Goal: Pain 4 or less Pain Plan: karley capone plan Tomorrow's Labs & Rationales: None
[2017-07-14] MEDS ORDERED: SENNA PLUS TAB1 EACH PO ×2 (09:36→11:15)
[2017-07-14] MEDS ORDERED: LASIX20 M1 PO ×2 (09:36→11:15)
[2017-07-14] MEDS ORDERED: MIRALAX119 GM PO ×2 (09:36→11:15)
--- NOTE | 2017-07-14 09:38 | Patient Discharge Instructions ---
Discharge Instructions General Discharge Information You were seen/treated for: altered mental status Low bloo pressure, low heart rate UTI Watch for these problems: Change in blood pressure, puls rate, shortness of breathing, loose stools or constipation. Special Instructions: Please note some of your medications are changed, you need to follow with your PCP and copy operator regarding follow up. Please take your lasix for 3 days, follow with CXR on 07/17/17, then follow with your PCP regarding the findings. Hold laxatives if you have loose stools. Diet Continue normal diet: No Recommended Diet: Regular (puree and honey), Consider patient has very low po intake, mainly on tube feeding Activity Full Activity/No Limits: No Acute Coronary Syndrome Inclusion Criteria At DC or during hospital stay patient has or had the following: ACS DIAGNOSIS No Discharge Core Measures Meds if any: Prescribed or Continued at Discharge Meds if any: NOT Prescribed or Continued at Discharge Congestive Heart Failure Inclusion Criteria At DC or during hospital stay patient has or had the following: CHF DIAGNOSIS No Discharge Core Measures Meds if any: Prescribed or Continued at Discharge Meds if any: NOT Prescribed or Continued at Discharge Cerebrovascular accident Inclusion Criteria At DC or during hospital stay patient has or had the following: CVA/TIA Diagnosis No Discharge Core Measures Meds if any: Prescribed or Continued at Discharge Meds if any: NOT Prescribed or Continued at Discharge Venous thromboembolism Inclusion Criteria VTE Diagnosis No VTE Type NONE VTE Confirmed by (Test) NONE Discharge Core Measures - Per Current guidelines, there needs to be overlap - treatment for the first 5 days of Warfarin therapy. - If discharged on Warfarin prior to 5 days of - overlap therapy, the patient will need to be - assessed for post discharge needs including - *Post discharge parental anticoagulation - *Warfarin and/or parental anticoagulation education - *Follow up date to check INR post discharge At least 5 days overlap therapy as Inpatient No Meds if any: Prescribed or Continued at Discharge Note: Overlap Therapy is Warfarin and Anticoagulant Meds if any: NOT Prescribed or Continued at Discharge
[2017-07-14 10:13] VITALS: BP 160/78
[2017-07-14 10:55] VITALS: BP 160/78
[2017-07-14] MEDS ORDERED: HYDRALAZINE HCL50 M1 PO (11:15)
--- NOTE | 2017-07-14 11:54 | PN- Infect Dx ---
Subjective Subjective: Afebrile without complaints Objective Last 24 Hrs of Vital Signs/I&O Vital Signs Date Time Temp Pulse Resp B/P B/P Pulse O2 O2 Flow FiO2 Mean Ox Delivery Rate 07/14 1055 99.2 80 20 160/78 07/14 1013 80 160/78 07/14 0853 184/60 07/14 0800 93 Room Air 07/14 0612 99.2 74 20 132/48 93 07/13 2203 99.3 80 16 142/58 96 Room Air 07/13 2109 80 142/58 07/13 2108 80 142/58 07/13 1600 95 Room Air 07/13 1359 85 160/76 07/13 1330 98.6 85 18 160/76 95 Room Air Intake & Output 07/14 1600 07/14 0800 07/14 0000 Intake Total 1020 155 Output Total 0 Balance 1020 155 Intake, IV 0 10 Intake, Oral 0 120 Intake, Tube 720 Feeding Intake, Tube 300 25 Irrigant Number 1 3 Bowel Movements Output, 0 Gastric Drainage Physical Exam Other Physical Findings: She appears comfortable in no acute distress Lungs are clear Heart regular rhythm with no murmur Abdomen is soft, nontender with positive bowel sounds Extremities no cyanosis, clubbing or edema Results Last 24 Hours of Lab Results: Laboratory Tests 07/13 0740 Chemistry Sodium (137 - 145 mmol/L) 137 Potassium (3.5 - 5.1 mmol/L) 4.6 Chloride (98 - 107 mmol/L) 104 Carbon Dioxide (22 - 30 mmol/L) 26 Anion Gap (5 - 16) 7 BUN (7 - 17 mg/dL) 20 H Creatinine (0.5 - 1.0 mg/dL) 0.6 Estimated GFR (>60 ml/min) > 60 BUN/Creatinine Ratio (7 - 25 %) 33.3 H Uth-G-Djjwlzvulql Pept (<125 pg/mL) 3070 H Hematology CBC w Diff NO MAN DIFF REQ WBC (4.8 - 10.8 /CUMM) 8.3 RBC (4.20 - 5.40 /CUMM) 2.61 L Hgb (12.0 - 16.0 G/DL) 8.1 L Hct (37 - 47 %) 24.0 L MCV (81.0 - 99.0 FL) 92.0 MCH (27.0 - 31.0 PG) 30.9 MCHC (33.0 - 37.0 G/DL) 33.6 RDW (11.5 - 14.5 %) 15.7 H Plt Count (130 - 400 /CUMM) 202 MPV (7.4 - 10.4 FL) 10.0 Gran % (42.2 - 75.2 %) 72.4 Lymphocytes % (20.5 - 51.1 %) 17.5 L Monocytes % (1.7 - 9.3 %) 8.0 Eosinophils % (0 - 5 %) 1.8 Basophils % (0.0 - 2.0 %) 0.3 Absolute Granulocytes (1.4 - 6.5 /CUMM) 6.0 Absolute Lymphocytes (1.2 - 3.4 /CUMM) 1.4 Absolute Monocytes (0.10 - 0.60 /CUMM) 0.7 H Absolute Eosinophils (0.0 - 0.7 /CUMM) 0.1 Absolute Basophils (0.0 - 0.2 /CUMM) 0 Last 24 Hours of Klaus Results: Blood cultures July 11 negative Stool C. difficile July 11 negative Blood cultures x July 09 negative Recent Imaging Studies: Chest x-ray July 13 left retrocardiac opacity with a small left pleural effusion; prominence of the pulmonary vasculature CT of the abdomen and pelvis July 12 revealed bilateral pleural effusions with bibasilar compressive atelectasis; small volume of abdominal ascites with generalized anasarca Dopplers of both lower extremities July 11 revealed a Lucas's cyst in the left popliteal fossa with no evidence of DVT Assessment/Plan ID Impression: Stable, with no further fevers and with her white blood cell count remaining normal, now off antibiotics after 1 week of treatment for a Proteus UTI in the setting of initial hypothermic and transient hypotension. Suggestion: 1. Continue to follow off antibiotics
== END 2017-07-14 13:49 | DRG 872 ==
LOC: ERH 12:51 → 2NB 15:58 → ERHI 15:58 → CRI 15:58 → EDBEDREQ 18:01 → ERHI 18:04 → ENRESERV 18:14 → ENTRNSPT 19:31 → EDTRNSPTSTS 19:35 → CMPTRNSPT 19:53 → CRI 20:12 → ENTRNSPT 07-04 13:53 → EDTRNSPT 07-04 13:58 → EDTRNSPTTYP 07-04 13:58 → CMPTRNSPT 07-05 07:13 → ENTRNSPT 07-09 18:51 → EDTRNSPT 07-09 19:15 → EDTRNSPTSTS 07-09 19:15 → 2NB 07-09 19:34 → CMPTRNSPT 07-09 19:43 → 2NB 07-10 09:28 → ENPENDDIS 07-14 11:32 → 2NB 07-14 13:49
PROVIDERS: Hospitalist; Internal Medicine; Internal Medicine Endocrinology, Diabetes & Metabolism; Physician Assistant; Radiology Vascular & Interventional Radiology; Student in an Organized Health Care Education/Training Program
PROC: 30233N1 Transfusion of Nonautologous Red Blood Cells into Peripheral Vein, Percutaneous Approach (ICD-10-PCS; principal; 2017-07-03)
PROC: 0DJD8ZZ Inspection of Lower Intestinal Tract, Via Natural or Artificial Opening Endoscopic (ICD-10-PCS; 2017-07-07)
DX: A41.9 Sepsis, unspecified organism (principal); N17.9 Acute kidney failure, unspecified; E87.2 Acidosis; E11.649 Type 2 diabetes mellitus with hypoglycemia without coma; D69.6 Thrombocytopenia, unspecified; D62 Acute posthemorrhagic anemia; I48.0 Paroxysmal atrial fibrillation; I69.354 Hemiplegia and hemiparesis following cerebral infarction affecting left non-dominant side; E86.1 Hypovolemia; K92.2 Gastrointestinal hemorrhage, unspecified; N39.0 Urinary tract infection, site not specified; E55.9 Vitamin D deficiency, unspecified; E78.5 Hyperlipidemia, unspecified; E87.6 Hypokalemia; F03.90 Unspecified dementia, unspecified severity, without behavioral disturbance, psychotic disturbance, mood disturbance, and anxiety; K52.89 Other specified noninfective gastroenteritis and colitis; Z79.01 Long term (current) use of anticoagulants; R00.1 Bradycardia, unspecified; B96.4 Proteus (mirabilis) (morganii) as the cause of diseases classified elsewhere; I10 Essential (primary) hypertension; H26.9 Unspecified cataract; E66.9 Obesity, unspecified; Z68.27 Body mass index [BMI] 27.0-27.9, adult; F32.9 Major depressive disorder, single episode, unspecified; K21.9 Gastro-esophageal reflux disease without esophagitis; M19.90 Unspecified osteoarthritis, unspecified site; R19.7 Diarrhea, unspecified; Z86.718 Personal history of other venous thrombosis and embolism; M54.9 Dorsalgia, unspecified
CPT/HCPCS: 2NBP; 86618; 87075; CCU; 36415; 36592; 71045; 74018; 74176; 80307; 81001; 81003; 82436; 86920; 87040; 87045; 87070; 87086; 87147; 93005; 93010; 93306; 93970; 96374; 99291; J0360; J0696; J1940; J2310; J3370; J7040; J7042; J7060; P9016

== ENCOUNTER 2017-08-19 13:36 | Inpatient (IN) | payer OTHER, MEDICARE ==
[~2017-08-19] VITALS: Ht 154.9 cm; Wt 47.3 kg
[~2017-08-19 13:36] MED LIST changes: +ACETAMINOPHEN325 M2 PO; +FERROUS SU300 MG/51 PO; +LASIX20 M1 PO
--- NOTE | 2017-08-19 14:03 | ED GENERAL ADULT ---
History of Present Illness General Chief Complaint: General Adult Stated Complaint: BIBA LOW BS Source: patient Exam Limitations: clinical condition, dementia Vital Signs & Intake/Output Vital Signs & Intake/Output Vital Signs Date Time Temp Pulse Resp B/P B/P Pulse O2 O2 Flow FiO2 Mean Ox Delivery Rate 08/19 1925 50 18 120/60 96 Room Air 08/19 1754 48 18 151/66 96 Room Air 08/19 1525 97.7 49 20 110/53 97 Room Air 08/19 1447 95 Room Air 08/19 1342 96.1 48 18 133/80 97 Room Air Allergies Coded Allergies: NO KNOWN ALLERGIES (05/29/15) Reconcile Medications Acetaminophen 325 MG TABLET 2 TAB PO TID PAIN (Reported) Apixaban (Eliquis) 2.5 MG TABLET 1 TAB PO BID BLOOD THINNR (Reported) Atorvastatin Calcium 80 MG TABLET 1 TAB PO 1700 HLD (Reported) Ergocalciferol (Vitamin D2) (Vitamin D2) 50,000 UNIT CAPSULE 1 CAP PO QFRI SUPPLEMENT (Reported) Ferrous Sulfate (IRON) 325 MG (65 MG IRON) TABLET 1 TAB PO DAILY SUPPLEMENT ( Reported) Furosemide (Lasix) 20 MG TABLET 1 TAB PO DAILY cardiac health FOLLOW WITH CXR AND PCP REGARDING CONTINUATION Gabapentin 100 MG CAPSULE 1 CAP PO DAILY NEUROPATHY (Reported) Hydralazine HCl 50 MG TABLET 100 MG PO TID HIGH BLOOD PRESSURE Lactobacillus Acidophilus (Probiotic) 10 BILLION CELL CAPSULE 1 CAP PO DAILY PROBIOTIC (Reported) Losartan Potassium 50 MG TABLET 1 TAB PO QPM HEART/BP (Reported) Multivitamin (Multivitamins) 1 EACH CAPSULE 1 TAB PO DAILY SUPPLEMENT ( Reported) Pantoprazole Sodium 40 MG TABLET.DR 1 TAB PO DAILY GI (Reported) Polyethylene Glycol 3350 (Miralax) 17 GRAM/DOSE POWDER 17 GM PO DAILY CONSTIPATION pLEASE HOLD IF LOOSE STOOL Sennosides/Docusate Sodium (Senna Plus Tablet) 8.6 MG-50 MG TABLET 2 TAB PO DAILY CONSTIPATION PLEASE HOLD IF LOOSE STOOL Sertraline HCl 25 MG TABLET 2 TAB PO DAILY MENTAL HEALTH (Reported) Vitamin B Complex (Super B-50 Complex) 1 EACH CAPSULE 1 CAP PO DAILY SUPPLEMENT (Reported) Triage Note: RECEIVED 86 YO FEMALE RISHI FROM HOME WITH REPORT OF LOW BLOOD SUGAR AT HOME INITIALLY REPORTED BY VNS. VNS STATED PT APPEARED WITH ALTERED MENTAL STATUS, CHECKED B.S., WHICH WAS 38 AND GAVE SUGAR THROUGH J-TUBE. 911 CALLED, REPEAT B.S. BY [employer] WAS 66. IV ESTABLISHED BY [employer] WHO GAVE 200 ML D10. BLOOD SUGAR UPON ARRIVAL TO THE ED 149. 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 PT OPENS EYES UPON VERBAL STIMULI, ANSWERS SIMPLE QUESTIONS ONLY, A+O X 1. Triage Nurses Notes Reviewed? yes Onset: Abrupt Duration: unknown duration Timing: recent history Injury Environment: home No Modifying Factors: none HPI: 86-year-old female comes into the emergency room for further evaluation of low blood sugar. Patient had a visiting nurse come in and her sugar was reportedly 38. She was given some nutrition to her PEG tube and then 911 was called. Upon arrival of EMS the blood sugar was around 60 and establish an IV and gave her D5 half-normal saline. Patient has baseline dementia and previous CVA. History is very limited. Patient offers no complaints at this time. The daughter reports that they had given her multiple things at home and her sugar repeatedly kept dropping and that she is more lethargic and sleepy than usual. She's also had a little bit of cough and according to her some labored breathing. (Jeff Ott) Past History Travel History Traveled to [place] past 21 day No Medical History Any Pertinent Medical History? see below for history Neurological: CVA, dementia EENT: cataracts, epistaxis Cardiovascular: AFIB, hypertension, hyperlipidemia, varicose veins Respiratory: pulmonary embolism (remote), pulmonary edema Gastrointestinal: constipation, ACID REFLUX Post PEG pandiverticulosis coli, L> R Hx colon adenoma Hepatic: NONE Renal: RIGHT RENAL ARTERY STENOSIS Musculoskeletal: chronic back pain, disk herniation, osteoarthritis, osteopenia Psychiatric: depression (post CVA) Endocrine: diabetes, obesity, vitamin D deficiency Blood Disorders: anemia Cancer(s): NONE RN CLINICAL/Reproductive: fibroid History of MRSA: No History of VRE: No History of CDIFF: No Influenza Vaccine: 12/15/16 Surgical History Surgical History: BACK SURGERY Psychosocial History Who do you live with Spouse 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 MOTHER (MVA). , Age 30-40; Cause: MVA (motor vehicle accident). FATHER, , Age 30-40; Cause: MVA (motor vehicle accident). Hx Contributory? No (Jeff Ott) Review of Systems Review of Systems Constitutional: Reports: no symptoms. EENTM: Reports: no symptoms. Respiratory: Reports: no symptoms. Cardiovascular: Reports: no symptoms. GI: Reports: no symptoms. Genitourinary: Reports: no symptoms. Musculoskeletal: Reports: no symptoms. Skin: Reports: no symptoms. Neurological/Psychological: Reports: no symptoms. Hematologic/Endocrine: Reports: see HPI. Immunologic/Allergic: Reports: no symptoms. All Other Systems: Reviewed and Negative (Jeff Ott) Physical Exam Physical Exam General Appearance: lethargic Head: atraumatic Eyes: Bilateral: normal appearance. Ears, Nose, Throat: hearing decreased Neck: normal inspection Respiratory: no respiratory distress Gastrointestinal: soft Back: decreased range of motion Extremities: NO EDEMA Neurologic/Psych: disoriented x 3 Skin: intact Core Measures ACS in differential dx? No CVA/TIA Diagnosis: No Sepsis Present: No Sepsis Focused Exam Completed? No (Jeff Ott) Progress Differential Diagnoses I considered the following diagnoses in my evaluation of the patient: Electrolyte imbalance, hypoglycemia, pneumonia, UTI, anemia, Plan of Care: Orders Procedure Date/time Status Heart Healthy Diet 08/20 B Active LACTIC ACID 08/19 2224 Active Misc Message 08/19 1938 Active ED Holding Orders 08/19 1938 Active Admit to inpatient 08/19 193 Active Vital Signs 08/19 1938 Active Code Status 08/19 1938 Active LACTIC ACID 08/19 192 Active Patient Data 08/19 1808 Active Add-on Test (ER Only) 08/19 1758 Active THYROID STIMULATING HORMONE 08/19 1405 Complete URINALYSIS 08/19 1347 Complete TROPONIN LEVEL 08/19 1347 Complete COMPREHENSIVE METABOLIC PANEL 08/19 1347 Complete CBC WITHOUT DIFFERENTIAL 08/19 1347 Complete EKG 08/19 1347 Active Current Medications Sig/Renee Start time Last Medication Dose Stop Time Status Admin Atropine Sulfate 0.5 MG ONCE ONE 08/19 1914 UNVr (Atropine) 08/19 191 Dextrose/Sodium 1,000 ML Q13H 08/19 1800 UNVr 08/19 Chloride 1915 (D5W-1/2 Normal Saline 1000ML) Laboratory Tests 08/19/17 1500: Urine Color YEL, Urine Clarity CLEAR, Urine pH 6.0, Ur Specific [place] 1.025, Urine Protein NEG, Urine Ketones NEG, Urine Nitrite NEG, Urine Bilirubin NEG, Urine Urobilinogen 0.2, Ur Leukocyte Esterase NEG, Ur Microscopic EXAM NOT REQUIRED, Urine Hemoglobin NEG, Urine Glucose NEG 08/19/17 1405: Anion Gap 9, Estimated GFR 52 L, BUN/Creatinine Ratio 39.0 H, Glucose 83, Calcium 9.2, Total Bilirubin 0.6, AST 27, ALT 26, Alkaline Phosphatase 107, Troponin I < 0.01, Total Protein 5.6 L, Albumin 2.9 L, Globulin 2.7, Albumin/ Globulin Ratio 1.1, TSH 0.489, CBC w Diff NO MAN DIFF REQ, RBC 2.98 L, MCV 94.0 , MCH 31.0, MCHC 33.0, RDW 14.1, MPV 11.2 H, Gran % 78.3 H, Lymphocytes % 13.1 L, Monocytes % 6.9, Eosinophils % 1.5, Basophils % 0.2, Absolute Granulocytes 6.6 H, Absolute Lymphocytes 1.1 L, Absolute Monocytes 0.6, Absolute Eosinophils 0.1, Absolute Basophils 0 Diagnostic Imaging: Viewed by Me: Radiology Read. Discussed w/RAD: Radiology Read. Radiology Impression: PATIENT: CHAMP COBIAN PRESENT AGE: 86 PATIENT ACCOUNT NO: [id number] : 29 LOCATION: [facility] ORDERING PHYSICIAN: Jeff HUGHES SERVICE DATE: 08/19/17 EXAM TYPE: RAD - XRY-PORTABLE CHEST XRAY EXAMINATION: XR PORTABLE CHEST CLINICAL INFORMATION: Shortness of breath. COMPARISON: 07/13/2017. TECHNIQUE: Portable frontal view of the chest was obtained. 4:38 PM FINDINGS: Lungs are clear. No pulmonary vascular congestion. There is no pleural effusion. The heart size is prominent but unchanged since prior chest x-ray.. The cardiac and mediastinal contours are normal. There are calcifications of the thoracic aorta. There are multilevel degenerative changes of dorsal spine. IMPRESSION: Unremarkable examination. DICTATED BY: Ventura Arrieta MD DATE/TIME DICTATED:08/19/171701 TOBACCO PRIZER :ZOHREH DATE/TIME TRANSCRIBED:08/19/171701 CONFIDENTIAL, DO NOT COPY WITHOUT APPROPRIATE AUTHORIZATION. <Electronically signed in Other Vendor System> SIGNED BY: Ventura Arrieta MD 08/19/17 6833 Initial ED EKG: normal sinus rhythm, rate (47) (Jeff Ott) Departure Departure Disposition: STILL A PATIENT Condition: Stable Clinical Impression Primary Impression: Hypoglycemia Secondary Impressions: Bradycardia Referrals: Patient Has No Primary Care Dr (PCP/Family) Departure Forms: Customer Survey General Discharge Information Admission Note Spoke With: Blanka Horton MD Documentation of Exam: Documentation of any treatments & extenuating circumstances including Concerns Regarding Discharge (functional status, medication knowledge or non-compliance, living conditions, etc.) that warrant an admission rather than observation: Repeat sugar checks. Endocrine consultation. Repeat labs. Cardiac telemetry. Cardiac consultation. Patient keeps dropping her glucose levels despite not being on insulin and also eating regularly. (Jeff Ott) PA/VENEER DRIER Co-Sign Statement Statement: ED Attending supervision documentation- [X] I saw and evaluated the patient. I have also reviewed all the pertinent lab results and diagnostic results. I agree with the findings and the plan of care as documented in the PA's/VENEER DRIER's documentation. Patient presents for evaluation of a low blood sugar. Physical examination reveals a nonfocal neurologic examination warm and dry skin. [] I have reviewed the ED Record and agree with the PA's/VENEER DRIER's documentation. [] Additions or exceptions (if any) to the PAs/VENEER DRIER's note and plan are summarized below: [] (Valerie ARORA,Jovany David) Critical Care Note Critical Care Note Critical Care Time: non-applicable (Jeff Ott)
[2017-08-19 14:12] LABS: ABSOLUTE BASOPHIL COUNT 0 /CUMM (0.0-0.2); ABSOLUTE EOSINOPHIL COUNT 0.1 /CUMM (0.0-0.7); ABSOLUTE GRANULOCYTE CT 6.6 /CUMM (1.4-6.5); ABSOLUTE LYMPH COUNT 1.1 /CUMM (1.2-3.4); ABSOLUTE MONOCYTE COUNT 0.6 /CUMM (0.10-0.60); BASOPHIL % 0.2 % (0.0-2.0); EOSINOPHIL % 1.5 % (0-5); GRANULOCYTE % 78.3 % (42.2-75.2); MEAN PLATELET VOLUME 11.2 FL (7.4-10.4); PLATELET COUNT 135 /CUMM (130-400); RBC DISTRIBUTION WIDTH 14.1 % (11.5-14.5); RED BLOOD CELL CT 2.98 /CUMM (4.20-5.40); WHITE BLOOD CELL COUNT 8.4 /CUMM (4.8-10.8)
--- NOTE | 2017-08-19 17:08 | RADIOLOGY REPORT ---
EXAMINATION: XR PORTABLE CHEST CLINICAL INFORMATION: Shortness of breath. COMPARISON: 07/13/2017. TECHNIQUE: Portable frontal view of the chest was obtained. 4:38 PM FINDINGS: Lungs are clear. No pulmonary vascular congestion. There is no pleural effusion. The heart size is prominent but unchanged since prior chest x-ray.. The cardiac and mediastinal contours are normal. There are calcifications of the thoracic aorta. There are multilevel degenerative changes of dorsal spine. IMPRESSION: Unremarkable examination.
--- NOTE | 2017-08-19 18:18 | History & Physical ---
Nigel Osborne 08/19/171816: General Information and HPI Exam Limitations: unable to give history, not alert/orientated, clinical condition, dementia, physical impairment History of Present Illness: Ms. Landaverde is an 86-year-old female with a PMH of atrial fibrillation on eliquis, hypertension, hyperlipidemia, history of varicose veins, and remote history of pulmonary embolism. She also has a past medical history significant for right-sided MCA infarct (2016), with residual left sided deficit, dementia, who is bedbound/wheelchair bound and s/p PEG tube placement. Also, she has a PMH of GERD, diverticulosis, right renal artery stenosis, osteoarthritis, osteopenia, depression, anxiety, and obesity. She presents to the hospital from home after being found hypoglycemic, 38. She was given sugar via J tube, and IV D10W by EMS. On arrival, her glucose is 149, but has continued to drop and she is now on D51/2W. Additionally, she was found to be bradycardic in the 40s. Her last admission 2 months ago, she was admitted for AMS 2/2 hypovolemic shock due to diarrhea. She was also found to be bradycardic at that time, and was evaluated by Cardiology, and no evidence of advanced heart block or prolonged pauses were noted. ECHO revealed showed normal biventricular function. Her beta-rajiv was discontinued, and she remains off of it over the last 2 months. Her daughter was at the bedside states that her decreased mentation and lethargy has started yesterday. She does not think the patient has had any fevers, chills, or coughing. She is adamant about no beta rajiv or insulin use. Of note the patient does eat by her mouth in spite of her PEG tube, and pured diet. She only receives free water flushes, 16 ounces daily via the PEG tube. Her daughter notes that the patient has had multiple episodes of unexplained hypoglycemia before. Vitals in the emergency department temperature 96.1, pulse rate 48, respiratory rate 18, blood pressure 133/80 saturating 97% on room air. Overall blood work is unremarkable, no white count, H&H 9.3/28. Electrolytes overall within normal limits, chloride 113, B1/creatinine 39/1.0. TSH within normal limits. Troponin less than 0.01. Urinalysis unremarkable. Chest x-ray unremarkable. Recent echo unremarkable - recent EKG showed sinus bradycardia. EKG this admission shows sinus bradycardia with 1st degree AVB ~ 220ms. Allergies/Medications Allergies: Coded Allergies: NO KNOWN ALLERGIES (05/29/15) Home Med list Acetaminophen 325 MG TABLET 2 TAB PO TID PAIN (Reported) Apixaban (Eliquis) 2.5 MG TABLET 1 TAB PO BID BLOOD THINNR (Reported) Atorvastatin Calcium 80 MG TABLET 1 TAB PO 1700 HLD (Reported) Ergocalciferol (Vitamin D2) (Vitamin D2) 50,000 UNIT CAPSULE 1 CAP PO QFRI SUPPLEMENT (Reported) Ferrous Sulfate (IRON) 325 MG (65 MG IRON) TABLET 1 TAB PO DAILY SUPPLEMENT ( Reported) Furosemide (Lasix) 20 MG TABLET 1 TAB PO DAILY cardiac health FOLLOW WITH CXR AND PCP REGARDING CONTINUATION Gabapentin 100 MG CAPSULE 1 CAP PO DAILY NEUROPATHY (Reported) Hydralazine HCl 50 MG TABLET 100 MG PO DAILY HIGH BLOOD PRESSURE Lactobacillus Acidophilus (Probiotic) 10 BILLION CELL CAPSULE 1 CAP PO DAILY PROBIOTIC (Reported) Losartan Potassium 50 MG TABLET 1 TAB PO QPM HEART/BP (Reported) Multivitamin (Multivitamins) 1 EACH CAPSULE 1 TAB PO DAILY SUPPLEMENT ( Reported) Pantoprazole Sodium 40 MG TABLET.DR 1 TAB PO DAILY GI (Reported) Polyethylene Glycol 3350 (Miralax) 17 GRAM/DOSE POWDER 17 GM PO DAILY CONSTIPATION pLEASE HOLD IF LOOSE STOOL Sennosides/Docusate Sodium (Senna Plus Tablet) 8.6 MG-50 MG TABLET 2 TAB PO DAILY CONSTIPATION PLEASE HOLD IF LOOSE STOOL Sertraline HCl 25 MG TABLET 2 TAB PO DAILY MENTAL HEALTH (Reported) Vitamin B Complex (Super B-50 Complex) 1 EACH CAPSULE 1 CAP PO DAILY SUPPLEMENT (Reported) Compliance With Home Meds: GOOD Past History Travel History Traveled to [place] past 21 day No Medical History Neurological: CVA, dementia EENT: cataracts, epistaxis Cardiovascular: AFIB, hypertension, hyperlipidemia, varicose veins Respiratory: pulmonary embolism (remote), pulmonary edema Gastrointestinal: constipation, ACID REFLUX Post PEG pandiverticulosis coli, L> R Hx colon adenoma Hepatic: NONE Renal: RIGHT RENAL ARTERY STENOSIS Musculoskeletal: chronic back pain, disk herniation, osteoarthritis, osteopenia Psychiatric: depression (post CVA) Endocrine: diabetes, obesity, vitamin D deficiency Blood Disorders: anemia Cancer(s): NONE [employer]ATOR/Reproductive: fibroid History of MRSA: No History of VRE: No History of CDIFF: No Influenza Vaccine: 12/15/16 Surgical History Surgical History: BACK SURGERY Past Family/Social History Family History Relations & Conditions if any BROTHER (unknown). MOTHER (MVA). , Age 30-40; Cause: MVA (motor vehicle accident). FATHER, , Age 30-40; Cause: MVA (motor vehicle accident). Psychosocial History Who Do You Live With? spouse ( & dtr, Nhi Landaverde), child Services at Home: Home Health Aide, Nursing Primary Language: Maltese, Occitan Living Will? no Power of Technology Administrator/HCP? no Functional Ability ADLs Needs Assist: dressing, eating, toileting, bathing. Ambulation: non-ambulatory IADLs Needs Assist: shopping, housework, finances, food prep, telephone, transportation, medication admin. Review of Systems Review of Systems Constitutional: Reports: see HPI. Exam & Diagnostic Data Last 24 Hrs of Vital Signs/I&O Vital Signs Date Time Temp Pulse Resp B/P B/P Pulse O2 O2 Flow FiO2 Mean Ox Delivery Rate 08/19 1925 50 18 120/60 96 Room Air 06/05 1754 48 18 151/66 96 Room Air /05 1525 97.7 49 20 110/53 97 Room Air /05 1447 95 Room Air 06/ 1342 96.1 48 18 133/80 97 Room Air Intake & Output 06/ 1600 06/05 0800 06/05 0000 Intake Total Output Total 300 Balance -300 Output, Urine 300 Patient 64.41 kg Weight Weight Estimated Measurement Method Physical Exam General Appearance lethargic, but responds to tactile and verbal stimuli Skin stage 1 coccygeal ulcer 2x2cm Skin Temp/Moisture Exam: Warm/Dry HEENT Atraumatic, PERRLA, Mucous Membr. moist/pink Cardiovascular Normal S1, Normal S2, bradycardic Lungs bibasilar rales Abdomen Normal Bowel Sounds, Soft, No Tenderness, PEG tube in place w/o underlying errythema Neurological hemiplegia on the left side with left facial froop. pt is lethargic and cannot follow commads to perform a thorough neuro exam Extremities No Edema, No Tenderness/Swelling Sepsis Peripheral Pulse Location: Dorsalis Pedis Sepsis Peripheral Pulse Exam: Normal Last 24 Hrs of Labs/Klaus: Laboratory Tests 08/20/17 0052: Lactic Acid 1.0 06/05/18 2225: Lactic Acid Cancelled 08/19/17 2146: Lactic Acid 1.0, Troponin I < 0.01 08/19/172009: C-Peptide Cancelled 08/19/171924: Lactic Acid Cancelled 08/19/17 1500: Urine Color YEL, Urine Clarity CLEAR, Urine pH 6.0, Ur Specific [place] 1.025, Urine Protein NEG, Urine Ketones NEG, Urine Nitrite NEG, Urine Bilirubin NEG, Urine Urobilinogen 0.2, Ur Leukocyte Esterase NEG, Ur Microscopic EXAM NOT REQUIRED, Urine Hemoglobin NEG, Urine Glucose NEG 08/19/17 1405: C-Peptide Pending 08/19/17 1405: Anion Gap 9, Estimated GFR 52 L, BUN/Creatinine Ratio 39.0 H, Glucose 83, Insulin Level 181.1 H, Calcium 9.2, Total Bilirubin 0.6, AST 27, ALT 26, Alkaline Phosphatase 107, Troponin I < 0.01, Total Protein 5.6 L, Albumin 2.9 L, Globulin 2.7, Albumin/Globulin Ratio 1.1, TSH 0.489, CBC w Diff NO MAN DIFF REQ, RBC 2.98 L, MCV 94.0, MCH 31.0, MCHC 33.0, RDW 14.1, MPV 11.2 H, Gran % 78.3 H, Lymphocytes % 13.1 L, Monocytes % 6.9, Eosinophils % 1.5, Basophils % 0.2, Absolute Granulocytes 6.6 H, Absolute Lymphocytes 1.1 L, Absolute Monocytes 0.6, Absolute Eosinophils 0.1, Absolute Basophils 0 Microbiology 08/20 2219 BLOOD: Blood Culture - RECD 08/19 2199 BLOOD: Blood Culture - RECD 08/19 2124 BLOOD: Blood Culture - CAN Cancelled: Quantity not sufficient for Aerobic blood culture bottle. 08/19 1500 URINE ROUT: Urine Culture - RECD Diagnostic Data EKG Results sinus cindy with 1st degree AVB 220ms Assessment/Plan Assessment: Ms. Landaverde is an 86-year-old female with a PMH of atrial fibrillation on eliquis, hypertension, hyperlipidemia, history of varicose veins, and remote history of pulmonary embolism. She also has a past medical history significant for right-sided MCA infarct (2016), with residual left sided deficit, dementia, who is bedbound/wheelchair bound and s/p PEG tube placement. She presents to the hospital from home after being found hypoglycemic, 38. She was also found to be bradycardic in the ER. Problem List/Assessment and Plan Persistent hypoglycemia with AMS * Admit to for IV dextrose and tele monitoring for bradycardia * Repeated episodes of hypoglycemia, refractory to IV dextrose. * ?insulinoma vs exogenous use, although pts family strictly says otherwise. * Her previous work up did suggest exogenous insulin use (05/08/2017, glucose level 94, insulin level 93.9 ---> On 05/09/2017, glucose 108, insulin 19.8 and cortisol 14.5 ---> c-peptide level is still pending ---> On 05/10/2017, her glucose level 138 and insulin level 6.2. * ?sepsis * We will obtain lactic acid to evaluate for underlying sepsis as well as blood cultures. * Meds reviewed - no obvious causes * Endo consult in the am and consider CT abd/pelvis for insulinoma Bradycardia * Beta-rajiv had been held on her last admission * ?exogenous use as well VS sepsis VS vagal hypersitivity * We will monitor on tele * Recent echo unremarkable - recent EKG showed sinus bradycardia. EKG this admission shows sinus bradycardia with 1st degree AVB ~ 220ms. * Consider cardio consult in the am * Atropine at the bedside Chronic medical problems * Continue eliquis for atrial fibrillation * hold all anti-hypertensives for AMS and borderline hypotension * hold gabapentin for sedation FC NPO Pain path as ordered eliquis for DVT As Ranked By This Provider Problem List: 1. Altered mental status 2. Afib 3. Hypertension 4. Hypoglycemia 5. Symptomatic anemia Core Measures/Misc (12/01) Acute Coronary Syndrome ACS Diagnosis: No Congestive Heart Failure Congestive Heart Failure Diagnosis No Cerebrovascular Accident CVA/TIA Diagnosis: No VTE (View Protocol) VTE Risk Factors Acute Medical Illness No Mechanical VTE Prophylaxis d/t N/A MechProphylax Ordered No VTE Pharm Prophylaxis d/t NA PharmProphylax ordered Sepsis (View protocol) Sepsis Present: No If YES complete Sepsis Event Note If YES complete Sepsis Event Note Jasper ARORA, [facility] 08/19/17 5174: Core Measures/Misc (12/01) Sepsis (View protocol) If YES complete Sepsis Event Note If YES complete Sepsis Event Note Attending MD Review Statement Attending Statement Attending MD Statement: examined this patient, discuss w/resident/PA/POTTERY KILN BUILDER, agreed w/resident/PA/POTTERY KILN BUILDER, discussed with family, reviewed images, amended to note Attending Assessment/Plan: 86 yo F with h/o paroxysmal Aflutter on Eliquis, HTN, ENEDINA, 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 s/p G-tube now able to tolerate PO, dementia, recurrent hypoglycemia, diabetes now off insulin, is brought in after being found confused with sugar level of 38. Patient's daughter Nih provides history. Patient has a live in aide and two other aides who care for her, a visiting nurse who comes in once a week. For the past 2 days, aide has noticed that patient is lethargic and today patient would not wake up, was cold and clammy, short of breath. Her BP was 90/52 and sugar was 38. The aide gave sugar via the G-tube. When EMS arrived, sugar was 66, patient was given D10 and brought to ER. Sugars checked in ER 149. She was also noted to be bradycardic to 40's in the ER. At baseline, patient is alert and oriented, able to communicate well. She is mostly bedbound or wheelchair bound. She is on a pureed and thin liquid diet, and daughter tries to balance carbohydrate intake. Sugars are roughly around 90- 150's at home. Patient has been eating well, drinks about 50 ounces of water including free water given through G-tube. Patient has been having loose pasty stools but no watery diarrhea. Patient has been admitted for similar hypoglycemia and bradycardia in the past wherein her diabetic meds and beta rajiv was discontinued respectively. Daughter states that patient is not on any diabetic meds, and all of her OHA or insulin is locked. Its less likely that patient may ahve accidentally received any insulin. Also, this morning patient's sugar was 130 and dropped drastically to 38 by afternoon. Patient had only eaten breakfast of scrambled eggs. Vitals stable except for bradycardia with HR in 40-50's. Exam: lethargic but arousable with verbal stimuli, responds in a few words, speech is slurred as she does not have her dentures, oriented x 1, mucosa is dry , PERRL, Neck supple, Chest bibasilar crackles+, Heart S1S2 regular, bradycardia , Abd soft, nontender, G-tube site C/D/I, LE: no edema, left sided deficit noted. Back: Stage 1 on the coccyx. Labs: WBC 8.4, H/H 9.3/28 (stable), Plt 135, BUN 39, creat 1.0, glucose 83, trop neg. UA negative. Insulin level 181.1 CXR: lungs clear. CT abd/pelvis with contrast: small b/l pleural effusions, bibasilar atelectasis, pericardial effusion, large volume of stool in colon. Large uterine fibroid, no acute pathology. EKG: sinus bradycardia, first degree AV block with NJ interval of 236. No acute changes. Echo (2018): EF > 55%, minimal pericardial effusion. Assessment and plan: 1. Confusion, lethargy, altered mentation 2. Recurrent hypoglycemia in the setting of exogenous insulin (given elevated insulin levels) 3. Type 2 diabetes not on any meds 4. Symptomatic sinus bradycardia 5. Paroxysmal Aflutter/ fib on Eliquis 6. Dementia, previous CVA - Admit to Telemetry - Watch for arrhythmias - Neurochecks Q4 - Accuchecks Q2 - Maintain on D5 1/1NS at 75/hour - Check C-peptide levels, AM cortisol and TSH - Endo consult - No obvious source of infection/ sepsis, lactic acid normal and CT not suggestive of pneumonia - Serial EKG and troponin - Atropine at bedside for HR < 30's, pacer pads on. - Cardio consult - Jessy is currently not on beta blockers - Hold anti-hypertensives as BP is stable for now, resume in AM - Hold all sedative meds including gabapentin - Keep left arm elevated - NPO, swallow eval once patient is more awake - Treat constipation DVT ppx Eliquis. Full code (daughter is POA).
[2017-08-19] MEDS ORDERED: HYDRALAZINE HCL50 M1 PO (20:21)
--- NOTE | 2017-08-19 20:48 | Admission Certification ---
Admission Certification Certification Statement - As attending physician, I certify that at the time of - admission, based on clinical presentation, severity of - symptoms, need for further diagnostic testing and - therapeutic interventions, and risk of adverse outcomes - without in-hospital treatment, in my clinical assessment, - this patient requires an acute hospital stay for a minimum - of two nights or longer. I have also considered psychsocial - factors such as support system, advanced age, financial - issues, cognitive issues, and failed out-patient treatments, - past re-admission history, safety of patient, and lack of - compliance as applicable. Specific rationale supporting this admission is: Recurrent hypoglycemia, bradycardia needs Telemetry monitoring.
--- NOTE | 2017-08-19 22:28 | CT SCAN REPORT ---
EXAMINATION: CT CHEST, ABDOMEN AND PELVIS WITH CONTRAST CLINICAL INFORMATION: Sepsis. 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 Patient is hypoglycemic and bradycardic. COMPARISON: CT scan abdomen and pelvis 07/12/2017, 07/03/2017, 05/08/2017. TECHNIQUE: Multidetector volumetric CT imaging of the chest, abdomen and pelvis was obtained after the administration of 95 mL of intravenous Ultravist without immediate adverse reactions. Coronal and sagittal reformatted images performed at the CT scanner. DLP: 667.96 mGy-cm. FINDINGS: There is artifact from the patient's arms at the side. CT CHEST: Lungs: Bibasilar dependent atelectasis at the lung bases. Central bronchial airways are open. Mediastinum: No mediastinal mass or significant lymphadenopathy. There is a pericardial effusion measuring 2 cm transverse diameter. Pleura: There are small dependent bilateral pleural effusions. The volume of effusion is larger on the left than the right. Axilla: No lymphadenopathy. CT ABDOMEN AND PELVIS: LIVER, GALLBLADDER, AND BILIARY TREE: The liver is normal in size, shape, and attenuation. No focal hepatic lesion or biliary ductal dilatation is present. The gallbladder is unremarkable with no evidence of radiopaque gallstones, gallbladder wall thickening, or obvious pericholecystic inflammatory changes. PANCREAS: The pancreas is atrophic. No inflammation. No pancreatic calcification or pancreatic duct dilatation. SPLEEN: Spleen normal in size and contour. No focal lesion. ADRENAL GLANDS: Adrenal glands are normal in size. No focal mass. KIDNEYS AND URETERS: The kidneys are normal in size, shape, and attenuation. No hydronephrosis, hydroureter, or calculi seen. No perinephric stranding. There are bilateral renal cysts. The largest is a pedunculated cyst at the midpole of the left kidney measuring 2.5 cm. BLADDER: Unremarkable. GASTROINTESTINAL TRACT: There is a large volume of stool in the colon. The largest collection is at the rectum sigmoid extending the colon at the level the hips to a diameter of 6.7 cm. There is no bowel wall thickening however, and no edema surrounding the colon. There is diverticula of the colon but no diverticulitis. The appendix is not seen. There is no inflammation of the mesentery. The small bowel loops are normal. There is a percutaneous gastrotomy tube in place. MESENTERY: No focal inflammation. No free fluid. No free air. No mesenteric mass. ABDOMINAL WALL: No significant hernia is appreciated. LYMPH NODES: Normal. VASCULAR: Extensive vascular calcifications of the aorta and major branch vessels throughout the abdomen and pelvis. PELVIC VISCERA: There is a large uterine fibroid with a large coarse calcification with heterogeneous density of the uterus. OSSEOUS STRUCTURES: Degenerative spondylosis of the spine with disc height narrowing, endplate spurring and facet joint arthrosis. IMPRESSION: 1. Small dependent bilateral pleural effusions. Bibasilar dependent atelectasis at the lung bases. 2. Pericardial effusion. 3. Large volume of stool in colon. No evidence of acute change of bowel. There are diverticula of the colon but no diverticulitis. Percutaneous gastrotomy tube in place. 4. Large uterine fibroid. 5. No suspicious mass in the chest, abdomen or pelvis.
[2017-08-19 22:51] VITALS: BP 142/68
[2017-08-20 06:46] VITALS: BP 112/50
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
[2017-08-20 08:11] LABS: ABSOLUTE BASOPHIL COUNT 0 /CUMM (0.0-0.2); ABSOLUTE EOSINOPHIL COUNT 0.2 /CUMM (0.0-0.7); ABSOLUTE GRANULOCYTE CT 5.7 /CUMM (1.4-6.5); ABSOLUTE MONOCYTE COUNT 0.6 /CUMM (0.10-0.60); BASOPHIL % 0.3 % (0.0-2.0); EOSINOPHIL % 2.2 % (0-5); GRANULOCYTE % 67.6 % (42.2-75.2); HEMATOCRIT 29.5 % (37-47); MEAN CORPUSCULAR HGB 31.6 PG (27.0-31.0); MEAN CORPUSCULAR HGB CONC 33.9 G/DL (33.0-37.0); MEAN CORPUSCULAR VOLUME 93.3 FL (81.0-99.0); MEAN PLATELET VOLUME 12.1 FL (7.4-10.4); PLATELET COUNT 159 /CUMM (130-400); RED BLOOD CELL CT 3.16 /CUMM (4.20-5.40); WHITE BLOOD CELL COUNT 8.5 /CUMM (4.8-10.8)
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
[2017-08-20 13:32] VITALS: BP 140/707
[2017-08-20 22:01] VITALS: BP 146/79
[2017-08-21 06:44] VITALS: BP 124/72
--- NOTE | 2017-08-21 07:17 | PN- Housestaff ---
Cristy Mathis 08/21/17 0717: Subjective Follow-up For: Confusion, lethargy, altered mentation Recurrent hypoglycemia in the setting of exogenous insulin (given elevated insulin levels) Type 2 diabetes not on any meds Sinus bradycardia Tele-Events Since Last Visit: first degree heart block, rate 55-58s Subjective: Seen and examined patient, she is oriented to person only. Review of Systems Constitutional: Denies: see HPI. Objective Last 24 Hrs of Vital Signs/I&O Vital Signs Date Time Temp Pulse Resp B/P B/P Pulse O2 O2 Flow FiO2 Mean Ox Delivery Rate 08/21 1434 98.6 83 20 144/58 95 08/21 0800 Room Air 08/21 0644 98.1 68 18 124/72 98 Room Air 08/20 2201 98.9 58 16 146/79 97 Intake & Output 08/21 1600 08/21 0800 08/21 0000 Intake Total 240 270 420 Output Total Balance 240 270 420 Intake, IV 150 300 Intake, Oral 240 120 120 Patient 142 lb Weight Physical Exam General Appearance: No Acute Distress Cardiovascular: Normal S1, Normal S2 Lungs: Normal Air Movement Abdomen: Soft, No Tenderness Extremities: No Edema Assessment/Plan Assessment: 86 year old woman with h/o paroxysmal Aflutter on Eliquis, HTN, ENEDINA, 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 Patient lives with her daughter Nhi with live in aide and two other aides who care for her and visiting nurse who comes in once a week. She was also noted to be bradycardic to 40's in the ER. CXR: lungs clear. CT abd/pelvis with contrast: small b/l pleural effusions, bibasilar atelectasis, pericardial effusion, large volume of stool in colon. Large uterine fibroid, no acute pathology. EKG: sinus bradycardia, first degree AV block with MS interval of 236. No acute changes. Echo (2018): EF > 55%, minimal pericardial effusion. admitted to the telemetry floor for the following issues Confusion, lethargy, altered mentation asked nursing to place the director of retail merchandising phone at bedside, Type 2 diabetes not on any meds/Recurrent hypoglycemia in the setting of exogenous insulin elevated insulin levels of 181 on admission Cpeptide levels this admission 0.59 Endo on board, apprec recs q4 acctree social work consulted, called and left for her REPORTING DEVELOPER Elise Reyes ext [phone] who does home visits for her. Spoke to her daughter Nhi today, apparently there is insulin at home and she is the only one with access to it. She denes giving her insulin and feels that in might be her hydralazine causing it. In may 08 2017 she was also admitted for hypoglycemia in the setting of high insulin level (93.9) and low C-peptide level (0.49) Sinus bradycardia/Paroxysmal Aflutter/ fib on Eliquis no overnight tele events continue on tele floor continue home meds of eliquis and statin cardio will see pt in am. HTN will restart her home meds of losartan and Hydralazine. continue Zoloft Swallow eval done today, recs: dvt ppx eliquis full code Problem List: 1. Afib 2. Hypertension 3. Sinus bradycardia Pain Ratin Pain Location: na Pain Goal: Pain 4 or less Pain Plan: current regimen Tomorrow's Labs & Rationales: bep/serum glucose Ernesto Chairez 08/21/17 1105: Attending MD Review Statement Attending Statement Attending MD Statement: examined this patient, discuss w/resident/PA/WELDING MACHINE OPERATOR ELECTROSLAG, agreed w/resident/PA/WELDING MACHINE OPERATOR ELECTROSLAG, discussed with family, reviewed EMR data (avail), discussed with nursing, discussed with case mgmt, reviewed images, amended to note Attending Assessment/Plan: Medical team during bedisde rounds. Patient is confused at times. She is aao 1 this am. She is faroese speaking patient. Patient is poor historian. Patient is being treated here for hypoglycemia in possible setting of exogeous insulin usage. Endocrinology is appreciated. Follow recommendatiosn as per endocrinology. Sinus bradycardia with MS interval >200, cardiology consult if no improvement. Avoid b rajiv in future. Obtain SW consult and family involvement for future goals of care. Also inform PCP about admission.
--- NOTE | 2017-08-21 07:25 | PN- Diabetes ---
Assessment/Plan Diabetes Assessment: The patient is awake this morning. Apparently she is confused at times. Review of her blood sugars reveals that her sugar at 5 AM was 100. She is presently off all IV fluids and off all insulin. The suspicion is that she had received exogenous insulin prior to admission which was the cause of her low blood sugar. Plan: Suggest continue to monitor the patient sugar today. Keep off all insulin.'s. This morning we should measure on fasting blood work a fasting blood sugar, fasting insulin level, and fasting C-peptide level. These labs were ordered on yesterday morning's blood they would not be valid because the patient was on IV fluids that contained glucose at that time. Subjective Subjective: Feels okay Objective Last 24 Hrs of Vital Signs/I&O Vital Signs Date Time Temp Pulse Resp B/P B/P Pulse O2 O2 Flow FiO2 Mean Ox Delivery Rate 08/21 0644 98.1 68 18 124/72 98 Room Air 08/20 2201 98.9 58 16 146/79 97 08/20 1332 97.4 73 20 140/707 92 Intake & Output 08/21 0800 08/21 0000 08/20 1600 Intake Total 242 764 6627 Output Total Balance 641 556 6911 Intake, IV 150 300 600 Intake, Oral 120 120 400 Patient 142 lb Weight Physical Exam General Appearance: alert, awake, comfortable Head: normal appearance Neck: normal inspection Respiratory: normal breath sounds Cardiovascular: regular rate/rhythm Extremities: normal inspection Current Medications: Current Medications Sig/Renee Start time Last Medication Dose Route Stop Time Status Admin Acetaminophen 325 MG Q4P PRN 08/20 1430 AC PO Apixaban 2.5 MG BID 08/19 2100 AC 08/20 PO 2048 Atorvastatin Calcium 80 MG 1700 08/20 1700 AC 08/20 PO 1550 Dextrose/Sodium 1,000 ML Q13H 08/20 1115 DC 08/20 Chloride IV 08/21 0014 1116 Ferrous Sulfate 325 MG DAILY 08/20 899 AC 08/20 PO 1303 Lactobacillus 1 CAP DAILY 08/20 899 AC 08/20 Acidophilus PO 1303 Multivitamins 1 TAB DAILY 08/20 899 AC 08/20 PO 1303 Omeprazole 40 MG DAILY AC 08/20 0700 AC 08/21 PO 0511 Polyethylene Glycol 17 GM DAILY 08/20 899 AC 08/20 PO 1302 Senna/Docusate Sodium 2 TAB DAILY 08/20 899 AC 08/20 PO 1302 Sertraline HCl 50 MG DAILY 08/20 09 AC 08/20 PO 1302 Findings Pertinent Lab/Klaus Results: Laboratory Tests 08/21 08/20 08/20 0603 0614 0614 Chemistry Sodium (137 - 145 mmol/L) Pending 142 Potassium (3.5 - 5.1 mmol/L) Pending 3.8 Chloride (98 - 107 mmol/L) Pending 110 H Carbon Dioxide (22 - 30 mmol/L) Pending 21 L Anion Gap (5 - 16) Pending 12 BUN (7 - 17 mg/dL) Pending 36 H Creatinine (0.5 - 1.0 mg/dL) Pending 1.0 Estimated GFR (>60 ml/min) 52 L BUN/Creatinine Ratio (7 - 25 %) Pending 36.0 H Insulin Level (3.0 - 25.0 mIU/mL) 8.5 Proinsulin Pending C-Peptide Pending Cortisol AM Sample (4.46 - 22.7 ug/dL) 10.4 Hematology CBC w Diff NO MAN DIFF REQ WBC (4.8 - 10.8 /CUMM) 8.5 RBC (4.20 - 5.40 /CUMM) 3.16 L Hgb (12.0 - 16.0 G/DL) 10.0 L Hct (37 - 47 %) 29.5 L MCV (81.0 - 99.0 FL) 93.3 MCH (27.0 - 31.0 PG) 31.6 H MCHC (33.0 - 37.0 G/DL) 33.9 RDW (11.5 - 14.5 %) 14.0 Plt Count (130 - 400 /CUMM) 159 MPV (7.4 - 10.4 FL) 12.1 H Gran % (42.2 - 75.2 %) 67.6 Lymphocytes % (20.5 - 51.1 %) 23.2 Monocytes % (1.7 - 9.3 %) 6.7 Eosinophils % (0 - 5 %) 2.2 Basophils % (0.0 - 2.0 %) 0.3 Absolute Granulocytes (1.4 - 6.5 /CUMM) 5.7 Absolute Lymphocytes (1.2 - 3.4 /CUMM) 2.0 Absolute Monocytes (0.10 - 0.60 /CUMM) 0.6 Absolute Eosinophils (0.0 - 0.7 /CUMM) 0.2 Absolute Basophils (0.0 - 0.2 /CUMM) 0 08/20 08/19 08/19 08/19 08/19 0052 2225 6 2009 1924 Chemistry C-Peptide Cancelled Lactic Acid (0.7 - 2.1 mmol/L) 1.0 Cancelled 1.0 Cancelled Troponin I (< 0.11 ng/ml) < 0.01 08/19 08/19 1500 1405 Chemistry C-Peptide Pending Urines Urine Color (YEL,AMB,STR) YEL Urine Clarity (CLEAR) CLEAR Urine pH (5.0 - 8.0) 6.0 Ur Specific Potter (1.001 - 1.035) 1.025 Urine Protein (NEG,<30 MG/DL) NEG Urine Ketones (NEG) NEG Urine Nitrite (NEG) NEG Urine Bilirubin (NEG) NEG Urine Urobilinogen (0.1 - 1.0 EU/dl) 0.2 Ur Leukocyte Esterase (NEG) NEG Ur Microscopic EXAM NOT REQUIRED Urine Hemoglobin (NEG) NEG Urine Glucose (N MG/DL) NEG 08/19 1405 Chemistry Sodium (137 - 145 mmol/L) 145 Potassium (3.5 - 5.1 mmol/L) 3.5 Chloride (98 - 107 mmol/L) 113 H Carbon Dioxide (22 - 30 mmol/L) 22 Anion Gap (5 - 16) 9 BUN (7 - 17 mg/dL) 39 H Creatinine (0.5 - 1.0 mg/dL) 1.0 Estimated GFR (>60 ml/min) 52 L BUN/Creatinine Ratio (7 - 25 %) 39.0 H Glucose (65 - 99 mg/dL) 83 Insulin Level (3.0 - 25.0 mIU/mL) 181.1 H Calcium (8.4 - 10.2 mg/dL) 9.2 Total Bilirubin (0.2 - 1.3 mg/dL) 0.6 AST (14 - 36 U/L) 27 ALT (9 - 52 U/L) 26 Alkaline Phosphatase (<127 U/L) 107 Troponin I (< 0.11 ng/ml) < 0.01 Total Protein (6.3 - 8.2 g/dL) 5.6 L Albumin (3.5 - 5.0 g/dL) 2.9 L Globulin (1.9 - 4.2 gm/dL) 2.7 Albumin/Globulin Ratio (1.1 - 2.2 %) 1.1 TSH (0.270 - 4.200 uIU/mL) 0.489 Hematology CBC w Diff NO MAN DIFF REQ WBC (4.8 - 10.8 /CUMM) 8.4 RBC (4.20 - 5.40 /CUMM) 2.98 L Hgb (12.0 - 16.0 G/DL) 9.3 L Hct (37 - 47 %) 28.0 L MCV (81.0 - 99.0 FL) 94.0 MCH (27.0 - 31.0 PG) 31.0 MCHC (33.0 - 37.0 G/DL) 33.0 RDW (11.5 - 14.5 %) 14.1 Plt Count (130 - 400 /CUMM) 135 MPV (7.4 - 10.4 FL) 11.2 H Gran % (42.2 - 75.2 %) 78.3 H Lymphocytes % (20.5 - 51.1 %) 13.1 L Monocytes % (1.7 - 9.3 %) 6.9 Eosinophils % (0 - 5 %) 1.5 Basophils % (0.0 - 2.0 %) 0.2 Absolute Granulocytes (1.4 - 6.5 /CUMM) 6.6 H Absolute Lymphocytes (1.2 - 3.4 /CUMM) 1.1 L Absolute Monocytes (0.10 - 0.60 /CUMM) 0.6 Absolute Eosinophils (0.0 - 0.7 /CUMM) 0.1 Absolute Basophils (0.0 - 0.2 /CUMM) 0
[2017-08-21 14:34] VITALS: BP 144/58
[2017-08-21 21:45] VITALS: BP 136/84
[2017-08-22 06:52] VITALS: BP 124/70
--- NOTE | 2017-08-22 08:32 | PN- Diabetes ---
Assessment/Plan Diabetes Assessment: The patient states she feels cold today. She has had no further low blood sugars. The data on admission when the patient presented with hypoglycemia clearly show a very elevated insulin level of 181 with a low C-peptide. This is consistent with the administration of exogenous insulin. The daughter says there is insulin at home but denies giving any insulin to her mother. Plan: This is the patient's second admission where the patient presents with severe hypoglycemia and has been found to have high insulin levels and low C-peptide. Somehow the patient is getting exogenous insulin inappropriately as the cause of her hypoglycemia. We have not prescribed insulin for this patient at any time. We need to send protective services to the house to investigate this issue. Subjective Subjective: Feels cold Objective Last 24 Hrs of Vital Signs/I&O Vital Signs Date Time Temp Pulse Resp B/P B/P Pulse O2 O2 Flow FiO2 Mean Ox Delivery Rate 08/23 651 98.7 70 18 124/70 99 Room Air 08/21 2144 98.0 70 16 136/84 99 Room Air 08/22 2039 70 150/90 08/21 1434 98.6 83 20 144/58 95 Intake & Output 08/22 1600 08/22 0000 Intake Total 120 240 Output Total Balance 120 240 Intake, Oral 120 240 Number 4 5 Bowel Movements Patient 141 lb Weight Weight Bed scale Measurement Method Vital Signs Date Time Temp Pulse Resp B/P B/P Pulse O2 O2 Flow FiO2 Mean Ox Delivery Rate 08/23 651 98.7 70 18 124/70 99 Room Air 08/21 2144 98.0 70 16 136/84 99 Room Air 08/22 2039 70 150/90 08/21 1434 98.6 83 20 144/58 95 Intake & Output 08/22 0000 Intake Total 120 240 Output Total Balance 120 240 Intake, Oral 120 240 Number 4 5 Bowel Movements Patient 141 lb Weight Weight Bed scale Measurement Method Physical Exam General Appearance: no apparent distress, alert, awake Head: normal appearance Neck: normal inspection Respiratory: normal breath sounds Cardiovascular: regular rate/rhythm Abdomen: normal bowel sounds Extremities: normal inspection Current Medications: Current Medications Sig/Renee Start time Last Medication Dose Route Stop Time Status Admin Acetaminophen 325 MG Q4P PRN 08/20 1430 AC PO Apixaban 2.5 MG BID 08/19 2100 AC 08/21 PO 2033 Atorvastatin Calcium 80 MG 1700 08/20 1700 AC 08/21 PO 1639 Docusate Sodium 100 MG DAILY 08/21 1615 AC 08/21 PO 1639 Ferrous Sulfate 325 MG DAILY 08/20 899 AC 08/21 PO 0828 Hydralazine HCl 100 MG DAILY 08/22 899 CAN PO Insulin Aspart 2 UNITS ONCE ONE 08/21 2130 CAN SC 08/21 213 Lactobacillus 1 CAP DAILY 08/20 899 AC 08/21 Acidophilus PO 28 Losartan Potassium 50 MG QPM 08/21 2100 AC 08/21 PO 2040 Multivitamins 1 TAB DAILY 08/20 899 AC 08/21 PO 0828 Nystatin 1 RU TID 08/22 0259 AC 08/22 TOP 0544 Olanzapine 5 MG ONCE ONE 08/21 2330 DC IM 08/21 233 Omeprazole 40 MG DAILY AC 08/20 699 AC 08/22 PO 0544 Polyethylene Glycol 17 GM DAILY 08/20 899 DC 08/21 PO 28 Ramelteon 8 MG AT BEDTIME 08/21 2215 AC PO Senna/Docusate Sodium 2 TAB DAILY 08/20 899 DC 08/21 PO 0828 Sertraline HCl 50 MG DAILY 08/20 09 AC 08/21 PO 0828 Zinc Oxide 1 RU BID 08/22 09 AC TOP Findings Pertinent Lab/Klaus Results: Laboratory Tests 08/22 08/21 08/21 08/21 0607 0754 0736 0603 Chemistry Sodium (137 - 145 mmol/L) Pending 141 Potassium (3.5 - 5.1 mmol/L) Pending 3.6 Chloride (98 - 107 mmol/L) Pending 111 H Carbon Dioxide (22 - 30 mmol/L) Pending 21 L Anion Gap (5 - 16) Pending 9 BUN (7 - 17 mg/dL) Pending 25 H Creatinine (0.5 - 1.0 mg/dL) Pending 0.9 Estimated GFR (>60 ml/min) 59 L BUN/Creatinine Ratio (7 - 25 %) Pending 27.8 H Glucose (65 - 99 mg/dL) Pending 106 H Insulin Level (3.0 - 25.0 mIU/mL) 3.0 C-Peptide Pending Magnesium Pending Laboratory Tests 08/22 606 Chemistry Sodium Pending Potassium Pending Chloride Pending Carbon Dioxide Pending Anion Gap Pending BUN Pending Creatinine Pending BUN/Creatinine Ratio Pending Glucose Pending Magnesium Pending
--- NOTE | 2017-08-22 08:44 | PN- Housestaff ---
Cristy Mathis 08/22/17 0844: Subjective Follow-up For: Confusion, lethargy, altered mentation Recurrent hypoglycemia in the setting of exogenous insulin (given elevated insulin levels) Type 2 diabetes not on any meds Sinus bradycardia Complaints: pt unable to provide hx Tele-Events Since Last Visit: sinus HR 60s VA 0.24 Subjective: Seen and examined patient this morning, complaining of pain in the left hand which is paralysed. Had over night multiple episodes of diarrhea (was colace on top of her regimen for constipation). Per nurse She is only eating 10% of her meals. Review of Systems Constitutional: Reports: see HPI. Objective Last 24 Hrs of Vital Signs/I&O Vital Signs Date Time Temp Pulse Resp B/P B/P Pulse O2 O2 Flow FiO2 Mean Ox Delivery Rate 08/23 799 Room Air 08/22 0652 98.7 70 18 124/70 99 Room Air 08/21 2145 98.0 70 16 136/84 99 Room Air 08/21 2040 70 150/90 08/21 1434 98.6 83 20 144/58 95 Intake & Output 08/22 1600 08/22 0800 08/22 0000 Intake Total 120 240 Output Total Balance 120 240 Intake, Oral 120 240 Number 4 5 Bowel Movements Patient 141 lb Weight Weight Bed scale Measurement Method Physical Exam General Appearance: Alert, No Acute Distress Cardiovascular: Normal S1, Normal S2 Lungs: Normal Air Movement Abdomen: Normal Bowel Sounds, Soft Neurological: left arm paralysis Extremities: No Edema Current Medications: Current Medications Sig/Renee Start time Last Medication Dose Route Stop Time Status Admin Acetaminophen 325 MG Q4P PRN 08/20 1430 AC PO Apixaban 2.5 MG BID 08/19 2100 AC 08/22 PO 1016 Atorvastatin Calcium 80 MG 1700 08/20 1700 AC 08/21 PO 1639 Docusate Sodium 100 MG DAILY 08/21 1615 AC 08/21 PO 1639 Ferrous Sulfate 325 MG DAILY 08/20 899 AC 08/22 PO 0937 Hydralazine HCl 100 MG DAILY 08/22 899 CAN PO Insulin Aspart 2 UNITS ONCE ONE 08/21 2129 CAN SC 08/21 213 Lactobacillus 1 CAP DAILY 08/20 899 AC 08/22 Acidophilus PO 0937 Losartan Potassium 50 MG QPM 08/21 2100 AC 08/21 PO 204 Multivitamins 1 TAB DAILY 08/20 899 AC 08/22 PO 0937 Nystatin 1 RU TID 08/22 0259 08/22 TOP 0936 Olanzapine 5 MG ONCE ONE 08/21 2330 DC IM 08/21 2331 Omeprazole 40 MG DAILY AC 08/20 699 AC 08/22 PO 0544 Polyethylene Glycol 17 GM DAILY 08/20 899 DC 08/21 PO 0828 Ramelteon 8 MG AT BEDTIME 08/21 2215 AC PO Senna/Docusate Sodium 2 TAB DAILY 08/20 899 DC 08/21 PO 0828 Sertraline HCl 50 MG DAILY 08/20 899 AC 08/22 PO 0937 Zinc Oxide 1 RU BID 08/22 899 08/22 TOP 0936 Last 24 Hrs of Lab/Klaus Results Last 24 Hrs of Labs/Mics: Laboratory Tests 08/22/17 0607: Anion Gap 10, Estimated GFR 59 L, BUN/Creatinine Ratio 24.4, Glucose 102 H, Magnesium 1.8, Thyroxine (T4) 7.6 Assessment/Plan Assessment: 86 year old woman with h/o paroxysmal Aflutter on Eliquis, HTN, ENEDINA, 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 CT abd/pelvis with contrast: small b/l pleural effusions, bibasilar atelectasis, pericardial effusion, large volume of stool in colon. Large uterine fibroid, no acute pathology. EKG: sinus bradycardia, first degree AV block with VA interval of 236. No acute changes. Echo (2018): EF > 55%, minimal pericardial effusion. admitted to the telemetry floor for the following issues Confusion, lethargy, altered mentation Improved, she is alert, at times she answers question appropriately. On review of the previous records of her recent admissions, this seems like her baseline history of Type 2 diabetes not on any meds/Recurrent hypoglycemia in the setting of exogenous insulin elevated insulin levels of 181 on admission with low C-peptide levels 0.59 Endo on board, apprec recs q4 accuchecks, Her fingersticks have been 106-123 social work consulted Family meeting at 1pm today with daughter and to discuss about the exogenous adminstration of insulin. Kirsten (social work), Fay (RN), Miguelina RN (from [facility]), Dr. Chairez and I were present. They vehemently deny that any outside insulin was administered to her, however there are other people who are living in the house including the caregiver and her . Sinus bradycardia/Paroxysmal Aflutter/ fib on Eliquis no overnight tele events continue on tele floor continue home meds of eliquis and statin cardio consulted HTN will restart her home meds of losartan and hold her Hydralazine for now Low Cassius score nutrition consulted, will see if she can benefit from tube feeds There is also some concern by the [facility] that patient has not been getting enough nutrition at home. continue Zoloft dvt ppx eliquis full code Problem List: 1. S/P percutaneous endoscopic gastrostomy (PEG) tube placement 2. Hypoglycemia Pain Ratin Pain Location: na Pain Goal: Pain 4 or less Pain Plan: current regemin Tomorrow's Labs & Rationales: none required Ernesto Chairez 08/22/17 1024: Attending MD Review Statement Attending Statement Attending MD Statement: examined this patient, discuss w/resident/PA/[employer], agreed w/resident/PA/[employer], discussed with family, reviewed EMR data (avail), discussed with nursing, discussed with case mgmt, reviewed images, amended to note Attending Assessment/Plan: Medical team during bedside rounds. Patient is confused at times. Off restraints. She is aao 1. She is moroccan speaking patient. Patient is poor historian. Patient is being treated here for hypoglycemia in possible setting of exogeous insulin usage. Patient recieved insulin which is not prescribed. Endocrinology is appreciated. Follow recommendations as per endocrinology. Blood sugars better. No inuslin for now. Sinus bradycardia with VA interval >200, cardiology consult today. Avoid b rajiv in future. SW consult and family involvement for future goals of care. Arrange family meeting today.
[2017-08-22 14:00] VITALS: BP 130/80
--- NOTE | 2017-08-22 14:43 | Cons- Cardiology ---
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 Landaverde is an 86-year-old female with a PMH of atrial fibrillation on eliquis, hypertension, hyperlipidemia, history of varicose veins, and remote history of pulmonary embolism. She also has a past medical history significant for right-sided MCA infarct (2016), with residual left sided deficit, dementia, who is bedbound/wheelchair bound and s/p PEG tube placement. Also, she has a PMH of GERD, diverticulosis, right renal artery stenosis, osteoarthritis, osteopenia, depression, anxiety, and obesity. She presents to the hospital from home after being found hypoglycemic, 38. She was given sugar via J tube, and IV D10W by EMS. On arrival, her glucose is 149, but has continued to drop and she is now on D51/2W. Additionally, she was found to be bradycardic in the 40s. I was asked to assume the patient's cardiac care. Allergies/Medications Allergies: Coded Allergies: NO KNOWN ALLERGIES (05/29/15) Home Med List: Acetaminophen 325 MG TABLET 2 TAB PO TID PAIN (Reported) Apixaban (Eliquis) 2.5 MG TABLET 1 TAB PO BID BLOOD THINNR (Reported) Atorvastatin Calcium 80 MG TABLET 1 TAB PO 1700 HLD (Reported) Ergocalciferol (Vitamin D2) (Vitamin D2) 50,000 UNIT CAPSULE 1 CAP PO QFRI SUPPLEMENT (Reported) Ferrous Sulfate (IRON) 325 MG (65 MG IRON) TABLET 1 TAB PO DAILY SUPPLEMENT ( Reported) Furosemide (Lasix) 20 MG TABLET 1 TAB PO DAILY cardiac health FOLLOW WITH CXR AND PCP REGARDING CONTINUATION Gabapentin 100 MG CAPSULE 1 CAP PO DAILY NEUROPATHY (Reported) Hydralazine HCl 50 MG TABLET 100 MG PO DAILY HIGH BLOOD PRESSURE Lactobacillus Acidophilus (Probiotic) 10 BILLION CELL CAPSULE 1 CAP PO DAILY PROBIOTIC (Reported) Losartan Potassium 50 MG TABLET 1 TAB PO QPM HEART/BP (Reported) Multivitamin (Multivitamins) 1 EACH CAPSULE 1 TAB PO DAILY SUPPLEMENT ( Reported) Pantoprazole Sodium 40 MG TABLET.DR 1 TAB PO DAILY GI (Reported) Polyethylene Glycol 3350 (Miralax) 17 GRAM/DOSE POWDER 17 GM PO DAILY CONSTIPATION pLEASE HOLD IF LOOSE STOOL Sennosides/Docusate Sodium (Senna Plus Tablet) 8.6 MG-50 MG TABLET 2 TAB PO DAILY CONSTIPATION PLEASE HOLD IF LOOSE STOOL Sertraline HCl 25 MG TABLET 2 TAB PO DAILY MENTAL HEALTH (Reported) Vitamin B Complex (Super B-50 Complex) 1 EACH CAPSULE 1 CAP PO DAILY SUPPLEMENT (Reported) Current Medications: Current Medications Sig/Renee Start time Last Medication Dose Route Stop Time Status Admin Acetaminophen 325 MG Q4P PRN 08/20 1430 AC PO Apixaban 2.5 MG BID 08/19 2100 AC 08/22 PO 1016 Atorvastatin Calcium 80 MG 1700 08/20 1700 AC 08/21 PO 1639 Docusate Sodium 100 MG DAILY 08/21 1615 AC 08/21 PO 1639 Ferrous Sulfate 325 MG DAILY 08/20 899 AC 08/22 PO 0937 Hydralazine HCl 100 MG DAILY 08/22 899 CAN PO Insulin Aspart 2 UNITS ONCE ONE 08/21 2130 CAN SC 08/21 213 Lactobacillus 1 CAP DAILY 08/20 899 AC 08/22 Acidophilus PO 0937 Losartan Potassium 50 MG QPM 08/21 2100 AC 08/21 PO 2040 Multivitamins 1 TAB DAILY 08/20 09 AC 08/22 PO 0937 Nystatin 1 RU TID 08/22 0259 AC 08/22 TOP 0936 Olanzapine 5 MG ONCE ONE 08/21 2330 DC IM 08/21 2331 Omeprazole 40 MG DAILY AC 08/20 07 AC 08/22 PO 0544 Polyethylene Glycol 17 GM DAILY 08/20 09 DC 08/21 PO 0828 Ramelteon 8 MG AT BEDTIME 08/21 2215 AC PO Senna/Docusate Sodium 2 TAB DAILY 08/20 09 DC 08/21 PO 0828 Sertraline HCl 50 MG DAILY 08/20 899 AC 08/22 PO 0937 Zinc Oxide 1 RU BID 08/22 899 AC 08/22 TOP 0936 Past History Travel History Traveled to [place] past 21 day No Medical History Neurological: CVA, dementia EENT: cataracts, epistaxis Cardiovascular: AFIB, hypertension, hyperlipidemia, varicose veins Respiratory: pulmonary embolism (remote), pulmonary edema Gastrointestinal: constipation, ACID REFLUX Post PEG pandiverticulosis coli, L> R Hx colon adenoma Hepatic: NONE Renal: RIGHT RENAL ARTERY STENOSIS Musculoskeletal: chronic back pain, disk herniation, osteoarthritis, osteopenia Psychiatric: depression (post CVA) Endocrine: diabetes, obesity, vitamin D deficiency Blood Disorders: anemia Cancer(s): NONE 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 MOTHER (MVA). , Age 30-40; Cause: MVA (motor vehicle accident). FATHER, , Age 30-40; Cause: MVA (motor vehicle accident). Psychosocial History Where Do You Live? Home Who Do You Live With? spouse ( & dtr, Nhi Landaverde), child Services at Home: Home Health Aide, Nursing Primary Language: Kyrgyz, Uruguayan Smoking Status: Former Smoker Living Will? no Power of Hand Inspector/HCP? no Functional Ability ADLs Needs Assist: dressing, eating, toileting, bathing. Ambulation: non-ambulatory IADLs Needs Assist: shopping, housework, finances, food prep, telephone, transportation, medication admin. Exam & Diagnostic Data Vital Signs and I&O Vital Signs Date Time Temp Pulse Resp B/P B/P Pulse O2 O2 Flow FiO2 Mean Ox Delivery Rate 08/23 799 Room Air 08/22 0652 98.7 70 18 124/70 99 Room Air 08/21 2145 98.0 70 16 136/84 99 Room Air 08/21 2040 70 150/90 Intake & Output 08/22 1600 08/22 0800 08/22 0000 08/21 1600 08/21 0800 08/21 0000 Intake Total 240 120 240 240 270 420 Output Total Balance 240 120 240 240 270 420 Intake, IV 150 300 Intake, Oral 240 120 240 240 120 120 Number 3 4 5 Bowel Movements Patient 141 lb 141 lb 142 lb Weight Weight Bed scale Measurement Method Physical Exam: General Appearance lethargic, but responds to tactile and verbal stimuli Skin stage 1 coccygeal ulcer 2x2cm Skin Temp/Moisture Exam: Warm/Dry HEENT Atraumatic, PERRLA, Mucous Membr. moist/pink Cardiovascular Normal S1, Normal S2, bradycardic, 1/6 systolic murmur Lungs bibasilar rales Abdomen Normal Bowel Sounds, Soft, No Tenderness, PEG tube in place w/o underlying errythema Neurological hemiplegia on the left side with left facial froop. pt is lethargic and cannot follow commads to perform a thorough neuro exam Extremities No Edema, No Tenderness/Swelling Labs/Klaus Results: Laboratory Tests 08/22 08/21 08/21 08/21 0607 0750 0768 0627 Chemistry Sodium (137 - 145 mmol/L) 144 141 Potassium (3.5 - 5.1 mmol/L) 3.5 3.6 Chloride (98 - 107 mmol/L) 113 H 111 H Carbon Dioxide (22 - 30 mmol/L) 21 L 21 L Anion Gap (5 - 16) 10 9 BUN (7 - 17 mg/dL) 22 H 25 H Creatinine (0.5 - 1.0 mg/dL) 0.9 0.9 Estimated GFR (>60 ml/min) 59 L 59 L BUN/Creatinine Ratio (7 - 25 %) 24.4 27.8 H Glucose (65 - 99 mg/dL) 102 H 106 H Insulin Level (3.0 - 25.0 mIU/mL) 3.0 C-Peptide (0.80 - 3.85 ng/mL) 1.22 Magnesium (1.6 - 2.3 mg/dL) 1.8 Thyroxine (T4) (4.5 - 10.9 ug/dL) 7.6 Assessment/Plan Assessment/Plan Assessment: 1. 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 HTN 3. Mental status changes with symptomatic hypoglycemia 4. Anemia 5. History of prior CVA Recommendatons: -I discussed the situation with the patient's and daughter. -Since admission, the patient has had episodes of sinus bradycardia but no profound bradyarrhythmias or any obvious current indication for PPM -I would likel to review all of the available inpatient records and also obtain any available outpatient records for further review. -Continue current treatment for now -IF there are any changes, the indication for PPM can be readdressed - Maintain on telemetry monitoring while in hospital please. Consult Acknowledgment - Thank you for your consult request.
[2017-08-22 22:30] VITALS: BP 126/58
[2017-08-23 06:45] VITALS: BP 144/60
--- NOTE | 2017-08-23 08:41 | PN- Housestaff ---
Mimi ARORA,Anais 08/23/17 0841: Subjective Follow-up For: Confusion, lethargy, altered mentation Recurrent hypoglycemia in the setting of exogenous insulin (given elevated insulin levels) Type 2 diabetes not on any meds Sinus bradycardia Tele-Events Since Last Visit: Sinus bradycardia, 4050s, QRS 0.08, [place] 0.24 Subjective: Patient was seen and examined at bedside complaining of pain in her back and arms, no overnight events Review of Systems Constitutional: Reports: see HPI. Objective Last 24 Hrs of Vital Signs/I&O Vital Signs Date Time Temp Pulse Resp B/P B/P Pulse O2 O2 Flow FiO2 Mean Ox Delivery Rate 08/23 0645 97.6 61 20 144/60 97 Room Air 08/23 0000 Room Air 08/22 2230 98.7 48 20 126/58 97 Room Air 08/22 2023 60 130/58 / 1400 98.0 53 20 130/80 98 Intake & Output 08/23 1600 08/23 0800 08/23 0000 Intake Total 100 360 Output Total Balance 100 360 Intake, Oral 100 360 Number 1 2 Bowel Movements Patient 145 lb Weight Weight Bed scale Measurement Method Physical Exam General Appearance: Alert, Cooperative, No Acute Distress Cardiovascular: Normal S1, Normal S2 Lungs: Normal Air Movement Abdomen: Normal Bowel Sounds, Soft Neurological: Left arm paralysis Extremities: No Edema Current Medications: Current Medications Sig/Renee Start time Last Medication Dose Route Stop Time Status Admin Acetaminophen 325 MG .STK-MED ONE 08/22 2019 DC PO 08/22 2020 Acetaminophen 325 MG Q4P PRN 08/20 1430 AC 08/23 PO 0803 Apixaban 2.5 MG BID 08/19 2100 AC 08/23 PO 0801 Atorvastatin Calcium 80 MG 1700 08/20 1700 AC 08/22 PO 1602 Docusate Sodium 100 MG DAILY 08/21 1615 AC 08/23 PO 0801 Ferrous Sulfate 325 MG DAILY 08/20 899 AC 08/23 PO 0801 Lactobacillus 1 CAP DAILY 08/20 899 AC 08/23 Acidophilus PO 0801 Losartan Potassium 50 MG QPM 08/21 2100 AC 08/22 PO 202 Multivitamins 1 TAB DAILY 08/20 899 AC 08/23 PO 0801 Nystatin 1 RU TID 08/22 0259 AC 08/23 TOP 0802 Omeprazole 40 MG DAILY AC 08/20 0700 AC 08/23 PO 0610 Potassium Chloride 40 MEQ BID 08/22 1446 DC 08/22 PO 08/22 2101 2016 Ramelteon 8 MG AT BEDTIME 08/21 2215 AC 08/22 PO 2017 Sertraline HCl 50 MG DAILY 08/20 0900 AC 08/23 PO 0801 Zinc Oxide 1 RU BID 08/22 09 AC 08/23 TOP 0804 Assessment/Plan Assessment: 86 year old woman with h/o paroxysmal Aflutter on Eliquis, HTN, ENEDINA, 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 CT abd/pelvis with contrast: small b/l pleural effusions, bibasilar atelectasis, pericardial effusion, large volume of stool in colon. Large uterine fibroid, no acute pathology. EKG: sinus bradycardia, first degree AV block with [place] interval of 236. No acute changes. Echo (2018): EF > 55%, minimal pericardial effusion. admitted to the telemetry floor for the following issues Confusion, lethargy, altered mentation Improved, she is alert, at times she answers question appropriately. On review of the previous records of her recent admissions, this seems like her baseline history of Type 2 diabetes not on any meds/Recurrent hypoglycemia in the setting of exogenous insulin elevated insulin levels of 181 on admission with low C-peptide levels 0.59 Endo on board, apprec recs q4 accuchecks, Her fingersticks have been 106-123 social work consulted Sinus bradycardia/Paroxysmal Aflutter/ fib on Eliquis no overnight tele events continue on tele floor continue home meds of eliquis and statin cardio consulted HTN Continue home meds of losartan and hold her Hydralazine for now Low Cassius score nutrition consulted, will see if she can benefit from tube feeds There is also some concern by the [facility] that patient has not been getting enough nutrition at home. continue Zoloft dvt ppx eliquis full code Problem List: 1. S/P percutaneous endoscopic gastrostomy (PEG) tube placement 2. Hypertension Pain Ratin Pain Location: NA Pain Goal: Remain pain free Pain Plan: [place] Tomorrow's Labs & Rationales: N/A Blanka Horton MD 08/23/17 1455: Attending MD Review Statement Attending Statement Attending MD Statement: examined this patient, discuss w/resident/PA/INSET CUTTER, agreed w/resident/PA/INSET CUTTER, reviewed EMR data (avail) Attending Assessment/Plan: Patient is doing well. Her fingersticks remain normal. Awaiting social work and case management involvement. Will continue to follow endocrine recommendations.
--- NOTE | 2017-08-23 09:26 | PN- Diabetes ---
Assessment/Plan Diabetes Assessment: The patient has had no further low blood sugars since coming to the hospital. Her sugar metabolism has therefore normalized. Once again on admission the patient was found to have a high insulin level with a low C-peptide level. This confirms that she had received exogenous insulin. The patient's blood sugar in the lab this morning is 102. Plan: Suggest continue to observe blood sugars. Further investigations need to be done as to how the patient received insulin at home which was not prescribed for her. Subjective Subjective: Feels okay. Confused at times Review of Systems Constitutional: Denies: chills, fever. Cardiovascular: Denies: chest pain. Gastrointestinal: Denies: abdominal pain, nausea. Objective Last 24 Hrs of Vital Signs/I&O Vital Signs Date Time Temp Pulse Resp B/P B/P Pulse O2 O2 Flow FiO2 Mean Ox Delivery Rate 08/23 0545 97.6 61 20 144/60 97 Room Air 08/23 0000 Room Air 08/22 2230 98.7 48 20 126/58 97 Room Air 08/22 2022 60 130/58 08/22 1400 98.0 53 20 130/80 98 Intake & Output 08/23 1600 08/23 0800 08/23 0000 Intake Total 100 360 Output Total Balance 100 360 Intake, Oral 100 360 Number 1 2 Bowel Movements Patient 145 lb Weight Weight Bed scale Measurement Method Vital Signs Date Time Temp Pulse Resp B/P B/P Pulse O2 O2 Flow FiO2 Mean Ox Delivery Rate 08/23 0545 97.6 61 20 144/60 97 Room Air / 0000 Room Air 08/22 2230 98.7 48 20 126/58 97 Room Air 08/22 2022 60 130/58 08 1400 98.0 53 20 130/80 98 Intake & Output 08/23 1600 08/23 0800 08/23 0000 Intake Total 100 360 Output Total Balance 100 360 Intake, Oral 100 360 Number 1 2 Bowel Movements Patient 145 lb Weight Weight Bed scale Measurement Method Physical Exam General Appearance: alert, awake Head: normal appearance Respiratory: normal breath sounds Abdomen: normal bowel sounds Current Medications: Current Medications Sig/Renee Start time Last Medication Dose Route Stop Time Status Admin Acetaminophen 325 MG .STK-MED ONE 08/22 2018 DC PO 08/23 2019 Acetaminophen 325 MG Q4P PRN 08/20 1430 AC 08/23 PO 0803 Apixaban 2.5 MG BID 08/19 2100 AC 08/23 PO 0801 Atorvastatin Calcium 80 MG 1700 08/20 1700 AC 08/22 PO 1602 Docusate Sodium 100 MG DAILY 08/21 1615 AC 08/23 PO 0801 Ferrous Sulfate 325 MG DAILY 08/20 899 AC 08/23 PO 0801 Lactobacillus 1 CAP DAILY 08/20 899 AC 08/23 Acidophilus PO 0801 Losartan Potassium 50 MG QPM 08/21 2100 AC 08/22 PO 2023 Multivitamins 1 TAB DAILY 08/20 899 AC 08/23 PO 0801 Nystatin 1 RU TID 08/22 0259 AC 08/23 TOP 0802 Omeprazole 40 MG DAILY AC 08/20 07 AC 08/23 PO 0610 Potassium Chloride 40 MEQ BID 08/22 1446 DC 08/22 PO 08/22 2102016 Ramelteon 8 MG AT BEDTIME 08/21 2215 AC 08/22 PO 2016 Sertraline HCl 50 MG DAILY 08/20 899 AC 08/23 PO 0801 Zinc Oxide 1 RU BID 08/22 899 AC 08/23 TOP 0804
[2017-08-23 15:33] VITALS: BP 130/60
[2017-08-23 22:16] VITALS: BP 190/100
[2017-08-23 22:50] VITALS: BP 176/60
[2017-08-24 05:45] VITALS: BP 188/70
[2017-08-24 06:55] VITALS: BP 180/68
[2017-08-24 06:57] VITALS: BP 186/78
--- NOTE | 2017-08-24 09:29 | PN- Att Addend ---
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 Fingersticks now stable. Patient is being followed by endocrine. Being seen by social work for placement. Will continue current management.
[2017-08-24 09:58] VITALS: BP 166/60
--- NOTE | 2017-08-24 10:35 | PN- Housestaff ---
Subjective Follow-up For: Insulin induced hypoglycemia, bradycardia Tele-Events Since Last Visit: Sinus rhythm, 40s50s Subjective: No overnight events. Patient is complaining of some leg pain but otherwise has no complaints. Review of Systems Constitutional: Reports: no symptoms. EENTM: Reports: no symptoms. Cardiovascular: Reports: no symptoms. Respiratory: Reports: no symptoms. Gastrointestinal: Reports: no symptoms. Genitourinary: Reports: no symptoms. Musculoskeletal: Reports: see HPI. Skin: Reports: no symptoms. Neurological/Psychological: Reports: no symptoms. Hematologic/Endocrine: Reports: no symptoms. Immunologic/Allergic: Reports: no symptoms. Objective Last 24 Hrs of Vital Signs/I&O Vital Signs Date Time Temp Pulse Resp B/P B/P Pulse O2 O2 Flow FiO2 Mean Ox Delivery Rate 08/24 0958 54 18 166/60 96 Room Air 08/24 0800 Room Air 08/24 0657 51 186/78 08/24 0655 97.8 45 18 180/68 97 08/24 0552 54 188/70 08/24 0545 56 188/70 08/23 2303 Room Air 08/23 2250 54 176/60 08/23 2216 98.1 63 16 190/100 95 08/23 2107 52 198/76 08/23 1533 97.8 58 20 130/60 96 Intake & Output 08/24 1600 08/24 0800 08/24 0000 Intake Total 100 120 Output Total Balance 100 120 Intake, Oral 100 120 Patient 66.253 kg Weight Physical Exam General Appearance: Alert, Oriented X3, Cooperative, No Acute Distress Cardiovascular: Regular Rate, Normal S1, Normal S2 Lungs: Clear to Auscultation Abdomen: Normal Bowel Sounds Extremities: No Edema, Normal Pulses, No Tenderness/Swelling Current Medications: Current Medications Sig/Renee Start time Last Medication Dose Route Stop Time Status Admin Acetaminophen 325 MG Q4P PRN 08/20 1430 AC 08/23 PO 0803 Amlodipine Besylate 5 MG DAILY 08/24 09 AC 08/24 PO 0552 Apixaban 2.5 MG BID 08/19 2100 AC 08/24 PO 1003 Atorvastatin Calcium 80 MG 1700 08/20 1700 AC 08/23 PO 1733 Docusate Sodium 100 MG DAILY 08/21 1615 AC 08/24 PO 1003 Ferrous Sulfate 325 MG DAILY 08/20 09 AC 08/24 PO 1003 Lactobacillus 1 CAP DAILY 08/20 899 AC 08/24 Acidophilus PO 1003 Losartan Potassium 50 MG QPM 08/21 2100 AC 08/23 PO 2107 Multivitamins 1 TAB DAILY 08/20 899 AC 08/24 PO 1003 Nystatin 1 RU TID 08/22 0259 AC 08/24 TOP 0845 Omeprazole 40 MG DAILY AC 08/20 0700 AC 08/24 PO 0553 Ramelteon 8 MG AT BEDTIME 08/21 2215 AC 08/23 PO 2107 Sertraline HCl 50 MG DAILY 08/20 899 AC 08/24 PO 1003 Zinc Oxide 1 RU BID 08/22 899 AC 08/24 TOP 0845 Assessment/Plan Assessment: 86 year old woman with h/o paroxysmal Aflutter on Eliquis, HTN, ENEDINA, 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 On review of the previous records of her recent admissions, this seems like her baseline history of Type 2 diabetes not on any meds/Recurrent hypoglycemia in the setting of exogenous insulin elevated insulin levels of 181 on admission with low C-peptide levels 0.59 Endo on board, apprec recs q4 accuchecks, Her fingersticks have been 106-123 social work consulted Her fingersticks have been good overnight. Sinus bradycardia/Paroxysmal Aflutter/ fib on Eliquis no overnight tele events continue on tele floor continue home meds of eliquis and statin cardio consulted, may need to be reevaluated for pacemaker HTN Continue home meds of losartan and hold her Hydralazine for now Low Cassius score nutrition consulted, will see if she can benefit from tube feeds There is also some concern by the [facility] that patient has not been getting enough nutrition at home. continue Zoloft dvt ppx eliquis full code Problem List: 1. Bradycardia Pain Ratin Pain Location: no Pain Goal: Remain pain free Pain Plan: see a/p Tomorrow's Labs & Rationales: no
[2017-08-24 13:50] VITALS: BP 162/60
[2017-08-24 22:04] VITALS: BP 150/80
[2017-08-25 07:02] VITALS: BP 152/64
--- NOTE | 2017-08-25 08:04 | PN- Housestaff ---
Cristy Mathis 08/25/17 0803: Subjective Follow-up For: Confusion, lethargy, altered mentation Recurrent hypoglycemia in the setting of exogenous insulin (given elevated insulin levels) Type 2 diabetes not on any meds Sinus bradycardia Tele-Events Since Last Visit: Sinus bradycardia, 40s Subjective: Seen and examined patient this morning, she is answering questions in Upper Sor[place]. However she feels like she is at home and complains of overall generalized pain. Review of Systems Constitutional: Reports: see HPI. Objective Last 24 Hrs of Vital Signs/I&O Vital Signs Date Time Temp Pulse Resp B/P B/P Pulse O2 O2 Flow FiO2 Mean Ox Delivery Rate 08/25 0702 98.2 56 20 152/64 99 Room Air 08/25 0000 Room Air 08/24 2204 98.7 66 20 150/80 97 08/24 2109 53 150/80 08/24 1350 97.9 50 20 162/60 96 Intake & Output 08/25 1600 08/25 0800 08/25 0000 Intake Total 120 120 Output Total Balance 120 120 Intake, Oral 120 120 Patient 143 lb Weight Physical Exam General Appearance: Cooperative, No Acute Distress Cardiovascular: Normal S1, Normal S2 Lungs: Normal Air Movement Abdomen: Soft, No Tenderness Assessment/Plan Assessment: 86 year old woman with h/o paroxysmal Aflutter on Eliquis, HTN, ENEDINA, 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 CT abd/pelvis with contrast: small b/l pleural effusions, bibasilar atelectasis, pericardial effusion, large volume of stool in colon. Large uterine fibroid, no acute pathology. EKG: sinus bradycardia, first degree AV block with [place] interval of 236. No acute changes. Echo (2018): EF > 55%, minimal pericardial effusion. admitted to the telemetry floor for the following issues Confusion, lethargy, altered mentation Improved, she is alert, at times she answers question appropriately. On review of the previous records of her recent admissions, this seems like her baseline Recurrent hypoglycemia in the setting of exogenous insulin with past history significant for history of Type 2 diabetes not requiring any meds elevated insulin levels of 181 on admission with low C-peptide levels 0.59 Endo on board, apprec recs q4 accuchecks, Her fingersticks have been 106-123 social work on board Upon her discharge Adult Protective Services will need to be informed Sinus bradycardia/Paroxysmal Aflutter/ fib on Eliquis Continues to [place] to low 40s continue on tele floor continue home meds of eliquis and statin cardio on board appreciate recommendations HTN trending systolic 150s This weekend her blood pressure has been trending up, Continue home meds of losartan will continue her on norvasc 5mg daily Low Cassius score Awaiting nutrition input, will see if she can benefit from tube feeds There is also some concern by the [facility] that patient has not been getting enough nutrition at home. continue Zoloft dvt ppx eliquis full code Problem List: 1. S/P percutaneous endoscopic gastrostomy (PEG) tube placement 2. Hypertension 3. Hypoglycemia Pain Ratin Pain Location: na Pain Goal: Pain 4 or less Pain Plan: tylenol Tomorrow's Labs & Rationales: cbc/bep Ernesto Chairez 08/25/17 1126: Attending MD Review Statement Attending Statement Attending MD Statement: examined this patient, discuss w/resident/PA/MOBILE EQUIPMENT SERVICER, agreed w/resident/PA/MOBILE EQUIPMENT SERVICER, discussed with family, reviewed EMR data (avail), discussed with nursing, discussed with case mgmt, reviewed images, amended to note Attending Assessment/Plan: Had family meeting on friday afternoon. Cardiology and endocrinology appreciated. Home health aid present in family meeting. Encouraged to increase intake thru PEG if cannot toelrate PO. Patient is having asympomatic bradycardia. She is taking her meds. Her bp is uncontrolled and cardiology recommend norvasc and stop hydralaizine for now. SW follow up. Discharge planning with SW and window caser.
--- NOTE | 2017-08-25 10:31 | PN- Cardiology ---
Subjective Subjective: The patient is currently comfortable with no new complaints. No chest pain. No shortness of breath. No palpitations. The blood pressure has been uncontrolled. She has been in sinus bradycardia with heart rate in the 50s and high 40s. No definite symptoms attributable to bradycardia. Objective Vital Signs and I&Os Vital Signs Date Time Temp Pulse Resp B/P B/P Pulse O2 O2 Flow FiO2 Mean Ox Delivery Rate 08/25 701 98.2 56 20 152/64 99 Room Air 08/25 0000 Room Air 08/24 2204 98.7 66 20 150/80 97 08/24 2109 53 150/80 08/24 1350 97.9 50 20 162/60 96 Intake & Output 08/25 1600 08/25 0808/25 0000 08/24 1600 08/24 0000 Intake Total 120 120 380 100 120 Output Total Balance 120 120 380 100 120 Intake, IV 20 Intake, Oral 120 120 360 100 120 Patient 143 lb 146 lb Weight Physical Exam: Gen: NAD HEENT: normal Lungs: clear to auscultation, normal resp. effort Heart: RRR, S1, S2, 1/6 systolic murmur Abdomen: Soft, nontender, no masses Extremities: No clubbing, cyanosis, or edema. Neuro: Alert and oriented x 3, cranial nerves intact Current Medications: Current Medications Sig/Renee Start time Last Medication Dose Route Stop Time Status Admin Acetaminophen 500 MG Q6P PRN 08/25 1015 AC PO Acetaminophen 325 MG Q4P PRN 08/20 1430 AC 08/23 PO 0803 Amlodipine Besylate 5 MG DAILY 08/25 1030 AC PO Amlodipine Besylate 5 MG DAILY 08/24 899 DC 08/24 PO 0552 Apixaban 2.5 MG BID 08/19 2100 AC 08/25 PO 0930 Atorvastatin Calcium 80 MG 1700 08/20 1700 AC 08/24 PO 1642 Docusate Sodium 100 MG DAILY 08/21 1615 AC 08/25 PO 0930 Ferrous Sulfate 325 MG DAILY 08/20 899 AC 08/25 PO 0930 Hydralazine HCl 25 MG BID 08/25 899 DC PO Lactobacillus 1 CAP DAILY 08/20 899 AC 08/25 Acidophilus PO 0930 Losartan Potassium 50 MG QPM 08/21 2100 AC 08/24 PO 210 Multivitamins 1 TAB DAILY 08/20 899 AC 08/25 PO 0930 Nystatin 1 RU TID 08/22 0259 AC 08/25 TOP 0936 Omeprazole 40 MG DAILY AC 08/20 0700 AC 08/25 PO 0600 Ramelteon 8 MG AT BEDTIME 08/21 2215 AC 08/24 PO 2108 Sertraline HCl 50 MG DAILY 08/20 09 AC 08/25 PO 0930 Zinc Oxide 1 RU BID 08/22 09 AC 08/25 TOP 0935 Assessment/Plan Assessment/Plan Assessment: 1. Hypertension, not fully controlled on current medication 2. Sinus bradycardia 3. History of CVA Plan: * Amlodipine was given yesterday with good response. This may be preferable to hydralazine given its longer duration of action. I recommend starting amlodipine 5 mg daily * Continue other cardiac medications * No definite indication for pacemaker at this time. Would continue to monitor heart rate. Continue telemetry? Yes
--- NOTE | 2017-08-25 11:18 | Discharge Summary ---
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 Was admitted to [facility] for confusion and hypoglycemia of 38. Imaging of CXR: lungs clear. CT abd/ pelvis with contrast: small b/l pleural effusions, bibasilar atelectasis, pericardial effusion, large volume of stool in colon. Large uterine fibroid, no acute pathology. EKG: sinus bradycardia, first degree AV block with UT interval of 236. No acute changes. Echo (2018): EF > 55%, minimal pericardial effusion. Admitted to the telemetry floor and managed for the following issues: Confusion, lethargy, altered mentation Improved by day 2 of admission, was pleasantly confused during her course. She remained alert, at times she answers question appropriately. On review of the previous records of her recent admissions, this seems like her baseline. Mostly likely the worsening of her confusion and lethargy was secondary to her hypoglycemia. Recurrent hypoglycemia in the setting of exogenous insulin with past history significant for history of Type 2 diabetes not requiring any meds On this admission elevated insulin level of 181 with low C-peptide level of 0.59 was noted. In may 08, 2017 she was also admitted to [facility] for hypoglycemia in the setting of high insulin level (93.9) and low C-peptide level (0.49). This pattern confirms that patient had received exogenous insulin. Endocrine followed her through out her course and she never required and insulin and her fingersticks remained well controlled. Family meeting with daughter and patients was done to investigate about the exogenous adminstration of insulin. Per family present they denied that she had any exogenous. Upon her discharge Adult Protective Services was informed. Sinus bradycardia/Paroxysmal Aflutter/ fib on Eliquis During telemetery course she remained bradycardic with HR ranging from 40-50s. As she was unable to give much history it was difficult to assess if she was symptomatic from it. Continued on home meds of eliquis and statin. Hypertension As blood pressure was normotensive on admission she was will restarted her home meds of losartan and her Hydralazine was held. Her dosing of hydralazine was unclear as it seemed she was only taking 100mg daily. As her BP kept trending up, per cardiology recomendation we started 5mg of Norvasc daily for simplification. Low Zhen score Swallow eval was done 08/19/17 and Puree diet remains the most appropriate diet. For the most part of her course she only ate about 10% of the meals. Nutrition consulted and their recomendations were glucerna TID with meals Her home meds of Zoloft and feosol and prilosec was continued. US of thryoid showed Several bilateral subcentimeter sized thyroid nodules is seen. Annual screening follow-up assessment is recommended. dvt ppx eliquis full code Complications: SERVICE DATE: 08/28/17-999 EXAM TYPE: US - US-SOFT TISSUES OF HEAD & NECK FINDINGS: SIZE: Measurements of the thyroid lobes and nodules are given in sagittal, anteroposterior and transverse dimensions respectively. Right Thyroid Lobe: 1.6 cm transversely. The patient's head is tilted to the right side and the chin is tucked of the chest, not allowing visualization of the right lobe of the thyroid gland in the sagittal projection. Left Thyroid Lobe: 3.9 x 1.8 x 1.4 cm, volume 5.2 mL. Isthmus: 0.7 cm in maximum AP dimension. PARENCHYMA: The gland echotexture is mildly heterogeneous. Thyroid vascularity is normal. RIGHT THYROID LOBE: There are 3 nodules seen. 1: Location: Mid gland. Size: 0.3 x 0.2 cm. Nodule characteristics: Peripherally rim calcified with posterior shadowing, obscuring margins and assessment of vascular flow. 2: Location: Inferior. Size: 0.9 x 0.7 cm. Nodule characteristics: Heterogeneous. Smooth margins. Positive internal calcifications. Positive vascular flow. 3: Location: Inferior. Size: 0.5 x 0.7 cm. Nodule characteristics: Hypoechoic. Smooth margins. No calcifications. No vascular flow. ISTHMUS: No nodules. LEFT THYROID LOBE: There are 2 nodules seen. 1: Location: Mid gland. Size: 0.7 x 0.5 x 0.6 cm. Nodule characteristics: Hypoechoic. Smooth margins. No calcification. No vascular flow. 2: Location: Mid gland. Size: 0.4 x 0.3 x 0.3 cm. Nodule characteristics: Hypoechoic. Smooth margins. No calcification. Positive vascular flow. NODES: No lymphadenopathy is seen in the tissue surrounding the thyroid gland. IMPRESSION: Limited assessment, especially of the right lobe given difficulties with patient positioning. 1. Several bilateral subcentimeter sized thyroid nodules is seen. Annual screening follow-up assessment is recommended. 2. No suspicious dominant thyroid nodule/mass seen. CT ABD & PELVIS W IV CONTRAST; CT CHEST W IV CONTRAST FINDINGS: There is artifact from the patient's arms at the side. CT CHEST: Lungs: Bibasilar dependent atelectasis at the lung bases. Central bronchial airways are open. Mediastinum: No mediastinal mass or significant lymphadenopathy. There is a pericardial effusion measuring 2 cm transverse diameter. Pleura: There are small dependent bilateral pleural effusions. The volume of effusion is larger on the left than the right. Axilla: No lymphadenopathy. CT ABDOMEN AND PELVIS: LIVER, GALLBLADDER, AND BILIARY TREE: The liver is normal in size, shape, and attenuation. No focal hepatic lesion or biliary ductal dilatation is present. The gallbladder is unremarkable with no evidence of radiopaque gallstones, gallbladder wall thickening, or obvious pericholecystic inflammatory changes. PANCREAS: The pancreas is atrophic. No inflammation. No pancreatic calcification or pancreatic duct dilatation. SPLEEN: Spleen normal in size and contour. No focal lesion. ADRENAL GLANDS: Adrenal glands are normal in size. No focal mass. KIDNEYS AND URETERS: The kidneys are normal in size, shape, and attenuation. No hydronephrosis, hydroureter, or calculi seen. No perinephric stranding. There are bilateral renal cysts. The largest is a pedunculated cyst at the midpole of the left kidney measuring 2.5 cm. BLADDER: Unremarkable. GASTROINTESTINAL TRACT: There is a large volume of stool in the colon. The largest collection is at the rectum sigmoid extending the colon at the level the hips to a diameter of 6.7 cm. There is no bowel wall thickening however, and no edema surrounding the colon. There is diverticula of the colon but no diverticulitis. The appendix is not seen. There is no inflammation of the mesentery. The small bowel loops are normal. There is a percutaneous gastrotomy tube in place. MESENTERY: No focal inflammation. No free fluid. No free air. No mesenteric mass. ABDOMINAL WALL: No significant hernia is appreciated. LYMPH NODES: Normal. VASCULAR: Extensive vascular calcifications of the aorta and major branch vessels throughout the abdomen and pelvis. PELVIC VISCERA: There is a large uterine fibroid with a large coarse calcification with heterogeneous density of the uterus. OSSEOUS STRUCTURES: Degenerative spondylosis of the spine with disc height narrowing, endplate spurring and facet joint arthrosis. IMPRESSION: 1. Small dependent bilateral pleural effusions. Bibasilar dependent atelectasis at the lung bases. 2. Pericardial effusion. 3. Large volume of stool in colon. No evidence of acute change of bowel. There are diverticula of the colon but no diverticulitis. Percutaneous gastrotomy tube in place. 4. Large uterine fibroid. 5. No suspicious mass in the chest, abdomen or pelvis. Allergies: Coded Allergies: NO KNOWN ALLERGIES (05/29/15) Disposition Summary Disposition Principal Diagnosis: exogenous insulin administration Additional Diagnosis: Sinus bradycardia low zhen score =13 history of CVA s/p peg tube placement Dementia Discharge Disposition: home health services Discharge Instructions General Discharge Information Code Status: Full Code Patient's Diet: puree liquid diet glucerna TID with meals. Patient's Activity: as tolerated Follow-Up Instructions/Appts: follow-up with your primary care physician upon discharge does require any insulin or antidiabetic medications,ingersticks have been stable off them in the hospital follow-up with your general road production manager to assess the need for a pacemaker in the future discontinued to hydralazine and started on Norvasc daily for high blood pressure. Glucerna TID with meals. Medications at Discharge Discharge Medications: Stop taking the following medications: Furosemide (Lasix) 20 MG TABLET ORAL DAILY Qty = 3 Continue taking these medications: Losartan Potassium (Losartan Potassium) 50 MG TABLET 1 Tablet ORAL Every night Qty = 60 Comments: Last Taken:08/27/17 Time:9PM Atorvastatin Calcium (Atorvastatin Calcium) 80 MG TABLET 1 Tablet ORAL 5 PM Qty = 30 Comments: Last Taken:08/28/17 Time:4PM Ferrous Sulfate (IRON) 325 MG (65 MG IRON) TABLET 1 Tablet ORAL DAILY Comments: Last Taken:08/28/17 Time:9AM Pantoprazole Sodium (Pantoprazole Sodium) 40 MG TABLET.DR 1 Tablet ORAL DAILY Qty = 60 Comments: NOT GIVEN IN HOSPITAL OMEPRAZOLE GIVEN 08/28/17 @ 700 AM Sertraline HCl (Sertraline HCl) 25 MG TABLET 2 Tablet ORAL DAILY Qty = 30 Comments: Last Taken: 08/28/17 Time: 0900AM Multivitamin (Multivitamins) 1 EACH CAPSULE 1 Tablet ORAL DAILY Comments: Last Taken:08/28/17 Time:9AM Ergocalciferol (Vitamin D2) (Vitamin D2) 50,000 UNIT CAPSULE 1 Capsule ORAL EVERY FRIDAY Qty = 12 Comments: NOT GIVEN IN HOSPITAL Apixaban (Eliquis) 2.5 MG TABLET 1 Tablet ORAL TWICE DAILY Comments: Last Taken: 08/28/17 Time: 8AM Vitamin B Complex (Super B-50 Complex) 1 EACH CAPSULE 1 Capsule ORAL DAILY Comments: NOT GIVEN IN HOSPITAL Lactobacillus Acidophilus (Probiotic) 10 BILLION CELL CAPSULE 1 Capsule ORAL DAILY Comments: Last Taken:08/28/17 Time:9AM Acetaminophen (Acetaminophen) 325 MG TABLET 2 Tablet ORAL THREE TIMES DAILY Comments: Last Taken:08/27/17 Time:8AM Gabapentin (Gabapentin) 100 MG CAPSULE 1 Capsule ORAL DAILY Comments: NOT TAKEN Polyethylene Glycol 3350 (Miralax) 17 GRAM/DOSE POWDER 17 Gram ORAL DAILY Qty = 30 Instructions: pLEASE HOLD IF LOOSE STOOL Comments: Last Taken: 08/21/17 Time: 0900AM Sennosides/Docusate Sodium (Senna Plus Tablet) 8.6 MG-50 MG TABLET 2 Tablet ORAL DAILY Qty = 60 Instructions: PLEASE HOLD IF LOOSE STOOL Comments: Last Taken: 08/21/17 Time: 0900AM Start taking the following new medications: Amlodipine Besylate (Amlodipine Besylate) 5 MG TABLET 5 Milligram ORAL DAILY Qty = 30 No Refills Instructions: . Comments: Last Taken:08/28/17 Time:9AM Copies To: Delfina ARORA,Cristy Attending MD Review Statement Documenting Attending: Mihaela ARORA,Ernesto Other Findings: Patient seen/examined bedside. Awake, alert. Patient is having asympomatic bradycardia with afib on eliquis. Might benefit from pacemaker in future. Cardiology appreciated. Hypoglycemia on admission resolved. hypertension controlled now Transient Dysphagia Nutritional status prealbimin 19. USG thyorid no masses, subcentimeter nodules can follow up yearly assessment. dementia cont supportive care bed bound status from previous stroke. continue supprotive care, frequent repositoinig. SW follow up. Discharge planning with VIKKI and case manager specialist. daughter confirmed she will throw away any insulin at home leftover.
[2017-08-25 14:31] VITALS: BP 150/70
[2017-08-25 23:03] VITALS: BP 130/68
[2017-08-26 07:03] VITALS: BP 130/72
--- NOTE | 2017-08-26 07:33 | PN- Housestaff ---
Cristy Mathis 08/26/17 0733: Subjective Follow-up For: Confusion, lethargy, altered mentation Recurrent hypoglycemia in the setting of exogenous insulin (given elevated insulin levels) Type 2 diabetes not on any meds Sinus bradycardia Malnutrition Tele-Events Since Last Visit: Sinus heart rate 5558 overnight Subjective: Seen and examined patient. She seems to be more awake and answering a lot of questions in Bengali. Complaining of pain when swallowing. Per nursing staff she is eating less than yesterday approximately 10%. Review of Systems Constitutional: Reports: see HPI. Objective Last 24 Hrs of Vital Signs/I&O Vital Signs Date Time Temp Pulse Resp B/P B/P Pulse O2 O2 Flow FiO2 Mean Ox Delivery Rate 08/26 0703 98.1 60 20 130/72 98 Room Air 08/25 2303 98.6 63 19 130/68 96 08/25 2147 70 130/68 08/25 1431 98.1 58 20 150/70 98 Room Air Intake & Output 08/26 1600 08/26 0800 08/26 0000 Intake Total 60 Output Total Balance 60 Intake, Oral 60 Patient 145 lb Weight Physical Exam General Appearance: No Acute Distress HEENT: pt is unable to open her mouth properly for full examination Cardiovascular: Normal S1, Normal S2 Lungs: Normal Air Movement Abdomen: Normal Bowel Sounds, Soft, No Tenderness Extremities: No Edema Current Medications: Current Medications Sig/Renee Start time Last Medication Dose Route Stop Time Status Admin Acetaminophen 500 MG Q6P PRN 08/25 1015 AC 08/26 PO 1014 Acetaminophen 325 MG Q4P PRN 08/20 1430 AC 08/23 PO 0803 Amlodipine Besylate 5 MG DAILY 08/25 1030 AC 08/26 PO 0930 Apixaban 2.5 MG BID 08/19 2100 AC 08/26 PO 0929 Atorvastatin Calcium 80 MG 1700 08/20 1700 AC 08/25 PO 1759 Docusate Sodium 100 MG DAILY 08/21 1615 AC 08/26 PO 0928 Ferrous Sulfate 325 MG DAILY 08/20 899 AC 08/26 PO 0929 Lactobacillus 1 CAP DAILY 08/20 09 AC 08/26 Acidophilus PO 09 Losartan Potassium 50 MG QPM 08/21 2100 AC 08/25 PO 2147 Multivitamins 1 TAB DAILY 08/20 09 AC 08/26 PO 09 Nystatin 5 ML 4 TIMES/DAY 08/26 899 AC 08/26 PO 1231 Nystatin 1 RU TID 08/22 0259 AC 08/26 TOP 1231 Omeprazole 40 MG DAILY AC 08/20 07 AC 08/25 PO 0600 Phenol 2 SPRAY Q2P PRN 08/26 0830 AC EXT Ramelteon 8 MG AT BEDTIME 08/21 2215 AC 08/25 PO 2147 Sertraline HCl 50 MG DAILY 08/20 899 AC 08/26 PO 0929 Zinc Oxide 1 RU BID 08/22 09 AC 08/26 TOP 0935 Assessment/Plan Assessment: 86 year old woman with h/o paroxysmal Aflutter on Eliquis, HTN, ENEDINA, 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 CXR: lungs clear. CT abd/pelvis with contrast: small b/l pleural effusions, bibasilar atelectasis, pericardial effusion, large volume of stool in colon. Large uterine fibroid, no acute pathology. EKG: sinus bradycardia, first degree AV block with CO interval of 236. No acute changes. Echo (2018): EF > 55%, minimal pericardial effusion. Admitted to the telemetry floor for the following issues Confusion, lethargy, altered mentation Improved, she is alert, at times she answers question appropriately. On review of the previous records of her recent admissions, this seems like her baseline Recurrent hypoglycemia in the setting of exogenous insulin with past history significant for history of Type 2 diabetes not requiring any meds elevated insulin levels of 181 on admission with low C-peptide levels 0.59 Endo on board, apprec recs q4 accuchecks, Her fingersticks have been 106-123 social work on board Upon her discharge Adult Protective Services will need to be informed Sinus bradycardia/Paroxysmal Aflutter/ fib on Eliquis Continues to [place] to low 40s continue on tele floor continue home meds of eliquis and statin cardio on board appreciate recommendations HTN trending systolic 150s This weekend her blood pressure has been trending up, on losartan and norvasc 5mg daily Odynophagia We will start Chloraseptic [place] and nystatin swish and swallow Patient notes some improvement after this will continue to monitor We will repeat swallow eval Low Cassius score Nutrition on board There is also some concern by the [facility] that patient has not been getting enough nutrition at home. Prealbumin 19.8 continue Zoloft dvt ppx eliquis full code Awaiting home health services on-site evaluation prior to discharge Problem List: 1. Bradycardia 2. S/P percutaneous endoscopic gastrostomy (PEG) tube placement 3. Hypoglycemia Pain Ratin Pain Location: na Pain Goal: Pain 4 or less Pain Plan: current regimen Tomorrow's Labs & Rationales: none required Ernesto Chairez 08/26/17 1100: Attending MD Review Statement Attending Statement Attending MD Statement: examined this patient, discuss w/resident/PA/TRIGONOMETRY TEACHER, agreed w/resident/PA/TRIGONOMETRY TEACHER, discussed with family, reviewed EMR data (avail), discussed with nursing, discussed with case mgmt, reviewed images, amended to note Attending Assessment/Plan: Patient seen/examined bedside. Tolerating PO this am. Nutrition consult. Swish and swallow for throat. Had family meeting on friday. Cardiology and endocrinology appreciated. Home health aid present in family meeting. Patient is having asympomatic bradycardia. She is taking her meds. Her bp is better controlled and cardiology recommend norvasc which will continue. Encouraged to increase intake thru PEG if cannot toelrate PO. SW follow up. Discharge planning with SW and pillowcase folder. Discontinue telemetry if ok with cardiology. Update family.
--- NOTE | 2017-08-26 10:56 | Cons- Endocrinology ---
General Information and HPI Consulting Request Date of Consult: 08/26/17 Requested By: medical team Reason for Consult: hypoglycemia Source of Information: patient, old records Exam Limitations: language barrier Allergies/Medications Allergies: Coded Allergies: NO KNOWN ALLERGIES (05/29/15) Home Med List: Acetaminophen 325 MG TABLET 2 TAB PO TID PAIN (Reported) Apixaban (Eliquis) 2.5 MG TABLET 1 TAB PO BID BLOOD THINNR (Reported) Atorvastatin Calcium 80 MG TABLET 1 TAB PO 1700 HLD (Reported) Ergocalciferol (Vitamin D2) (Vitamin D2) 50,000 UNIT CAPSULE 1 CAP PO QFRI SUPPLEMENT (Reported) Ferrous Sulfate (IRON) 325 MG (65 MG IRON) TABLET 1 TAB PO DAILY SUPPLEMENT ( Reported) Furosemide (Lasix) 20 MG TABLET 1 TAB PO DAILY cardiac health FOLLOW WITH CXR AND PCP REGARDING CONTINUATION Gabapentin 100 MG CAPSULE 1 CAP PO DAILY NEUROPATHY (Reported) Hydralazine HCl 50 MG TABLET 100 MG PO DAILY HIGH BLOOD PRESSURE Lactobacillus Acidophilus (Probiotic) 10 BILLION CELL CAPSULE 1 CAP PO DAILY PROBIOTIC (Reported) Losartan Potassium 50 MG TABLET 1 TAB PO QPM HEART/BP (Reported) Multivitamin (Multivitamins) 1 EACH CAPSULE 1 TAB PO DAILY SUPPLEMENT ( Reported) Pantoprazole Sodium 40 MG TABLET.DR 1 TAB PO DAILY GI (Reported) Polyethylene Glycol 3350 (Miralax) 17 GRAM/DOSE POWDER 17 GM PO DAILY CONSTIPATION pLEASE HOLD IF LOOSE STOOL Sennosides/Docusate Sodium (Senna Plus Tablet) 8.6 MG-50 MG TABLET 2 TAB PO DAILY CONSTIPATION PLEASE HOLD IF LOOSE STOOL Sertraline HCl 25 MG TABLET 2 TAB PO DAILY MENTAL HEALTH (Reported) Vitamin B Complex (Super B-50 Complex) 1 EACH CAPSULE 1 CAP PO DAILY SUPPLEMENT (Reported) Past History Travel History Traveled to [place] past 21 day No Medical History Neurological: CVA, dementia EENT: cataracts, epistaxis Cardiovascular: AFIB, hypertension, hyperlipidemia, varicose veins Respiratory: pulmonary embolism (remote), pulmonary edema Gastrointestinal: constipation, ACID REFLUX Post PEG pandiverticulosis coli, L> R Hx colon adenoma Hepatic: NONE Renal: RIGHT RENAL ARTERY STENOSIS Musculoskeletal: chronic back pain, disk herniation, osteoarthritis, osteopenia Psychiatric: depression (post CVA) Endocrine: diabetes, obesity, vitamin D deficiency Blood Disorders: anemia Cancer(s): NONE 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 MOTHER (MVA). , Age 30-40; Cause: MVA (motor vehicle accident). FATHER, , Age 30-40; Cause: MVA (motor vehicle accident). Psychosocial History Where Do You Live? Home Who Do You Live With? spouse ( & dtr, Nhi Landaverde), child Services at Home: Home Health Aide, Nursing Primary Language: Lao, [place] Islander Smoking Status: Former Smoker Living Will? no Power of Airport Clerk/HCP? no Functional Ability ADLs Needs Assist: dressing, eating, toileting, bathing. Ambulation: non-ambulatory IADLs Needs Assist: shopping, housework, finances, food prep, telephone, transportation, medication admin. Assessment/Plan Consult Acknowledgment - Thank you for your consult request.
--- NOTE | 2017-08-26 11:00 | PN- Cardiology ---
Subjective Subjective: The patient is comfortable with no new complaints. Blood pressure is now under control. She continues to be in sinus bradycardia in the 50s and 40s on telemetry. No definite symptoms attributable to bradycardia. No chest pain. No palpitations. No shortness of breath. Objective Vital Signs and I&Os Vital Signs Date Time Temp Pulse Resp B/P B/P Pulse O2 O2 Flow FiO2 Mean Ox Delivery Rate 08/26 0703 98.1 60 20 130/72 98 Room Air 08/25 2303 98.6 63 19 130/68 96 08/25 2147 70 130/68 08/25 1431 98.1 58 20 150/70 98 Room Air 08/25 1108 43 174/80 Intake & Output 08/26 1600 08/26 0808/26 0000 08/25 1600 08/25 0000 Intake Total 60 236 120 120 Output Total Balance 60 236 120 120 Intake, Oral 60 236 120 120 Patient 145 lb 143 lb Weight Physical Exam: Gen: NAD HEENT: normal Lungs: clear to auscultation, normal resp. effort Heart: RRR, S1, S2, 1/6 systolic murmur Abdomen: Soft, nontender, no masses Extremities: No clubbing, cyanosis, or edema. Neuro: Alert and oriented x 3, cranial nerves intact Current Medications: Current Medications Sig/Renee Start time Last Medication Dose Route Stop Time Status Admin Acetaminophen 500 MG Q6P PRN 08/25 1015 AC 08/26 PO 1014 Acetaminophen 325 MG Q4P PRN 08/20 1430 AC 08/23 PO 0803 Amlodipine Besylate 5 MG DAILY 08/25 1030 AC 08/26 PO 0930 Apixaban 2.5 MG BID 08/19 2100 AC 08/26 PO 0929 Atorvastatin Calcium 80 MG 1700 08/20 1700 AC 08/25 PO 1759 Docusate Sodium 100 MG DAILY 08/21 1615 AC 08/26 PO 0928 Ferrous Sulfate 325 MG DAILY 08/20 09 AC 08/26 PO 0929 Lactobacillus 1 CAP DAILY 08/20 899 AC 08/26 Acidophilus PO 09 Losartan Potassium 50 MG QPM 08/21 2100 AC 08/25 PO 2147 Multivitamins 1 TAB DAILY 08/20 899 AC 08/26 PO 0929 Nystatin 5 ML 4 TIMES/DAY 08/26 899 AC 08/26 PO 0937 Nystatin 1 RU TID 08/22 0259 AC 08/26 TOP 0938 Omeprazole 40 MG DAILY AC 08/20 0700 AC 08/25 PO 0600 Phenol 2 SPRAY Q2P PRN 08/26 0830 AC EXT Ramelteon 8 MG AT BEDTIME 08/21 2215 AC 08/25 PO 2147 Sertraline HCl 50 MG DAILY 08/20 899 AC 08/26 PO 0929 Zinc Oxide 1 RU BID 08/22 899 AC 08/26 TOP 0935 Assessment/Plan Assessment/Plan Assessment: 1. Hypertension, not fully controlled on current medication 2. Sinus bradycardia 3. History of CVA Plan: * Continue current hypertension medications * The patient continues to have sinus bradycardia intermittently in the 40s, but no definite symptoms. In the absence of symptomatic bradycardia, there is no absolute indication for pacemaker at this time, however pacemaker could be considered at some point. * The patient is planned for discharge soon. * Would recommend continuing to monitor on telemetry if possible while she is in the hospital to provide additional information on whether a pacemaker would be beneficial. Continue telemetry? Yes
[2017-08-26 14:00] VITALS: BP 150/60
[2017-08-26 22:20] VITALS: BP 130/64
[2017-08-27 07:07] VITALS: BP 144/54
--- NOTE | 2017-08-27 08:47 | PN- Housestaff ---
Cristy Mathis 08/27/17 0847: Subjective Follow-up For: Confusion, lethargy, altered mentation Recurrent hypoglycemia in the setting of exogenous insulin (given elevated insulin levels) Type 2 diabetes not on any meds Sinus bradycardia Malnutrition Tele-Events Since Last Visit: Sinus heart rate 4058 overnight Subjective: Seen and examined patient this morning. She is much more awake and alert and answering sessions appropriately. Her throat pain has improved after the Chloraseptic and a statin swish and swallow. Review of Systems Constitutional: Denies: see HPI. Objective Last 24 Hrs of Vital Signs/I&O Vital Signs Date Time Temp Pulse Resp B/P B/P Pulse O2 O2 Flow FiO2 Mean Ox Delivery Rate 08/27 0838 51 144/54 08/27 0707 97.9 43 12 144/54 97 Room Air 08/26 2220 98.6 63 12 130/64 98 Room Air 08/26 2019 59 166/56 08/26 1400 97.8 60 20 150/60 97 Room Air Intake & Output 08/27 1600 08/27 0800 08/27 0000 Intake Total 120 120 Output Total Balance 120 120 Intake, Oral 120 120 Patient 144 lb Weight Weight Bed scale Measurement Method Physical Exam General Appearance: Cooperative, No Acute Distress Cardiovascular: Regular Rate, Normal S1, Normal S2 Lungs: Normal Air Movement Abdomen: Soft, No Tenderness Extremities: No Edema Current Medications: Current Medications Sig/Renee Start time Last Medication Dose Route Stop Time Status Admin Acetaminophen 500 MG Q6P PRN 08/25 1015 AC 08/27 PO 0837 Acetaminophen 325 MG Q4P PRN 08/20 1430 AC 08/23 PO 0803 Amlodipine Besylate 5 MG DAILY 08/25 1030 AC 08/27 PO 0838 Apixaban 2.5 MG BID 08/19 2100 AC 08/27 PO 0838 Atorvastatin Calcium 80 MG 1700 08/20 1700 AC 08/26 PO 1759 Docusate Sodium 100 MG DAILY 08/21 1615 AC 08/27 PO 0837 Ferrous Sulfate 325 MG DAILY 08/20 899 AC 08/27 PO 0838 Lactobacillus 1 CAP DAILY 08/20 09 AC 08/27 Acidophilus PO 0839 Losartan Potassium 50 MG QPM 08/21 2100 AC 08/26 PO 2019 Multivitamins 1 TAB DAILY 08/20 09 AC 08/27 PO 0839 Nystatin 5 ML 4 TIMES/DAY 08/26 09 AC 08/27 PO 0839 Nystatin 1 RU TID 08/22 0259 AC 08/27 TOP 0840 Omeprazole 40 MG DAILY AC 08/20 07 AC 08/27 PO 0615 Patient Medication 1 ED ONE ONE 08/26 1630 DC Teaching ED 08/26 1631 Phenol 2 SPRAY Q2P PRN 08/26 0830 AC 08/27 EXT 0839 Ramelteon 8 MG AT BEDTIME 08/21 2215 AC 08/26 PO 2017 Sertraline HCl 50 MG DAILY 08/20 09 AC 08/27 PO 0839 Zinc Oxide 1 RU BID 08/22 09 AC 08/27 TOP 0840 Assessment/Plan Assessment: 86 year old woman with h/o paroxysmal Aflutter on Eliquis, HTN, ENEDINA, 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 CXR: lungs clear. CT abd/pelvis with contrast: small b/l pleural effusions, bibasilar atelectasis, pericardial effusion, large volume of stool in colon. Large uterine fibroid, no acute pathology. EKG: sinus bradycardia, first degree AV block with [place] interval of 236. No acute changes. Echo (2018): EF > 55%, minimal pericardial effusion. Admitted to the telemetry floor for the following issues Confusion, lethargy, altered mentation Improved, she is alert, at times she answers question appropriately. On review of the previous records of her recent admissions, this seems like her baseline Recurrent hypoglycemia in the setting of exogenous insulin with past history significant for history of Type 2 diabetes not requiring any meds elevated insulin levels of 181 on admission with low C-peptide levels 0.59 Endo on board, apprec recs q4 accuchecks, Her fingersticks have been 106-123 social work on board-Adult Protective Services notified We will reach out to family to make sure that all insulin in the house is disposed of. social work on board. Sinus bradycardia/Paroxysmal Aflutter/ fib on Eliquis Continues to [place] to low 40s continue on tele floor continue home meds of eliquis and statin cardio on board appreciate recommendations Per cardio no absolute indication for pacemaker at this time, however pacemaker could be considered at some point. HTN trending systolic 140s on losartan and norvasc 5mg daily for better compliance and hydralazine has been discontinued on this admission Odynophagia Continue Chloraseptic [place] and nystatin swish and swallow Low Cassius score Nutrition on board There is also some concern by the [facility] that patient has not been getting enough nutrition at home. Prealbumin 19.8 continue Zoloft dvt ppx eliquis full code Problem List: 1. Atrial fibrillation 2. Chest pain 3. Bradycardia Pain Ratin Pain Location: na Pain Goal: Pain 4 or less Pain Plan: current regimen Tomorrow's Labs & Rationales: None required Ernesto Chairez 08/27/17 1325: Attending MD Review Statement Attending Statement Attending MD Statement: examined this patient, discuss w/resident/PA/ANGLE FURNACEMAN, agreed w/resident/PA/ANGLE FURNACEMAN, discussed with family, reviewed EMR data (avail), discussed with nursing, discussed with case mgmt, reviewed images, amended to note Attending Assessment/Plan: Patient seen/examined bedside. Tolerating PO this am. Awake, alert. Frequent repositioning. Patient is having asympomatic bradycardia. She is taking her meds. Her bp is better controlled and cardiology recommend norvasc which will continue. Might benefit from pacemkaer in future. Hypoglycemia on admission resolved. Discontinued frequent accuchecks hypertension controlled now dementia cont supportive care bed bound status from previous stroke. continue supprotive care, frequent repositoinig. SW follow up. Discharge planning with SW and case technician. Update family.
[2017-08-27] MEDS ORDERED: AMLODIPINE BESYL5 M1 PO (09:24)
--- NOTE | 2017-08-27 09:26 | Patient Discharge Instructions ---
Discharge Instructions General Discharge Information You were seen/treated for: Low heart rate Hypoglycemia in the setting of exogenous insulin administration Special Instructions: Please follow-up with your primary care physician upon discharge You will not require any insulin or antidiabetic medications as your fingersticks have been stable off them in the hospital Please follow-up with your shingle sawyer to assess the need for a pacemaker in the future We have discontinued to your hydralazine and started you on Norvasc daily for high blood pressure. Glucerna TID with meals. Diet Continue normal diet: No Recommended Diet: puree Acute Coronary Syndrome Inclusion Criteria At DC or during hospital stay patient has or had the following: ACS DIAGNOSIS No Discharge Core Measures Meds if any: Prescribed or Continued at Discharge Meds if any: NOT Prescribed or Continued at Discharge Congestive Heart Failure Inclusion Criteria At DC or during hospital stay patient has or had the following: CHF DIAGNOSIS No Discharge Core Measures Meds if any: Prescribed or Continued at Discharge Meds if any: NOT Prescribed or Continued at Discharge Cerebrovascular accident Inclusion Criteria At DC or during hospital stay patient has or had the following: CVA/TIA Diagnosis No Discharge Core Measures Meds if any: Prescribed or Continued at Discharge Meds if any: NOT Prescribed or Continued at Discharge Venous thromboembolism Inclusion Criteria VTE Diagnosis No VTE Type NONE VTE Confirmed by (Test) NONE Discharge Core Measures - Per Current guidelines, there needs to be overlap - treatment for the first 5 days of Warfarin therapy. - If discharged on Warfarin prior to 5 days of - overlap therapy, the patient will need to be - assessed for post discharge needs including - *Post discharge parental anticoagulation - *Warfarin and/or parental anticoagulation education - *Follow up date to check INR post discharge At least 5 days overlap therapy as Inpatient No Meds if any: Prescribed or Continued at Discharge Note: Overlap Therapy is Warfarin and Anticoagulant Meds if any: NOT Prescribed or Continued at Discharge
[2017-08-27 14:00] VITALS: BP 142/50
[2017-08-27 22:00] VITALS: BP 148/60
[2017-08-28 06:10] VITALS: BP 120/60
--- NOTE | 2017-08-28 07:15 | PN- Housestaff ---
MeekpeterCristy 08/28/17 0714: Subjective Follow-up For: Confusion, lethargy, altered mentation Recurrent hypoglycemia in the setting of exogenous insulin (given elevated insulin levels) Type 2 diabetes not on any meds Sinus bradycardia Malnutrition Subjective: Seen and examined patient this morning. Offers no complaints. Review of Systems Constitutional: Denies: see HPI. Objective Last 24 Hrs of Vital Signs/I&O Vital Signs Date Time Temp Pulse Resp B/P B/P Pulse O2 O2 Flow FiO2 Mean Ox Delivery Rate 08/28 0811 63 120/60 08/28 0610 97.6 63 16 120/60 95 08/27 2255 98.8 51 16 96 Room Air 08/27 2200 148/60 08/27 2146 54 148/60 08/27 1400 97.8 60 20 142/50 98 08/27 0838 51 144/54 Intake & Output 08/28 1600 08/28 0800 08/28 0000 Intake Total 60 100 Output Total Balance 60 100 Intake, Oral 60 100 Patient 104 lb Weight Weight Bed scale Measurement Method Physical Exam General Appearance: Cooperative, No Acute Distress Cardiovascular: Normal S1, Normal S2 Lungs: Normal Air Movement Abdomen: Normal Bowel Sounds, Soft, No Tenderness Current Medications: Current Medications Sig/Renee Start time Last Medication Dose Route Stop Time Status Admin Acetaminophen 500 MG Q6P PRN 08/25 1015 AC 08/27 PO 0837 Acetaminophen 325 MG Q4P PRN 08/20 1430 AC 08/23 PO 0803 Amlodipine Besylate 5 MG DAILY 08/25 1030 AC 08/28 PO 0811 Apixaban 2.5 MG BID 08/19 2100 AC 08/28 PO 0810 Atorvastatin Calcium 80 MG 1700 08/20 1700 AC 08/27 PO 1740 Docusate Sodium 100 MG DAILY 08/21 1615 AC 08/28 PO 0810 Ferrous Sulfate 325 MG DAILY 08/20 09 AC 08/28 PO 0810 Lactobacillus 1 CAP DAILY 08/20 09 AC 08/28 Acidophilus PO 0811 Losartan Potassium 50 MG QPM 08/21 2100 AC 08/27 PO 2146 Multivitamins 1 TAB DAILY 08/20 899 AC 08/28 PO 0811 Nystatin 5 ML 4 TIMES/DAY 08/26 09 AC 08/27 PO 2147 Nystatin 1 RU TID 08/22 0259 AC 08/28 TOP 0820 Omeprazole 40 MG DAILY AC 08/20 0700 AC 08/28 PO 0547 Phenol 2 SPRAY Q2P PRN 08/26 0830 AC 08/27 EXT 1741 Ramelteon 8 MG AT BEDTIME 08/21 2215 AC 08/27 PO 2144 Sertraline HCl 50 MG DAILY 08/20 0900 AC 08/28 PO 0811 Zinc Oxide 1 RU BID 08/22 09 AC 08/28 TOP 0820 Assessment/Plan Assessment: 86 year old woman with h/o paroxysmal Aflutter on Eliquis, HTN, ENEDINA, 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 CXR: lungs clear. CT abd/pelvis with contrast: small b/l pleural effusions, bibasilar atelectasis, pericardial effusion, large volume of stool in colon. Large uterine fibroid, no acute pathology. EKG: sinus bradycardia, first degree AV block with [place] interval of 236. No acute changes. Echo (2018): EF > 55%, minimal pericardial effusion. Admitted to the telemetry floor for the following issues: Confusion, lethargy, altered mentation Improved, she is alert, at times she answers question appropriately. On review of the previous records of her recent admissions, this seems like her baseline Recurrent hypoglycemia in the setting of exogenous insulin with past history significant for history of Type 2 diabetes not requiring any meds elevated insulin levels of 181 on admission with low C-peptide levels 0.59 Endo on board, apprec recs q4 accuchecks, Her fingersticks have been 106-123 social work on board. as previously mentioned Adult protective service has NOT been notified. We will be notifying them after her discharge. Daughter brought in the remaining insulin from the house and gave it to attending Dr. Chairez and myself and they were given to nursing staff to dispose of appropriately. Sinus bradycardia/Paroxysmal Aflutter/ fib on Eliquis Continues to [place] to low 40s continue on tele floor continue home meds of eliquis and statin cardio on board appreciate recommendations Per cardio no absolute indication for pacemaker at this time, however pacemaker could be considered at some point. HTN well controlled on losartan and norvasc 5mg daily for better compliance and hydralazine has been discontinued on this admission Odynophagia Continue Chloraseptic [place] and nystatin swish and swallow Low Cassius score Nutrition on board repeat swallow eval showed no changes, she can be continued with puree liq diet with Glucerna TID to meet her caloric needs. Prealbumin 19.8 continue Zoloft dvt ppx eliquis full code Discharge home today with [facility] Problem List: 1. Atrial fibrillation 2. Bradycardia 3. S/P percutaneous endoscopic gastrostomy (PEG) tube placement Pain Ratin Pain Location: na Pain Goal: Pain 4 or less Pain Plan: none required Tomorrow's Labs & Rationales: none required Ernesto Chairez 08/28/17 1129: Attending MD Review Statement Attending Statement Attending MD Statement: examined this patient, discuss w/resident/PA/RESIDENT CARE COORDINATOR, agreed w/resident/PA/RESIDENT CARE COORDINATOR, discussed with family, reviewed EMR data (avail), discussed with nursing, discussed with case mgmt, reviewed images, amended to note Attending Assessment/Plan: Patient seen/examined bedside. Awake, alert. Frequent repositioning. c/o throat and difficulty swallwoing. Poor historian. Patient is having asympomatic bradycardia with afib on eliquis. Might benefit from pacemaker in future. Cardiology appreciated. Hypoglycemia on admission resolved. hypertension controlled now Transient Dysphagia Nutritional status prealbimin 19. Repeat speech/swallow. f/u USG neck dementia cont supportive care bed bound status from previous stroke. continue supprotive care, frequent repositoinig. SW follow up. Discharge planning with SW and director of casework services. Yesterday daughter confirmed she will throw away any insulin at home leftover. Yesterday daughter confirmed she will throw away any insulin at home leftover.
--- NOTE | 2017-08-28 11:08 | ULTRASOUND REPORT ---
EXAMINATION: US THYROID CLINICAL INFORMATION: Neck swelling. Presumptive diagnosis of thyroid nodules. COMPARISON: None TECHNIQUE: Linear transducer frias-scale and color Doppler examination with attention to the region of the thyroid. FINDINGS: SIZE: Measurements of the thyroid lobes and nodules are given in sagittal, anteroposterior and transverse dimensions respectively. Right Thyroid Lobe: 1.6 cm transversely. The patient's head is tilted to the right side and the chin is tucked of the chest, not allowing visualization of the right lobe of the thyroid gland in the sagittal projection. Left Thyroid Lobe: 3.9 x 1.8 x 1.4 cm, volume 5.2 mL. Isthmus: 0.7 cm in maximum AP dimension. PARENCHYMA: The gland echotexture is mildly heterogeneous. Thyroid vascularity is normal. RIGHT THYROID LOBE: There are 3 nodules seen. 1: Location: Mid gland. Size: 0.3 x 0.2 cm. Nodule characteristics: Peripherally rim calcified with posterior shadowing, obscuring margins and assessment of vascular flow. 2: Location: Inferior. Size: 0.9 x 0.7 cm. Nodule characteristics: Heterogeneous. Smooth margins. Positive internal calcifications. Positive vascular flow. 3: Location: Inferior. Size: 0.5 x 0.7 cm. Nodule characteristics: Hypoechoic. Smooth margins. No calcifications. No vascular flow. ISTHMUS: No nodules. LEFT THYROID LOBE: There are 2 nodules seen. 1: Location: Mid gland. Size: 0.7 x 0.5 x 0.6 cm. Nodule characteristics: Hypoechoic. Smooth margins. No calcification. No vascular flow. 2: Location: Mid gland. Size: 0.4 x 0.3 x 0.3 cm. Nodule characteristics: Hypoechoic. Smooth margins. No calcification. Positive vascular flow. NODES: No lymphadenopathy is seen in the tissue surrounding the thyroid gland. IMPRESSION: Limited assessment, especially of the right lobe given difficulties with patient positioning. 1. Several bilateral subcentimeter sized thyroid nodules is seen. Annual screening follow-up assessment is recommended. 2. No suspicious dominant thyroid nodule/mass seen.
[2017-08-28 14:00] VITALS: BP 140/80
[2017-08-28] MEDS ORDERED: AMLODIPINE BESYL5 M1 PO (15:57)
--- NOTE | 2017-08-28 16:14 | PN- Cardiology ---
Objective Vital Signs and I&Os Vital Signs Date Time Temp Pulse Resp B/P B/P Pulse O2 O2 Flow FiO2 Mean Ox Delivery Rate 08/28 1400 98.0 94 20 140/80 93 08/28 0811 63 120/60 08/28 0610 97.6 63 16 120/60 95 08/27 2255 98.8 51 16 96 Room Air 08/27 2200 148/60 08/27 2146 54 148/60 Intake & Output 08/28 1600 08/28 0800 08/28 0000 08/27 1600 08/27 0800 08/27 0000 Intake Total 420 60 100 450 120 120 Output Total Balance 420 60 100 450 120 120 Intake, Oral 420 60 100 450 120 120 Patient 104 lb 144 lb Weight Weight Bed scale Bed scale Measurement Method Current Medications: Current Medications Sig/Renee Start time Last Medication Dose Route Stop Time Status Admin Acetaminophen 500 MG Q6P PRN 08/25 1015 AC 08/27 PO 0837 Acetaminophen 325 MG Q4P PRN 08/20 1430 AC 08/23 PO 0803 Amlodipine Besylate 5 MG DAILY 08/25 1030 AC 08/28 PO 0811 Apixaban 2.5 MG BID 08/19 2100 AC 08/28 PO 0810 Atorvastatin Calcium 80 MG 1700 08/20 1700 AC 08/27 PO 1740 Docusate Sodium 100 MG DAILY 08/21 1615 AC 08/28 PO 0810 Ferrous Sulfate 325 MG DAILY 08/20 09 AC 08/28 PO 0810 Lactobacillus 1 CAP DAILY 08/20 09 AC 08/28 Acidophilus PO 0811 Losartan Potassium 50 MG QPM /07 2100 AC 08/27 PO 2146 Multivitamins 1 TAB DAILY 08/20 09 AC 08/28 PO 0811 Nystatin 5 ML 4 TIMES/DAY 08/26 09 AC 08/27 PO 2147 Nystatin 1 RU TID 08/22 0259 AC 08/28 TOP 1400 Omeprazole 40 MG DAILY AC 08/20 07 AC 08/28 PO 0547 Phenol 2 SPRAY Q2P PRN 08/26 0830 AC 08/27 EXT 1741 Ramelteon 8 MG AT BEDTIME 08/21 2215 AC 08/27 PO 2144 Sertraline HCl 50 MG DAILY 08/20 09 AC 08/28 PO 0811 Zinc Oxide 1 RU BID 08/22 0900 AC 08/28 TOP 0820 Assessment/Plan Assessment/Plan Assessment: 1. 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 HTN 3. Mental status changes with symptomatic hypoglycemia 4. Anemia 5. History of prior CVA Recommendatons:
[2017-08-28] MEDS ORDERED: HYDRALAZINE HC100 M1 PO (17:50)
== END 2017-08-28 19:55 | disposition home health service (06) | DRG 918 ==
LOC: ERH 13:36 → 1NO 19:39 → ERHI 19:39 → ENRESERV 20:31 → ERHI 21:03 → ENTRNSPT 22:14 → EDTRNSPT 22:24 → EDTRNSPTSTS 22:24 → 1NO 22:36 → CMPTRNSPT 22:39 → 1NO 08-20 07:55
PROVIDERS: Internal Medicine Cardiovascular Disease; Physician Assistant Medical
DX: T38.3X4A Poisoning by insulin and oral hypoglycemic [antidiabetic] drugs, undetermined, initial encounter (principal); I69.354 Hemiplegia and hemiparesis following cerebral infarction affecting left non-dominant side; E46 Unspecified protein-calorie malnutrition; E11.649 Type 2 diabetes mellitus with hypoglycemia without coma; R00.1 Bradycardia, unspecified; I10 Essential (primary) hypertension; Z93.1 Gastrostomy status; F03.90 Unspecified dementia, unspecified severity, without behavioral disturbance, psychotic disturbance, mood disturbance, and anxiety; Z79.01 Long term (current) use of anticoagulants; E78.5 Hyperlipidemia, unspecified; K21.9 Gastro-esophageal reflux disease without esophagitis; E66.9 Obesity, unspecified; Z68.26 Body mass index [BMI] 26.0-26.9, adult; I48.0 Paroxysmal atrial fibrillation; R41.82 Altered mental status, unspecified; I45.9 Conduction disorder, unspecified; D64.9 Anemia, unspecified; Y92.009 Unspecified place in unspecified non-institutional (private) residence as the place of occurrence of the external cause; I48.91 Unspecified atrial fibrillation; Z86.711 Personal history of pulmonary embolism; K59.00 Constipation, unspecified; M54.89 Other dorsalgia; M85.80 Other specified disorders of bone density and structure, unspecified site; E55.9 Vitamin D deficiency, unspecified
CPT/HCPCS: 1NSP; 84206; 36592; 71045; 74177; 81003; 82436; 83525; 87040; 87086; 93005; 93010; 96374; J3490; J7042

== ENCOUNTER 2017-08-30 18:31 | Inpatient (IN) | payer OTHER, MEDICARE ==
[~2017-08-30] VITALS: Ht 154.9 cm; Wt 68.1 kg
[~2017-08-30 18:31] MED LIST changes: +AMLODIPINE BESYL5 M1 PO; +HYDRALAZINE HC100 M1 PO
--- NOTE | 2017-08-30 19:12 | ED AMS/SEIZURE/WEAK/DIZZY ---
History of Present Illness General Chief Complaint: General Adult Stated Complaint: "UNRESPONSIVE" Source: family, old records Exam Limitations: clinical condition Vital Signs & Intake/Output Vital Signs & Intake/Output Vital Signs Date Time Temp Pulse Resp B/P B/P Pulse O2 O2 Flow FiO2 Mean Ox Delivery Rate 08/31 0157 97.0 43 16 160/72 99 Nasal 3.0L Cannula 08/31 0037 96.8 47 18 151/71 100 Nasal 3.0L Cannula 08/30 2330 97.0 47 18 181/92 98 Nasal 3.0L Cannula 08/30 2233 95.1 45 18 140/63 99 Nasal 3.0L Cannula 08/30 2145 44 18 144/80 99 Nasal 3.0L Cannula 08/30 2039 97.3 48 18 120/55 99 Nasal 3.0L Cannula 08/30 1930 47 18 140/82 99 Nasal 3.0L Cannula 08/30 1834 94.6 48 18 141/62 98 Nasal 4.0L Cannula ED Intake and Output 08/31 0000 08/30 1200 Intake Total 800 Output Total Balance 800 Intake, IV 800 Allergies Coded Allergies: NO KNOWN ALLERGIES (05/29/15) Reconcile Medications Acetaminophen 325 MG TABLET 2 TAB PO TID PAIN (Reported) Amlodipine Besylate 5 MG TABLET 5 MG PO DAILY hypertension . Apixaban (Eliquis) 2.5 MG TABLET 1 TAB PO BID BLOOD THINNR (Reported) Atorvastatin Calcium 80 MG TABLET 1 TAB PO 1700 HLD (Reported) Ergocalciferol (Vitamin D2) (Vitamin D2) 50,000 UNIT CAPSULE 1 CAP PO QFRI SUPPLEMENT (Reported) Ferrous Sulfate (IRON) 325 MG (65 MG IRON) TABLET 1 TAB PO DAILY SUPPLEMENT ( Reported) Gabapentin 100 MG CAPSULE 1 CAP PO DAILY NEUROPATHY (Reported) Lactobacillus Acidophilus (Probiotic) 10 BILLION CELL CAPSULE 1 CAP PO DAILY PROBIOTIC (Reported) Losartan Potassium 50 MG TABLET 1 TAB PO QPM HEART/BP (Reported) Multivitamin (Multivitamins) 1 EACH CAPSULE 1 TAB PO DAILY SUPPLEMENT ( Reported) Pantoprazole Sodium 40 MG TABLET.DR 1 TAB PO DAILY GI (Reported) Polyethylene Glycol 3350 (Miralax) 17 GRAM/DOSE POWDER 17 GM PO DAILY CONSTIPATION pLEASE HOLD IF LOOSE STOOL Sennosides/Docusate Sodium (Senna Plus Tablet) 8.6 MG-50 MG TABLET 2 TAB PO DAILY CONSTIPATION PLEASE HOLD IF LOOSE STOOL Sertraline HCl 25 MG TABLET 2 TAB PO DAILY MENTAL HEALTH (Reported) Vitamin B Complex (Super B-50 Complex) 1 EACH CAPSULE 1 CAP PO DAILY SUPPLEMENT (Reported) Triage Note: BIBA UNRESPONSIVE FEMALE HYPOTENSIVE Triage Nurses Notes Reviewed? 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 Patient's daughter provides HPI as patient is currently obtunded. Daughter states that the patient was recently discharged from the hospital 2 days ago. Daughter states that patient has been very sleepy since she was discharged,. Talks at all. Daughter states that today patient was sleeping all day and when she tried to wake the patient up she could not, patient was unresponsive. They checked the blood pressure and she was found to be hypotensive. In route EMS checked blood pressure which was 80s/50s. Daugther notes that patient has been on new BP med since discharge, norvasc. (Lisa HUGHES,Lisa Burger) Past History Travel History Traveled to [place] past 21 day No Medical History Any Pertinent Medical History? 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 MOTHER (MVA). , Age 30-40; Cause: MVA (motor vehicle accident). FATHER, , Age 30-40; Cause: MVA (motor vehicle accident). Hx Contributory? No (Lisa Merlos) Review of Systems Review of Systems Constitutional: Reports: see HPI. EENTM: Reports: no symptoms. Respiratory: Reports: no symptoms. Cardiovascular: Reports: see HPI. GI: Reports: no symptoms. Genitourinary: Reports: no symptoms. Musculoskeletal: Reports: no symptoms. Skin: Reports: no symptoms. Neurological/Psychological: Reports: see HPI. Hematologic/Endocrine: Reports: no symptoms. Immunologic/Allergic: Reports: no symptoms. All Other Systems: Reviewed and Negative (Lisa Merlos) Physical Exam Physical Exam General Appearance: obtunded Head: atraumatic, normal appearance Eyes: Bilateral: PERRL, other (pinpoint pupils). Neck: normal inspection Respiratory: no respiratory distress Cardiovascular: normal peripheral pulses, bradycardia Peripheral Pulses: 2+ femoral (R), 2+ femoral (L) Gastrointestinal: soft, non-tender Neurologic/Psych: obtunded, winces to painful stimuli Skin: intact, normal color, warm/dry Core Measures ACS in differential dx? Yes CVA/TIA Diagnosis No Sepsis Present: No Sepsis Focused Exam Completed? No (Lisa Merlos) Progress Differential Diagnosis: arrythmia, alcohol intoxication, anemia, CVA/stroke, dehydration, drug intoxication, encephalitis, electrolyte imbalance, hypoglycemia, hypoxia, intracranial Hem., intracranial mass/tumor, pneumonia, sepsis, seizure disorder, subarachnoid Hem., UTI/pyelo, munchausens by proxy Plan of Care: Orders Procedure Date/time Status Consistent Carbohydrate 2 08/31 B Active Pathway - chart 08/31 0044 Active Patient Data 08/31 0044 Active Code Status 08/31 0044 Active House Staff 08/31 UNK Active VTE Mechanical Prophylaxis 08/31 UNK Active Vital Signs 08/31 UNK Active Telemetry/Mc Kay Stitcher 08/31 UNK Active Intake & Output 08/[address] in observation 08/30 2344 Active Patient Data 08/30 2316 Active OXYGEN SETUP (GEN) 08/30 2303 Active Saline Lock 08/30 2303 Active Vital Signs 08/30 2303 Active Activity/Ambulation 08/30 2303 Active Code Status 08/30 2303 Complete CULTURE,URINE 08/30 1909 Active BLOOD CULTURE 08/30 1909 Active URINE DRUG SCREEN FOR ER ONLY 08/30 1909 Complete URINALYSIS 08/30 1909 Complete Arredondo, Insertion/Removal/Asses 08/30 190 Active Intake & Output 08/30 190 Active BLOOD CULTURE 08/30 1850 Active TROPONIN LEVEL 08/30 1850 Complete PARTIAL THROMBOPLASTIN TIME 08/30 1850 Complete PROTHROMBIN TIME 08/30 185 Complete LACTIC ACID 08/30 1850 Complete COMPREHENSIVE METABOLIC PANEL 08/30 1850 Complete CBC WITHOUT DIFFERENTIAL 08/30 1850 Complete EKG 08/30 184 Active Current Medications Sig/Renee Start time Last Medication Dose Stop Time Status Admin Enoxaparin Sodium 30 MG DAILY 08/31 0900 AC (Lovenox) Sodium Chloride 1,000 ML Q10H 08/30 2245 AC 08/31 (Normal Saline 0.9%) 08/31 0844 0102 Laboratory Tests 08/30/172150: Lactic Acid Cancelled 08/30/171944: Urine Opiates Screen 265, Methadone Screen < 40, Barbiturate Screen < 60, Ur Phencyclidine Scrn < 6.00, Amphetamines Screen < 100, U Benzodiazepines Scrn 96, Urine Cocaine Screen < 50, Urine Cannabis Screen < 5.00, Urine Color YEL, Urine Clarity TURBD H, Urine pH 8.5 H, Ur Specific [place] 1.010, Urine Protein 100 H, Urine Ketones NEG, Urine Nitrite NEG, Urine Bilirubin NEG, Urine Urobilinogen 0.2, Ur Leukocyte Esterase LARGE H, Ur Microscopic SEDIMENT EXAMINED, Urine RBC 1-3, Urine WBC 10-15 H, Ur Epithelial Cells FEW, Urine Bacteria PACKD H, Urine Hemoglobin TRACE-INTACT, Urine Glucose NEG 08/30/17 1820: Anion Gap 7, Estimated GFR 52 L, BUN/Creatinine Ratio 31.0 H, Glucose 91, Lactic Acid 0.5 L, Calcium 8.6, Total Bilirubin 0.5, AST 22, ALT 23, Alkaline Phosphatase 104, Troponin I < 0.01, Total Protein 5.3 L, Albumin 2.8 L, Globulin 2.5, Albumin/Globulin Ratio 1.1, PT 15.5 H, INR 1.42 H, APTT 30, CBC w Diff NO MAN DIFF REQ, RBC 3.11 L, MCV 92.9, MCH 31.3 H, MCHC 33.7, RDW 13.8, MPV 11.0 H, Gran % 58.9, Lymphocytes % 30.7, Monocytes % 6.9, Eosinophils % 3.1 , Basophils % 0.4, Absolute Granulocytes 4.2, Absolute Lymphocytes 2.2, Absolute Monocytes 0.5, Absolute Eosinophils 0.2, Absolute Basophils 0 Microbiology 08/31 1999 BLOOD: Blood Culture - RECD 08/30 1944 URINE ROUT: Urine Culture - RECD 08/30 182 BLOOD: Blood Culture - RECD Spoke with radiologist regarding this patient - multiple lytic lesions to hands and forearms, may be consistent with multiple myeloma, recommend oncology follow -up, the patient's family member was made aware. Patient's vital signs are stable bradycardia with patient has a history of. Patient is afebrile, no hypoxia. Head and abdomen CT imaging showed no acute abnormality. Patient's labs are stable. Given patient's altered mental status she requires hospital stay for further evaluation. Will initiate observation. Spoke with Dr. Amaya regarding telemetry observation. Dr. Cueva agrees with this plan. Diagnostic Imaging: Viewed by Me: Radiology Read, CT Scan. Discussed w/RAD: Radiology Read, CT Scan. Radiology Impression: PATIENT: CHAMP COBIAN PRESENT AGE: 86 PATIENT ACCOUNT NO: [id number] : 29 LOCATION: [facility] ORDERING PHYSICIAN: Lisa HUGHES SERVICE DATE: 08/30/17 EXAM TYPE: CAT - CT HEAD WO IV CONTRAST EXAMINATION: CT HEAD noncontrast study CLINICAL INFORMATION: Rule out intracranial bleed COMPARISON: Multiple prior CTs most recent June 2017 TECHNIQUE: Computer axial tomographic sections performed at 2.5 mm thin section DLP: 624 mGy-cm FINDINGS: CEREBRAL HEMISPHERES: There is no evidence of intra-axial or extra-axial mass, hemorrhage or acute infarct. An old infarct in the RIGHT parietal lobe evident by encephalomalacia, this has not changed. BRAIN PARENCHYMA: Deep white matter and paraventricular hypoattenuation , nonspecific; however, in this patient's age group most likely changes secondary to chronic ischemia/microvascular angiopathy. SUBDURAL SPACE: No bleed. BASAL GANGLIA AND PINEAL GLAND: Unremarkable VENTRICLES: The ventricles are symmetrically enlarged compatible with patient's atrophy. CEREBELLUM AND BRAINSTEM: No space-occupying mass, hemorrhage or acute infarct. CEREBELLOPONTINE ANGLES: No lesion found. ORBITS: No intraorbital mass. VESSELS: Unremarkable SKULL BASE: Unremarkable INCLUDED SINUSES AT SKULL BASE: Clear SKULL AND SKIN: No fracture or bone lesion found. IMPRESSION: Exam essentially unchanged, old infarct with encephalomalacia in the RIGHT parietal lobe unchanged, Deep white matter and periventricular hypoattenuation, nonspecific; however, in this patient's age group most likely sequela of chronic microvascular angiopathy ischemia. DICTATED BY: Marisabel Larson MD DATE/TIME DICTATED:08/30/172005 CHOCOLATE REFINING ROLLER:ZOHREH DATE/TIME TRANSCRIBED:2005 CONFIDENTIAL, DO NOT COPY WITHOUT APPROPRIATE AUTHORIZATION. < Electronically signed in Other Vendor System> SIGNED BY: Neo ARORA, Hadeer 08/30/172015, PATIENT: CHAMP COBIAN PRESENT AGE: 86 PATIENT ACCOUNT NO: [id number] : 29 LOCATION: [facility] ORDERING PHYSICIAN: Lisa HUGHES SERVICE DATE: 08/30/17 EXAM TYPE: CAT - CT ABD & PELVIS W/O IV CONTRAS Addendum: Discussed with Jennyfer Gonzalez at 8:25 PM . Addendum Signed by: Eduardo Ramirez MD 08/30/172021 EXAMINATION: CT ABDOMEN AND PELVIS WITHOUT CONTRAST CLINICAL INFORMATION: Nonresponsive. Recent gastric tube placement. COMPARISON: CT abdomen and pelvis dated 07/12/2017. TECHNIQUE: Multidetector volumetric imaging was performed from the superior aspect of the liver through the pubic symphysis. Sagittal and coronal reformatted images were obtained on the technologist's workstation. DLP: 641 mGy-cm FINDINGS: LUNG BASES: There are trace bilateral pleural effusions with streaky bibasilar dependent consolidation/atelectasis. Moderate cardiomegaly is noted with a stable moderate pericardial effusion. LIVER, GALLBLADDER, AND BILIARY TREE: A few punctate parenchymal calcifications are again noted within the liver. The gallbladder is unremarkable with no evidence of radiopaque gallstones, gallbladder wall thickening, or obvious pericholecystic inflammatory changes. PANCREAS: Unremarkable. SPLEEN: Unremarkable. ADRENAL GLANDS: Unremarkable. KIDNEYS AND URETERS: There are bilateral renal cysts. There are punctate calcifications near the renal iza that are favored to be vascular. No hydronephrosis or perinephric stranding. BLADDER: The bladder is decompressed with a Arredondo catheter. GASTROINTESTINAL TRACT: A percutaneous gastrostomy tube is noted with its tip in the distal body of the stomach. The balloon is inflated within the gastric lumen along the anterior wall of the stomach. No small bowel dilatation. There is a moderate volume of stool in the rectum with mild rectal wall thickening and stranding of the presacral fat. No focal right lower quadrant inflammatory stranding. ABDOMINAL WALL: No significant hernia is appreciated. LYMPH NODES: Normal. VASCULAR: There is diffuse atherosclerotic vascular calcification. No abdominal aortic aneurysm. PELVIC VISCERA: Coarsely calcified uterine fibroids are noted. A large noncalcified uterine fibroid extends into the right lower quadrant of the abdomen, unchanged. OSSEOUS STRUCTURES: Mild multilevel degenerative changes are noted in the spine with degenerative grade 1 anterolisthesis of L4 on L5. Though not as apparent within the axial skeleton, there is suggestion of innumerable tiny lytic bone lesions in the visualized forearms and hands which are included within the scan volume. IMPRESSION: 1. Appropriately placed percutaneous gastrostomy tube with its tip within the stomach and the balloon pulled back against the anterior wall of the stomach. 2. Though not as apparent within the axial skeleton, there is suggestion of innumerable tiny lytic bone lesions with endosteal scalloping in the visualized forearms and hands which are included within the scan volume. Clinical correlation for multiple myeloma is recommended. 3. Moderate volume of stool within the rectum with mild rectal wall thickening and stranding in the presacral fat compatible with mild stercoral colitis. 4. Trace bilateral pleural effusions with moderate cardiomegaly and a moderate sized pericardial effusion. 5. Diffuse atherosclerotic vascular calcification without abdominal aortic aneurysm This result was called by the [facility] to the ordering provider at 8:20 PM on 08/30/2017. DICTATED BY: Eduardo Ramirez MD DATE/TIME DICTATED:08/30/172005 CHOCOLATE REFINING ROLLER:ZOHREH DATE/TIME TRANSCRIBED:08/30/172005 CONFIDENTIAL, DO NOT COPY WITHOUT APPROPRIATE AUTHORIZATION. <Electronically signed in Other Vendor System> SIGNED BY: Eduardo Ramirez MD 08/30/172026 CXR Impression: PATIENT: CHAMP COBIAN PRESENT AGE: 86 PATIENT ACCOUNT NO: [id number] : 29 LOCATION: [facility] ORDERING PHYSICIAN: Jovany Padilla MD SERVICE DATE: 08/30/17 EXAM TYPE: RAD - XRY-PORTABLE CHEST XRAY EXAMINATION: XR PORTABLE CHEST CLINICAL INFORMATION: Unresponsive COMPARISON: 08/19/2017 TECHNIQUE: Portable frontal view of the chest was obtained. FINDINGS: Heart remains enlarged, LEFT hemidiaphragm is partially obscured probably by overlapping soft tissue of the breast, cannot rule out underlying mild infiltrates. There is increased interstitial lung markings unchanged. No large effusion or pneumothorax. IMPRESSION: No significant change as above. DICTATED BY: Marisabel Larson MD DATE/TIME DICTATED:08/30/171999 CHOCOLATE REFINING ROLLER:ZOHREH DATE/TIME TRANSCRIBED:08/30/171999 CONFIDENTIAL, DO NOT COPY WITHOUT APPROPRIATE AUTHORIZATION. <Electronically signed in Other Vendor System> SIGNED BY: Marisabel Larson MD 08/30/172004 Initial ED EKG: SINUS BRADYCARDIA @44BPM, FIRST DEGREE AV BLOCK, NONSPECIFIC ST CHANGES Prior EKG: unchanged (08/21/17) (Lisa Merlos) Departure Departure Disposition: STILL A PATIENT Condition: Stable Clinical Impression Primary Impression: Bradycardia Secondary Impressions: Altered mental status Qualifiers: Altered mental status type: unspecified Qualified Code: R41.82 - Altered mental status, unspecified Referrals: Patient Has No Primary Care Dr (PCP/Family) Departure Forms: Customer Survey General Discharge Information Observation Note [facility]: [facility] Advisor Notified: JOVANY MIGUEL DO Place Patient In: Non-ED OBS Care Area Rationale for Observation: My rational for observation is as follows [patient is obtunded, stable bradycardia requiring telemetry monitoring, frequent neuro checks, repeat labs, possible IV abx for UTI, premature discharge medically unsafe]. (Lisa Merlos) PA/TICKETING CLERK Co-Sign Statement Statement: ED Attending supervision documentation- x I saw and evaluated the patient. I have also reviewed all the pertinent lab results and diagnostic results. I agree with the findings and the plan of care as documented in the PA's/TICKETING CLERK's documentation. Lethargy and decreased responsiveness with no current identifiable etiology. [] I have reviewed the ED Record and agree with the PA's/TICKETING CLERK's documentation. [] Additions or exceptions (if any) to the PAs/TICKETING CLERK's note and plan are summarized below: [] (Swetha ARORAGiuseppe) Critical Care Note Critical Care Note Critical Care Time: 30-74 min (Lisa HUGHES,Lisa Burger)
[2017-08-30 19:13] LABS: ABSOLUTE BASOPHIL COUNT 0 /CUMM (0.0-0.2); ABSOLUTE EOSINOPHIL COUNT 0.2 /CUMM (0.0-0.7); ABSOLUTE GRANULOCYTE CT 4.2 /CUMM (1.4-6.5); ABSOLUTE LYMPH COUNT 2.2 /CUMM (1.2-3.4); ABSOLUTE MONOCYTE COUNT 0.5 /CUMM (0.10-0.60); BASOPHIL % 0.4 % (0.0-2.0); EOSINOPHIL % 3.1 % (0-5); GRANULOCYTE % 58.9 % (42.2-75.2); HEMATOCRIT 28.9 % (37-47); MEAN CORPUSCULAR HGB 31.3 PG (27.0-31.0); MEAN CORPUSCULAR HGB CONC 33.7 G/DL (33.0-37.0); MEAN CORPUSCULAR VOLUME 92.9 FL (81.0-99.0); PLATELET COUNT 145 /CUMM (130-400); RBC DISTRIBUTION WIDTH 13.8 % (11.5-14.5); RED BLOOD CELL CT 3.11 /CUMM (4.20-5.40); WHITE BLOOD CELL COUNT 7.1 /CUMM (4.8-10.8)
[2017-08-30 19:18] LABS: PT 15.5 SEC (9.4-12.5); PTT 30 SEC (25-37)
--- NOTE | 2017-08-30 20:05 | RADIOLOGY REPORT ---
EXAMINATION: XR PORTABLE CHEST CLINICAL INFORMATION: Unresponsive COMPARISON: 08/19/2017 TECHNIQUE: Portable frontal view of the chest was obtained. FINDINGS: Heart remains enlarged, LEFT hemidiaphragm is partially obscured probably by overlapping soft tissue of the breast, cannot rule out underlying mild infiltrates. There is increased interstitial lung markings unchanged. No large effusion or pneumothorax. IMPRESSION: No significant change as above.
--- NOTE | 2017-08-30 20:16 | CT SCAN REPORT ---
EXAMINATION: CT HEAD noncontrast study CLINICAL INFORMATION: Rule out intracranial bleed COMPARISON: Multiple prior CTs most recent June 2017 TECHNIQUE: Computer axial tomographic sections performed at 2.5 mm thin section DLP: 624 mGy-cm FINDINGS: CEREBRAL HEMISPHERES: There is no evidence of intra-axial or extra-axial mass, hemorrhage or acute infarct. An old infarct in the RIGHT parietal lobe evident by encephalomalacia, this has not changed. BRAIN PARENCHYMA: Deep white matter and paraventricular hypoattenuation, nonspecific; however, in this patient's age group most likely changes secondary to chronic ischemia/microvascular angiopathy. SUBDURAL SPACE: No bleed. BASAL GANGLIA AND PINEAL GLAND: Unremarkable VENTRICLES: The ventricles are symmetrically enlarged compatible with patient's atrophy. CEREBELLUM AND BRAINSTEM: No space-occupying mass, hemorrhage or acute infarct. CEREBELLOPONTINE ANGLES: No lesion found. ORBITS: No intraorbital mass. VESSELS: Unremarkable SKULL BASE: Unremarkable INCLUDED SINUSES AT SKULL BASE: Clear SKULL AND SKIN: No fracture or bone lesion found. IMPRESSION: Exam essentially unchanged, old infarct with encephalomalacia in the RIGHT parietal lobe unchanged, Deep white matter and periventricular hypoattenuation, nonspecific; however, in this patient's age group most likely sequela of chronic microvascular angiopathy ischemia.
--- NOTE | 2017-08-30 20:27 | CT SCAN REPORT ---
EXAMINATION: CT ABDOMEN AND PELVIS WITHOUT CONTRAST CLINICAL INFORMATION: Nonresponsive. Recent gastric tube placement. COMPARISON: CT abdomen and pelvis dated 07/12/2017. TECHNIQUE: Multidetector volumetric imaging was performed from the superior aspect of the liver through the pubic symphysis. Sagittal and coronal reformatted images were obtained on the technologist's workstation. DLP: 641 mGy-cm FINDINGS: LUNG BASES: There are trace bilateral pleural effusions with streaky bibasilar dependent consolidation/atelectasis. Moderate cardiomegaly is noted with a stable moderate pericardial effusion. LIVER, GALLBLADDER, AND BILIARY TREE: A few punctate parenchymal calcifications are again noted within the liver. The gallbladder is unremarkable with no evidence of radiopaque gallstones, gallbladder wall thickening, or obvious pericholecystic inflammatory changes. PANCREAS: Unremarkable. SPLEEN: Unremarkable. ADRENAL GLANDS: Unremarkable. KIDNEYS AND URETERS: There are bilateral renal cysts. There are punctate calcifications near the renal iza that are favored to be vascular. No hydronephrosis or perinephric stranding. BLADDER: The bladder is decompressed with a Arredondo catheter. GASTROINTESTINAL TRACT: A percutaneous gastrostomy tube is noted with its tip in the distal body of the stomach. The balloon is inflated within the gastric lumen along the anterior wall of the stomach. No small bowel dilatation. There is a moderate volume of stool in the rectum with mild rectal wall thickening and stranding of the presacral fat. No focal right lower quadrant inflammatory stranding. ABDOMINAL WALL: No significant hernia is appreciated. LYMPH NODES: Normal. VASCULAR: There is diffuse atherosclerotic vascular calcification. No abdominal aortic aneurysm. PELVIC VISCERA: Coarsely calcified uterine fibroids are noted. A large noncalcified uterine fibroid extends into the right lower quadrant of the abdomen, unchanged. OSSEOUS STRUCTURES: Mild multilevel degenerative changes are noted in the spine with degenerative grade 1 anterolisthesis of L4 on L5. Though not as apparent within the axial skeleton, there is suggestion of innumerable tiny lytic bone lesions in the visualized forearms and hands which are included within the scan volume. IMPRESSION: 1. Appropriately placed percutaneous gastrostomy tube with its tip within the stomach and the balloon pulled back against the anterior wall of the stomach. 2. Though not as apparent within the axial skeleton, there is suggestion of innumerable tiny lytic bone lesions with endosteal scalloping in the visualized forearms and hands which are included within the scan volume. Clinical correlation for multiple myeloma is recommended. 3. Moderate volume of stool within the rectum with mild rectal wall thickening and stranding in the presacral fat compatible with mild stercoral colitis. 4. Trace bilateral pleural effusions with moderate cardiomegaly and a moderate sized pericardial effusion. 5. Diffuse atherosclerotic vascular calcification without abdominal aortic aneurysm This result was called by the [facility] to the ordering provider at 8:20 PM on 08/30/2017.
--- NOTE | 2017-08-30 22:36 | History & Physical ---
Opal Carbajal MD,[facility] 08/30/17 9974: General Information and HPI MD Statement: I have seen and personally examined CHAMP LANDAVERDE and documented this H&P. The patient is a 86 year old F who presented with a patient stated chief complaint of [UNRESPONSIVENESS]. 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 Patients daughter was present at the bedside and providing the history. She was relatively irritable during the interview when asked regarding the PMH adn previous admission (please refere to the end of the note regarding interview details). Patient was discharged 2 days ago from after management of confusion/AMS ( which was considered to be her baseline dementia related) and recurrent hypoglycemia (increased Insulin and low C pep, exogenous insulin likely, care givers denied, family discarded all the insulin at home, Adult Protective Services informed), bradcardia with HR of 40-50. His BP medications were also she was normotensive at the time initially and BP started to increase later during the admission and we resumed BP medications, hydralazin, started neurovasc. Patient was discharged on Puree diet supplemeted with Glucerna TID with meals. After discharge patient was relatively alert and oriented at home, requested burger from [facility], she was partially orieted but was able to recognize people around him. Yesterday she was more drowsy, slept the whole day and only woke up to eat, but arousable and still had good po intake. Today patient was unreponsive, BP was checked and was 80/? and patient was transfered to ED. During the last 2 days at home her blood sugar was 100-160 mg/dl. She noted patient had some backpain that she gave tynelol and did massage. Patients daughter specifically did not want to talk about the previous admission when patient was found hypoglycemic and had again AMS, she noted " they made such big deal out of it" and noted "leave it the way it is". She also noted she was not happy with [facility] as several members of her family (grandson, father and herself) were misdiagnosed and did not recieve proper treatment, and the only reason she brought her mom here was that has the records from previous admission. During the interview Dr Hayes, my resident and I tried to faciliate the conversation with asking open ended questions while trying further assess adress her convcerns. She noted she does want to do everything for her mother, unless there is no treatment and take care of she being uncounsious. She noted her son is a oncology researcher at [employer] and she wanted to do all the evaluations for Multiple myeloma which were incidentally revealed in imaging. Patient's daughter also had strong beliefe that a lot of the current complications could related to interaction between amlodipine and lipitor, as she read about them and are toxic. Allergies/Medications Allergies: Coded Allergies: NO KNOWN ALLERGIES (05/29/15) Home Med list Acetaminophen 325 MG TABLET 2 TAB PO TID PAIN (Reported) Amlodipine Besylate 5 MG TABLET 5 MG PO DAILY hypertension . Apixaban (Eliquis) 2.5 MG TABLET 1 TAB PO BID BLOOD THINNR (Reported) Atorvastatin Calcium 80 MG TABLET 1 TAB PO 1700 HLD (Reported) Ergocalciferol (Vitamin D2) (Vitamin D2) 50,000 UNIT CAPSULE 1 CAP PO QFRI SUPPLEMENT (Reported) Ferrous Sulfate (IRON) 325 MG (65 MG IRON) TABLET 1 TAB PO DAILY SUPPLEMENT ( Reported) Gabapentin 100 MG CAPSULE 1 CAP PO DAILY NEUROPATHY (Reported) Lactobacillus Acidophilus (Probiotic) 10 BILLION CELL CAPSULE 1 CAP PO DAILY PROBIOTIC (Reported) Losartan Potassium 50 MG TABLET 1 TAB PO QPM HEART/BP (Reported) Multivitamin (Multivitamins) 1 EACH CAPSULE 1 TAB PO DAILY SUPPLEMENT ( Reported) Pantoprazole Sodium 40 MG TABLET.DR 1 TAB PO DAILY GI (Reported) Polyethylene Glycol 3350 (Miralax) 17 GRAM/DOSE POWDER 17 GM PO DAILY CONSTIPATION pLEASE HOLD IF LOOSE STOOL Sennosides/Docusate Sodium (Senna Plus Tablet) 8.6 MG-50 MG TABLET 2 TAB PO DAILY CONSTIPATION PLEASE HOLD IF LOOSE STOOL Sertraline HCl 25 MG TABLET 2 TAB PO DAILY MENTAL HEALTH (Reported) Vitamin B Complex (Super B-50 Complex) 1 EACH CAPSULE 1 CAP PO DAILY SUPPLEMENT (Reported) Past History Travel History Traveled to [place] past 21 day No Medical History Neurological: CVA, dementia EENT: cataracts, epistaxis Cardiovascular: AFIB, hypertension, hyperlipidemia, varicose veins Respiratory: pulmonary embolism (remote), pulmonary edema Gastrointestinal: constipation, ACID REFLUX Post PEG pandiverticulosis coli, L> R Hx colon adenoma Hepatic: NONE Renal: RIGHT RENAL ARTERY STENOSIS Musculoskeletal: chronic back pain, disk herniation, osteoarthritis, osteopenia Psychiatric: depression (post CVA) Endocrine: diabetes, obesity, vitamin D deficiency Blood Disorders: anemia Cancer(s): NONE 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 MOTHER (MVA). , Age 30-40; Cause: MVA (motor vehicle accident). FATHER, , Age 30-40; Cause: MVA (motor vehicle accident). Psychosocial History Who Do You Live With? spouse ( & dtr, Nhi Landaverde), child Services at Home: Home Health Aide, Nursing Primary Language: Turkish, Georgian Living Will? no Power of Seasonal Recruiter/HCP? no Functional Ability ADLs Needs Assist: dressing, eating, toileting, bathing. Ambulation: non-ambulatory IADLs Needs Assist: shopping, housework, finances, food prep, telephone, transportation, medication admin. Review of Systems Review of Systems Constitutional: Reports: see HPI. Exam & Diagnostic Data Last 24 Hrs of Vital Signs/I&O Vital Signs Date Time Temp Pulse Resp B/P B/P Pulse O2 O2 Flow FiO2 Mean Ox Delivery Rate 08/303 95.1 45 18 140/63 99 Nasal 3.0L Cannula 08/30 2145 44 18 144/80 99 Nasal 3.0L Cannula 08/309 97.3 48 18 120/55 99 Nasal 3.0L Cannula 08/30 1930 47 18 140/82 99 Nasal 3.0L Cannula 08/30 1834 94.6 48 18 141/62 98 Nasal 4.0L Cannula Intake & Output 08/31 0800 08/31 0000 08/30 1600 Intake Total 800 Output Total Balance 800 Intake, IV 800 Physical Exam General Appearance No Acute Distress, barely opened eyes in response to repeated painfull stimuli, physical exam limited due to patient mental condition Skin No Significant Lesion Skin Temp/Moisture Exam: Warm/Dry Sepsis Skin Exam (color): Normal for Ethnicity HEENT Atraumatic, pupils small sized, minimal reactive to light Cardiovascular Normal S1, Normal S2 Lungs Normal Air Movement Neurological not copperative Extremities No Edema Last 24 Hrs of Labs/Klaus: Laboratory Tests 08/30/172150: Lactic Acid Cancelled 08/30/171944: Urine Opiates Screen 265, Methadone Screen < 40, Barbiturate Screen < 60, Ur Phencyclidine Scrn < 6.00, Amphetamines Screen < 100, U Benzodiazepines Scrn 96, Urine Cocaine Screen < 50, Urine Cannabis Screen < 5.00, Urine Color YEL, Urine Clarity TURBD H, Urine pH 8.5 H, Ur Specific Colbert 1.010, Urine Protein 100 H, Urine Ketones NEG, Urine Nitrite NEG, Urine Bilirubin NEG, Urine Urobilinogen 0.2, Ur Leukocyte Esterase LARGE H, Ur Microscopic SEDIMENT EXAMINED, Urine RBC 1-3, Urine WBC 10-15 H, Ur Epithelial Cells FEW, Urine Bacteria PACKD H, Urine Hemoglobin TRACE-INTACT, Urine Glucose NEG 08/30/171819: Anion Gap 7, Estimated GFR 52 L, BUN/Creatinine Ratio 31.0 H, Glucose 91, Lactic Acid 0.5 L, Calcium 8.6, Total Bilirubin 0.5, AST 22, ALT 23, Alkaline Phosphatase 104, Troponin I < 0.01, Total Protein 5.3 L, Albumin 2.8 L, Globulin 2.5, Albumin/Globulin Ratio 1.1, PT 15.5 H, INR 1.42 H, APTT 30, CBC w Diff NO MAN DIFF REQ, RBC 3.11 L, MCV 92.9, MCH 31.3 H, MCHC 33.7, RDW 13.8, MPV 11.0 H, Gran % 58.9, Lymphocytes % 30.7, Monocytes % 6.9, Eosinophils % 3.1 , Basophils % 0.4, Absolute Granulocytes 4.2, Absolute Lymphocytes 2.2, Absolute Monocytes 0.5, Absolute Eosinophils 0.2, Absolute Basophils 0 Microbiology 08/31 1999 BLOOD: Blood Culture - RECD 08/30 1944 URINE ROUT: Urine Culture - RECD 08/31 1819 BLOOD: Blood Culture - RECD Assessment/Plan Assessment: Patient is 86 y F with presented to ED for evaluation of being unresponsive and having low BP BP low at home discharged 2 days ago after hypoglycemia related to most likely exogen insuline use PMH of paroxysmal Aflutter on Eliquis, HTN, ENEDINA, 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 s/p G-tube now able to tolerate some PO, baseline dementia, recurrent hypoglycemic episodes, history of DM no longer requiring treatment VS, Ph Ex at admission: BP 141/62, MN 48, no fever, saturating on 3 L nasal cannula Labs at admission: hgB 9.7, mcv 92, wbc 7.1 inr 1.4 BEP insignificant, Alb 2.8 UA: LE large, WBC 10-15 Utox: opoid 200 (called lab, is considered positive) Imagings at admission: head CT: Exam essentially unchanged, old infarct with encephalomalacia in the RIGHT parietal lobe unchanged, Deep white matter and periventricular hypoattenuation, nonspecific; however, in this patient's age group most likely sequela of chronic microvascular angiopathy ischemia. CXR: No significant change as above. Abd CT: 1. Appropriately placed percutaneous gastrostomy tube with its tip within the stomach and the balloon pulled back against the anterior wall of the stomach. 2. Though not as apparent within the axial skeleton, there is suggestion of innumerable tiny lytic bone lesions with endosteal scalloping in the visualized forearms and hands which are included within the scan volume. Clinical correlation for multiple myeloma is recommended. 3. Moderate volume of stool within the rectum with mild rectal wall thickening and stranding in the presacral fat compatible with mild stercoral colitis. 4. Trace bilateral pleural effusions with moderate cardiomegaly and a moderate sized pericardial effusion. 5. Diffuse atherosclerotic vascular calcification without abdominal aortic aneurysm in the ED patient was administered 2 doses of 0.4 Narcon, patient became more responsive after 5-7 minutes, was able to open eyes to her name and was able to answer that she is in hospital and say her first name. Patient was admitted to telemetry floor for management of following conditions: AMS Relative response to Narcon Active UA Low BP reported at home, not in ED incidental lytic findings in CT scan - admit to tele - BP and monitor tech - IV fluids gentle - Antibiotics, Ceftriaxone, patient non symptomatic but AMS could be related - hem-onc consult per family request as they want everytihng to be done, no other sign/lab work suggesting MM - continue home medication - hold Gabapentin and other narcotics FC DVT PPX: alps and phramacological heart healthy, puree, PEG tube in place, patient was eating regular food As Ranked By This Provider Problem List: 1. Altered mental status Core Measures/Misc (12/01) Acute Coronary Syndrome ACS Diagnosis: No Congestive Heart Failure Congestive Heart Failure Diagnosis No Cerebrovascular Accident CVA/TIA Diagnosis: No VTE (View Protocol) VTE Risk Factors Age>40 No Mechanical VTE Prophylaxis d/t N/A MechProphylax Ordered No VTE Pharm Prophylaxis d/t NA PharmProphylax ordered Sepsis (View protocol) Sepsis Present: No If YES complete Sepsis Event Note If YES complete Sepsis Event Note Mike Hayes 08/31/17 0540: Core Measures/Misc (12/01) Sepsis (View protocol) If YES complete Sepsis Event Note If YES complete Sepsis Event Note Resident Review Statement Resident Statement: examined this patient, discussed with internship, agreed with internship Other Findings: This is a 86-year-old female with past medical history of hypertension, CVA with left-sided hemiplegia and dysphagia status post gastric tube, atrial flutter on Eliquis, baseline dementia, recurrent hypoglycemic episodes, previous history of diabetes mellitus not on insulin was brought into emergency department after being found to be unresponsive and having low blood pressure. Currently the patient was discharged from [facility] after being treated for confusion and altered mental status and recurrent hypoglycemia thought to be from exogenous insulin, Adult Protective Services was informed during that admission, she was also bradycardic however stable, she was discharged home with daughter being given the benefit of doubt him spell again after being found to be unresponsive at home. Apparently the patient was doing okay at dinner last night, however she was drowsy yesterday but since today morning she was completely unresponsive, she would not open her eyes, she continued to be the same until the afternoon and therefore she was brought in to [place] ER. As per the daughter, she was difficult to arouse since today morning and the blood pressure was on the lower side. She also checked her sugar which was between 100-160. She also endorses some back pain for which she was given Tylenol at home. We asked her if she was able to given any opiates to which the daughter denied. The patient's daughter briefly mentioned about the previous admission when the patient was found to be hypoglycemic and noted that "they made such a big deal out of it"and told us "leave it the way it is"and she did not want to discuss about it any further. She was concerned about her mother possibly having myeloma and wanted everything to be worked up. Vitals on presentation temperature of 97.3, pulse of 48, respiration of 18, blood pressure of 120/55, she was saturating 99% on 3 L. Physical exam : Patient was completely unresponsive, her vitals were stable, she was lying on the bed, grimaces to pinprick sensation and deep pinching, however did not respond to sternal rub or waking up or shaking. CVS S1-S2 present no murmur. RS air entry bilaterally equal. Back, no pressure ulcers, bruises or discoloration on the skin. Per abdomen soft nontender. Lower extremity no edema. Relevant labs white count of 7.1, H/H of 9.7/28.9, platelets of 145. Sodium of 142, potassium of 4.2, BUN/creatinine 31/1.0, glucose of 91. Liver function test : WNL troponin <0.01 Utox positive for opiates urine benzo positive. Chest x-ray did not show any acute cardiopulmonary changes. Head CT showed old infarct with and Follow malacia in the right upper lobe unchanged, deep white matter and periventricular hypoattenuation nonspecific most likely sequelae of chronic microvascular angiopathic ischemia. Abdominal and pelvis CT showed appropriately placed percutaneous gastrotomy tube , innumerable tiny lightheaded bone lesions with endo-steel scalloping in the visualized forearms and hands, possibly suggestive of multiple myeloma. stercoral colitis, trace bilateral pleural effusion with moderate cardiomegaly. Diffuse atherosclerotic vascular calcification. Problem list along with assessment and plan # Unresponsiveness # Urinalysis positive, no symptoms as patient unresponsive. # Hypertension. # Lytic lesions on the CAT scan. Plan * Ct monitor on telemetry * patient recieved 2 runs of narcaine with no response, will check thyroid function test,ct to monitor electrolytes. * Oncology Consult in am for suspected myeloma like findings. * monitor FS * hold off insulin for now. * cause of unresposiveness unclear at this point. * will start iv ceftrixone for uti * ct to follow urine cx * ct protonix * ct losartan, lipitor,eliquis FC DVT PPX: alps and phramacological heart healthy, puree, PEG tube in place, patient was eating regular food Jasper ARORA, [facility] 08/31/17 0612: Core Measures/Misc (12/01) Sepsis (View protocol) If YES complete Sepsis Event Note If YES complete Sepsis Event Note Attending MD Review Statement Attending Statement Attending MD Statement: examined this patient, discuss w/resident/PA/COMPUTER PUBLISHER, agreed w/resident/PA/COMPUTER PUBLISHER, reviewed images, amended to note Attending Assessment/Plan: 86 yo F with h/o paroxysmal Aflutter on Eliquis, HTN, ENEDINA, 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 Patient is brought back in today unresponsive and was noted to be hypotensive on field per EMS. Patient was not hypoglycemic. Daughter was not available when I evaluated patient. Residents spoke with daughter with details as noted in above HPI. Vitals: afebrile, HR 40's, BP 141/62 (was not hypotensive in ER), sats 98% on 4L. Exam: moans to painful stimuli, mucosa is dry, pupils are small and sluggishly reactive to light. Chest clear, Heart S1S2 regular, No obvious bruises or ecchymosis noted. Labs: chronic normocytic anemia, BUN 31, elevated BUN/ creat ratio, glucose 91, lactic acid <0.5, trop neg. UA packed bacteria, WBC 10-15, large LE. Urine tox positive for opiates 265, benzos 96. CXR: no acute change. CT head: old infarct with encephalomalacia, chronic microvascular ischemia. CT abd/pelvis: Innumerable tiny lytic bone lesions with endosteal scalloping in visualized forearms and hands corelate for multiple myeloma, mild stercoral colitis, bilateral trace pleural effusions. EKG: sinus bradycardia, first degree AV block, Qtc 421. Patient received 2 doses on Narcan in the ER, with no immediate effect, but after about 5-7 mins patient was awake and verbal. Assessment and plan: 1. Unresponsive episode, altered mental status 2. Acute cystitis without hematuria 3. Suspicion of exogenous administration of drugs ?opiates or benzos 4. Hypotension resolved 5. Hypoxia 2/2 pleural effusion ?drugs, no e/o pneumonia 6. Lytic bone lesions concerning for MM 7. Chronic sinus bradycardia - 23 hour Observation on Telemetry - Neurochecks Q4 - NPO, resume diet when patient awake - Avoid opiates/ narcotics/ benzos or any sedatives - Panculture - IV ceftriaxone for UTI - Gentle hydration - Would re-consult elderly protective services - Social work consult - Oncology consult as patient's daughter wishes for further work up of possible MM - Monitor accucheks for hypoglycemia - Resume home meds through G-tube - Hold BP meds DVT ppx Eliquis. Full code. Daughter's son is apparently an Oncology researcher at [employer] and she would like him to be informed about MM work up. Observation Initial Note - I have personally examined MANGOCHAMP on 08/31/17 at 0612. The disposition of CHAMP LANDAVERDE is uncertain at this time and before a determination can be made, she requires a period of observation for the following reasons [unresponsiveness]
[2017-08-31 02:34] VITALS: BP 148/60
[2017-08-31 08:25] LABS: ABSOLUTE BASOPHIL COUNT 0 /CUMM (0.0-0.2); ABSOLUTE EOSINOPHIL COUNT 0.2 /CUMM (0.0-0.7); ABSOLUTE GRANULOCYTE CT 5.1 /CUMM (1.4-6.5); ABSOLUTE LYMPH COUNT 1.8 /CUMM (1.2-3.4); ABSOLUTE MONOCYTE COUNT 0.3 /CUMM (0.10-0.60); BASOPHIL % 0.2 % (0.0-2.0); GRANULOCYTE % 68.1 % (42.2-75.2); HEMATOCRIT 26.5 % (37-47); MEAN CORPUSCULAR HGB 31.6 PG (27.0-31.0); MEAN CORPUSCULAR HGB CONC 34.1 G/DL (33.0-37.0); MEAN CORPUSCULAR VOLUME 92.6 FL (81.0-99.0); MEAN PLATELET VOLUME 11.7 FL (7.4-10.4); PLATELET COUNT 127 /CUMM (130-400); RBC DISTRIBUTION WIDTH 13.7 % (11.5-14.5); RED BLOOD CELL CT 2.87 /CUMM (4.20-5.40); WHITE BLOOD CELL COUNT 7.5 /CUMM (4.8-10.8)
--- NOTE | 2017-08-31 08:50 | PN-Observation ---
Jose Juan Bocanegra 08/31/17 0845: Observation Note Observation Note _ I have personally examined CHAMP COBIAN. her disposition is uncertain at this time. Before a determination can be made, she requires continued observation for the following reasons. 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 Patient is brought back on 08/30 unresponsive and was noted to be hypotensive on field per EMS. Patient was not hypoglycemic. Patient received 2 doses on Narcan in the ER, with no immediate effect, but after about 5-7 mins patient was awake and verbal. Vitals: afebrile, HR 40's, BP 141/62 (was not hypotensive in ER), sats 98% on 4L. Labs: chronic normocytic anemia, BUN 31, elevated BUN/ creat ratio, glucose 91, lactic acid <0.5, trop neg. UA packed bacteria, WBC 10-15, large LE. Urine tox positive for opiates 265, benzos 96. CXR: no acute change. CT head: old infarct with encephalomalacia, chronic microvascular ischemia. CT abd/pelvis: Innumerable tiny lytic bone lesions with endosteal scalloping in visualized forearms and hands corelate for multiple myeloma, mild stercoral colitis, bilateral trace pleural effusions. EKG: sinus bradycardia, first degree AV block, Qtc 421. -- Assessment and plan: 1. Unresponsive episode, altered mental status 2. Acute cystitis without hematuria 3. Suspicion of exogenous administration of drugs ?opiates or benzos 4. Hypotension resolved 5. Hypoxia 2/2 pleural effusion ?drugs, no e/o pneumonia 6. Lytic bone lesions concerning for MM 7. Chronic sinus bradycardia - 23 hour Observation on Telemetry - Neurochecks Q4 - NPO, will resume diet when patient awake - Avoid opiates/ narcotics/ benzos or any sedatives - Panculture - IV ceftriaxone for UTI - Gentle hydration - Would re-consult elderly protective services - Social work consult - Oncology consulted as patient's daughter wishes for further work up of possible MM - Monitor accucheks for hypoglycemia - Resume home meds through G-tube DVT ppx Eliquis. Full code. Pain pathway Daughter's son is apparently an Oncology researcher at [employer] and she would like him to be informed about MM work up. Problem List: 1. Atrial fibrillation 2. Altered mental status 3. Hypotension DVT/Prophylaxis: pharmacological Subjective Follow-up For: 1. Unresponsive episode, altered mental status 2. Acute cystitis without hematuria 3. Suspicion of exogenous administration of drugs ?opiates or benzos 4. Hypotension resolved 5. Hypoxia 2/2 pleural effusion ?drugs, no e/o pneumonia 6. Lytic bone lesions concerning for MM 7. Chronic sinus bradycardia Complaints: pt unable to provide hx Tele-Events Since Last Visit: Sinus bradycardia 45-50 Subjective: Patient was seen and examined this morning She is alert, awake but not oriented to time, place and person She is able to understand my questions, however she couldn't provide any history. She denies having any pain. offers no complaints Results were stable, afebrile, heart rate 48, respiratory rate 18, blood pressure 148/60, saturating at 98 on 3 L Review of Systems Constitutional: Reports: see HPI. Objective Last 24 Hrs of Vital Signs/I&O Vital Signs Date Time Temp Pulse Resp B/P B/P Pulse O2 O2 Flow FiO2 Mean Ox Delivery Rate 08/31 0855 97.8 51 20 158/58 100 Nasal 2.0L Cannula 08/31 0800 98 Nasal 3.0L Cannula 08/31 0234 97.5 48 18 148/60 98 Nasal 2.5L Cannula 08/31 0230 98 Nasal 2.0L Cannula 08/31 0157 97.0 43 16 160/72 99 Nasal 3.0L Cannula 08/31 0037 96.8 47 18 151/71 100 Nasal 3.0L Cannula 08/30 2330 97.0 47 18 181/92 98 Nasal 3.0L Cannula 08/30 2233 95.1 45 18 140/63 99 Nasal 3.0L Cannula 08/30 2145 44 18 144/80 99 Nasal 3.0L Cannula 08/30 2039 97.3 48 18 120/55 99 Nasal 3.0L Cannula 08/30 1930 47 18 140/82 99 Nasal 3.0L Cannula 08/30 1834 94.6 48 18 141/62 98 Nasal 4.0L Cannula Intake & Output 08/31 1600 08/31 0800 08/31 0000 Intake Total 150 800 Output Total 350 Balance -200 800 Intake, IV 150 800 Intake, Oral 0 Output, Urine 350 Patient 64.183 kg Weight Weight Bed scale Measurement Method Physical Exam General Appearance: Alert, No Acute Distress Other Physical Findings: Skin No Significant Lesion Skin Temp/Moisture Exam: Warm/Dry Sepsis Skin Exam (color): Normal for Ethnicity HEENT Atraumatic, pupils small sized, minimal reactive to light Cardiovascular Normal S1, Normal S2 Lungs Normal Air Movement Neurological not copperative Extremities No Edema Current Medications: Current Medications Sig/Renee Start time Last Medication Dose Route Stop Time Status Admin Apixaban 2.5 MG BID 08/31 0900 AC PO Atorvastatin Calcium 80 MG 1700 08/31 1700 AC PO Ceftriaxone Sodium 1,000 MG 0100 09/01 0100 AC IV Ceftriaxone Sodium 1,000 MG DAILY 08/31 0900 DC IV Ceftriaxone Sodium 0 .STK-MED ONE 08/31 0031 DC .ROUTE Ceftriaxone Sodium 1,000 MG ONCE ONE 08/30 2300 DC 08/31 IV 08/30 2301 0038 Enoxaparin Sodium 30 MG DAILY 08/31 0900 CAN SC Ferrous Sulfate 325 MG DAILY 08/31 0900 AC PO Losartan Potassium 50 MG QPM 08/31 2100 AC PO Naloxone HCl 0.4 MG ONCE ONE 08/31 0030 DC 08/31 IV 08/31 0031 0029 Naloxone HCl 0 .STK-MED ONE 08/31 0024 DC .ROUTE Naloxone HCl 0.4 MG ONCE ONE 08/31 0015 DC 08/31 IV 08/31 0016 0015 Naloxone HCl 0 .STK-MED ONE 08/31 0014 DC .ROUTE Pantoprazole Sodium 40 MG DAILY 08/31 0900 AC 08/31 IV 0850 Sodium Chloride 1,000 ML Q10H 08/30 2245 DC 08/31 IV 08/31 0844 0102 Last 24 Hrs of Labs/Mics: Laboratory Tests 08/31/17 0630: Anion Gap 9, Estimated GFR 59 L, BUN/Creatinine Ratio 34.4 H, Magnesium 1.7, CBC w Diff NO MAN DIFF REQ, RBC 2.87 L, MCV 92.6, MCH 31.6 H, MCHC 34.1, RDW 13.7, MPV 11.7 H, Gran % 68.1, Lymphocytes % 24.5, Monocytes % 4.2, Eosinophils % 3.0, Basophils % 0.2, Absolute Granulocytes 5.1, Absolute Lymphocytes 1.8, Absolute Monocytes 0.3, Absolute Eosinophils 0.2, Absolute Basophils 0 08/30/172150: Lactic Acid Cancelled 08/30/17 1945: Urine Opiates Screen 265, Methadone Screen < 40, Barbiturate Screen < 60, Ur Phencyclidine Scrn < 6.00, Amphetamines Screen < 100, U Benzodiazepines Scrn 96, Urine Cocaine Screen < 50, Urine Cannabis Screen < 5.00, Urine Color YEL, Urine Clarity TURBD H, Urine pH 8.5 H, Ur Specific [place] 1.010, Urine Protein 100 H, Urine Ketones NEG, Urine Nitrite NEG, Urine Bilirubin NEG, Urine Urobilinogen 0.2, Ur Leukocyte Esterase LARGE H, Ur Microscopic SEDIMENT EXAMINED, Urine RBC 1-3, Urine WBC 10-15 H, Ur Epithelial Cells FEW, Urine Bacteria PACKD H, Urine Hemoglobin TRACE-INTACT, Urine Glucose NEG 08/30/171819: Anion Gap 7, Estimated GFR 52 L, BUN/Creatinine Ratio 31.0 H, Glucose 91, Lactic Acid 0.5 L, Calcium 8.6, Total Bilirubin 0.5, AST 22, ALT 23, Alkaline Phosphatase 104, Troponin I < 0.01, Total Protein 5.3 L, Albumin 2.8 L, Globulin 2.5, Albumin/Globulin Ratio 1.1, PT 15.5 H, INR 1.42 H, APTT 30, CBC w Diff NO MAN DIFF REQ, RBC 3.11 L, MCV 92.9, MCH 31.3 H, MCHC 33.7, RDW 13.8, MPV 11.0 H, Gran % 58.9, Lymphocytes % 30.7, Monocytes % 6.9, Eosinophils % 3.1 , Basophils % 0.4, Absolute Granulocytes 4.2, Absolute Lymphocytes 2.2, Absolute Monocytes 0.5, Absolute Eosinophils 0.2, Absolute Basophils 0 Microbiology 08/31 1999 BLOOD: Blood Culture - RECD 08/30 1944 URINE ROUT: Urine Culture - RECD 08/31 1819 BLOOD: Blood Culture - RECD Ernesto Chairez 08/31/17 0950: Attending Addendum Attending Brief Note Patient here in observation status for UTI with urine culture growing gram negative rods. Started on empiric ceftriaxone and follow C/S. Concern for abnormal lytic lesions : Oncology consult for rule out MM. Creatinine normal. Calcium levels acceptable. Bradycardia continue with telemetry monitoring, cardiology follow up. Abnormal Urine drug screen positive for opiates and benzodiazipiens which is not prescribed by me. Obtain all home medications. SW consult.
[2017-08-31 08:55] VITALS: BP 158/58
--- NOTE | 2017-08-31 12:05 | Cons- Cardiology ---
General Information and HPI Consulting Request Date of Consult: 08/31/17 Requested By: Jasper ARORA,Erum Reason for Consult: Bradycardia Source of Information: old records Exam Limitations: unable to give history, dementia History of Present Illness: Patient is unable to provide history and the HPI was obtained from the medical record. This is an 86-year-old female with a reported history of paroxysmal atrial fibrillation on Eliquis, tachybradycardia syndrome, hypertension, dementia, prior CVA who was discharged from [facility] 2 days ago after admission for altered mental status/confusion felt possibly due to hypoglycemia with concern for possible exogenous insulin administration. Per reports the patient now presents again with decreased responsiveness with some relative improvement after administration of Narcan. She was reportedly not found to be hypoglycemic but documentation said there was some concern for hypotension at home although she is not hypotensive here. Allergies/Medications Allergies: Coded Allergies: NO KNOWN ALLERGIES (05/29/15) Home Med List: Acetaminophen 325 MG TABLET 2 TAB PO TID PAIN (Reported) Amlodipine Besylate 5 MG TABLET 5 MG PO DAILY hypertension . Apixaban (Eliquis) 2.5 MG TABLET 1 TAB PO BID BLOOD THINNR (Reported) Atorvastatin Calcium 80 MG TABLET 1 TAB PO 1700 HLD (Reported) Ergocalciferol (Vitamin D2) (Vitamin D2) 50,000 UNIT CAPSULE 1 CAP PO QFRI SUPPLEMENT (Reported) Ferrous Sulfate (IRON) 325 MG (65 MG IRON) TABLET 1 TAB PO DAILY SUPPLEMENT ( Reported) Gabapentin 100 MG CAPSULE 1 CAP PO DAILY NEUROPATHY (Reported) Lactobacillus Acidophilus (Probiotic) 10 BILLION CELL CAPSULE 1 CAP PO DAILY PROBIOTIC (Reported) Losartan Potassium 50 MG TABLET 1 TAB PO QPM HEART/BP (Reported) Multivitamin (Multivitamins) 1 EACH CAPSULE 1 TAB PO DAILY SUPPLEMENT ( Reported) Pantoprazole Sodium 40 MG TABLET.DR 1 TAB PO DAILY GI (Reported) Polyethylene Glycol 3350 (Miralax) 17 GRAM/DOSE POWDER 17 GM PO DAILY CONSTIPATION pLEASE HOLD IF LOOSE STOOL Sennosides/Docusate Sodium (Senna Plus Tablet) 8.6 MG-50 MG TABLET 2 TAB PO DAILY CONSTIPATION PLEASE HOLD IF LOOSE STOOL Sertraline HCl 25 MG TABLET 2 TAB PO DAILY MENTAL HEALTH (Reported) Vitamin B Complex (Super B-50 Complex) 1 EACH CAPSULE 1 CAP PO DAILY SUPPLEMENT (Reported) Current Medications: Current Medications Sig/Renee Start time Last Medication Dose Route Stop Time Status Admin Apixaban 2.5 MG BID 08/31 0900 AC PO Atorvastatin Calcium 80 MG 1700 08/31 1700 AC PO Ceftriaxone Sodium 1,000 MG 0100 09/01 0100 AC IV Ceftriaxone Sodium 1,000 MG DAILY 08/31 0900 DC IV Ceftriaxone Sodium 0 .STK-MED ONE 08/31 0031 DC .ROUTE Ceftriaxone Sodium 1,000 MG ONCE ONE 08/30 2300 DC 08/31 IV 08/30 2301 0038 Enoxaparin Sodium 30 MG DAILY 08/31 0900 CAN SC Ferrous Sulfate 325 MG DAILY 08/31 0900 AC PO Losartan Potassium 50 MG QPM 08/31 2100 AC PO Naloxone HCl 0.4 MG ONCE ONE 08/31 0030 DC 08/31 IV 08/31 0031 0029 Naloxone HCl 0 .STK-MED ONE 08/31 0024 DC .ROUTE Naloxone HCl 0.4 MG ONCE ONE 08/31 0015 DC 08/31 IV 08/31 0016 0015 Naloxone HCl 0 .STK-MED ONE 08/31 0014 DC .ROUTE Pantoprazole Sodium 40 MG DAILY 08/31 0900 AC 08/31 IV 0850 Sodium Chloride 1,000 ML Q10H 08/30 2245 DC 08/31 IV 08/31 0844 0102 Review of Systems Review of Systems: Unable to obtain Past History Travel History Traveled to [place] past 21 day No Medical History Neurological: CVA, dementia EENT: cataracts, epistaxis Cardiovascular: AFIB, hypertension, hyperlipidemia, varicose veins Respiratory: pulmonary embolism (remote), pulmonary edema Gastrointestinal: constipation, ACID REFLUX Post PEG pandiverticulosis coli, L> R Hx colon adenoma Hepatic: NONE Renal: RIGHT RENAL ARTERY STENOSIS Musculoskeletal: chronic back pain, disk herniation, osteoarthritis, osteopenia Psychiatric: depression (post CVA) Endocrine: diabetes, obesity, vitamin D deficiency Blood Disorders: anemia Cancer(s): NONE 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 MOTHER (MVA). , Age 30-40; Cause: MVA (motor vehicle accident). FATHER, , Age 30-40; Cause: MVA (motor vehicle accident). Psychosocial History Who Do You Live With? spouse ( & dtr, Nhi Akhil), child Services at Home: Home Health Aide, Nursing Primary Language: Setswana, Sinhala Smoking Status: Unknown If Ever Smoked Living Will? no Power of Ice Handler/HCP? no Functional Ability ADLs Needs Assist: dressing, eating, toileting, bathing. Ambulation: non-ambulatory IADLs Needs Assist: shopping, housework, finances, food prep, telephone, transportation, medication admin. Exam & Diagnostic Data Vital Signs and I&O Vital Signs Date Time Temp Pulse Resp B/P B/P Pulse O2 O2 Flow FiO2 Mean Ox Delivery Rate 08/31 0855 97.8 51 20 158/58 100 Nasal 2.0L Cannula 08/31 0800 98 Nasal 3.0L Cannula 08/31 0234 97.5 48 18 148/60 98 Nasal 2.5L Cannula 08/31 0230 98 Nasal 2.0L Cannula 08/31 0157 97.0 43 16 160/72 99 Nasal 3.0L Cannula 08/31 0037 96.8 47 18 151/71 100 Nasal 3.0L Cannula 08/30 2330 97.0 47 18 181/92 98 Nasal 3.0L Cannula 08/30 2233 95.1 45 18 140/63 99 Nasal 3.0L Cannula 08/30 2145 44 18 144/80 99 Nasal 3.0L Cannula 08/30 2039 97.3 48 18 120/55 99 Nasal 3.0L Cannula 08/30 1930 47 18 140/82 99 Nasal 3.0L Cannula 08/30 1834 94.6 48 18 141/62 98 Nasal 4.0L Cannula Intake & Output 08/31 1600 08/31 0800 08/31 0000 08/30 1600 08/30 0800 08/30 0000 Intake Total 150 800 Output Total 350 Balance -200 800 Intake, IV 150 800 Intake, Oral 0 Output, Urine 350 Patient 142 lb Weight Weight Bed scale Measurement Method Physical Exam: General: Lethargic; following simple commands Eyes: No obvious scleral icterus. HEENT: No jugular venous distention or abnormal jugular venous pulsations. Cardiovascular: Normal intensity S1/S2. Regular bradycardia Respiratory: No rales or rhonchi Abdomen: no guarding or rebound tenderness. Musculoskeletal: No clubbing or cyanosis noted Skin: warm Lymph: No gross lymphadenopathy. Labs/Klaus Results: Laboratory Tests 08/31 08/30 0630 2151 Chemistry Sodium (137 - 145 mmol/L) 144 Potassium (3.5 - 5.1 mmol/L) 3.9 Chloride (98 - 107 mmol/L) 114 H Carbon Dioxide (22 - 30 mmol/L) 22 Anion Gap (5 - 16) 9 BUN (7 - 17 mg/dL) 31 H Creatinine (0.5 - 1.0 mg/dL) 0.9 Estimated GFR (>60 ml/min) 59 L BUN/Creatinine Ratio (7 - 25 %) 34.4 H Lactic Acid Cancelled Magnesium (1.6 - 2.3 mg/dL) 1.7 Hematology CBC w Diff NO MAN DIFF REQ WBC (4.8 - 10.8 /CUMM) 7.5 RBC (4.20 - 5.40 /CUMM) 2.87 L Hgb (12.0 - 16.0 G/DL) 9.0 L Hct (37 - 47 %) 26.5 L MCV (81.0 - 99.0 FL) 92.6 MCH (27.0 - 31.0 PG) 31.6 H MCHC (33.0 - 37.0 G/DL) 34.1 RDW (11.5 - 14.5 %) 13.7 Plt Count (130 - 400 /CUMM) 127 L MPV (7.4 - 10.4 FL) 11.7 H Gran % (42.2 - 75.2 %) 68.1 Lymphocytes % (20.5 - 51.1 %) 24.5 Monocytes % (1.7 - 9.3 %) 4.2 Eosinophils % (0 - 5 %) 3.0 Basophils % (0.0 - 2.0 %) 0.2 Absolute Granulocytes (1.4 - 6.5 /CUMM) 5.1 Absolute Lymphocytes (1.2 - 3.4 /CUMM) 1.8 Absolute Monocytes (0.10 - 0.60 /CUMM) 0.3 Absolute Eosinophils (0.0 - 0.7 /CUMM) 0.2 Absolute Basophils (0.0 - 0.2 /CUMM) 0 08/30 08/30 1945 1820 Chemistry Sodium (137 - 145 mmol/L) 142 Potassium (3.5 - 5.1 mmol/L) 4.2 Chloride (98 - 107 mmol/L) 110 H Carbon Dioxide (22 - 30 mmol/L) 26 Anion Gap (5 - 16) 7 BUN (7 - 17 mg/dL) 31 H Creatinine (0.5 - 1.0 mg/dL) 1.0 Estimated GFR (>60 ml/min) 52 L BUN/Creatinine Ratio (7 - 25 %) 31.0 H Glucose (65 - 99 mg/dL) 91 Lactic Acid (0.7 - 2.1 mmol/L) 0.5 L Calcium (8.4 - 10.2 mg/dL) 8.6 Total Bilirubin (0.2 - 1.3 mg/dL) 0.5 AST (14 - 36 U/L) 22 ALT (9 - 52 U/L) 23 Alkaline Phosphatase (<127 U/L) 104 Troponin I (< 0.11 ng/ml) < 0.01 Total Protein (6.3 - 8.2 g/dL) 5.3 L Albumin (3.5 - 5.0 g/dL) 2.8 L Globulin (1.9 - 4.2 gm/dL) 2.5 Albumin/Globulin Ratio (1.1 - 2.2 %) 1.1 Coagulation PT (9.4 - 12.5 SEC) 15.5 H INR (0.90 - 1.19) 1.42 H APTT (25 - 37 SEC) 30 Hematology CBC w Diff NO MAN DIFF REQ WBC (4.8 - 10.8 /CUMM) 7.1 RBC (4.20 - 5.40 /CUMM) 3.11 L Hgb (12.0 - 16.0 G/DL) 9.7 L Hct (37 - 47 %) 28.9 L MCV (81.0 - 99.0 FL) 92.9 MCH (27.0 - 31.0 PG) 31.3 H MCHC (33.0 - 37.0 G/DL) 33.7 RDW (11.5 - 14.5 %) 13.8 Plt Count (130 - 400 /CUMM) 145 MPV (7.4 - 10.4 FL) 11.0 H Gran % (42.2 - 75.2 %) 58.9 Lymphocytes % (20.5 - 51.1 %) 30.7 Monocytes % (1.7 - 9.3 %) 6.9 Eosinophils % (0 - 5 %) 3.1 Basophils % (0.0 - 2.0 %) 0.4 Absolute Granulocytes (1.4 - 6.5 /CUMM) 4.2 Absolute Lymphocytes (1.2 - 3.4 /CUMM) 2.2 Absolute Monocytes (0.10 - 0.60 /CUMM) 0.5 Absolute Eosinophils (0.0 - 0.7 /CUMM) 0.2 Absolute Basophils (0.0 - 0.2 /CUMM) 0 Toxicology Urine Opiates Screen (>2000 NG/ML) 265 Methadone Screen (>300 NG/ML) < 40 Barbiturate Screen (>200 NG/ML) < 60 Ur Phencyclidine Scrn (>25 NG/ML) < 6.00 Amphetamines Screen (>1000 NG/ML) < 100 U Benzodiazepines Scrn (>200 NG/ML) 96 Urine Cocaine Screen (>300 NG/ML) < 50 Urine Cannabis Screen (>50 NG/ML) < 5.00 Urines Urine Color (YEL,AMB,STR) YEL Urine Clarity (CLEAR) TURBD H Urine pH (5.0 - 8.0) 8.5 H Ur Specific [place] (1.001 - 1.035) 1.010 Urine Protein (NEG,<30 MG/DL) 100 H Urine Ketones (NEG) NEG Urine Nitrite (NEG) NEG Urine Bilirubin (NEG) NEG Urine Urobilinogen (0.1 - 1.0 EU/dl) 0.2 Ur Leukocyte Esterase (NEG) LARGE H Ur Microscopic SEDIMENT EXAMINED Urine RBC (0 - 5 /HPF) 1-3 Urine WBC (0 - 2 /HPF) 10-15 H Ur Epithelial Cells (NONE,FEW) FEW Urine Bacteria (NEG/NONE) PACKD H Urine Hemoglobin (NEG) TRACE-INTACT Urine Glucose (N MG/DL) NEG Diagnostic Data EKG Results Patient was personally reviewed and shows sinus bradycardia at 44 bpm with first -degree AV block CXR Results Heart remains enlarged, LEFT hemidiaphragm is partially obscured probably by overlapping soft tissue of the breast, cannot rule out underlying mild infiltrates. There is increased interstitial lung markings unchanged. No large effusion or pneumothorax. Other Results Telemetry tracings were personally reviewed and shows sinus bradycardia with no prolonged pauses or advanced heart block Assessment/Plan Assessment/Plan 1. Altered mental status of unclear etiology; possible response to Narcan 2. Chronic sinus bradycardia with possible history of tachybradycardia syndrome /PAF maintained on Eliquis 3. Recent admission for AMS/hypoglycemia with concern for exogenous insulin administration 4. UTI 5. Dementia 6. History of prior CVA 7. Positive urine toxicology 8. Hypertension Etiology of the recurrent episode is not entirely clear; per the medical record there was a possible response to Narcan and a urine toxicology screen was positive for opiates and benzos; these medications are not listed on her home med list but unclear to me if they were administered at all during previous hospitalization. She is also found to have evidence of UTI which may have contributed. The sinus bradycardia is not a new finding for her but we may need to readdress the possibility of permanent pacemaker depending on goals of care. Monitor glucose closely given prior episodes of hypoglycemia. Maintain the patient on telemetry for now. Resume outpatient blood pressure medication regimen. Rolly Abreu MD [facility] Consult Acknowledgment - Thank you for your consult request.
[2017-08-31 14:35] VITALS: BP 146/62
[2017-08-31 21:52] VITALS: BP 140/78
[2017-09-01 06:00] VITALS: BP 146/74
--- NOTE | 2017-09-01 07:16 | Cons- Hematology ---
General Information and HPI Consulting Request Date of Consult: 09/01/17 Requested By: Jasper ARORA,Erum Reason for Consult: Lytic lesions Source of Information: old records Exam Limitations: dementia, poor historian, language barrier History of Present Illness: Ms. 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 Patient is unable to give history today. History obtained mainly through chart review. Patient has been admitted numerous time over the last year. She was discharged 2 days prior to admission. She was noted to have confusion and recurrent hypoglycemia. At the time of discharge, she was alert and orient. She was noted to be drowsy and lethargic at home prior to presenting to the hospital. On presentation, she was given Narcan and responded after 5-7 minutes. She was more alert and oriented afterward. Urine drug screen was positive for opiates and benzos. These are not on her home medication or given previous. She was noted to have innumerable tiny lytic bone lesions with endosteal scalloping in visualized forearms and hands. She was noted to be anemic with hemoglobin of 9.7 and hematocrit of 28.9. Platelet count is normal at 145,000. Her renal function is normal. Calcium is normal. Urine was noted to be positive for GNR. This morning, she was noted chest pain and leg pain. She denies any other symptoms. Allergies/Medications Allergies: Coded Allergies: NO KNOWN ALLERGIES (05/29/15) Home Med List: Acetaminophen 325 MG TABLET 2 TAB PO TID PAIN (Reported) Amlodipine Besylate 5 MG TABLET 5 MG PO DAILY hypertension . Apixaban (Eliquis) 2.5 MG TABLET 1 TAB PO BID BLOOD THINNR (Reported) Atorvastatin Calcium 80 MG TABLET 1 TAB PO 1700 HLD (Reported) Ergocalciferol (Vitamin D2) (Vitamin D2) 50,000 UNIT CAPSULE 1 CAP PO QFRI SUPPLEMENT (Reported) Ferrous Sulfate (IRON) 325 MG (65 MG IRON) TABLET 1 TAB PO DAILY SUPPLEMENT ( Reported) Gabapentin 100 MG CAPSULE 1 CAP PO DAILY NEUROPATHY (Reported) Lactobacillus Acidophilus (Probiotic) 10 BILLION CELL CAPSULE 1 CAP PO DAILY PROBIOTIC (Reported) Losartan Potassium 50 MG TABLET 1 TAB PO QPM HEART/BP (Reported) Multivitamin (Multivitamins) 1 EACH CAPSULE 1 TAB PO DAILY SUPPLEMENT ( Reported) Pantoprazole Sodium 40 MG TABLET.DR 1 TAB PO DAILY GI (Reported) Polyethylene Glycol 3350 (Miralax) 17 GRAM/DOSE POWDER 17 GM PO DAILY CONSTIPATION pLEASE HOLD IF LOOSE STOOL Sennosides/Docusate Sodium (Senna Plus Tablet) 8.6 MG-50 MG TABLET 2 TAB PO DAILY CONSTIPATION PLEASE HOLD IF LOOSE STOOL Sertraline HCl 25 MG TABLET 2 TAB PO DAILY MENTAL HEALTH (Reported) Vitamin B Complex (Super B-50 Complex) 1 EACH CAPSULE 1 CAP PO DAILY SUPPLEMENT (Reported) Current Medications: Current Medications Sig/Renee Start time Last Medication Dose Route Stop Time Status Admin Amlodipine Besylate 5 MG DAILY 09/01 0900 AC PO Apixaban 2.5 MG BID 08/31 0900 AC 08/31 PO 2011 Atorvastatin Calcium 80 MG 1700 08/31 1700 AC 08/31 PO 1712 Ceftriaxone Sodium 1,000 MG 0100 09/01 0100 AC 09/01 IV 0209 Ceftriaxone Sodium 1,000 MG DAILY 08/31 0900 DC IV Enoxaparin Sodium 30 MG DAILY 08/31 0900 CAN SC Ferrous Sulfate 325 MG DAILY 08/31 0900 AC 08/31 PO 1225 Losartan Potassium 50 MG QPM 08/31 2100 AC 08/31 PO 2011 Pantoprazole Sodium 40 MG DAILY 08/31 0900 AC 08/31 IV 0850 Sodium Chloride 1,000 ML Q10H 08/30 2245 DC 08/31 IV 08/31 0844 0102 Review of Systems Review of Systems: Limited due to mental status and language Review of Systems Cardiovascular: Reports: chest pain. Musculoskeletal: Reports: back pain, joint pain, muscle pain. All Other Systems: Reviewed and Negative Past History Travel History Traveled to [place] past 21 day No Medical History Neurological: CVA, dementia EENT: cataracts, epistaxis Cardiovascular: AFIB, hypertension, hyperlipidemia, varicose veins Respiratory: pulmonary embolism (remote), pulmonary edema Gastrointestinal: constipation, ACID REFLUX Post PEG pandiverticulosis coli, L> R Hx colon adenoma Hepatic: NONE Renal: RIGHT RENAL ARTERY STENOSIS Musculoskeletal: chronic back pain, disk herniation, osteoarthritis, osteopenia Psychiatric: depression (post CVA) Endocrine: diabetes, obesity, vitamin D deficiency Blood Disorders: anemia Cancer(s): 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 MOTHER (MVA). , Age 30-40; Cause: MVA (motor vehicle accident). FATHER, , Age 30-40; Cause: MVA (motor vehicle accident). Psychosocial History Who Do You Live With? spouse ( & dtr, Nhi Landaverde), child Services at Home: Home Health Aide, Nursing Primary Language: Ivorian, Tristanian Smoking Status: Unknown If Ever Smoked Living Will? no Power of Fish Net Stringer/HCP? no Functional Ability ADLs Needs Assist: dressing, eating, toileting, bathing. Ambulation: non-ambulatory IADLs Needs Assist: shopping, housework, finances, food prep, telephone, transportation, medication admin. Exam & Diagnostic Data Vital Signs and I&O Vital Signs Date Time Temp Pulse Resp B/P B/P Pulse O2 O2 Flow FiO2 Mean Ox Delivery Rate 08/31 2152 98.5 63 20 140/78 98 Room Air 08/31 2012 58 146/62 08/31 1600 97 Room Air 08/31 1435 98.1 58 20 146/62 99 Room Air 08/31 0855 97.8 51 20 158/58 100 Nasal 2.0L Cannula 08/31 0800 98 Nasal 3.0L Cannula Intake & Output 09/01 0800 09/01 0000 08/31 1600 Intake Total 360 590 Output Total 450 350 Balance -90 240 Intake, IV 350 Intake, Oral 360 240 Output, Urine 450 350 Patient 69.541 kg Weight Weight Bed scale Measurement Method Physical Exam General Appearance: no apparent distress, alert, awake Head: atraumatic, normal appearance Eyes: Bilateral: PERRL. Ears, Nose, Throat: normal pharynx Neck: supple Respiratory: normal breath sounds, chest non-tender, quiet respiration Cardiovascular: regular rate/rhythm Gastrointestinal: normal bowel sounds, soft, tenderness (PEG area) Extremities: no edema Neurologic/Psych: awake, alert, motor weakness (Left side), motor/sensory deficits (Left side) Skin: normal color, warm/dry Lymphatic: no anterior cervical sourav Last 48 Hours of Lab Results: Laboratory Tests 08/31 08/30 0630 2151 Chemistry Sodium (137 - 145 mmol/L) 144 Potassium (3.5 - 5.1 mmol/L) 3.9 Chloride (98 - 107 mmol/L) 114 H Carbon Dioxide (22 - 30 mmol/L) 22 Anion Gap (5 - 16) 9 BUN (7 - 17 mg/dL) 31 H Creatinine (0.5 - 1.0 mg/dL) 0.9 Estimated GFR (>60 ml/min) 59 L BUN/Creatinine Ratio (7 - 25 %) 34.4 H Lactic Acid Cancelled Magnesium (1.6 - 2.3 mg/dL) 1.7 Hematology CBC w Diff NO MAN DIFF REQ WBC (4.8 - 10.8 /CUMM) 7.5 RBC (4.20 - 5.40 /CUMM) 2.87 L Hgb (12.0 - 16.0 G/DL) 9.0 L Hct (37 - 47 %) 26.5 L MCV (81.0 - 99.0 FL) 92.6 MCH (27.0 - 31.0 PG) 31.6 H MCHC (33.0 - 37.0 G/DL) 34.1 RDW (11.5 - 14.5 %) 13.7 Plt Count (130 - 400 /CUMM) 127 L MPV (7.4 - 10.4 FL) 11.7 H Gran % (42.2 - 75.2 %) 68.1 Lymphocytes % (20.5 - 51.1 %) 24.5 Monocytes % (1.7 - 9.3 %) 4.2 Eosinophils % (0 - 5 %) 3.0 Basophils % (0.0 - 2.0 %) 0.2 Absolute Granulocytes (1.4 - 6.5 /CUMM) 5.1 Absolute Lymphocytes (1.2 - 3.4 /CUMM) 1.8 Absolute Monocytes (0.10 - 0.60 /CUMM) 0.3 Absolute Eosinophils (0.0 - 0.7 /CUMM) 0.2 Absolute Basophils (0.0 - 0.2 /CUMM) 0 08/30 08/30 1945 1820 Chemistry Sodium (137 - 145 mmol/L) 142 Potassium (3.5 - 5.1 mmol/L) 4.2 Chloride (98 - 107 mmol/L) 110 H Carbon Dioxide (22 - 30 mmol/L) 26 Anion Gap (5 - 16) 7 BUN (7 - 17 mg/dL) 31 H Creatinine (0.5 - 1.0 mg/dL) 1.0 Estimated GFR (>60 ml/min) 52 L BUN/Creatinine Ratio (7 - 25 %) 31.0 H Glucose (65 - 99 mg/dL) 91 Lactic Acid (0.7 - 2.1 mmol/L) 0.5 L Calcium (8.4 - 10.2 mg/dL) 8.6 Total Bilirubin (0.2 - 1.3 mg/dL) 0.5 AST (14 - 36 U/L) 22 ALT (9 - 52 U/L) 23 Alkaline Phosphatase (<127 U/L) 104 Troponin I (< 0.11 ng/ml) < 0.01 Total Protein (6.3 - 8.2 g/dL) 5.3 L Albumin (3.5 - 5.0 g/dL) 2.8 L Globulin (1.9 - 4.2 gm/dL) 2.5 Albumin/Globulin Ratio (1.1 - 2.2 %) 1.1 Coagulation PT (9.4 - 12.5 SEC) 15.5 H INR (0.90 - 1.19) 1.42 H APTT (25 - 37 SEC) 30 Hematology CBC w Diff NO MAN DIFF REQ WBC (4.8 - 10.8 /CUMM) 7.1 RBC (4.20 - 5.40 /CUMM) 3.11 L Hgb (12.0 - 16.0 G/DL) 9.7 L Hct (37 - 47 %) 28.9 L MCV (81.0 - 99.0 FL) 92.9 MCH (27.0 - 31.0 PG) 31.3 H MCHC (33.0 - 37.0 G/DL) 33.7 RDW (11.5 - 14.5 %) 13.8 Plt Count (130 - 400 /CUMM) 145 MPV (7.4 - 10.4 FL) 11.0 H Gran % (42.2 - 75.2 %) 58.9 Lymphocytes % (20.5 - 51.1 %) 30.7 Monocytes % (1.7 - 9.3 %) 6.9 Eosinophils % (0 - 5 %) 3.1 Basophils % (0.0 - 2.0 %) 0.4 Absolute Granulocytes (1.4 - 6.5 /CUMM) 4.2 Absolute Lymphocytes (1.2 - 3.4 /CUMM) 2.2 Absolute Monocytes (0.10 - 0.60 /CUMM) 0.5 Absolute Eosinophils (0.0 - 0.7 /CUMM) 0.2 Absolute Basophils (0.0 - 0.2 /CUMM) 0 Toxicology Urine Opiates Screen (>2000 NG/ML) 265 Methadone Screen (>300 NG/ML) < 40 Barbiturate Screen (>200 NG/ML) < 60 Ur Phencyclidine Scrn (>25 NG/ML) < 6.00 Amphetamines Screen (>1000 NG/ML) < 100 U Benzodiazepines Scrn (>200 NG/ML) 96 Urine Cocaine Screen (>300 NG/ML) < 50 Urine Cannabis Screen (>50 NG/ML) < 5.00 Urines Urine Color (YEL,AMB,STR) YEL Urine Clarity (CLEAR) TURBD H Urine pH (5.0 - 8.0) 8.5 H Ur Specific [place] (1.001 - 1.035) 1.010 Urine Protein (NEG,<30 MG/DL) 100 H Urine Ketones (NEG) NEG Urine Nitrite (NEG) NEG Urine Bilirubin (NEG) NEG Urine Urobilinogen (0.1 - 1.0 EU/dl) 0.2 Ur Leukocyte Esterase (NEG) LARGE H Ur Microscopic SEDIMENT EXAMINED Urine RBC (0 - 5 /HPF) 1-3 Urine WBC (0 - 2 /HPF) 10-15 H Ur Epithelial Cells (NONE,FEW) FEW Urine Bacteria (NEG/NONE) PACKD H Urine Hemoglobin (NEG) TRACE-INTACT Urine Glucose (N MG/DL) NEG Imaging/Other Studies: Head CT without contrast 08/30/2017: Exam essentially unchanged, old infarct with encephalomalacia in the RIGHT parietal lobe unchanged, Deep white matter and periventricular hypoattenuation, nonspecific; however, in this patient's age group most likely sequela of chronic microvascular angiopathy ischemia. Abdomen/pelvis CT without contrast 08/30/2017: 1. Appropriately placed percutaneous gastrostomy tube with its tip within the stomach and the balloon pulled back against the anterior wall of the stomach. 2. Though not as apparent within the axial skeleton, there is suggestion of innumerable tiny lytic bone lesions with endosteal scalloping in the visualized forearms and hands which are included within the scan volume. Clinical correlation for multiple myeloma is recommended. 3. Moderate volume of stool within the rectum with mild rectal wall thickening and stranding in the presacral fat compatible with mild stercoral colitis. 4. Trace bilateral pleural effusions with moderate cardiomegaly and a moderate sized pericardial effusion. 5. Diffuse atherosclerotic vascular calcification without abdominal aortic aneurysm Assessment/Plan Assessment: Ms. 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 Patient is unable to give history today. History obtained mainly through chart review. She presented with AMS and hypotension. She responded after receiving Narcan. Urine toxicology screening was noted to have opiates and benzos. She was noted to be anemic. CT of the abdomen and pelvis noted innumerable suggestion of innumerable tiny lytic bone lesions with endosteal scalloping in the visualized forearms and hands. These were concerning for possible multiple myeloma. She does have anemia. Her renal function is normal. Calcium is normal. Anemia may be multifactorial. She should have work up with vitamin B12 level and folate level. To definitively make the diagnosis, she will need bone marrow biopsy. For now, she may be worked up with SPEP, UPEP, serum free ligh chains, and serum immunoglobulins. Further work up will be dependent on the findings. She will need skeletal survey done. Given her mental status and clinical condition, it is unclear if she would be a candidate for intensive therapy. Recommendations: Lytic lesions: -Obtain SPEP -Obtain UPEP -Obtain serum free light chains -Obtain skeletal survey -Obtain immunoglobulin levels (IgA, IgM, and IgG) -Further work up may be done as outpatient Anemia: -Check vitamin B12 level -Check Folate level Problem List: 1. Altered mental status 2. Bone lesion 3. Anemia Other Findings/Comments: Please call [phone] with any questions or concerns. Consult Acknowledgment - Thank you for your consult request.
[2017-09-01 07:52] LABS: ABSOLUTE BASOPHIL COUNT 0 /CUMM (0.0-0.2); ABSOLUTE EOSINOPHIL COUNT 0.2 /CUMM (0.0-0.7); ABSOLUTE GRANULOCYTE CT 5.1 /CUMM (1.4-6.5); ABSOLUTE LYMPH COUNT 1.4 /CUMM (1.2-3.4); ABSOLUTE MONOCYTE COUNT 0.4 /CUMM (0.10-0.60); BASOPHIL % 0.3 % (0.0-2.0); EOSINOPHIL % 2.3 % (0-5); GRANULOCYTE % 71.5 % (42.2-75.2); HEMATOCRIT 26.5 % (37-47); MEAN CORPUSCULAR HGB 31.1 PG (27.0-31.0); MEAN CORPUSCULAR VOLUME 91.5 FL (81.0-99.0); MEAN PLATELET VOLUME 10.8 FL (7.4-10.4); PLATELET COUNT 145 /CUMM (130-400); RBC DISTRIBUTION WIDTH 13.4 % (11.5-14.5); WHITE BLOOD CELL COUNT 7.2 /CUMM (4.8-10.8)
--- NOTE | 2017-09-01 08:10 | PN- Housestaff ---
Cristy Mathis 09/01/17 0809: Subjective Follow-up For: 1. Unresponsive episode, altered mental status 2. Acute cystitis without hematuria 3. Suspicion of exogenous administration of drugs ?opiates or benzos 4. Hypotension resolved 5. Hypoxia 2/2 pleural effusion ?drugs, no e/o pneumonia 6. Lytic bone lesions concerning for MM 7. Chronic sinus bradycardia Subjective: seen and examined patient. Awake and alert. Baseline dementia. Review of Systems Constitutional: Denies: see HPI. Objective Last 24 Hrs of Vital Signs/I&O Vital Signs Date Time Temp Pulse Resp B/P B/P Pulse O2 O2 Flow FiO2 Mean Ox Delivery Rate 09/01 0831 65 146/74 09/01 0600 97.9 62 20 146/74 98 Room Air 08/31 2152 98.5 63 20 140/78 98 Room Air 08/31 2012 58 146/62 08/31 1600 97 Room Air Intake & Output 09/01 1600 09/01 0800 09/01 0000 Intake Total 150 120 360 Output Total 250 450 450 Balance -100 -330 -90 Intake, Oral 150 120 360 Number 1 Bowel Movements Output, Urine 250 450 450 Patient 153 lb Weight Weight Bed scale Measurement Method Physical Exam General Appearance: Alert, No Acute Distress Cardiovascular: Regular Rate, Normal S1, Normal S2 Lungs: Normal Air Movement Assessment/Plan Assessment: 86 yo F with h/o paroxysmal Aflutter on Eliquis, HTN, ENEDINA, 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 Brought back to [facility] on 08/30 by EMS for unresponsive and was noted to be hypotensive on field per EMS. Patient was not hypoglycemic on admission. Received 2 doses on Narcan in the ER, with no immediate effect, but after about 5-7 mins patient was awake and verbal. Labs: chronic normocytic anemia, BUN 31, elevated BUN/ creat ratio, glucose 91, lactic acid <0.5, trop neg. UA packed bacteria, WBC 10-15, large LE. Urine tox positive for opiates 265, benzos 96. CXR: no acute change. CT head: old infarct with encephalomalacia, chronic microvascular ischemia. CT abd/pelvis: Innumerable tiny lytic bone lesions with endosteal scalloping in visualized forearms and hands corelate for multiple myeloma, mild stercoral colitis, bilateral trace pleural effusions. EKG: sinus bradycardia, first degree AV block, Qtc 421. Assessment and plan: 1. Unresponsive episode, altered mental status 2. Acute cystitis without hematuria 3. Suspicion of exogenous administration of drugs ?opiates or benzos 4. Hypotension resolved 5. Hypoxia 2/2 pleural effusion ?drugs, no e/o pneumonia 6. Lytic bone lesions concerning for MM 7. Chronic sinus bradycardia Plan - Admit to inpatient and continue on Telemetry - Neurochecks Q4, 1:1 sitter - Avoid opiates/ narcotics/ benzos or any sedatives -Prelim blood cultures show no growth - IV ceftriaxone for UTI, UC growing klebsiella pnuemonia and Proteus mirabilis - Social work consult - Oncology on board f/up UPEP/SPEP/immunoglobulin levels (IgA, IgM, and IgG) -f/up skeletal survey - Monitor accucheks for hypoglycemia - Continue home meds of losartan and norvasc DVT ppx Eliquis. Full code. Pain pathway Problem List: 1. PAROXYSMAL ATRIAL FIBRILLATION 2. Bradycardia 3. 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 Interpretor Elif [id number]. Patient poor historian. If asked she has any questions or concerns she said "my daughter is not here". Obtain Head CT. UTI with urine culture growing gram negative rods. iv ceftriaxone and follow C/ S. Concern for abnormal lytic lesions : Oncology consulted for rule out MM. Creatinine normal. Calcium levels acceptable. Work up as per oncology. Send labs as requested. Anemia multifactorial Afib with Bradycardia on eliquis continue with telemetry monitoring, cardiology follow up. Abnormal Urine drug screen positive for opiates and benzodiazipiens which is not prescribed by me. Bed bound status from previous CVA, frequent repositioing, ulcer precautions. SW consult.
--- NOTE | 2017-09-01 11:18 | PN- Cardiology ---
Subjective Subjective: The patient is able to give only limited history. She is awake and alert. No chest pain. No palpitations. monitoring tech reveals sinus rhythm. The sinus bradycardia noted on admission has improved. Objective Vital Signs and I&Os Vital Signs Date Time Temp Pulse Resp B/P B/P Pulse O2 O2 Flow FiO2 Mean Ox Delivery Rate 09/01 830 65 146/74 09/01 0600 97.9 62 20 146/74 98 Room Air 08/31 2152 98.5 63 20 140/78 98 Room Air 09/01 2011 58 146/62 08/31 1600 97 Room Air 08/31 1435 98.1 58 20 146/62 99 Room Air Intake & Output 09/01 1600 09/01 0800 09/01 0000 08/31 1600 08/31 0800 08/31 0000 Intake Total 120 360 590 150 800 Output Total 450 450 350 350 Balance -330 -90 240 -200 800 Intake, IV 350 150 800 Intake, Oral 120 360 240 0 Number 1 Bowel Movements Output, Urine 450 450 350 350 Patient 153 lb 142 lb Weight Weight Bed scale Bed scale Measurement Method Physical Exam: Gen: NAD HEENT: normal Lungs: clear to auscultation, normal resp. effort Heart: RRR, S1, S2, 1/6 systolic murmur Abdomen: Soft, nontender, no masses Extremities: No clubbing, cyanosis, or edema. Neuro: Awake and alert, cranial nerves intact Current Medications: Current Medications Sig/Renee Start time Last Medication Dose Route Stop Time Status Admin Amlodipine Besylate 5 MG DAILY 09/01 899 AC 09/01 PO 0831 Apixaban 2.5 MG BID 08/31 09 AC 09/01 PO 0830 Atorvastatin Calcium 80 MG 1700 08/31 1700 AC 08/31 PO 1712 Ceftriaxone Sodium 1,000 MG 0100 09/01 0100 AC 09/01 IV 0209 Ferrous Sulfate 325 MG DAILY 08/31 09 AC 09/01 PO 0830 Losartan Potassium 50 MG QPM 08/31 2099 AC 08/31 PO 2011 Pantoprazole Sodium 40 MG DAILY 08/31 09 AC 09/01 IV 0828 Results Last 48 Hrs of Labs/Mics: Laboratory Tests 09/01/17 0720: Anion Gap 8, Estimated GFR > 60, BUN/Creatinine Ratio 30.0 H, CBC w Diff NO MAN DIFF REQ, RBC 2.90 L, MCV 91.5, MCH 31.1 H, MCHC 34.0, RDW 13.4, MPV 10.8 H, Gran % 71.5, Lymphocytes % 19.9 L, Monocytes % 6.0, Eosinophils % 2.3, Basophils % 0.3, Absolute Granulocytes 5.1, Absolute Lymphocytes 1.4, Absolute Monocytes 0.4, Absolute Eosinophils 0.2, Absolute Basophils 0 09/01/17 0600: Prot Electrophoresis Pending, Total Protein (PEP) Pending, Albumin % (PEP) Pending, Lovqf-[id number] Pending, Npssy-4-Yqezcinen Pending, Eptb-7-Qszlyydk Pending, Pjui-9-Oktfttpk Pending, Gamma Globulins Pending, Abnorm Protein Band 1 Pending, Abnorm Protein Band 2 Pending, Abnorm Protein Band 3 Pending, IgA Pending, IgM Pending, Ref Lab Test Result Pending, Serum IgG Pending 08/31/17 0630: Anion Gap 9, Estimated GFR 59 L, BUN/Creatinine Ratio 34.4 H, Magnesium 1.7, CBC w Diff NO MAN DIFF REQ, RBC 2.87 L, MCV 92.6, MCH 31.6 H, MCHC 34.1, RDW 13.7, MPV 11.7 H, Gran % 68.1, Lymphocytes % 24.5, Monocytes % 4.2, Eosinophils % 3.0, Basophils % 0.2, Absolute Granulocytes 5.1, Absolute Lymphocytes 1.8, Absolute Monocytes 0.3, Absolute Eosinophils 0.2, Absolute Basophils 0 08/30/172150: Lactic Acid Cancelled 08/30/17 1945: Urine Opiates Screen 265, Methadone Screen < 40, Barbiturate Screen < 60, Ur Phencyclidine Scrn < 6.00, Amphetamines Screen < 100, U Benzodiazepines Scrn 96, Urine Cocaine Screen < 50, Urine Cannabis Screen < 5.00, Urine Color YEL, Urine Clarity TURBD H, Urine pH 8.5 H, Ur Specific [place] 1.010, Urine Protein 100 H, Urine Ketones NEG, Urine Nitrite NEG, Urine Bilirubin NEG, Urine Urobilinogen 0.2, Ur Leukocyte Esterase LARGE H, Ur Microscopic SEDIMENT EXAMINED, Urine RBC 1-3, Urine WBC 10-15 H, Ur Epithelial Cells FEW, Urine Bacteria PACKD H, Urine Hemoglobin TRACE-INTACT, Urine Glucose NEG 08/30/17 1820: Anion Gap 7, Estimated GFR 52 L, BUN/Creatinine Ratio 31.0 H, Glucose 91, Lactic Acid 0.5 L, Calcium 8.6, Total Bilirubin 0.5, AST 22, ALT 23, Alkaline Phosphatase 104, Troponin I < 0.01, Total Protein 5.3 L, Albumin 2.8 L, Globulin 2.5, Albumin/Globulin Ratio 1.1, PT 15.5 H, INR 1.42 H, APTT 30, CBC w Diff NO MAN DIFF REQ, RBC 3.11 L, MCV 92.9, MCH 31.3 H, MCHC 33.7, RDW 13.8, MPV 11.0 H, Gran % 58.9, Lymphocytes % 30.7, Monocytes % 6.9, Eosinophils % 3.1 , Basophils % 0.4, Absolute Granulocytes 4.2, Absolute Lymphocytes 2.2, Absolute Monocytes 0.5, Absolute Eosinophils 0.2, Absolute Basophils 0 Microbiology 08/30 1944 URINE ROUT: Urine Culture - COMP PROTEUS MIRABILIS KLEBSIELLA PNEUMONIAE Assessment/Plan Assessment/Plan 1. Altered mental status of unclear etiology; possible response to Narcan 2. 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 3. Recent admission for AMS/hypoglycemia with concern for exogenous insulin administration 4. UTI 5. Dementia 6. History of prior CVA 7. Positive urine toxicology 8. Hypertension 9. Sinus bradycardia in the 40s on admission, now improved Plan: * Continue Eliquis * Continue losartan * Monitor for further bradycardia on telemetry. Permanent pacemaker may be a consideration at some point. Continue telemetry? Yes
[2017-09-01 14:00] VITALS: BP 140/60
[2017-09-01 20:00] VITALS: BP 148/70
--- NOTE | 2017-09-01 22:06 | RADIOLOGY REPORT ---
EXAMINATION: XR BONE SURVEY CLINICAL INFORMATION: Lytic bone lesion concerning for multiple myeloma. Skeletal survey. COMPARISON: CT scan of the abdomen and pelvis dated 08/30/2017. TECHNIQUE: Lateral view of the skull. Lateral view of the cervical spine and frontal views of the thoracic and lumbar spine. Frontal view of the pelvis. Frontal view of both humerus and forearm. Frontal view of the femur and lower leg bilaterally. Frontal view of the chest performed on 2 images FINDINGS: Skull: No lytic or destructive bone lesion. Included paranasal sinuses are unremarkable. Cervical, thoracic and lumbar spine and pelvis: Evaluation of the cervical spine is limited due to overlapping soft tissues. C1-C3/4 are visualized and demonstrate diffuse osteopenia. There is a slightly mottled appearance of the vertebral bodies in the cervical spine, including C2, C3 and C4, unclear if related to subtle lytic lesions versus marked osteopenia and bone demineralization. There is diffuse osteopenia throughout the cervical, thoracic and lumbar spine and the pelvis. No definite focal lytic or destructive bone lesion is seen in the thoracic or lumbar spine, though evaluation is limited due to overlapping structures, especially in the abdomen and pelvis. A gastrostomy tube is in place. Densely calcified uterine fibroid is again seen. Large amount of fecal material is seen throughout the colon with rectal fecal impaction. Advanced atherosclerotic calcifications of the aortoiliac vessels and multiple pelvic phleboliths seen. Bilateral humerus and forearms: Marked osteopenia. In the distal right and left radius and ulna, mottled lucencies are seen. Bilateral femur and lower leg: Diffuse osteopenia. No acute fracture or dislocation. There are subtle permeative type lucencies seen throughout the femoral shaft on the left side and to a lesser extent in the right side. Similarly, diffuse permeative type lucencies are seen in the tibia and fibula bilaterally. Findings are indeterminate and can be seen with multiple myeloma or other infiltrative diseases. Chest x-ray: The cardiomediastinal silhouette is enlarged. Calcification, ectasia and tortuosity of the aorta is seen. Low lung volumes are seen with slight coarsening of the bronchovascular lung markings. Diffuse osteopenia of the bony thorax is seen without definite lytic lesion appreciated. IMPRESSION: Difficult exam given the degree of extensive bone demineralization/osteopenia. Subtle permeative lucencies are seen in the upper cervical spine as well as in the forearms, femurs, tibia and fibula bilaterally. Findings raise the suspicion of multiple myeloma or other bony metastatic disease.
[2017-09-01 22:29] VITALS: BP 166/90
[2017-09-02 07:06] VITALS: BP 150/68
--- NOTE | 2017-09-02 07:12 | PN- Housestaff ---
Massimo Adam 09/02/17 0710: Subjective Follow-up For: 1. Unresponsive episode, altered mental status 2. Acute cystitis without hematuria 3. Suspicion of exogenous administration of drugs ?opiates or benzos 4. Hypotension resolved 5. Hypoxia 2/2 pleural effusion ?drugs, no e/o pneumonia 6. Lytic bone lesions concerning for MM 7. Chronic sinus bradycardia Complaints: no complaints Tele-Events Since Last Visit: Normal sinus rhythm, heart rate in between 51-63, no overnight telemetry events. Vitals remained stable. Afebrile Subjective: She was comfortable this morning. He does not have any new concerns. She stated that she did not have any chest pain, shortness of breath, or any pain. Stated that she had breakfast in the morning. Review of Systems Constitutional: Reports: see HPI. Objective Last 24 Hrs of Vital Signs/I&O Vital Signs Date Time Temp Pulse Resp B/P B/P Pulse O2 O2 Flow FiO2 Mean Ox Delivery Rate 09/02 0706 97.7 52 18 150/68 98 Room Air 09/01 2241 Room Air 09/01 2229 99.4 63 19 166/90 95 09/01 2008 60 148/70 09/01 2000 97.7 60 22 148/70 97 Room Air 09/01 1400 97.8 68 16 140/60 95 09/01 0831 65 146/74 Intake & Output 09/02 0800 09/02 0000 09/01 1600 Intake Total 0 480 150 Output Total 350 250 Balance 0 130 -100 Intake, Oral 0 480 150 Number 0 0 Bowel Movements Output, Urine 350 250 Patient 149 lb Weight Physical Exam General Appearance: No Acute Distress Other Physical Findings: General Exam: AAOx1, No acute distress, Skin: No rashes, no breakdown;HEENT: PERRLA, EOMI;Neck: Supple, No JVD; No cervical lymphadenopathy;CVS: Reg Rate, Normal S1,S2, No MGR;Resp: Normal air entry, no ronchi/rales;Abdomen: Soft, No tenderness, Normal Bowel Sounds;Neuro: Normal Speech, Strength 5/5 on right upper and lower extremities, 3/5 left upper and lower extremities, Sensation couldnt be tested, CN III-XII NL, Reflexes 2+;Extremities: No cyanosis, no pedal edema Current Medications: Current Medications Sig/Renee Start time Last Medication Dose Route Stop Time Status Admin Amlodipine Besylate 5 MG DAILY 09/01 09 AC 09/01 PO 0831 Apixaban 2.5 MG BID 08/31 09 AC 09/01 PO 2007 Atorvastatin Calcium 80 MG 1700 08/31 1700 AC 09/01 PO 1843 Ceftriaxone Sodium 1,000 MG 0100 09/01 0100 DC 09/01 IV 0209 Ferrous Sulfate 325 MG DAILY 08/31 09 AC 09/01 PO 0830 Losartan Potassium 50 MG QPM 08/31 2100 AC 09/01 PO 2007 Pantoprazole Sodium 40 MG DAILY 08/31 09 AC 09/01 IV 0828 Last 24 Hrs of Lab/Klaus Results Last 24 Hrs of Labs/Mics: Laboratory Tests 09/01/17 0720: Anion Gap 8, Estimated GFR > 60, BUN/Creatinine Ratio 30.0 H, CBC w Diff NO MAN DIFF REQ, RBC 2.90 L, MCV 91.5, MCH 31.1 H, MCHC 34.0, RDW 13.4, MPV 10.8 H, Gran % 71.5, Lymphocytes % 19.9 L, Monocytes % 6.0, Eosinophils % 2.3, Basophils % 0.3, Absolute Granulocytes 5.1, Absolute Lymphocytes 1.4, Absolute Monocytes 0.4, Absolute Eosinophils 0.2, Absolute Basophils 0 Assessment/Plan Assessment: 86 yo F with h/o paroxysmal Aflutter on Eliquis, HTN, ENEDINA, 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 Brought back to [facility] on 08/30 by EMS for unresponsive and was noted to be hypotensive on field per EMS. Patient was not hypoglycemic on admission. Received 2 doses on Narcan in the ER, with no immediate effect, but after about 5-7 mins patient was awake and verbal. Assessment and plan: 1. Unresponsive episode, altered mental status 2. Acute cystitis without hematuria 3. Suspicion of exogenous administration of drugs ?opiates or benzos 4. Hypotension resolved 5. Hypoxia 2/2 pleural effusion ?drugs, no e/o pneumonia 6. Lytic bone lesions concerning for MM 7. Chronic sinus bradycardia Plan - Monitor on telemetry - Neurochecks Q4, 1:1 sitter - Avoid opiates/ narcotics/ benzos or any sedatives -Prelim blood cultures show no growth - IV ceftriaxone for UTI, UC growing klebsiella pnuemonia and Proteus mirabilis - Social work consult - Oncology on board f/up UPEP/SPEP/immunoglobulin levels (IgA, IgM, and IgG) - Skeletal survey s/o multiple myeloma - Monitor accucheks for hypoglycemia - Continue home meds of losartan and norvasc. Would increase the dose of losartan, if needed. - As per the family's request, the urine sample to be sent for Supply And Distribution Manager analysis for characterizing benzos+opiates. DVT ppx Eliquis. Full code. Pain pathway Problem List: 1. S/P percutaneous endoscopic gastrostomy (PEG) tube placement 2. Altered mental status 3. Hypotension 4. Afib 5. Altered mental status 6. Hypoglycemia Pain Ratin Pain Location: back Pain Goal: Pain 4 or less Pain Plan: tylenol prn Tomorrow's Labs & Rationales: cbc bep Ernesto Chairez 09/02/17 1054: Attending MD Review Statement Attending Statement Attending MD Statement: examined this patient, discuss w/resident/PA/BUS MECHANIC, agreed w/resident/PA/BUS MECHANIC, discussed with family, reviewed EMR data (avail), discussed with nursing, discussed with case mgmt, reviewed images, amended to note Attending Assessment/Plan: Patient seen/examined bedside. Patient had skeletal survey which is concerned for multpile myeloma. Hematology follwoing. Multiple myeloma work up as per hematology. Continue rest of care. Discontinue telemetry if ok with cardiology. SW follwoing.
--- NOTE | 2017-09-02 10:12 | PN- Hematology ---
Subjective Subjective: She denies any new symptoms. She has no new pain. She has no fever or chills. Review of Systems: Limited due to mental status and language Cardiovascular: Reports: chest pain. Abdomen: Reports: abdominal pain Musculoskeletal: Reports: back pain, joint pain, muscle pain. All Other Systems: Reviewed and Negative Objective Vital Signs and I&Os Vital Signs Date Time Temp Pulse Resp B/P B/P Pulse O2 O2 Flow FiO2 Mean Ox Delivery Rate 09/02 0943 97.7 52 18 150/68 09/02 0706 97.7 52 18 150/68 98 Room Air 09/01 2241 Room Air 09/01 2229 99.4 63 19 166/90 95 09/01 2008 60 148/70 09/01 2000 97.7 60 22 148/70 97 Room Air 09/01 1400 97.8 68 16 140/60 95 Intake & Output 09/02 1600 09/02 0800 09/02 0000 09/01 1600 09/01 0800 09/01 0000 Intake Total 0 480 150 120 360 Output Total 300 350 250 450 450 Balance -300 130 -100 -330 -90 Intake, Oral 0 480 150 120 360 Number 0 0 1 Bowel Movements Output, Urine 300 350 250 450 450 Patient 67.642 kg 69.541 kg Weight Weight Bed scale Measurement Method Physical Exam: General Appearance: no apparent distress, alert, awake Head: atraumatic, normal appearance Neck: supple Respiratory: normal breath sounds, chest non-tender, quiet respiration Cardiovascular: regular rate/rhythm Gastrointestinal: normal bowel sounds, soft, tenderness (PEG area) Extremities: no edema Neurologic/Psych: awake, alert, motor weakness (Left side), motor/sensory deficits (Left side) Skin: normal color, warm/dry Lymphatic: no anterior cervical sourav Current Medications: Current Medications Sig/Renee Start time Last Medication Dose Route Stop Time Status Admin Amlodipine Besylate 5 MG DAILY 09/01 09 AC 09/02 PO 942 Apixaban 2.5 MG BID 08/31 09 AC 09/02 PO 942 Atorvastatin Calcium 80 MG 1700 08/31 1700 AC 09/01 PO 1843 Ceftriaxone Sodium 1,000 MG 0100 09/01 0100 DC 09/01 IV 0209 Ferrous Sulfate 325 MG DAILY 08/31 0900 AC 09/02 PO 09 Losartan Potassium 50 MG QPM 08/31 2100 AC 09/01 PO 2008 Pantoprazole Sodium 40 MG DAILY 08/31 0900 AC 09/02 IV 0947 Results Recent Imaging Studies: Skeletal Survey 09/01/2017: Skull: No lytic or destructive bone lesion. Included paranasal sinuses are unremarkable. Cervical, thoracic and lumbar spine and pelvis: Evaluation of the cervical spine is limited due to overlapping soft tissues. C1-C3/4 are visualized and demonstrate diffuse osteopenia. There is a slightly mottled appearance of the vertebral bodies in the cervical spine, including C2, C3 and C4, unclear if related to subtle lytic lesions versus marked osteopenia and bone demineralization. There is diffuse osteopenia throughout the cervical, thoracic and lumbar spine and the pelvis. No definite focal lytic or destructive bone lesion is seen in the thoracic or lumbar spine, though evaluation is limited due to overlapping structures, especially in the abdomen and pelvis. A gastrostomy tube is in place. Densely calcified uterine fibroid is again seen. Large amount of fecal material is seen throughout the colon with rectal fecal impaction. Advanced atherosclerotic calcifications of the aortoiliac vessels and multiple pelvic phleboliths seen. Bilateral humerus and forearms: Marked osteopenia. In the distal right and left radius and ulna, mottled lucencies are seen. Bilateral femur and lower leg: Diffuse osteopenia. No acute fracture or dislocation. There are subtle permeative type lucencies seen throughout the femoral shaft on the left side and to a lesser extent in the right side. imilarly, diffuse permeative type lucencies are seen in the tibia and fibula bilaterally. Findings are indeterminate and can be seen with multiple myeloma or other infiltrative diseases. Chest x-ray: The cardiomediastinal silhouette is enlarged. Calcification,ectasia and tortuosity of the aorta is seen. Low lung volumes are seen with slight coarsening of the bronchovascular lung markings. Diffuse osteopenia of the bony thorax is seen without definite lytic lesion appreciated. IMPRESSION: Difficult exam given the degree of extensive bone demineralization/ osteopenia. Subtle permeative lucencies are seen in the upper cervical spine as well as in the forearms, femurs, tibia and fibula bilaterally. Findings raise the suspicion of multiple myeloma or other bony metastatic disease. Assessment/Plan Hematology Assessment/Recommendations: Ms. 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 Patient is unable to give history today. History obtained mainly through chart review. She presented with AMS and hypotension. She responded after receiving Narcan. Urine toxicology screening was noted to have opiates and benzos. She was noted to be anemic. CT of the abdomen and pelvis noted innumerable suggestion of innumerable tiny lytic bone lesions with endosteal scalloping in the visualized forearms and hands. These were concerning for possible multiple myeloma. Skeletal survey demonstrated diffuse osteopenia. There are subtle permeative lucencies in the upper cervical spine as well as in the forearms, femurs, tibia and fibula bilaterally. Findings raise the suspicion of multiple myeloma or other bony metastatic disease. SPEP, UPEP, serum free light chains, and immunoglobulins are pending. Calcium is normal . Anemia is stable. Renal function is normal. Vitamin B12 and folate have not been checked. It is unclear if she has MM. She will need continued workup. She may need PET scan for her bone findings. Given her mental status and clinical condition, it is unclear if she would be a candidate for intensive therapy. Lytic lesions: -Follow up SPEP, UPEP, immunoglobulin levels, and serum free light chains -Consider PET as outpatient or whole body MRI -Further work up may be done as outpatient Anemia: -Check vitamin B12 level -Check Folate level Please call [phone] with any questions or concerns. Problem List: 1. Bone lesion 2. Altered mental status 3. Symptomatic anemia
--- NOTE | 2017-09-02 13:25 | PN- Cardiology ---
Subjective Subjective: The patient is awake and alert. She is sitting up in bed having lunch with assistance. No chest pain. No palpitations. No diaphoresis. monitoring manager reveals intermittent sinus bradycardia in the 40s. Objective Vital Signs and I&Os Vital Signs Date Time Temp Pulse Resp B/P B/P Pulse O2 O2 Flow FiO2 Mean Ox Delivery Rate 09/02 0843 97.7 52 18 150/68 09/02 0706 97.7 52 18 150/68 98 Room Air 09/01 2241 Room Air 09/01 2229 99.4 63 19 166/90 95 09/01 2008 60 148/70 09/01 2000 97.7 60 22 148/70 97 Room Air 09/01 1400 97.8 68 16 140/60 95 Intake & Output 09/02 1600 09/02 0800 09/02 0000 09/01 1600 09/01 0800 09/01 0000 Intake Total 0 480 150 120 360 Output Total 300 350 250 450 450 Balance -300 130 -100 -330 -90 Intake, Oral 0 480 150 120 360 Number 0 0 1 Bowel Movements Output, Urine 300 350 250 450 450 Patient 149 lb 153 lb Weight Weight Bed scale Measurement Method Physical Exam: Gen: NAD HEENT: normal Lungs: clear to auscultation, normal resp. effort Heart: RRR, S1, S2, 1/6 systolic murmur Abdomen: Soft, nontender, no masses Extremities: No clubbing, cyanosis, or edema. Neuro: Awake and alert, cranial nerves intact Current Medications: Current Medications Sig/Renee Start time Last Medication Dose Route Stop Time Status Admin Amlodipine Besylate 5 MG DAILY 09/01 899 AC 09/02 PO 942 Apixaban 2.5 MG BID 08/31 899 AC 09/02 PO 0943 Atorvastatin Calcium 80 MG 1700 08/31 1700 AC 09/01 PO 1843 Ceftriaxone Sodium 1,000 MG 0100 09/01 0100 DC 09/01 IV 0209 Ferrous Sulfate 325 MG DAILY 08/31 09 AC 09/02 PO 0943 Losartan Potassium 50 MG QPM 08/31 2100 AC 09/01 PO 2007 Pantoprazole Sodium 40 MG DAILY 08/31 09 AC 09/02 IV 0947 Results Last 48 Hrs of Labs/Mics: Laboratory Tests 09/01/17 0720: Anion Gap 8, Estimated GFR > 60, BUN/Creatinine Ratio 30.0 H, CBC w Diff NO MAN DIFF REQ, RBC 2.90 L, MCV 91.5, MCH 31.1 H, MCHC 34.0, RDW 13.4, MPV 10.8 H, Gran % 71.5, Lymphocytes % 19.9 L, Monocytes % 6.0, Eosinophils % 2.3, Basophils % 0.3, Absolute Granulocytes 5.1, Absolute Lymphocytes 1.4, Absolute Monocytes 0.4, Absolute Eosinophils 0.2, Absolute Basophils 0 09/01/17 0600: Prot Electrophoresis Pending, Total Protein (PEP) Pending, Albumin % (PEP) Pending, [id number] Pending, [id number] Pending, [id number] Pending, [id number] Pending, Gamma Globulins Pending, Abnorm Protein Band 1 Pending, Abnorm Protein Band 2 Pending, Abnorm Protein Band 3 Pending, IgA Pending, IgM Pending, Ref Lab Test Result Pending, Serum IgG Pending Assessment/Plan Assessment/Plan 1. Altered mental status of unclear etiology; possible response to Narcan 2. 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 3. Recent admission for AMS/hypoglycemia with concern for exogenous insulin administration 4. UTI 5. Dementia 6. History of prior CVA 7. Positive urine toxicology 8. Hypertension 9. Sinus bradycardia, intermittently in the 40's Plan: * Continue Eliquis * Continue losartan * Monitor for further bradycardia on telemetry. Permanent pacemaker may be a consideration at some point. Continue telemetry? Yes
[2017-09-02 14:49] VITALS: BP 194/68
[2017-09-02 15:25] VITALS: BP 194/66
[2017-09-02 16:37] VITALS: BP 178/80
[2017-09-02 21:18] VITALS: BP 182/80
[2017-09-03 01:30] VITALS: BP 132/60
[2017-09-03 06:16] VITALS: BP 170/76
--- NOTE | 2017-09-03 07:24 | PN- Housestaff ---
Massimo Adam 09/03/17 0723: Subjective Follow-up For: 1. Unresponsive episode, altered mental status 2. Acute cystitis without hematuria 3. Suspicion of exogenous administration of drugs ?opiates or benzos 4. Hypotension resolved 5. Hypoxia 2/2 pleural effusion ?drugs, no e/o pneumonia 6. Lytic bone lesions concerning for MM 7. Chronic sinus bradycardia Complaints: no complaints Tele-Events Since Last Visit: NSR, HR 60-67. No overnight telemetry events. Subjective: She was comfortable this am. No new concerns. She stated that she didnt have any chest pain, shortenss of breath, or palpitations. She contined to have roth catheter, which could be removed. She has been eating well, and continues to be in good mood. Vitals remained stable. Since benzodiazepines, opiates were mildly elevated on U tox, it was suspected that this patient likely got some benzodiazepines and opiates that were not prescribed to her. Elderly protection services was involved. The patient's family brought some evidence/literature stating that sertraline could cause false positive results by cross reacting with benzodiazepines or opiate assay substrates. Discussed with the blood or blood bank technician at the lab, who informed us that they perform immunoassays and not gas chromatography in the hospital. Ordered grey inspector/gas chromatography analysis to be sent out to [facility]. Literature/evidence in patient's chart. It is still to be ascertained, if this patient received benzodiazepine/opiates which were not prescribed to her. Family meeting was set for 1 p.m. on 09/04/2017. As per the pharmacist at [facility] pharmacy, last prescription refill was done in May 2017 for 30 tablets only. Review of Systems Constitutional: Reports: see HPI. Objective Last 24 Hrs of Vital Signs/I&O Vital Signs Date Time Temp Pulse Resp B/P B/P Pulse O2 O2 Flow FiO2 Mean Ox Delivery Rate 09/03 0616 98.2 69 18 170/76 98 Room Air 09/03 0130 132/60 09/02 2223 75 180/74 09/02 2118 98.2 68 18 182/80 99 Room Air 09/02 1637 178/80 09/02 1558 61 194/66 09/02 1525 61 194/66 09/02 1449 98.1 60 18 194/68 97 Room Air 09/02 0943 97.7 52 18 150/68 Intake & Output 09/03 0800 09/03 0000 09/02 1600 Intake Total 240 240 120 Output Total 200 425 550 Balance 40 -185 -430 Intake, Oral 240 240 120 Output, Urine 200 425 550 Patient 146 lb Weight Physical Exam General Appearance: No Acute Distress Other Physical Findings: General Exam: AAOx1, No acute distress, Skin: No rashes, no breakdown;HEENT: PERRLA, EOMI;Neck: Supple, No JVD; No cervical lymphadenopathy;CVS: Reg Rate, Normal S1,S2, No MGR;Resp: Normal air entry, no ronchi/rales;Abdomen: Soft, No tenderness, Normal Bowel Sounds;Neuro: Normal Speech, Strength 5/5 on right upper and lower extremities, 3/5 left upper and lower extremities, Sensation couldnt be tested, CN III-XII NL, Reflexes 2+;Extremities: No cyanosis, no pedal edema Current Medications: Current Medications Sig/Renee Start time Last Medication Dose Route Stop Time Status Admin Amlodipine Besylate 5 MG DAILY 09/01 0900 AC 09/02 PO 0943 Apixaban 2.5 MG BID 08/31 0900 AC 09/02 PO 2223 Atorvastatin Calcium 80 MG 1700 08/31 1700 AC 09/02 PO 1706 Ferrous Sulfate 325 MG DAILY 08/31 0900 AC 09/02 PO 0943 Hydralazine HCl 5 MG ONCE ONE 09/02 1545 DC 09/02 IV 09/02 1546 1558 Losartan Potassium 50 MG QPM 08/31 2100 AC 09/02 PO 2223 Pantoprazole Sodium 40 MG DAILY 08/31 0900 AC 09/02 IV 0947 Last 24 Hrs of Lab/Klaus Results Last 24 Hrs of Labs/Mics: Laboratory Tests 09/03/17 0610: Sodium Pending, Potassium Pending, Chloride Pending, Carbon Dioxide Pending, Anion Gap Pending, BUN Pending, Creatinine Pending, BUN/Creatinine Ratio Pending , CBC w Diff Pending, WBC Pending, RBC Pending, Hgb Pending, Hct Pending, MCV Pending, MCH Pending, MCHC Pending, RDW Pending, Plt Count Pending, MPV Pending Assessment/Plan Assessment: Ms Landaverde is an 86 year old woman w/ a PMHx of paroxysmal Aflutter on Eliquis, HTN, ENEDINA, 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 Brought back to [facility] on 08/30 by EMS for unresponsive and was noted to be hypotensive on field per EMS. Patient was not hypoglycemic on admission. Received 2 doses on Narcan in the ER, with no immediate effect, but after about 5-7 mins patient was awake and verbal. Assessment and plan: 1. Unresponsive episode, altered mental status 2. Acute cystitis without hematuria 3. Suspicion of exogenous administration of drugs ?opiates or benzos 4. Hypotension resolved 5. Hypoxia 2/2 pleural effusion ?drugs, no e/o pneumonia 6. Lytic bone lesions concerning for MM 7. Chronic sinus bradycardia Plan - Monitor on telemetry, given her history of bradycardia. There is a consideration for pacemaker at somepoint. - Continue 1:1 sitter - Try to avoid any use of opiates/ narcotics/ benzos in view of her AMS. - Prelim blood cultures show no growth - IV ceftriaxone for UTI, UC growing klebsiella pnuemonia and Proteus mirabilis. For some reason, the abx were discontinued; and would continue the course of abx given her presentation as AMS. - Social work consult - Oncology following. Plan to discuss w/ the Hem-Onc, if we should get a bone scan to rule out any metastatic causes, ? colon. - Skeletal survey s/o multiple myeloma. SPEP is negative for MM. Follow up FLC assay. - Monitor accucheks for hypoglycemia. - Continue home meds of losartan and norvasc. Would increase the dose of losartan, if needed. - As per the family's request, the urine sample to be sent for Traffic Representative analysis for characterizing benzos+opiates. DVT ppx Eliquis. Full code. Pain pathway Problem List: 1. Bone lesion 2. Altered mental status 3. Hypertension 4. Afib Pain Ratin Pain Location: back Pain Goal: Pain 4 or less Pain Plan: tylenol prn Tomorrow's Labs & Rationales: cbc bep MihaelaErnesto nunez 09/03/17 1055: Attending Review Statement Attending Statement Attending MD Statement: examined this patient, discuss w/resident/PA/A P SUPERVISOR, agreed w/resident/PA/A P SUPERVISOR, discussed with family, reviewed EMR data (avail), discussed with nursing, discussed with case mgmt, reviewed images, amended to note Attending Assessment/Plan: Patient no acute distress. Monitor bp. Abnormal lytic lesions on bone work up as per hematology. Continue telemetry. Da roth. Continue decubiti precuations. Fall precautions. SW follow up. Arrange family meeting.
[2017-09-03 07:58] LABS: ABSOLUTE BASOPHIL COUNT 0 /CUMM (0.0-0.2); ABSOLUTE EOSINOPHIL COUNT 0.2 /CUMM (0.0-0.7); ABSOLUTE LYMPH COUNT 1.9 /CUMM (1.2-3.4); ABSOLUTE MONOCYTE COUNT 0.4 /CUMM (0.10-0.60); BASOPHIL % 0.4 % (0.0-2.0); EOSINOPHIL % 3.2 % (0-5); GRANULOCYTE % 60.6 % (42.2-75.2); HEMATOCRIT 27.2 % (37-47); MEAN CORPUSCULAR HGB 30.7 PG (27.0-31.0); MEAN CORPUSCULAR HGB CONC 33.5 G/DL (33.0-37.0); MEAN CORPUSCULAR VOLUME 91.6 FL (81.0-99.0); MEAN PLATELET VOLUME 11.1 FL (7.4-10.4); PLATELET COUNT 145 /CUMM (130-400); RBC DISTRIBUTION WIDTH 13.7 % (11.5-14.5); RED BLOOD CELL CT 2.97 /CUMM (4.20-5.40); WHITE BLOOD CELL COUNT 6.6 /CUMM (4.8-10.8)
--- NOTE | 2017-09-03 11:12 | PN- Cardiology ---
Subjective Subjective: No obvious clinical change. The patient remains in normal sinus rhythm and sinus bradycardia on the monitor. Telemetry reviewed. More verbal today. Objective Vital Signs and I&Os Vital Signs Date Time Temp Pulse Resp B/P B/P Pulse O2 O2 Flow FiO2 Mean Ox Delivery Rate 09/03 0616 98.2 69 18 170/76 98 Room Air 09/03 0130 132/60 09/02 2223 75 180/74 09/02 2118 98.2 68 18 182/80 99 Room Air 09/02 1637 178/80 09/02 1558 61 194/66 09/02 1525 61 194/66 09/02 1449 98.1 60 18 194/68 97 Room Air Intake & Output 09/03 1600 09/03 0800 09/03 0000 09/02 1600 09/02 0800 09/02 0000 Intake Total 240 240 120 0 480 Output Total 200 425 550 300 350 Balance 40 -185 -430 -300 130 Intake, Oral 240 240 120 0 480 Number 0 0 Bowel Movements Output, Urine 200 425 550 300 350 Patient 146 lb 149 lb Weight Physical Exam: General Appearance: well developed/nourished, alert, awake, oriented Head: normal HEENT: Normal Neck: supple, JVP normal, carotid upstrokes normal bilaterally, no masses or thyromegaly Respiratory: chest non-tender, clear to auscultation and percussion bilaterally Cardiovascular: regular rate/rhythm, normal S1, S2, 1-2/6 systolic murmur Abdomen: normal bowel sounds, soft, non-tender Extremities: normal inspection, no significant edema Vascular: Pulses are 2+ and equal bilaterally Neurologic: Grossly normal/nonfocal Current Medications: Current Medications Sig/Renee Start time Last Medication Dose Route Stop Time Status Admin Amlodipine Besylate 5 MG DAILY 09/01 899 AC 09/03 PO 0837 Apixaban 2.5 MG BID 08/31 09 AC 09/03 PO 0837 Atorvastatin Calcium 80 MG 1700 08/31 1700 AC 09/02 PO 1706 Ferrous Sulfate 325 MG DAILY 08/31 09 AC 09/03 PO 0837 Hydralazine HCl 5 MG ONCE ONE 09/02 1545 DC 09/02 IV 09/02 1546 1558 Losartan Potassium 50 MG QPM 08/31 2100 AC 09/02 PO 2223 Pantoprazole Sodium 40 MG DAILY 08/31 09 AC 09/03 IV 0840 Results Last 48 Hrs of Labs/Mics: Laboratory Tests 09/03/17 0610: Anion Gap 9, Estimated GFR > 60, BUN/Creatinine Ratio 20.0, Vitamin B12 632, Folate 18.9, CBC w Diff NO MAN DIFF REQ, RBC 2.97 L, MCV 91.6, MCH 30.7, MCHC 33.5, RDW 13.7, MPV 11.1 H, Gran % 60.6, Lymphocytes % 29.1, Monocytes % 6.7, Eosinophils % 3.2, Basophils % 0.4, Absolute Granulocytes 4.0, Absolute Lymphocytes 1.9, Absolute Monocytes 0.4, Absolute Eosinophils 0.2, Absolute Basophils 0 Assessment/Plan Assessment/Plan Assessment: 1. Altered mental status of unclear etiology; possible response to Narcan 2. 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 3. Recent admission for AMS/hypoglycemia with concern for exogenous insulin administration 4. UTI 5. Dementia 6. History of prior CVA 7. Positive urine toxicology 8. Hypertension 9. Sinus bradycardia, intermittently in the 40's Plan: * Continue Eliquis * Continue losartan * Continue to monitor for further bradycardia on telemetry. Permanent pacemaker may be a consideration at some point. However, as previously noted, the patient 's family is reluctant to consider this at the present time. Continue telemetry? Yes
[2017-09-03 14:53] VITALS: BP 150/78
[2017-09-03 21:36] VITALS: BP 140/80
[2017-09-04 06:50] VITALS: BP 140/64
--- NOTE | 2017-09-04 07:30 | PN- Housestaff ---
Massimo Adam 09/04/17 0722: Subjective Follow-up For: 1. Unresponsive episode, altered mental status 2. Acute cystitis without hematuria 3. Suspicion of exogenous administration of drugs ?opiates or benzos 4. Hypotension resolved 5. Hypoxia 2/2 pleural effusion ?drugs, no e/o pneumonia 6. Lytic bone lesions concerning for MM 7. Chronic sinus bradycardia Complaints: no complaints Tele-Events Since Last Visit: NSR, bradycardia. No overnight tele events recorded. Subjective: She was comfortable this am. No new complaints. Vitals stable overnight. Review of Systems Constitutional: Reports: see HPI. Objective Last 24 Hrs of Vital Signs/I&O Vital Signs Date Time Temp Pulse Resp B/P B/P Pulse O2 O2 Flow FiO2 Mean Ox Delivery Rate 09/04 0650 97.7 54 18 140/64 98 Room Air 09/03 2136 98.4 67 20 140/80 99 Room Air 09/03 2026 76 140/80 09/03 1453 98.6 71 18 150/78 100 Room Air Intake & Output 09/04 0800 09/04 0000 09/03 1600 Intake Total 120 120 860 Output Total 100 Balance 120 120 760 Intake, Oral 120 120 860 Number 1 Bowel Movements Output, Urine 100 Patient 145 lb 146 lb Weight Weight Bed scale Measurement Method Physical Exam General Appearance: No Acute Distress Other Physical Findings: General Exam: AAOx1, No acute distress, Skin: No rashes, no breakdown;HEENT: PERRLA, EOMI;Neck: Supple, No JVD; No cervical lymphadenopathy;CVS: Reg Rate, Normal S1,S2, No MGR;Resp: Normal air entry, no ronchi/rales;Abdomen: Soft, No tenderness, Normal Bowel Sounds;Neuro: Normal Speech, Strength 5/5 on right upper and lower extremities, 3/5 left upper and lower extremities, Sensation intact, CN III-XII NL, Reflexes 2+;Extremities: No cyanosis, no pedal edema Current Medications: Current Medications Sig/Renee Start time Last Medication Dose Route Stop Time Status Admin Amlodipine Besylate 5 MG DAILY 09/01 0900 AC 09/03 PO 0837 Apixaban 2.5 MG BID 08/31 0900 AC 09/03 PO 202 Atorvastatin Calcium 80 MG 1700 08/31 1700 AC 09/03 PO 1728 Ceftriaxone Sodium 1,000 MG DAILY 09/03 1530 AC 09/03 IV 1637 Ferrous Sulfate 325 MG DAILY 08/31 0900 AC 09/03 PO 0837 Losartan Potassium 50 MG QPM 08/31 2100 AC 09/03 PO 2027 Pantoprazole Sodium 40 MG DAILY 08/31 0900 AC 09/03 IV 0840 Last 24 Hrs of Lab/Klaus Results Last 24 Hrs of Labs/Mics: Laboratory Tests 09/04/17 0621: Sodium Pending, Potassium Pending, Chloride Pending, Carbon Dioxide Pending, Anion Gap Pending, BUN Pending, Creatinine Pending, BUN/Creatinine Ratio Pending , CBC w Diff Pending, WBC Pending, RBC Pending, Hgb Pending, Hct Pending, MCV Pending, MCH Pending, MCHC Pending, RDW Pending, Plt Count Pending, MPV Pending Assessment/Plan Assessment: 86 yo F with h/o paroxysmal Aflutter on Eliquis, HTN, ENEDINA, 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 Brought back to [facility] on 08/30 by EMS for unresponsive and was noted to be hypotensive on field per EMS. Patient was not hypoglycemic on admission. Received 2 doses on Narcan in the ER, with no immediate effect, but after about 5-7 mins patient was awake and verbal. Assessment and plan: 1. Unresponsive episode, altered mental status 2. Acute cystitis without hematuria 3. Suspicion of exogenous administration of drugs ?opiates or benzos 4. Hypotension resolved 5. Hypoxia 2/2 pleural effusion ?drugs, no e/o pneumonia 6. Lytic bone lesions concerning for MM 7. Chronic sinus bradycardia Plan - Monitor on telemetry - 1:1 sitter for safety. - Avoid opiates/ narcotics/ benzos or any sedatives -Prelim blood cultures show no growth - IV ceftriaxone for UTI, UC growing klebsiella pnuemonia and Proteus mirabilis x 2 more days. - Social work consult - Hematology advising. SPEP not suggestive of MM, but has FLCs positive. Would have to rule out malignancy vs MM. Plan to get a bone scan. As per the bio medical technician, whol body bone scan could be done in the am ie 09/05. - Skeletal survey s/o multiple myeloma - Monitor accucheks for hypoglycemia - Continue home meds of losartan and norvasc. Would increase the dose of losartan, if needed. - As per the family's request, the urine sample to be sent for Program Production Specialist analysis for characterizing benzos+opiates. Await results - Plan for a family meeting - Discussed w/ psychiatrist who recommended the lexapro could be started in her, but might expect some mood effects given the change. Lexapro doesnt have any cross reactivity w/ assays, as per her research into this topic of cross reactivity of sertraline w/ benzos/opiates in an assay. - Arredondo cath has been dc'ed, but would have to re-insert given the need for collecting 24 hrs for the assay. DVT ppx Eliquis. Full code. Pain pathway Problem List: 1. Bone lesion 2. Hypertension 3. Altered mental status 4. Afib Pain Ratin Pain Location: back Pain Goal: Pain 4 or less Pain Plan: tylenol prn Tomorrow's Labs & Rationales: cbc bep Ernesto Chairez 09/04/17 1402: Attending MD Review Statement Attending Statement Attending MD Statement: examined this patient, discuss w/resident/PA/SANDER HAND, agreed w/resident/PA/SANDER HAND, discussed with family, reviewed EMR data (avail), discussed with nursing, discussed with case mgmt, reviewed images, amended to note Attending Assessment/Plan: Patient no acute distress. BP acceptable. Awake, alert. Abnormal lytic lesions on bone work up as per hematology. Continue telemetry. Continue antihypertensives. Continue decubiti precuations. Fall precautions. Spoke to daughter and pending urine drug testing. Maciej appreciated and sertaraline switched to Escitalopram 5 mg.
--- NOTE | 2017-09-04 07:41 | PN- Hematology ---
Subjective Subjective: She is sleeping this morning. She denies any pain. She denies any breathing difficulty. She does note that she is cold. Review of Systems: Limited due to mental status and language. Review of Systems Constitutional: Denies: fever. Cardiovascular: Denies: chest pain. Respiratory: Denies: short of breath. Gastrointestinal: Denies: abdominal pain. Musculoskeletal: Denies: back pain. Hematologic/Endocrine: Reports: see HPI. Objective Vital Signs and I&Os Vital Signs Date Time Temp Pulse Resp B/P B/P Pulse O2 O2 Flow FiO2 Mean Ox Delivery Rate 09/04 0650 97.7 54 18 140/64 98 Room Air 09/03 2136 98.4 67 20 140/80 99 Room Air 09/03 2026 76 140/80 09/03 1453 98.6 71 18 150/78 100 Room Air Intake & Output 09/04 0800 09/04 0000 09/03 1600 09/03 0800 09/03 0000 09/02 1600 Intake Total 120 120 860 240 240 120 Output Total 100 200 425 550 Balance 120 120 760 40 -185 -430 Intake, Oral 120 120 860 240 240 120 Number 1 Bowel Movements Output, Urine 100 200 425 550 Patient 65.771 kg 66.253 kg 66.253 kg Weight Weight Bed scale Measurement Method Physical Exam: General Appearance: no apparent distress, alert, awake Head: atraumatic, normal appearance Neck: supple Respiratory: normal breath sounds, chest non-tender, quiet respiration Cardiovascular: regular rate/rhythm Gastrointestinal: normal bowel sounds, soft, tenderness (PEG area) Extremities: no edema Neurologic/Psych: awake, alert, motor weakness (Left side), motor/sensory deficits (Left side, stable) Skin: normal color, warm/dry Lymphatic: no anterior cervical sourav Current Medications: Current Medications Sig/Renee Start time Last Medication Dose Route Stop Time Status Admin Amlodipine Besylate 5 MG DAILY 09/01 09 AC 09/03 PO 08 Apixaban 2.5 MG BID 08/31 09 AC 09/03 PO 2024 Atorvastatin Calcium 80 MG 1700 08/31 1700 AC 09/03 PO 172 Ceftriaxone Sodium 1,000 MG DAILY 09/03 1530 AC 09/03 IV 1637 Ferrous Sulfate 325 MG DAILY 08/31 0900 AC 09/03 PO 0837 Losartan Potassium 50 MG QPM 08/31 2100 AC 09/03 PO 2026 Pantoprazole Sodium 40 MG DAILY 08/31 0900 AC 09/03 IV 0840 Results Last 24 Hours of Lab Results: Laboratory Tests 09/04 06 Chemistry Sodium Pending Potassium Pending Chloride Pending Carbon Dioxide Pending Anion Gap Pending BUN Pending Creatinine Pending BUN/Creatinine Ratio Pending Hematology CBC w Diff Pending WBC Pending RBC Pending Hgb Pending Hct Pending MCV Pending MCH Pending MCHC Pending RDW Pending Plt Count Pending MPV Pending Recent Imaging Studies: Bone survey 09/01/2017: Difficult exam given the degree of extensive bone demineralization/osteopenia. Subtle permeative lucencies are seen in the upper cervical spine as well as in the forearms, femurs, tibia and fibula bilaterally. Findings raise the suspicion of multiple myeloma or other bony metastatic disease. Assessment/Plan Hematology Assessment/Recommendations: Ms. Landaverde is an 86-year-old female with paroxysmal atrial flutter on Eliquis, HTN, ENEDINA, 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 s/p G-tube, dementia, recurrent hypoglycemic episodes, history of DM who presented to the [facility] after found to be unresponsive and hypotensive. Patient is unable to give history today. History obtained mainly through chart review. She presented with AMS and hypotension. She responded after receiving Narcan. Urine toxicology screening was noted to have opiates and benzos. She was noted to be anemic. CT of the abdomen and pelvis noted innumerable suggestion of innumerable tiny lytic bone lesions with endosteal scalloping in the visualized forearms and hands. These were concerning for possible multiple myeloma. Skeletal survey demonstrated diffuse osteopenia. There are subtle permeative lucencies in the upper cervical spine as well as in the forearms, femurs, tibia and fibula bilaterally. Findings raise the suspicion of multiple myeloma or other bony metastatic disease. SPEP is unremarkable. Serum free light chain ratio is slightly elevated. Serum immunoglobulins are normal. Calcium is normal. Anemia is stable. Vitamin B12 and folate are normal. Renal function is normal. UPEP have not been sent yet. It is unclear if she has light chain disease. Bone scan may help evaluate bone lesion. She may need bone biopsy to confirm diagnosis. Lytic lesions: -Obtain UPEP -check bone scan -Further work up may be done as outpatient Anemia: -monitor for now -transfusion as needed Please call [phone] with any questions or concerns. Problem List: 1. Bone lesion 2. Altered mental status 3. Symptomatic anemia
[2017-09-04 08:32] LABS: ABSOLUTE BASOPHIL COUNT 0 /CUMM (0.0-0.2); ABSOLUTE EOSINOPHIL COUNT 0.2 /CUMM (0.0-0.7); ABSOLUTE GRANULOCYTE CT 4.3 /CUMM (1.4-6.5); ABSOLUTE MONOCYTE COUNT 0.4 /CUMM (0.10-0.60); BASOPHIL % 0.3 % (0.0-2.0); EOSINOPHIL % 3.2 % (0-5); GRANULOCYTE % 62.1 % (42.2-75.2); HEMATOCRIT 27.1 % (37-47); MEAN CORPUSCULAR HGB 30.6 PG (27.0-31.0); MEAN CORPUSCULAR HGB CONC 33.3 G/DL (33.0-37.0); MEAN CORPUSCULAR VOLUME 91.7 FL (81.0-99.0); MEAN PLATELET VOLUME 11.1 FL (7.4-10.4); PLATELET COUNT 144 /CUMM (130-400); RBC DISTRIBUTION WIDTH 13.8 % (11.5-14.5); RED BLOOD CELL CT 2.96 /CUMM (4.20-5.40); WHITE BLOOD CELL COUNT 6.9 /CUMM (4.8-10.8)
--- NOTE | 2017-09-04 08:38 | PN- Cardiology ---
Subjective Subjective: The patient is awake and alert. No chest pain. No palpitations. No nausea or vomiting. Telemetry monitoring reveals intermittent sinus bradycardia. Objective Vital Signs and I&Os Vital Signs Date Time Temp Pulse Resp B/P B/P Pulse O2 O2 Flow FiO2 Mean Ox Delivery Rate 09/04 0650 97.7 54 18 140/64 98 Room Air 09/03 2136 98.4 67 20 140/80 99 Room Air 09/03 202 76 140/80 09/03 1453 98.6 71 18 150/78 100 Room Air Intake & Output 09/04 1600 09/04 0800 09/04 0000 09/03 1600 09/03 0800 09/03 0000 Intake Total 120 120 860 240 240 Output Total 100 200 425 Balance 120 120 760 40 -185 Intake, Oral 120 120 860 240 240 Number 1 Bowel Movements Output, Urine 100 200 425 Patient 145 lb 146 lb 146 lb Weight Weight Bed scale Measurement Method Physical Exam: Gen: NAD HEENT: normal Lungs: clear to auscultation, normal resp. effort Heart: RRR, S1, S2, 1/6 systolic murmur Abdomen: Soft, nontender, no masses Extremities: No clubbing, cyanosis, or edema. Neuro: Awake and alert, cranial nerves intact Current Medications: Current Medications Sig/Renee Start time Last Medication Dose Route Stop Time Status Admin Amlodipine Besylate 5 MG DAILY 09/01 09 AC 09/03 PO 08 Apixaban 2.5 MG BID 08/31 09 AC 09/03 PO 2024 Atorvastatin Calcium 80 MG 1700 08/31 1700 AC 09/03 PO 1728 Ceftriaxone Sodium 1,000 MG DAILY 09/03 1530 AC 09/03 IV 1637 Ferrous Sulfate 325 MG DAILY 08/31 0900 AC 09/03 PO 0837 Losartan Potassium 50 MG QPM 08/31 2100 AC 09/03 PO 2026 Pantoprazole Sodium 40 MG DAILY 08/31 0900 AC 09/03 IV 0840 Results Last 48 Hrs of Labs/Mics: Laboratory Tests 09/04/17620: Sodium Pending, Potassium Pending, Chloride Pending, Carbon Dioxide Pending, Anion Gap Pending, BUN Pending, Creatinine Pending, BUN/Creatinine Ratio Pending , CBC w Diff NO MAN DIFF REQ, RBC 2.96 L, MCV 91.7, MCH 30.6, MCHC 33.3, RDW 13.8, MPV 11.1 H, Gran % 62.1, Lymphocytes % 28.3, Monocytes % 6.1, Eosinophils % 3.2, Basophils % 0.3, Absolute Granulocytes 4.3, Absolute Lymphocytes 2.0, Absolute Monocytes 0.4, Absolute Eosinophils 0.2, Absolute Basophils 0 09/03/17 0610: Anion Gap 9, Estimated GFR > 60, BUN/Creatinine Ratio 20.0, Vitamin B12 632, Folate 18.9, CBC w Diff NO MAN DIFF REQ, RBC 2.97 L, MCV 91.6, MCH 30.7, MCHC 33.5, RDW 13.7, MPV 11.1 H, Gran % 60.6, Lymphocytes % 29.1, Monocytes % 6.7, Eosinophils % 3.2, Basophils % 0.4, Absolute Granulocytes 4.0, Absolute Lymphocytes 1.9, Absolute Monocytes 0.4, Absolute Eosinophils 0.2, Absolute Basophils 0 Assessment/Plan Assessment/Plan 1. Altered mental status of unclear etiology; possible response to Narcan 2. 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 3. Recent admission for AMS/hypoglycemia with concern for exogenous insulin administration 4. UTI 5. Dementia 6. History of prior CVA 7. Positive urine toxicology 8. Hypertension 9. Sinus bradycardia, intermittently in the 40's Plan: * Continue Eliquis * Continue losartan * Monitor for further bradycardia on telemetry. Permanent pacemaker may be a consideration at some point, however the patient's family is reluctant to consider at this point. Continue telemetry? Yes
--- NOTE | 2017-09-04 10:23 | Cons- Psychiatry ---
Psychiatric Consult Date of Consult: 09/04/17 Reason for Consult: Review of antidepressant medication History of Present Illness: This 86-year-old female is taking sertraline for depression. Urine drug screen is positive for benzodiazepines and opiates. Medical team suspects exogenous administration. As sertraline can cause a false positive result for benzodiazepines on urine drug screen, the team requested that her antidepressant be changed. The patient has been taking 50 mrem of sertraline. Medication adherence as indicated by prescription refills is unclear. Allergies: Coded Allergies: NO KNOWN ALLERGIES (05/29/15) Past History Past Medical History Neurological: CVA, dementia EENT: cataracts, epistaxis Cardiovascular: AFIB, hypertension, hyperlipidemia, varicose veins Respiratory: pulmonary embolism (remote), pulmonary edema Gastrointestinal: constipation, ACID REFLUX Post PEG pandiverticulosis coli, L> R Hx colon adenoma Hepatic: NONE Renal: RIGHT RENAL ARTERY STENOSIS Musculoskeletal: chronic back pain, disk herniation, osteoarthritis, osteopenia Psychiatric: depression (post CVA) Endocrine: diabetes, obesity, vitamin D deficiency Blood Disorders: anemia Cancer(s): NONE MANAGER RISK MANAGEMENT/Reproductive: fibroid Past Surgical History Surgical History: BACK SURGERY Assessment/Plan Provisional Treatment Plan: Recommend switching from sertraline 50 mg to escitalopram 5 mg. According to the literature escitalopram has no effect on urine drug screens. Psychiatry will sign off for now. Thank you for consulting us on this patient.
[2017-09-04 14:54] VITALS: BP 132/74
[2017-09-04 21:51] VITALS: BP 156/68
[2017-09-05 06:53] VITALS: BP 118/54
--- NOTE | 2017-09-05 07:14 | PN- Housestaff ---
Massimo Adam 09/05/17 0713: Subjective Follow-up For: 1. Unresponsive episode, altered mental status 2. Acute cystitis without hematuria 3. Suspicion of exogenous administration of drugs ?opiates or benzos 4. Hypotension resolved 5. Hypoxia 2/2 pleural effusion ?drugs, no e/o pneumonia 6. Lytic bone lesions concerning for MM 7. Chronic sinus bradycardia Review of Systems Constitutional: Reports: see HPI. Objective Last 24 Hrs of Vital Signs/I&O Vital Signs Date Time Temp Pulse Resp B/P B/P Pulse O2 O2 Flow FiO2 Mean Ox Delivery Rate 09/05 0653 98.3 52 20 118/54 95 Room Air 09/04 2151 98.2 57 18 156/68 98 Room Air 09/04 2050 60 156/68 09/04 1454 97.6 48 16 132/74 96 09/04 1143 54 140/64 Intake & Output 09/05 0800 09/05 0000 09/04 1600 Intake Total 120 180 240 Output Total Balance 120 180 240 Intake, Oral 120 180 240 Number 1 Bowel Movements Patient 144 lb Weight Weight Bed scale Measurement Method Physical Exam General Appearance: No Acute Distress Other Physical Findings: General Exam: AAOx1, No acute distress, Skin: No rashes, no breakdown;HEENT: PERRLA, EOMI;Neck: Supple, No JVD; No cervical lymphadenopathy;CVS: Reg Rate, Normal S1,S2, No MGR;Resp: Normal air entry, no ronchi/rales;Abdomen: Soft, No tenderness, Normal Bowel Sounds;Neuro: Normal Speech, Strength 5/5 on right upper and lower extremities, 3/5 left upper and lower extremities, Sensation intact, CN III-XII NL, Reflexes 2+;Extremities: No cyanosis, no pedal edema Current Medications: Current Medications Sig/Renee Start time Last Medication Dose Route Stop Time Status Admin Amlodipine Besylate 5 MG DAILY 09/01 09 AC 09/04 PO 1143 Apixaban 2.5 MG BID 08/31 09 AC 09/04 PO 2049 Atorvastatin Calcium 80 MG 1700 08/31 1700 AC 09/04 PO 1714 Ceftriaxone Sodium 1,000 MG DAILY 09/03 1530 DC 09/04 IV 1144 Escitalopram Oxalate 5 MG DAILY 09/04 1055 AC 09/04 PO 1144 Ferrous Sulfate 325 MG DAILY 08/31 09 AC 09/04 PO 1143 Losartan Potassium 50 MG QPM 08/31 2100 AC 09/04 PO 2050 Pantoprazole Sodium 40 MG DAILY 08/31 0900 AC 09/04 IV 1144 Last 24 Hrs of Lab/Klaus Results Last 24 Hrs of Labs/Mics: Laboratory Tests 09/05/17 0607: Sodium Pending, Potassium Pending, Chloride Pending, Carbon Dioxide Pending, Anion Gap Pending, BUN Pending, Creatinine Pending, BUN/Creatinine Ratio Pending , CBC w Diff Pending, WBC Pending, RBC Pending, Hgb Pending, Hct Pending, MCV Pending, MCH Pending, MCHC Pending, RDW Pending, Plt Count Pending, MPV Pending Assessment/Plan Assessment: 86 yo F with h/o paroxysmal Aflutter on Eliquis, HTN, ENEDINA, 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 Brought back to [facility] on 08/30 by EMS for unresponsive and was noted to be hypotensive on field per EMS. Patient was not hypoglycemic on admission. Received 2 doses on Narcan in the ER, with no immediate effect, but after about 5-7 mins patient was awake and verbal. Assessment and plan: 1. Unresponsive episode, altered mental status 2. Acute cystitis without hematuria 3. Suspicion of exogenous administration of drugs ?opiates or benzos 4. Hypotension resolved 5. Hypoxia 2/2 pleural effusion ?drugs, no e/o pneumonia 6. Lytic bone lesions concerning for MM 7. Chronic sinus bradycardia Plan - Monitor on telemetry - 1:1 sitter for safety. - Avoid opiates/ narcotics/ benzos or any sedatives -Prelim blood cultures show no growth - IV ceftriaxone for UTI, UC growing klebsiella pnuemonia and Proteus mirabilis x 2 more days. - Social work consult - Hematology advising. SPEP not suggestive of MM, but has FLCs positive. Would have to rule out malignancy vs MM. Plan to get a bone scan. As per the configuration technician, whol body bone scan could be done in the am ie 09/05. - Skeletal survey s/o multiple myeloma - Monitor accucheks for hypoglycemia - Continue home meds of losartan and norvasc. Would increase the dose of losartan, if needed. - As per the family's request, the urine sample to be sent for Printer Slotter Operator analysis for characterizing benzos+opiates. Await results - Plan for a family meeting - Discussed w/ psychiatrist who recommended the lexapro could be started in her, but might expect some mood effects given the change. Lexapro doesnt have any cross reactivity w/ assays, as per her research into this topic of cross reactivity of sertraline w/ benzos/opiates in an assay. - Arredondo cath has been dc'ed, but would have to re-insert given the need for collecting 24 hrs for the assay. DVT ppx Eliquis. Full code. Pain pathway Problem List: 1. Bone lesion 2. Altered mental status Pain Ratin Pain Location: back Pain Goal: Pain 4 or less Pain Plan: tylenol prn Tomorrow's Labs & Rationales: cbc bep Ernesto Chairez 09/05/17 1112: Attending MD Review Statement Attending Statement Attending MD Statement: examined this patient, discuss w/resident/PA/SCHOOL SPEECH LANGUAGE PATHOLOGIST, agreed w/resident/PA/SCHOOL SPEECH LANGUAGE PATHOLOGIST, discussed with family, reviewed EMR data (avail), discussed with nursing, discussed with case mgmt, reviewed images, amended to note Attending Assessment/Plan: Patient seen/examined bedside. Denies any new complaints. Awake, alert. Patient for bone scan today. Arredondo catheter for UPEP collection as UTI cleared up after antibitocis doses. Urine durg testing sent for mass-spectrometry , awaited results Psych appreciated changed sertraline to escitalopram 5mg Cardiology for chronic sinus bradycardia with h/o afib on a/c. eliquis. Continue telemetry. hyertension controlled, initally hypotensive on presentation, c/w current regimen Hematology evalauted for concern for abnormal lytic lesions on imaging. Follow hematology and work up as per hematolgoy. Fall precauitons, decubiti precautions. gi/dvt prophylaxis
[2017-09-05 08:15] LABS: ABSOLUTE BASOPHIL COUNT 0 /CUMM (0.0-0.2); ABSOLUTE EOSINOPHIL COUNT 0.2 /CUMM (0.0-0.7); ABSOLUTE GRANULOCYTE CT 4.4 /CUMM (1.4-6.5); ABSOLUTE LYMPH COUNT 1.7 /CUMM (1.2-3.4); ABSOLUTE MONOCYTE COUNT 0.4 /CUMM (0.10-0.60); BASOPHIL % 0.2 % (0.0-2.0); EOSINOPHIL % 3.7 % (0-5); GRANULOCYTE % 64.7 % (42.2-75.2); HEMATOCRIT 26.5 % (37-47); MEAN CORPUSCULAR HGB 31.3 PG (27.0-31.0); MEAN CORPUSCULAR HGB CONC 33.8 G/DL (33.0-37.0); MEAN CORPUSCULAR VOLUME 92.5 FL (81.0-99.0); MEAN PLATELET VOLUME 11.5 FL (7.4-10.4); PLATELET COUNT 152 /CUMM (130-400); RBC DISTRIBUTION WIDTH 13.9 % (11.5-14.5); RED BLOOD CELL CT 2.87 /CUMM (4.20-5.40); WHITE BLOOD CELL COUNT 6.7 /CUMM (4.8-10.8)
--- NOTE | 2017-09-05 11:19 | PN- Cardiology ---
Subjective Subjective: No clinical change. Alert. Continues to have sinus rhythm and sinus bradycardia on the monitor. Objective Vital Signs and I&Os Vital Signs Date Time Temp Pulse Resp B/P B/P Pulse O2 O2 Flow FiO2 Mean Ox Delivery Rate 09/05 0820 60 118/54 09/05 0653 98.3 52 20 118/54 95 Room Air 09/04 2151 98.2 57 18 156/68 98 Room Air 09/04 2050 60 156/68 09/04 1454 97.6 48 16 132/74 96 09/04 1143 54 140/64 Intake & Output 09/05 1600 09/05 0800 09/05 0000 09/04 1600 09/04 0800 09/04 0000 Intake Total 120 180 240 120 120 Output Total Balance 120 180 240 120 120 Intake, Oral 120 180 240 120 120 Number 1 1 Bowel Movements Patient 144 lb 145 lb Weight Weight Bed scale Bed scale Measurement Method Physical Exam: General Appearance: well developed/nourished, alert, awake, oriented Head: normal HEENT: Normal Neck: supple, JVP normal, carotid upstrokes normal bilaterally, no masses or thyromegaly Respiratory: chest non-tender, clear to auscultation and percussion bilaterally Cardiovascular: regular rate/rhythm, normal S1, S2, 1-2/6 systolic murmur Abdomen: normal bowel sounds, soft, non-tender Extremities: normal inspection, no significant edema Vascular: Pulses are 2+ and equal bilaterally Neurologic: Grossly normal/nonfocal Current Medications: Current Medications Sig/Renee Start time Last Medication Dose Route Stop Time Status Admin Amlodipine Besylate 5 MG DAILY 09/01 09 AC 09/05 PO 08 Apixaban 2.5 MG BID 08/31 09 AC 09/05 PO 0819 Atorvastatin Calcium 80 MG 1700 08/31 1700 AC 09/04 PO 1714 Ceftriaxone Sodium 1,000 MG DAILY 09/03 1530 DC 09/04 IV 1144 Escitalopram Oxalate 5 MG DAILY 09/04 1055 AC 09/05 PO 0819 Ferrous Sulfate 325 MG DAILY 08/31 09 AC 09/05 PO 0819 Losartan Potassium 50 MG QPM 08/31 2100 AC 09/04 PO 2050 Omeprazole 40 MG DAILY AC 09/06 0700 AC PO Pantoprazole Sodium 40 MG DAILY 08/31 0900 DC 09/05 IV 0824 Results Last 48 Hrs of Labs/Mics: Laboratory Tests 09/05/17 0607: Anion Gap 7, Estimated GFR > 60, BUN/Creatinine Ratio 23.8, CBC w Diff NO MAN DIFF REQ, RBC 2.87 L, MCV 92.5, MCH 31.3 H, MCHC 33.8, RDW 13.9, MPV 11.5 H, Gran % 64.7, Lymphocytes % 25.5, Monocytes % 5.9, Eosinophils % 3.7, Basophils % 0.2, Absolute Granulocytes 4.4, Absolute Lymphocytes 1.7, Absolute Monocytes 0.4 , Absolute Eosinophils 0.2, Absolute Basophils 0 09/04/17 0621: Anion Gap 10, Estimated GFR > 60, BUN/Creatinine Ratio 24.3, CBC w Diff NO MAN DIFF REQ, RBC 2.96 L, MCV 91.7, MCH 30.6, MCHC 33.3, RDW 13.8, MPV 11.1 H, Gran % 62.1, Lymphocytes % 28.3, Monocytes % 6.1, Eosinophils % 3.2, Basophils % 0.3, Absolute Granulocytes 4.3, Absolute Lymphocytes 2.0, Absolute Monocytes 0.4 , Absolute Eosinophils 0.2, Absolute Basophils 0 Assessment/Plan Assessment/Plan Assessment: 1. Altered mental status of unclear etiology; possible response to Narcan 2. 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 3. Recent admission for AMS/hypoglycemia with concern for exogenous insulin administration 4. UTI 5. Dementia 6. History of prior CVA 7. Positive urine toxicology 8. Hypertension 9. Sinus bradycardia, intermittently in the 40's Plan: * Continue current medications * Continue to monitor for further bradycardia on telemetry. Permanent pacemaker may be a consideration at some point. However, as previously noted, the patient 's family is reluctant to consider this at the present time. Other than sinus bradycardia, no new arrhythmias have been identified. Continue telemetry? Yes
--- NOTE | 2017-09-05 15:12 | NUCLEAR MEDICINE REPORT ---
EXAMINATION: NM BONE SCAN WHOLE BODY CLINICAL INFORMATION: 3 no change disease versus multiple myeloma versus malignancy. COMPARISON: No previous bone scan is available for comparison. Previous radiographs including a bone survey dated 09/01/2017 an radiographs of the chest dated 08/30/[address] scans of the head, abdomen, and pelvis dated 08/30/2017 also available for comparison in there is a CT scan of the chest, abdomen, and pelvis dated 08/19/2017 available for comparison. TECHNIQUE: Multiple gamma scintillation camera images of the whole body were performed 3 hours following the intravenous administration of 24.4 mCi Tc-99m HDP. A few additional images including lateral views of the head could not be obtained because of the patient's inability to cooperate. FINDINGS: In the head, there is moderately increased activity in the paranasal sinus region, probably in the ethmoid sinus. This is difficult to localize in the absence of lateral views of the head. In the thoracic cage and upper extremities, there is mildly increased activity somewhat diffusely in the right shoulder, most prominently in the right acromioclavicular joint and there is mildly increased activity in the right sternoclavicular joint. There is some residual radiopharmaceutical in the region of the injection site in the right forearm and wrist regions. In the spine, there is a mild thoracic scoliosis with lower thoracic convexity to the right. In the pelvis, no significant abnormalities are present. In the lower extremities, there is mildly increased activity in the patellar and medial compartments of both knees. There is some mild increase in cortical activity in the medial cortex of the mid femoral shafts and in the medial and lateral cortices of the tibias bilaterally. No other definite bony abnormalities are noted. The urinary bladder and faint visualization of both kidneys are noted. IMPRESSION: Mild nonspecific abnormalities are noted as described above and these are all likely arthritic or traumatic in etiology. None of these abnormalities is strongly suspicious for metastatic disease.
[2017-09-05 15:23] VITALS: BP 160/80
[2017-09-05 22:33] VITALS: BP 164/80
[2017-09-06 06:30] VITALS: BP 162/78
[2017-09-06 07:48] LABS: ABSOLUTE BASOPHIL COUNT 0 /CUMM (0.0-0.2); ABSOLUTE EOSINOPHIL COUNT 0.2 /CUMM (0.0-0.7); ABSOLUTE GRANULOCYTE CT 4.4 /CUMM (1.4-6.5); ABSOLUTE MONOCYTE COUNT 0.4 /CUMM (0.10-0.60); BASOPHIL % 0.3 % (0.0-2.0); EOSINOPHIL % 3.4 % (0-5); HEMATOCRIT 26.9 % (37-47); MEAN CORPUSCULAR HGB 31.2 PG (27.0-31.0); MEAN CORPUSCULAR HGB CONC 33.9 G/DL (33.0-37.0); MEAN CORPUSCULAR VOLUME 92.1 FL (81.0-99.0); MEAN PLATELET VOLUME 11.2 FL (7.4-10.4); RBC DISTRIBUTION WIDTH 13.6 % (11.5-14.5); RED BLOOD CELL CT 2.92 /CUMM (4.20-5.40)
--- NOTE | 2017-09-06 09:05 | PN- Housestaff ---
See Addendum Subjective Follow-up For: 1. Unresponsive episode, altered mental status 2. Acute cystitis without hematuria 3. Suspicion of exogenous administration of drugs ?opiates or benzos 4. Hypotension resolved 5. Hypoxia 2/2 pleural effusion ?drugs, no e/o pneumonia 6. Lytic bone lesions concerning for MM 7. Chronic sinus bradycardia Tele-Events Since Last Visit: NSR HR 70s Subjective: Patient seen and examined. Sitting in the bed. Complaining of left leg pain Review of Systems Constitutional: Reports: see HPI. Objective Last 24 Hrs of Vital Signs/I&O Vital Signs Date Time Temp Pulse Resp B/P B/P Pulse O2 O2 Flow FiO2 Mean Ox Delivery Rate 09/06 0903 98.5 69 162/78 09/06 0630 98.5 69 18 162/78 93 09/05 2233 98.9 70 20 164/80 98 Room Air 09/05 2044 70 164/80 09/05 1600 Room Air 09/05 1523 98.6 73 18 160/80 96 Room Air Intake & Output 09/06 1600 09/06 0800 09/06 0000 Intake Total 120 100 240 Output Total 400 250 225 Balance -280 -150 15 Intake, Oral 120 100 240 Number 1 Bowel Movements Output, Urine 400 250 225 Patient 145 lb Weight Weight Bed scale Measurement Method Physical Exam General Appearance: Alert Cardiovascular: Normal S1, Normal S2 Lungs: Clear to Auscultation Abdomen: Soft Current Medications: Current Medications Sig/Renee Start time Last Medication Dose Route Stop Time Status Admin Amlodipine Besylate 5 MG DAILY 09/01 09 AC 09/06 PO 0903 Apixaban 2.5 MG BID 08/31 0900 AC 09/06 PO 0903 Atorvastatin Calcium 80 MG 1700 08/31 1700 AC 09/05 PO 1630 Escitalopram Oxalate 5 MG DAILY 09/04 1055 AC 09/06 PO 0903 Ferrous Sulfate 325 MG DAILY 08/31 0900 AC 09/06 PO 0903 Losartan Potassium 50 MG QPM 08/31 2100 AC 09/05 PO 2044 Nystatin 1 RU BID PRN 09/05 1630 AC 09/05 TOP 2037 Omeprazole 40 MG DAILY AC 09/06 0700 AC 09/06 PO 0626 Last 24 Hrs of Lab/Klaus Results Last 24 Hrs of Labs/Mics: Laboratory Tests 09/06/17 0620: Anion Gap 8, Estimated GFR > 60, BUN/Creatinine Ratio 25.7 H, CBC w Diff NO MAN DIFF REQ, RBC 2.92 L, MCV 92.1, MCH 31.2 H, MCHC 33.9, RDW 13.6, MPV 11.2 H, Gran % 62.0, Lymphocytes % 28.5, Monocytes % 5.8, Eosinophils % 3.4, Basophils % 0.3, Absolute Granulocytes 4.4, Absolute Lymphocytes 2.0, Absolute Monocytes 0.4 , Absolute Eosinophils 0.2, Absolute Basophils 0 Assessment/Plan Assessment: 86 yo F with h/o paroxysmal Aflutter on Eliquis, HTN, ENEDINA, 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 Brought back to [facility] on 08/30 by EMS for unresponsive and was noted to be hypotensive on field per EMS. Patient was not hypoglycemic on admission. Received 2 doses on Narcan in the ER, with no immediate effect, but after about 5-7 mins patient was awake and verbal. Assessment and plan: 1. Unresponsive episode, altered mental status 2. Acute cystitis without hematuria 3. Suspicion of exogenous administration of drugs ?opiates or benzos 4. Hypotension resolved 5. Hypoxia 2/2 pleural effusion ?drugs, no e/o pneumonia 6. Lytic bone lesions concerning for MM 7. Chronic sinus bradycardia Plan - Monitor on telemetry - 1:1 sitter for safety. - Avoid opiates/ narcotics/ benzos or any sedatives -Prelim blood cultures show no growth - IV ceftriaxone for UTI, UC growing klebsiella pnuemonia and Proteus mirabilis course complete - Social work consult - Hematology advising. SPEP not suggestive of MM, but has FLCs positive. Would have to rule out malignancy vs MM. Patient underwent bone scan yesterday which showed mild nonspecific abnormalities which are more likely arthritic or traumatic in etiology is less likely to be metastatic - Skeletal survey s/o multiple myeloma - Monitor accucheks for hypoglycemia - Continue home meds of losartan and norvasc. Would increase the dose of losartan, if needed. - As per the family's request, the urine sample to be sent for Director Of Instruction analysis for characterizing benzos+opiates. Await results -Patient is currently on Lexapro aspirin as per psych recommendations - Arredondo cath was initially discontinued but later was re-inserted given the need for collecting 24 hrs for the assay. DVT ppx Eliquis. Full code. Pain pathway Problem List: 1. Hypoglycemia Pain Ratin Pain Location: na Pain Goal: Pain 4 or less Pain Plan: prn Tomorrow's Labs & Rationales: lisa garcia
[2017-09-06 09:26] LABS: PLATELET COUNT 137 /CUMM (130-400); WHITE BLOOD CELL COUNT 7.1 /CUMM (4.8-10.8)
[2017-09-06 14:00] VITALS: BP 164/80
[2017-09-06 21:53] VITALS: BP 142/60
[2017-09-07 06:30] VITALS: BP 140/58
[2017-09-07 08:26] LABS: ABSOLUTE BASOPHIL COUNT 0 /CUMM (0.0-0.2); ABSOLUTE EOSINOPHIL COUNT 0.2 /CUMM (0.0-0.7); ABSOLUTE GRANULOCYTE CT 3.4 /CUMM (1.4-6.5); ABSOLUTE LYMPH COUNT 1.9 /CUMM (1.2-3.4); ABSOLUTE MONOCYTE COUNT 0.4 /CUMM (0.10-0.60); BASOPHIL % 0.4 % (0.0-2.0); EOSINOPHIL % 3.5 % (0-5); GRANULOCYTE % 57.7 % (42.2-75.2); HEMATOCRIT 25.5 % (37-47); MEAN CORPUSCULAR HGB 30.8 PG (27.0-31.0); MEAN CORPUSCULAR VOLUME 90.5 FL (81.0-99.0); MEAN PLATELET VOLUME 10.8 FL (7.4-10.4); PLATELET COUNT 140 /CUMM (130-400); RBC DISTRIBUTION WIDTH 13.5 % (11.5-14.5); RED BLOOD CELL CT 2.82 /CUMM (4.20-5.40); WHITE BLOOD CELL COUNT 5.9 /CUMM (4.8-10.8)
--- NOTE | 2017-09-07 08:30 | PN- Housestaff ---
Mimi ARORA,Anais 09/07/17 0830: Subjective Follow-up For: 1. Unresponsive episode, altered mental status 2. Acute cystitis without hematuria 3. Suspicion of exogenous administration of drugs ?opiates or benzos 4. Hypotension resolved 5. Hypoxia 2/2 pleural effusion ?drugs, no e/o pneumonia 6. Lytic bone lesions concerning for MM 7. Chronic sinus bradycardia Tele-Events Since Last Visit: Sinus bradycardia, 4957, 0.08, 0.4, no overnight events Subjective: Patient was seen and examined, sitting in bed, complaining of left leg pain, no overnight events, stable vital signs Review of Systems Constitutional: Reports: see HPI. Objective Last 24 Hrs of Vital Signs/I&O Vital Signs Date Time Temp Pulse Resp B/P B/P Pulse O2 O2 Flow FiO2 Mean Ox Delivery Rate 09/07 0849 62 140/58 09/07 0630 98.2 49 20 140/58 97 09/06 2200 51 142/60 09/06 2153 98.6 51 142/60 94 Room Air 09/06 1400 97.7 68 20 164/80 95 Intake & Output 09/07 1600 09/07 0800 09/07 0000 Intake Total 200 100 Output Total 225 50 Balance -25 50 Intake, Oral 200 100 Output, Urine 225 50 Patient 148 lb Weight Weight Bed scale Measurement Method Physical Exam General Appearance: Alert, Cooperative, No Acute Distress HEENT: Atraumatic, PERRLA, EOMI, Mucous Membr. moist/pink Cardiovascular: Normal S1, Normal S2 Lungs: Clear to Auscultation Abdomen: Normal Bowel Sounds, Soft, No Tenderness Neurological: Normal Speech Extremities: No Clubbing, No Cyanosis, No Edema Assessment/Plan Assessment: 86 yo F with h/o paroxysmal Aflutter on Eliquis, HTN, ENEDINA, 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 Brought back to [facility] on 08/30 by EMS for unresponsive and was noted to be hypotensive on field per EMS. Patient was not hypoglycemic on admission. Received 2 doses on Narcan in the ER, with no immediate effect, but after about 5-7 mins patient was awake and verbal. Assessment and plan: 1. Unresponsive episode, altered mental status 2. Acute cystitis without hematuria 3. Suspicion of exogenous administration of drugs ?opiates or benzos 4. Hypotension resolved 5. Hypoxia 2/2 pleural effusion ?drugs, no e/o pneumonia 6. Lytic bone lesions concerning for MM 7. Chronic sinus bradycardia Plan - Monitor on telemetry - 1:1 sitter for safety. - Avoid opiates/ narcotics/ benzos or any sedatives -Prelim blood cultures show no growth - IV ceftriaxone for UTI, UC growing klebsiella pnuemonia and Proteus mirabilis course complete - Social work consult - Hematology advising. SPEP not suggestive of MM, but has FLCs positive. Would have to rule out malignancy vs MM. Patient underwent bone scan yesterday which showed mild nonspecific abnormalities which are more likely arthritic or traumatic in etiology is less likely to be metastatic - Skeletal survey s/o multiple myeloma - Monitor accucheks for hypoglycemia - Continue home meds of losartan and norvasc. Would increase the dose of losartan, if needed. - As per the family's request, the urine sample to be sent for Technical Documentation Specialist analysis for characterizing benzos+opiates. Await results -Patient is currently on Lexapro aspirin as per psych recommendations - Arredondo cath was initially discontinued but later was re-inserted given the need for collecting 24 hrs for the assay. DVT ppx Eliquis. Full code. Pain pathway Problem List: 1. Hypoglycemia Pain Ratin Pain Location: N/A Pain Goal: Remain pain free Pain Plan: Pathway Tomorrow's Labs & Rationales: cbc bep Blanka Horton MD 09/07/17 1513: Attending MD Review Statement Attending Statement Attending MD Statement: examined this patient, discuss w/resident/PA/FIRST LINE SUPERVISOR, agreed w/resident/PA/FIRST LINE SUPERVISOR, reviewed EMR data (avail) Attending Assessment/Plan: Will continue current management
[2017-09-07 14:26] VITALS: BP 120/62
--- NOTE | 2017-09-07 16:14 | PN- Cardiology ---
Subjective Subjective: The patient is awake and alert. No chest pain. No palpitations. No nausea or vomiting. Telemetry monitoring reveals improvement in sinus bradycardia. Heart rate is primarily in the 60s. Objective Vital Signs and I&Os Vital Signs Date Time Temp Pulse Resp B/P B/P Pulse O2 O2 Flow FiO2 Mean Ox Delivery Rate 09/07 1426 99.2 60 20 120/62 96 Room Air 09/07 0849 62 140/58 09/07 0630 98.2 49 20 140/58 97 09/06 2200 51 142/60 09/06 2153 98.6 51 142/60 94 Room Air Intake & Output 09/07 1600 09/07 0800 09/07 0000 09/06 1600 09/06 0800 09/06 0000 Intake Total 200 100 120 100 240 Output Total 225 50 400 250 225 Balance -25 50 -280 -150 15 Intake, Oral 200 100 120 100 240 Number 1 Bowel Movements Output, Urine 225 50 400 250 225 Patient 148 lb 145 lb Weight Weight Bed scale Bed scale Measurement Method Physical Exam: Gen: NAD HEENT: normal Lungs: clear to auscultation, normal resp. effort Heart: RRR, S1, S2, 1/6 systolic murmur Abdomen: Soft, nontender, no masses Extremities: No clubbing, cyanosis, or edema. Neuro: Awake and alert, cranial nerves intact Current Medications: Current Medications Sig/Renee Start time Last Medication Dose Route Stop Time Status Admin Amlodipine Besylate 5 MG DAILY 09/01 09 AC 09/07 PO 0849 Apixaban 2.5 MG BID 08/31 0900 AC 09/07 PO 0849 Atorvastatin Calcium 80 MG 1700 08/31 1700 AC 09/06 PO 1857 Escitalopram Oxalate 5 MG DAILY 09/04 1055 AC 09/07 PO 0849 Ferrous Sulfate 325 MG DAILY 08/31 09 AC 09/07 PO 0849 Losartan Potassium 100 MG QPM 09/06 2100 AC 09/06 PO 2200 Nystatin 1 RU BID PRN 09/05 1630 AC 09/05 TOP 2037 Omeprazole 40 MG DAILY AC 09/06 0700 AC 09/07 PO 0640 Results Last 48 Hrs of Labs/Mics: Laboratory Tests 09/07/17 0650: Anion Gap 8, Estimated GFR > 60, BUN/Creatinine Ratio 22.5, CBC w Diff NO MAN DIFF REQ, RBC 2.82 L, MCV 90.5, MCH 30.8, MCHC 34.0, RDW 13.5, MPV 10.8 H, Gran % 57.7, Lymphocytes % 31.7, Monocytes % 6.7, Eosinophils % 3.5, Basophils % 0.4, Absolute Granulocytes 3.4, Absolute Lymphocytes 1.9, Absolute Monocytes 0.4 , Absolute Eosinophils 0.2, Absolute Basophils 0 09/06/17 0620: Anion Gap 8, Estimated GFR > 60, BUN/Creatinine Ratio 25.7 H, CBC w Diff NO MAN DIFF REQ, RBC 2.92 L, MCV 92.1, MCH 31.2 H, MCHC 33.9, RDW 13.6, MPV 11.2 H, Gran % 62.0, Lymphocytes % 28.5, Monocytes % 5.8, Eosinophils % 3.4, Basophils % 0.3, Absolute Granulocytes 4.4, Absolute Lymphocytes 2.0, Absolute Monocytes 0.4 , Absolute Eosinophils 0.2, Absolute Basophils 0 Assessment/Plan Assessment/Plan 1. Altered mental status of unclear etiology; possible response to Narcan 2. 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 3. Recent admission for AMS/hypoglycemia with concern for exogenous insulin administration 4. UTI 5. Dementia 6. History of prior CVA 7. Positive urine toxicology 8. Hypertension 9. Sinus bradycardia, intermittently in the 40's Plan: * Continue Eliquis * Continue losartan * Monitor for further bradycardia on telemetry. Permanent pacemaker may be a consideration at some point, however the patient's family is reluctant to consider at this point. Continue telemetry? Yes
[2017-09-07 22:00] VITALS: BP 158/62
[2017-09-08 06:56] VITALS: BP 138/62
--- NOTE | 2017-09-08 07:23 | PN- Housestaff ---
RupeshRubén troychristianotomasa 09/08/17 0721: Subjective Follow-up For: 1. Unresponsive episode, altered mental status 2. Acute cystitis without hematuria 3. Suspicion of exogenous administration of drugs ?opiates or benzos 4. Hypotension resolved 5. Hypoxia 2/2 pleural effusion ?drugs, no e/o pneumonia 6. Lytic bone lesions concerning for MM 7. Chronic sinus bradycardia Complaints: no complaints Tele-Events Since Last Visit: Normal sinus rhythm, first-degree heart block, heart rate in the range of 68-83. Overnight telemetry events were reported. Subjective: Ms Landaverde is doing well. No chest pain, no palpitations, acute dyspnea. Review of Systems Constitutional: Reports: see HPI. Objective Last 24 Hrs of Vital Signs/I&O Vital Signs Date Time Temp Pulse Resp B/P B/P Pulse O2 O2 Flow FiO2 Mean Ox Delivery Rate 09/08 0656 99.0 64 18 138/62 96 Room Air 09/07 2200 98.8 70 16 158/62 96 Room Air 09/07 2031 70 158/62 09/07 1426 99.2 60 20 120/62 96 Room Air 09/07 0849 62 140/58 Intake & Output 09/08 0800 09/08 0000 09/07 1600 Intake Total 560 Output Total 250 200 250 Balance -250 -200 310 Intake, IV 10 Intake, Oral 550 Output, Urine 250 200 250 Patient 150 lb Weight Weight Bed scale Measurement Method Physical Exam General Appearance: No Acute Distress Other Physical Findings: General Exam: AAOx1, No acute distress, Skin: No rashes, no breakdown;HEENT: PERRLA, EOMI;Neck: Supple, No JVD; No cervical lymphadenopathy;CVS: Reg Rate, Normal S1,S2, No MGR;Resp: Normal air entry, no ronchi/rales;Abdomen: Soft, No tenderness, Normal Bowel Sounds;Neuro: Normal Speech, Strength 5/5 on right upper and lower extremities, 3/5 left upper and lower extremities, Sensation intact, CN III-XII NL, Reflexes 2+;Extremities: No cyanosis, no pedal edema Current Medications: Current Medications Sig/Renee Start time Last Medication Dose Route Stop Time Status Admin Amlodipine Besylate 5 MG DAILY 09/01 09 AC 09/07 PO 08 Apixaban 2.5 MG BID 08/31 09 AC 09/07 PO 2027 Atorvastatin Calcium 80 MG 1700 08/31 1700 AC 09/07 PO 1631 Escitalopram Oxalate 5 MG DAILY 09/04 1055 AC 09/07 PO 0849 Ferrous Sulfate 325 MG DAILY 08/31 0900 AC 09/07 PO 0849 Losartan Potassium 100 MG QPM 09/06 2100 AC 09/07 PO 203 Nystatin 1 RU BID PRN 09/05 1630 AC 09/05 TOP 2037 Omeprazole 40 MG DAILY AC 09/06 0700 AC 09/08 PO 06 Last 24 Hrs of Lab/Klaus Results Last 24 Hrs of Labs/Mics: Laboratory Tests 09/08/17 0615: Sodium Pending, Potassium Pending, Chloride Pending, Carbon Dioxide Pending, Anion Gap Pending, BUN Pending, Creatinine Pending, BUN/Creatinine Ratio Pending , CBC w Diff Pending, WBC Pending, RBC Pending, Hgb Pending, Hct Pending, MCV Pending, MCH Pending, MCHC Pending, RDW Pending, Plt Count Pending, MPV Pending Assessment/Plan Assessment: 86 yo F with h/o paroxysmal Aflutter on Eliquis, HTN, ENEDINA, 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 Brought back to [facility] on 08/30 by EMS for unresponsive and was noted to be hypotensive on field per EMS. Patient was not hypoglycemic on admission. Received 2 doses on Narcan in the ER, with no immediate effect, but after about 5-7 mins patient was awake and verbal. Assessment and plan: 1. Unresponsive episode, altered mental status 2. Urinary tract infection 3. Suspicion for exogenous administration of opiates-resolved. 4. Hypotension resolved 5. Hypoxia 2/2 pleural effusion 6. Lytic bone lesions ruled out multiple myeloma, malignancy. 7. Chronic sinus bradycardia Pertinent lab findings in the last 24 hours: WBC 7.2, hemoglobin 8.9. Platelet count 148. Sodium 144, potassium 3.6, chloride 110, BUN 90, creatinine 0.9. Urine protein is a 46-pending. Toxicology-negative for benzodiazepines. Reported to be positive for noroxycodone, oxycodone. Bone scan: Mild nonspecific abnormalities are noted as described above and these are all likely arthritic or traumatic in etiology. None of these abnormalities is strongly suspicious for metastatic disease. Plan - Monitor on telemetry - 1:1 sitter for safety, which could be discontinued. - Avoid opiates/ narcotics/ benzos or any sedatives. -Prelim blood cultures show no growth -Treated with IV ceftriaxone. - Social work consult. - Hematology advising. SPEP not suggestive of MM, but has FLCs positive. Would have to rule out malignancy vs MM. Await results from urine protein electrophoresis. Patient underwent bone scan yesterday which showed mild nonspecific abnormalities which are more likely arthritic or traumatic in etiology is less likely to be metastatic - Skeletal survey s/o multiple myeloma - Monitor accucheks for hypoglycemia - Continue home meds of losartan and norvasc. Would increase the dose of losartan, if needed. - As per the family's request, the urine sample to be sent for Patient Accounts Coordinator analysis for characterizing benzos+opiates, which revealed positive for opiates, and but negative for benzos. -Patient is currently on Lexapro aspirin as per psych recommendations -Discontinue Arredondo catheter. DVT ppx Eliquis. Full code. Pain pathway Final recs to follow after discussing with the attending. Problem List: 1. Bone lesion 2. Altered mental status Pain Ratin Pain Location: back Pain Goal: Pain 4 or less Pain Plan: tylenol Tomorrow's Labs & Rationales: cbc bep Ernesto Chairez 09/08/17 1138: Attending MD Review Statement Attending Statement Attending MD Statement: examined this patient, discuss w/resident/PA/REMOTELY PILOTED VEHICLE CONTROLLER, agreed w/resident/PA/REMOTELY PILOTED VEHICLE CONTROLLER, discussed with family, reviewed EMR data (avail), discussed with nursing, discussed with case mgmt, reviewed images, amended to note Attending Assessment/Plan: Patient seen/examined bedside. Weekend events noted. Lab results noted. Hematology noted. Psych appreciated changed sertraline to escitalopram 5mg Cardiology for chronic sinus bradycardia with h/o afib on a/c. eliquis. hyertension controlled, initally hypotensive on presentation, c/w current regimen Hematology evalauted for concern for abnormal lytic lesions on imaging no evidence of multiple myeloma. F/u UPEP. Follow hematology as outpatient. Fall precauitons, decubiti precautions. gi/dvt prophylaxis Anticipate dc planning. Updated family.
--- NOTE | 2017-09-08 07:36 | PN- Hematology ---
Subjective Subjective: History is difficult to obtain. She has no fever or chills. She denies issues with breathing. She reports pain all over. Review of Systems Constitutional: Denies: chills, fever. Cardiovascular: Denies: chest pain. Gastrointestinal: Denies: abdominal pain. Musculoskeletal: Reports: see HPI. All Other Systems: Reviewed and Negative Comments: Limited due to mental status and language. Objective Vital Signs and I&Os Vital Signs Date Time Temp Pulse Resp B/P B/P Pulse O2 O2 Flow FiO2 Mean Ox Delivery Rate 09/08 0656 99.0 64 18 138/62 96 Room Air 09/07 2200 98.8 70 16 158/62 96 Room Air 09/07 2031 70 158/62 09/07 1426 99.2 60 20 120/62 96 Room Air 09/07 0849 62 140/58 Intake & Output 09/08 0800 09/08 0000 09/07 1600 09/07 0800 09/07 0000 09/06 1600 Intake Total 560 200 100 120 Output Total 250 200 250 225 50 400 Balance -250 -200 310 -25 50 -280 Intake, IV 10 Intake, Oral 550 200 100 120 Output, Urine 250 200 250 225 50 400 Patient 68.067 kg 67.16 kg Weight Weight Bed scale Bed scale Measurement Method Physical Exam: General Appearance: no apparent distress, alert, awake Head: atraumatic, normal appearance Respiratory: normal breath sounds, chest non-tender, quiet respiration Cardiovascular: regular rate/rhythm Gastrointestinal: normal bowel sounds, soft, tenderness (PEG area) Extremities: no edema Neurologic/Psych: awake, alert, motor weakness (Left side), motor/sensory deficits (Left side, stable) Skin: normal color, warm/dry Lymphatic: no anterior cervical sourav Current Medications: Current Medications Sig/Renee Start time Last Medication Dose Route Stop Time Status Admin Amlodipine Besylate 5 MG DAILY 09/01 09 AC 09/07 PO 0849 Apixaban 2.5 MG BID 08/31 09 AC 09/07 PO 202 Atorvastatin Calcium 80 MG 1700 08/31 1700 AC 09/07 PO 1631 Escitalopram Oxalate 5 MG DAILY 09/04 1055 AC 09/07 PO 0849 Ferrous Sulfate 325 MG DAILY 08/31 0900 AC 09/07 PO 0849 Losartan Potassium 100 MG QPM 09/06 2100 AC 09/07 PO 203 Nystatin 1 RU BID PRN 09/05 1630 AC 09/05 TOP 2038 Omeprazole 40 MG DAILY AC 09/06 0700 AC 09/08 PO 0627 Results Last 24 Hours of Lab Results: Laboratory Tests 09/08 0615 Chemistry Sodium Pending Potassium Pending Chloride Pending Carbon Dioxide Pending Anion Gap Pending BUN Pending Creatinine Pending BUN/Creatinine Ratio Pending Hematology CBC w Diff Pending WBC Pending RBC Pending Hgb Pending Hct Pending MCV Pending MCH Pending MCHC Pending RDW Pending Plt Count Pending MPV Pending Recent Imaging Studies: Bone scan 09/05/2017: Mild nonspecific abnormalities are noted as described above and these are all likely arthritic or traumatic in etiology. None of these abnormalities is strongly suspicious for metastatic disease. Assessment/Plan Hematology Assessment/Recommendations: Ms. 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 Patient is unable to give history today. History obtained mainly through chart review. She presented with AMS and hypotension. She responded after receiving Narcan. Urine toxicology screening was noted to have opiates and benzos. She was noted to be anemic. CT of the abdomen and pelvis noted innumerable suggestion of innumerable tiny lytic bone lesions with endosteal scalloping in the visualized forearms and hands. Skeletal survey demonstrated diffuse osteopenia. There are subtle permeative lucencies in the upper cervical spine as well as in the forearms, femurs, tibia and fibula bilaterally. Bone scan is unremarkable. SPEP is unremarkable. Serum free light chain ratio is slightly elevated and nonspecific. Serum immunoglobulins are normal. Calcium is normal. Anemia is stable. Vitamin B12 and folate are normal. Renal function is normal. UPEP pending. Currently, she has no obvious evidence of MM. Lytic lesions: -Follow up UPEP -Further work up may be done as outpatient, no evidence of MM currently Anemia: -monitor for now -transfusion as needed Please call [phone] with any questions or concerns. Problem List: 1. Bone lesion 2. Hypertension 3. Symptomatic anemia
[2017-09-08 07:57] LABS: ABSOLUTE BASOPHIL COUNT 0 /CUMM (0.0-0.2); ABSOLUTE EOSINOPHIL COUNT 0.2 /CUMM (0.0-0.7); ABSOLUTE GRANULOCYTE CT 4.2 /CUMM (1.4-6.5); ABSOLUTE LYMPH COUNT 2.3 /CUMM (1.2-3.4); ABSOLUTE MONOCYTE COUNT 0.5 /CUMM (0.10-0.60); BASOPHIL % 0.4 % (0.0-2.0); EOSINOPHIL % 2.7 % (0-5); GRANULOCYTE % 58.4 % (42.2-75.2); HEMATOCRIT 26.7 % (37-47); MEAN CORPUSCULAR HGB 30.8 PG (27.0-31.0); MEAN CORPUSCULAR HGB CONC 33.3 G/DL (33.0-37.0); MEAN CORPUSCULAR VOLUME 92.5 FL (81.0-99.0); MEAN PLATELET VOLUME 10.8 FL (7.4-10.4); PLATELET COUNT 148 /CUMM (130-400); RBC DISTRIBUTION WIDTH 13.8 % (11.5-14.5); RED BLOOD CELL CT 2.89 /CUMM (4.20-5.40); WHITE BLOOD CELL COUNT 7.2 /CUMM (4.8-10.8)
--- NOTE | 2017-09-08 10:36 | Discharge Summary ---
Visit Information Visit Dates Admission Date: 09/01/17 Discharge Date: 09/08/17 Hospital Course Course Attending Physician: Ernesto Chairez MD Primary Care Physician: Patient Has No Primary Care Dr Hospital Course: Ms Landaverde is an 86 year old woman with dementia who was being taken care of at home by her family members, has a PMHx of paroxysmal atrial fibrillation on apixaban, tachy-cindy syndrome, hypertension, left-sided CVA with residual deficit, dysphagia, recurrent hypoglycemic episodes (last admission 2 days prior , with laboratory evidence of exogenous insulin administration), type 2 diabetes not on any medications presented to the hospital with a chief concern of altered mental status on 09/01/17 likely drug overdose, or UTI. At the time of presentation, temperature 94.6, pulse rate 48, blood pressure 141 /62, 98% on 4 L. She was more alert after she received Narcan in the emergency room. She was admitted to telemetry service given her history of chronic sinus bradycardia. Pertinent lab findings at the time of admission: WBC 7.1, hemoglobin 9.7, platelets 145. Sodium 142, potassium 4.2, BUN 31, creatinine 1.0. Urinalysis revealed pyuria, and urine culture was suggestive of growth of Proteus and Klebsiella sensitive to cephalosporins. Urine toxicology analysis revealed urine opiates 265 ng/milliliters and benzodiazepines 96 ng/milliliters. There was an incidental finding of tiny lytic bone lesions with endosteal scalloping in forearms and hands. There was a concern for multiple myeloma. Given her abnormal urinalysis and urine cultures, she was treated with ceftriaxone. She was afebrile, and was hemodynamically stable in the hospital. She continued to be in normal sinus rhythm with heart rate in the range of 50- 70s. Since she had urinary incontinence, a Arredondo catheter was placed for laboratory evaluation of urine samples, such as 24 hour urine collections. She did not have any abnormal arrhythmias while she was on telemetry floor. She had a history of hypertension, and antihypertensive medications were titrated accordingly; the dose of Cozaar has been increased from 50 mg 100 mg daily for adequate BP control. Since she had abnormal urine toxicology, with opiates and benzodiazepines in urine when lab testing done at [facility]; an immunoassay that can have cross-reactivity with benzodiazepines since she was seroquel. ( discussed w/ the lab personnel ). A follow-up lab testing done at [facility], with mass spectroscopy analysis revealed positive opiates noro-oxycodone, and oxycodone, but negative benzodiazepines. It is possible that seroquel was interefering with the assay, and medication was changed to escitalopram. It was uncertain, if there was any administration of opiates that were not prescribed to her. Given her abnormal urine toxicology, elderly protection services was contacted to evaluate if she was being administered any medications that were not prescribed to her. Given incidental finding of lytic lesions on skeleton, further workup was done with serum protein electrophoresis that revealed no evidence of multiple myeloma. UPEP was still pending at the time of discharge. She also had elevation in free light chains-Coyle And lambda with kappa/lambda light chain ratio of 2.1. Follow-up skeletal survey revealed extensive bone demineralization and osteopenia and subtle permeative lucencies suspicion for multiple myeloma or metastatic disease was raised. Subsequently bone scan revealed mild nonspecific abnormalities suggestive of arthritic or traumatic in etiology, but there was no suspicion for multiple myeloma or metastatic disease. Data Integrity Consultant/oncologist was consulted for advice. In regards to her bradycardia, cardiology was consulted for advice. A permanent pacemaker was advised, by the commercial relief driver pending decision from the family. She was recommended to follow up with her commercial relief driver for further recommendation. While she was in the hospital, she tolerated diet well, and did not have any episodes of aspiration. Given her degree of osteopenia noted on radiology, she was advised to follow-up with a primary care physician for laboratory evaluation including vitamin D and calcium. She was slightly hypertensive, and the dose of cozaar was increased to 100mg. Problem list: 1. Altered mental status 2. UTI 3. Abnormal drug screen 4. Chronic bradycardia 5. H/o Afib on Apixaban Consults: #1 cardiology-Shahzad Abreu MD #2 psychiatry-Oriana Jung MD #3 Hematology- Victorino Boykin MD Allergies: Coded Allergies: NO KNOWN ALLERGIES (05/29/15) Pertinent Lab Results: RAD - XRY-PORTABLE CHEST XRAY 08/30/17-1846 Heart remains enlarged, LEFT hemidiaphragm is partially obscured probably by overlapping soft tissue of the breast, cannot rule out underlying mildinfiltrates. There is increased interstitial lung markings unchanged. No large effusion or pneumothorax. CAT - CT HEAD WO IV CONTRAST 08/30/17-191 Exam essentially unchanged, old infarct with encephalomalacia in the RIGHT parietal lobeunchanged, Deep white matter and periventricularhypoattenuation, nonspecific; however, in this patient's age group mostlikely sequela of chronic microvascular angiopathy ischemia. CAT - CT ABD & PELVIS W/O IV CONTRAS 08/30/17-1934 1. Appropriately placed percutaneous gastrostomy tube with its tip within the stomach and the balloon pulled back against the anterior wall of the stomach. 2. Though not as apparent within the axial skeleton, there is suggestion of innumerable tiny lytic bone lesions with endosteal scalloping in the visualized forearms and hands which are included within the scan volume. Clinical correlation for multiple myeloma is recommended. 3. Moderate volume of stool within the rectum with mild rectal wall thickening and stranding in the presacral fat compatible with mild stercoral colitis. 4. Trace bilateral pleural effusions with moderate cardiomegaly and a moderate sized pericardial effusion. 5. Diffuse atherosclerotic vascular calcification without abdominal aortic aneurysm RAD - XRY-BONE SURVEY 09/01/17- Difficult exam given the degree of extensive bone demineralization/osteopenia. Subtle permeative lucencies are seen in theupper cervical spine as well as in the forearms, femurs, tibia and fibula bilaterally. Findings raise the suspicion of multiple myeloma or other bonymetastatic disease. NUC - BONE SCAN 09/05/17-06 Mild nonspecific abnormalities are noted as described above and these are all likely arthritic or traumatic in etiology. None of these abnormalities isstrongly suspicious for metastatic disease. Disposition Summary Disposition Principal Diagnosis: Altered mental status Additional Diagnosis: UTI Discharge Disposition: SNF ([facility]) Discharge Instructions General Discharge Information Code Status: Full Code Patient's Diet: regular diet Patient's Activity: as tolerated Follow-Up Instructions/Appts: 1. Please follow-up with your primary care provider within a week of discharge. Medications at Discharge Discharge Medications: Stop taking the following medications: Losartan Potassium (Losartan Potassium) 50 MG TABLET ORAL Every night Qty = 60 Sertraline HCl (Sertraline HCl) 25 MG TABLET ORAL DAILY Qty = 30 Continue taking these medications: Atorvastatin Calcium (Atorvastatin Calcium) 80 MG TABLET 1 Tablet ORAL 5 PM Qty = 30 Comments: Last Taken:09/07/17 Time:4PM Ferrous Sulfate (IRON) 325 MG (65 MG IRON) TABLET 1 Tablet ORAL DAILY Comments: Last Taken:09/08/17 Time:9AM Pantoprazole Sodium (Pantoprazole Sodium) 40 MG TABLET.DR 1 Tablet ORAL DAILY Qty = 60 Comments: NOT GIVEN IN HOSPITAL OMEPRAZOLE GIVEN 09/08/17 @ 700 AM Multivitamin (Multivitamins) 1 EACH CAPSULE 1 Tablet ORAL DAILY Comments: NOT GIVEN IN HOSPITAL. Ergocalciferol (Vitamin D2) (Vitamin D2) 50,000 UNIT CAPSULE 1 Capsule ORAL EVERY FRIDAY Qty = 12 Comments: NOT GIVEN IN HOSPITAL Apixaban (Eliquis) 2.5 MG TABLET 1 Tablet ORAL TWICE DAILY Comments: Last Taken: 09/08/17 Time: 9AM Vitamin B Complex (Super B-50 Complex) 1 EACH CAPSULE 1 Capsule ORAL DAILY Comments: NOT GIVEN IN HOSPITAL Lactobacillus Acidophilus (Probiotic) 10 BILLION CELL CAPSULE 1 Capsule ORAL DAILY Comments: NOT GIVEN IN HOSPITAL. Acetaminophen (Acetaminophen) 325 MG TABLET 2 Tablet ORAL THREE TIMES DAILY as needed for pain Comments: Last Taken:08/27/17 Time:8AM Gabapentin (Gabapentin) 100 MG CAPSULE 1 Capsule ORAL DAILY Comments: NOT TAKEN Polyethylene Glycol 3350 (Miralax) 17 GRAM/DOSE POWDER 17 Gram ORAL DAILY Qty = 30 Instructions: pLEASE HOLD IF LOOSE STOOL Comments: NOT GIVEN IN HOSPITAL. Sennosides/Docusate Sodium (Senna Plus Tablet) 8.6 MG-50 MG TABLET 2 Tablet ORAL DAILY Qty = 60 Instructions: PLEASE HOLD IF LOOSE STOOL Comments: NOT GIVEN IN HOSPITAL. Amlodipine Besylate (Amlodipine Besylate) 5 MG TABLET 5 Milligram ORAL DAILY Qty = 30 Instructions: . Comments: Last Taken:09/08/17 Time:9AM Start taking the following new medications: Losartan (Cozaar) 100 MG TABLET 100 Milligram ORAL Every night Qty = 30 No Refills Comments: Last Taken: 09/08/17 Time: 830 PM Escitalopram Oxalate (Lexapro) 5 MG TABLET 5 Milligram ORAL DAILY Qty = 30 Refills = 1 Comments: Last Taken: 09/08/17 Time: 9AM Copies To: Tariq ARORA,Tariq Attending Review Statement Documenting Attending: Ernesto Chairez MD
[2017-09-08] MEDS ORDERED: COZAAR100 M1 PO (10:37)
[2017-09-08] MEDS ORDERED: LEXAPRO5 M1 PO (10:37)
--- NOTE | 2017-09-08 10:38 | Patient Discharge Instructions ---
Discharge Instructions General Discharge Information You were seen/treated for: -Altered mental status Watch for these problems: 1. altered mental status 2. Chest pain, shortness of breath, palpitations Special Instructions: 1. Please follow-up with your primary care provider within a week of discharge. 2. 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 Please discuss with him about a possible pacemaker placement in the future. 3. Please follow-up with your primary care physician about the newer medications that were added. 4. Please avoid taking any opiates such as morphine, Percocet, Dilaudid. Please also avoid taking any benzodiazepines such as Ativan, diazepam. Please discuss with your primary care physician before starting any of these medications. 5. Please discuss with your funeral driver regarding your diabetes management. 4. Please follow-up with your email developer within a week of discharge. Please follow up about the urine test that was done recently-UPEP. Diet Continue normal diet: Yes Acute Coronary Syndrome Inclusion Criteria At DC or during hospital stay patient has or had the following: ACS DIAGNOSIS No Discharge Core Measures Meds if any: Prescribed or Continued at Discharge Meds if any: NOT Prescribed or Continued at Discharge Congestive Heart Failure Inclusion Criteria At DC or during hospital stay patient has or had the following: CHF DIAGNOSIS No Discharge Core Measures Meds if any: Prescribed or Continued at Discharge Meds if any: NOT Prescribed or Continued at Discharge Cerebrovascular accident Inclusion Criteria At DC or during hospital stay patient has or had the following: CVA/TIA Diagnosis No Discharge Core Measures Meds if any: Prescribed or Continued at Discharge Meds if any: NOT Prescribed or Continued at Discharge Venous thromboembolism Inclusion Criteria VTE Diagnosis No VTE Type NONE VTE Confirmed by (Test) NONE Discharge Core Measures - Per Current guidelines, there needs to be overlap - treatment for the first 5 days of Warfarin therapy. - If discharged on Warfarin prior to 5 days of - overlap therapy, the patient will need to be - assessed for post discharge needs including - *Post discharge parental anticoagulation - *Warfarin and/or parental anticoagulation education - *Follow up date to check INR post discharge At least 5 days overlap therapy as Inpatient No Meds if any: Prescribed or Continued at Discharge Note: Overlap Therapy is Warfarin and Anticoagulant Meds if any: NOT Prescribed or Continued at Discharge
[2017-09-08 15:04] VITALS: BP 116/56
[2017-09-08 15:30] VITALS: BP 116/56
== END 2017-09-08 16:45 | DRG 918 ==
LOC: ERH 18:31 → ERHI 23:03 → 1NO 23:03 → ENRESERV 08-31 00:09 → 1NO 08-31 02:14
PROVIDERS: Emergency Medicine; Hospitalist; Internal Medicine; Internal Medicine Endocrinology, Diabetes & Metabolism; Student in an Organized Health Care Education/Training Program
DX: T40.601A Poisoning by unspecified narcotics, accidental (unintentional), initial encounter (principal); N39.0 Urinary tract infection, site not specified; I69.354 Hemiplegia and hemiparesis following cerebral infarction affecting left non-dominant side; I48.92 Unspecified atrial flutter; J90 Pleural effusion, not elsewhere classified; R41.82 Altered mental status, unspecified; I10 Essential (primary) hypertension; F03.90 Unspecified dementia, unspecified severity, without behavioral disturbance, psychotic disturbance, mood disturbance, and anxiety; D64.9 Anemia, unspecified; E11.9 Type 2 diabetes mellitus without complications; R00.1 Bradycardia, unspecified; R09.02 Hypoxemia; R13.10 Dysphagia, unspecified; Z79.01 Long term (current) use of anticoagulants; E78.5 Hyperlipidemia, unspecified; I83.93 Asymptomatic varicose veins of bilateral lower extremities; H26.9 Unspecified cataract; F32.9 Major depressive disorder, single episode, unspecified; K21.9 Gastro-esophageal reflux disease without esophagitis; Z86.711 Personal history of pulmonary embolism; M54.9 Dorsalgia, unspecified; M89.9 Disorder of bone, unspecified; Z75.2 Other waiting period for investigation and treatment; Z93.4 Other artificial openings of gastrointestinal tract status; I95.9 Hypotension, unspecified
CPT/HCPCS: 1NP; 80361; 83883; ERO; 36592; 71045; 74176; 77075; 80307; 81001; 82436; 82784; 84165; 84166; 87040; 87086; 93005; 93010; 97165-GO; 99291; A9561; G0480; G6056; J0360; J0696; J1650; J2310; J3490